=== PATIENT | male | born 1950 | race Caucasian/White ===

== ENCOUNTER → 2018-04-01 | Outpatient (CLI) | payer MEDICARE, MEDICAID | LOC: WOUNDCARE 08:09 | PROVIDERS: ATTEND Nurse Practitioner | DX: L89.153 Pressure ulcer of sacral region, stage 3 (principal) | CPT/HCPCS: 99203 ==

== ENCOUNTER → 2018-04-29 | Outpatient (CLI) | payer MEDICARE, MEDICAID | LOC: RAD 12:29 | PROVIDERS: ATTEND Nurse Practitioner | DX: L89.153 Pressure ulcer of sacral region, stage 3 (principal); Z53.8 Procedure and treatment not carried out for other reasons ==

== ENCOUNTER → 2018-04-29 | Outpatient (CLI) | payer MEDICARE, MEDICAID | LOC: WOUNDCARE 10:44 | PROVIDERS: ATTEND Nurse Practitioner | DX: L89.153 Pressure ulcer of sacral region, stage 3 (principal) | CPT/HCPCS: 99213 ==

== ENCOUNTER → 2018-05-06 | Outpatient (CLI) | payer MEDICARE, MEDICAID | LOC: WOUNDCARE 11:03 | PROVIDERS: ATTEND Nurse Practitioner | DX: L89.153 Pressure ulcer of sacral region, stage 3 (principal) | CPT/HCPCS: 99213 ==

== ENCOUNTER → 2018-05-16 | Outpatient (CLI) | payer MEDICARE, MEDICAID ==
--- NOTE | 2018-05-16 11:53 | Diagnostic Imaging Report ---
INDICATION: Pressure ulcer. COMPARISON: None. FINDINGS: Multiple radiographic views of the sacrum and coccyx were obtained. Coccyx is very difficult to visualize on the lateral view and does raise concern for potential underlying osteolysis. No other acute fracture or dislocation is seen. SI joints are symmetric. Overall bone marrow density is also diminished throughout the visualized portions of the pelvis. Postsurgical changes of previous bilateral hip replacements are noted. There is also diffuse calcified arterial sclerosis. IMPRESSION: 1. Poor visualization of the coccyx on the lateral view. Findings may be artifactual and related to obscuration, but does raise concern for underlying osteolysis related to osteomyelitis. Correlation with MRI is recommended. Dictated by: Dictated on workstation # [id number]
== END ==
LOC: RAD FS 10:38
PROVIDERS: ATTEND Nurse Practitioner
DX: L89.153 Pressure ulcer of sacral region, stage 3 (principal); Z96.643 Presence of artificial hip joint, bilateral
CPT/HCPCS: 72220

== ENCOUNTER → 2018-05-20 | Outpatient (CLI) | payer MEDICARE, MEDICAID | LOC: WOUNDCARE 10:40 | PROVIDERS: ATTEND Nurse Practitioner | DX: L89.153 Pressure ulcer of sacral region, stage 3 (principal) | CPT/HCPCS: 99212 ==

== ENCOUNTER 2018-05-27 17:22 | Inpatient (IN) | payer MEDICARE, MEDICAID ==
[~2018-05-27] VITALS: Ht 172.7 cm; Wt 62.2 kg
[2018-05-27] VITALS (23 sets, daily range): BP systolic 86–164; BP diastolic 26–98
[2018-05-27] MEDS ORDERED: RT-ALBUTEROL/IPRATROPIUM 3 ML (DUONEB) VIAL INH ONE (17:30)
[2018-05-27] MEDS ORDERED: NS IV 1000 ML 1,000 ML IV SCH ×2 (17:30→20:00)
[2018-05-27] MEDS ORDERED: CEFEPIME INJECTION 1,000 MG in WATER (STERILE) FOR INJECTION 10 ML IV ONE (17:30)
--- NOTE | 2018-05-27 17:38 | ED General ---
General Source of Information: Patient, EMS Exam Limitations: No Limitations (XU KNOX) History of Present Illness Date Seen by Provider: May 27, 2018 Time Seen by Provider: 17:16 Initial Comments Patient presents to ER by EMS from [facility] with chief complaint of one day abrupt onset of weakness, fever Tmax 102 and productive cough. 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 He took ibuprofen approximately 2 hours prior to arrival 400 mg. He says it helped moderately but he started to feel some chills and body aches again. He still smokes cigarettes. He's having no nausea vomiting diarrhea headache. EMS that he had a good blood pressure and was tachycardic around 105 but they were unable to get an adequate oxygen saturation on him. (XU KNOX) Allergies and Home Medications Allergies Coded Allergies: No Known Drug Allergies (Unverified , 05/27/18) Patient Home Medication List Home Medication List Reviewed: Yes (XU KNOX) Home Medication List Reviewed: Yes (PRASAD MONTOYA MD) Review of Systems Review of Systems Constitutional: No chills, No diaphoresis EENTM: No ear discharge, No ear pain Respiratory: cough, phlegm; No short of breath; wheezing Cardiovascular: No chest pain, No edema Gastrointestinal: No abdominal pain, No diarrhea, No nausea Genitourinary: No discharge, No dysuria Musculoskeletal: No back pain, No joint pain Skin: No pruritus, No rash (XU KNOX) Past Fjegnzc-Knsajq-Xljnwa Hx Past Med/Social Hx: Reviewed Nursing Past Med/Soc Hx (PRASAD MONTOYA MD) Patient Social History Alcohol Use: Denies Use Recreational Drug Use: No Smoking Status: Current Everyday Smoker Type Used: Cigarettes Recent Foreign Travel: No Contact w/Someone Who Travel: No (XU KNOX) Physical Exam-Suspected Sepsis Physical Exam Vital Signs Vital Signs - First Documented 05/27/18 05/27/18 17:25 17:40 Temp 101.4 Pulse 95 Resp 22 B/P (MAP) 141/82 (101) Pulse Ox 82 O2 Delivery Room Air O2 Flow Rate 3.00 FiO2 95 (PRASAD MONTOYA MD) Vital Signs Capillary Refill : (XU KNOX) Height, Weight, BMI Height: '" Weight: lbs. oz. kg; BMI Method: General Appearance: Mild Distress, Thin Eyes: Bilateral Eye Normal Inspection, Bilateral Eye PERRL, Bilateral Eye EOMI HEENT: PERRL/EOMI, Pharynx Normal, Moist Mucous Membranes Neck: Full Range of Motion, Normal Inspection Respiratory: Chest Non Tender, No Accessory Muscle Use, No Respiratory Distress , Decreased Breath Sounds, Rhonci (mild, bilateral), Wheezing Cardiovascular: Regular Rate, Rhythm, No Edema, Normal Peripheral Pulses, Tachycardia (102) Gastrointestinal: Normal Bowel Sounds, Non Tender, Soft Extremity: Normal Inspection, Non Tender, No Calf Tenderness, No Pedal Edema, Slow Capillary Refill (3-4 secs) Neurologic/Psychiatric: Alert, Oriented x3, No Motor/Sensory Deficits, Normal Mood/Affect Skin: warm/dry, pallor (XU KNOX) Focused Exam Lactate Level 05/27/18 18:00: Lactic Acid Level 1.02 (PRASAD MONTOYA MD) Lactic Acid Level (PRASAD MONTOYA MD) Progress/Results/Core Measures Suspected Sepsis SIRS Temperature: Pulse: Respiratory Rate: Laboratory Tests 05/27/18 17:20: White Blood Count 11.5H Blood Pressure / Mean: Laboratory Tests 05/27/18 17:20: INR Comment 1.2, Platelet Count 266 (XU KNOX) Recent Fever Within 48 Hours: Yes Infection Criteria Present: Documented Infection Within 3hrs of presentation: Admin fluids, Admin ABX, Blood cultures prior to ABX's, Lactate level, Other (Levophed for hypotension) (PRASAD MNOTOYA MD) Results/Orders Lab Results Laboratory Tests Test 05/27/18 17:20 05/27/18 17:40 05/27/18 18:00 05/27/18 20:20 Range/Units White Blood Count 11.5 H 4.3-11.0 10^3/uL Red Blood Count 4.67 4.35-5.85 10^6/uL Hemoglobin 13.1 L 13.3-17.7 G/DL Hematocrit 42 40-54 % Mean Corpuscular Volume 89 80-99 FL Mean Corpuscular Hemoglobin 28 25-34 PG Mean Corpuscular Hemoglobin Concent 31 L 32-36 G/DL Red Cell Distribution Width 15.9 H 10.0-14.5 % Platelet Count 266 130-400 10^3/uL Mean Platelet Volume 11.6 H 7.4-10.4 FL Neutrophils (%) (Auto) 86 H 42-75 % Lymphocytes (%) (Auto) 8 L 12-44 % Monocytes (%) (Auto) 5 0-12 % Eosinophils (%) (Auto) 1 0-10 % Basophils (%) (Auto) 0 0-10 % Neutrophils # (Auto) 9.8 H 1.8-7.8 X 10^3 Lymphocytes # (Auto) 0.9 L 1.0-4.0 X 10^3 Monocytes # (Auto) 0.6 0.0-1.0 X 10^3 Eosinophils # (Auto) 0.2 0.0-0.3 10^3/uL Basophils # (Auto) 0.0 0.0-0.1 10^3/uL Neutrophils % (Manual) 79 % Lymphocytes % (Manual) 14 % Monocytes % (Manual) 2 % Eosinophils % (Manual) 0 % Basophils % (Manual) 0 % Band Neutrophils 5 % Blood Morphology Comment NORMAL Prothrombin Time 14.9 H 12.2-14.7 SEC INR Comment 1.2 0.8-1.4 Activated Partial Thromboplast Time 35 24-35 SEC Sodium Level 132 L 135-145 MMOL/L Potassium Level 5.2 H 3.6-5.0 MMOL/L Chloride Level 96 L 98-107 MMOL/L Carbon Dioxide Level 29 21-32 MMOL/L Anion Gap 7 5-14 MMOL/L Blood Urea Nitrogen 14 7-18 MG/DL Creatinine 0.99 0.60-1.30 MG/DL Estimat Glomerular Filtration Rate > 60 BUN/Creatinine Ratio 14 Glucose Level 80 70-105 MG/DL Calcium Level 9.4 8.5-10.1 MG/DL Corrected Calcium 9.5 8.5-10.1 MG/DL Total Bilirubin 0.3 0.1-1.0 MG/DL Aspartate Amino Transf (AST/SGOT) 45 H 5-34 U/L Alanine Aminotransferase (ALT/SGPT) 25 0-55 U/L Alkaline Phosphatase 107 40-136 U/L Total Protein 7.6 6.4-8.2 GM/DL Albumin 3.9 3.2-4.5 GM/DL Blood Gas Puncture Site RT RADIAL Blood Gas Patient Temperature 101.1 Arterial Blood pH 7.40 7.37-7.43 Arterial Blood Partial Pressure CO2 46 H 35-45 MMHG Arterial Blood Partial Pressure O2 46 L 79-93 MMHG Arterial Blood HCO3 29 H 23-27 MMOL/L Arterial Blood Total CO2 29.9 21.0-31.0 MMOL/L Arterial Blood Oxygen Saturation 82 L 94-100 % Arterial Blood Base Excess 3.1 H -2.5-2.5 MMOL/L [place] Test YES-POS Blood Gas Ventilator Setting NO Blood Gas Inspired Oxygen ROOM AIR Lactic Acid Level 1.02 0.50-2.00 MMOL/L Urine Color YELLOW Urine Clarity CLEAR Urine pH 5 5-9 Urine Specific [place] 1.015 L 1.016-1.022 Urine Protein 1+ H NEGATIVE Urine Glucose (UA) NEGATIVE NEGATIVE Urine Ketones NEGATIVE NEGATIVE Urine Nitrite NEGATIVE NEGATIVE Urine Bilirubin NEGATIVE NEGATIVE Urine Urobilinogen NORMAL NORMAL MG/DL Urine Leukocyte Esterase 1+ H NEGATIVE Urine RBC (Auto) NEGATIVE NEGATIVE Urine RBC NONE /HPF Urine WBC 2-5 /HPF Urine Squamous Epithelial Cells 0-2 /HPF Urine Crystals NONE /LPF Urine Bacteria TRACE /HPF Urine Casts NONE /LPF Urine Mucus SMALL H /LPF Urine Culture Indicated NO Test 05/28/18 03:15 Range/Units White Blood Count 6.6 4.3-11.0 10^3/uL Red Blood Count 4.58 4.35-5.85 10^6/uL Hemoglobin 13.0 L 13.3-17.7 G/DL Hematocrit 40 40-54 % Mean Corpuscular Volume 88 80-99 FL Mean Corpuscular Hemoglobin 28 25-34 PG Mean Corpuscular Hemoglobin Concent 32 32-36 G/DL Red Cell Distribution Width 15.8 H 10.0-14.5 % Platelet Count 185 130-400 10^3/uL Mean Platelet Volume 11.4 H 7.4-10.4 FL Neutrophils (%) (Auto) 95 H 42-75 % Lymphocytes (%) (Auto) 4 L 12-44 % Monocytes (%) (Auto) 1 0-12 % Eosinophils (%) (Auto) 0 0-10 % Basophils (%) (Auto) 0 0-10 % Neutrophils # (Auto) 6.2 1.8-7.8 X 10^3 Lymphocytes # (Auto) 0.3 L 1.0-4.0 X 10^3 Monocytes # (Auto) 0.0 0.0-1.0 X 10^3 Eosinophils # (Auto) 0.0 0.0-0.3 10^3/uL Basophils # (Auto) 0.0 0.0-0.1 10^3/uL (PRASAD MONTOYA MD) Micro Results Microbiology 05/27/18 Influenza Types A,B Antigen (DAVID) - Final, Complete (PRASAD MONTOYA MD) My Orders Orders - PRASAD MONTOYA MD Acetaminophen Tablet (Tylenol Tablet) (05/27/18 18:45) Nicotine Patch (Nicoderm Patch) (05/27/18 19:30) Methylprednisolone Sod Succ (Solu-Medrol (05/27/18 19:30) Ns Iv 1000 Ml (Sodium Chloride 0.9%) (05/27/18 20:00) Norepinephrine (Levophed) (05/27/18 21:00) Ns Iv 1000 Ml (Sodium Chloride 0.9%) (05/27/18 22:17) (PRASAD MONTOYA MD) Medications Given in ED Current Medications Medications Dose Ordered Sig/Ignacio Route Start Time Stop Time Status Last Admin Dose Admin Acetaminophen 1,000 mg ONCE ONCE PO 05/27/18 18:45 05/27/18 18:46 DC 05/27/18 18:40 1,000 MG Albuterol/ Ipratropium 3 ml ONCE ONCE INH 05/27/18 17:30 05/27/18 17:33 DC 05/27/18 18:13 3 ML Cefepime HCl 1000 mg/Sterile Water 10 ml @ 200 mls/hr ONCE ONCE IV 05/27/18 17:30 05/27/18 17:33 DC 05/27/18 18:13 200 MLS/HR Methylprednisolone Sodium Succinate 125 mg ONCE ONCE IVP 05/27/18 19:30 05/27/18 19:31 DC 05/27/18 19:26 125 MG (PRASAD MONTOYA MD) Vital Signs/I&O 05/27/18 05/27/18 05/27/18 05/27/18 17:25 17:30 17:40 17:45 Temp 101.4 Pulse 95 98 97 Resp 22 20 B/P (MAP) 141/82 (101) 156/72 (100) 164/78 (106) Pulse Ox 82 95 O2 Delivery Room Air Nasal Cannula O2 Flow Rate 3.00 FiO2 95 05/27/18 05/27/18 05/27/18 05/27/18 18:00 18:15 18:30 18:45 Pulse 93 96 104 100 Resp 15 18 17 13 B/P (MAP) 147/72 (97) 147/71 (96) 162/91 (114) 141/89 (106) 05/27/18 05/27/18 05/27/18 05/27/18 19:00 19:15 19:30 19:45 Temp 100.7 Pulse 100 101 98 98 Resp 15 14 16 19 B/P (MAP) 151/80 (103) 126/98 (107) 123/56 (78) 86/26 (46) Pulse Ox 96 O2 Delivery Nasal Cannula O2 Flow Rate 3.00 05/27/18 05/27/18 05/27/18 05/27/18 20:00 20:15 20:30 20:45 Temp 99.6 Pulse 97 93 89 84 Resp 15 15 16 16 B/P (MAP) 86/46 (59) 97/45 (62) 88/47 (61) 87/64 (72) Pulse Ox 99 05/27/18 05/27/18 05/27/18 05/27/18 21:00 21:16 22:05 22:10 Temp 98.4 98.8 Pulse 83 83 79 80 Resp 12 16 14 B/P (MAP) 94/54 (67) 95/51 (66) 105/62 (76) Pulse Ox 98 99 94 O2 Delivery Nasal Cannula Nasal Cannula Nasal Cannula O2 Flow Rate 3.00 3.00 3.00 05/27/18 05/27/18 05/27/18 05/27/18 22:15 22:30 22:37 22:45 Pulse 77 73 73 Resp 10 11 12 B/P (MAP) 95/59 (71) 99/61 (74) 96/60 (72) Pulse Ox 94 96 96 O2 Delivery Nasal Cannula Nasal Cannula Nasal Cannula Nasal Cannula O2 Flow Rate 3.00 3.00 3.00 3.00 05/27/18 05/27/18 05/27/18 05/27/18 22:55 23:00 23:15 23:30 Pulse 71 68 65 Resp 16 15 12 B/P (MAP) 93/63 (73) 104/62 (76) 100/62 (75) Pulse Ox 98 98 90 97 O2 Delivery Nasal Cannula Nasal Cannula Nasal Cannula Nasal Cannula O2 Flow Rate 3.00 3.00 3.00 3.00 05/27/18 05/28/18 05/28/18 05/28/18 23:45 00:00 00:00 00:15 Temp 99.0 Pulse 63 61 Resp 12 9 B/P (MAP) 103/62 (76) 120/69 (86) Pulse Ox 96 98 96 O2 Delivery Nasal Cannula Nasal Cannula Nasal Cannula O2 Flow Rate 3.00 3.00 3.00 05/28/18 05/28/18 05/28/18 05/28/18 01:00 01:00 01:25 02:00 Pulse 63 63 63 62 Resp 10 10 B/P (MAP) 90/51 (64) 118/60 (79) Pulse Ox 98 99 99 O2 Delivery Nasal Cannula Nasal Cannula O2 Flow Rate 3.00 3.00 FiO2 32 05/28/18 05/28/18 05/28/18 03:00 03:50 03:55 Temp 98.9 Pulse 62 Resp 11 B/P (MAP) 128/56 (80) Pulse Ox 100 100 O2 Delivery Nasal Cannula Nasal Cannula O2 Flow Rate 3.00 3.00 05/28/18 00:00 Intake Total 1000 ml Balance 1000 ml (PRASAD MONTOYA MD) Vital Signs/I&O Capillary Refill : (XU KNOX) Progress Note : Time: 17:45 Progress Note Plan to give a gram of Tylenol since he has a fever now and get a flu swab. Septic workup to include cultures and a fluid bolus of 1 L which would be just 40 mL less then 20 mils per kilogram. His capillary refill is sluggish about 3- 4 seconds and is probably contributing to our inability to get a good pulsatile waveform on the pulse oximetry. We are going to obtain an ABG. (XU KNOX) Progress Note #1: Time: 18:30 Progress Note I assumed care of the patient at shift change. Awaiting test results and anticipate admit for pneumonia and COPD. His Influenza swab was negative. His CBC shows mild increase in WBC count. His lactic acid is still pending. His ABG may have been more of a mixed sample since he has a 7.4 pH with pCO2 of 46 and pO2 of 46. His O2sats are reading in mid 90s when he is on 3 Lpm by n.c. Will continue with IVF, Cefepime and add on Acetaminophen for his fever. Progress Note #2: Time: 19:29 Progress Note His lactic acid came back in the normal range so it appeared that he was not septic but he did have the infiltrate and possible mass on his chest x-ray. He is still running the fever and showing signs of infection with his elevated white blood cell count and left shift. Will check with the hospitalist at [facility] to see if they would be able to admit the patient since he is a Dr. Rochelle Vasquez patient. After speaking with Dr. Elizabeth, He did accept the patient in transfer. Progress Note #3: Time: 20:00 Progress Note Repeat Fluid bolus ordered on patient because he was becoming hypotensive after his cefepime had infused. I called and updated Dr. Elizabeth about the change in the patient status and he did want to change the patient to an ICU bed. He had mild improvement in his pressure with the fluid bolus again but it was not completely resolving so he was started on Levophed to get his pressure up over 100 systolic prior to transfer. (PRASAD MONTOYA MD) Diagnostic Imaging Diagonstic Imaging: Xray Plain Films/CT/US/NM/MRI: chest (1v) Reviewed: Reviewed by Me (XU KNOX) Comments NAME: TRISTAN MESSINA [facility] REC#: [id number] PT STATUS: REG ER : 1950 PHYSICIAN: XU KNOX MD ADMIT DATE: 05/27/18/ER FS Signed Date of Exam:05/27/18 CHEST 1 VIEW AP/PA ONLY INDICATION: Chest pain. COMPARISON: 03/03/2012. FINDINGS: Hyperaerated lung volumes present. Architectural distortion in the upper lobes may relate to underlying emphysema. Small nodular focus in the mid right lung zone is more conspicuous than prior examination. No pleural effusion or pneumothorax. Heart is not enlarged. IMPRESSION: 1. Right midlung zone nodular opacity is more conspicuous than prior exam. This may represent a focus of infection, although neoplasm could also have this appearance. Advise followup PA and lateral chest radiographs in 4 weeks after appropriate medical management to ensure resolution. 2. COPD. Dictated by: Dictated on workstation # [id number] Dict: 05/27/181807 Trans: 05/27/181827 [id number] Interpreted by: RORY PÉREZ MD Electronically signed by: RORY PÉREZ MD 05/27/181827 (PRASAD MONTOYA MD) Transfer of Care Transfer of Care Time: 18:01 Care transferred to: Dr Montoya (XU KNOX) Critical Care Note Critical Care Total Time (minutes) 45 minutes Progress 45 minutes of time spent in direct care of the patient. Time spent in reviewing the chart, obtaining history from patient and chart, reviewing test results, ordering tests and reviewing results, ordering interventions and reviewing response, discussion with consultants and admitting provider and patient, documentation in the chart. (PRASAD MONTOYA MD) Departure Communication (Admissions) Time/Spoke to Admitting Phy: 19:[address] Elizabeth and patient accepted for pneumonia and COPD exacerbation to [facility] In Patient. He did request Pulmonary consult with Dr. Whitley in the AM. Updated Dr. Elizabeth about the patient having hypotension develop after antibiotics had infused and needing additional fluids and plan to start levophed if not responding to 30 ml/kg bolus. Family Conversation Advised of need to admit and transfer to [facility]. Also counseled on need to give fluids and medicine to support his blood pressure. Will need to watch in the ICU for tonight at least and make sure he is improving before he could be moved to the floor. (PRASAD MONTOYA MD) Impression Primary Impression: Right middle lobe pulmonary infiltrate Additional Impressions: COPD with exacerbation Fever and chills Disposition: 09 ADMITTED INPATIENT Condition: Stable Admissions Decision to Admit Reason: Admit from ER (General) Decision to Admit/Date: May 27, 2018 Time/Decision to Admit Time: 19:36 (PRASAD MONTOYA MD) Departure-Patient Inst. Referrals: ROCHELLE VASQUEZ MD (PCP) Primary Care Physician NO,LOCAL PHYSICIAN (Family) Primary Care Physician XU KNOX May 27, 2018 17:38 PRASAD MONTOYA MD May 27, 2018 18:37
[2018-05-27 17:42] LABS: HEMOGLOBIN 13.1 G/DL (13.3-17.7); MEAN CORPUSCULAR HEMOGLOBIN 28 PG (25-34); WHITE BLOOD COUNT 11.5 10^3/uL (4.3-11.0)
[2018-05-27 17:43] LABS: BASOPHILS % (AUTO) 0 % (0-10); EOSINOPHILS # (AUTO) 0.2 10^3/uL (0.0-0.3); EOSINOPHILS % (AUTO) 1 % (0-10); HEMATOCRIT 42 % (40-54); LYMPHOCYTES # (AUTO) 0.9 X 10^3 (1.0-4.0); LYMPHOCYTES % (AUTO) 8 % (12-44); MEAN CORPUSCULAR HGB CONC 31 G/DL (32-36); MEAN CORPUSCULAR VOLUME 89 FL (80-99); MEAN PLATELET VOLUME 11.6 FL (7.4-10.4); MONOCYTES # (AUTO) 0.6 X 10^3 (0.0-1.0); MONOCYTES % (AUTO) 5 % (0-12); NEUTROPHILS # (AUTO) 9.8 X 10^3 (1.8-7.8); NEUTROPHILS % (AUTO) 86 % (42-75); PLATELET COUNT 266 10^3/uL (130-400); RED CELL DISTRIBUTION WIDTH 15.9 % (10.0-14.5)
[2018-05-27 17:49] LABS: INR 1.2 (0.8-1.4); PROTHROMBIN TIME PATIENT 14.9 SEC (12.2-14.7)
[2018-05-27 17:54] LABS: BAND NEUTROPHILS 5 %; BASOPHILS % (MANUAL) 0 %; EOSINOPHILS % (MANUAL) 0 %; LYMPHOCYTES % (MANUAL) 14 %; MONOCYTES % (MANUAL) 2 %; NEUTROPHILS % (MANUAL) 79 %; RBC MORPH NORMAL
[2018-05-27 18:01] LABS: ABG BASE EXCESS 3.1 MMOL/L (-2.5-2.5); ABG OXYGEN SATURATION 82 % (94-100); ABG TCO2 29.9 MMOL/L (21.0-31.0)
[2018-05-27 18:04] LABS: ALLENS TEST YES-POS
[2018-05-27 18:06] LABS: ABG PCO2 46 MMHG (35-45); ABG PO2 46 MMHG (79-93); INSPIRED O2 ROOM AIR; PATIENT TEMP 101.1; VENTILATOR NO
[2018-05-27 18:12] LABS: BUN/CREATININE RATIO 14; CARBON DIOXIDE 29 MMOL/L (21-32); CHLORIDE 96 MMOL/L (98-107); CREATININE SERUM 0.99 MG/DL (0.60-1.30); GFR ESTIMATED > 60; POTASSIUM 5.2 MMOL/L (3.6-5.0); SODIUM 132 MMOL/L (135-145)
[2018-05-27 18:13] LABS: ALANINE AMINOTRANSFERASE 25 U/L (0-55); ALBUMIN 3.9 GM/DL (3.2-4.5); ALKALINE PHOSPHATASE 107 U/L (40-136); BILIRUBIN,TOTAL 0.3 MG/DL (0.1-1.0); CALCIUM 9.4 MG/DL (8.5-10.1); GLUCOSE 80 MG/DL (70-105); TOTAL PROTEIN 7.6 GM/DL (6.4-8.2)
--- NOTE | 2018-05-27 18:14 | Diagnostic Imaging Report ---
INDICATION: Chest pain. COMPARISON: 03/03/2012. FINDINGS: Hyperaerated lung volumes present. Architectural distortion in the upper lobes may relate to underlying emphysema. Small nodular focus in the mid right lung zone is more conspicuous than prior examination. No pleural effusion or pneumothorax. Heart is not enlarged. IMPRESSION: 1. Right midlung zone nodular opacity is more conspicuous than prior exam. This may represent a focus of infection, although neoplasm could also have this appearance. Advise followup PA and lateral chest radiographs in 4 weeks after appropriate medical management to ensure resolution. 2. COPD. Dictated by: Dictated on workstation # [id number]
[2018-05-27] MEDS ORDERED: ACETAMINOPHEN 500 MG TAB (TYLENOL) PO ONE (18:45)
--- OUTSIDE RECORDS SUMMARY | 2018-05-27 19:05 | XMS REPORT ---
Author Author [facility] Medical Staff Organization [facility] Address [address] [place], [place] [address] Phone [phone] Care Team Providers Care Materials Tech Name Role Phone JUANITO PHELAN, KRISTIN BARRON [phone] Summary purpose CCDA Sent to [facility] Chief Complaint and Reason for Visit Admit Diagnosis 1 COUGH Problem list No authorized problems tracked for continuity of care are available for this visit. Encounters No authorized problems tracked for encounter diagnoses are available for this visit. Medications No home medications recorded for this patient visit Allergies, adverse reactions, alerts Allergen Category Ingredient Status Reaction Severity Onset NKDA Drug NKDA Inactive Immunizations No immunizations recorded for this patient visit Relevant diagnostic tests and/or laboratory data RESULTS CBC [id number]:00 Result Normal Range Units WBC H 11.65 4.60-10.20 x 103/uL RBC 4.43 4.04-6.13 x 106/uL Hemoglobin 13.2 12.2-18.1 g/dl Hematocrit 40.3 37.7-53.7 % MCV 91.0 80.0-97.0 FL MCH 29.8 27.0-31.2 pg MCHC 32.8 31.8-35.4 g/dl RDW 13.3 11.6-14.8 % Platelets 329 142-424 x 103/uL MPV 10.7 9.4-12.4 FL Manual Diff Not Indicated Neutrophil % 78.2 37-80 % Neutrophils H 9.11 2.0-6.9 x 103/uL Lymphocyte % 13.5 10-50 % Manual Diff Not Indicated Lymphocytes 1.57 0.6-3.4 x 103/uL Monocyte % 5.8 0-12 % Monocytes 0.67 0.0-1.0 x 103/uL Eosinophil % 2.1 0-7 % Eosinophils 0.25 0-0.7 x 103/uL Basophil % 0.4 0-2 % Basophils 0.05 0.0-0.1 x 103/uL Serology Group [id number] Result Normal Range Units Mycoplasma Pneumo Negative Negative Chemistry Group [id number] Result Normal Range Units Glucose 97 65-110 mg/dl BUN 14 7-21 mg/dl Creatinine 1.0 0.7-1.5 mg/dl Sodium 141 137-145 mmol/L Potassium H 5.1 3.6-5.0 mmol/L Chloride 105 98-107 mmol/L CO2 22 22-30 mmol/L BUN/Creatinine Ratio 14.2 7-25 Ratio Calcium 9.9 8.4-10.2 mg/dl Protein Total 7.3 6.3-8.2 g/dl Albumin 4.4 3.5-5.0 g/dl A/G Ratio 1.5 1.2-2.2 Ratio AST 21 15-46 U/L ALT 28 7-56 U/L ALP H 176 38-126 U/L Bilirubin Total 0.7 0.2-1.3 mg/dl Osmolality 272 261-280 mOsm/kg Globulin 3.0 2.4-3.5 g/dL History of procedures Procedure Code Code Type Description Date Performed Performing Physician 89340 CPT-4 COMPLETE CBC W/AUTO DIFF WBC 09-09-2014 KRISTIN SOLOMON 47969 CPT-4 COMPREHEN METABOLIC PANEL 09-09-2014 KRISTIN SOLOMON 23229 CPT-4 MYCOPLASMA ANTIBODY 09-09-2014 KRISTIN SOLOMON 55573 CPT-4 CHEST X-RAY 2VW FRONTAL&LATL 09-09-2014 KRISTIN SOLOMON 07429 CPT-4 ROUTINE VENIPUNCTURE 09-09-2014 KRISTIN SOLOMON Functional status No functional or cognitive status observations are available for this visit. Vital signs No authorized vital signs are available for this visit. Social history No Social History or smoking status observations were recorded for this visit. ( Unknown if ever smoked.) Treatment Plan No treatment plan text is available for this visit. Hospital discharge instructions No discharge instruction text is available for this visit.
--- OUTSIDE RECORDS SUMMARY | 2018-05-27 19:05 | XMS REPORT ---
Author Author [facility] Medical Staff Organization [facility] Address [address] [place], [place] [address] Phone [phone] Care Team Providers Care Abrasive Worker Name Role Phone KRISTIN SOLOMON MD PP [phone] Summary purpose CCDA Sent to [facility] Chief Complaint and Reason for Visit No authorized Reason for Visit (Admitting Diagnosis) is available for this visit. Problem list No authorized problems tracked for continuity of care are available for this visit. Encounters No authorized problems tracked for encounter diagnoses are available for this visit. Medications No medications recorded for this patient visit Allergies, adverse reactions, alerts Allergen Category Ingredient Status Reaction Severity Onset NKDA Drug NKDA Inactive No Known Drug Allergies No known drug allergies No Known Drug Allergies Active Immunizations No immunizations recorded for this patient visit Relevant diagnostic tests and/or laboratory data No authorized results are available for this patient visit History of procedures Procedure Code Code Type Description Date Performed Performing Physician 52181 CPT-4 ELECTROCARDIOGRAM REPORT 07-07-2015 JOANNA ISIDRO Functional status No functional or cognitive status [...]
--- OUTSIDE RECORDS SUMMARY | 2018-05-27 19:06 | XMS REPORT ---
Author Author [facility] Medical Staff Organization [facility] Address [address] [place], [place] [address] Phone [phone] Care Team Providers Care Field Contact Person Name Role Phone KRISTIN SOLOMON MD PP [phone] KRISTIN SOLOMON MD, PP [phone] Summary purpose CCDA Sent to [facility] Chief Complaint and Reason for Visit No authorized Reason for Visit (Admitting Diagnosis) is available for this visit. Problem list Condition Status Certainty Chronicity Onset .Agitation; Risk for altered social interaction Active .Aggression(Unsocialized behavior disorder); Risk for harm to self or others Active Encounters The following conditions tracked for encounter diagnoses were recorded for this visit: Finding or Diagnosis Status Certainty Chronicity Onset .Agitation; Risk for altered social interaction Active .Aggression(Unsocialized behavior disorder); Risk for harm to self or others Active Medications Discharge Medications Status Medication Directions Current acetaminophen-codeine (ACETAMINOPHEN/CODEINE) 300-30 mg: TABLET 1 TAB oral EVERY SIX HOURS NEEDED for PAIN Current albuterol sulfate (ALBUTEROL) 2.5 mg /3 mL (0.083 %): NEBULE 2.5 MG inhalation Give INHL RESP 4XDAY Current cetirizine (ZYRTEC) 10 mg: TABLET 10 MG oral ONE TIME A DAY Current diphenoxylate-atropine (LOMOTIL) 2.5-0.025 mg: TABLET 2 TAB oral THREE TIMES A DAY Current DULoxetine (CYMBALTA) 30 mg: Cap DR 30 MG oral TWO TIMES A DAY Current fentaNYL (DURAGESIC) 75 mcg/hr: PATCH TD72 1 PATCH Transdermal Give TD EVERY SEVENTY TWO HOURS Current furosemide (LASIX) 40 mg: TABLET 40 MG oral ONE TIME A DAY Current HYDROcodone-acetaminophen (HYDROCODONE/APAP) 5-325 mg: TABLET 1 TAB oral EVERY FOUR HOURS NEEDED for PAIN Current ibuprofen (MOTRIN) 200 mg: TABLET 400 MG oral EVERY SIX HOURS NEEDED for PAIN Current LORazepam (ATIVAN) 1 mg: TABLET 1 MG oral THREE TIMES A DAY Current megestrol (MEGACE) 400 mg/10 mL (10 mL): CUP 400 MG oral TWO TIMES A DAY Current mirtazapine (REMERON) 15 mg: TABLET 22.5 MG oral BEDTIME Current nicotine (NICODERM CQ) 14 mg/24 hr: PATCH TD24 1 PATCH Transdermal Give TD ONE TIME A DAY Current NYSTATIN/TRIAMCIN (NYSTATIN-TRIAMCINOLONE) 1 APPLICATION topical TOP EVERY DAY NEEDED for RASH Current pantoprazole (PROTONIX) 40 mg: Tab DR 40 MG oral ONE TIME A DAY Current potassium chloride (KLOR-CON) 10 mEq: Tab ER 12HR 10 MEQ oral ONE TIME A DAY Current pregabalin (LYRICA) 50 mg: capsule 200 MG oral TWO TIMES A DAY Current QUEtiapine (SEROQUEL) 25 mg: TABLET 25 MG oral TWO TIMES A DAY Current QUEtiapine (SEROQUEL) 25 mg: TABLET 37.5 MG oral BEDTIME Current sodium chloride (OCEAN) 0.65 %: SPRAY 3 SPRAYS nasal Give NareBoth TWO TIMES A DAY Current spironolactone (ALDACTONE) 25 mg: TABLET 25 MG oral ONE TIME A DAY Current traZODone (DESYREL) 100 mg: TABLET 50 MG oral BEDTIME Stopped albuterol sulfate 0.63 mg/3 mL solution for nebulization 1 inhalation (s) inhalation FOUR TIMES A DAY Stopped Aldactone 25 mg tablet 25 miligram(s) oral ONE TIME A DAY Stopped Ativan 1 mg tablet 1 miligram(s) oral THREE TIMES A DAY Stopped Celexa 20 mg tablet 20 miligram(s) oral ONE TIME A DAY Stopped Claritin 10 mg tablet 10 miligram(s) oral ONE TIME A DAY Stopped fentaNYL 75 mcg/hr transdermal patch 1 patch(es) Transdermal EVERY SEVENTY TWO HOURS last patch placed 07-06-15 at 0630 Stopped ibuprofen 200 mg capsule 400 miligram(s) oral EVERY SIX HOURS NEEDED Stopped Lasix 40 mg tablet 40 miligram(s) oral ONE TIME A DAY Stopped Lomotil 2.5 mg-0.025 mg tablet 2 tab(s) oral THREE TIMES A DAY Stopped Lortab 5 mg-325 mg tablet 1 tab(s) oral EVERY FOUR HOURS NEEDED Stopped Lyrica 200 mg capsule 200 miligram(s) oral TWO TIMES A DAY Stopped Megace 400 mg/10 mL (40 mg/mL) oral suspension 10 milliliter(s) oral TWO TIMES A DAY Stopped nystatin-triamcinolone 100,000 unit/gram-0.1 % topical ointment 1 application(s) topical EVERY DAY NEEDED Stopped omeprazole 20 mg capsule,delayed release 20 miligram(s) oral ONE TIME A DAY Stopped potassium chloride ER 10 mEq capsule,extended release 10 milliequivilant(s) oral ONE TIME A DAY Stopped Saline Nasal Mist 3 % 3 spray(s) nasal TWO TIMES A DAY Stopped traZODone 50 mg tablet 50 miligram(s) oral BEDTIME Stopped Tylenol-Codeine #3 300 mg-30 mg tablet 1 tab(s) oral EVERY SIX HOURS Stopped WelChol 3.75 gram oral powder packet 3.75 gram(s) oral ONE TIME A DAY Allergies, adverse reactions, alerts Allergen Category Ingredient Status Reaction Severity Onset NKDA Drug NKDA Inactive No Known Drug Allergies No known drug allergies No Known Drug Allergies Active Immunizations No immunizations recorded for this patient visit Relevant diagnostic tests and/or laboratory data RESULTS CBC [id number]:25:00 Result Normal Range Units WBC 9.46 4.60-10.20 x 103/uL RBC 4.35 4.04-6.13 x 106/uL Hemoglobin 13.4 12.2-18.1 g/dl Hematocrit 39.2 37.7-53.7 % MCV 90.1 80.0-97.0 FL MCH 30.8 27.0-31.2 pg MCHC 34.2 31.8-35.4 g/dl RDW 14.1 11.6-14.8 % Platelets 216 142-424 x 103/uL MPV 11.2 9.4-12.4 FL Manual Diff Not Indicated Neutrophil % 69.9 37-80 % Neutrophils 6.61 2.0-6.9 x 103/uL Lymphocyte % 22.0 10-50 % Lymphocytes 2.08 0.6-3.4 x 103/uL Monocyte % 5.3 0-12 % Monocytes 0.50 0.0-1.0 x 103/uL Eosinophil % 2.2 0-7 % Eosinophils 0.21 0-0.7 x 103/uL Basophil % 0.6 0-2 % Basophils 0.06 0.0-0.1 x 103/uL Urinalysis :12:00 Result Normal Range Units Site Unknown Urine Color Yellow Yellow Urine Appearance Clear Clear Urine Glucose Negative Negative Urine Bilirubin Negative Negative Urine Ketones Negative Negative Urine Specific Waldron 1.010 1.010-1.020 Urine PH L 5.0 5.5-7.5 Urine Protein AB 1+ Negative Urine Urobilinogen 0.2 0.2-1.0 Urine Nitrites Negative Negative Urine Blood Negative Negative Urine Leukocytes Negative Negative Urine WBC's None Seen Urine RBC's None Seen Urine Bacteria Trace Squamous Epi's 1+ Chemistry Group :25:00 Result Normal Range Units Glucose 98 70-99 mg/dl BUN 13 7-26 mg/dl Creatinine 1.1 0.6-1.3 mg/dl Sodium 140 136-145 mmol/L Potassium 3.6 3.5-5.1 mmol/L Chloride 105 98-107 mmol/L CO2 25 22-29 mmol/L BUN/Creatinine Ratio 12 7-25 Ratio Calcium 8.7 8.4-10.2 mg/dl Protein Total L 5.9 6.4-8.3 g/dl Albumin L 3.2 3.5-5.0 g/dl A/G Ratio 1.2 1.2-2.2 Ratio AST 17 5-34 U/L ALT 16 0-55 U/L ALP 67 40-150 U/L Bilirubin Total 0.6 0.2-1.2 mg/dl Osmolality 270 261-280 mOsm/kg Globulin 2.7 2.4-3.5 g/dl Free T4 0.96 0.70-1.48 ng/dl TSH 0.57 0.35-4.94 uIU/mL Reference Lab Group :25:00 EKG See Manual Report Urinalysis :12:00 Result Normal Range Units Site Unknown Urine Color Yellow Yellow Urine Appearance Clear Clear Urine Glucose Negative Negative Urine Bilirubin Negative Negative Urine Ketones Negative Negative Urine Specific Waldron 1.010 1.010-1.020 Urine PH L 5.0 5.5-7.5 Urine Protein AB 1+ Negative Urine Urobilinogen 0.2 0.2-1.0 Urine Nitrites Negative Negative Urine Blood Negative Negative Urine Leukocytes Negative Negative Urine WBC's None Seen Urine RBC's None Seen Urine Bacteria Trace Squamous Epi's 1+ History of procedures No procedures recorded for this patient visit. Functional status Functional Status Finding Observation Time Dexterity Left-handed : Weight Bearing Statu Full :30 Transferring/Ambulat Needs Assistance :30 Bathing Dependent : Dressing Needs Assistance : Eating Independent : Drinking Independent : Toileting Independent : Able to Turn Self in Independent : Stairs Not Done :30 Cane Yes : Wheelchair Yes :30 Cognitive Status Finding Observation Time Level of Consciousne Alert :35 Oriented to Person Yes :[address] Yes :35 Oriented to Time Yes :35 Eyes - LAVELLE Yes :35 Vital signs Type Value Date Respirations 18 :15 Pulse 93 :15 O2 Saturation 95% :15 Systolic Blood Press 106mm/HG :15 Diastolic Blood Pres 74mm/HG :15 Temperature (Fahr) 97.5Degrees :15 Height 68in :30 Weight 126.8LB :50 Social history Type Value Smoking Status CURRENT EVERY DAY SMOKER Treatment Plan Treatment Plan at Follow up with appointments Hospital discharge instructions Diagnosis refusing meals and cares, agitation and aggression Diet Regular Activity Level as tolerated Personal Items Retur Yes Flu Vaccine Given Comment: unable to be determined Pneumonia Vaccine Gi Comment: unable to be determined Follow up with Dr. 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 in [place] on 07/21/15 at 12:30 pm in [place].
--- OUTSIDE RECORDS SUMMARY | 2018-05-27 19:06 | XMS REPORT | Referral Summary ---
Author Author [facility] Organization [facility] Address Unknown Phone Unavailable Care Team Providers Care Gear Grinder Name Role Phone Lele Patricia PCP Encounter Date(s): 01/18/15 - 01/18/15 [facility] [address] [place], [place] [address] Discharge Disposition: 01-Home or Self Care Attending Physician: Vinnie Monterroso MD Admitting Physician: Vinnie Monterroso MD Referring Physician: Lele Patricia MD Vital Signs No data available for this section Problem List Condition Effective Dates Status Health Status Informant ALLERGIES(Confirmed) Resolved ARTHRITIS(Confirmed) Resolved ASTHMA(Confirmed) Resolved BLOOD Resolved CLOTS(Confirmed) CHICKEN Resolved POX(Confirmed) CHF (congestive Active patient heart failure)(Confirmed) DEPRESSION(Confirmed Resolved ) EAR Resolved INFECTIONS(Confirmed ) EMPHYSEMA(Confirmed) Resolved HEARING Resolved LOSS(Confirmed) HEART Resolved ATTACK(Confirmed) HIGH BLOOD Resolved PRESSURE(Confirmed) IRRITABLE BOWEL Resolved SYNDROME(Confirmed) PNEUMONIA(Confirmed) Resolved Reflux(Confirmed) Active patient SEIZURES(Confirmed) Resolved SINUS Resolved INFECTIONS(Confirmed ) URINE Resolved INFECTIONS(Confirmed ) Allergies, Adverse Reactions, Alerts No Known Allergies Medications acetic acid 2% otic solution See Instructions, 5 drops Ear-Right bid 7 days and prn for drainage/itching., # 30 mL, 0 Refill(s) Start Date: 01/18/15 Status: Ordered Acidophilus 0 Refill(s) Start Date: 11/25/14 Status: Ordered albuterol 2.5MG/3ML, 0 Refill(s) Start Date: 10/14/13 Status: Ordered albuterol 5 mg/mL (0.5%) inhalation solution 2.5 mg 0.5 mL, Inhalation, q4hr, as needed for wheezing, # 20 mL, 0 Refill(s) Start Date: 11/25/14 Status: Ordered Aldactone 25 mg oral tablet mg tabs, Oral, BID, 0 Refill(s) Start Date: 11/25/14 Status: Ordered Ativan 0 Refill(s) Start Date: 11/25/14 Status: Ordered Atrovent 21 mcg/inh nasal spray 2 sprays, Nasal, TID, # 30 mL, 3 Refill(s), Pharmacy: [facility] Start Date: 12/27/14 Status: Ordered CeleXA 20 mg oral tablet mg tabs, Oral, Daily, 0 Refill(s) Start Date: 11/25/14 Status: Ordered ciprofloxacin 0.2% otic solution See Instructions, 1 stone q12hr to the left ear., # 14 Each, 0 Refill(s) Start Date: 01/18/15 Status: Ordered fentaNYL 50 mcg/hr, 0 Refill(s) Start Date: 10/14/13 Status: Ordered Keflex 500 mg oral capsule 500 mg 1 caps, Oral, q8hr, # 30 caps, 0 Refill(s) Start Date: 01/10/15 Status: Ordered Lasix 40 mg oral tablet mg tabs, Oral, Daily, 0 Refill(s) Start Date: 11/25/14 Status: Ordered Levaquin 250 mg oral tablet mg tabs, Oral, q24hr, 0 Refill(s) Start Date: 11/25/14 Status: Ordered Lomotil Oral, QID, 0 Refill(s) Start Date: 11/25/14 Status: Ordered loratadine 0 Refill(s) Start Date: 11/25/14 Status: Ordered Lyrica 50 mg oral capsule 1 caps, Oral, TID, 0 Refill(s) Start Date: 10/14/13 Status: Ordered multivitamin Daily, 0 Refill(s) Start Date: 11/25/14 Status: Ordered Vincent 5 mg-325 mg oral tablet 1 tabs, Oral, q4hr, as needed for pain, # 30 tabs, 0 Refill(s) Start Date: 11/26/14 Status: Ordered Vincent 5 mg-325 mg oral tablet See Instructions, as needed for pain, 1-2 tabs Oral q6hr, # 40 tabs, 0 Refill(s) Start Date: 01/18/15 Status: Ordered ofloxacin 0.3% otic solution 5 drops, Ear-Left, BID, # 10 mL, 0 Refill(s), Pharmacy: [facility] Start Date: 12/27/14 Stop Date: 01/06/15 Status: Ordered omeprazole 20 mg oral delayed release tablet tabs, Oral, Daily, 0 Refill(s) Start Date: 10/14/13 Status: Ordered potassium chloride 99 mg oral tablet 99 mg 1 tabs, Oral, Daily, # 100 tabs, 0 Refill(s) Start Date: 11/25/14 Status: Ordered Pristiq 50 mg oral tablet, extended release tabs, Oral, Daily, 0 Refill(s) Start Date: 10/14/13 Status: Ordered traZODone 50 mg oral tablet tabs, Oral, TID, 0 Refill(s) Start Date: 10/14/13 Status: Ordered Tylenol Caplet 500 mg, Oral, 0 Refill(s) Start Date: 10/14/13 Status: Ordered Tylenol with Codeine #3 tabs, Oral, q6hr, 0 Refill(s) Start Date: 11/25/14 Status: Ordered Ventolin HFA 90 mcg/inh inhalation aerosol puffs, Inhalation, QID, 0 Refill(s) Start Date: 11/25/14 Status: Ordered Vitamin C 500 mg oral tablet mg tabs, Oral, Daily, 0 Refill(s) Start Date: 11/25/14 Status: Ordered Welchol Oral, 0 Refill(s) Start Date: 11/25/14 Status: Ordered Results No data available for this section Immunizations No data available for this section Procedures Procedure Date Related Diagnosis Body Site Needle electromyography; cranial nerve 01/10/15 supplied muscle(s), unilateral Tissue grafts, other (eg, paratenon, fat, 01/10/15 dermis) Tympanoplasty with mastoidectomy (including 01/10/15 canalplasty, middle ear surgery, tympanic membrane repair); with intact or reconstructed wall, without ossicular chain reconstruction.. Nasal endoscopy, diagnostic, unilateral or 11/26/14 bilateral (separate procedure) Nasal/sinus endoscopy, surgical, with 11/26/14 maxillary antrostomy; with removal of tissue from maxillary sinus Nasal/sinus endoscopy, surgical, with 11/26/14 sphenoidotomy; with removal of tissue from the sphenoid sinus Nasal/sinus endoscopy, surgical; with 11/26/14 ethmoidectomy, total (anterior and posterior) Stereotactic computer-assisted (navigational) 11/26/14 procedure; cranial, extradural (List separately in addition to code for primary procedure) Hernia Hip replacement Prostate Stent1 Tonsillectomy Vasectomy 1Heart Social History Social History Type Response Smoking Status Current every day smoker; Type: Cigarettes; Tobacco use per day: 1 Pack; Started at age: 17 Assessment and Plan No data available for this section
--- OUTSIDE RECORDS SUMMARY | 2018-05-27 19:06 | XMS REPORT ---
Author Author [facility] Medical Staff Organization [facility] Address [address] [place], [place] [address] Phone [phone] Care Team Providers Care Pensionholder Information Clerk Name Role Phone JUANITO PHELAN, KRISTIN PP [phone] Summary purpose CCDA Sent to [facility] Chief Complaint and Reason for Visit No [...] Relevant diagnostic tests and/or laboratory data RESULTS Urinalysis [id number]:29:00 Result Normal Range Units Site Unknown Urine Color Yellow Yellow Urine Appearance Clear Clear Urine Glucose Negative Negative Urine Bilirubin Negative Negative Urine Ketones Negative Negative Urine Specific Dickens 1.010 1.010-1.020 Urine PH 6.0 5.5-7.5 Urine Protein Negative Negative Urine Urobilinogen 0.2 0.2-1.0 Urine Nitrites Negative Negative Urine Blood Negative Negative Urine Leukocytes Negative Negative Urine WBC's None Seen Urine RBC's None Seen Urinalysis [id number]:29:00 Result Normal Range Units Site Unknown Urine Color Yellow Yellow Urine Appearance Clear Clear Urine Glucose Negative Negative Urine Bilirubin Negative Negative Urine Ketones Negative Negative Urine Specific Dickens 1.010 1.010-1.020 Urine PH 6.0 5.5-7.5 Urine Protein Negative Negative Urine Urobilinogen 0.2 0.2-1.0 Urine Nitrites Negative Negative Urine Blood Negative Negative Urine Leukocytes Negative Negative Urine WBC's None Seen Urine RBC's None Seen Microalbumin 10 <=10 mg/dl Urine Creatinine 50 mg/dl Microalbumin/Creatinine H 30 <30 mg/g History of procedures Procedure Code Code Type Description Date Performed Performing Physician 39353 CPT-4 URINALYSIS, AUTO W/SCOPE 02-28-2016 [place] [id number] CPT-4 ASSAY OF URINE CREATININE 02-28-2016 [place] [id number] CPT-4 MICROALBUMIN, SEMIQUANT 02-28-2016 GRACE MARTINEZ JR Functional status No functional or cognitive status [...]
--- OUTSIDE RECORDS SUMMARY | 2018-05-27 19:06 | XMS REPORT | Referral Summary ---
Author Author [facility] Organization [facility] Address Unknown Phone Unavailable Care Team Providers Care Flat Examiner Name Role Phone Lele Patricia PCP Encounter [facility] [id number] Date(s): 12/01/14 - 12/01/14 [facility] [address] [place], [place] [address] Discharge Diagnosis: Other chronic sinusitis Discharge Diagnosis: Headache Discharge Diagnosis: Perforation of left tympanic membrane Discharge Diagnosis: Nasal congestion Discharge Disposition: 01-Home or Self Care Attending Physician: Vinnie Monterroso MD Admitting Physician: Vinnie Monterroso MD Vital Signs No data available for [...] TID, # 30 mL, 3 Refill(s), Pharmacy: [facility] Start Date: 12/27/14 Status: Ordered CeleXA [...] 0 Refill(s) Start Date: 11/25/14 Status: Ordered Mullen 5 mg-325 mg oral tablet 1 tabs, Oral, q4hr, as needed for pain, # 30 tabs, 0 Refill(s) Start Date: 11/26/14 Status: Ordered Mullen 5 mg-325 mg oral tablet See Instructions, as needed for pain, 1-2 tabs Oral q6hr, # 40 tabs, 0 Refill(s) Start Date: 01/18/15 Status: Ordered ofloxacin 0.3% otic solution 5 drops, Ear-Left, BID, # 10 mL, 0 Refill(s), Pharmacy: [facility] Start Date: 12/27/14 Stop Date: 01/06/15 [...] or reconstructed wall, without ossicular chain reconstruction.. Nasal/sinus endoscopy, surgical; with biopsy, 12/01/14 polypectomy or debridement (separate procedure).. Nasal endoscopy, diagnostic, unilateral or 11/26/14 bilateral [...] Started at age: 17 Assessment and Plan Extracted from: Title: Office Visit Note Author: Vinnie Monterroso MD Date: 12/01/14 Assessment/Plan 1.Perforation of left tympanic membrane 2.Other chronic sinusitis Plan I counseled the patient regarding management and sinus irrigation. Return to clinic in one month. At that time the timing of ear surgery will be discussed. 3.Headache 4.Nasal congestion
--- OUTSIDE RECORDS SUMMARY | 2018-05-27 19:06 | XMS REPORT ---
Author Author [facility] Medical Staff Organization [facility] Address [address] [place], [place] [address] Phone [phone] Care Team Providers Care Stereo Compiler Name Role Phone JUANITO PHELAN, KRISTIN PP [phone] Summary purpose CCDA Sent to [facility] Chief Complaint and Reason for Visit Admit Diagnosis 1 PRE-OP EXAMINATION, UNSP Problem list No authorized problems tracked for [...] Relevant diagnostic tests and/or laboratory data RESULTS Reference Lab Group [id number]:00 EKG See Manual Report History of procedures Procedure Code Code Type Description Date Performed Performing Physician [id number] CPT-4 ELECTROCARDIOGRAM TRACING 11-16-2014 KRISTIN SOLOMNO Functional status No functional or cognitive status [...]
--- OUTSIDE RECORDS SUMMARY | 2018-05-27 19:06 | XMS REPORT | Referral Summary ---
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 Discharge Disposition: 03-Custodial Facility Attending Physician: Vinnie Monterroso MD Admitting Physician: Vinnie Monterroso MD Vital Signs Most recent to 1 oldest [Reference Range]: Temperature Temporal 36.6 degC Artery [36.3-37.8 (01/10/15 9:51 AM) degC] Peripheral Pulse 92 bpm Rate [60-100 bpm] (01/10/15 9:51 AM) Respiratory Rate 18 br/min [14-20 br/min] (01/10/15 9:51 AM) Blood Pressure 120/77 mmHg [90-140/60-90 mmHg] (01/10/15 9:51 AM) SpO2 92 % (01/10/15 9:51 AM) Problem List Condition Effective Dates Status Health [...] Adverse Reactions, Alerts No Known Allergies Medications Acidophilus 0 Refill(s) Start Date: 11/25/14 Status: [...] TID, # 30 mL, 3 Refill(s), Pharmacy: [facility] Start Date: 12/27/14 Status: Ordered CeleXA 20 mg oral tablet mg tabs, Oral, Daily, 0 Refill(s) Start Date: 11/25/14 Status: Ordered fentaNYL 50 mcg/hr, 0 Refill(s) [...] 0 Refill(s) Start Date: 11/25/14 Status: Ordered [place] 5 mg-325 mg oral tablet See Instructions, as needed for pain, 1-2 tabs Oral q6hr, # 40 tabs, 0 Refill(s) Start Date: 01/10/15 Status: Ordered [place] 5 mg-325 mg oral tablet 1 tabs, Oral, q4hr, as needed for pain, # 30 tabs, 0 Refill(s) Start Date: 11/26/14 Status: Ordered ofloxacin 0.3% otic solution 5 drops, Ear-Left, BID, # 10 mL, 0 Refill(s), Pharmacy: [facility] Start Date: 12/27/14 Stop Date: 01/06/15 [...] Procedures Procedure Date Related Diagnosis Body Site Nasal endoscopy, diagnostic, unilateral or 11/26/14 bilateral (separate procedure) Nasal/sinus endoscopy, surgical, with 11/26/14 maxillary antrostomy; with removal of tissue from maxillary sinus Nasal/sinus endoscopy, surgical, with 11/26/14 sphenoidotomy; with removal of tissue from the sphenoid sinus Nasal/sinus endoscopy, surgical; with 9/18/15 ethmoidectomy, total (anterior and posterior) Stereotactic computer-assisted (navigational) 11/26/14 procedure; cranial, extradural (List separately in addition to code for primary procedure) Hernia Hip replacement Prostate Stent1 Tonsillectomy Vasectomy 1Heart Social History Social History Type Response Smoking Status Current every day smoker; Type: Cigarettes; Tobacco use per day: 1 Pack; Started at age: 17 Assessment and Plan Extracted from: Title: Ambulatory Patient Education Author: Molly Becerril RN Date: 01/10/15 [facility] [phone] Vinnie Monterroso MD FACS; 1946 [employer] [place] [facility], [facility], [address] Post Operative Instructions: Return to see Dr. Monterroso in one week. Activities Ambulate_X_ Unrestricted __ On Crutches as tolerated Yes or No - Weight Bearing Exercise_X_ None__ Light__ UnrestrictedOther: 2 weeks Do not strain or lift more than _ lbs. for _ weeks. Diet __ Liquids (Jell-O, soups, etc., if you are nauseated) _X_ Begin with liquids and light foods then progress to regular diet. __ Regular diet __ No alcoholic beverages for 24 hours or while taking pain medication. Personal hygiene __X Bath __ Shower after __ hours__ Sponge Bath__ [facility]s [facility] Home care __ Remove dressing in ___hours__ Change dressing as necessary. __ Keep dressing clean and dry.__ Do not change dressing until you see your doctor. __ Elevate affected area above level of your heart.__ Apply ice to area for __ _ hours _X_ Avoid blowing nose _X_ Keep water out of ears __ Wear sling as directed.__ Remove drain in ___ hours _X_ Other: Change the cotton ball when it gets saturated. Remove dressing in 24 hours. Keep all water out of ears. Do not put anything else or take anything out of ear. If any problems occur or if you have any further questions, please contact your physician. In an emergency, call [phone] ([phone]), if you cannot reach your physician. If you find that you cannot contact your physician, but feel that your signs and symptoms warrant a physician s attention, go to an Emergency room which is the closest to you. Activities:Call your surgeon promptly if you have: __ Take Tylenol/Advil as needed for discomfort _X_ If fever over _ 102.5 F__ _X_ Prescription given for discomfort. Use as directed.__ Pain not relieved by pain medication _X_ Prescription given for antibiotic. Follow instructions__ Bleeding or unexpected drainage from on label. Continue taking until medication is gone. incision. __ Resume routine medications.__ Extreme redness or swelling around incision. Other: __ Inability to urinate by: _X_ Next dose of pain medicine may be given at __X_ Persistent nausea and vomiting. (Take with food to prevent stomach upset.)__ Ear drainage more than _ Days __ Stool softener__ Cough develops or difficulty breathing. Do NOT drive or operate hazardous machinery for 24 hours or while taking pain medication. Do not sign any important documents or make important decisions for 24 hours following surgery. When taking pain medicine, be careful as you walk or climb stairs as dizziness is not unusual. Check temperature every four hours during the day for two days. Emergency Medicine Mastoiditis Mastoiditis is an infection that has spread from the middle ear to a bony area ( the mastoid air cells) behind the middle ear. It is an uncommon complication of a middle ear infection. It occurs most often in young children. Treatment with the right antibiotics (medications that are used to treat bacteria germs) is generally effective. With the right treatment, there is a very high chance of full recovery. SYMPTOMS Some common symptoms of mastoiditis include: Pain, swelling, redness, warmth, or a tender mass of the bone behind the ear. Fever. Fussiness and irritability. Redness and swelling of the ear lobe or ear. Ear drainage. Headache. DIAGNOSIS Your caregiver will make the diagnosis based on an exam and on questions about what you or your child has been feeling. Other tests that may be done include: Blood work. Blood cultures or cultures of ear drainage. X-rays. If you or your child has symptoms that suggest more serious problems, additional tests and/or specialized x-rays may be done. These could include: CT (CAT) scans. Magnetic Resonance Imaging (MRI). TREATMENT Treatment will be based on how serious the infection is and what will be expected to give the best outcome. The treatment required may be: Hospitalization and antibiotics given through a vein. An operation (myringotomy) is sometimes done to relieve the pressure from the middle ear. This is a surgical procedure where a small hole is cut into the ear drum. A small tube is then placed to keep the hole open and draining. The tubes usually fall out on their own after 6 to 12 months. In rare cases, if the above treatments do not work, more surgery may be necessary. This is called a mastoidectomy. RISKS AND COMPLICATIONS These are rare if proper treatment is started early. These can include: Facial paralysis Infection and possible destruction of the mastoid bone. Spread of infection to the neck. Hearing loss which can be partial or complete on the side of the infection. Infection spread to the brain. Clots or blockage of blood vessels in the neck or brain. HOME CARE INSTRUCTIONS Take prescribed antibiotics and other medications as directed by your caregiver. Follow-up with an exam by an ENT (Ear, Nose, and Throat) specialist if recommended. A follow-up hearing test (audiogram) may be recommended. SEEK MEDICAL CARE IF: You develop recurrent fevers of 100 F (37.8 C) or higher. You develop new headache, ear, or facial pain that had not happened before. You feel that there has been loss of hearing. SEEK IMMEDIATE MEDICAL CARE IF: You develop fevers of 102 F (38.9 C). You develop severe headache, ear, or facial pain. You experience sudden hearing loss. You develop repeated episodes of vomiting. You develop weakness or drooping of one side of your face. You experience weakness of one arm, one leg, or on one side of your body. You develop sudden problems with speech and/or vision. MAKE SURE YOU: Understand these instructions. Will watch your condition. Will get help right away if you are not doing well or get worse. Document Released: 03/27/2007 Document Revised: 05/19/2012 Document Reviewed: Exit[employer] Patient Information 2015 [email or web address]. This information is not intended to replace advice given to you by your health care provider. Make sure you discuss any questions you have with your health care provider. No follow up information was provided.
--- OUTSIDE RECORDS SUMMARY | 2018-05-27 19:07 | XMS REPORT ---
Author Author Marco Oh Organization [facility] Address [address] [facility] [address] [place], [place] [id number] Care Team Providers Care Computer Operations Specialist Name Role Phone Marco Oh PCP Unavailable Allergies and Adverse Reactions Not available. Plan of Treatment Not available. Medications Not available. Problem List Not available. Vital Signs Date Time BP-Sys(mm[Hg] BP-Helen(mm[Hg]) HR(bpm) RR(rpm) Temp WT HT HC BMI BSA BMI Percentile O2 Sat(%) 05/19/2015 10:15:00 AM 136 lbs 68 in 20.68 kg/m2 1.72 m2 Social History Not available. History of Procedures Date Ordered Description Order Status 05/19/2015 12:00 AM ASSAY OF PSA TOTAL Reviewed Results Summary Not available. History Of Immunizations Not available. History of Past Illness Name Date of Onset Comments Screening for prostate cancer May 19 2015 10:41AM Benign non-nodular prostatic hyperplasia, presence of lower urinary tract symptoms unspecified May 19 2015 10:41AM Payers Insurance Name Company Name Plan Name Plan Number Policy Number Policy Group Number Start Date Medicare Part B Medicare [employer] [place] [id number] N/A BCBS [facility] [id number] N/A History of Encounters Visit Date Visit Type Provider 05/19/2015 Office visit Marco Oh MD 08/04/2010 Hospital Evie Mccoy MD 07/10/2010 Hospital Evie Mccoy MD 11/21/2009 Laboratory Noam Austin MD
--- OUTSIDE RECORDS SUMMARY | 2018-05-27 19:07 | XMS REPORT | Referral Summary ---
Author Author [facility] Organization [facility] Address Unknown Phone Unavailable Care Team Providers Care Credit Department Manager Name Role Phone Lele Patricia PCP Encounter Date(s): 10/27/14 - 10/27/14 [facility] [address] [place], [place] [address] Discharge Diagnosis: Sinus pressure Discharge Diagnosis: Headache Discharge Diagnosis: Chronic sinusitis Discharge Diagnosis: Tympanic membrane perforation Discharge Disposition: 01-Home or Self Care Attending [...] TID, # 30 mL, 3 Refill(s), Pharmacy: [facility] Start Date: 12/27/14 Status: Ordered CeleXA [...] 0 Refill(s) Start Date: 11/25/14 Status: Ordered [place] 5 mg-325 mg oral tablet 1 tabs, Oral, q4hr, as needed for pain, # 30 tabs, 0 Refill(s) Start Date: 11/26/14 Status: Ordered [place] 5 mg-325 mg oral tablet See Instructions, as needed for pain, 1-2 tabs Oral q6hr, # 40 tabs, 0 Refill(s) Start Date: 01/18/15 Status: Ordered ofloxacin 0.3% otic solution 5 drops, Ear-Left, BID, # 10 mL, 0 Refill(s), Pharmacy: [facility] Start Date: 12/27/14 Stop Date: 01/06/15 [...] in addition to code for primary procedure) Nasal endoscopy, diagnostic, unilateral or 10/27/14 bilateral (separate procedure).. Hernia Hip replacement Prostate Stent1 Tonsillectomy Vasectomy 1Heart Social History Social History Type Response Smoking Status Current every day smoker; Type: Cigarettes; Tobacco use per day: 1 Pack; Started at age: 17 Assessment and Plan Extracted from: Title: Office Visit Note Author: Vinnie Monterroso MD Date: 10/27/14 Assessment/Plan 1.Tympanic membrane perforation I counseled the patient that he needs a CT scan of his sinuses to further evaluate his sinuses prior to a left tympanoplasty. 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 A detailed discussion of the risks, benefits, and limitations of the procedure was performed with the patient. The patient had the opportunity to ask questions and appeared to understand the pertinent issues. A CT was obtained and shows partial opacification of the lateral portion of the left sphenoid sinus. I placed the patient on antibiotics. I will review the scan with radiology. Surgical drainage of the lesion was discussed with the patient, he will be contacted. A detailed discussion of the risks, benefits, and limitations of the procedure was performed with the patient. The patient had the opportunity to ask questions and appeared to understand the pertinent issues. 2.Headache 3.Sinus pressure Chronic sinusitis Ordered: CT Sinus w/o Contrast Orders: sulfamethoxazole-trimethoprim, 1 tabs, Oral, BID, X 20 days, # 40 tabs , 0 Refill(s)
--- OUTSIDE RECORDS SUMMARY | 2018-05-27 19:07 | XMS REPORT | Referral Summary ---
Author Author [facility] Organization [facility] Address Unknown Phone Unavailable Care Team Providers Care Acid Cleaner Name Role Phone Lele Patricia PCP Encounter VC Date(s): 11/26/14 - 11/26/14 [facility] [address] [place], [place] [address] Discharge Diagnosis: Chronic pansinusitis Discharge Disposition: 01-Home or Self Care Attending Physician: Vinnie Monterroso MD Admitting Physician: Vinnie Monterroso MD Vital Signs Most recent to 1 oldest [Reference Range]: Temperature Temporal 36.6 degC Artery [36.3-37.8 (11/26/14 8:06 AM) degC] Peripheral Pulse 83 bpm Rate [60-100 bpm] (11/26/14 8:06 AM) Respiratory Rate 16 br/min [14-20 br/min] (11/26/14 8:06 AM) Blood Pressure 107/75 mmHg [90-140/60-90 mmHg] (11/26/14 8:06 AM) SpO2 92 % (11/26/14 8:06 AM) Problem List Condition Effective Dates Status [...] TID, # 30 mL, 3 Refill(s), Pharmacy: [facility] Start Date: 12/27/14 Status: Ordered CeleXA [...] 0 Refill(s) Start Date: 11/25/14 Status: Ordered [place] 5 mg-325 mg oral tablet 1 tabs, Oral, q4hr, as needed for pain, # 30 tabs, 0 Refill(s) Start Date: 11/26/14 Status: Ordered [place] 5 mg-325 mg oral tablet See Instructions, as needed for pain, 1-2 tabs Oral q6hr, # 40 tabs, 0 Refill(s) Start Date: 01/18/15 Status: Ordered ofloxacin 0.3% otic solution 5 drops, Ear-Left, BID, # 10 mL, 0 Refill(s), Pharmacy: [facility] Start Date: 12/27/14 Stop Date: 01/06/15 [...] Refill(s) Start Date: 11/25/14 Status: Ordered Results Chemistry Most recent to 1 oldest [Reference Range]: Potassium Venous 4.4 mEq/L 1 [3.5-5.1 mEq/L] (11/26/14 8:38 AM) 1Result Comment: This test was performed on a whole blood specimen. The presence or absence of hemolysis cannot be assessed. Hemolysis can falsely elevate potassium levels. Normals are for venous specimens only. Microbiology Reports TEST: Wound Culture and Smear STATUS: Auth (Verified) BODY SITE: Sinus Ethmoid SOURCE: Sinus COLLECTED DATE/TIME: 11/26/14 9:35 AM Wound Culture and Smear Staphylococcus, coagulase negative Small amount Susceptibility not performed ORGANISM:Staphylococcus coagulase negative Immunizations No data available for this section [...] maxillary sinus Nasal/sinus endoscopy, surgical, with 11/26/14 maxillary antrostomy; with removal of tissue from maxillary sinus Nasal/sinus endoscopy, surgical, with 11/26/14 maxillary antrostomy; with removal of tissue from maxillary sinus.. Nasal/sinus endoscopy, surgical, with 11/26/14 sphenoidotomy; with removal of tissue from the sphenoid sinus Nasal/sinus endoscopy, surgical, with 11/26/14 sphenoidotomy; with removal of tissue from the sphenoid sinus Nasal/sinus endoscopy, surgical, with 11/26/14 sphenoidotomy; with removal of tissue from the sphenoid sinus Nasal/sinus endoscopy, surgical; with 11/26/14 ethmoidectomy, total (anterior and posterior) Nasal/sinus endoscopy, surgical; with 11/26/14 ethmoidectomy, total (anterior and posterior) Nasal/sinus endoscopy, surgical; with 11/26/14 ethmoidectomy, total (anterior and posterior) Stereotactic computer-assisted (navigational) 11/26/14 procedure; cranial, extradural (List separately in addition to code for primary procedure) Stereotactic computer-assisted (navigational) 11/26/14 procedure; cranial, extradural (List separately in addition to code for primary procedure) Stereotactic computer-assisted (navigational) 11/26/14 procedure; cranial, extradural (List separately in addition to code for primary procedure).. Hernia Hip replacement Prostate Stent1 Tonsillectomy Vasectomy 1Heart Social History Social History Type Response Smoking Status Current every day smoker; Type: Cigarettes; Tobacco use per day: 1 Pack; Started at age: 17 Assessment and Plan Extracted from: Title: Ambulatory Patient Education Author: Rose Mary Moreau RN Date: [facility] ([email or web address]) [facility] [employer] [phone] Vinnie Monterroso MD FACS; [address] [email or web address] [place], [facility] [address] Post Operative Instructions: RETURN TO SEE DR. MONTERROSO IN ONE WEEK. Activities Ambulate_X_ Unrestricted __ On Crutches as tolerated Yes or No - Weight Bearing Exercise_X_ None__ Light__ UnrestrictedOther: 1 weeks Do not strain or lift more than _ lbs. for _ weeks. Diet __ Liquids (Jell-O, soups, etc., if you are nauseated) _X_ Begin with liquids and light foods then progress to regular diet. __ Regular diet __ No alcoholic beverages for 24 hours or while taking pain medication. Personal hygiene __ Bath __ Shower after __ hours__ Sponge Bath__ Sitz Baths At Home care __ Remove dressing in ___hours_X Change dressing as necessary. __ Keep dressing clean and dry.__ Do not change dressing until you see your doctor. __ Elevate affected area above level of your heart.__ Apply ice to area for __ _ hours _X_ Avoid blowing nose ,1 week__ Keep water out of ears __ Wear sling as directed.__ Remove drain in ___ hours_X_ Other: Use nasal saline spray to nose, 3-4 puffs each nostril 3-4 times a day or as needed for congestion. If any problems occur or if you have any further questions, please contact your physician. In an emergency, call [phone] ([phone]), if you cannot reach your physician. If [...] directed.__ Pain not relieved by pain medication __ Prescription given for antibiotic. Follow instructions__ Bleeding or unexpected drainage from on label. Continue taking until medication is gone. incision. _X_ Resume routine medications.__ Extreme redness or swelling around incision. Other: __ Inability to urinate by: __ Next dose of pain medicine may be [...] hours during the day for two days. Allergy Sinusitis Sinusitis is redness, soreness, and inflammation of the paranasal sinuses. Paranasal sinuses are air pockets within the bones of your face (beneath the eyes, the middle of the forehead, or above the eyes). In healthy paranasal sinuses, mucus is able to drain out, and air is able to circulate through them by way of your nose. However, when your paranasal sinuses are inflamed, mucus and air can become trapped. This can allow bacteria and other germs to grow and cause infection. Sinusitis can develop quickly and last only a short time (acute) or continue over a long period (chronic). Sinusitis that lasts for more than 12 weeks is considered chronic. CAUSES Causes of sinusitis include: Allergies. Structural abnormalities, such as displacement of the cartilage that separates your nostrils (deviated septum), which can decrease the air flow through your nose and sinuses and affect sinus drainage. Functional abnormalities, such as when the small hairs (cilia) that line your sinuses and help remove mucus do not work properly or are not present. SIGNS AND SYMPTOMS Symptoms of acute and chronic sinusitis are the same. The primary symptoms are pain and pressure around the affected sinuses. Other symptoms include: Upper toothache. Earache. Headache. Bad breath. Decreased sense of smell and taste. A cough, which worsens when you are lying flat. Fatigue. Fever. Thick drainage from your nose, which often is green and may contain pus ( purulent). Swelling and warmth over the affected sinuses. DIAGNOSIS Your health care provider will perform a physical exam. During the exam, your health care provider may: Look in your nose for signs of abnormal growths in your nostrils (nasal polyps). Tap over the affected sinus to check for signs of infection. View the inside of your sinuses (endoscopy) using an imaging device that has a light attached (endoscope). If your health care provider suspects that you have chronic sinusitis, one or more of the following tests may be recommended: Allergy tests. Nasal culture. A sample of mucus is taken from your nose, sent to a lab, and screened for bacteria. Nasal cytology. A sample of mucus is taken from your nose and examined by your health care provider to determine if your sinusitis is related to an allergy. TREATMENT Most cases of acute sinusitis are related to a viral infection and will resolve on their own within 10 days. Sometimes medicines are prescribed to help relieve symptoms (pain medicine, decongestants, nasal steroid sprays, or saline sprays) . However, for sinusitis related to a bacterial infection, your health care provider will prescribe antibiotic medicines. These are medicines that will help kill the bacteria causing the infection. Rarely, sinusitis is caused by a fungal infection. In theses cases, your health care provider will prescribe antifungal medicine. For some cases of chronic sinusitis, surgery is needed. Generally, these are cases in which sinusitis recurs more than 3 times per year, despite other treatments. HOME CARE INSTRUCTIONS Drink plenty of water. Water helps thin the mucus so your sinuses can drain more easily. Use a humidifier. Inhale steam 3 to 4 times a day (for example, sit in the bathroom with the shower running). Apply a warm, moist washcloth to your face 3 to 4 times a day, or as directed by your health care provider. Use saline nasal sprays to help moisten and clean your sinuses. Take medicines only as directed by your health care provider. If you were prescribed either an antibiotic or antifungal medicine, finish it all even if you start to feel better. SEEK IMMEDIATE MEDICAL CARE IF: You have increasing pain or severe headaches. You have nausea, vomiting, or drowsiness. You have swelling around your face. You have vision problems. You have a stiff neck. You have difficulty breathing. MAKE SURE YOU: Understand these instructions. Will watch your condition. Will get help right away if you are not doing well or get worse. Document Released: 02/25/2006 Document Revised: 07/12/2014 Document Reviewed: [facility] [place] Patient Information 2015 [facility]. This information is not intended to replace advice given to you by your health care provider. Make sure you discuss any questions you have with your health care provider. Follow Up With: Where: When: Vinnie [facility] [employer] [place]; [address] [place], [place] [id number] Business (1) 12/01/2014 04:30:00 Comments:
--- OUTSIDE RECORDS SUMMARY | 2018-05-27 19:07 | XMS REPORT | Referral Summary ---
Author Author [facility] Organization [facility] Address Unknown Phone Unavailable Care Team Providers Care Plastic Shaper Name Role Phone Lele Patricia PCP Encounter Date(s): 12/27/14 - 12/27/14 [facility] [address] [place], [place] [address] Discharge Diagnosis: Chronic suppurative mastoiditis of left side Discharge Diagnosis: Left chronic otitis media Discharge Diagnosis: Chronic pansinusitis Discharge Diagnosis: Vasomotor rhinitis Discharge Diagnosis: Mixed hearing loss of left ear Discharge Disposition: 01-Home or Self Care Attending [...] Adverse Reactions, Alerts No Known Allergies Medications acetaminophen-codeine #3 tabs, Oral, q6hr, 0 Refill(s) Start Date: 10/14/13 Status: Ordered Acidophilus 0 Refill(s) Start Date: [...] TID, # 30 mL, 3 Refill(s), Pharmacy: [facility] Start Date: 12/27/14 Status: Ordered CeleXA 20 mg oral tablet mg tabs, Oral, Daily, 0 Refill(s) Start Date: 11/25/14 Status: Ordered citalopram 40 mg oral tablet tabs, Oral, Daily, 0 Refill(s) Start Date: 10/14/13 Status: Ordered fentaNYL 50 mcg/hr, 0 Refill(s) Start Date: 10/14/13 Status: Ordered fluticasone 50 mcg inhalation powder Inhalation, BID, 0 Refill(s) Start Date: 10/14/13 Status: Ordered Lasix 40 mg oral tablet mg tabs, Oral, Daily, 0 Refill(s) Start Date: 11/25/14 Status: Ordered Levaquin 250 mg oral tablet mg tabs, Oral, q24hr, 0 Refill(s) Start Date: 11/25/14 Status: Ordered Lomotil Oral, QID, 0 Refill(s) Start Date: 11/25/14 Status: Ordered loratadine 0 Refill(s) Start Date: 11/25/14 Status: Ordered LORazepam 1 mg oral tablet tabs, Oral, TID, 0 Refill(s) Start Date: 10/14/13 Status: Ordered Lyrica 50 mg oral capsule 1 caps, Oral, TID, 0 Refill(s) Start Date: 10/14/13 Status: Ordered multivitamin Daily, 0 Refill(s) Start Date: 11/25/14 Status: Ordered [place] 5 mg-325 mg oral tablet 1 tabs, Oral, q4hr, as needed for pain, # 30 tabs, 0 Refill(s) Start Date: 11/26/14 Status: Ordered ofloxacin Oral, q12hr, 0 Refill(s) Start Date: 11/25/14 Status: Ordered ofloxacin 0.3% otic solution 5 drops, Ear-Left, BID, # 10 mL, 0 Refill(s), Pharmacy: [facility] Start Date: 12/27/14 Stop Date: 01/06/15 Status: Ordered omeprazole 20 mg oral delayed release tablet tabs, Oral, Daily, 0 Refill(s) Start Date: 10/14/13 Status: Ordered Orajel stone, Topical, BID, 0 Refill(s) Start Date: 10/14/13 Status: Ordered [...] recent to 1 oldest [Reference Range]: Potassium Lvl 4.7 mEq/L [3.5-5.2 mEq/L] (12/27/14 3:32 PM) Immunizations No data available for this section Procedures Procedure Date Related Diagnosis Body Site Nasal endoscopy, diagnostic, unilateral or 12/27/14 bilateral (separate procedure).. Nasal endoscopy, diagnostic, unilateral or [...] Visit Note Author: Vinnie Monterroso MD Date: 12/27/14 Assessment/Plan 1.Chronic suppurative mastoiditis of left side Plan I counseled the patient that the sinuses are now stable. I recommend left ear tympanoplasty and mastoidectomy to achieve a dry, safe ear. A detailed discussion of the risks, benefits, and limitations of the procedure was performed with the patient. The patient had the opportunity to ask questions and appeared to understand the pertinent issues. The procedure will be arranged at his convenience. Also, he was placed on Atrovent for his rhinitis. 2.Left chronic otitis media 3.Mixed hearing loss of left ear 4.Chronic pansinusitis 5.Vasomotor rhinitis Pre-procedure lab exam Ordered: Potassium Level Preop cardiovascular exam Ordered: Request for Cardiovascular ECG Orders: ipratropium nasal, 2 sprays, Nasal, TID, # 30 mL, 3 Refill(s), Pharmacy: [facility] ofloxacin otic, 5 drops, Ear-Left, BID, # 10 mL, 0 Refill(s), Pharmacy: [facility]
--- OUTSIDE RECORDS SUMMARY | 2018-05-27 19:07 | XMS REPORT | Referral Summary ---
Author Author [facility] Organization [facility] Address Unknown Phone Unavailable Care Team Providers Care Medicaid Eligibility Specialist Name Role Phone Lele Patricia PCP Encounter VC Date(s): 10/27/14 - 10/27/14 [facility] [address] [place] [address]- Discharge Diagnosis: Eustachian tube dysfunction Discharge Diagnosis: Mixed hearing loss Discharge Disposition: 01-Home or Self Care Attending Physician: Michelle Duque Vital Signs No data available for this [...] TID, # 30 mL, 3 Refill(s), Pharmacy: [facility] Start Date: 12/27/14 Status: Ordered CeleXA [...] 0 Refill(s) Start Date: 11/25/14 Status: Ordered [place] 5 mg-325 mg oral tablet 1 tabs, Oral, q4hr, as needed for pain, # 30 tabs, 0 Refill(s) Start Date: 11/26/14 Status: Ordered [place] 5 mg-325 mg oral tablet See Instructions, as needed for pain, 1-2 tabs Oral q6hr, # 40 tabs, 0 Refill(s) Start Date: 01/18/15 Status: Ordered ofloxacin 0.3% otic solution 5 drops, Ear-Left, BID, # 10 mL, 0 Refill(s), Pharmacy: [facility] Start Date: 12/27/14 Stop Date: 01/06/15 [...]
--- OUTSIDE RECORDS SUMMARY | 2018-05-27 19:07 | XMS REPORT ---
Author Author Curtis Ma Organization [employer] Address Unknown Phone Unavailable Care Team Providers Care Radio Adjuster Name Role Phone uCrtis Ma CP Unavailable Allergies No Known Allergies Problems Problem Type Condition Code Onset Dates Condition Status Problem Fall from non-moving wheelchair, initial encounter W05.0XXA Active Problem Nicotine dependence, cigarettes, uncomplicated F17.210 Active Problem Shortness of breath R06.02 Active Problem Chronic obstructive pulmonary disease with (acute) exacerbation J44.1 Active Problem Chronic obstructive pulmonary disease, unspecified J44.9 Active Problem Allergic rhinitis, unspecified J30.9 Active Problem Colostomy status Z93.3 Active Problem Acquired absence of other specified parts of digestive tract Z90.49 Active Problem Slow transit constipation K59.01 Active Problem Restlessness and agitation R45.1 Active Problem Hypoxemia R09.02 Active Problem Generalized anxiety disorder F41.1 Active Problem Other chronic pain G89.29 Active Problem Major depressive disorder, single episode, unspecified F32.9 Active Problem Anxiety disorder, unspecified F41.9 Active Problem Unspecified abnormalities of gait and mobility R26.9 Active Problem Other reactive arthropathies, unspecified shoulder M02.819 Active Problem Heart failure, unspecified I50.9 Active Problem Essential (primary) hypertension I10 Active Problem Hereditary lymphedema Q82.0 Active Problem Other specified disorders of nose and nasal sinuses J34.89 Active Problem Pain, unspecified R52 Active Problem Gastro-esophageal reflux disease without esophagitis K21.9 Active Medications Medication Code System Code Instructions Start Date End Date Status Dosage Albuterol Sulfate [facility] [address]-90 (2.5 MG/3ML) 0.083% Inhalation Three times a day 3 ml Deep Sea Nasal Drummond [facility] [address]-82 0.65 % Nasally not defined Fentanyl [facility] [address]-91 75 MCG/HR Transdermal 1 patch to skin Lyrica [facility] [address]-59 200 MG Orally Twice a day 1 capsule Lorazepam [facility] [address]-51 1 MG Orally Three times a day 1 tablet Ibuprofen [facility] [address]-30 200 MG Orally every 6 hrs 1 tablet as needed Protonix [facility] [address]-79 40 MG Orally Once a day 1 tablet Cetirizine HCl [facility] [address]-11 10 MG Orally Once a day 1 tablet Furosemide [facility] [address]-80 40 MG Orally Once a day 1 tablet Hydrocodone-Acetaminophen [facility] [address]-65 5-325 MG Orally every 4 hrs 1 tablet as needed Mirtazapine [facility] [address]-54 15 MG Orally Once a day 1.5 tablet before bedtime in the evening Acetaminophen-Codeine #3 [facility] [address]-11 300-30 MG Orally every 6 hrs 1 tablet as needed Nystatin-Triamcinolone [facility] [address]-16 827495-6.1 UNIT/GM Externally Twice a day 1 application to affected area Seroquel [facility] [address]-48 25 MG Orally Once a day 1 tablet Potassium Chloride ER [facility] [address]-22 10 MEQ Orally Twice a day 1 tablet with food Lomotil [facility] [address]-77 2.5-0.025 MG Orally TID 2 tablet as needed Cymbalta [facility] [address]-83 30 MG Orally Twice a day 1 capsule Symbicort [facility] [address]-91 160-4.5 MCG/ACT Inhalation Twice a day 2 puffs Trazodone HCl [facility] [address]-88 100 MG Orally Once a day 1 tablet at bedtime Megace Oral [facility] [address]-36 40 MG/ML Orally Twice a day 1 ml Konsyl [facility] [address]-04 100 % Orally not defined Spironolactone [facility] [address]-79 25 MG Orally Once a day 1 tablet Results No Known Results Summary Purpose [employer] Submission
--- OUTSIDE RECORDS SUMMARY | 2018-05-27 19:08 | XMS REPORT ---
Author Author ELISE GUERRERO [facility] Address [address] [place] [address] Care Team Providers Care Slitter Cut Off Operator Name Role Phone ELISE GUERRERO Unavailable PROBLEMS Type Condition ICD9-CM Code XKX85-DT Code Onset Dates Condition Status SNOMED Code Problem Encounter for dental examination Z01.20 Active [id number] ALLERGIES Substance Reaction Event Type Date Status N.K.D.A. Unknown Non Drug Allergy Dec, Unknown SOCIAL HISTORY No smoking Hx information available PLAN OF CARE VITAL SIGNS Heart Rate 66 bpm 2016-01-04 Blood pressure systolic 125 mmHg 2016-01-04 Blood pressure diastolic 78 mmHg 2016-01-04 MEDICATIONS Medication Instructions Dosage Frequency Start Date End Date Duration Status Potassium Bicarb-Citric Acid 10 MEQ Orally Once a day 1 tablet 24h Active Trazodone HCl 50 MG Orally Once a day 1 tablet at bedtime as needed 24h Active Furosemide 40 MG Orally Once a day 1 tablet 24h Active Quetiapine Fumarate 25 MG Orally Once a day 1 tablet 24h Active Albuterol Active Cetirizine HCl 10 MG Orally Once a day 1 tablet 24h Active Lorazepam 0.5 MG Orally every 6 hrs 1 tablet as needed 6h Active Tylenol Extra Strength 500 MG Orally every 6 hrs 2 tablets as needed 6h Active Fentanyl 12 MCG/HR 1 patch to skin Active Deep Sea Nasal [place] 0.65 % Active Pantoprazole Sodium 40 MG Orally Once a day 1 tablet 24h Active Lyrica 200 MG Orally Twice a day 1 capsule 12h Active Konsyl 100 % Active Duloxetine HCl 30 MG Orally Twice a day 1 capsule 12h Active Ckelsztxjkw-BRXO-Thfziro Prod Active Morphine Sulfate 30 MG Orally every 4 hrs 1 tablet as needed 4h Active Megestrol Acetate 40 MG/ML Orally Twice a day 1 ml 12h Active Gas Relief 80 MG Orally Four times a day 1 tablet after meals and at bedtime as needed 6h Active Symbicort 160-4.5 MCG/ACT Inhalation Twice a day 2 puffs 12h Active Ibuprofen 800 MG Orally Three times a day 1 tablet 8h Active Spironolactone 25 MG Orally Twice a day 1 tablet 12h Active Fluticasone-Sodium Chloride 50-2.7 MCG/ACT-% Active Diclofenac Sodium 3 % Active Lyrica 25 MG Orally Three times a day 2 capsules 8h Active Mucinex 600 MG Orally every 12 hrs 1 tablet as needed 12h Active RESULTS No Results PROCEDURES Procedure Date Ordered Related Diagnosis Body Site LTD ORAL EVALUATION - PROBLEM FOCUS Jan 04, 2016 IMMUNIZATIONS No Known Immunizations
--- OUTSIDE RECORDS SUMMARY | 2018-05-27 19:08 | XMS REPORT ---
Author Author Curtis Ma Organization [employer] Address Unknown Phone Unavailable Care Team Providers Care Registered Nurse Midwife Name Role Phone Curtis Ma CP Unavailable Allergies No Known Allergies Problems Problem Type Condition Code Onset Dates Condition Status Problem Unspecified abnormalities of gait and mobility R26.9 Active Problem Chronic obstructive pulmonary disease, unspecified J44.9 Active Problem Major depressive disorder, single episode, unspecified F32.9 Active Problem Other reactive arthropathies, unspecified shoulder M02.819 Active Problem Anxiety disorder, unspecified F41.9 Active Problem Hereditary lymphedema Q82.0 Active Problem Pain, unspecified R52 Active Problem Otitis externa in other diseases classified elsewhere, unspecified ear H62.40 Active Problem Postsurgical malabsorption, 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2 Active Problem Nausea R11.0 Active Problem Chronic obstructive pulmonary disease with (acute) exacerbation J44.1 Active Problem Allergic rhinitis, unspecified J30.9 Active Problem Contracture of muscle, other site M62.48 Active Problem Slow transit constipation K59.01 Active Problem Acquired absence of other specified parts of digestive tract Z90.49 Active Problem Diarrhea, unspecified R19.7 Active Problem Colostomy status Z93.3 Active Problem Other specified disorders of nose and nasal sinuses J34.89 Active Problem Disorder of the skin and subcutaneous tissue, unspecified L98.9 Active Problem Disease of upper respiratory tract, unspecified J39.9 Active Problem Encounter for removal of sutures Z48.02 Active Problem Shortness of breath R06.02 Active Problem Gastro-esophageal reflux disease without esophagitis K21.9 Active Problem Fall from non-moving wheelchair, initial encounter W05.0XXA Active Medications Medication Code System Code Instructions Start Date End Date Status Dosage Mucinex [facility] [address]-50 600 MG Orally every 12 hrs Oct 17, 2015 1 tablet as needed Results No Known Results Summary Purpose [employer] Submission
--- OUTSIDE RECORDS SUMMARY | 2018-05-27 19:08 | XMS REPORT ---
Author Author [facility] Medical Staff Organization [facility] Address [address] [place], [place] [address] Phone [phone] Care Team Providers Care Hat Cleaner Name Role Phone JUANITO PHELAN, KRISTIN BARRON [phone] Summary purpose CCDA Sent to [facility] Chief Complaint and Reason for Visit No [...] diagnostic tests and/or laboratory data RESULTS CBC [id number]:00 Result Normal Range Units WBC 9.41 4.60-10.20 x 103/uL RBC 4.49 4.04-6.13 x 106/uL Hemoglobin 13.6 12.2-18.1 g/dl Hematocrit 41.5 37.7-53.7 % MCV 92.4 80.0-97.0 FL MCH 30.3 27.0-31.2 pg MCHC 32.8 31.8-35.4 g/dl RDW 13.3 11.6-14.8 % Platelets 211 142-424 x 103/uL MPV 11.0 9.4-12.4 FL Neutrophil % H 80.3 37-80 % Neutrophils H 7.56 2.0-6.9 x 103/uL Lymphocyte % 12.8 10-50 % Lymphocytes 1.20 0.6-3.4 x 103/uL Monocyte % 4.9 0-12 % Monocytes 0.46 0.0-1.0 x 103/uL Eosinophil % 1.6 0-7 % Eosinophils 0.15 0-0.7 x 103/uL Basophil % 0.4 0-2 % Basophils 0.04 0.0-0.1 x 103/uL Manual Diff Not Indicated Chemistry Group :47:00 Result Normal Range Units Glucose 105 65-110 mg/dl BUN 21 7-21 mg/dl Creatinine 1.5 0.7-1.5 mg/dl Sodium 138 137-145 mmol/L Potassium H 5.1 3.6-5.0 mmol/L Chloride 104 98-107 mmol/L CO2 28 22-30 mmol/L BUN/Creatinine Ratio 14.3 7-25 Ratio Calcium 9.3 8.4-10.2 mg/dl Protein Total 7.7 6.3-8.2 g/dl Albumin 4.4 3.5-5.0 g/dl A/G Ratio 1.3 1.2-2.2 Ratio AST 27 15-46 U/L ALT 34 7-56 U/L ALP 120 38-126 U/L Bilirubin Total 0.8 0.2-1.3 mg/dl Osmolality 269 261-280 mOsm/kg Globulin 3.3 2.4-3.5 g/dL Reference Lab Group :47:00 Result Normal Range Units Adenovirus Not Detected Not Detected Result Amended on 2014-02-25 at 16:46:52. Previous status was FR. Adeno2 Not Detected Not Detected Result Amended on 2014-02-25 at 16:46:52. Previous status was FR. Coronavirus 229E Not Detected Not Detected Result Amended on 2014-02-25 at 16:46:52. Previous status was FR. Coronavirus HKU1 Not Detected Not Detected Result Amended on 2014-02-25 at 16:46:52. Previous status was FR. Coronavirus NL63 Not Detected Not Detected Result Amended on 2014-02-25 at 16:46:52. Previous status was FR. Coronavirus OC43 Not Detected Not Detected Result Amended on 2014-02-25 at 16:46:52. Previous status was FR. Human Metapneumovir. Not Detected Not Detected Result Amended on 2014-02-25 at 16:46:52. Previous status was FR. Entero1 Not Detected Not Detected Result Amended on 2014-02-25 at 16:46:52. Previous status was FR. Entero2 Not Detected Not Detected Result Amended on 2014-02-25 at 16:46:52. Previous status was FR. Human Rhinovirus 1 Not Detected Not Detected Result Amended on 2014-02-25 at 16:46:52. Previous status was FR. Human Rhinovirus 2 Not Detected Not Detected Result Amended on 2014-02-25 at 16:46:52. Previous status was FR. Human Rhinovirus 3 Not Detected Not Detected Result Amended on 2014-02-25 at 16:46:52. Previous status was FR. Human Rhinovirus 4 Not Detected Not Detected Result Amended on 2014-02-25 at 16:46:52. Previous status was FR. [id number] Not Detected Not Detected Result Amended on 2014-02-25 at 16:46:52. Previous status was FR. FluA-H1-mccullough Not Detected Not Detected Result Amended on 2014-02-25 at 16:46:52. Previous status was FR. FluA-H3 Not Detected Not Detected Result Amended on 2014-02-25 at 16:46:52. Previous status was FR. FluA-pan1 Not Detected Not Detected Result Amended on 2014-02-25 at 16:46:53. Previous status was FR. FluA-pan2 Not Detected Not Detected Result Amended on 2014-02-25 at 16:46:53. Previous status was FR. Influenza B Not Detected Not Detected Result Amended on 2014-02-25 at 16:46:53. Previous status was FR. Parainfluenza Virus 1 Not Detected Not Detected Result Amended on 2014-02-25 at 16:46:53. Previous status was FR. Parainfluenza Virus 2 Not Detected Not Detected Result Amended on 2014-02-25 at 16:46:53. Previous status was FR. Parainfluenza Virus 3 Not Detected Not Detected Result Amended on 2014-02-25 at 16:46:53. Previous status was FR. Parainfluenza Virus 4 Not Detected Not Detected Result Amended on 2014-02-25 at 16:46:53. Previous status was FR. Respiratory Syncytial Vir Not Detected Not Detected Result Amended on 2014-02-25 at 16:46:53. Previous status was FR. Bordetella pertussis Not Detected Not Detected Result Amended on 2014-02-25 at 16:46:53. Previous status was FR. Chlamydophila pnemon Not Detected Not Detected Result Amended on 2014-02-25 at 16:46:53. Previous status was FR. Mycoplasma pneumoni Not Detected Not Detected Result Amended on 2014-02-25 at 16:46:53. Previous status was FR. History of procedures No procedures recorded for this patient visit. Functional status No functional or cognitive status [...]
--- OUTSIDE RECORDS SUMMARY | 2018-05-27 19:08 | XMS REPORT ---
Author Author [facility] Medical Staff Organization [facility] Address [address] [place], [place] [address] Phone [phone] Care Team Providers Care Machine Bander And Cellophaner Name Role Phone JUANITO PHELAN, KRISTIN BARRON [phone] Summary purpose CCDA Sent to [facility] Chief Complaint and Reason for Visit Admit Diagnosis 1 CHR [employer] NEC Problem list No authorized problems tracked for [...] diagnostic tests and/or laboratory data RESULTS CBC [id number]:47:00 Result Normal Range Units WBC 9.41 4.60-10.20 [...] 103/uL Manual Diff Not Indicated Chemistry Group [id number]:47:00 Result Normal Range Units Glucose 105 65-110 [...] Globulin 3.3 2.4-3.5 g/dL Reference Lab Group [id number]:47:00 Result Normal Range Units Adenovirus Not Detected [...] 2014-02-25 at 16:46:52. Previous status was FR. [id number]-V2-5743 Not Detected Not Detected Result Amended on [...] 2014-02-25 at 16:46:53. Previous status was FR. Gram Positive Bacteria [id number]:47:00 Result Normal Range Units Entero1 Not Detected Not Detected Result Amended on 2014-02-25 at 16:46:52. Previous status was FR. History of procedures Procedure Code Code Type Description Date Performed Performing Physician 74416 CPT-4 COMPLETE CBC W/AUTO DIFF [facility]-4 COMPREHEN METABOLIC PANEL 02-25-[facility] CPT-4 DETECT AGENT NOS DNA AMP 02-25-[facility] CPT-4 RESP VIRUS 03-04 TARGETS 02-25-2014 [facility] [address] CPT-4 CHYLMD PNEUM DNA AMP PROBE 02-25-2014 [email or web address] [address] CPT-4 M.PNEUMON DNA AMP PROBE 02-25-2014 KRISTIN [facility] [address] CPT-4 ROUTINE VENIPUNCTURE 02-25-2014 KRISTIN JUANITO Functional status No functional or cognitive status [...]
[2018-05-27] MEDS ORDERED: NICOTINE 21 MG (NICODERM) PATCH TD ONE (19:30)
[2018-05-27] MEDS ORDERED: methylPREDNISolone 125 MG (Solu-MEDROL) VIAL IVP ONE (19:30)
--- NOTE | 2018-05-27 19:45 | NUR ---
Pt BP 86/26 at this time. Cuff repositioned and reading 86/[address] España notified. Order for additional 1L bolus NS received at this time.
[2018-05-27] MEDS ORDERED: NOREPINEPHRINE 4 MG in NS (IVPB) 250 ML IV SCH (21:00)
--- NOTE | 2018-05-27 21:34 | NUR ---
[facility] and admission to [facility]
--- NOTE | 2018-05-27 22:04 | NUR ---
TRISTAN MESSINA admitted to room CU10-1, with an admitting diagnosis of Pneumonia, COPD with exacerbation, on 05/27/18 from ED via EMS/Stret[facility], accompanied by staff.TRISTAN MESSINA introduced to surroundings, call light, bed controls, phone, TV, temperature control, lights, meal times, smoking policy, visitor policy, side rail policy, bathrooms and showers. Patient Rights given to patient in the handbook. TRISTAN MESSINA verbalizes understanding that [facility] is not responsible for the loss or damage to any personal effects or valuables that are kept in the patients possession during their hospitalization. The following Patient Care Plans were discussed with the patient: Discharge Planning, activity intolerance,pain management, and respiratory distress. TRISTAN MESSINA verbalizes understanding of Interdisciplinary Patient Education. Patient and/or family were informed about the Rapid Response Team and its purpose.
[2018-05-27] MEDS ORDERED: NS IV 1000 ML 1,000 ML ONE (22:17)
[2018-05-27] MEDS: NS IV 1000 ML 1,000 ML IV SCH (22:26)
[2018-05-27] MEDS ORDERED: CATHETER FLUSH 10 ML SYR IV PRN (22:30)
--- NOTE | 2018-05-27 23:00 | NUR ---
Called and spoke Yudi at [facility] [phone] at this time in an attempt to get a copy of patient home med list. Yudi unable to provide list until 0800 the next day d/t list being locked up in admins office.
[2018-05-27 23:30] LABS: BILIRUBIN,URINE NEGATIVE (NEGATIVE); CLARITY,URINE CLEAR; COLOR,URINE YELLOW; GLUCOSE, URINE (UA) NEGATIVE (NEGATIVE); KETONES,URINE NEGATIVE (NEGATIVE); LEUKOCYTE ESTERASE ,URINE 1+ (NEGATIVE); NITRITE,URINE NEGATIVE (NEGATIVE); PH,URINE 5 (5-9); PROTEIN,URINE 1+ (NEGATIVE); UROBILINOGEN,URINE NORMAL (NORMAL)
[2018-05-27 23:40] LABS: BACTERIA,URINE TRACE /HPF; SQUAMOUS EPITHELIAL CELL,UR 0-2 /HPF
[2018-05-28] VITALS (14 sets, daily range): BP systolic 90–143; BP diastolic 51–78
[2018-05-28] MEDS ORDERED: NS IV ONE (00:30)
[2018-05-28] MEDS: NS IV 1000 ML 1,000 ML IV SCH ×4 (00:32→08:43)
--- NOTE | 2018-05-28 00:32 | NUR ---
Non admin fluid bolus, patient had 2L fluid bolus in ED in [facility]
--- NOTE | 2018-05-28 00:33 | NUR ---
Non admin NS@250, just increased the rate on the current NS hanging that was ordered @ 125cc/hr.
[2018-05-28] MEDS: CEFEPIME 1,000 MG/SWFI 10 ML IV PUSH IV SCH ×8 (00:47→20:17)
[2018-05-28 03:37] LABS: BASOPHILS % (AUTO) 0 % (0-10); EOSINOPHILS % (AUTO) 0 % (0-10); HEMATOCRIT 40 % (40-54); LYMPHOCYTES # (AUTO) 0.3 X 10^3 (1.0-4.0); LYMPHOCYTES % (AUTO) 4 % (12-44); MEAN CORPUSCULAR HEMOGLOBIN 28 PG (25-34); MEAN CORPUSCULAR HGB CONC 32 G/DL (32-36); MEAN CORPUSCULAR VOLUME 88 FL (80-99); MEAN PLATELET VOLUME 11.4 FL (7.4-10.4); MONOCYTES % (AUTO) 1 % (0-12); NEUTROPHILS # (AUTO) 6.2 X 10^3 (1.8-7.8); NEUTROPHILS % (AUTO) 95 % (42-75); PLATELET COUNT 185 10^3/uL (130-400); RED CELL DISTRIBUTION WIDTH 15.8 % (10.0-14.5); WHITE BLOOD COUNT 6.6 10^3/uL (4.3-11.0)
[2018-05-28 04:23] LABS: ALANINE AMINOTRANSFERASE 19 U/L (0-55); ALBUMIN 3.6 GM/DL (3.2-4.5); ALKALINE PHOSPHATASE 89 U/L (40-136); BILIRUBIN,TOTAL 0.3 MG/DL (0.1-1.0); BUN/CREATININE RATIO 14; CALCIUM 8.9 MG/DL (8.5-10.1); CARBON DIOXIDE 20 MMOL/L (21-32); CHLORIDE 108 MMOL/L (98-107); CREATININE SERUM 1.06 MG/DL (0.60-1.30); GFR ESTIMATED > 60; GLUCOSE 137 MG/DL (70-105); MAGNESIUM 1.4 MG/DL (1.8-2.4); PHOSPHORUS 4.1 MG/DL (2.3-4.7); SODIUM 137 MMOL/L (135-145); TOTAL PROTEIN 6.6 GM/DL (6.4-8.2)
--- NOTE | 2018-05-28 05:07 | Pulmonary Consultation ---
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 Pt was admitted to ICU with severe sepsis protocol. Influenza is negative. Allergies and Home Medications Allergies Coded Allergies: No Known Drug Allergies (Unverified , 05/27/18) Home Medications Acetaminophen 500 Mg Tablet, 500 MG PO Q6H PRN for PAIN-MILD OR TEMPATURE, ( Reported) Alprazolam 0.5 Mg Tablet, 0.5 MG PO HS, (Reported) Amiodarone HCl 200 Mg Tablet, 200 MG PO Q12H, (Reported) Apixaban 5 Mg Tablet, 5 MG PO BID, (Reported) Citalopram Hydrobromide 20 Mg Tablet, 20 MG PO DAILY, (Reported) Famotidine 20 Mg Tablet, 20 MG PO BID, (Reported) Fluticasone Propionate 16 Gm [place].susp, 2 SPRAYS NS DAILY, (Reported) Gentamicin Sulfate 5 Ml Drops, 3 DROP OT BID, (Reported) INSTILL INTO ITCHING EAR TWICE DAILY X 7 DAYS START DATE 05-26-18 Guaifenesin 400 Mg Tablet, 400 MG PO QID, (Reported) Ibuprofen 400 Mg Tablet, 400 MG PO TID PRN for PAIN-MILD, (Reported) Ipratropium/Albuterol Sulfate 3 Ml Ampul.neb, 3 ML NEB Q6H PRN for SHORTNESS OF BREATH, (Reported) Magnesium Oxide 400 Mg Tablet, 400 MG PO DAILY, (Reported) Megestrol Acetate 400 Mg/10 Ml Oral.susp, 5 ML PO DAILY, (Reported) Morphine Sulfate 30 Mg Tablet.er, 30 MG PO 0600,1400,2200, (Reported) Multivitamin 1 Each Tablet, 1 TAB PO DAILY, (Reported) Nystatin 15 Gm Powder, TOP TID, (Reported) APPLY TO THIGHS AND GROIN UNTIL CLEAR Nystatin/Triamcinolone 15 Gm Oint, TP BID PRN for STOMA, (Reported) Ondansetron HCl 4 Mg Tab, 4 MG PO Q4H PRN for NAUSEA/VOMITING-1ST LINE, ( Reported) Pregabalin 225 Mg Capsule, 225 MG PO TID, (Reported) Quetiapine Fumarate 50 Mg Tablet, 50 MG PO HS, (Reported) Tamsulosin HCl 0.4 Mg Cap, 0.8 MG PO HS, (Reported) TAKES 2 (0.4MG) CAPSULES Tea Tree Oil 1 Ml Oil, 4 DROP EACH EAR BID PRN for EAR, (Reported) Tramadol HCl 50 Mg Tablet, 100 MG PO Q6H PRN for PAIN-MODERATE, (Reported) Zinc Gluconate 30 Mg Tablet, 30 MG PO DAILY, (Reported) [Alcohol/Vinegar] , 4 DROPS EACH EAR PRN PRN for EAR PAIN, (Reported) ALCOHOL/WHITE VINEGAR EQUAL PARTS Past Bbtgxvw-Olefuy-Nnlpxx Hx Past Med/Social Hx: Reviewed Nursing Past Med/Soc Hx Patient Social History Alcohol Use: Denies Use Recreational Drug Use: No Smoking Status: Current Everyday Smoker Type Used: Cigarettes 2nd Hand Smoke Exposure: No Recent Foreign Travel: No Contact w/Someone Who Travel: No Recent Infectious Disease Expo: No Recent Hopitalizations: No Physical Abuse: No Sexual Abuse: No Mistreated: No Fear: No Immunizations Up To Date Date of Pneumonia Vaccine: Dec 09, 2017 Date of Influenza Vaccine: Dec 09, 2017 Seasonal Allergies Seasonal Allergies: No Past Medical History Surgeries: Yes (Colostomy) Respiratory: Yes COPD Cardiac: Yes Irregular Heartbeat Neurological: Yes Multiple Sclerosis Genitourinary: No Gastrointestinal: Yes (Colostomy) Endocrine: No HEENT: No Cancer: No Psychosocial: No Blood Disorders: No Family Medical History FH: CHF (congestive heart failure) 19 FATHER, , Age:70, Onset:60 years & older Review of Systems Time Seen by Provider: 05:31 Constitutional: Fever, Chills, Sweats, Weakness, Malaise, Other Eyes: No: Pain, Vision change, Conjunctivae inflammation, Eyelid inflammation, Other, Redness ENT: Nose congestion; No: Ear pain, Ear discharge, Nose pain, Nose discharge, Mouth pain, Mouth swelling, Throat pain, Throat swelling, Other Respiratory: Cough, Dry, Shortness of breath, SOB with excertion, Wheezing; No : Hemoptysis, Sputum Cardiovascular: No: Chest Pain, Palpitations, Orthopnea, Paroxysmal Noc. Dyspnea, Edema, Lt Headedness, Other Gastrointestinal: No: Nausea, Vomiting, Abdominal Pain, Diarrhea, Constipation , Melena, Hematochezia, Other Sepsis Event Evaluation Height, Weight, BMI Height: 5'8.00" Weight: 138lbs. 6.0oz. 62.087646pm; 21.0 BMI Method:Stated Exam Exam Vital Signs Date Time Temp Pulse Resp B/P (MAP) Pulse Ox O2 Delivery O2 Flow Rate FiO2 05/28/18 04:00 61 12 115/64 (81) 100 Nasal Cannula 3.00 05/28/18 03:55 98.9 05/28/18 03:50 100 Nasal Cannula 3.00 05/28/18 03:00 62 11 128/56 (80) 100 Nasal Cannula 3.00 05/28/18 02:00 62 10 118/60 (79) 99 Nasal Cannula 3.00 05/28/18 01:25 63 99 32 05/28/18 01:00 63 10 90/51 (64) 98 Nasal Cannula 3.00 05/28/18 01:00 63 05/28/18 00:15 96 Nasal Cannula 3.00 05/28/18 00:00 99.0 05/28/18 00:00 61 9 120/69 (86) 98 Nasal Cannula 3.00 05/27/18 23:45 63 12 103/62 (76) 96 Nasal Cannula 3.00 05/27/18 23:30 65 12 100/62 (75) 97 Nasal Cannula 3.00 05/27/18 23:15 68 15 104/62 (76) 90 Nasal Cannula 3.00 05/27/18 23:00 71 16 93/63 (73) 98 Nasal Cannula 3.00 05/27/18 22:55 98 Nasal Cannula 3.00 05/27/18 22:45 73 12 96/60 (72) 96 Nasal Cannula 3.00 05/27/18 22:37 Nasal Cannula 3.00 05/27/18 22:30 73 11 99/61 (74) 96 Nasal Cannula 3.00 05/27/18 22:15 77 10 95/59 (71) 94 Nasal Cannula 3.00 05/27/18 22:10 80 05/27/18 22:05 98.8 79 14 105/62 (76) 94 Nasal Cannula 3.00 05/27/18 21:16 98.4 83 16 95/51 (66) 99 Nasal Cannula 3.00 05/27/18 21:00 83 12 94/54 (67) 98 Nasal Cannula 3.00 05/27/18 20:45 84 16 87/64 (72) 99 05/27/18 20:30 89 16 88/47 (61) 05/27/18 20:15 93 15 97/45 (62) 05/27/18 20:00 99.6 97 15 86/46 (59) 05/27/18 19:45 98 19 86/26 (46) 05/27/18 19:30 98 16 123/56 (78) 05/27/18 19:15 100.7 101 14 126/98 (107) 96 Nasal Cannula 3.00 05/27/18 19:00 100 15 151/80 (103) 05/27/18 18:45 100 13 141/89 (106) 05/27/18 18:30 104 17 162/91 (114) 05/27/18 18:15 96 18 147/71 (96) 05/27/18 18:00 93 15 147/72 (97) 05/27/18 17:45 97 20 164/78 (106) 05/27/18 17:40 95 Nasal Cannula 3.00 95 05/27/18 17:30 98 156/72 (100) 05/27/18 17:25 101.4 95 22 141/82 (101) 82 Room Air I & O 05/28/18 07:00 Intake Total 5060 ml Output Total 1450 ml Balance 3610 ml Height & Weight Height: 5'8.00" Weight: 138lbs. 6.0oz. 62.409956jc; 21.0 BMI Method:Stated General Appearance: Mild Distress, Thin HEENT: PERRL/EOMI, Pharynx Normal, Moist Mucous Membranes Neck: Full Range of Motion, Normal Inspection Respiratory: Chest Non Tender, No Accessory Muscle Use, No Respiratory Distress , Decreased Breath Sounds, Rhonci (mild, bilateral), Wheezing Cardiovascular: Regular Rate, Rhythm, No Edema, Normal Peripheral Pulses, Tachycardia (102) Capillary Refill: Less Than 3 Seconds Extremity: Normal Inspection, Non Tender, No Calf Tenderness, No Pedal Edema, Slow Capillary Refill (3-4 secs) Neurologic/Psychiatric: Alert, Oriented x3, No Motor/Sensory Deficits, Normal Mood/Affect Results Lab Laboratory Tests 05/27/18 17:20 05/28/18 03:15 Assessment/Plan Assessment/Plan Severe Sepsis -Cefepime -Pitts cultures Hypotension -Aggressive IVF Pneumonia -SVns -Oxygen COPD oxygen dependent -Pt uses 3 liters at [facility] -SVNs Lung nodule per CXR -Check CT of chest Chronic coccyx wound -Wound care MS hx and wheel chair bound -From [facility] ANNELISE HOOVER DO May 28, 2018 05:07
[2018-05-28] MEDS ORDERED: ENOXAPARIN 40 MG/0.4 ML (LOVENOX) SYR SC SCH (05:15)
[2018-05-28] MEDS ORDERED: ENOXAPARIN 40 MG/0.4 ML (LOVENOX) SYR ONE (05:26)
[2018-05-28] MEDS: CATHETER FLUSH 10 ML SYR IV SCH ×3 (05:31→21:57)
[2018-05-28] MEDS: morphine INJ 4 MG/ML 1 ML (VIAL/SYRINGE) IVP PRN ×3 (07:05→15:20)
[2018-05-28] MEDS: RT-ALBUTEROL/IPRATROPIUM 3 ML (DUONEB) VIAL INH SCH ×3 (07:30→19:28)
--- NOTE | 2018-05-28 08:23 | Diagnostic Imaging Report ---
INDICATION: Followup pneumonia. TIME OF EXAM: 3:20 AM Correlation is made with prior study from one day earlier. FINDINGS: Left convexity thoracic scoliotic curvature is again seen. Heart size stable. Nodular density right midlung is unchanged. No additional infiltrates or nodules are seen. There is no effusion or pneumothorax. IMPRESSION: Stable chest since one day earlier. Dictated by: Dictated on workstation # [id number]
[2018-05-28] MEDS: PANTOPRAZOLE 40 MG (PROTONIX) TAB PO SCH (08:36)
[2018-05-28] MEDS: NICOTINE 21 MG (NICODERM) PATCH TD SCH (08:36)
--- NOTE | 2018-05-28 09:14 | History & Physical-Hospitalist ---
History of Present Illness HPI/Chief Complaint Chief complaint: Weakness with sepsis. HPI: [facility] 67[facility] [place], who has MS, and wheelchair bound, has a decubitus ulcer who presented to the [place] ER with sepsis and pneumonia considered severe sepsis by the time he arrived to [facility] [place] so placed in the ICU, initiated aggressive IV fluids, and broad spectrum antibiotics, and Dr. Whitley was consulted. Pt is currently reporting a lot of pain so all home medications were restarted. Pt has a colostomy. Overall very irritated that his home pain medication has not been restarted so did that promptly and provided supportive care. Source: patient Exam Limitations: no limitations Date Seen 05/28/18 Time Seen by a Provider: 10:00 Attending Physician Khari Elizabeth MD PCP Feliz Hernandez MD Referring Physician Date of Admission May 27, 2018 at 19:36 Home Medications & Allergies Home Medications Reviewed patient Home Medication Reconciliation performed by pharmacy medication reconciliations digital technician and/or nursing. Patients Allergies have been reviewed. Allergies Allergies Coded Allergies No Known Drug Allergies (Unverified05/27/18) Past Lhwxlgv-Ftkjkk-Ijnutk Hx Past Med/Social Hx: Reviewed Nursing Past Med/Soc Hx, Reviewed and Corrections made Patient Social History Marrital Status: single Employed/Student: retired Alcohol Use: Denies Use Recreational Drug Use: No Smoking Status: Current Everyday Smoker Type Used: Cigarettes 2nd Hand Smoke Exposure: No Recent Foreign Travel: No Contact w/other who traveled: No Recent Hopitalizations: No Recent Infectious Disease Expo: No Immunizations Up To Date Date of Pneumonia Vaccine: Dec 09, 2017 Date of Influenza Vaccine: Dec 09, 2017 Seasonal Allergies Seasonal Allergies: No Past Medical History Respiratory: COPD Cardiac: Irregular Heartbeat Neurological: Multiple Sclerosis History of Blood Disorders: No Family History FH: CHF (congestive heart failure) 19 FATHER, , Age:70, Onset:60 years & older Review of Systems Constitutional: see HPI, dizziness, fever, weakness EENTM: no symptoms reported Respiratory: cough, dyspnea on exertion Cardiovascular: no symptoms reported Gastrointestinal: loss of appetite, nausea Genitourinary: no symptoms reported Musculoskeletal: back pain Skin: no symptoms reported Psychiatric/Neurological: No Symptoms Reported All Other Systems Reviewed Negative Unless Noted: Yes Physical Exam Physical Exam Vital Signs Vital Signs - First Documented 05/27/18 05/27/18 17:25 17:40 Temp 101.4 Pulse 95 Resp 22 B/P (MAP) 141/82 (101) Pulse Ox 82 O2 Delivery Room Air O2 Flow Rate 3.00 FiO2 95 Capillary Refill : Less Than 3 Seconds Height, Weight, BMI Height: 5'8.00" Weight: 132lbs. 0.0oz. 59.172499xs; 21.0 BMI Method:Stated General Appearance: No Apparent Distress, WD/WN, Chronically ill Eyes: Right Eye Normal Inspection, Right Eye PERRL HEENT: PERRL/EOMI, Normal ENT Inspection, Pharynx Normal, Moist Mucous Membranes Neck: Full Range of Motion, Normal Inspection, Non Tender Respiratory: Chest Non Tender, Lungs Clear, Normal Breath Sounds, No Accessory Muscle Use, No Respiratory Distress Cardiovascular: Regular Rate, Rhythm, No Edema, No Gallop, No JVD, No Murmur, Normal Peripheral Pulses Gastrointestinal: Normal Bowel Sounds, No Organomegaly, No Pulsatile Mass, Non Tender, Soft Back: Normal Inspection, No CVA Tenderness, No Vertebral Tenderness Extremity: Normal Capillary Refill, Normal Inspection, Normal Range of Motion ( limited ROM lower extremities), Non Tender, No Calf Tenderness, No Pedal Edema Neurologic/Psychiatric: Alert, Oriented x3, No Motor/Sensory Deficits, Normal Mood/Affect, Motor Weakness (lower extremities) Skin: Normal Color, Warm/Dry Lymphatic: No Adenopathy Results Results/Procedures Labs Laboratory Tests 05/27/18 17:20 05/28/18 03:15 Patient resulted labs reviewed. Assessment/Plan Admission Diagnosis Assessment: Severe Sepsis Hypotension Pneumonia COPD oxygen dependent Lung nodule per CXR Chronic coccyx wound MS hx and wheel chair bound Chronic pain Smoker Colostomy plan: Abx Home meds Pain meds Monitor labs Consult Dr Keyes Admission Status: Inpatient Order (span 2 midnights) Reason for Inpatient Admission: severe sepis with pneumonia and MS Diagnosis/Problems Diagnosis/Problems (1) Right middle lobe pulmonary infiltrate Status: Acute (2) Severe sepsis Status: Acute (3) Multiple sclerosis Status: Chronic (4) Wheelchair dependence Status: Chronic (5) Smoker Status: Chronic (6) Chronic pain Status: Chronic Qualifiers: Chronic pain type: chronic pain syndrome Qualified Codes: G89.4 - Chronic pain syndrome (7) Atrial fibrillation Status: Chronic Qualifiers: Atrial fibrillation type: chronic Qualified Codes: I48.2 - Chronic atrial fibrillation (8) COPD with exacerbation Status: Acute (9) Fever and chills Status: Acute Clinical Quality Measures DVT/VTE Risk/Contraindication: Risk Factor Score Per Nursin RFS Level Per Nursing on Admit: 4+=Very High CORINE LU DO May 28, 2018 09:14
--- NOTE | 2018-05-28 09:50 | NUR ---
PT TRANSFERRED TO [facility] VIA BED W/ PERSONAL BELONGINGS AND STAFF. REPORT GIVEN TO DAIN VERDUZCO, NO QUESTIONS/CONCERNS VOICED. PT C/O HEADACHE, DR LU INFORMED AND WILL SEE PT.
--- NOTE | 2018-05-28 10:00 | NUR ---
Patient transferred to [facility]- per accompanied by ICU staff. Patient and family notified and understand transfer. Personal belongings with patient. Report given to TO THIS RN FROM MEDICAL STAFF ASSISTANT KWASI.
[2018-05-28] MEDS ORDERED: QUET50TA55 PO (10:21)
[2018-05-28] MEDS ORDERED: AMIO200T4 PO (10:21)
[2018-05-28] MEDS ORDERED: MORP-34 PO (10:21)
[2018-05-28] MEDS ORDERED: CITA20TA9 PO (10:21)
[2018-05-28] MEDS ORDERED: TRAM50TA2 PO (10:21)
[2018-05-28] MEDS ORDERED: GENT5DRO30 OT (10:21)
[2018-05-28] MEDS ORDERED: TAMS0.4C98 PO (10:21)
[2018-05-28] MEDS ORDERED: ALPR0.5T7 PO (10:21)
[2018-05-28] MEDS ORDERED: FAMO20TA5 PO (10:21)
[2018-05-28] MEDS ORDERED: APIX5TAB PO (10:21)
[2018-05-28] MEDS ORDERED: PREG225C PO (10:21)
[2018-05-28] MEDS ORDERED: morphine ER 15 MG (MS CONTIN) TAB PO NR (10:30)
[2018-05-28] MEDS ORDERED: PREGABALIN 100 MG (LYRICA) CAPSULE PO NR (10:30)
[2018-05-28] MEDS ORDERED: HOLD METFORMIN - RECEIVED CONTRAST 20 ML VIAL IV SCH (11:00)
[2018-05-28] MEDS ORDERED: IOHEXOL 350 MG/ML 100 ML (OMNIPAQUE 350) VIAL IV ONE (11:00)
[2018-05-28] MEDS ORDERED: [UNRECOGNIZED DRUG - CODE] EACH EAR (11:42)
[2018-05-28] MEDS ORDERED: NYST15PO4 TOP (11:42)
[2018-05-28] MEDS ORDERED: ACET-2267 PO (11:42)
[2018-05-28] MEDS ORDERED: FLUT16SP22 NS (11:42)
[2018-05-28] MEDS ORDERED: GUAI400T71 PO (11:42)
[2018-05-28] MEDS ORDERED: MEGE400O21 PO (11:42)
[2018-05-28] MEDS ORDERED: NSTR15O TP (11:42)
[2018-05-28] MEDS ORDERED: [UNRECOGNIZED DRUG - MIXTURE] EACH EAR (11:42)
[2018-05-28] MEDS ORDERED: MAGN400T39 PO (11:42)
[2018-05-28] MEDS ORDERED: ZINC30TA2 PO (11:42)
[2018-05-28] MEDS ORDERED: IPRA3AMP31 NEB (11:42)
[2018-05-28] MEDS ORDERED: ONDN4T PO (11:42)
[2018-05-28] MEDS ORDERED: MULT1TAB69 PO (11:42)
[2018-05-28] MEDS ORDERED: [UNRECOGNIZED DRUG - CODE] PO (11:42)
--- NOTE | 2018-05-28 11:45 | NUR ---
UPDATED MED REC WITH MAR FROM [facility].
--- NOTE | 2018-05-28 11:54 | Diagnostic Imaging Report ---
PROCEDURE: CT chest with contrast only. TECHNIQUE: Multiple contiguous axial images were obtained through the chest after administration of intravenous contrast. Auto Exposure Controls were utilized during the CT exam to meet ALARA standards for radiation dose reduction. INDICATION: Right middle lobe pneumonia with cough and chest tightness. COMPARISON: Correlation is made with chest radiograph from earlier the same day. FINDINGS: No axillary lymphadenopathy is detected. No definite mediastinal or hilar lymphadenopathy is identified. No pericardial or pleural fluid is identified. The central airways are patent. There are significant emphysematous changes noted throughout both lungs. Minimal linear scarring in the left lower lobe is seen. There is some pleural thickening in the upper right chest laterally with some associated subpleural parenchymal scarring. Upper abdomen is unremarkable apart from multiple cortical renal cysts. IMPRESSION: Severe bullous emphysematous changes bilaterally. There is pleural thickening with subpleural parenchymal scarring in the right upper lobe. No discrete mass or acute infiltrate is identified. Dictated by: Dictated on workstation # [id number]
[2018-05-28] MEDS ORDERED: RT-ALBUTEROL/IPRATROPIUM 3 ML (DUONEB) VIAL IH PRN (12:00)
[2018-05-28] MEDS ORDERED: NON-FORMULARY MEDICATION 1 EA EA (Acetaminophen (Tylenol Extra Strength) 500 MG) PO PRN (12:00)
[2018-05-28] MEDS ORDERED: IBUPROFEN 400 MG PO PRN (12:00)
[2018-05-28] MEDS ORDERED: NON-FORMULARY MEDICATION 1 EA EA (Ondansetron HCl (Zofran) 4 MG) PO PRN (12:00)
[2018-05-28] MEDS ORDERED: VINEGAR EACH EAR PRN (12:00)
[2018-05-28] MEDS ORDERED: TEA TREE OIL EACH EAR PRN (12:00)
[2018-05-28] MEDS ORDERED: ALCOHOL EACH EAR PRN (12:00)
[2018-05-28] MEDS ORDERED: ONDANSETRON 4 MG (ZOFRAN) ORAL DISSOLVE TAB PO PRN (12:45)
[2018-05-28] MEDS ORDERED: PREGABALIN 225 MG PO SCH (13:00)
[2018-05-28] MEDS ORDERED: ACETAMINOPHEN 500 MG TAB (TYLENOL) PO PRN (13:00)
[2018-05-28] MEDS ORDERED: NON-FORMULARY MEDICATION 1 EA EA (Guaifenesin 400 MG) PO SCH (13:00)
--- NOTE | 2018-05-28 13:22 | Consultation-Cardiology ---
HPI-Cardiology Cardiology Consultation Date of Consultation 05/28/18 Date of Admission Time Seen by Provider: 13:16 Indication: CAD HPI 67 years old gentleman with history of coronary artery disease, had a stent done in 2010, DVT and PE and paroxysmal atrial fibrillation. Patient was admitted with fever, generalized weakness, has been having hypotension, shortness of breath and cough. Patient was noted to have pneumonia. He denied any active chest pain. No palpitation. No syncope. Home Medications & Allergies Allergies: Coded Allergies: No Known Drug Allergies (Unverified , 05/27/18) Home Medication List Reviewed: Yes ERK-Acrbot-Datxdm Hx Patient Social History Marital Status: Employed/Student: retired Alcohol Use: Denies Use Recreational Drug Use: No Smoking Status: Current Everyday Smoker Type Used: Cigarettes 2nd Hand Smoke Exposure: No Recent Foreign Travel: No Recent Infectious Disease Expo: No Recent Hopitalizations: No Immunizations Up To Date Date of Pneumonia Vaccine: Dec 09, 2017 Date of Influenza Vaccine: Dec 09, 2017 Past Medical History past medical history as described below Family Medical History Family History: FH: CHF (congestive heart failure) 19 FATHER, , Age:70, Onset:60 years & older Review of Systems Constitutional: see HPI, fever, malaise, weakness EENTM: see HPI Respiratory: see HPI, cough, dyspnea on exertion, phlegm, short of breath Cardiovascular: see HPI; No chest pain, No edema, No Hx of Intervention, No palpitations, No syncope, No vascular heart diseas, No other Gastrointestinal: no symptoms reported, see HPI Genitourinary: no symptoms reported, see HPI Musculoskeletal: no symptoms reported, see HPI Skin: no symptoms reported, see HPI Psychiatric/Neurological: No Symptoms Reported, See HPI Reviewed Test Results Reviewed Test Results Lab Laboratory Tests Test 05/27/18 17:20 05/27/18 17:40 05/27/18 18:00 05/27/18 20:20 Range/Units White Blood Count 11.5 H 4.3-11.0 10^3/uL Red Blood Count 4.67 4.35-5.85 10^6/uL Hemoglobin 13.1 L 13.3-17.7 G/DL Hematocrit 42 40-54 % Mean Corpuscular Volume 89 80-99 FL Mean Corpuscular Hemoglobin 28 25-34 PG Mean Corpuscular Hemoglobin Concent 31 L 32-36 G/DL Red Cell Distribution Width 15.9 H 10.0-14.5 % Platelet Count 266 130-400 10^3/uL Mean Platelet Volume 11.6 H 7.4-10.4 FL Neutrophils (%) (Auto) 86 H 42-75 % Lymphocytes (%) (Auto) 8 L 12-44 % Monocytes (%) (Auto) 5 0-12 % Eosinophils (%) (Auto) 1 0-10 % Basophils (%) (Auto) 0 0-10 % Neutrophils # (Auto) 9.8 H 1.8-7.8 X 10^3 Lymphocytes # (Auto) 0.9 L 1.0-4.0 X 10^3 Monocytes # (Auto) 0.6 0.0-1.0 X 10^3 Eosinophils # (Auto) 0.2 0.0-0.3 10^3/uL Basophils # (Auto) 0.0 0.0-0.1 10^3/uL Neutrophils % (Manual) 79 % Lymphocytes % (Manual) 14 % Monocytes % (Manual) 2 % Eosinophils % (Manual) 0 % Basophils % (Manual) 0 % Band Neutrophils 5 % Blood Morphology Comment NORMAL Prothrombin Time 14.9 H 12.2-14.7 SEC INR Comment 1.2 0.8-1.4 Activated Partial Thromboplast Time 35 24-35 SEC Sodium Level 132 L 135-145 MMOL/L Potassium Level 5.2 H 3.6-5.0 MMOL/L Chloride Level 96 L 98-107 MMOL/L Carbon Dioxide Level 29 21-32 MMOL/L Anion Gap 7 5-14 MMOL/L Blood Urea Nitrogen 14 7-18 MG/DL Creatinine 0.99 0.60-1.30 MG/DL Estimat Glomerular Filtration Rate > 60 BUN/Creatinine Ratio 14 Glucose Level 80 70-105 MG/DL Calcium Level 9.4 8.5-10.1 MG/DL Corrected Calcium 9.5 8.5-10.1 MG/DL Total Bilirubin 0.3 0.1-1.0 MG/DL Aspartate Amino Transf (AST/SGOT) 45 H 5-34 U/L Alanine Aminotransferase (ALT/SGPT) 25 0-55 U/L Alkaline Phosphatase 107 40-136 U/L Total Protein 7.6 6.4-8.2 GM/DL Albumin 3.9 3.2-4.5 GM/DL Blood Gas Puncture Site RT RADIAL Blood Gas Patient Temperature 101.1 Arterial Blood pH 7.40 7.37-7.43 Arterial Blood Partial Pressure CO2 46 H 35-45 MMHG Arterial Blood Partial Pressure O2 46 L 79-93 MMHG Arterial Blood HCO3 29 H 23-27 MMOL/L Arterial Blood Total CO2 29.9 21.0-31.0 MMOL/L Arterial Blood Oxygen Saturation 82 L 94-100 % Arterial Blood Base Excess 3.1 H -2.5-2.5 MMOL/L [place] Test YES-POS Blood Gas Ventilator Setting NO Blood Gas Inspired Oxygen ROOM AIR Lactic Acid Level 1.02 0.50-2.00 MMOL/L Urine Color YELLOW Urine Clarity CLEAR Urine pH 5 5-9 Urine Specific [place] 1.015 L 1.016-1.022 Urine Protein 1+ H NEGATIVE Urine Glucose (UA) NEGATIVE NEGATIVE Urine Ketones NEGATIVE NEGATIVE Urine Nitrite NEGATIVE NEGATIVE Urine Bilirubin NEGATIVE NEGATIVE Urine Urobilinogen NORMAL NORMAL MG/DL Urine Leukocyte Esterase 1+ H NEGATIVE Urine RBC (Auto) NEGATIVE NEGATIVE Urine RBC NONE /HPF Urine WBC 2-5 /HPF Urine Squamous Epithelial Cells 0-2 /HPF Urine Crystals NONE /LPF Urine Bacteria TRACE /HPF Urine Casts NONE /LPF Urine Mucus SMALL H /LPF Urine Culture Indicated NO Test 05/28/18 03:15 Range/Units White Blood Count 6.6 4.3-11.0 10^3/uL Red Blood Count 4.58 4.35-5.85 10^6/uL Hemoglobin 13.0 L 13.3-17.7 G/DL Hematocrit 40 40-54 % Mean Corpuscular Volume 88 80-99 FL Mean Corpuscular Hemoglobin 28 25-34 PG Mean Corpuscular Hemoglobin Concent 32 32-36 G/DL Red Cell Distribution Width 15.8 H 10.0-14.5 % Platelet Count 185 130-400 10^3/uL Mean Platelet Volume 11.4 H 7.4-10.4 FL Neutrophils (%) (Auto) 95 H 42-75 % Lymphocytes (%) (Auto) 4 L 12-44 % Monocytes (%) (Auto) 1 0-12 % Eosinophils (%) (Auto) 0 0-10 % Basophils (%) (Auto) 0 0-10 % Neutrophils # (Auto) 6.2 1.8-7.8 X 10^3 Lymphocytes # (Auto) 0.3 L 1.0-4.0 X 10^3 Monocytes # (Auto) 0.0 0.0-1.0 X 10^3 Eosinophils # (Auto) 0.0 0.0-0.3 10^3/uL Basophils # (Auto) 0.0 0.0-0.1 10^3/uL Sodium Level 137 135-145 MMOL/L Potassium Level 5.0 3.6-5.0 MMOL/L Chloride Level 108 H 98-107 MMOL/L Carbon Dioxide Level 20 L 21-32 MMOL/L Anion Gap 9 5-14 MMOL/L Blood Urea Nitrogen 15 7-18 MG/DL Creatinine 1.06 0.60-1.30 MG/DL Estimat Glomerular Filtration Rate > 60 BUN/Creatinine Ratio 14 Glucose Level 137 H 70-105 MG/DL Calcium Level 8.9 8.5-10.1 MG/DL Corrected Calcium 9.2 8.5-10.1 MG/DL Phosphorus Level 4.1 2.3-4.7 MG/DL Magnesium Level 1.4 L 1.8-2.4 MG/DL Total Bilirubin 0.3 0.1-1.0 MG/DL Aspartate Amino Transf (AST/SGOT) 17 5-34 U/L Alanine Aminotransferase (ALT/SGPT) 19 0-55 U/L Alkaline Phosphatase 89 40-136 U/L Total Protein 6.6 6.4-8.2 GM/DL Albumin 3.6 3.2-4.5 GM/DL Physical Exam Vital Signs Vital Signs - First Documented 05/27/18 05/27/18 17:25 17:40 Temp 101.4 Pulse 95 Resp 22 B/P (MAP) 141/82 (101) Pulse Ox 82 O2 Delivery Room Air O2 Flow Rate 3.00 FiO2 95 Capillary Refill : Less Than 3 Seconds Height, Weight, BMI Height: 5'8.00" Weight: 132lbs. 0.0oz. 59.901291at; 21.0 BMI Method:Stated General Appearance: No Apparent Distress, WD/WN Eyes: Bilateral Eye Normal Inspection, Bilateral Eye PERRL, Bilateral Eye EOMI HEENT: PERRL/EOMI, TMs Normal, Normal ENT Inspection, Pharynx Normal Neck: Full Range of Motion, Normal Inspection, Non Tender, Supple, Carotid Bruit Respiratory: Chest Non Tender, Normal Breath Sounds, No Accessory Muscle Use, No Respiratory Distress, Crackles, Rhonci Cardiovascular: Regular Rate, Rhythm, No Edema, No Gallop, No JVD, No Murmur, Normal Peripheral Pulses Gastrointestinal: Normal Bowel Sounds, No Organomegaly, No Pulsatile Mass, Non Tender, Soft Back: Normal Inspection, No CVA Tenderness, No Vertebral Tenderness Extremity: Normal Capillary Refill, Normal Inspection, Normal Range of Motion, Non Tender, No Calf Tenderness, No Pedal Edema Neurologic/Psychiatric: Alert, Oriented x3, No Motor/Sensory Deficits, Normal Mood/Affect Skin: Normal Color, Warm/Dry Lymphatic: No Adenopathy A/P-Cardiology Admission Diagnosis Sepsis Pneumonia Coronary artery disease Hypotension Assessment/Plan Severe sepsis with hypotension, received IV fluid and blood pressure is better at this time. Receiving antibiotics. Pneumonia, receiving antibiotic, having some shortness of breath and cough. COPD, oxygen dependent, managed by Dr. Whitley Pulmonary nodule noted on chest x-ray, had CT scan of the chest, followed by Dr. Whitley Coronary artery disease, history of stent done in 2010, currently stable, no active chest pain. 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 History of MS, ischemic bowel and colostomy, continue to monitor at this time. No changes are recommended Hypomagnesemia, replace and monitor. I'll try to obtain copy of his records from his primary optics test technician in [place] , Dr. Jo and Dr. Ngo Clinical Quality Measures DVT/VTE Risk/Contraindication: Risk Factor Score Per Nursin RFS Level Per Nursing on Admit: 4+=Very High DORCAS VELIZ MD May 28, 2018 13:22
[2018-05-28] MEDS: AMIODARONE 200 MG (CORDARONE) TAB PO SCH ×2 (13:51→23:37)
[2018-05-28] MEDS: morphine ER 30 MG (MS CONTIN) TAB PO SCH ×2 (15:20→23:36)
[2018-05-28] MEDS: PREGABALIN 75 MG (LYRICA) CAP PO SCH ×2 (15:35→21:56)
[2018-05-28] MEDS: guaiFENesin SYRUP 100 MG/5 ML 10 ML (ROBITUSSIN SF) PO SCH ×2 (18:17→23:37)
--- NOTE | 2018-05-28 18:19 | Wound Care Assessment ---
Wound Care Assessment Date Seen by Provider: May 28, 2018 Time Seen by Provider: 18:00 Chief Complaint Sacral ulcer. HPI The patient is a 67 year old male with debility due to multiple sclerosis and chronic, Stage 4 sacral pressure ulcer. The wound has probed to bone in the past, and MRI is ordered to R/O underlying osteomyelitis. The patient has been admitted with pneumonia. The wound is stable. Iodoform wound packing is ordered. Smoking Status: Current Everyday Smoker Recreational Drug Use: No Alcohol Use: Denies Use Exam Vital Signs Date Time Temp Pulse Resp B/P (MAP) Pulse Ox O2 Delivery O2 Flow Rate FiO2 05/28/18 16:00 Nasal Cannula 2.00 05/28/18 15:55 97.4 05/28/18 15:40 93 18 110/53 (72) 95 05/28/18 01:25 32 Capillary Refill : Less Than 3 Seconds Back: other (Sacral ulcer --- 0.4 x 0.7 x 0.8 cm, base 100% slough, mod. s.s. drainage.) Results Laboratory Tests 05/27/18 20:20: Urine Color YELLOW, Urine Clarity CLEAR, Urine pH 5, Urine Specific Shirley 1.015L, Urine Protein 1+H, Urine Glucose (UA) NEGATIVE, Urine Ketones NEGATIVE, Urine Nitrite NEGATIVE, Urine Bilirubin NEGATIVE, Urine Urobilinogen NORMAL, Urine Leukocyte Esterase 1+H, Urine RBC (Auto) NEGATIVE, Urine RBC NONE, Urine WBC 2-5, Urine Squamous Epithelial Cells 0-2, Urine Crystals NONE, Urine Bacteria TRACE, Urine Casts NONE, Urine Mucus SMALLH, Urine Culture Indicated NO 05/28/18 03:15: White Blood Count 6.6, Red Blood Count 4.58, Hemoglobin 13.0L, Hematocrit 40, Mean Corpuscular Volume 88, Mean Corpuscular Hemoglobin 28, Mean Corpuscular Hemoglobin Concent 32, Red Cell Distribution Width 15.8H, Platelet Count 185, Mean Platelet Volume 11.4H, Neutrophils (%) (Auto) 95H, Lymphocytes (%) (Auto) 4L, Monocytes (%) (Auto) 1, Eosinophils (%) (Auto) 0, Basophils (%) (Auto) 0, Neutrophils # (Auto) 6.2, Lymphocytes # (Auto) 0.3L, Monocytes # (Auto) 0.0, Eosinophils # (Auto) 0.0, Basophils # (Auto) 0.0, Sodium Level 137, Potassium Level 5.0, Chloride Level 108H, Carbon Dioxide Level 20L, Anion Gap 9, Blood Urea Nitrogen 15, Creatinine 1.06, Estimat Glomerular Filtration Rate > 60, BUN/ Creatinine Ratio 14, Glucose Level 137H, Calcium Level 8.9, Corrected Calcium 9.2, Phosphorus Level 4.1, Magnesium Level 1.4L, Total Bilirubin 0.3, Aspartate Amino Transf (AST/SGOT) 17, Alanine Aminotransferase (ALT/SGPT) 19, Alkaline Phosphatase 89, Total Protein 6.6, Albumin 3.6 Microbiology 05/27/18 Blood Culture - Preliminary, Resulted No growth 05/28/18 Gram Stain - Final, Complete 05/28/18 Sputum Culture - Final, Complete Microbiology 05/27/18 Blood Culture - Preliminary, Resulted No growth 05/27/18 Blood Culture - Preliminary, Resulted No growth 05/28/18 Gram Stain - Final, Complete 05/28/18 Sputum Culture - Final, Complete 05/27/18 Influenza Types A,B Antigen (DAVID) - Final, Complete TARAS JOSHI MD May 28, 2018 18:19
[2018-05-28] MEDS ORDERED: NON-FORMULARY MEDICATION 1 EA EA (Famotidine 20 MG) PO SCH (21:00)
[2018-05-28] MEDS ORDERED: NON-FORMULARY MEDICATION 1 EA EA (Quetiapine Fumarate 50 MG) PO SCH (21:00)
--- NOTE | 2018-05-28 21:30 | NUR ---
patient reports to this RN that he forgot to inform Dr. Cabrera of his steel hip replacements when Dr. Cabrera was scheduling for an MRI tomorrow AM (05/29/2018 0800). This RN attempted to call MRI to ask if this would cause an issue with no answer to the phone. Engineering Leader contacted at [phone] to be informed of this, Lofter was able to contact MRI and they left a note for the morning mining engineering technologist about the matter stating to call the RN for this pt if this test will be an issue.
[2018-05-28] MEDS: GENTAMICIN 0.3% OPHTH SOLN 5 ML EACH EAR SCH (21:55)
[2018-05-28] MEDS: QUEtiapine 25 MG (SEROquel) TAB IMMEDIATE RELEASE PO SCH (21:55)
[2018-05-28] MEDS: TAMSULOSIN 0.4 MG (FLOMAX) CAP PO SCH (21:56)
[2018-05-28] MEDS: APIXABAN 5 MG (ELIQUIS) TABLET PO SCH (21:56)
[2018-05-28] MEDS: FAMOTIDINE 20 MG (PEPCID) TABLET PO SCH (21:56)
[2018-05-28] MEDS: ALPRAZolam 0.5 MG (XANAX) TAB PO SCH (21:56)
[2018-05-28] MEDS: MICONAZOLE 2% POWDER (DESENEX AF) 90 GM TOP SCH (21:57)
[2018-05-29] VITALS (8 sets, daily range): BP systolic 72–124; BP diastolic 45–80
[2018-05-29] MEDS ORDERED: CEFEPIME 2,000 MG/SWFI 20 ML IV PUSH IV SCH ×2
[2018-05-29] MEDS: CEFEPIME 1,000 MG/SWFI 10 ML IV PUSH IV SCH ×8 (02:03→21:55)
[2018-05-29 04:44] LABS: BASOPHILS % (AUTO) 0 % (0-10); EOSINOPHILS % (AUTO) 0 % (0-10); HEMATOCRIT 39 % (40-54); HEMOGLOBIN 12.2 G/DL (13.3-17.7); LYMPHOCYTES # (AUTO) 0.4 X 10^3 (1.0-4.0); LYMPHOCYTES % (AUTO) 8 % (12-44); MEAN CORPUSCULAR HEMOGLOBIN 28 PG (25-34); MEAN CORPUSCULAR HGB CONC 32 G/DL (32-36); MEAN CORPUSCULAR VOLUME 89 FL (80-99); MEAN PLATELET VOLUME 11.3 FL (7.4-10.4); MONOCYTES # (AUTO) 0.3 X 10^3 (0.0-1.0); MONOCYTES % (AUTO) 6 % (0-12); NEUTROPHILS # (AUTO) 4.1 X 10^3 (1.8-7.8); NEUTROPHILS % (AUTO) 86 % (42-75); PLATELET COUNT 132 10^3/uL (130-400); RED CELL DISTRIBUTION WIDTH 15.8 % (10.0-14.5); WHITE BLOOD COUNT 4.8 10^3/uL (4.3-11.0)
[2018-05-29 04:54] LABS: BASOPHILS % (AUTO) 0 % (0-10); EOSINOPHILS % (AUTO) 0 % (0-10); HEMATOCRIT 39 % (40-54); HEMOGLOBIN 12.2 G/DL (13.3-17.7); LYMPHOCYTES # (AUTO) 0.4 X 10^3 (1.0-4.0); LYMPHOCYTES % (AUTO) 8 % (12-44); MEAN CORPUSCULAR HEMOGLOBIN 28 PG (25-34); MEAN CORPUSCULAR HGB CONC 32 G/DL (32-36); MEAN CORPUSCULAR VOLUME 89 FL (80-99); MEAN PLATELET VOLUME 11.3 FL (7.4-10.4); MONOCYTES # (AUTO) 0.3 X 10^3 (0.0-1.0); MONOCYTES % (AUTO) 6 % (0-12); NEUTROPHILS # (AUTO) 4.1 X 10^3 (1.8-7.8); NEUTROPHILS % (AUTO) 86 % (42-75); PLATELET COUNT 132 10^3/uL (130-400); RED CELL DISTRIBUTION WIDTH 15.8 % (10.0-14.5); WHITE BLOOD COUNT 4.8 10^3/uL (4.3-11.0)
[2018-05-29 05:04] LABS: ALANINE AMINOTRANSFERASE 15 U/L (0-55); ALBUMIN 3.5 GM/DL (3.2-4.5); ALKALINE PHOSPHATASE 81 U/L (40-136); BILIRUBIN,TOTAL 0.2 MG/DL (0.1-1.0); BUN/CREATININE RATIO 14; CALCIUM 8.8 MG/DL (8.5-10.1); CARBON DIOXIDE 24 MMOL/L (21-32); CHLORIDE 106 MMOL/L (98-107); CREATININE SERUM 1.07 MG/DL (0.60-1.30); GFR ESTIMATED > 60; GLUCOSE 82 MG/DL (70-105); SODIUM 140 MMOL/L (135-145); TOTAL PROTEIN 6.4 GM/DL (6.4-8.2)
[2018-05-29] MEDS: CATHETER FLUSH 10 ML SYR IV SCH ×3 (06:12→22:02)
[2018-05-29] MEDS: MULTIVIT W/MINERALS TAB (THERAGRAN M) PO SCH (06:12)
[2018-05-29] MEDS: morphine ER 30 MG (MS CONTIN) TAB PO SCH ×3 (06:12→22:17)
[2018-05-29] MEDS: RT-ALBUTEROL/IPRATROPIUM 3 ML (DUONEB) VIAL INH SCH ×4 (07:10→22:04)
--- NOTE | 2018-05-29 08:11 | Cardiology Progress Note ---
Subjective Date Seen by Provider: May 29, 2018 Time Seen by Provider: 08:09 Subjective/Events-last exam Patient sitting up in bed. Complaining of bilateral feet pain. Denies any chest pain or increased dyspnea. Focused Exam Lactate Level 05/27/18 18:00: Lactic Acid Level 1.02 Objective-Cardiology Exam Last Set of Vital Signs Vital Signs 05/28/18 05/29/18 05/29/18 01:25 04:00 07:12 Temp 99.7 Pulse 99 Resp 18 B/P (MAP) 106/64 (78) Pulse Ox 95 O2 Delivery Nasal Cannula O2 Flow Rate 3.00 FiO2 32 Capillary Refill : Less Than 3 Seconds I&O Intake and Output 05/29/18 00:00 Intake Total 8180 ml Output Total 5150 ml Balance 3030 ml Intake Oral 670 ml IV Total 7510 ml Output Urine Total 4375 ml Stool Total 775 ml General: Alert, Oriented X3, Cooperative HEENT: Atraumatic, PERRLA Neck: Supple, No JVD, No Thyromegaly Lungs: Other (bilat wheezing) Heart: Regular Rate, Normal S1, Normal S2 Abdomen: Soft, No Tenderness, No Masses Extremities: Other (+ 1 edema BLE) Skin: No Rashes, No Significant Lesion Neuro: Normal Speech Psych/Mental Status: Mental Status NL, Mood NL Results Lab Laboratory Tests 05/29/18 04:20 05/29/18 04:35 A/P-Cardiology Admission Diagnosis Sepsis Pneumonia Coronary artery disease Hypotension Assessment/Plan Severe sepsis with hypotension, received IV fluid and blood pressure is better at this time. Receiving antibiotics. Pneumonia, receiving antibiotic, slowly improving, continue to monitor. COPD, oxygen dependent, managed by Dr. Whitley Pulmonary nodule noted on chest x-ray, had CT scan of the chest, followed by Dr. Whitley Coronary artery disease, history of stent done in 2010, currently stable, no active chest pain. 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 History of MS, ischemic bowel and colostomy, continue to monitor at this time. No changes are recommended Hypomagnesemia, replace and monitor. I'll try to obtain copy of his records from his primary fiberglass auto body repairer in [place] , Dr. Jo and Dr. Ngo Clinical Quality Measures DVT/VTE Risk/Contraindication: Risk Factor Score Per Nursin RFS Level Per Nursing on Admit: 4+=Very High LIZA CASANOVA May 29, 2018 08:11
--- NOTE | 2018-05-29 08:30 | Cardiology Progress Note ---
Subjective Date Seen by Provider: May 29, 2018 Time Seen by Provider: 08:29 Subjective/Events-last exam Patient is in bed, feeling better, no new complaint Review of Systems General: No Chills, No Night Sweats, No Fatigue, No Malaise, No Appetite, No Other HEENT: No Head Aches, No Visual Changes, No Eye Pain, No Ear Pain, No Dysphasia , No Sinus Congestion, No Post Nasal Drip, No Sore Throat, No Other Pulmonary: Dyspnea; No Cough, No Pleuritic Chest Pain, No Other Cardiovascular: No: Chest Pain, Palpitations, Orthopnea, Paroxysmal Noc. Dyspnea, Edema, Lt Headedness, Other Focused Exam Lactate Level 05/27/18 18:00: Lactic Acid Level 1.02 Objective-Cardiology Exam Last Set of Vital Signs Vital Signs 05/28/18 05/29/18 05/29/18 01:25 04:00 07:12 Temp 99.7 Pulse 99 Resp 18 B/P (MAP) 106/64 (78) Pulse Ox 95 O2 Delivery Nasal Cannula O2 Flow Rate 3.00 FiO2 32 Capillary Refill : Less Than 3 Seconds I&O Intake and Output 05/29/18 00:00 Intake Total 8180 ml Output Total 5150 ml Balance 3030 ml Intake Oral 670 ml IV Total 7510 ml Output Urine Total 4375 ml Stool Total 775 ml General: Alert, Oriented X3, Cooperative HEENT: Atraumatic, PERRLA Neck: Supple, No JVD, No Thyromegaly Lungs: Other (bilat wheezing) Heart: Regular Rate, Normal S1, Normal S2 Abdomen: Soft, No Tenderness, No Masses Extremities: No Cyanosis, Other (+ 1 edema BLE) Skin: No Rashes, No Significant Lesion Neuro: Normal Speech Psych/Mental Status: Mental Status NL, Mood NL Results Lab Laboratory Tests 05/29/18 04:20 05/29/18 04:35 A/P-Cardiology Admission Diagnosis Sepsis Pneumonia Coronary artery disease Hypotension Assessment/Plan Severe sepsis with hypotension, received IV fluid and blood pressure is better at this time. Receiving antibiotics. Pneumonia, receiving antibiotic, slowly improving, continue to monitor. COPD, oxygen dependent, managed by Dr. Whitley Pulmonary nodule noted on chest x-ray, had CT scan of the chest, followed by Dr. Whitley Coronary artery disease, history of stent done in 2010, currently stable, no active chest pain. 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 History of MS, ischemic bowel and colostomy, continue to monitor at this time. No changes are recommended Hypomagnesemia, replace and monitor. 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 Jo and Dr. Ngo Clinical Quality Measures DVT/VTE Risk/Contraindication: Risk Factor Score Per Nursin RFS Level Per Nursing on Admit: 4+=Very High DORCAS VELIZ MD May 29, 2018 8:30 am
[2018-05-29] MEDS: PREGABALIN 75 MG (LYRICA) CAP PO SCH ×3 (08:44→21:56)
[2018-05-29] MEDS: PANTOPRAZOLE 40 MG (PROTONIX) TAB PO SCH (08:44)
[2018-05-29] MEDS: MAGNESIUM OXIDE (MAG-OX)400 MG TAB PO SCH (08:44)
[2018-05-29] MEDS: FAMOTIDINE 20 MG (PEPCID) TABLET PO SCH ×2 (08:44→21:55)
[2018-05-29] MEDS: ZINC SULFATE 220 MG CAPSULE PO SCH (08:44)
[2018-05-29] MEDS: guaiFENesin SYRUP 100 MG/5 ML 10 ML (ROBITUSSIN SF) PO SCH ×4 (08:44→21:56)
[2018-05-29] MEDS: APIXABAN 5 MG (ELIQUIS) TABLET PO SCH ×2 (08:44→21:55)
[2018-05-29] MEDS: NICOTINE 21 MG (NICODERM) PATCH TD SCH (08:45)
[2018-05-29] MEDS: FLUTICASONE NASAL SPRAY (FLONASE) 16 GM BTL NS SCH (08:45)
[2018-05-29] MEDS: MICONAZOLE 2% POWDER (DESENEX AF) 90 GM TOP SCH ×2 (08:46→22:02)
[2018-05-29] MEDS: GENTAMICIN 0.3% OPHTH SOLN 5 ML EACH EAR SCH ×2 (08:46→21:59)
[2018-05-29] MEDS ORDERED: ZINC GLUCONATE 30 MG PO SCH (09:00)
[2018-05-29] MEDS ORDERED: NON-FORMULARY MEDICATION 1 EA EA (Magnesium Oxide (Magnesium) 400 MG) PO SCH (09:00)
[2018-05-29] MEDS ORDERED: MEGESTROL ACETATE PO SCH (09:00)
[2018-05-29] MEDS: MEGESTROL ACETATE 400 MG/10 ML (MEGACE) UDC PO SCH (09:21)
--- NOTE | 2018-05-29 09:41 | Progress Note-Hospitalist ---
Subjective HPI/CC On Admission Date Seen by Provider: May 29, 2018 Time Seen by Provider: 09:15 Chief complaint: Weakness with sepsis. HPI: This is a 67[facility]WM who [facility] [place], who has MS, and wheelchair bound, has a decubitus ulcer who presented to the [facility] ER with sepsis and pneumonia considered severe sepsis by the time he arrived to [facility] [place], operated by [facility] so placed in the ICU, initiated aggressive IV fluids, and broad spectrum antibiotics, and Dr. Whitley was consulted. Pt is currently reporting a lot of pain so all home medications were restarted. Pt has a colostomy. Overall very irritated that his home pain medication has not been restarted so did that promptly and provided supportive care. Subjective/Events-last exam Wound care evaluated him and obtaining regular wound care changes daily Had been at [facility] before and does not want to go back there but willing to do some sort of skilled care after discharge from the hospital He resides at assisted living Colostomy is functioning well Home medication is all restarted and he seems to be very comfortable Review of Systems General: Fatigue Focused Exam Lactate Level 05/27/18 18:00: Lactic Acid Level 1.02 05/29/18 16:56: Lactic Acid Level 0.77 Objective Exam Vital Signs Vital Signs Date Time Temp Pulse Resp B/P (MAP) Pulse Ox O2 Delivery O2 Flow Rate FiO2 05/29/18 20:00 99.1 72 16 72/45 (54) 96 Nasal Cannula 3.00 05/28/18 01:25 32 Capillary Refill : Less Than 3 Seconds General Appearance: No Apparent Distress, WD/WN, Chronically ill HEENT: PERRL/EOMI, Normal ENT Inspection, Pharynx Normal, Moist Mucous Membranes Neck: Full Range of Motion, Normal Inspection, Non Tender Respiratory: Chest Non Tender, Lungs Clear, Normal Breath Sounds, No Accessory Muscle Use, No Respiratory Distress Cardiovascular: Regular Rate, Rhythm, No Edema, No Gallop, No JVD, No Murmur, Normal Peripheral Pulses Gastrointestinal: Normal Bowel Sounds, No Organomegaly, No Pulsatile Mass, Non Tender, Soft Back: Normal Inspection, No CVA Tenderness, No Vertebral Tenderness Extremity: Normal Capillary Refill, Normal Inspection, Normal Range of Motion ( limited ROM lower extremities), Non Tender, No Calf Tenderness, No Pedal Edema Neurologic/Psychiatric: Alert, Oriented x3, No Motor/Sensory Deficits, Normal Mood/Affect, Motor Weakness (lower extremities) Skin: Normal Color, Warm/Dry Lymphatic: No Adenopathy Results/Procedures Lab Laboratory Tests 05/29/18 04:20 05/29/18 04:35 05/29/18 16:56 Patient resulted labs reviewed. Assessment/Plan Assessment and Plan Assess & Plan/Chief Complaint Assessment: Severe Sepsis Hypotension Pneumonia COPD oxygen dependent Lung nodule per CXR Chronic coccyx wound MS hx and wheel chair bound Chronic pain Smoker Colostomy plan: Abx Home meds Pain meds Monitor labs Consult Dr Keyes Diagnosis/Problems Diagnosis/Problems (1) Right middle lobe pulmonary infiltrate Status: Acute (2) Severe sepsis Status: Acute (3) Multiple sclerosis Status: Chronic (4) Wheelchair dependence Status: Chronic (5) Smoker Status: Chronic (6) Chronic pain Status: Chronic Qualifiers: Chronic pain type: chronic pain syndrome Qualified Codes: G89.4 - Chronic pain syndrome (7) Atrial fibrillation Status: Chronic Qualifiers: Atrial fibrillation type: chronic Qualified Codes: I48.2 - Chronic atrial fibrillation (8) COPD with exacerbation Status: Acute (9) Fever and chills Status: Acute Clinical Quality Measures DVT/VTE Risk/Contraindication: Risk Factor Score Per Nursin RFS Level Per Nursing on Admit: 4+=Very High CORINE LU DO May 29, 2018 09:41
--- NOTE | 2018-05-29 10:01 | Pulmonary Progress Note ---
Subjective Time Seen by a Provider: 10:02 Subjective/Events-last exam PT appears to be doing much better. Sepsis Event Evaluation Height, Weight, BMI Height: 5'8.00" Weight: 124lbs. 0.0oz. 56.622077lo; 21.0 BMI Method:Stated Focused Exam Lactate Level 05/27/18 18:00: Lactic Acid Level 1.02 Exam Exam Vital Signs Date Time Temp Pulse Resp B/P (MAP) Pulse Ox O2 Delivery O2 Flow Rate FiO2 05/29/18 07:12 95 Nasal Cannula 3.00 05/29/18 04:00 99.7 99 18 106/64 (78) 97 Nasal Cannula 3.00 05/29/18 00:00 99.8 90 18 124/68 (86) 98 Nasal Cannula 3.00 05/28/18 20:10 100.4 92 18 94/55 (68) 98 Nasal Cannula 3.00 05/28/18 20:00 Nasal Cannula 2.00 05/28/18 19:28 97 Nasal Cannula 3.00 05/28/18 16:00 Nasal Cannula 2.00 05/28/18 15:55 97.4 05/28/18 15:55 97.4 05/28/18 15:40 99.2 93 18 110/53 (72) 95 Nasal Cannula 3.00 05/28/18 14:00 Nasal Cannula 3.00 05/28/18 13:00 97.4 05/28/18 12:00 97.4 83 16 135/77 (96) 99 Nasal Cannula 3.00 05/28/18 11:35 97.4 05/28/18 11:00 Nasal Cannula 2.00 05/28/18 10:00 97.4 80 16 143/74 (97) 96 Nasal Cannula 3.00 05/28/18 10:00 Nasal Cannula 2.00 I & O 05/29/18 07:00 Intake Total 2720 ml Output Total 2150 ml Balance 570 ml Height & Weight Height: 5'8.00" Weight: 124lbs. 0.0oz. 56.645176sh; 21.0 BMI Method:Stated General Appearance: No Apparent Distress, WD/WN, Chronically ill HEENT: PERRL/EOMI, Normal ENT Inspection, Pharynx Normal, Moist Mucous Membranes Neck: Full Range of Motion, Normal Inspection, Non Tender Respiratory: Chest Non Tender, Lungs Clear, Normal Breath Sounds, No Accessory Muscle Use, No Respiratory Distress Cardiovascular: Regular Rate, Rhythm, No Edema, No Gallop, No JVD, No Murmur, Normal Peripheral Pulses Capillary Refill: Less Than 3 Seconds Extremity: Normal Capillary Refill, Normal Inspection, Normal Range of Motion ( limited ROM lower extremities), Non Tender, No Calf Tenderness, No Pedal Edema Neurologic/Psychiatric: Alert, Oriented x3, No Motor/Sensory Deficits, Normal Mood/Affect, Motor Weakness (lower extremities) Skin: Normal Color, Warm/Dry Lymphatic: No Adenopathy Results Lab Laboratory Tests 05/27/18 17:20 05/28/18 03:15 05/29/18 04:20 05/29/18 04:35 Assessment/Plan Assessment/Plan Severe Sepsis -Cefepime -Pitts cultures neg thus far -Influenza neg Severe COPD oxygen dependent -Pt uses 3 liters at [facility] -SVNs -ABG C02 is 46 -Needs out pt PFT and yearly screening CT - CT of chest - no lung nodule does show severe emphysema with pleural thickening Chronic coccyx wound -Wound care MS hx and wheel chair bound -From [facility] ANNELISE HOOVER DO May 29, 2018 10:01
--- NOTE | 2018-05-29 10:37 | NUR ---
CM/SS spoke with the patient for SNF need likely at discharge. Patient does not want to go to [facility] as has previously been there. Discussed the facilities in [place] as the patient has been at [facility]. Patient will think on the facilities and then SW will check back in with him on where would like referral sent.
[2018-05-29] MEDS: AMIODARONE 200 MG (CORDARONE) TAB PO SCH (12:42)
--- NOTE | 2018-05-29 12:51 | NUR ---
CM/SS checked back in with the patient and he would like referral sent to [facility].
--- NOTE | 2018-05-29 13:40 | Diagnostic Imaging Report ---
PROCEDURE: MRI pelvis without contrast. TECHNIQUE: Multiplanar, multisequence noncontrasted pelvic MRI performed. INDICATION: Nonhealing of sacral ulcer. FINDINGS: No sacrococcygeal cortical destruction, marrow edema, or findings of osteomyelitis. The most caudal tip of both ischial tuberosities is just below the [id number]. The visualized ischial marrow signal intensity is normal. No symphyseal diastasis. The hips are replaced bilaterally. Sacral promontory and wings appear unremarkable. The innominate bones appear unremarkable. No perirectal hemorrhage or abscess. No infiltration or distortion of the fat in the ischiorectal fossa. The urinary bladder is catheterized. The pelvic side nagy are unremarkable. IMPRESSION: No abscess or drainable fluid collection and no appreciable osteomyelitis. Dictated by: Dictated on workstation # [id number]
--- NOTE | 2018-05-29 15:26 | NUR ---
CM/SS patient is wanting to return to [facility] in [facility]. Spoke with ERIKA in [facility] and they are fine with taking him back, he did have [facility] in place and would like that continued for wound care.
[2018-05-29] MEDS: IBUPROFEN TABLET 200 MG TAB PO PRN (15:51)
[2018-05-29] MEDS ORDERED: NS IV 1000 ML 1,000 ML IV SCH ×2 (17:00→20:30)
[2018-05-29 17:03] LABS: BASOPHILS % (AUTO) 1 % (0-10); EOSINOPHILS % (AUTO) 0 % (0-10); HEMATOCRIT 35 % (40-54); HEMOGLOBIN 11.1 G/DL (13.3-17.7); LYMPHOCYTES # (AUTO) 0.4 X 10^3 (1.0-4.0); LYMPHOCYTES % (AUTO) 9 % (12-44); MEAN CORPUSCULAR HEMOGLOBIN 29 PG (25-34); MEAN CORPUSCULAR HGB CONC 32 G/DL (32-36); MEAN CORPUSCULAR VOLUME 90 FL (80-99); MONOCYTES # (AUTO) 0.3 X 10^3 (0.0-1.0); MONOCYTES % (AUTO) 6 % (0-12); NEUTROPHILS # (AUTO) 3.7 X 10^3 (1.8-7.8); NEUTROPHILS % (AUTO) 85 % (42-75); PLATELET COUNT 127 10^3/uL (130-400); RED CELL DISTRIBUTION WIDTH 15.7 % (10.0-14.5); WHITE BLOOD COUNT 4.3 10^3/uL (4.3-11.0)
--- NOTE | 2018-05-29 17:08 | NUR ---
16:[address] Mae of patient BP 76/49 with automatic cuff and 74/52 Manual on R arm. Patient reports feeling a little light headed. Temp 99.4 Temporal and HR 97, O2 94% on 3L via nc. Dr. Mae placed new orders for patient at 16:48 and telephone order received to hold Morphine for SBP<120.
[2018-05-29 17:31] LABS: ALANINE AMINOTRANSFERASE 13 U/L (0-55); ALKALINE PHOSPHATASE 65 U/L (40-136); BILIRUBIN,TOTAL 0.2 MG/DL (0.1-1.0); BUN/CREATININE RATIO 16; CALCIUM 8.1 MG/DL (8.5-10.1); CARBON DIOXIDE 24 MMOL/L (21-32); CHLORIDE 106 MMOL/L (98-107); CREATININE SERUM 1.07 MG/DL (0.60-1.30); GFR ESTIMATED > 60; GLUCOSE 107 MG/DL (70-105); POTASSIUM 3.5 MMOL/L (3.6-5.0); SODIUM 137 MMOL/L (135-145); TOTAL PROTEIN 5.3 GM/DL (6.4-8.2)
--- NOTE | 2018-05-29 20:19 | NUR ---
B/P 72/45, PULSE 72. DR LU ORDERED 1L NS BOLUS AND CALL HER BACK WITH UPDATED B/P IN 1 HOUR.
[2018-05-29] MEDS: methylPREDNISolone 40 MG/ML (Solu-MEDROL) VIAL IV SCH (20:32)
--- NOTE | 2018-05-29 21:26 | NUR ---
B/P 86/60, PULSE 62. DR. LU NOTIFIED. ORDER TO HOLD MS CONTIN SBP>110, AND GIVE MARYBETHA, NATHANIELL, AND XANAX 30 MINS APART. Addendum: 05/29/18 at 2259 by TRISTEN PECK RN HOLD MS CONTIN FOR SBP <110
[2018-05-29] MEDS: TAMSULOSIN 0.4 MG (FLOMAX) CAP PO SCH (21:55)
[2018-05-29] MEDS: QUEtiapine 25 MG (SEROquel) TAB IMMEDIATE RELEASE PO SCH (22:37)
[2018-05-29] MEDS: ALPRAZolam 0.5 MG (XANAX) TAB PO SCH (23:16)
[2018-05-30] VITALS (7 sets, daily range): BP systolic 92–147; BP diastolic 51–80
[2018-05-30] MEDS: AMIODARONE 200 MG (CORDARONE) TAB PO SCH ×2 (00:36→12:24)
[2018-05-30] MEDS: CEFEPIME 1,000 MG/SWFI 10 ML IV PUSH IV SCH ×8 (03:20→20:58)
[2018-05-30 05:01] LABS: ALANINE AMINOTRANSFERASE 13 U/L (0-55); ALKALINE PHOSPHATASE 68 U/L (40-136); BILIRUBIN,TOTAL 0.2 MG/DL (0.1-1.0); BUN/CREATININE RATIO 16; CALCIUM 8.3 MG/DL (8.5-10.1); CARBON DIOXIDE 20 MMOL/L (21-32); CHLORIDE 110 MMOL/L (98-107); CREATININE SERUM 1.06 MG/DL (0.60-1.30); GFR ESTIMATED > 60; GLUCOSE 142 MG/DL (70-105); POTASSIUM 4.5 MMOL/L (3.6-5.0); SODIUM 139 MMOL/L (135-145); TOTAL PROTEIN 5.5 GM/DL (6.4-8.2)
[2018-05-30] MEDS: morphine ER 30 MG (MS CONTIN) TAB PO SCH ×3 (05:32→22:15)
[2018-05-30] MEDS: MULTIVIT W/MINERALS TAB (THERAGRAN M) PO SCH (05:36)
[2018-05-30] MEDS: CATHETER FLUSH 10 ML SYR IV SCH ×3 (05:36→21:03)
[2018-05-30] MEDS: RT-ALBUTEROL/IPRATROPIUM 3 ML (DUONEB) VIAL INH SCH ×4 (07:43→19:42)
[2018-05-30] MEDS: MICONAZOLE 2% POWDER (DESENEX AF) 90 GM TOP SCH ×2 (07:47→21:02)
[2018-05-30] MEDS: FLUTICASONE NASAL SPRAY (FLONASE) 16 GM BTL NS SCH (07:47)
[2018-05-30] MEDS: GENTAMICIN 0.3% OPHTH SOLN 5 ML EACH EAR SCH ×2 (07:47→21:03)
[2018-05-30] MEDS: MEGESTROL ACETATE 400 MG/10 ML (MEGACE) UDC PO SCH ×2 (07:48→08:05)
[2018-05-30] MEDS: NICOTINE 21 MG (NICODERM) PATCH TD SCH (07:48)
[2018-05-30] MEDS: methylPREDNISolone 40 MG/ML (Solu-MEDROL) VIAL IV SCH ×2 (07:48→21:00)
[2018-05-30] MEDS: MAGNESIUM OXIDE (MAG-OX)400 MG TAB PO SCH (07:48)
[2018-05-30] MEDS: ZINC SULFATE 220 MG CAPSULE PO SCH (07:48)
[2018-05-30] MEDS: guaiFENesin SYRUP 100 MG/5 ML 10 ML (ROBITUSSIN SF) PO SCH ×4 (07:48→21:01)
[2018-05-30] MEDS: PANTOPRAZOLE 40 MG (PROTONIX) TAB PO SCH (07:48)
[2018-05-30] MEDS: FAMOTIDINE 20 MG (PEPCID) TABLET PO SCH ×2 (07:49→21:01)
[2018-05-30] MEDS: APIXABAN 5 MG (ELIQUIS) TABLET PO SCH ×2 (07:49→21:01)
[2018-05-30] MEDS: PREGABALIN 75 MG (LYRICA) CAP PO SCH ×3 (07:49→21:01)
--- NOTE | 2018-05-30 08:00 | NUR ---
PRIOR TO A.M. MEDICATIONS PULSE WAS 55 WITH A B/P OF 147/79
--- NOTE | 2018-05-30 08:18 | Wound Care Assessment ---
Wound Care Assessment Date Seen by Provider: May 30, 2018 Time Seen by Provider: 07:30 Chief Complaint Sacral ulcer. HPI 67 year old male with chronic, Stage 4 sacral pressure ulcer. The MRI is negative for underlying osteomyelitis. The wound is stable. The patient may be discharged with Iodoform wound packing as ordered. Smoking Status: Current Everyday Smoker Recreational Drug Use: No Alcohol Use: Denies Use Exam Vital Signs Date Time Temp Pulse Resp B/P (MAP) Pulse Ox O2 Delivery O2 Flow Rate FiO2 05/30/18 07:43 99 Nasal Cannula 3.00 05/30/18 05:31 54 96/57 (70) 05/30/18 03:12 96.7 18 05/28/18 01:25 32 Capillary Refill : Less Than 3 Seconds Results Laboratory Tests 05/29/18 13:06: Glucometer 138H 05/29/18 16:56: White Blood Count 4.3, Red Blood Count 3.89L, Hemoglobin 11.1L, Hematocrit 35L, Mean Corpuscular Volume 90, Mean Corpuscular Hemoglobin 29, Mean Corpuscular Hemoglobin Concent 32, Red Cell Distribution Width 15.7H, Platelet Count 127L, Mean Platelet Volume 11.0H, Neutrophils (%) (Auto) 85H, Lymphocytes (%) (Auto) 9L, Monocytes (%) (Auto) 6, Eosinophils (%) (Auto) 0, Basophils (%) (Auto) 1, Neutrophils # (Auto) 3.7, Lymphocytes # (Auto) 0.4L, Monocytes # (Auto) 0.3, Eosinophils # (Auto) 0.0, Basophils # (Auto) 0.0, Sodium Level 137, Potassium Level 3.5L, Chloride Level 106, Carbon Dioxide Level 24, Anion Gap 7, Blood Urea Nitrogen 17, Creatinine 1.07, Estimat Glomerular Filtration Rate > 60, BUN/ Creatinine Ratio 16, Glucose Level 107H, Lactic Acid Level 0.77, Calcium Level 8.1L, Corrected Calcium 8.9, Total Bilirubin 0.2, Aspartate Amino Transf (AST/ SGOT) 19, Alanine Aminotransferase (ALT/SGPT) 13, Alkaline Phosphatase 65, Total Protein 5.3L, Albumin 3.0L 05/29/18 19:15: 05/29/18 20:32: Glucometer 117H 05/30/18 03:40: Sodium Level 139, Potassium Level 4.5, Chloride Level 110H, Carbon Dioxide Level 20L, Anion Gap 9, Blood Urea Nitrogen 17, Creatinine 1.06, Estimat Glomerular Filtration Rate > 60, BUN/Creatinine Ratio 16, Glucose Level 142H, Calcium Level 8.3L, Corrected Calcium 9.1, Total Bilirubin 0.2, Aspartate Amino Transf (AST/SGOT) 22, Alanine Aminotransferase (ALT/SGPT) 13, Alkaline Phosphatase 68, Total Protein 5.5L, Albumin 3.0L 05/30/18 05:19: Glucometer 158H Microbiology 05/27/18 Blood Culture - Preliminary, Resulted No growth 05/28/18 Gram Stain - Final, Complete 05/28/18 Sputum Culture - Final, Complete Microbiology 05/28/18 Gram Stain - Final, Complete 05/28/18 Sputum Culture - Final, Complete TARAS JOSHI MD May 30, 2018 08:18
--- NOTE | 2018-05-30 10:25 | Cardiology Progress Note ---
Subjective Date Seen by Provider: May 30, 2018 Time Seen by Provider: 10:23 Subjective/Events-last exam Patient is sitting in a chair, feeling better. No new complaint, still having dyspnea Review of Systems General: No Chills, No Night Sweats, No Fatigue, No Malaise, No Appetite, No Other HEENT: No Head Aches, No Visual Changes, No Ear Pain, No Dysphasia, No Sinus Congestion, No Post Nasal Drip, No Sore Throat, No Other Pulmonary: Dyspnea, Cough; No Pleuritic Chest Pain, No Other Cardiovascular: No: Chest Pain, Palpitations, Orthopnea, Paroxysmal Noc. Dyspnea, Edema, Lt Headedness, Other Focused Exam Lactate Level 05/27/18 18:00: Lactic Acid Level 1.02 05/29/18 16:56: Lactic Acid Level 0.77 Objective-Cardiology Exam Last Set of Vital Signs Vital Signs 05/28/18 05/30/18 01:25 08:00 Temp 96.0 Pulse 55 Resp 18 B/P (MAP) 147/79 (101) Pulse Ox 98 O2 Delivery Nasal Cannula O2 Flow Rate 3.00 FiO2 32 Capillary Refill : Less Than 3 Seconds I&O Intake and Output 05/30/18 00:00 Intake Total 3400 ml Output Total 1850 ml Balance 1550 ml Intake Oral 1400 ml IV Total 2000 ml Output Urine Total 1250 ml Stool Total 600 ml General: Alert, Oriented X3, Cooperative HEENT: Atraumatic, PERRLA Neck: Supple, No JVD, No Thyromegaly Lungs: Other (bilat wheezing) Heart: Regular Rate, Normal S1, Normal S2 Abdomen: Soft, No Tenderness, No Masses Extremities: No Cyanosis, Other (+ 1 edema BLE) Skin: No Rashes, No Significant Lesion Neuro: Normal Speech Psych/Mental Status: Mental Status NL, Mood NL Results Lab Laboratory Tests 05/29/18 16:56 05/30/18 03:40 A/P-Cardiology Admission Diagnosis Sepsis Pneumonia Coronary artery disease Hypotension Assessment/Plan Severe sepsis with hypotension, either at this time, managed by primary care team and improving Pneumonia, receiving antibiotic, slowly improving, continue to monitor. COPD, oxygen dependent, managed by Dr. Whitley Pulmonary nodule noted on chest x-ray, had CT scan of the chest, followed by Dr. Whitley Coronary artery disease, history of stent done in 2010, currently stable, no active chest pain. 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 History of MS, ischemic bowel and colostomy, continue to monitor at this time. No changes are recommended I'll try to obtain copy of his records from his primary assignment agent in [place] , Dr. Jo and Dr. Ngo Clinical Quality Measures DVT/VTE Risk/Contraindication: Risk Factor Score Per Nursin RFS Level Per Nursing on Admit: 4+=Very High DORCAS VELIZ MD May 30, 2018 10:25
--- NOTE | 2018-05-30 10:41 | Progress Note-Hospitalist ---
Subjective HPI/CC On Admission Date Seen by Provider: May 30, 2018 Time Seen by Provider: 09:45 Chief complaint: Weakness with sepsis. HPI: This is a 67[facility]WM who [facility] [place], who has MS, and wheelchair bound, has a decubitus ulcer who presented to the [place] ER with sepsis and pneumonia considered severe sepsis by the time he arrived to [facility] so placed in the ICU, initiated aggressive IV fluids, and broad spectrum antibiotics, and Dr. Whitley was consulted. Pt is currently reporting a lot of pain so all home medications were restarted. Pt has a colostomy. Overall very irritated that his home pain medication has not been restarted so did that promptly and provided supportive care. Subjective/Events-last exam Patient improved after hypotension yesterday that was asymptomatic Reports he does not take steroids on a regular basis because it appeared that it was more of an adrenal crisis Patient has responded to IV Solu-Medrol May want to stay another day because of just generalized weakness Will discontinue catheter at discharge Colostomy is functioning well Patient up in a chair and doing well Review of Systems General: Fatigue Focused Exam Lactate Level 05/27/18 18:00: Lactic Acid Level 1.02 05/29/18 16:56: Lactic Acid Level 0.77 Objective Exam Vital Signs Vital Signs Date Time Temp Pulse Resp B/P (MAP) Pulse Ox O2 Delivery O2 Flow Rate FiO2 05/30/18 09:00 98 Nasal Cannula 2.00 95 05/30/18 08:00 96.0 55 18 147/79 (101) Capillary Refill : Less Than 3 Seconds General Appearance: No Apparent Distress, WD/WN, Chronically ill HEENT: PERRL/EOMI, Normal ENT Inspection, Pharynx Normal, Moist Mucous Membranes Neck: Full Range of Motion, Normal Inspection, Non Tender Respiratory: Chest Non Tender, No Accessory Muscle Use, No Respiratory Distress , Crackles, Wheezing Cardiovascular: Regular Rate, Rhythm, No Edema, No Gallop, No JVD, No Murmur, Normal Peripheral Pulses Gastrointestinal: Normal Bowel Sounds, No Organomegaly, No Pulsatile Mass, Non Tender, Soft Back: Normal Inspection, No CVA Tenderness, No Vertebral Tenderness Extremity: Normal Capillary Refill, Normal Inspection, Normal Range of Motion ( limited ROM lower extremities), Non Tender, No Calf Tenderness, No Pedal Edema Neurologic/Psychiatric: Alert, Oriented x3, No Motor/Sensory Deficits, Normal Mood/Affect, Motor Weakness (lower extremities) Skin: Normal Color, Warm/Dry Lymphatic: No Adenopathy Results/Procedures Lab Laboratory Tests 05/29/18 16:56 05/30/18 03:40 Patient resulted labs reviewed. Assessment/Plan Assessment and Plan Assess & Plan/Chief Complaint Assessment: Severe Sepsis Hypotension Pneumonia COPD oxygen dependent Lung nodule per CXR Chronic coccyx wound MS hx and wheel chair bound Chronic pain Smoker Colostomy plan: Abx Home meds Pain meds Monitor labs Consult Dr Keyes and Angi Monitor hypotension Diagnosis/Problems Diagnosis/Problems (1) Hypotension Status: Acute (2) Right middle lobe pulmonary infiltrate Status: Acute (3) Severe sepsis Status: Acute (4) Multiple sclerosis Status: Chronic (5) Wheelchair dependence Status: Chronic (6) Smoker Status: Chronic (7) Chronic pain Status: Chronic Qualifiers: Chronic pain type: chronic pain syndrome Qualified Codes: G89.4 - Chronic pain syndrome (8) Atrial fibrillation Status: Chronic Qualifiers: Atrial fibrillation type: chronic Qualified Codes: I48.2 - Chronic atrial fibrillation (9) COPD with exacerbation Status: Acute (10) Fever and chills Status: Resolved Resolution Date/Time: 05/30/18 @ 11:19 (11) Wheezing Status: Acute Clinical Quality Measures DVT/VTE Risk/Contraindication: Risk Factor Score Per Nursin RFS Level Per Nursing on Admit: 4+=Very High CORINE LU DO May 30, 2018 10:41
--- NOTE | 2018-05-30 12:32 | Pulmonary Progress Note ---
Subjective Time Seen by a Provider: 12:31 Subjective/Events-last exam Pt is sleeping in chair however does arouse. Sepsis Event Evaluation Height, Weight, BMI Height: 5'8.00" Weight: 128lbs. 0.0oz. 58.009133wa; 21.0 BMI Method:Stated Focused Exam Lactate Level 05/27/18 18:00: Lactic Acid Level 1.02 05/29/18 16:56: Lactic Acid Level 0.77 Exam Exam Vital Signs Date Time Temp Pulse Resp B/P (MAP) Pulse Ox O2 Delivery O2 Flow Rate FiO2 05/30/18 09:00 98 Nasal Cannula 2.00 95 05/30/18 08:00 96.0 55 18 147/79 (101) 98 Nasal Cannula 3.00 05/30/18 07:43 99 Nasal Cannula 3.00 05/30/18 05:31 54 96/57 (70) 05/30/18 03:12 96.7 59 18 106/66 (79) 97 Nasal Cannula 3.00 05/30/18 00:02 97.6 62 18 92/51 (65) 99 Nasal Cannula 3.00 05/29/18 22:37 64 82/57 (65) 05/29/18 21:30 62 86/80 (82) 99 Nasal Cannula 3.00 05/29/18 21:00 Nasal Cannula 3.00 05/29/18 20:00 99.1 72 16 72/45 (54) 96 Nasal Cannula 3.00 05/29/18 16:21 99.4 05/29/18 16:05 99.4 97 18 74/52 (59) 94 Nasal Cannula 3.00 05/29/18 15:51 100.2 05/29/18 14:58 94 Nasal Cannula 3.00 05/29/18 13:50 101.0 05/29/18 13:22 100.8 I & O 05/30/18 07:00 Intake Total 3400 ml Output Total 2475 ml Balance 925 ml Height & Weight Height: 5'8.00" Weight: 128lbs. 0.0oz. 58.898354wc; 21.0 BMI Method:Stated General Appearance: No Apparent Distress, WD/WN, Chronically ill HEENT: PERRL/EOMI, Normal ENT Inspection, Pharynx Normal, Moist Mucous Membranes Neck: Full Range of Motion, Normal Inspection, Non Tender Respiratory: Chest Non Tender, No Accessory Muscle Use, No Respiratory Distress , Crackles, Wheezing Cardiovascular: Regular Rate, Rhythm, No Edema, No Gallop, No JVD, No Murmur, Normal Peripheral Pulses Capillary Refill: Less Than 3 Seconds Extremity: Normal Capillary Refill, Normal Inspection, Normal Range of Motion ( limited ROM lower extremities), Non Tender, No Calf Tenderness, No Pedal Edema Neurologic/Psychiatric: Alert, Oriented x3, No Motor/Sensory Deficits, Normal Mood/Affect, Motor Weakness (lower extremities) Skin: Normal Color, Warm/Dry Lymphatic: No Adenopathy Results Lab Laboratory Tests 05/29/18 04:20 05/29/18 04:35 05/29/18 16:56 05/30/18 03:40 Assessment/Plan Assessment/Plan Severe Sepsis -Cefepime -Pitts cultures neg thus far -Influenza neg Severe COPD oxygen dependent -Pt uses 3 liters at [facility] -SVNs -ABG C02 is 46 -Needs out pt PFT and yearly screening CT - CT of chest - no lung nodule does show severe emphysema with pleural thickening Chronic coccyx wound -Wound care MS hx and wheel chair bound -From [facility] ANNELISE HOOVER DO May 30, 2018 12:32
--- NOTE | 2018-05-30 13:10 | NUR ---
b/p at this time is 144/80 with a pulse of 58.
--- NOTE | 2018-05-30 13:21 | NUR ---
b/p prior to 156/74 and pulse was 68
[2018-05-30] MEDS: QUEtiapine 25 MG (SEROquel) TAB IMMEDIATE RELEASE PO SCH (21:01)
[2018-05-30] MEDS: TAMSULOSIN 0.4 MG (FLOMAX) CAP PO SCH (21:02)
[2018-05-30] MEDS: ALPRAZolam 0.5 MG (XANAX) TAB PO SCH (21:08)
[2018-05-30] MEDS: IBUPROFEN TABLET 200 MG TAB PO PRN (21:17)
[2018-05-31] VITALS (8 sets, daily range): BP systolic 102–132; BP diastolic 55–83
[2018-05-31] MEDS: AMIODARONE 200 MG (CORDARONE) TAB PO SCH ×3 (00:17→23:21)
[2018-05-31] MEDS: CEFEPIME 1,000 MG/SWFI 10 ML IV PUSH IV SCH ×6 (02:56→14:11)
[2018-05-31] MEDS: morphine ER 30 MG (MS CONTIN) TAB PO SCH ×3 (06:53→21:07)
[2018-05-31] MEDS: MULTIVIT W/MINERALS TAB (THERAGRAN M) PO SCH (06:54)
[2018-05-31] MEDS: CATHETER FLUSH 10 ML SYR IV SCH ×3 (06:54→21:07)
[2018-05-31 06:55] LABS: HEMOGLOBIN 12.4 G/DL (13.3-17.7); MEAN PLATELET VOLUME 12.1 FL (7.4-10.4); RED CELL DISTRIBUTION WIDTH 15.5 % (10.0-14.5); WHITE BLOOD COUNT 3.8 10^3/uL (4.3-11.0)
[2018-05-31 07:21] LABS: ALANINE AMINOTRANSFERASE 19 U/L (0-55); ALBUMIN 3.2 GM/DL (3.2-4.5); ALKALINE PHOSPHATASE 65 U/L (40-136); BILIRUBIN,TOTAL 0.2 MG/DL (0.1-1.0); BUN/CREATININE RATIO 20; CALCIUM 8.6 MG/DL (8.5-10.1); CARBON DIOXIDE 19 MMOL/L (21-32); CHLORIDE 110 MMOL/L (98-107); CREATININE SERUM 0.98 MG/DL (0.60-1.30); GFR ESTIMATED > 60; GLUCOSE 129 MG/DL (70-105); MAGNESIUM 1.8 MG/DL (1.8-2.4); POTASSIUM 4.4 MMOL/L (3.6-5.0); SODIUM 138 MMOL/L (135-145)
[2018-05-31] MEDS: RT-ALBUTEROL/IPRATROPIUM 3 ML (DUONEB) VIAL INH SCH ×4 (07:34→19:24)
--- NOTE | 2018-05-31 08:08 | Pulmonary Progress Note ---
Subjective Time Seen by a Provider: 08:08 Subjective/Events-last exam No complications noted. Sepsis Event Evaluation Height, Weight, BMI Height: 5'8.00" Weight: 130lbs. 0.0oz. 58.468194xh; 21.0 BMI Method:Stated Focused Exam Lactate Level 05/29/18 16:56: Lactic Acid Level 0.77 Exam Exam Vital Signs Date Time Temp Pulse Resp B/P (MAP) Pulse Ox O2 Delivery O2 Flow Rate FiO2 05/31/18 07:38 95 Nasal Cannula 2.00 05/31/18 06:50 56 123/71 (88) 05/31/18 04:31 99.2 59 12 127/81 (96) 97 Nasal Cannula 3.00 05/31/18 00:52 98.3 65 14 105/64 (78) 97 Nasal Cannula 3.00 05/30/18 20:55 Nasal Cannula 3.00 05/30/18 20:00 98.3 98 18 108/59 (75) 97 Nasal Cannula 3.00 05/30/18 19:42 96 Nasal Cannula 2.00 05/30/18 15:31 97.3 62 16 123/77 (92) 100 Nasal Cannula 3.00 05/30/18 14:33 97 Nasal Cannula 3.00 05/30/18 12:00 96.8 57 18 144/80 (101) 100 Nasal Cannula 3.00 05/30/18 09:00 98 Nasal Cannula 2.00 95 I & O 05/31/18 07:00 Intake Total 7110 ml Output Total 1775 ml Balance 5335 ml Height & Weight Height: 5'8.00" Weight: 130lbs. 0.0oz. 58.887720uq; 21.0 BMI Method:Stated General Appearance: No Apparent Distress, WD/WN, Chronically ill HEENT: PERRL/EOMI, Normal ENT Inspection, Pharynx Normal, Moist Mucous Membranes Neck: Full Range of Motion, Normal Inspection, Non Tender Respiratory: Chest Non Tender, No Accessory Muscle Use, No Respiratory Distress , Crackles, Wheezing Cardiovascular: Regular Rate, Rhythm, No Edema, No Gallop, No JVD, No Murmur, Normal Peripheral Pulses Capillary Refill: Less Than 3 Seconds Extremity: Normal Capillary Refill, Normal Inspection, Normal Range of Motion ( limited ROM lower extremities), Non Tender, No Calf Tenderness, No Pedal Edema Neurologic/Psychiatric: Alert, Oriented x3, No Motor/Sensory Deficits, Normal Mood/Affect, Motor Weakness (lower extremities) Skin: Normal Color, Warm/Dry Lymphatic: No Adenopathy Results Lab Laboratory Tests 05/29/18 16:56 05/30/18 03:40 05/31/18 06:45 Assessment/Plan Assessment/Plan Severe Sepsis -Cefepime -Pitts cultures neg thus far -Influenza neg Severe COPD oxygen dependent -Pt uses 3 liters at [facility] -Ns -ABG C02 is 46 -Needs out pt PFT and yearly screening CT - CT of chest - no lung nodule does show severe emphysema with pleural thickening Chronic coccyx wound -Wound care MS hx and wheel chair bound -From [facility] ANNELISE HOOVER DO May 31, 2018 08:08
[2018-05-31] MEDS ORDERED: methylPREDNISolone 40 MG/ML (Solu-MEDROL) VIAL IV SCH (09:00)
[2018-05-31] MEDS: PANTOPRAZOLE 40 MG (PROTONIX) TAB PO SCH (09:02)
[2018-05-31] MEDS: PREGABALIN 75 MG (LYRICA) CAP PO SCH (09:03)
[2018-05-31] MEDS: APIXABAN 5 MG (ELIQUIS) TABLET PO SCH ×2 (09:03→20:54)
[2018-05-31] MEDS: MEGESTROL ACETATE 400 MG/10 ML (MEGACE) UDC PO SCH (09:04)
[2018-05-31] MEDS: NICOTINE 21 MG (NICODERM) PATCH TD SCH (09:04)
[2018-05-31] MEDS: FAMOTIDINE 20 MG (PEPCID) TABLET PO SCH ×2 (09:04→20:55)
[2018-05-31] MEDS: guaiFENesin SYRUP 100 MG/5 ML 10 ML (ROBITUSSIN SF) PO SCH ×4 (09:04→20:54)
[2018-05-31] MEDS: ZINC SULFATE 220 MG CAPSULE PO SCH (09:04)
[2018-05-31] MEDS: MICONAZOLE 2% POWDER (DESENEX AF) 90 GM TOP SCH ×2 (09:04→20:54)
[2018-05-31] MEDS: MAGNESIUM OXIDE (MAG-OX)400 MG TAB PO SCH (09:05)
--- NOTE | 2018-05-31 09:49 | Cardiology Progress Note ---
Subjective Date Seen by Provider: May 31, 2018 Time Seen by Provider: 09:48 Subjective/Events-last exam patient is laying down in bed, no new complaint, denied any chest pain or shortness of breath Review of Systems General: No Chills, No Night Sweats, No Fatigue, No Malaise, No Appetite, No Other HEENT: No Head Aches, No Visual Changes, No Eye Pain, No Ear Pain, No Dysphasia , No Sinus Congestion, No Post Nasal Drip, No Sore Throat, No Other Pulmonary: No Dyspnea, No Cough, No Pleuritic Chest Pain, No Other Cardiovascular: No: Chest Pain, Palpitations, Orthopnea, Paroxysmal Noc. Dyspnea, Edema, Lt Headedness, Other Focused Exam Lactate Level 05/29/18 16:56: Lactic Acid Level 0.77 Objective-Cardiology Exam Last Set of Vital Signs Vital Signs 05/30/18 05/31/18 09:00 08:00 Temp 97.6 Pulse 74 Resp 18 B/P (MAP) 102/55 (71) Pulse Ox 99 O2 Delivery Nasal Cannula O2 Flow Rate 3.00 FiO2 95 Capillary Refill : Less Than 3 Seconds I&O Intake and Output 05/31/18 00:00 Intake Total 7150 ml Output Total 2175 ml Balance 4975 ml Intake Oral 1130 ml IV Total 6020 ml Output Urine Total 1500 ml Stool Total 675 ml Daily Weight Change Unsure General: Alert, Oriented X3, Cooperative HEENT: Atraumatic, PERRLA Neck: Supple, No JVD, No Thyromegaly Lungs: Other (bilat wheezing) Heart: Regular Rate, Normal S1, Normal S2 Abdomen: Soft, No Tenderness, No Masses Extremities: No Cyanosis, Other (+ 1 edema BLE) Skin: No Rashes, No Significant Lesion Neuro: Normal Speech Psych/Mental Status: Mental Status NL, Mood NL Results Lab Laboratory Tests 05/31/18 06:45 A/P-Cardiology Admission Diagnosis Sepsis Pneumonia Coronary artery disease Hypotension Assessment/Plan status post sepsis with hypotension and pneumonia, receiving antibiotic and managed by primary care team, improving. COPD, oxygen dependent, managed by Dr. Whitley Pulmonary nodule noted on chest x-ray, had CT scan of the chest, followed by Dr. Whitley Coronary artery disease, history of stent done in 2010, currently stable, no active chest pain. 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 History of MS, ischemic bowel and colostomy, continue to monitor at this time. 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 Jo and Dr. Ngo Clinical Quality Measures DVT/VTE Risk/Contraindication: Risk Factor Score Per Nursin RFS Level Per Nursing on Admit: 4+=Very High DORCAS VELIZ MD May 31, 2018 09:49
[2018-05-31] MEDS ORDERED: PREGABALIN 75 MG (LYRICA) CAP PO NR (11:00)
--- NOTE | 2018-05-31 11:09 | Progress Note-Hospitalist ---
Subjective HPI/CC On Admission Date Seen by Provider: May 31, 2018 Time Seen by Provider: 11:04 Chief complaint: Weakness with sepsis. HPI: This is a 67[facility] who [facility] [place], who has MS, and wheelchair bound, has a decubitus ulcer who presented to the [place] ER with sepsis and pneumonia considered severe sepsis by the time he arrived to [facility] so placed in the ICU, initiated aggressive IV fluids, and broad spectrum antibiotics, and Dr. Whitley was consulted. Pt is currently reporting a lot of pain so all home medications were restarted. Pt has a colostomy. Overall very irritated that his home pain medication has not been restarted so did that promptly and provided supportive care. Subjective/Events-last exam Patient reports these feeling better in regards to energy level and his blood pressure is coming up. His biggest complaint is burning stinging discomfort bilaterally in the lower extremities from the mid tibia down which is chronic and is been attributed to neuropathy from multiple sclerosis. He asked about increasing his Lyrica. He reports no side effects from Lyrica. He reports baseline cough and chest congestion with no purulent sputum production. He's had no chills or fever and denies chest pain. Focused Exam Lactate Level 05/29/18 16:56: Lactic Acid Level 0.77 Objective Exam Vital Signs Vital Signs Date Time Temp Pulse Resp B/P (MAP) Pulse Ox O2 Delivery O2 Flow Rate FiO2 05/31/18 10:56 93 Nasal Cannula 2.00 05/31/18 08:00 97.6 74 18 102/55 (71) 05/30/18 09:00 95 Capillary Refill : Less Than 3 Seconds General Appearance: No Apparent Distress, WD/WN, Chronically ill HEENT: PERRL/EOMI, Normal ENT Inspection, Pharynx Normal, Moist Mucous Membranes Neck: Full Range of Motion, Normal Inspection, Non Tender Respiratory: Chest Non Tender, No Accessory Muscle Use, No Respiratory Distress , Other (Diminished breath sounds posteriorly no rales or wheezing or rhonchi noted.) Cardiovascular: Regular Rate, Rhythm, No Edema, No Gallop, No JVD, No Murmur, Normal Peripheral Pulses Gastrointestinal: Normal Bowel Sounds, No Organomegaly, No Pulsatile Mass, Non Tender, Soft Back: Normal Inspection, No CVA Tenderness, No Vertebral Tenderness Extremity: Normal Capillary Refill, Normal Inspection, Normal Range of Motion ( limited ROM lower extremities), Other (Mild pedal edema is present there is hip esthesia of the lower extremities no evidence for ulceration is present.) Neurologic/Psychiatric: Alert, Oriented x3, Motor Weakness (lower extremities) Skin: Normal Color, Warm/Dry Lymphatic: No Adenopathy Results/Procedures Lab Laboratory Tests 05/31/18 06:45 Patient resulted labs reviewed. Assessment/Plan Assessment and Plan Assess & Plan/Chief Complaint 1. Hypotension episode questionable sepsis questionable diagnosis of pneumonia considering CT scanning did not reveal evidence for infiltrate but findings compatible with significant emphysematous COPD with scarring. 2. Possible [place]'s disease with adrenal crisis considering improvement on steroid therapy and mild hyponatremia and hypokalemia on admission which has resolved. Random cortisol level pending at the time this dictation continue steroids. 3. Multiple sclerosis with bilateral hemiparesis long-standing. 4. Peripheral neuropathy possibly due to number 3 we will increase Lyrica to 300 mg 3 times a day but he was told this was maximum dose. Other strategies for mitigating peripheral neuropathy discomfort keeping the covers off feet etc. were discussed. 5. Stage IV sacral decubitus treatment per wound care discussed the importance of keeping pillows under his calves to reduce heel ulceration risk as he refuses to wear heel protectors. Pillow placed back under calves which the patient tolerated without difficulty. Clinical Quality Measures DVT/VTE Risk/Contraindication: Risk Factor Score Per Nursin RFS Level Per Nursing on Admit: 4+=Very High LEW ACLANTAR MD May 31, 2018 11:09
[2018-05-31] MEDS: PREGABALIN 100 MG (LYRICA) CAPSULE PO SCH ×2 (13:21→21:07)
[2018-05-31] MEDS: FLUTICASONE NASAL SPRAY (FLONASE) 16 GM BTL NS SCH (14:12)
[2018-05-31] MEDS: GENTAMICIN 0.3% OPHTH SOLN 5 ML EACH EAR SCH ×2 (14:12→20:57)
--- NOTE | 2018-05-31 14:28 | NUR ---
NO MEDICATIONS SCANNED IN ROOM, MONITOR NOT WORKING AND SCANNER NOT WORKING. THIS RN ATTEMPTED TO SCAN MEDS FROM OUTSIDE COMPUTER. MEDICATIONS VERIFIED AND DOUBLE CHECKED BY THIS RN.
--- NOTE | 2018-05-31 15:50 | NUR ---
PT'S IV SITE IN LEFT FOREARM INFILTRATED, WARM COMPRESS APPLIED. THIS RN ATTEMPTED NEW IV X 3 STICKS, WITH NO SUCCESS. Bahman HINKLE RN ATTEMPTED X [address] ALCANTAR NOTIFIED NEW ORDERS RECEIVED TO CHANGE ABX TO OMNICEF 300 MG PO BID, ORDERS READ BACK AND VERIFIED.
[2018-05-31] MEDS: QUEtiapine 25 MG (SEROquel) TAB IMMEDIATE RELEASE PO SCH (20:55)
[2018-05-31] MEDS: CEFDINIR 300 MG (OMNICEF) CAP PO SCH (20:55)
[2018-05-31] MEDS: ALPRAZolam 0.5 MG (XANAX) TAB PO SCH (20:55)
[2018-05-31] MEDS: TAMSULOSIN 0.4 MG (FLOMAX) CAP PO SCH (20:55)
[2018-06-01] VITALS (7 sets, daily range): BP systolic 93–120; BP diastolic 50–71
[2018-06-01 05:27] LABS: ALANINE AMINOTRANSFERASE 40 U/L (0-55); ALKALINE PHOSPHATASE 67 U/L (40-136); BILIRUBIN,TOTAL 0.2 MG/DL (0.1-1.0); BUN/CREATININE RATIO 23; CALCIUM 8.1 MG/DL (8.5-10.1); CARBON DIOXIDE 24 MMOL/L (21-32); CHLORIDE 109 MMOL/L (98-107); CREATININE SERUM 1.11 MG/DL (0.60-1.30); GFR ESTIMATED > 60; GLUCOSE 106 MG/DL (70-105); POTASSIUM 3.7 MMOL/L (3.6-5.0); SODIUM 141 MMOL/L (135-145); TOTAL PROTEIN 5.4 GM/DL (6.4-8.2)
[2018-06-01] MEDS: predniSONE 20 MG TAB PO SCH (06:11)
[2018-06-01] MEDS: MULTIVIT W/MINERALS TAB (THERAGRAN M) PO SCH (06:11)
[2018-06-01] MEDS: morphine ER 30 MG (MS CONTIN) TAB PO SCH ×3 (06:11→21:08)
[2018-06-01] MEDS: CATHETER FLUSH 10 ML SYR IV SCH ×3 (06:12→20:28)
[2018-06-01] MEDS: PREGABALIN 100 MG (LYRICA) CAPSULE PO SCH ×3 (06:15→21:09)
[2018-06-01] MEDS: MAGNESIUM OXIDE (MAG-OX)400 MG TAB PO SCH (08:26)
[2018-06-01] MEDS: CEFDINIR 300 MG (OMNICEF) CAP PO SCH ×2 (08:26→20:26)
[2018-06-01] MEDS: MEGESTROL ACETATE 400 MG/10 ML (MEGACE) UDC PO SCH (08:26)
[2018-06-01] MEDS: NICOTINE 21 MG (NICODERM) PATCH TD SCH (08:26)
[2018-06-01] MEDS: APIXABAN 5 MG (ELIQUIS) TABLET PO SCH ×2 (08:26→20:26)
[2018-06-01] MEDS: guaiFENesin SYRUP 100 MG/5 ML 10 ML (ROBITUSSIN SF) PO SCH ×4 (08:27→20:26)
[2018-06-01] MEDS: FAMOTIDINE 20 MG (PEPCID) TABLET PO SCH ×2 (08:27→20:26)
[2018-06-01] MEDS: PANTOPRAZOLE 40 MG (PROTONIX) TAB PO SCH (08:27)
[2018-06-01] MEDS: ZINC SULFATE 220 MG CAPSULE PO SCH (08:27)
[2018-06-01] MEDS: MICONAZOLE 2% POWDER (DESENEX AF) 90 GM TOP SCH ×2 (08:32→20:27)
[2018-06-01] MEDS: FLUTICASONE NASAL SPRAY (FLONASE) 16 GM BTL NS SCH (08:33)
[2018-06-01] MEDS: GENTAMICIN 0.3% OPHTH SOLN 5 ML EACH EAR SCH ×2 (09:28→20:27)
--- NOTE | 2018-06-01 09:52 | Cardiology Progress Note ---
Subjective Date Seen by Provider: Jun 01, 2018 Time Seen by Provider: 09:50 Subjective/Events-last exam patient is in bed, feeling better. No new complaint Review of Systems General: No Chills, No Night Sweats, No Fatigue, No Malaise, No Appetite, No Other HEENT: No Head Aches, No Visual Changes, No Eye Pain, No Ear Pain, No Dysphasia , No Sinus Congestion, No Post Nasal Drip, No Sore Throat, No Other Pulmonary: No Dyspnea, No Cough, No Pleuritic Chest Pain, No Other Cardiovascular: No: Chest Pain, Palpitations, Orthopnea, Paroxysmal Noc. Dyspnea, Edema, Lt Headedness, Other Focused Exam Lactate Level 05/29/18 16:56: Lactic Acid Level 0.77 Objective-Cardiology Exam Last Set of Vital Signs Vital Signs 05/31/18 06/01/18 06/01/18 14:03 04:34 08:30 Temp 98.3 Pulse 69 Resp 16 B/P (MAP) 93/50 (64) Pulse Ox 97 O2 Delivery Nasal Cannula O2 Flow Rate 3.00 FiO2 28 Capillary Refill : Less Than 3 Seconds I&O Intake and Output 06/01/18 00:00 Intake Total 5840 ml Output Total 2500 ml Balance 3340 ml Intake Oral 1830 ml IV Total 4010 ml Output Urine Total 1575 ml Stool Total 925 ml General: Alert, Oriented X3, Cooperative HEENT: Atraumatic, PERRLA Neck: Supple, No JVD, No Thyromegaly Lungs: Other (bilat wheezing) Heart: Regular Rate, Normal S1, Normal S2 Abdomen: Soft, No Tenderness, No Masses Extremities: No Cyanosis, Other (+ 1 edema BLE) Skin: No Rashes, No Significant Lesion Neuro: Normal Speech Psych/Mental Status: Mental Status NL, Mood NL Results Lab Laboratory Tests 06/01/18 04:25 A/P-Cardiology Admission Diagnosis Sepsis Pneumonia Coronary artery disease Hypotension Assessment/Plan status post sepsis with hypotension and pneumonia, better at this time, managed by primary care team COPD, oxygen dependent, managed by Dr. Whitley Pulmonary nodule noted on chest x-ray, had CT scan of the chest, followed by Dr. Whitley Coronary artery disease, history of stent done in 2010, currently stable, no active chest pain. 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 History of MS, ischemic bowel and colostomy, continue to monitor at this time. 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 Jo and Dr. Ngo Clinical Quality Measures DVT/VTE Risk/Contraindication: Risk Factor Score Per Nursin RFS Level Per Nursing on Admit: 4+=Very High DORCAS VELIZ MD Jun 01, 2018 09:52
[2018-06-01] MEDS: IBUPROFEN TABLET 200 MG TAB PO PRN (10:05)
[2018-06-01] MEDS: RT-ALBUTEROL/IPRATROPIUM 3 ML (DUONEB) VIAL INH SCH ×4 (10:38→19:33)
[2018-06-01] MEDS: AMIODARONE 200 MG (CORDARONE) TAB PO SCH ×2 (11:00→23:24)
--- NOTE | 2018-06-01 11:11 | Pulmonary Progress Note ---
Subjective Time Seen by a Provider: 11:11 Subjective/Events-last exam No complications noted. Sepsis Event Evaluation Height, Weight, BMI Height: 5'8.00" Weight: 140lbs. 12.8oz. 63.152600xs; 21.0 BMI Method:Stated Focused Exam Lactate Level 05/29/18 16:56: Lactic Acid Level 0.77 Exam Exam Vital Signs Date Time Temp Pulse Resp B/P (MAP) Pulse Ox O2 Delivery O2 Flow Rate FiO2 06/01/18 11:01 96 Nasal Cannula 2.00 06/01/18 08:30 Nasal Cannula 3.00 06/01/18 08:00 97.9 67 18 111/68 (82) 97 Nasal Cannula 3.00 06/01/18 04:34 98.3 69 16 93/50 (64) 97 Nasal Cannula 2.00 06/01/18 00:34 98.6 77 18 107/56 (73) 96 Nasal Cannula 3.00 05/31/18 20:50 Nasal Cannula 3.00 05/31/18 20:00 98.4 74 18 111/59 (76) 96 Nasal Cannula 3.00 05/31/18 19:24 96 Nasal Cannula 2.00 05/31/18 16:00 98.1 76 18 132/69 (90) 96 Nasal Cannula 3.00 05/31/18 15:38 96 Nasal Cannula 2.00 05/31/18 14:03 74 93 28 05/31/18 12:00 98.0 69 18 132/83 (99) 97 Nasal Cannula 3.00 I & O 06/01/18 07:00 Intake Total 6220 ml Output Total 2750 ml Balance 3470 ml Height & Weight Height: 5'8.00" Weight: 140lbs. 12.8oz. 63.995050aq; 21.0 BMI Method:Stated General Appearance: No Apparent Distress, WD/WN, Chronically ill HEENT: PERRL/EOMI, Normal ENT Inspection, Pharynx Normal, Moist Mucous Membranes Neck: Full Range of Motion, Normal Inspection, Non Tender Respiratory: Chest Non Tender, No Accessory Muscle Use, No Respiratory Distress , Other (Diminished breath sounds posteriorly no rales or wheezing or rhonchi noted.) Cardiovascular: Regular Rate, Rhythm, No Edema, No Gallop, No JVD, No Murmur, Normal Peripheral Pulses Capillary Refill: Less Than 3 Seconds Extremity: Normal Capillary Refill, Normal Inspection, Normal Range of Motion ( limited ROM lower extremities), Other (Mild pedal edema is present there is hip esthesia of the lower extremities no evidence for ulceration is present.) Neurologic/Psychiatric: Alert, Oriented x3, Motor Weakness (lower extremities) Skin: Normal Color, Warm/Dry Lymphatic: No Adenopathy Results Lab Laboratory Tests 05/31/18 06:45 06/01/18 04:25 Assessment/Plan Assessment/Plan Sepsis- resolving -Omnicef -Pitts cultures neg thus far -Influenza neg Severe COPD oxygen dependent -Pt uses 3 liters at [facility] C02 is 46 -Needs out pt PFT and yearly screening CT - CT of chest - no lung nodule does show severe emphysema with pleural thickening Chronic coccyx wound -Wound care MS hx and wheel chair bound -From [facility] ANNELISE HOOVER DO Jun 01, 2018 11:11
--- NOTE | 2018-06-01 12:14 | Progress Note-Hospitalist ---
Subjective HPI/CC On Admission Date Seen by Provider: Jun 01, 2018 Time Seen by Provider: 12:08 Chief complaint: Weakness with sepsis. HPI: This is a 67[facility]WM who [facility] [place], who has MS, and wheelchair bound, has a decubitus ulcer who presented to the [place] ER with sepsis and pneumonia considered severe sepsis by the time he arrived to [facility] so placed in the ICU, initiated aggressive IV fluids, and broad spectrum antibiotics, and Dr. Whitley was consulted. Pt is currently reporting a lot of pain so all home medications were restarted. Pt has a colostomy. Overall very irritated that his home pain medication has not been restarted so did that promptly and provided supportive care. Subjective/Events-last exam Other than the fact that the patient's MS Contin was held this morning because his systolic pressure was 98 while he was sleeping at 6 a.m. and he is now hurting at 9 o'clock a.m. he voices no other complaints. Apparently there was an order to hold MS Contin for systolic pressure less than 110. This is subsequently been changed to 90. He reports his energy level has improved he's had no lightheadedness and reports diminishing cough and minimal sputum production so far today. He's had no night sweats chills or fever. Focused Exam Lactate Level 05/29/18 16:56: Lactic Acid Level 0.77 Objective Exam Vital Signs Vital Signs Date Time Temp Pulse Resp B/P (MAP) Pulse Ox O2 Delivery O2 Flow Rate FiO2 06/01/18 11:01 96 Nasal Cannula 2.00 06/01/18 08:00 97.9 67 18 111/68 (82) 05/31/18 14:03 28 Capillary Refill : Less Than 3 Seconds General Appearance: No Apparent Distress, WD/WN, Chronically ill HEENT: PERRL/EOMI, Normal ENT Inspection, Pharynx Normal, Moist Mucous Membranes Neck: Full Range of Motion, Normal Inspection, Non Tender Respiratory: Chest Non Tender, No Accessory Muscle Use, No Respiratory Distress , Other (Diminished breath sounds posteriorly there are a few scattered rhonchi without wheezing no focal consolidative findings are noted.) Cardiovascular: Regular Rate, Rhythm, No Edema, No Gallop, No JVD, No Murmur, Normal Peripheral Pulses Gastrointestinal: Normal Bowel Sounds, No Organomegaly, No Pulsatile Mass, Non Tender, Soft Back: Normal Inspection, No CVA Tenderness, No Vertebral Tenderness Extremity: Normal Capillary Refill, Normal Inspection, Normal Range of Motion ( limited ROM lower extremities), Other (Mild pedal edema is present there is hip esthesia of the lower extremities no evidence for ulceration is present.) Neurologic/Psychiatric: Alert, Oriented x3, Motor Weakness (lower extremities) Skin: Normal Color, Warm/Dry Lymphatic: No Adenopathy Results/Procedures Lab Laboratory Tests 06/01/18 04:25 Patient resulted labs reviewed. Assessment/Plan Assessment and Plan Assess & Plan/Chief Complaint 1. Hypotension episode questionable sepsis questionable diagnosis of pneumonia considering CT scanning did not reveal evidence for infiltrate but findings compatible with significant emphysematous COPD with scarring. Patient was very difficult stick and lost his IV site yesterday so was switched to Omnicef 300 mg twice a day and appears to be doing well with this. 2. 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 Random cortisol level pending at the time this dictation. He was switched to 40 mg of prednisone by mouth which she received this morning we'll decrease to 30 mg. If his cortisol level was noted to be low or well within normal limits would consider him to be adrenally insufficient and would consider switch to a.m. and p.m. hydrocortisone indefinitely. If his level is high he could likely be tapered off of steroids. 3. Multiple sclerosis with bilateral hemiparesis long-standing. 4. Peripheral neuropathy possibly due to number 3 we will increase Lyrica to 300 mg 3 times a day but he was told this was maximum dose. Other strategies for mitigating peripheral neuropathy discomfort keeping the covers off feet etc. were discussed. 5. Stage IV sacral decubitus treatment per wound care discussed the importance of keeping pillows under his calves to reduce heel ulceration risk as he refuses to wear heel protectors. Pillow placed back under calves which the patient tolerated without difficulty. Clinical Quality Measures DVT/VTE Risk/Contraindication: Risk Factor Score Per Nursin RFS Level Per Nursing on Admit: 4+=Very High LEW ALCANTAR MD Jun 01, 2018 12:14
--- NOTE | 2018-06-01 18:17 | NUR ---
Computer down in pt room. Verified meds and pt ID with another RN.
[2018-06-01] MEDS: TAMSULOSIN 0.4 MG (FLOMAX) CAP PO SCH (20:26)
[2018-06-01] MEDS: QUEtiapine 25 MG (SEROquel) TAB IMMEDIATE RELEASE PO SCH (20:27)
[2018-06-01] MEDS: ALPRAZolam 0.5 MG (XANAX) TAB PO SCH (20:27)
[2018-06-02 04:55] VITALS: BP 118/71
[2018-06-02 05:25] LABS: ALANINE AMINOTRANSFERASE 76 U/L (0-55); ALKALINE PHOSPHATASE 77 U/L (40-136); BILIRUBIN,TOTAL 0.3 MG/DL (0.1-1.0); BUN/CREATININE RATIO 18; CALCIUM 8.2 MG/DL (8.5-10.1); CARBON DIOXIDE 23 MMOL/L (21-32); CHLORIDE 111 MMOL/L (98-107); CREATININE SERUM 1.05 MG/DL (0.60-1.30); GFR ESTIMATED > 60; GLUCOSE 95 MG/DL (70-105); POTASSIUM 3.9 MMOL/L (3.6-5.0); SODIUM 144 MMOL/L (135-145); TOTAL PROTEIN 5.3 GM/DL (6.4-8.2)
[2018-06-02] MEDS: CATHETER FLUSH 10 ML SYR IV SCH (06:00)
[2018-06-02] MEDS: predniSONE 20 MG TAB PO SCH (06:45)
[2018-06-02] MEDS: MULTIVIT W/MINERALS TAB (THERAGRAN M) PO SCH (06:45)
[2018-06-02] MEDS: PREGABALIN 100 MG (LYRICA) CAPSULE PO SCH (06:45)
[2018-06-02] MEDS: morphine ER 30 MG (MS CONTIN) TAB PO SCH (06:45)
--- NOTE | 2018-06-02 06:58 | Pulmonary Progress Note ---
Subjective Time Seen by a Provider: 06:57 Subjective/Events-last exam No complications noted. Sepsis Event Evaluation Height, Weight, BMI Height: 5'8.00" Weight: 137lbs. 1.0oz. 62.566138bx; 21.0 BMI Method:Stated Exam Exam Vital Signs Date Time Temp Pulse Resp B/P (MAP) Pulse Ox O2 Delivery O2 Flow Rate FiO2 06/02/18 04:55 97.3 59 16 118/71 (87) 97 Nasal Cannula 2.00 06/01/18 23:40 97.8 70 16 110/69 (83) 96 Nasal Cannula 2.00 06/01/18 20:40 Nasal Cannula 2.00 06/01/18 20:00 98.0 73 16 120/64 (82) 97 Nasal Cannula 3.00 06/01/18 19:34 96 Nasal Cannula 2.00 06/01/18 16:00 98.6 77 18 117/71 (86) 93 Nasal Cannula 3.00 06/01/18 14:48 95 Nasal Cannula 2.00 06/01/18 12:00 98.0 65 18 105/65 (78) 99 Nasal Cannula 3.00 06/01/18 11:01 96 Nasal Cannula 2.00 06/01/18 08:30 Nasal Cannula 3.00 06/01/18 08:00 97.9 67 18 111/68 (82) 97 Nasal Cannula 3.00 I & O 06/02/18 07:00 Intake Total 2800 ml Output Total 3650 ml Balance -850 ml Height & Weight Height: 5'8.00" Weight: 137lbs. 1.0oz. 62.996957ym; 21.0 BMI Method:Stated General Appearance: No Apparent Distress, WD/WN, Chronically ill HEENT: PERRL/EOMI, Normal ENT Inspection, Pharynx Normal, Moist Mucous Membranes Neck: Full Range of Motion, Normal Inspection, Non Tender Respiratory: Chest Non Tender, No Accessory Muscle Use, No Respiratory Distress , Other (Diminished breath sounds posteriorly there are a few scattered rhonchi without wheezing no focal consolidative findings are noted.) Cardiovascular: Regular Rate, Rhythm, No Edema, No Gallop, No JVD, No Murmur, Normal Peripheral Pulses Capillary Refill: Less Than 3 Seconds Extremity: Normal Capillary Refill, Normal Inspection, Normal Range of Motion ( limited ROM lower extremities), Other (Mild pedal edema is present there is hip esthesia of the lower extremities no evidence for ulceration is present.) Neurologic/Psychiatric: Alert, Oriented x3, Motor Weakness (lower extremities) Skin: Normal Color, Warm/Dry Lymphatic: No Adenopathy Results Lab Laboratory Tests 06/01/18 04:25 06/02/18 04:35 Assessment/Plan Assessment/Plan Sepsis- resolving -Omnicef -Pitts cultures neg thus far -Influenza neg Severe COPD oxygen dependent -Pt uses 3 liters at [facility]CF -SVNs -ABG C02 is 46 -Needs out pt PFT and yearly screening CT - CT of chest - no lung nodule does show severe emphysema with pleural thickening Chronic coccyx wound -Wound care MS hx and wheel chair bound -From ECF Pt is ok from pulmonary standpoint for discharge. ANNELISE HOOVER DO Jun 02, 2018 06:58
--- NOTE | 2018-06-02 07:48 | NUR ---
SPO2 87% ON ROOM AIR @ REST. REPLACED O2 @ 2 LPM. SPO2 INCREASED TO 90%. Addendum: 06/02/18 at 0806 by IZZY STAHL RT Amended: Links added.
[2018-06-02 08:00] VITALS: BP 109/66
[2018-06-02] MEDS: RT-ALBUTEROL/IPRATROPIUM 3 ML (DUONEB) VIAL INH SCH ×2 (08:03→11:52)
--- NOTE | 2018-06-02 09:13 | Cardiology Progress Note ---
Subjective Date Seen by Provider: Jun 02, 2018 Time Seen by Provider: 09:08 Subjective/Events-last exam Patient is in bed, feeling better, asking to go home Review of Systems General: No Chills, No Night Sweats, No Fatigue, No Malaise, No Appetite, No Other HEENT: No Head Aches, No Visual Changes, No Eye Pain, No Ear Pain, No Dysphasia , No Sinus Congestion, No Post Nasal Drip, No Sore Throat, No Other Pulmonary: Dyspnea; No Cough, No Pleuritic Chest Pain, No Other Cardiovascular: No: Chest Pain, Palpitations, Orthopnea, Paroxysmal Noc. Dyspnea, Edema, Lt Headedness, Other Objective-Cardiology Exam Last Set of Vital Signs Vital Signs 05/31/18 06/02/18 06/02/18 14:03 04:55 08:03 Temp 97.3 Pulse 59 Resp 16 B/P (MAP) 118/71 (87) Pulse Ox 90 O2 Delivery Nasal Cannula O2 Flow Rate 2.00 FiO2 28 Capillary Refill : Less Than 3 Seconds I&O Intake and Output 06/02/18 00:00 Intake Total 3190 ml Output Total 3400 ml Balance -210 ml Intake Oral 3190 ml Output Urine Total 1700 ml Stool Total 1700 ml General: Alert, Oriented X3, Cooperative HEENT: Atraumatic, PERRLA Neck: Supple, No JVD, No Thyromegaly Lungs: Other (bilat wheezing) Heart: Regular Rate, Normal S1, Normal S2 Abdomen: Soft, No Tenderness, No Masses Extremities: No Cyanosis, Other (+ 1 edema BLE) Skin: No Rashes, No Significant Lesion Neuro: Normal Speech Psych/Mental Status: Mental Status NL, Mood NL Results Lab Laboratory Tests 06/02/18 04:35 A/P-Cardiology Admission Diagnosis Sepsis Pneumonia Coronary artery disease Hypotension Assessment/Plan Status post sepsis with hypotension and pneumonia, better at this time, managed by primary care team COPD, oxygen dependent, managed by Dr. Whitley Pulmonary nodule noted on chest x-ray, had CT scan of the chest, followed by Dr. Whitley Coronary artery disease, history of stent done in 2010, currently stable, no active chest pain. 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 History of MS, ischemic bowel and colostomy, continue to monitor at this time. No changes are recommended Primary collections officer in [place], Dr. Jo and Dr. Jeni Escoto for discharge from cardiology standpoint Clinical Quality Measures DVT/VTE Risk/Contraindication: Risk Factor Score Per Nursin RFS Level Per Nursing on Admit: 4+=Very High DORCAS VELIZ MD Jun 02, 2018 09:13
[2018-06-02] MEDS: ZINC SULFATE 220 MG CAPSULE PO SCH (09:57)
[2018-06-02] MEDS: MAGNESIUM OXIDE (MAG-OX)400 MG TAB PO SCH (09:57)
[2018-06-02] MEDS: APIXABAN 5 MG (ELIQUIS) TABLET PO SCH (09:58)
[2018-06-02] MEDS: PANTOPRAZOLE 40 MG (PROTONIX) TAB PO SCH (09:58)
[2018-06-02] MEDS: NICOTINE 21 MG (NICODERM) PATCH TD SCH (09:58)
[2018-06-02] MEDS: CEFDINIR 300 MG (OMNICEF) CAP PO SCH (09:58)
[2018-06-02] MEDS: MEGESTROL ACETATE 400 MG/10 ML (MEGACE) UDC PO SCH (09:58)
[2018-06-02] MEDS: GENTAMICIN 0.3% OPHTH SOLN 5 ML EACH EAR SCH (09:58)
[2018-06-02] MEDS: FAMOTIDINE 20 MG (PEPCID) TABLET PO SCH (09:58)
[2018-06-02] MEDS: FLUTICASONE NASAL SPRAY (FLONASE) 16 GM BTL NS SCH (09:59)
[2018-06-02] MEDS: MICONAZOLE 2% POWDER (DESENEX AF) 90 GM TOP SCH (09:59)
[2018-06-02] MEDS: guaiFENesin SYRUP 100 MG/5 ML 10 ML (ROBITUSSIN SF) PO SCH ×2 (10:02→13:28)
--- NOTE | 2018-06-02 10:53 | Discharge Inst-Simple/Standard ---
Discharge Inst-Standard Discharge Medications New, Converted or Re-Newed RX: Transmitted to Pharmacy Patient Instructions/Follow Up Plan of Care/Instructions/FU: Please continue to take your medications as written. Please follow up with Dr Hernandez and Dr Whitley. Activity as Tolerated: Yes Discharge Diet: No Restrictions Return to The Hospital For: Shortness of breath, worsening cough or fever, confusion, if you feel you are getting worse. ROZ WILKINS MD Jun 02, 2018 10:53
[2018-06-02] MEDS ORDERED: PRD20T PO (10:59)
[2018-06-02] MEDS ORDERED: CEFD300C3 PO (10:59)
--- NOTE | 2018-06-02 11:05 | Discharge Summary-Hospitalist ---
Diagnosis/Chief Complaint Date of Admission May 27, 2018 at 19:36 Date of Discharge Discharge Date: Jun 02, 2018 Admission Diagnosis Assessment: Severe Sepsis Hypotension Pneumonia COPD oxygen dependent Lung nodule per CXR Chronic coccyx wound MS hx and wheel chair bound Chronic pain Smoker Colostomy plan: Abx Home meds Pain meds Monitor labs Consult Dr Keyes Discharge Diagnosis (1) Hypotension Status: Acute (2) Right middle lobe pulmonary infiltrate Status: Acute (3) Severe sepsis Status: Acute (4) Multiple sclerosis Status: Chronic (5) Wheelchair dependence Status: Chronic (6) Smoker Status: Chronic (7) Chronic pain Status: Chronic (8) Atrial fibrillation Status: Chronic (9) COPD with exacerbation Status: Acute (10) Fever and chills Status: Resolved (11) Wheezing Status: Acute Discharge Summary Procedures/Consulations Dr Whitley- Pulm Dr Cabrera- Wound Care Dr Keyes-Cardiology Discharge Physical Exam Allergies: Coded Allergies: No Known Drug Allergies (Unverified , 05/27/18) Vitals & I&Os Vital Signs Date Time Temp Pulse Resp B/P (MAP) Pulse Ox O2 Delivery O2 Flow Rate FiO2 06/02/18 11:52 96 Nasal Cannula 2.00 06/02/18 08:00 98.7 76 18 109/66 (80) 05/31/18 14:03 28 General Appearance: No Apparent Distress, Chronically ill Respiratory: Lungs Clear, No Respiratory Distress Cardiovascular: Regular Rate, Rhythm, No Murmur Hospital Course Pt was admitted to the ICU for severe sepsis due to right sided pneumonia. He was treated with broad spectrum antibiotics and did well. He was seen in consultation by Dr Cabrera for a decubitus ulcer that was present on admission and by Dr Whitley. He was found to have a 2lpm continuous oxygen requirement which was arranged prior to discharge. He was transitioned to cefdinir to complete his antibiotic course. He was discharged back to his assisted living facility in stable condition. Labs (last 24 hrs) Laboratory Tests 06/01/18 15:57: Glucometer 158H 06/01/18 20:47: Glucometer 141H 06/02/18 04:35: Sodium Level 144, Potassium Level 3.9, Chloride Level 111H, Carbon Dioxide Level 23, Anion Gap 10, Blood Urea Nitrogen 19H, Creatinine 1.05, Estimat Glomerular Filtration Rate > 60, BUN/Creatinine Ratio 18, Glucose Level 95, Calcium Level 8.2L, Corrected Calcium 9.0, Total Bilirubin 0.3, Aspartate Amino Transf (AST/SGOT) 60H, Alanine Aminotransferase (ALT/SGPT) 76H, Alkaline Phosphatase 77, Total Protein 5.3L, Albumin 3.0L 06/02/18 09:59: Glucometer 144H Microbiology 05/27/18 Blood Culture - Preliminary, Resulted No growth 05/28/18 Gram Stain - Final, Complete 05/28/18 Sputum Culture - Final, Complete Patient resulted labs reviewed. Pending Labs Laboratory Tests 06/02/18 09:59: Glucometer 144 Discussion & Recommendations Discharge Planning: >30 minutes discharge planning Discharge Home Medications: Active Scripts Active Prednisone 20 Mg Tab 40 Mg PO DAILY@0700 Cefdinir 300 Mg Capsule 300 Mg PO BID Reported Magnesium (Magnesium Oxide) 400 Mg Tablet 400 Mg PO DAILY Guaifenesin 400 Mg Tablet 400 Mg PO QID Nystatin 15 Gm Powder TOP TID APPLY TO THIGHS AND GROIN UNTIL CLEAR Fluticasone Propionate 16 Gm [place].susp 2 Sprays NS DAILY Zinc (Zinc Gluconate) 30 Mg Tablet 30 Mg PO DAILY Multivitamins (Multivitamin) 1 Each Tablet 1 Tab PO DAILY Megestrol Acetate 400 Mg/10 Ml Oral.susp 5 Ml PO DAILY [Alcohol/Vinegar] 4 Drops EACH EAR PRN PRN ALCOHOL/WHITE VINEGAR EQUAL PARTS Nystatin-Triamcinolone Ointm (Nystatin/Triamcinolone) 15 Gm Oint TP BID PRN Ibu (Ibuprofen) 400 Mg Tablet 400 Mg PO TID PRN Tylenol Extra Strength (Acetaminophen) 500 Mg Tablet 500 Mg PO Q6H PRN Tea Tree (Tea Tree Oil) 1 Ml Oil 4 Drop EACH EAR BID PRN Zofran (Ondansetron HCl) 4 Mg Tab 4 Mg PO Q4H PRN Iprat-Albut 0.5-3(2.5) mg/3 ml (Ipratropium/Albuterol Sulfate) 3 Ml Ampul.neb 3 Ml NEB Q6H PRN Lyrica (Pregabalin) 225 Mg Capsule 225 Mg PO TID Alprazolam 0.5 Mg Tablet 0.5 Mg PO HS Morphine Sulfate ER (Morphine Sulfate) 30 Mg Tablet.er 30 Mg PO 0600,1400,2200 Flomax (Tamsulosin HCl) 0.4 Mg Cap 0.8 Mg PO HS TAKES 2 (0.4MG) CAPSULES Eliquis (Apixaban) 5 Mg Tablet 5 Mg PO BID Quetiapine Fumarate 50 Mg Tablet 50 Mg PO HS Citalopram HBr (Citalopram Hydrobromide) 20 Mg Tablet 20 Mg PO DAILY Famotidine 20 Mg Tablet 20 Mg PO BID Amiodarone HCl 200 Mg Tablet 200 Mg PO Q12H Gentamicin Sulfate 5 Ml Drops 3 Drop OT BID 7 Days INSTILL INTO ITCHING EAR TWICE DAILY X 7 DAYS START DATE 05-26-18 Tramadol HCl 50 Mg Tablet 100 Mg PO Q6H PRN Instructions to patient/family Please see electronic discharge instructions given to patient. Clinical Quality Measures DVT/VTE Risk/Contraindication: Risk Factor Score Per Nursin RFS Level Per Nursing on Admit: 4+=Very High Problem Qualifiers (1) Chronic pain: Chronic pain type: chronic pain syndrome Qualified Codes: G89.4 - Chronic pain syndrome (2) Atrial fibrillation: Atrial fibrillation type: chronic Qualified Codes: I48.2 - Chronic atrial fibrillation ROZ WILKINS MD Jun 02, 2018 11:05
--- NOTE | 2018-06-02 11:16 | NUR ---
CM/SS spoke with Jeannie in [facility] ([phone]) and they will transport the patient this day in the afternoon. They will bring portable oxygen for the patient. Updated the patient and RNing.
--- NOTE | 2018-06-02 11:50 | NUR ---
Important Message from Medicare presented/reviewed/signed by patient and charted. Patient voiced no intention to appeal and deny any needs or further questions at this time.
[2018-06-02] MEDS: AMIODARONE 200 MG (CORDARONE) TAB PO SCH (12:15)
[2018-06-02 13:32] VITALS: BP 109/66
== END 2018-06-02 13:35 | disposition home health service (06) | DRG 871 ==
LOC: EDUNIT# 17:22 → ER FS 17:23 → ICU 19:36 → 4TH 05-28 09:50
PROVIDERS: ADMIT Internal Medicine; ATTEND Internal Medicine
DX: A41.9 Sepsis, unspecified organism (principal); R65.20 Severe sepsis without septic shock; J18.1 Lobar pneumonia, unspecified organism; L89.154 Pressure ulcer of sacral region, stage 4; J43.9 Emphysema, unspecified; E87.1 Hypo-osmolality and hyponatremia; G35 Multiple sclerosis; G81.91 Hemiplegia, unspecified affecting right dominant side; G81.94 Hemiplegia, unspecified affecting left nondominant side; G62.9 Polyneuropathy, unspecified; E87.6 Hypokalemia; E83.42 Hypomagnesemia; I25.10 Atherosclerotic heart disease of native coronary artery without angina pectoris; I48.0 Paroxysmal atrial fibrillation; R91.1 Solitary pulmonary nodule; G89.4 Chronic pain syndrome; F17.210 Nicotine dependence, cigarettes, uncomplicated; Z99.81 Dependence on supplemental oxygen; Z95.5 Presence of coronary angioplasty implant and graft; Z86.718 Personal history of other venous thrombosis and embolism; Z86.711 Personal history of pulmonary embolism; Z79.01 Long term (current) use of anticoagulants; Z93.3 Colostomy status; Z99.3 Dependence on wheelchair; Z87.19 Personal history of other diseases of the digestive system
CPT/HCPCS: 36415; 71045; 71260; 72195; 80053; 81000; 82533; 82805; 82962; 83605; 83735; 83880; 84100; 85007; 85025; 85027; 85610; 85730; 87040; 87081; 87205; 87804; 93306; 94640; 94760; 94761; 96361; 96374; 96375; 99291

== ENCOUNTER 2018-07-11 10:15 | Emergency (ER) | payer MEDICARE, MEDICAID ==
[~2018-07-11] VITALS: Ht 172.7 cm; Wt 62.6 kg
[~2018-07-11 10:15] MED LIST: ACET-2267 PO; ALPR0.5T7 PO; AMIO200T4 PO; APIX5TAB PO; CEFD300C3 PO; CITA20TA9 PO; FAMO20TA5 PO; FLUT16SP22 NS; GENT5DRO30 OT; GUAI400T71 PO; IPRA3AMP31 NEB; MAGN400T39 PO; MEGE400O21 PO; MORP-34 PO; MULT1TAB69 PO; NSTR15O TP; NYST15PO4 TOP; ONDN4T PO; PRD20T PO; PREG225C PO; QUET50TA55 PO; TAMS0.4C98 PO; TRAM50TA2 PO; ZINC30TA2 PO; [UNRECOGNIZED DRUG - CODE] EACH EAR; [UNRECOGNIZED DRUG - CODE] PO; [UNRECOGNIZED DRUG - MIXTURE] EACH EAR
--- NOTE | 2018-07-11 10:35 | ED Cough/URI ---
General Chief Complaint: Respiratory Problems Stated Complaint: SOB History of Present Illness Date Seen by Provider: July 11, 2018 Time Seen by Provider: 10:18 Initial Comments 67-year-old male brought in from [facility] from the [facility]. Patient is brought in because "they thought he had a fever" at the [facility]. Patient has a history of a pneumonia but was a possibly one year ago. They sent him in here to be evaluated after canis primary care physician. Patient denies any increased shortness of breath. He is always on 2 L home oxygen. He got a DuoNeb and route because of some mild wheezing. Patient at this time states he is feeling fine. Allergies and Home Medications Allergies Coded Allergies: No Known Drug Allergies (Unverified , 05/27/18) Home Medications Acetaminophen 500 Mg Tablet, 500 MG PO Q6H PRN for PAIN-MILD OR TEMPATURE, ( Reported) Alprazolam 0.5 Mg Tablet, 0.5 MG PO HS, (Reported) Amiodarone HCl 200 Mg Tablet, 200 MG PO Q12H, (Reported) Apixaban 5 Mg Tablet, 5 MG PO BID, (Reported) Azithromycin 250 Mg Tablet, 250 MG PO UD TAKE 2 TABLETS ON DAY ONE THEN TAKE 1 TABLET DAILY FOR FOUR MORE DAYS Prescribed by: STEFF SOMMER on 07/11/18 1137 Cefdinir 300 Mg Capsule, 300 MG PO BID Prescribed by: ROZ WILKINS on 06/02/18 1059 Citalopram Hydrobromide 20 Mg Tablet, 20 MG PO DAILY, (Reported) Famotidine 20 Mg Tablet, 20 MG PO BID, (Reported) Fluticasone Propionate 16 Gm [place].susp, 2 SPRAYS NS DAILY, (Reported) Gentamicin Sulfate 5 Ml Drops, 3 DROP OT BID, (Reported) INSTILL INTO ITCHING EAR TWICE DAILY X 7 DAYS START DATE 05-26-18 Guaifenesin 400 Mg Tablet, 400 MG PO QID, (Reported) Ibuprofen 400 Mg Tablet, 400 MG PO TID PRN for PAIN-MILD, (Reported) Ipratropium/Albuterol Sulfate 3 Ml Ampul.neb, 3 ML NEB Q6H PRN for SHORTNESS OF BREATH, (Reported) Magnesium Oxide 400 Mg Tablet, 400 MG PO DAILY, (Reported) Megestrol Acetate 400 Mg/10 Ml Oral.susp, 5 ML PO DAILY, (Reported) Morphine Sulfate 30 Mg Tablet.er, 30 MG PO 0600,1400,2200, (Reported) Multivitamin 1 Each Tablet, 1 TAB PO DAILY, (Reported) Nystatin 15 Gm Powder, TOP TID, (Reported) APPLY TO THIGHS AND GROIN UNTIL CLEAR Nystatin/Triamcinolone 15 Gm Oint, TP BID PRN for STOMA, (Reported) Ondansetron HCl 4 Mg Tab, 4 MG PO Q4H PRN for NAUSEA/VOMITING-1ST LINE, ( Reported) Prednisone 20 Mg Tab, 40 MG PO DAILY@0700 Prescribed by: ROZ WILKINS on 06/02/18 1059 Pregabalin 225 Mg Capsule, 225 MG PO TID, (Reported) Quetiapine Fumarate 50 Mg Tablet, 50 MG PO HS, (Reported) Tamsulosin HCl 0.4 Mg Cap, 0.8 MG PO HS, (Reported) TAKES 2 (0.4MG) CAPSULES Tea Tree Oil 1 Ml Oil, 4 DROP EACH EAR BID PRN for EAR, (Reported) Tramadol HCl 50 Mg Tablet, 100 MG PO Q6H PRN for PAIN-MODERATE, (Reported) Zinc Gluconate 30 Mg Tablet, 30 MG PO DAILY, (Reported) [Alcohol/Vinegar] , 4 DROPS EACH EAR PRN PRN for EAR PAIN, (Reported) ALCOHOL/WHITE VINEGAR EQUAL PARTS Patient Home Medication List Home Medication List Reviewed: Yes Review of Systems Review of Systems Constitutional: No chills, No fever EENTM: nose congestion Respiratory: cough (Chronic) Cardiovascular: no symptoms reported; No chest pain Gastrointestinal: no symptoms reported Genitourinary: no symptoms reported Skin: see HPI Past Ynlnkhq-Hxsbkc-Asvqqh Hx Past Med/Social Hx: Reviewed Nursing Past Med/Soc Hx Patient Social History Type Used: Cigarettes 2nd Hand Smoke Exposure: No Recent Hopitalizations: No Immunizations Up To Date Date of Pneumonia Vaccine: Dec 09, 2017 Date of Influenza Vaccine: Dec 09, 2017 Seasonal Allergies Seasonal Allergies: No Past Medical History Surgeries: Yes (Colostomy) Respiratory: Yes COPD Cardiac: Yes Irregular Heartbeat Neurological: Yes Multiple Sclerosis Genitourinary: No Gastrointestinal: Yes (Colostomy) Endocrine: No HEENT: No Cancer: No Psychosocial: No Blood Disorders: No Family Medical History FH: CHF (congestive heart failure) 19 FATHER, , Age:70, Onset:60 years & older Physical Exam Vital Signs - First Documented 07/11/18 10:22 Temp 98.5 Pulse 82 Resp 18 B/P (MAP) 126/75 (92) Pulse Ox 96 O2 Delivery Nasal Cannula O2 Flow Rate 2.00 Capillary Refill : Height: 5'8.00" Weight: 137lbs. 1.0oz. 62.295930ke; 21.0 BMI Method:Stated General Appearance: WD/WN, no apparent distress HEENT: PERRL/EOMI Neck: supple Respiratory: chest non-tender, no respiratory distress, no accessory muscle use , decreased breath sounds (Mild diffuse); No wheezing Cardiovascular: regular rate, rhythm, no edema Gastrointestinal: non tender, soft Neurologic/Psychiatric: no motor/sensory deficits, alert, normal mood/affect, oriented x 3 Skin: normal color, warm/dry Progress/Results/Core Measures Suspected Sepsis SIRS Temperature: Pulse: Respiratory Rate: Laboratory Tests 07/11/18 10:30: White Blood Count 10.2 Blood Pressure / Mean: Laboratory Tests 07/11/18 10:30: Creatinine 1.01, Platelet Count 211 Results/Orders Lab Results Laboratory Tests Test 07/11/18 10:30 Range/Units White Blood Count 10.2 4.3-11.0 10^3/uL Red Blood Count 4.46 4.35-5.85 10^6/uL Hemoglobin 12.8 L 13.3-17.7 G/DL Hematocrit 41 40-54 % Mean Corpuscular Volume 92 80-99 FL Mean Corpuscular Hemoglobin 29 25-34 PG Mean Corpuscular Hemoglobin Concent 31 L 32-36 G/DL Red Cell Distribution Width 16.0 H 10.0-14.5 % Platelet Count 211 130-400 10^3/uL Mean Platelet Volume 10.8 H 7.4-10.4 FL Neutrophils (%) (Auto) 79 H 42-75 % Lymphocytes (%) (Auto) 12 12-44 % Monocytes (%) (Auto) 7 0-12 % Eosinophils (%) (Auto) 1 0-10 % Basophils (%) (Auto) 1 0-10 % Neutrophils # (Auto) 8.0 H 1.8-7.8 X 10^3 Lymphocytes # (Auto) 1.2 1.0-4.0 X 10^3 Monocytes # (Auto) 0.8 0.0-1.0 X 10^3 Eosinophils # (Auto) 0.1 0.0-0.3 10^3/uL Basophils # (Auto) 0.1 0.0-0.1 10^3/uL Sodium Level 140 135-145 MMOL/L Potassium Level 4.4 3.6-5.0 MMOL/L Chloride Level 100 98-107 MMOL/L Carbon Dioxide Level 28 21-32 MMOL/L Anion Gap 12 5-14 MMOL/L Blood Urea Nitrogen 8 7-18 MG/DL Creatinine 1.01 0.60-1.30 MG/DL Estimat Glomerular Filtration Rate > 60 BUN/Creatinine Ratio 8 Glucose Level 91 70-105 MG/DL Calcium Level 9.2 8.5-10.1 MG/DL My Orders Orders - STEFF SOMMER DO Basic Metabolic Panel (07/11/18 10:30) Cbc With Automated Diff (07/11/18 10:30) Chest Pa/Lat (2 View) (07/11/18 10:30) Vital Signs/I&O 07/11/18 07/11/18 10:22 12:05 Temp 98.5 98.9 Pulse 82 80 Resp 18 20 B/P (MAP) 126/75 (92) 138/79 (98) Pulse Ox 96 97 O2 Delivery Nasal Cannula Nasal Cannula O2 Flow Rate 2.00 2.00 Capillary Refill : Progress Note : Progress Note Patient did well throughout his stay. Reviewed labs and x-rays. Questionable pneumonia versus atelectasis on x-ray. Due to his COPD history we will start him on azithromycin for questionable pneumonia and he'll be discharged back to [facility] in [facility] condition Diagnostic Imaging Diagonstic Imaging: Xray Plain Films/CT/US/NM/MRI: chest Reviewed: Reviewed by Me, Reviewed/Discussed Departure Impression Primary Impression: Bronchitis Disposition: 01 HOME, SELF-CARE Condition: Stable Departure-Patient Inst. Referrals: ROCHELLE VASQUEZ MD (PCP/Family) Primary Care Physician Patient Instructions: Chronic Bronchitis (DC), Acute Bronchitis, Adult (DC) Scripts Azithromycin (Azithromycin) 250 Mg Tablet 250 MG PO UD, #6 TAB TAKE 2 TABLETS ON DAY ONE THEN TAKE 1 TABLET DAILY FOR FOUR MORE DAYS Prov: STEFF SOMMER DO 07/11/18 STEFF SOMMER DO July 11, 2018 10:35
[2018-07-11 10:47] LABS: HEMOGLOBIN 12.8 G/DL (13.3-17.7); MEAN CORPUSCULAR HEMOGLOBIN 29 PG (25-34); WHITE BLOOD COUNT 10.2 10^3/uL (4.3-11.0)
[2018-07-11 10:48] LABS: BASOPHILS % (AUTO) 1 % (0-10); EOSINOPHILS % (AUTO) 1 % (0-10); HEMATOCRIT 41 % (40-54); LYMPHOCYTES % (AUTO) 12 % (12-44); MEAN CORPUSCULAR HGB CONC 31 G/DL (32-36); MEAN CORPUSCULAR VOLUME 92 FL (80-99); MEAN PLATELET VOLUME 10.8 FL (7.4-10.4); MONOCYTES % (AUTO) 7 % (0-12); PLATELET COUNT 211 10^3/uL (130-400)
[2018-07-11 10:49] LABS: BASOPHILS # (AUTO) 0.1 10^3/uL (0.0-0.1); EOSINOPHILS # (AUTO) 0.1 10^3/uL (0.0-0.3); LYMPHOCYTES # (AUTO) 1.2 X 10^3 (1.0-4.0); MONOCYTES # (AUTO) 0.8 X 10^3 (0.0-1.0)
[2018-07-11 10:50] LABS: NEUTROPHILS % (AUTO) 79 % (42-75)
--- NOTE | 2018-07-11 11:05 | Diagnostic Imaging Report ---
EXAM: PA and lateral chest at 1025 INDICATION: Cough, fever FINDINGS: Heart size is within normal limits and stable when compared to 05/28/2018. The chronic pulmonary changes seen on the prior exam are again evident. There is now a vague area of slightly increased density in the right perihilar region on the PA view. There is no corresponding abnormality identified with certainty on the lateral view and this density may merely be secondary to superimposition. The possibility of an element of mild pneumonia/atelectasis in the right perihilar region should still be considered. Clinical followup is recommended. The overall appearance of the chest has not changed significantly otherwise. There is a rounded area of increased density just superior to the aortic knob. In reviewing the CT chest exam of 05/28/2018 there was no sign of a mass in this area and this finding is consequently most likely secondary to superimposition as well. There is mild deformity of the right fifth, sixth and seventh ribs. This is probably a sequela of prior trauma. However there does seem to be slight offset of the midportion of the right sixth rib. This could be related to a subacute slightly displaced fracture. Clinical followup is recommended. There is no acute bony abnormality noted otherwise. IMPRESSION: 1. There is a question of mild pneumonia/atelectasis in the right perihilar region. Clinical followup is recommended. 2. There may also be a subacute slightly displaced fracture of the right sixth rib. 3. There is chronic pulmonary disease. Dictated by: Dictated on workstation # [id number]
[2018-07-11 11:24] LABS: CHLORIDE 100 MMOL/L (98-107); POTASSIUM 4.4 MMOL/L (3.6-5.0); SODIUM 140 MMOL/L (135-145)
[2018-07-11 11:25] LABS: BUN/CREATININE RATIO 8; CALCIUM 9.2 MG/DL (8.5-10.1); CARBON DIOXIDE 28 MMOL/L (21-32); CREATININE SERUM 1.01 MG/DL (0.60-1.30); GFR ESTIMATED > 60; GLUCOSE 91 MG/DL (70-105)
[2018-07-11] MEDS ORDERED: AZIT250T12 PO (11:37)
--- NOTE | 2018-07-11 11:52 | NUR ---
Called [facility] and informed Christie of patient's prescription and discharge. Christie stated they would send someone to pick patient up.
[2018-07-11 12:05] VITALS: BP 138/79
== END 2018-07-11 12:30 | disposition home or self-care (01) ==
LOC: EDUNIT# 10:15 → ER FS 10:27
DX: J44.9 Chronic obstructive pulmonary disease, unspecified (principal); G35 Multiple sclerosis; Z87.01 Personal history of pneumonia (recurrent); Z99.81 Dependence on supplemental oxygen; Z79.01 Long term (current) use of anticoagulants; Z79.51 Long term (current) use of inhaled steroids; Z82.49 Family history of ischemic heart disease and other diseases of the circulatory system; Z79.52 Long term (current) use of systemic steroids; Z93.3 Colostomy status
CPT/HCPCS: 36415; 71046; 80048; 85025

== ENCOUNTER 2018-09-03 08:38 | Inpatient (IN) | payer MEDICARE, MEDICAID ==
[2018-09-03] VITALS (25 sets, daily range): BP systolic 74–156; BP diastolic 56–89
[~2018-09-03] VITALS: Ht 172.7 cm; Wt 70.8 kg
[~2018-09-03 08:38] MED LIST changes: +AZIT250T12 PO
[2018-09-03] MEDS: NS IV 1000 ML 1,000 ML IV SCH ×5 (08:45→22:07)
--- NOTE | 2018-09-03 08:54 | ED General ---
General Stated Complaint: FEVER History of Present Illness Date Seen by Provider: Sep 03, 2018 Time Seen by Provider: 08:54 Initial Comments Patient presenting to the emergency department for evaluation of decreased mentation. [facility] and EMS states that his baseline is alert and oriented 3 and able to ambulate on his own. Patient is alert and oriented 1 for me and will try to answer questions and he will open his eyes on his own and try and communicate but is unable to provide any meaningful informa tion. On the prison paperwork appears that he is full code and is on multiple medications including elequis. He appears ill as he is tachycardic and hypotensive. USP reported to a wound on his Buttox. Allergies and Home Medications Allergies Coded Allergies: No Known Drug Allergies (Unverified , 05/27/18) Home Medications Acetaminophen 500 Mg Tablet, 500 MG PO Q6H PRN for PAIN-MILD OR TEMPATURE, (Reported) Alprazolam 0.5 Mg Tablet, 0.5 MG PO HS, (Reported) Amiodarone HCl 200 Mg Tablet, 200 MG PO Q12H, (Reported) Apixaban 5 Mg Tablet, 5 MG PO BID, (Reported) Azithromycin 250 Mg Tablet, 250 MG PO UD TAKE 2 TABLETS ON DAY ONE THEN TAKE 1 TABLET DAILY FOR FOUR MORE DAYS Prescribed by: STEFF SOMMER on 07/11/18 1137 Cefdinir 300 Mg Capsule, 300 MG PO BID Prescribed by: ROZ WILKINS on 06/02/18 1059 Citalopram Hydrobromide 20 Mg Tablet, 20 MG PO DAILY, (Reported) Famotidine 20 Mg Tablet, 20 MG PO BID, (Reported) Fluticasone Propionate 16 Gm [place].susp, 2 SPRAYS NS DAILY, (Reported) Gentamicin Sulfate 5 Ml Drops, 3 DROP OT BID, (Reported) INSTILL INTO ITCHING EAR TWICE DAILY X 7 DAYS START DATE 05-26-18 Guaifenesin 400 Mg Tablet, 400 MG PO QID, (Reported) Ibuprofen 400 Mg Tablet, 400 MG PO TID PRN for PAIN-MILD, (Reported) Ipratropium/Albuterol Sulfate 3 Ml Ampul.neb, 3 ML NEB Q6H PRN for SHORTNESS OF BREATH, (Reported) Magnesium Oxide 400 Mg Tablet, 400 MG PO DAILY, (Reported) Megestrol Acetate 400 Mg/10 Ml Oral.susp, 5 ML PO DAILY, (Reported) Morphine Sulfate 30 Mg Tablet.er, 30 MG PO 0600,1400,2200, (Reported) Multivitamin 1 Each Tablet, 1 TAB PO DAILY, (Reported) Nystatin 15 Gm Powder, TOP TID, (Reported) APPLY TO THIGHS AND GROIN UNTIL CLEAR Nystatin/Triamcinolone 15 Gm Oint, TP BID PRN for STOMA, (Reported) Ondansetron HCl 4 Mg Tab, 4 MG PO Q4H PRN for NAUSEA/VOMITING-1ST LINE, (Reported) Prednisone 20 Mg Tab, 40 MG PO DAILY@0700 Prescribed by: ROZ WILKINS on 06/02/18 1059 Pregabalin 225 Mg Capsule, 225 MG PO TID, (Reported) Quetiapine Fumarate 50 Mg Tablet, 50 MG PO HS, (Reported) Tamsulosin HCl 0.4 Mg Cap, 0.8 MG PO HS, (Reported) TAKES 2 (0.4MG) CAPSULES Tea Tree Oil 1 Ml Oil, 4 DROP EACH EAR BID PRN for EAR, (Reported) Tramadol HCl 50 Mg Tablet, 100 MG PO Q6H PRN for PAIN-MODERATE, (Reported) Zinc Gluconate 30 Mg Tablet, 30 MG PO DAILY, (Reported) [Alcohol/Vinegar] , 4 DROPS EACH EAR PRN PRN for EAR PAIN, (Reported) ALCOHOL/WHITE VINEGAR EQUAL PARTS Patient Home Medication List Home Medication List Reviewed: Yes Review of Systems Review of Systems Constitutional: fever (100.7 for EMS) EENTM: no symptoms reported Respiratory: no symptoms reported Cardiovascular: no symptoms reported Gastrointestinal: no symptoms reported Genitourinary: no symptoms reported Musculoskeletal: no symptoms reported Skin: no symptoms reported Psychiatric/Neurological: No Symptoms Reported Hematologic/Lymphatic: No Symptoms Reported Immunological/Allergic: no symptoms reported All Other Systems Reviewed Negative Unless Noted: Yes Past Ecwmlrd-Zmdbit-[place]be[place] Hx Patient Social History Alcohol Beverage of Choice: Beer Type Used: Cigarettes 2nd Hand Smoke Exposure: No Recent Hopitalizations: No Immunizations Up To Date Date of Pneumonia Vaccine: Dec 09, 2017 Date of Influenza Vaccine: Dec 09, 2017 Seasonal Allergies Seasonal Allergies: No Past Medical History Surgeries: Yes (Colostomy) Respiratory: Yes COPD Cardiac: Yes Irregular Heartbeat Neurological: Yes Multiple Sclerosis Genitourinary: No Gastrointestinal: Yes (Colostomy) Endocrine: No HEENT: No Cancer: No Psychosocial: No Blood Disorders: No Family Medical History FH: CHF (congestive heart failure) 19 FATHER, , Age:70, Onset:60 years & older Physical Exam Vital Signs Capillary Refill : Height, Weight, BMI Height: 5'8.00" Weight: 138lbs. 1.0oz. [id number]; 21.0 BMI Method:Stated General Appearance: Cachetic, Other (ill in mild respiratory distress) Eyes: Bilateral Eye Normal Inspection HEENT: Other (dry mouth with no lesions visualized) Neck: Supple Respiratory: Other (BL BS present with decreased aeration and I/E wheezing) Cardiovascular: Tachycardia (at 95) Gastrointestinal: Non Tender (R sided colostomy placed with SQ device vs hernia on L abdomen), Soft Rectal: Deferred Back: Normal Inspection Extremity: Slow Capillary Refill Neurologic/Psychiatric: Alert, Disoriented Skin: Cool, Pallor, Other (buttox has ulcer present with surrounding erythema and warmth) Focused Exam Lactate Level 09/03/18 08:47: Lactic Acid Level 0.69 Lactic Acid Level Laboratory Tests Test 09/03/18 08:47 Lactic Acid Level 0.69 MMOL/L (0.50-2.00) Procedures/Interventions Lumen: triple Central Line Procedure: betadine prep, sterile drapes applied, sterile dressing applied Position: internal jugular (R) Complications: none Post Position: sutured Patient prepped and draped in normal sterile fashion and central line was placed shortly after intubation completed. Ultrasound utilized to confirm placement. Completed on first attempt with no complications noted. X-ray done which showed central line in approprieate position. Reason for Intubation: failure of ventilation, airway protection for transfer Intubation Method: orotracheal Tube Size: 8.0 Medications: Rocuronium (and ketamine) Positive End Tide CO2: Yes Breath Sounds after Intubation: bilateral-equal Intubation Complications: no complications Post Intubation Xray: Yes good position intubated with glidescope with no hypoxic events Progress/Results/Core Measures Suspected Sepsis SIRS Temperature: Pulse: Respiratory Rate: Laboratory Tests 09/03/18 08:47: White Blood Count 11.4H Blood Pressure / Mean: 09/03/18 08:47: Lactic Acid Level 0.69 Laboratory Tests 09/03/18 08:47: Creatinine 1.67H, INR Comment 1.4, Platelet Count 173, Total Bilirubin 0.6 Results/Orders Lab Results Laboratory Tests Test 09/03/18 08:47 09/03/18 09:09 09/03/18 11:09 Range/Units White Blood Count 11.4 H 4.3-11.0 10^3/uL Red Blood Count 4.81 4.35-5.85 10^6/uL Hemoglobin 13.9 13.3-17.7 G/DL Hematocrit 44 40-54 % Mean Corpuscular Volume 92 80-99 FL Mean Corpuscular Hemoglobin 29 25-34 PG Mean Corpuscular Hemoglobin Concent 31 L 32-36 G/DL Red Cell Distribution Width 14.7 H 10.0-14.5 % Platelet Count 173 130-400 10^3/uL Mean Platelet Volume 11.8 H 7.4-10.4 FL Neutrophils (%) (Auto) 91 H 42-75 % Lymphocytes (%) (Auto) 3 L 12-44 % Monocytes (%) (Auto) 4 0-12 % Eosinophils (%) (Auto) 0 0-10 % Basophils (%) (Auto) 0 0-10 % Neutrophils # (Auto) 10.5 H 1.8-7.8 X 10^3 Lymphocytes # (Auto) 0.4 L 1.0-4.0 X 10^3 Monocytes # (Auto) 0.5 0.0-1.0 X 10^3 Eosinophils # (Auto) 0.0 0.0-0.3 10^3/uL Basophils # (Auto) 0.0 0.0-0.1 10^3/uL Neutrophils % (Manual) 48 % Lymphocytes % (Manual) 5 % Monocytes % (Manual) 2 % Band Neutrophils 45 % Blood Morphology Comment NORMAL Prothrombin Time 17.5 H 12.2-14.7 SEC INR Comment 1.4 0.8-1.4 Activated Partial Thromboplast Time 35 24-35 SEC D-Dimer 1.77 H 0.00-0.49 UG/ML Sodium Level 136 135-145 MMOL/L Potassium Level 5.0 3.6-5.0 MMOL/L Chloride Level 95 L 98-107 MMOL/L Carbon Dioxide Level 30 21-32 MMOL/L Anion Gap 11 5-14 MMOL/L Blood Urea Nitrogen 26 H 7-18 MG/DL Creatinine 1.67 H 0.60-1.30 MG/DL Estimat Glomerular Filtration Rate 41 BUN/Creatinine Ratio 16 Glucose Level 119 H 70-105 MG/DL Lactic Acid Level 0.69 0.50-2.00 MMOL/L Calcium Level 8.9 8.5-10.1 MG/DL Corrected Calcium 9.1 8.5-10.1 MG/DL Magnesium Level 1.7 L 1.8-2.4 MG/DL Total Bilirubin 0.6 0.1-1.0 MG/DL Aspartate Amino Transf (AST/SGOT) 18 5-34 U/L Alanine Aminotransferase (ALT/SGPT) 8 0-55 U/L Alkaline Phosphatase 83 40-136 U/L Troponin T 30 H <=15 NG/L Pro-B-Type Natriuretic Peptide 263.5 H <75.0 PG/ML Total Protein 6.5 6.4-8.2 GM/DL Albumin 3.7 3.2-4.5 GM/DL Lipase 12 8-78 U/L Blood Gas Puncture Site LEFT AC Blood Gas Patient Temperature 99.1 Arterial Blood pH 7.26 *L 7.37-7.43 Arterial Blood Partial Pressure CO2 77 *H 35-45 MMHG Arterial Blood Partial Pressure O2 51 L 79-93 MMHG Arterial Blood HCO3 35 H 23-27 MMOL/L Arterial Blood Total CO2 37.0 H 21.0-31.0 MMOL/L Arterial Blood Oxygen Saturation 80 L 94-100 % Arterial Blood Base Excess 5.2 H -2.5-2.5 MMOL/L [place] Test NA Blood Gas Ventilator Setting NA Blood Gas Inspired Oxygen NA My Orders Orders - ELISE COHEN DO Ct Head Wo (09/03/18 08:51) Cbc With Automated Diff (09/03/18 08:51) Comprehensive Metabolic Panel (09/03/18 08:51) Fibrin Degradation Products (09/03/18 08:51) Lipase (09/03/18 08:51) Magnesium (09/03/18 08:51) Partial Thromboplastin Time (09/03/18 08:51) Probnp Fs (09/03/18 08:51) Protime With Inr (09/03/18 08:51) Troponin T (09/03/18 08:51) Ua Culture If Indicated (09/03/18 08:51) Chest 1 View Ap/Pa Only (09/03/18 08:51) Ekg Tracing (09/03/18 08:51) Arterial Blood Gas (09/03/18 08:51) Blood Culture (09/03/18 08:51) Lactic Acid Analyzer (09/03/18 08:51) Albuterol/Ipra Inhalation Soln (Duoneb I (09/03/18 09:15) Svn Small Volume Nebulizer (09/03/18 09:06) Blood Culture (09/03/18 08:57) Ns Iv 1000 Ml (Sodium Chloride 0.9%) (09/03/18 09:07) Vancomycin Injection (Vancomycin Injecti (09/03/18 09:14) Piperacillin Sodium/Tazobactam (Zosyn Vi (09/03/18 09:14) Ns (Ivpb) (Sodium Chloride 0.9% Ivpb Bag (09/03/18 09:15) Ns (Ivpb) (Sodium Chloride 0.9%) (09/03/18 09:15) Norepinephrine (Levophed) (09/03/18 09:45) Manual Differential (09/03/18 08:47) Bipap (Bilevel) Set Up (09/03/18 09:58) Albuterol/Ipra Inhalation Soln (Duoneb I (09/03/18 10:00) Methylprednisolone Sod Succ (Solu-Medrol (09/03/18 10:00) Svn Small Volume Nebulizer (09/03/18 09:58) Ns Iv 1000 Ml (Sodium Chloride 0.9%) (09/03/18 09:53) Propofol Drip (Icu) (Diprivan Drip (Icu) (09/03/18 10:36) Chest 1 View Ap/Pa Only (09/03/18 10:54) Medications Given in ED Current Medications Medications Dose Ordered Sig/Ignacio Route Start Time Stop Time Status Last Admin Dose Admin Albuterol/ Ipratropium 3 ml ONCE ONCE INH 09/03/18 09:15 09/03/18 09:16 DC 09/03/18 09:16 3 ML Albuterol/ Ipratropium 3 ml ONCE ONCE INH 09/03/18 10:00 09/03/18 10:01 DC 09/03/18 10:07 3 ML Methylprednisolone Sodium Succinate 125 mg ONCE ONCE IVP 09/03/18 10:00 09/03/18 10:01 DC 09/03/18 10:06 125 MG Piperacillin Sod/ Tazobactam Sod 4.5 gm STK-MED ONCE IV 09/03/18 09:14 09/03/18 09:21 DC 09/03/18 09:36 4.5 GM Sodium Chloride 1,000 ml @ ud STK-MED ONCE .ROUTE 09/03/18 09:07 09/03/18 09:13 DC 09/03/18 09:16 999 MLS/HR Vancomycin HCl 1,000 mg STK-MED ONCE .ROUTE 09/03/18 09:14 09/03/18 09:21 DC 09/03/18 09:34 1,000 MG Vital Signs/I&O Capillary Refill : Progress Note : Progress Note Patient is quite ill possibly septic from a cellulitis pneumonia or urinary tract infection. Will start by checking labs treating with aggressive IV fluids antibiotics and will require transfer to the ICU at [place]. Patient is hypercarbic altered hypotensive and there is concern the patient will not protect his airway and possibly decompensate with transfer. Patient did not have improved blood pressure with 2 L of fluid here so he was started on pressors and central line was placed for pressors to be pushed through. He was also intubated. I did want to get a CT of his chest abdomen pelvis to ensure there is no other source of his infection or hypertension however he was too unstable here, although we did get quick head CT initially while awaiting Cr. I spoke to both Dr. Mae(hospitalist accepting patient) and Dr. Whitley(private duty rn) at [place] and they were comfortable stabilizing him further there and determining if further imaging would be necessary. He does appear the patient has a pneumonia. He was given 3 L of fluid in addition to broad-spectrum antibiotics. Patient transferred in critical condition. Critical care time 56 minutes not including procedures. Critical Care Note Critical Care Total Time (minutes) 56 Departure Impression Primary Impression: Septic shock Additional Impressions: HCAP (healthcare-associated pneumonia) Hypercarbia Respiratory failure Qualified Codes: J96.02 - Acute respiratory failure with hypercapnia Disposition: ADMITTED INPATIENT Condition: Critical Transfer Method of Transfer: EMS Departure-Patient Inst. Referrals: ROCHELLE VASQUEZ MD (PCP/Family) Primary Care Physician ELISE COHEN DO Sep 03, 2018 08:54
[2018-09-03] MEDS ORDERED: NS 1000 ML IV BAG IV ONE ×2 (09:00→09:45)
[2018-09-03] MEDS ORDERED: PIPERACILLIN/TAZOBACTAM (BULK) 4.5 GM in NS (IVPB) 100 ML IV ONE (09:00)
[2018-09-03] MEDS ORDERED: VANCOMYCIN INJECTION 1,000 MG in NS (IVPB) 250 ML IV SCH (09:00)
[2018-09-03] MEDS ORDERED: NS IV 1000 ML 1,000 ML ONE ×2 (09:07→09:53)
[2018-09-03] MEDS ORDERED: VANCOMYCIN 1000 MG/VIAL ONE (09:14)
[2018-09-03] MEDS ORDERED: PIPERACILLIN/TAZO 4.5 GM VIAL (ZOSYN) IV ONE (09:14)
[2018-09-03] MEDS ORDERED: RT-ALBUTEROL/IPRATROPIUM 3 ML (DUONEB) VIAL INH ONE ×2 (09:15→10:00)
[2018-09-03] MEDS ORDERED: NS (IVPB) 250 ML ONE ×2 (09:15→23:18)
[2018-09-03] MEDS ORDERED: NS (IVPB) 100 ML ONE (09:15)
[2018-09-03] MEDS ORDERED: NOREPINEPHRINE 4 MG in NS (IVPB) 250 ML IV SCH (09:45)
[2018-09-03 09:47] LABS: BASOPHILS % (AUTO) 0 % (0-10); EOSINOPHILS % (AUTO) 0 % (0-10); HEMATOCRIT 44 % (40-54); HEMOGLOBIN 13.9 G/DL (13.3-17.7); LYMPHOCYTES # (AUTO) 0.4 X 10^3 (1.0-4.0); LYMPHOCYTES % (AUTO) 3 % (12-44); MEAN CORPUSCULAR HEMOGLOBIN 29 PG (25-34); MEAN CORPUSCULAR HGB CONC 31 G/DL (32-36); MEAN CORPUSCULAR VOLUME 92 FL (80-99); MEAN PLATELET VOLUME 11.8 FL (7.4-10.4); MONOCYTES # (AUTO) 0.5 X 10^3 (0.0-1.0); MONOCYTES % (AUTO) 4 % (0-12); NEUTROPHILS # (AUTO) 10.5 X 10^3 (1.8-7.8); NEUTROPHILS % (AUTO) 91 % (42-75); PLATELET COUNT 173 10^3/uL (130-400); RED CELL DISTRIBUTION WIDTH 14.7 % (10.0-14.5); WHITE BLOOD COUNT 11.4 10^3/uL (4.3-11.0)
[2018-09-03 09:48] LABS: BAND NEUTROPHILS 45 %; LYMPHOCYTES % (MANUAL) 5 %; MONOCYTES % (MANUAL) 2 %; NEUTROPHILS % (MANUAL) 48 %
[2018-09-03 09:49] LABS: RBC MORPH NORMAL
[2018-09-03 09:50] LABS: BILIRUBIN,TOTAL 0.6 MG/DL (0.1-1.0); CALCIUM 8.9 MG/DL (8.5-10.1); CREATININE SERUM 1.67 MG/DL (0.60-1.30); MAGNESIUM 1.7 MG/DL (1.8-2.4)
[2018-09-03 09:51] LABS: ALBUMIN 3.7 GM/DL (3.2-4.5); TOTAL PROTEIN 6.5 GM/DL (6.4-8.2)
[2018-09-03 09:57] LABS: ABG BASE EXCESS 5.2 MMOL/L (-2.5-2.5)
[2018-09-03 09:58] LABS: PATIENT TEMP 99.1
[2018-09-03 10:00] LABS: ABG PH 7.26 (7.37-7.43)
[2018-09-03 10:01] LABS: ABG PCO2 77 MMHG (35-45); ABG PO2 51 MMHG (79-93)
[2018-09-03 10:02] LABS: ABG OXYGEN SATURATION 80 % (94-100)
[2018-09-03] MEDS: methylPREDNISolone 125 MG (Solu-MEDROL) VIAL IVP ONE ×2 (10:06→12:42)
[2018-09-03 10:09] LABS: FIBRIN DEGRADATION PRODUCTS 1.77 UG/ML (0.00-0.49); INR 1.4 (0.8-1.4); PROTHROMBIN TIME PATIENT 17.5 SEC (12.2-14.7)
--- NOTE | 2018-09-03 10:11 | Diagnostic Imaging Report ---
PROCEDURE: CT head without contrast. TECHNIQUE: Multiple contiguous axial images were obtained through the brain without the use of intravenous contrast. Auto Exposure Controls were utilized during the CT exam to meet ALARA standards for radiation dose reduction. INDICATION: Altered mental status. COMPARISON: 02/21/2012. FINDINGS: The study is somewhat compromised by motion artifact. The patient was unable to hold still. The ventricular size appears to be normal. No sulcal effacement is seen. There is no midline shift. No acute intra-axial or extra-axial hemorrhage is detected. The cisterns are patent. The visualized paranasal sinuses are clear. IMPRESSION: Limited by motion. No acute feature is detected. Dictated by: Dictated on workstation # [id number]
--- NOTE | 2018-09-03 10:12 | Diagnostic Imaging Report ---
INDICATION: Altered mental status and shortness of breath. TIME OF EXAMINATION: 9:37 AM. COMPARISON: 07/11/2018. FINDINGS: The heart size is stable. There appears to be some infiltrate in the right mid and upper lung horton. The left lung is fairly clear. There is no effusion or pneumothorax. IMPRESSION: Right-sided patchy infiltrate or atelectasis. Dictated by: Dictated on workstation # [id number]
[2018-09-03] MEDS ORDERED: PROPOFOL DRIP (ICU) 100 ML IV ONE (10:36)
[2018-09-03] MEDS ORDERED: PROPOFOL DRIP (ICU) 100 ML IV SCH (10:40)
[2018-09-03] MEDS ORDERED: ROCURONIUM 10 MG/ML 5 ML SYRINGE IV ONE (11:12)
[2018-09-03] MEDS ORDERED: KETAMINE HCL 100 MG/ML 5 ML VIAL IV ONE (11:12)
--- NOTE | 2018-09-03 11:12 | Diagnostic Imaging Report ---
INDICATION: ET tube placement FINDINGS: Study compared with exam earlier this same date. ET tube projects over the midthoracic trachea. There is a right IJ at the lower SVC. There is severe bullous emphysematous changes as a chronic finding however more localized opacity in the medial right upper lobe is suspect for pneumonia. Superimposed density warrants radiographic followup. IMPRESSION: ET tube in good position. IJ in good position. No pneumothorax. Known chronic COPD and bullous disease with progressive parenchymal density in the right upper lobe medially as well as projecting over the heart with a multifocal pneumonia suspected but warranting radiographic followup. Dictated by: Dictated on workstation # [id number]
[2018-09-03 11:30] LABS: COLOR,URINE YELLOW
[2018-09-03 11:31] LABS: BACTERIA,URINE NEGATIVE /HPF; BILIRUBIN,URINE NEGATIVE (NEGATIVE); CLARITY,URINE CLEAR; GLUCOSE, URINE (UA) NEGATIVE (NEGATIVE); KETONES,URINE NEGATIVE (NEGATIVE); LEUKOCYTE ESTERASE ,URINE NEGATIVE (NEGATIVE); NITRITE,URINE NEGATIVE (NEGATIVE); PH,URINE 6.5 (5-9); PROTEIN,URINE NEGATIVE (NEGATIVE); RBC,URINE RARE /HPF; UROBILINOGEN,URINE 0.2 MG/DL (NORMAL); WBC,URINE 0-2 /HPF
[2018-09-03] MEDS ORDERED: methylPREDNISolone 125 MG (Solu-MEDROL) VIAL ONE (12:36)
--- NOTE | 2018-09-03 12:39 | NUR ---
TRISTAN MESSINA admitted to room CU9-1, with an admitting diagnosis of SEPSIS, PNA , on 09/03/18 from ED [facility] via EMS, accompanied by EMS .TRISTAN MESSINA introduced to surroundings, call light, bed controls, phone, TV, temperature control, lights, meal times, smoking policy, visitor policy, side rail policy, bathrooms and showers. Patient Rights given to patient in the handbook.TRISTAN MESSINA UNABLE TO verbalize understanding that [facility] is not responsible for the loss or damage to any personal effects or valuables that are kept in the patients posession during their hospitalization HE IS INTIBATED AND ON SEDATION. PER EMS THE 3RD BAG OF IVF BOLUS COMPLETED ON TRANSPORT.
--- NOTE | 2018-09-03 14:00 | History & Physical-Hospitalist ---
History of Present Illness HPI/Chief Complaint CC: Septic shock with respiratory failure HPI: This is a 68yoWM prison patient of Dr. Hernandez who presented to the ER wi th altered mental status and low BP found to be in septic shock from right lower lobe pneumonia, ABG revealed CO2 retention of 77 requiring intubation prior to transport to the ICU under my service and consulted Dr. Whitley. He was placed on aggressive IV fluid for septic shock protocol, placed on Levophed pressor therapy and Pt has improved immensely since arrival. At this current time, Pt is sedated, vitals are now stable and will be maintained on ventilator per Dr. Whitley's expertise. Source: patient Exam Limitations: no limitations Date Seen 09/03/18 Time Seen by a Provider: 14:00 Attending Physician Maribel Mae DO PCP Feliz Hernandez MD Referring Physician Date of Admission Sep 03, 2018 at 10:56 Home Medications & Allergies Home Medications Reviewed patient Home Medication Reconciliation performed by pharmacy medication reconciliations hemodialysis technician and/or nursing. Patients Allergies have been reviewed. Allergies Allergies Coded Allergies No Known Drug Allergies (Unverified05/27/18) Past Jrrwkfm-Awjntv-Cdcdsd Hx Past Med/Social Hx: Reviewed Nursing Past Med/Soc Hx, Reviewed and Corrections made Patient Social History Alcohol Use: Denies Use Alcohol Beverage of Choice: Beer Recreational Drug Use: No Smoking Status: Unknown if Ever Smoked Type Used: Cigarettes 2nd Hand Smoke Exposure: No Recent Foreign Travel: No Contact w/other who traveled: No Recent Hopitalizations: No Recent Infectious Disease Expo: No Immunizations Up To Date Date of Pneumonia Vaccine: Dec 09, 2017 Date of Influenza Vaccine: Dec 09, 2017 Seasonal Allergies Seasonal Allergies: No Past Medical History Respiratory: COPD Cardiac: Irregular Heartbeat Neurological: Multiple Sclerosis History of Blood Disorders: No Family History FH: CHF (congestive heart failure) 19 FATHER, , Age:70, Onset:60 years & older Review of Systems ROS-Unable to Obtain: unable to ascertain Constitutional: see HPI, chills, dizziness, fever, weakness Psychiatric/Neurological: Anxiety, Other (confusion) Physical Exam Physical Exam Vital Signs Vital Signs - First Documented 09/03/18 09/03/18 08:45 12:05 Temp 99.1 Pulse 98 Resp 20 B/P (MAP) 87/52 (64) Pulse Ox 97 O2 Delivery Non Rebreather O2 Flow Rate 10.00 FiO2 60 Capillary Refill : Less Than 3 Seconds Height, Weight, BMI Height: 5'8.00" Weight: 138lbs. 1.0oz. 62.440943ai; 21.0 BMI Method:Stated General Appearance: No Apparent Distress, WD/WN, Chronically ill, Thin, Other (sedated and intubated) Respiratory: Crackles, Decreased Breath Sounds Cardiovascular: Regular Rate, Rhythm, No Edema Neurologic/Psychiatric: Other (sedated) Results Results/Procedures Labs Laboratory Tests 09/03/18 08:47 Patient resulted labs reviewed. Assessment/Plan Admission Diagnosis Assessment: VDRF Septic shock RLL Pneumonia MS Chronic debility requiring NHP permanently Bandemia ARF Plan: IVF for septic shock with pressor therapy Appreciate Dr Whitley vent management and order desk caller expertise Abx Monitor closely Admission Status: Inpatient Order (span 2 midnights) Reason for Inpatient Admission: septic shock with VDRF requires 5 days inpatient Diagnosis/Problems Diagnosis/Problems (1) Septic shock Status: Acute (2) Respiratory failure Status: Acute Qualifiers: Chronicity: acute Respiratory failure complication: hypercapnia Qualified Codes: J96.02 - Acute respiratory failure with hypercapnia (3) HCAP (healthcare-associated pneumonia) Status: Acute (4) Hypercarbia Status: Acute (5) RESPIRATORY FAILURE, UNSP, UNSP W HYPOXIA OR HYPERCAPNIA Status: Acute (6) Hypotension Status: Chronic Qualifiers: Hypotension type: unspecified hypotension type Qualified Codes: I95.9 - Hypotension, unspecified (7) Wheelchair dependence Status: Chronic (8) Multiple sclerosis Status: Chronic (9) Chronic pain Status: Chronic Qualifiers: Chronic pain type: chronic pain syndrome Qualified Codes: G89.4 - Chronic pain syndrome (10) Atrial fibrillation Status: Chronic Qualifiers: Atrial fibrillation type: paroxysmal Qualified Codes: I48.0 - Paroxysmal atrial fibrillation (11) FH: CHF (congestive heart failure) (12) Smoker Status: Chronic MARIBEL MAE DO Sep 03, 2018 14:00
--- NOTE | 2018-09-03 14:11 | Physical Therapy Progress Note ---
Therapy Progress Note PT eval order received. Patient is currently intubated, will check back when patient can actively participate with PT. DANIELLA SPAIN PT Sep 03, 2018 14:11
--- NOTE | 2018-09-03 14:14 | NUR ---
ENTERED MED REC FROM LIST THAT WAS IN PATIENTS CHART FROM [facility]. I CALLED [facility] TO VERIFY DIRECTIONS ON GENTAMICIN (DIRECTIONS WERE CUT OFF ON FAX), THEY INDICATED THE PATIENT WAS NO LONGER USING THIS MEDICATION.
--- NOTE | 2018-09-03 15:01 | Pulmonary Consultation ---
History of Present Illness History of Present Illness Date of Consultation 09/03/18 14:55 Date of Admission Allergies and Home Medications Allergies Coded Allergies: No Known Drug Allergies (Unverified , 05/27/18) Home Medications Acetaminophen 500 Mg Tablet, 500 MG PO Q6H PRN for PAIN-MILD OR TEMPATURE, (Reported) Alprazolam 0.5 Mg Tablet, 0.5 MG PO HS, (Reported) Amiodarone HCl 200 Mg Tablet, 200 MG PO Q12H, (Reported) Apixaban 5 Mg Tablet, 5 MG PO BID, (Reported) Citalopram Hydrobromide 20 Mg Tablet, 20 MG PO DAILY, (Reported) Famotidine 20 Mg Tablet, 20 MG PO BID, (Reported) Fluticasone Propionate 16 Gm [place].susp, 2 SPRAYS NS DAILY, (Reported) Guaifenesin 400 Mg Tablet, 400 MG PO QID, (Reported) Ibuprofen 400 Mg Tablet, 400 MG PO TID PRN for PAIN-MILD, (Reported) Ipratropium/Albuterol Sulfate 3 Ml Ampul.neb, 3 ML NEB Q6H PRN for SHORTNESS OF BREATH, (Reported) Magnesium Oxide 400 Mg Tablet, 400 MG PO DAILY, (Reported) Megestrol Acetate 400 Mg/10 Ml Oral.susp, 5 ML PO DAILY, (Reported) Morphine Sulfate 30 Mg Tablet.er, 30 MG PO 0600,1400,2200, (Reported) Multivitamin 1 Each Tablet, 1 TAB PO DAILY, (Reported) Nystatin 15 Gm Powder, TOP TID, (Reported) APPLY TO THIGHS AND GROIN UNTIL CLEAR Nystatin/Triamcinolone 15 Gm Oint, TP BID PRN for STOMA, (Reported) Ondansetron HCl 4 Mg Tab, 4 MG PO Q4H PRN for NAUSEA/VOMITING-1ST LINE, (Reported) Pregabalin 225 Mg Capsule, 225 MG PO TID, (Reported) Quetiapine Fumarate 50 Mg Tablet, 50 MG PO HS, (Reported) Tamsulosin HCl 0.4 Mg Cap, 0.8 MG PO HS, (Reported) TAKES 2 (0.4MG) CAPSULES Tea Tree Oil 1 Ml Oil, 4 DROP EACH EAR BID PRN for EAR, (Reported) Tramadol HCl 50 Mg Tablet, 100 MG PO Q6H PRN for PAIN-MODERATE, (Reported) Zinc Gluconate 30 Mg Tablet, 30 MG PO DAILY, (Reported) [Alcohol/Vinegar] , 4 DROPS EACH EAR PRN PRN for EAR PAIN, (Reported) ALCOHOL/WHITE VINEGAR EQUAL PARTS Past Mlnwjec-Dsyskt-Qryjwy Hx Patient Social History Alcohol Use: Denies Use Alcohol Beverage of Choice: Beer Recreational Drug Use: No Smoking Status: Unknown if Ever Smoked Type Used: Cigarettes 2nd Hand Smoke Exposure: No Recent Foreign Travel: No Contact w/Someone Who Travel: No Recent Infectious Disease Expo: No Recent Hopitalizations: No Physical Abuse: No Sexual Abuse: No Mistreated: No Fear: No Immunizations Up To Date Date of Pneumonia Vaccine: Dec 09, 2017 Date of Influenza Vaccine: Dec 09, 2017 Seasonal Allergies Seasonal Allergies: No Past Medical History Surgeries: Yes (Colostomy, ) Respiratory: Yes COPD Cardiac: Yes Irregular Heartbeat Neurological: Yes Multiple Sclerosis Genitourinary: No Gastrointestinal: Yes (Colostomy) Endocrine: No HEENT: No Cancer: No Psychosocial: No Blood Disorders: No Family Medical History FH: CHF (congestive heart failure) 19 FATHER, , Age:70, Onset:60 years & older Sepsis Event Evaluation Height, Weight, BMI Height: 5'8.00" Weight: 138lbs. 1.0oz. 62.839243cc; 21.0 BMI Method:Stated Exam Exam Vital Signs Date Time Temp Pulse Resp B/P (MAP) Pulse Ox O2 Delivery O2 Flow Rate FiO2 09/03/18 14:00 76 21 115/72 (86) 100 Mechanical Ventilator 100.00 09/03/18 13:15 75 9 119/71 (87) 100 Mechanical Ventilator 100.00 09/03/18 13:00 77 17 107/71 (83) 100 Mechanical Ventilator 100.00 09/03/18 12:45 78 17 111/74 (86) 100 Mechanical Ventilator 100.00 09/03/18 12:30 82 11 100/68 (79) 100 Mechanical Ventilator 100.00 09/03/18 12:15 99 13 156/85 (108) 100 Mechanical Ventilator 100.00 09/03/18 12:15 99 09/03/18 12:08 100 09/03/18 11:26 99.2 98 22 120/68 (85) 100 Mechanical Ventilator 09/03/18 11:05 145/61 09/03/18 08:45 99.1 98 20 87/52 (64) 97 Non Rebreather 10.00 Height & Weight Height: 5'8.00" Weight: 138lbs. 1.0oz. 62.167425ha; 21.0 BMI Method:Stated General Appearance: Cachetic, Other (ill in mild respiratory distress) HEENT: Other (dry mouth with no lesions visualized) Neck: Supple Respiratory: Other (BL BS present with decreased aeration and I/E wheezing) Cardiovascular: Tachycardia (at 95) Capillary Refill: Less Than 3 Seconds Extremity: Slow Capillary Refill Neurologic/Psychiatric: Alert, Disoriented Skin: Cool, Pallor, Other (buttox has ulcer present with surrounding erythema and warmth) Results Lab Laboratory Tests 09/03/18 08:47 Assessment/Plan Assessment/Plan Severe sepsis with septic shock probably secondary to pneumonia -Pitts cultures -IVF -Severe sepsis protocol Acute respiratory failure -Continue vent support Severe COPD -Will start solumedrol -SVNS MS hx and wheel chair bound -From [facility] ANNELISE HOOVER DO Sep 03, 2018 15:01
[2018-09-03 15:17] LABS: ABG BASE EXCESS -0.9 MMOL/L (-2.5-2.5); ABG OXYGEN SATURATION 100 % (94-100); ABG PCO2 47 MMHG (35-45); ABG PO2 174 MMHG (79-93); ABG TCO2 25.9 MMOL/L (21.0-31.0)
[2018-09-03 15:21] LABS: ABG PH 7.33 (7.37-7.43); ALLENS TEST POSITIVE; INSPIRED O2 60%; PATIENT TEMP 96.8; VENTILATOR YES
--- NOTE | 2018-09-03 15:48 | NUR ---
DR HOOVER NOTIFIED OF ABG RESULTS NEW ORDERS TO INCREASE TIDAL VOLUME TO 500. RT NOTIFIED.
[2018-09-03] MEDS ORDERED: VANCOMYCIN INJECTION 0.1 MG in NS (IVPB) 250 ML IV SCH (16:30)
[2018-09-03] MEDS ORDERED: PIPERACILLIN/TAZO 4.5 GM/NS 100 ML IV NR ×2 (16:45)
[2018-09-03] MEDS ORDERED: VANCOMYCIN 1500 MG/NS 500 ML IVPB IV NR ×2 (17:00)
[2018-09-03] MEDS: inSUlin ASPART (NovoLOG) 1 UNIT/0.01 ML (CHARGE PER UNIT) SQ SCH (17:43)
[2018-09-03] MEDS: methylPREDNISolone 40 MG/ML (Solu-MEDROL) VIAL IV SCH (17:43)
[2018-09-03] MEDS: RT-ALBUTEROL/IPRATROPIUM 3 ML (DUONEB) VIAL INH SCH ×2 (18:36→23:17)
[2018-09-03] MEDS: PROPOFOL DRIP (ICU) 100 ML IV SCH (20:05)
[2018-09-03] MEDS: PIPERACILLIN/TAZOBACTAM (BULK) 4.5 GM in NS (IVPB) 100 ML IV SCH (22:07)
[2018-09-03] MEDS ORDERED: NOREPINEPHRINE 4 MG/4 ML (LEVOPHED) AMP IV ONE (23:18)
[2018-09-04] VITALS (32 sets, daily range): BP systolic 83–150; BP diastolic 53–97
[2018-09-04] MEDS ORDERED: VASOPRESSIN INJECTION 20 UNIT/ML VIAL ONE (00:25)
[2018-09-04] MEDS ORDERED: NS (IVPB) 100 ML ONE (00:25)
[2018-09-04] MEDS: methylPREDNISolone 40 MG/ML (Solu-MEDROL) VIAL IV SCH ×4 (00:40→18:25)
[2018-09-04] MEDS: inSUlin ASPART (NovoLOG) 1 UNIT/0.01 ML (CHARGE PER UNIT) SQ SCH ×4 (00:40→18:21)
[2018-09-04] MEDS ORDERED: NS IV 1000 ML 1,000 ML IV SCH ×2 (01:00→03:45)
[2018-09-04] MEDS ORDERED: VASOPRESSIN INJECTION 20 UNIT in NS (IVPB) 100 ML IV SCH (01:00)
[2018-09-04 01:16] LABS: ALBUMIN 2.8 GM/DL (3.2-4.5); MAGNESIUM 1.3 MG/DL (1.8-2.4); POTASSIUM 3.9 MMOL/L (3.6-5.0)
[2018-09-04 01:36] LABS: ABG BASE EXCESS -3.2 MMOL/L (-2.5-2.5); ABG OXYGEN SATURATION 95 % (94-100); ABG PCO2 53 MMHG (35-45); ABG PO2 73 MMHG (79-93); ABG TCO2 25.1 MMOL/L (21.0-31.0)
[2018-09-04 01:44] LABS: ALLENS TEST YES-POS; INSPIRED O2 40%; VENTILATOR YES
[2018-09-04 01:45] LABS: PATIENT TEMP 95.3
[2018-09-04 01:46] LABS: ABG PH 7.25 (7.37-7.43)
--- NOTE | 2018-09-04 01:54 | NUR ---
2318 Levophed initiated per patient SBP 70's. Initiated drip at 0.1mcg/kg/min. 2330 Drip placed on hold d/t patient HR in the 40's. 2355 Resumed Levophed drip at 0.05mcg/kg/min 0006 Levophed drip discontinued d/t bradycardia. Call placed to E ICU at this time to update on patient condition and reaction to Levophed. Orders for Vasopressin and stat labs + NS fluid bolus of 1L/1hr.
[2018-09-04 01:56] LABS: BASOPHILS % (AUTO) 0 % (0-10); EOSINOPHILS % (AUTO) 0 % (0-10); HEMATOCRIT 39 % (40-54); HEMOGLOBIN 12.2 G/DL (13.3-17.7); LYMPHOCYTES # (AUTO) 0.1 X 10^3 (1.0-4.0); LYMPHOCYTES % (AUTO) 2 % (12-44); MEAN CORPUSCULAR HEMOGLOBIN 29 PG (25-34); MEAN CORPUSCULAR HGB CONC 32 G/DL (32-36); MEAN CORPUSCULAR VOLUME 90 FL (80-99); MEAN PLATELET VOLUME 12.6 FL (7.4-10.4); MONOCYTES # (AUTO) 0.2 X 10^3 (0.0-1.0); MONOCYTES % (AUTO) 2 % (0-12); NEUTROPHILS # (AUTO) 7.3 X 10^3 (1.8-7.8); NEUTROPHILS % (AUTO) 96 % (42-75); PLATELET COUNT 134 10^3/uL (130-400); WHITE BLOOD COUNT 7.6 10^3/uL (4.3-11.0)
[2018-09-04] MEDS ORDERED: SODIUM BICARB 8.4% 50 MEQ/50 ML VIAL ONE (01:59)
[2018-09-04] MEDS ORDERED: NOREPINEPHRINE 4 MG in NS (IVPB) 250 ML IV SCH (02:00)
[2018-09-04 02:08] LABS: BUN/CREATININE RATIO 19; CALCIUM 7.9 MG/DL (8.5-10.1); CARBON DIOXIDE 20 MMOL/L (21-32); CHLORIDE 107 MMOL/L (98-107); CREATININE SERUM 1.18 MG/DL (0.60-1.30); GFR ESTIMATED > 60; GLUCOSE 143 MG/DL (70-105); MAGNESIUM 1.4 MG/DL (1.8-2.4); PHOSPHORUS 3.9 MG/DL (2.3-4.7); SODIUM 141 MMOL/L (135-145)
[2018-09-04] MEDS: RT-ALBUTEROL/IPRATROPIUM 3 ML (DUONEB) VIAL INH SCH ×6 (02:10→22:07)
[2018-09-04] MEDS: MAGNESIUM 1 GM/100 ML IVPB 100 ML IV SCH ×5 (02:11→05:13)
[2018-09-04] MEDS: POTASSIUM CL 10MEQ/50ML IVPB 50 ML IV SCH (02:15)
[2018-09-04] MEDS ORDERED: SODIUM BICARB 8.4% 50 MEQ/50 ML VIAL IV ONE (02:15)
[2018-09-04] MEDS: KCL 20 MEQ TAB (K-DUR) PO SCH (02:16)
[2018-09-04] MEDS: PROPOFOL DRIP (ICU) 100 ML IV SCH (04:11)
[2018-09-04 05:09] LABS: ABG BASE EXCESS -1.2 MMOL/L (-2.5-2.5); ABG OXYGEN SATURATION 93 % (94-100); ABG PCO2 43 MMHG (35-45); ABG PH 7.35 (7.37-7.43); ABG PO2 59 MMHG (79-93); ABG TCO2 25.2 MMOL/L (21.0-31.0)
[2018-09-04 05:10] LABS: ALLENS TEST YES-POS; INSPIRED O2 40%; PATIENT TEMP 96.3; VENTILATOR YES
[2018-09-04] MEDS: PIPERACILLIN/TAZOBACTAM (BULK) 4.5 GM in NS (IVPB) 100 ML IV SCH ×3 (05:15→21:20)
[2018-09-04] MEDS ORDERED: DEXMEDETOMIDINE INJECTION 200 MCG in NS (IVPB) 50 ML IV SCH (06:15)
--- NOTE | 2018-09-04 06:19 | Pulmonary Progress Note ---
Subjective Time Seen by a Provider: 06:30 Subjective/Events-last exam Pt had episodes of bradycardia and hypotension through the night. He is cur rently off Levophed. Sepsis Event Evaluation Height, Weight, BMI Height: 5'8.00" Weight: 150lbs. 1.0oz. 68.539690lb; 22.4 BMI Method:Stated Focused Exam Lactate Level 09/03/18 08:47: Lactic Acid Level 0.69 09/04/18 00:45: Lactic Acid Level 1.02 Exam Exam Vital Signs Date Time Temp Pulse Resp B/P (MAP) Pulse Ox O2 Delivery O2 Flow Rate FiO2 09/04/18 05:00 73 22 123/73 (90) 100 Mechanical Ventilator 40.00 09/04/18 04:11 66 22 150/97 100 Mechanical Ventilator 40.00 09/04/18 04:00 64 21 150/97 (114) 100 Mechanical Ventilator 40.00 09/04/18 03:45 67 21 121/80 (94) 100 Mechanical Ventilator 40.00 09/04/18 03:35 96.8 Mechanical Ventilator 40.00 09/04/18 03:20 96 Mechanical Ventilator 40 09/04/18 03:00 82 21 90/75 (80) 100 Mechanical Ventilator 40.00 09/04/18 02:17 96.3 09/04/18 02:13 81 9 112/69 (83) 100 Mechanical Ventilator 40.00 09/04/18 02:11 76 22 100 40 09/04/18 01:17 85 14 124/80 (95) 100 Mechanical Ventilator 40.00 09/04/18 01:00 79 09/04/18 00:30 80 21 89/64 (72) 100 Mechanical Ventilator 40.00 09/04/18 00:15 79 21 86/61 (69) 100 Mechanical Ventilator 40.00 09/04/18 00:06 54 22 100 Mechanical Ventilator 40.00 09/04/18 00:00 97.0 09/04/18 00:00 76 21 87/59 (68) 100 Mechanical Ventilator 40.00 09/04/18 00:00 100 Mechanical Ventilator 40 09/03/18 23:45 67 22 131/79 (96) 100 Mechanical Ventilator 40.00 09/03/18 23:42 43 24 151/89 (109) 100 Mechanical Ventilator 40.00 09/03/18 23:41 44 21 78/59 (65) 100 Mechanical Ventilator 40.00 09/03/18 23:30 70 21 78/59 (65) 100 Mechanical Ventilator 40.00 09/03/18 23:20 72 21 81/61 (68) 100 Mechanical Ventilator 40.00 09/03/18 23:18 68 22 77/57 (64) 100 Mechanical Ventilator 40.00 09/03/18 23:17 68 22 78/57 (64) 100 Mechanical Ventilator 40.00 09/03/18 23:17 68 22 100 50 09/03/18 23:00 69 21 90/62 (71) 100 Mechanical Ventilator 50.00 09/03/18 22:00 73 21 104/67 (79) 100 Mechanical Ventilator 50.00 09/03/18 21:00 73 21 110/66 (81) 100 Mechanical Ventilator 50.00 09/03/18 20:05 72 22 98/70 100 Mechanical Ventilator 50.00 09/03/18 20:00 100 Mechanical Ventilator 50 09/03/18 20:00 72 21 98/70 (79) 100 Mechanical Ventilator 50.00 09/03/18 19:55 97.3 73 22 125/74 (91) 100 Mechanical Ventilator 50.00 09/03/18 19:00 70 09/03/18 19:00 70 22 101/71 (81) 100 Mechanical Ventilator 60.00 09/03/18 18:34 68 22 100 50 09/03/18 18:00 69 23 104/62 (76) 100 Mechanical Ventilator 60.00 09/03/18 17:00 70 23 98/89 (92) 100 Mechanical Ventilator 60.00 09/03/18 16:45 97.4 09/03/18 16:30 100 Mechanical Ventilator 60 09/03/18 16:00 66 22 99/69 (79) 100 Mechanical Ventilator 60.00 09/03/18 15:12 Mechanical Ventilator 60.00 09/03/18 15:00 76 18 136/87 (103) 100 Mechanical Ventilator 100.00 09/03/18 14:58 75 22 100 50 09/03/18 14:00 76 21 115/72 (86) 100 Mechanical Ventilator 100.00 09/03/18 13:15 75 9 119/71 (87) 100 Mechanical Ventilator 100.00 09/03/18 13:00 77 17 107/71 (83) 100 Mechanical Ventilator 100.00 09/03/18 12:45 78 17 111/74 (86) 100 Mechanical Ventilator 100.00 09/03/18 12:30 82 11 100/68 (79) 100 Mechanical Ventilator 100.00 09/03/18 12:15 99 13 156/85 (108) 100 Mechanical Ventilator 100.00 09/03/18 12:15 99 09/03/18 12:08 100 09/03/18 12:05 100 Mechanical Ventilator 60 09/03/18 11:26 99.2 98 22 120/68 (85) 100 Mechanical Ventilator 09/03/18 11:05 145/61 09/03/18 08:45 99.1 98 20 87/52 (64) 97 Non Rebreather 10.00 I & O 09/04/18 07:00 Intake Total 8185 ml Output Total 1215 ml Balance 6970 ml Height & Weight Height: 5'8.00" Weight: 150lbs. 1.0oz. 68.020558qe; 22.4 BMI Method:Stated General Appearance: No Apparent Distress, WD/WN, Chronically ill, Thin, Other (sedated and intubated) HEENT: Other (dry mouth with no lesions visualized) Neck: Supple Respiratory: Crackles, Decreased Breath Sounds Cardiovascular: Regular Rate, Rhythm, No Edema Capillary Refill: Less Than 3 Seconds Extremity: Slow Capillary Refill Neurologic/Psychiatric: Other (sedated) Skin: Cool, Pallor, Other (buttox has ulcer present with surrounding erythema and warmth) Results Lab Laboratory Tests 09/03/18 08:47 09/04/18 00:45 Assessment/Plan Assessment/Plan Severe sepsis with septic shock probably secondary to pneumonia -Pitts cultures -IVF -Severe sepsis protocol -Continue vanco Zosyn Acute respiratory failure -PT self extubated yesterday. PT is doing well off vent. Severe COPD with AE -Solumedrol -SVNS Q4 Hypomag -replace MS hx and wheel chair bound -From [facility] ANNELISE HOOVER DO Sep 04, 2018 06:19
--- NOTE | 2018-09-04 07:41 | Diagnostic Imaging Report ---
INDICATION: Septic shock COMPARISON: 09/03/2018 ET tube mid thoracic trachea. OG catheter goes beneath the diaphragm. Right IJ at the lower SVC. There is no pneumothorax. While there are background changes of COPD, pneumonia superimposed in the medial right upper lobe is suspected correlate clinically. There is slight blunting of the right costophrenic angle and a tiny right pleural effusion is felt likely. Bullous disease and cyst formation the right greater than left upper lobe at the apices chronic finding. IMPRESSION: Severe chronic changes of bullous emphysema. Support apparatus in good alignment. Pneumonia in the right upper lobe suspected with tiny right pleural effusion likely. Dictated by: Dictated on workstation # [id number]
[2018-09-04] MEDS: NS IV 1000 ML 1,000 ML IV SCH ×3 (07:56→22:22)
--- NOTE | 2018-09-04 08:03 | Physical Therapy Progress Note ---
Therapy Progress Note Patient is currently on sedated and on ventilator. PT will assess patient when medically stable and able to actively participate with therapy. ABELARDO STOVALL PT Sep 04, 2018 08:03
[2018-09-04 08:09] LABS: ABG BASE EXCESS -3.8 MMOL/L (-2.5-2.5); ABG OXYGEN SATURATION 100 % (94-100); ABG PCO2 41 MMHG (35-45); ABG PO2 190 MMHG (79-93); ABG TCO2 22.5 MMOL/L (21.0-31.0)
[2018-09-04 08:11] LABS: ABG PH 7.33 (7.37-7.43); ALLENS TEST POSITIVE; INSPIRED O2 30%; PATIENT TEMP 97.4; VENTILATOR YES
--- NOTE | 2018-09-04 08:20 | Occ Therapy Progress Note ---
Therapy Progress Note OT order received, chart reviewed. Pt. is currently sedated and on ventilator support. Will continue to monitor pt. until off sedation. 0820 JANAE YUN OT Sep 04, 2018 08:20
[2018-09-04] MEDS: APIXABAN 5 MG (ELIQUIS) TABLET PO SCH ×2 (10:37→21:20)
--- NOTE | 2018-09-04 15:10 | NUR ---
AT 15:10 PATIENT SELF EXTUBATED. PLACED ON OXYMASK AT [address] HOOVER AND DR. LU NOTIFIED. PATIENT IS IN NO DISTRESS. SPO2 100%. RESPIRATIONS 15 WITH GOOD TIDAL VOLUME. SEDATION MEDICATIONS STOPPED IMMEDIATELY. RESTRAINTS REMOVED.
[2018-09-04] MEDS ORDERED: VANCOMYCIN 1250 MG/NS 250 ML IVPB IV SCH ×2 (17:00)
--- NOTE | 2018-09-04 20:58 | Progress Note-Hospitalist ---
Subjective HPI/CC On Admission Date Seen by Provider: Sep 04, 2018 Time Seen by Provider: 09:00 CC: Septic shock with respiratory failure HPI: This is a 68yoWM detention patient of Dr. Hernandez who presented to the ER with altered mental status and low BP found to be in septic shock from right lower lobe pneumonia, ABG revealed CO2 retention of 77 requiring intubation prior to transport to the ICU under my service and consulted Dr. Whitley. He was placed on aggressive IV fluid for septic shock protocol, placed on Levophed pressor therapy and Pt has improved immensely since arrival. At this current time, Pt is sedated, vitals are now stable and will be maintained on ventilator per Dr. Whitley's expertise. Subjective/Events-last exam Pt still intubated. Weaning protocol followed. BP remains stable. Reviewed meds and labs. Appreciate Dr. Fitzgerald expertise. BCx with Staph coag negative Focused Exam Lactate Level 09/03/18 08:47: Lactic Acid Level 0.69 09/04/18 00:45: Lactic Acid Level 1.02 Objective Exam Vital Signs Vital Signs Date Time Temp Pulse Resp B/P (MAP) Pulse Ox O2 Delivery O2 Flow Rate FiO2 09/04/18 19:45 99.2 Nasal Cannula 2.50 09/04/18 19:20 97 09/04/18 19:00 84 09/04/18 18:00 11 145/80 (101) 09/04/18 14:44 21 Capillary Refill : Less Than 3 Seconds General Appearance: No Apparent Distress, WD/WN, Chronically ill, Thin, Other (sedated and intubated) HEENT: Other (dry mouth with no lesions visualized) Neck: Supple Respiratory: Crackles, Decreased Breath Sounds Cardiovascular: Regular Rate, Rhythm, No Edema Gastrointestinal: Non Tender (R sided colostomy placed with SQ device vs hernia on L abdomen), Soft Rectal: Deferred Back: Normal Inspection Extremity: Slow Capillary Refill Neurologic/Psychiatric: Other (sedated) Skin: Cool, Pallor, Other (buttox has ulcer present with surrounding erythema and warmth) Results/Procedures Lab Laboratory Tests 09/04/18 00:45 Patient resulted labs reviewed. Assessment/Plan Assessment and Plan Assess & Plan/Chief Complaint Assessment: VDRF MS Pneumonia Plan: Vent wean Pneumonia treatment Diagnosis/Problems Diagnosis/Problems (1) Septic shock Status: Acute (2) Respiratory failure Status: Acute Qualifiers: Chronicity: acute Respiratory failure complication: hypercapnia Qualified Codes: J96.02 - Acute respiratory failure with hypercapnia (3) HCAP (healthcare-associated pneumonia) Status: Acute (4) Hypercarbia Status: Acute (5) RESPIRATORY FAILURE, UNSP, UNSP W HYPOXIA OR HYPERCAPNIA Status: Acute (6) Hypotension Status: Chronic Qualifiers: Hypotension type: unspecified hypotension type Qualified Codes: I95.9 - Hypotension, unspecified (7) Wheelchair dependence Status: Chronic (8) Multiple sclerosis Status: Chronic (9) Chronic pain Status: Chronic Qualifiers: Chronic pain type: chronic pain syndrome Qualified Codes: G89.4 - Chronic pain syndrome (10) Atrial fibrillation Status: Chronic Qualifiers: Atrial fibrillation type: paroxysmal Qualified Codes: I48.0 - Paroxysmal atrial fibrillation (11) FH: CHF (congestive heart failure) (12) Smoker Status: Chronic Clinical Quality Measures DVT/VTE Risk/Contraindication: Risk Factor Score Per Nursin RFS Level Per Nursing on Admit: 4+=Very High CORINE LU DO Sep 04, 2018 20:58
[2018-09-04] MEDS ORDERED: PREGABALIN 75 MG (LYRICA) CAP ONE (21:08)
[2018-09-04] MEDS ORDERED: morphine ER 30 MG (MS CONTIN) TAB PO ONE (21:08)
[2018-09-04] MEDS ORDERED: ACETAMINOPHEN 500 MG TAB (TYLENOL) ONE (21:08)
[2018-09-04] MEDS: PREGABALIN 75 MG (LYRICA) CAP PO SCH (21:20)
[2018-09-04] MEDS: morphine ER 30 MG (MS CONTIN) TAB PO SCH (21:20)
[2018-09-04] MEDS ORDERED: IBUPROFEN TABLET 200 MG TAB PO PRN (22:00)
[2018-09-04] MEDS ORDERED: ACETAMINOPHEN 500 MG TAB (TYLENOL) PO PRN (22:00)
[2018-09-05] VITALS (15 sets, daily range): BP systolic 119–170; BP diastolic 64–96
[2018-09-05] MEDS: methylPREDNISolone 40 MG/ML (Solu-MEDROL) VIAL IV SCH ×5 (00:04→23:42)
[2018-09-05 02:59] LABS: BASOPHILS % (AUTO) 0 % (0-10); EOSINOPHILS % (AUTO) 0 % (0-10); HEMATOCRIT 35 % (40-54); HEMOGLOBIN 11.5 G/DL (13.3-17.7); LYMPHOCYTES # (AUTO) 0.2 X 10^3 (1.0-4.0); LYMPHOCYTES % (AUTO) 2 % (12-44); MEAN CORPUSCULAR HGB CONC 33 G/DL (32-36); MEAN CORPUSCULAR VOLUME 88 FL (80-99); MONOCYTES # (AUTO) 0.2 X 10^3 (0.0-1.0); MONOCYTES % (AUTO) 3 % (0-12); NEUTROPHILS # (AUTO) 6.9 X 10^3 (1.8-7.8); NEUTROPHILS % (AUTO) 95 % (42-75); PLATELET COUNT 154 10^3/uL (130-400); RED CELL DISTRIBUTION WIDTH 15.4 % (10.0-14.5); WHITE BLOOD COUNT 7.3 10^3/uL (4.3-11.0)
[2018-09-05 03:02] LABS: MEAN CORPUSCULAR HEMOGLOBIN 28 PG (25-34)
[2018-09-05 03:17] LABS: BUN/CREATININE RATIO 25; CALCIUM 8.1 MG/DL (8.5-10.1); CARBON DIOXIDE 23 MMOL/L (21-32); CHLORIDE 109 MMOL/L (98-107); CREATININE SERUM 0.89 MG/DL (0.60-1.30); GFR ESTIMATED > 60; GLUCOSE 143 MG/DL (70-105); PHOSPHORUS 2.3 MG/DL (2.3-4.7); POTASSIUM 3.2 MMOL/L (3.6-5.0); SODIUM 142 MMOL/L (135-145)
[2018-09-05] MEDS: POTASSIUM CL 10MEQ/50ML IVPB 50 ML IV SCH ×9 (04:24→08:04)
[2018-09-05] MEDS: KCL 20 MEQ TAB (K-DUR) PO SCH (05:11)
[2018-09-05] MEDS: MAGNESIUM 1 GM/100 ML IVPB 100 ML IV SCH (05:11)
[2018-09-05] MEDS: PIPERACILLIN/TAZOBACTAM (BULK) 4.5 GM in NS (IVPB) 100 ML IV SCH ×3 (05:48→21:20)
[2018-09-05] MEDS: morphine ER 30 MG (MS CONTIN) TAB PO SCH ×3 (05:48→21:20)
--- NOTE | 2018-09-05 06:55 | Diagnostic Imaging Report ---
Indication: Shortness of breath. Portable chest 3:57 AM ET tubes and NG tubes have been removed since previous day. Right IJ central line remains in place. There are emphysematous changes in the lungs. There is some underlying interstitial fibrosis. There is no effusion or pneumothorax. Impression: Emphysema with interstitial fibrosis. No change from previous day. Dictated by: Dictated on workstation # [id number]
[2018-09-05] MEDS: RT-ALBUTEROL/IPRATROPIUM 3 ML (DUONEB) VIAL INH SCH ×5 (07:26→22:33)
[2018-09-05] MEDS: PREGABALIN 75 MG (LYRICA) CAP PO SCH ×3 (08:02→21:20)
[2018-09-05] MEDS: APIXABAN 5 MG (ELIQUIS) TABLET PO SCH ×2 (08:02→21:20)
--- NOTE | 2018-09-05 10:33 | Progress Note-Hospitalist ---
Subjective HPI/CC On Admission Date Seen by Provider: Sep 05, 2018 Time Seen by Provider: 09:45 CC: Septic shock with respiratory failure HPI: This is a 68yoWM longterm patient of Dr. Hernandez who presented to the ER with altered mental status and low BP found to be in septic shock from right lower lobe pneumonia, ABG revealed CO2 retention of 77 requiring intubation prior to transport to the ICU under my service and consulted Dr. Whitley. He was placed on aggressive IV fluid for septic shock protocol, placed on Levophed pressor therapy and Pt has improved immensely since arrival. At this current time, Pt is sedated, vitals are now stable and will be maintained on ventilator per Dr. Whitley's expertise. Subjective/Events-last exam Patient now extubated Talked to him about his severity of COPD and continues to smoke May be an inpatient rehabilitation candidate Remains optimistic he will recover Colostomy in place Talked about intestinal gas but bothers him but that is chronic in nature Wheelchair-bound status post the time but he has been known to walk with a walker Review of Systems General: Fatigue Pulmonary: Dyspnea Focused Exam Lactate Level 09/03/18 08:47: Lactic Acid Level 0.69 09/04/18 00:45: Lactic Acid Level 1.02 Objective Exam Vital Signs Vital Signs Date Time Temp Pulse Resp B/P (MAP) Pulse Ox O2 Delivery O2 Flow Rate FiO2 09/05/18 11:52 94 Nasal Cannula 1.00 09/05/18 11:00 72 7 165/89 (114) 09/05/18 00:03 98.0 09/04/18 14:44 21 Capillary Refill : Less Than 3 Seconds General Appearance: No Apparent Distress, WD/WN, Chronically ill, Thin HEENT: Other (dry mouth with no lesions visualized) Neck: Supple Respiratory: No Accessory Muscle Use, No Respiratory Distress, Crackles, Decrea sed Breath Sounds Cardiovascular: Regular Rate, Rhythm, No Edema Gastrointestinal: Non Tender (R sided colostomy placed with SQ device vs hernia on L abdomen), Soft Rectal: Deferred Back: Normal Inspection Extremity: Slow Capillary Refill Neurologic/Psychiatric: Other (sedated) Skin: Cool, Pallor, Other (buttox has ulcer present with surrounding erythema and warmth) Results/Procedures Lab Laboratory Tests 09/05/18 02:50 Patient resulted labs reviewed. Assessment/Plan Assessment and Plan Assess & Plan/Chief Complaint Assessment: VDRF s/p extubation MS Pneumonia Plan: Dr Whitley consultation is appreciated IRF Pneumonia treatment Diagnosis/Problems Diagnosis/Problems (1) Septic shock Status: Resolved Resolution Date/Time: 09/05/18 @ 12:18 (2) Respiratory failure Status: Resolved Qualifiers: Chronicity: acute Respiratory failure complication: hypercapnia Qualified Codes: J96.02 - Acute respiratory failure with hypercapnia Resolution Date/Time: 09/05/18 @ 12:18 (3) HCAP (healthcare-associated pneumonia) Status: Acute (4) Hypercarbia Status: Acute (5) RESPIRATORY FAILURE, UNSP, UNSP W HYPOXIA OR HYPERCAPNIA Status: Acute (6) Hypotension Status: Chronic Qualifiers: Hypotension type: unspecified hypotension type Qualified Codes: I95.9 - Hypotension, unspecified (7) Wheelchair dependence Status: Chronic (8) Multiple sclerosis Status: Chronic (9) Chronic pain Status: Chronic Qualifiers: Chronic pain type: chronic pain syndrome Qualified Codes: G89.4 - Chronic pain syndrome (10) Atrial fibrillation Status: Chronic Qualifiers: Atrial fibrillation type: paroxysmal Qualified Codes: I48.0 - Paroxysmal atrial fibrillation (11) FH: CHF (congestive heart failure) (12) Smoker Status: Chronic (13) COPD (chronic obstructive pulmonary disease) Status: Chronic Qualifiers: COPD type: unspecified COPD Qualified Codes: J44.9 - Chronic obstructive pulmonary disease, unspecified (14) Smoker Status: Chronic Clinical Quality Measures DVT/VTE Risk/Contraindication: Risk Factor Score Per Nursin RFS Level Per Nursing on Admit: 4+=Very High CORINE LU DO Sep 05, 2018 10:33
--- NOTE | 2018-09-05 11:54 | Physical Therapy Evaluation ---
PT Evaluation-General Medical Diagnosis Admission Date Sep 03, 2018 at 10:56 Medical Diagnosis: septic shock/respiratory failure Onset Date: Sep 03, 2018 Therapy Diagnosis Therapy Diagnosis: debility/weakness Height/Weight Height (Feet): 5 Height (Inches): 8.00 Weight (Pounds): 169 Weight (Ounces): 6.0 Precautions Precautions/Isolations: Fall Prevention, Standard Precautions Referral Physician: Angi Reason for Referral: Evaluation/Treatment Medical History Pertinent Medical History: Alcoholism, COPD Additional Medical History MS/nonambulatory Current History EMS secondary to decreased mentation Reviewed History: Yes Social History Home: Group Home Prior/Core FIM Prior Level of Function Therapy Code Descriptions/Definitions Functional [place] Measure: 0=Not Assessed/NA 4=Minimal Assistance 1=Total Assistance 5=Supervision or Setup 2=Maximal Assistance 6=Modified [place] 3=Moderate Assistance 7=Complete [place] Therapy Quality Codes: 6 Independent with activity with or without an assistive device 5 Patient requires set up or clean up by helper. Patient completes activity by themselves 4 Supervision or touching assist (CGA). Mena provide cues , steadying assist 3 The helper provides less than half the effort to complete the activity 2 The helper provides more than half the effort to complete the activity 1 Dependent. The helper does all the effort to complete an activity 7 Patient refused to complete or attempt activity 9 The patient did not perform the activity before the current illness or injury 88 Not attempted due to Medical conditions or safety concerns Functional Abilities and Goals: Independent: Patient completed the activities by him/herself, with or without an assistive device, with no assistance from a helper. Needed Some Help: Patient needed partial assistance from another person to complete activities. Dependent: A helper completed the activities for the patient. Unknown: Not Applicable: Bed Mobility: 2 Transfers (B,C,W/C) (FIM): 1 Wheelchair Mobility: 3 Prior Devices Use: Manual wheelchair patient utilizes a pole at [place] to assist on transfer bed to w/c and requires assistance with all ADL's PLOF PT Evaluation-Current Subjective Patient is very talkative, however adamantly declined OOB activity. Did agree to bed activity. Pain Numeric Pain Scale: 0-No Pain Location: No Pain Reported Objective Patient Orientation: Person, Time, Situation Problem Solving: Poor Attachments: Oxygen, IV ROM/Strength ROM Lower Extremities bilateral LE WFL with noted edema bilateral feet Strength Lower Extremities 2-/5 grossly bilaterally due to MS with noted significant atrophy Integumentary/Posture Integumentary refer to nursing notes Neuromuscular (Tone, Coordination, Reflexes) MS with noted atrophy bilateral LE's with significant muscle wasting/weakness Sensory Vision: Functional Hearing: Functional Sensation Right Lower Extremit: Impaired Sensation Left Lower Extremity: Impaired Transfers Therapy Code Descriptions/Definitions Functional [place] Measure: 0=Not Assessed/NA 4=Minimal Assistance 1=Total Assistance 5=Supervision or Setup 2=Maximal Assistance 6=Modified [place] 3=Moderate Assistance 7=Complete [place] Transfers (B, C, W/C) (FIM): 4 Scootin Rollin Treatment bilateral LE exercises AAROM in supine 15 reps AP, HS, SLR, abd/add Assessment/Needs 68 y.o. male, will be seen short term by skilled PT to address bed mobility and transfers. Patient requires assistance PLOF at TX per his report. Patient currently declined OOB activity. RN notified. Patient is nonambulatory PLOF. Rehab Potential: Fair PT Residential Goals Residential Goals PT Residential Goals Time Frame: Sep 05, 2018 Transfers (B,C,W/C) (FIM): 4 PT Plan Problem List Problem List: Activity Tolerance, Functional Strength, Safety, Transfer, Bed Mobility Treatment/Plan Treatment Plan: Continue Plan of Care Treatment Plan: Bed Mobility, Education, Functional Activity Brett, Functional Strength, Safety, Therapeutic Exercise, Transfers Treatment Duration: Sep 12, 2018 Frequency: 5 times per week Estimated Hrs Per Day: .25 hour per day Patient and/or Family Agrees t: Yes Discharge Recommendations Therapy D/C Recommendations: Group Home Placement, Retirement (TCU/NH) Time/GCodes Time In: 1105 Time Out: 1120 Total Billed Treatment Time: 15 Total Billed Treatment 1 visit EVMod 15 min ABELARDO STOVALL PT Sep 05, 2018 11:54
--- NOTE | 2018-09-05 14:54 | NUR ---
IRF Evaluation Order received to evaluate patient for the ARU. Patient presents with VDRF; s/p extubation, MS and PNA. Prior to hospitalization the patient was residing at [facility] in [place], [place]. He was requiring assistance with ADLs (bathing and LE ADL; was able to complete UE ADLs while seated), and due to non-ambulatory status, patient was mobile with a manual wheelchair, without assistance. Currently, the patient requires minimal assistance with transfers and supervision for eating and grooming. Chart review findings discussed with Dr. Mae; patient accepted. Anticipate admission, 09/07/18. Met with patient to discuss details of rehabilitation program. Patient undecided, at this time, and states he will think about it over the weekend. Thank you for this referral.
--- NOTE | 2018-09-05 15:00 | Occupational Therapy Eval ---
OT Evaluation-General/PLF Medical Diagnosis Admission Date Sep 03, 2018 at 10:56 Medical Diagnosis: septic shock/respiratory failure Onset Date: Sep 03, 2018 Therapy Diagnosis Therapy Diagnosis: decreased self care skills Height/Weight Height (Feet): 5 Height (Inches): 8.00 Weight (Pounds): 169 Weight (Ounces): 6.0 Precautions Precautions/Isolations: Fall Prevention, Standard Precautions Safety Interventions: Reorient-PRN Referral Physician: Angi Medical History Pertinent Medical History: Alcoholism, COPD Additional Medical History MS, irregular heart beat, Current History Pt admitted secondary to AMS. Social History Home: Skilled Nursing ADL-Prior Level of Function Therapy Code Descriptions/Definitions Functional [place] Measure: 0=Not Assessed/NA 4=Minimal Assistance 1=Total Assistance 5=Supervision or Setup 2=Maximal Assistance 6=Modified [place] 3=Moderate Assistance 7=Complete [place] Therapy Quality Codes: 6 Independent with activity with or without an assistive device 5 Patient requires set up or clean up by helper. Patient completes activity by themselves 4 Supervision or touching assist (CGA). Ruby provide cues , steadying assist 3 The helper provides less than half the effort to complete the activity 2 The helper provides more than half the effort to complete the activity 1 Dependent. The helper does all the effort to complete an activity 7 Patient refused to complete or attempt activity 9 The patient did not perform the activity before the current illness or injury 88 Not attempted due to Medical conditions or safety concerns Functional Abilities and Goals: Independent: Patient completed the activities by him/herself, with or without an assistive device, with no assistance from a helper. Needed Some Help: Patient needed partial assistance from another person to complete activities. Dependent: A helper completed the activities for the patient. Unknown: Not Applicable: ADL PLOF Comments Pt states he was assisted with bathing and LE ADL. States he was able to complete UE ADLs while seated. Used manual w/c and states he was able to propel w/c without assist. Self Care: Needed Some Help Functional Cognition: Needed Some Help OT Current Status Subjective Pt in bed, agrees to therapy with encouragement. Pt reports 5/10 pain in feet. Mental Status/Objective Patient Orientation: Person Attachments: Colostomy/Ileostomy, Frankel Catheter, IV, Oxygen Current Hand Dominance: Left Upper Extremity ROM Grossly WFL Upper Extremity Coordination Fair Upper Extremity Strength generalized weakness ADL-Treatment ADL-Current Pt completed UE assessment while in bed. Washed face with set up. Pt declined OOB activity at this time. Education provided regarding role of OT and plan of care. Pt agreeable. Pt in bed with needs met after session. Therapy Code Descriptions/Definitions Functional [place] Measure: 0=Not Assessed/NA 4=Minimal Assistance 1=Total Assistance 5=Supervision or Setup 2=Maximal Assistance 6=Modified [place] 3=Moderate Assistance 7=Complete [place] Therapy Quality Codes: 6 Independent with activity with or without an assistive device 5 Patient requires set up or clean up by helper. Patient completes activity by themselves 4 Supervision or touching assist (CGA). Ruby provide cues , steadying assist 3 The helper provides less than half the effort to complete the activity 2 The helper provides more than half the effort to complete the activity 1 Dependent. The helper does all the effort to complete an activity 7 Patient refused to complete or attempt activity 9 The patient did not perform the activity before the current illness or injury 88 Not attempted due to Medical conditions or safety concerns Eating (FIM): 5 (by report) Grooming (FIM): 5 (washing face only) Education OT Patient Education: Rehab process Teaching Recipient: Patient Teaching Methods: Discussion Response to Teaching: Reinforcement Needed OT Short Term Goals Short Term Goals 1=Demonstrate adherence to instructed precautions during ADL tasks. 2=Patient will verbalize/demonstrate understanding of assistive devices/modifications for ADL. 3=Patient will improve strength/tolerance for activity to enable patient to perform ADL's. OT Banquet Steward Goals Banquet Steward Goals Time Frame: Sep 13, 2018 Grooming(FIM): 5 Bathing(FIM): 3 Upper Body Dressing(FIM): 5 Additional Goals: 1-Demonstrate ADL Tasks, 2-Verbalize Understanding, 3- ImproveStrength/Brett 1=Demonstrate adherence to instructed precautions during ADL tasks. 2=Patient will verbalize/demonstrate understanding of assistive devices/modifications for ADL. 3=Patient will improve strength/tolerance for activity to enable patient to perform ADL's. OT Education/Plan Problem List/Assessment Assessment: Decreased Activ Tolerance, Decreased UE Strength, Dependent Transfers, Impaired I ADL's, Impaired Self-Care Skills Pt to benefit from skilled OT while hospitalized to maximize level of independence and allow safe discharge. Discharge Recommendations Plan/Recommendations: Continue POC Treatment Plan/Plan of Care Treatment,Training & Education: Yes Patient would benefit from OT for education, treatment and training to promote independence in ADL's, mobility, safety and/or upper extremity function for ADL's. Plan of Care: ADL Retraining, Functional Mobility, Group Exercise/Act as Ind Treatment Duration: Sep 13, 2018 Frequency: 5 times per week Estimated Hrs Per Day: .25 hour per day Rehab Potential: Fair Time/GCodes Start Time: 14:01 Stop Time: 14:26 Total Time Billed (hr/min): 25 Billed Treatment Time 1 visit, SUN(25minutes) BRIAN CRAIN OT Sep 05, 2018 15:00
[2018-09-05] MEDS ORDERED: TROUGH ORDER-PHARMACY XX NR (16:00)
--- NOTE | 2018-09-05 17:00 | NUR ---
RECEIVED FROM ICU PER BED, ALERT, DENIES PAIN OR SOB, CALL LIGHT WITHIN REACH, IV SITE RIGHT IJ WITHOUT REDNESS OR SWELLING, SALINE LOCK INTACT IN BOTH ARMS, MOROCHO PATENT WITH CLEAR YELLOW URINE, ILEOSTOMY BAG INTACT WITH LIQUID COLOR STOOL, O2 ON PER NC AT 2 LITERS, HEEL PROTECTORS ON, SCD'S APPLIED, FEET EDEMATOUS.
[2018-09-06 00:30] VITALS: BP 154/78
[2018-09-06] MEDS: RT-ALBUTEROL/IPRATROPIUM 3 ML (DUONEB) VIAL INH SCH ×6 (01:17→22:07)
[2018-09-06 04:03] LABS: BASOPHILS % (AUTO) 0 % (0-10); EOSINOPHILS % (AUTO) 0 % (0-10); HEMATOCRIT 37 % (40-54); HEMOGLOBIN 11.8 G/DL (13.3-17.7); LYMPHOCYTES # (AUTO) 0.2 X 10^3 (1.0-4.0); LYMPHOCYTES % (AUTO) 2 % (12-44); MEAN CORPUSCULAR HEMOGLOBIN 28 PG (25-34); MEAN CORPUSCULAR HGB CONC 32 G/DL (32-36); MEAN CORPUSCULAR VOLUME 87 FL (80-99); MEAN PLATELET VOLUME 11.8 FL (7.4-10.4); MONOCYTES # (AUTO) 0.2 X 10^3 (0.0-1.0); MONOCYTES % (AUTO) 2 % (0-12); NEUTROPHILS # (AUTO) 9.1 X 10^3 (1.8-7.8); NEUTROPHILS % (AUTO) 96 % (42-75); PLATELET COUNT 140 10^3/uL (130-400); RED CELL DISTRIBUTION WIDTH 15.3 % (10.0-14.5); WHITE BLOOD COUNT 9.5 10^3/uL (4.3-11.0)
[2018-09-06 04:26] LABS: BUN/CREATININE RATIO 23; CALCIUM 8.4 MG/DL (8.5-10.1); CARBON DIOXIDE 24 MMOL/L (21-32); CHLORIDE 106 MMOL/L (98-107); CREATININE SERUM 0.91 MG/DL (0.60-1.30); GFR ESTIMATED > 60; GLUCOSE 158 MG/DL (70-105); MAGNESIUM 1.6 MG/DL (1.8-2.4); PHOSPHORUS 1.8 MG/DL (2.3-4.7); SODIUM 141 MMOL/L (135-145)
[2018-09-06 04:39] VITALS: BP 175/88
[2018-09-06] MEDS: methylPREDNISolone 40 MG/ML (Solu-MEDROL) VIAL IV SCH ×4 (05:23→23:00)
[2018-09-06] MEDS: PIPERACILLIN/TAZOBACTAM (BULK) 4.5 GM in NS (IVPB) 100 ML IV SCH ×3 (05:23→23:00)
[2018-09-06] MEDS: morphine ER 30 MG (MS CONTIN) TAB PO SCH ×3 (05:23→21:10)
[2018-09-06 08:00] VITALS: BP 114/84
--- NOTE | 2018-09-06 08:04 | Diagnostic Imaging Report ---
INDICATION: Shortness of breath. COMPARISON: 09/05/2018. FINDINGS: Single view of the chest demonstrates persistent but slightly decreased bilateral pulmonary infiltrates. Trace effusions are unchanged. The heart is prominent without overt pulmonary edema. There is no pneumothorax. Right IJ catheter is stable. IMPRESSION: Slightly improved aeration both lungs. Dictated by: Dictated on workstation # [id number]
[2018-09-06] MEDS: PREGABALIN 75 MG (LYRICA) CAP PO SCH ×3 (09:00→21:10)
[2018-09-06] MEDS: APIXABAN 5 MG (ELIQUIS) TABLET PO SCH ×2 (09:00→21:10)
[2018-09-06 12:00] VITALS: BP 136/75
--- NOTE | 2018-09-06 12:42 | Progress Note-Hospitalist ---
Subjective HPI/CC On Admission Date Seen by Provider: Sep 06, 2018 Time Seen by Provider: 10:30 CC: Septic shock with respiratory failure HPI: This is a 68yoWM intermediate patient of Dr. Hernandez who presented to the ER with altered mental status and low BP found to be in septic shock from right lower lobe pneumonia, ABG revealed CO2 retention of 77 requiring intubation prior to transport to the ICU under my service and consulted Dr. Whitley. He was placed on aggressive IV fluid for septic shock protocol, placed on Levophed pressor therapy and Pt has improved immensely since arrival. At this current time, Pt is sedated, vitals are now stable and will be maintained on ventilator per Dr. Whitley's expertise. Subjective/Events-last exam Patient doing well Cough is productive Lying on his left side to keep pressure off his coccyx Eating and drinking well Colostomy functioning well Nebulizer treatments maintained Smoking cessation discussed Review of Systems General: Fatigue Pulmonary: Dyspnea, Cough Focused Exam Lactate Level 09/04/18 00:45: Lactic Acid Level 1.02 Objective Exam Vital Signs Vital Signs Date Time Temp Pulse Resp B/P (MAP) Pulse Ox O2 Delivery O2 Flow Rate FiO2 09/06/18 15:03 93 Nasal Cannula 2.00 09/06/18 12:00 98.1 80 20 136/75 (95) 09/04/18 14:44 21 Capillary Refill : Less Than 3 Seconds General Appearance: No Apparent Distress, WD/WN, Chronically ill, Thin HEENT: Other (dry mouth with no lesions visualized) Neck: Supple Respiratory: No Accessory Muscle Use, No Respiratory Distress, Crackles, Decreased Breath Sounds Cardiovascular: Regular Rate, Rhythm, No Edema Gastrointestinal: Non Tender (R sided colostomy placed with SQ device vs hernia on L abdomen), Soft Rectal: Deferred Back: Normal Inspection Extremity: Slow Capillary Refill Neurologic/Psychiatric: Other (sedated) Skin: Cool, Pallor, Other (buttox has ulcer present with surrounding erythema and warmth) Results/Procedures Lab Laboratory Tests 09/06/18 03:00 Patient resulted labs reviewed. Assessment/Plan Assessment and Plan Assess & Plan/Chief Complaint Assessment: VDRF s/p extubation MS Pneumonia Colostomy Plan: Dr Whitley consultation is appreciated IRF? Pneumonia treatment Diagnosis/Problems Diagnosis/Problems (1) Septic shock Status: Resolved Resolution Date/Time: 09/05/18 @ 12:18 (2) Respiratory failure Status: Resolved Qualifiers: Chronicity: acute Respiratory failure complication: hypercapnia Qualified Codes: J96.02 - Acute respiratory failure with hypercapnia Resolution Date/Time: 09/05/18 @ 12:18 (3) HCAP (healthcare-associated pneumonia) Status: Acute (4) Hypercarbia Status: Acute (5) RESPIRATORY FAILURE, UNSP, UNSP W HYPOXIA OR HYPERCAPNIA Status: Acute (6) Hypotension Status: Chronic Qualifiers: Hypotension type: unspecified hypotension type Qualified Codes: I95.9 - Hypotension, unspecified (7) Wheelchair dependence Status: Chronic (8) Multiple sclerosis Status: Chronic (9) Chronic pain Status: Chronic Qualifiers: Chronic pain type: chronic pain syndrome Qualified Codes: G89.4 - Chronic pain syndrome (10) Atrial fibrillation Status: Chronic Qualifiers: Atrial fibrillation type: paroxysmal Qualified Codes: I48.0 - Paroxysmal atrial fibrillation (11) FH: CHF (congestive heart failure) (12) Smoker Status: Chronic (13) COPD (chronic obstructive pulmonary disease) Status: Chronic Qualifiers: COPD type: unspecified COPD Qualified Codes: J44.9 - Chronic obstructive pulmonary disease, unspecified (14) Smoker Status: Chronic Clinical Quality Measures DVT/VTE Risk/Contraindication: Risk Factor Score Per Nursin RFS Level Per Nursing on Admit: 4+=Very High CORINE LU DO Sep 06, 2018 12:42
[2018-09-06] MEDS ORDERED: ONDANSETRON 4 MG/2 ML (SDV) Z0FRAN IVP PRN (12:45)
[2018-09-06 16:00] VITALS: BP 153/70
[2018-09-06 20:03] VITALS: BP 154/80
[2018-09-07 00:44] VITALS: BP 132/79
[2018-09-07] MEDS: RT-ALBUTEROL/IPRATROPIUM 3 ML (DUONEB) VIAL INH SCH ×6 (02:18→22:36)
[2018-09-07] MEDS: PIPERACILLIN/TAZOBACTAM (BULK) 4.5 GM in NS (IVPB) 100 ML IV SCH ×3 (05:57→21:31)
[2018-09-07] MEDS: morphine ER 30 MG (MS CONTIN) TAB PO SCH ×3 (05:57→21:31)
[2018-09-07] MEDS: methylPREDNISolone 40 MG/ML (Solu-MEDROL) VIAL IV SCH ×4 (05:57→23:57)
--- NOTE | 2018-09-07 06:21 | Pulmonary Progress Note ---
Subjective Time Seen by a Provider: 06:21 Subjective/Events-last exam PT is doing better Sepsis Event Evaluation Height, Weight, BMI Height: 5'8.00" Weight: 157lbs. 2.0oz. 71.643944cb; 22.4 BMI Method:Stated Exam Exam Vital Signs Date Time Temp Pulse Resp B/P (MAP) Pulse Ox O2 Delivery O2 Flow Rate FiO2 09/07/18 02:18 94 Nasal Cannula 2.00 09/07/18 00:44 97.2 76 17 132/79 (96) 95 Nasal Cannula 2.00 09/06/18 22:07 98 Nasal Cannula 2.00 09/06/18 21:00 Nasal Cannula 1.00 09/06/18 20:03 97.5 80 18 154/80 (104) 95 Nasal Cannula 2.00 09/06/18 18:53 93 Nasal Cannula 2.00 09/06/18 16:15 97.8 09/06/18 16:00 97.8 73 18 153/70 (97) 95 Nasal Cannula 2.00 09/06/18 15:03 93 Nasal Cannula 2.00 09/06/18 12:00 98.1 80 20 136/75 (95) 96 Nasal Cannula 2.00 09/06/18 10:52 97 Nasal Cannula 2.00 09/06/18 09:00 Nasal Cannula 1.00 09/06/18 08:00 97.5 76 20 114/84 (94) 96 Nasal Cannula 2.00 I & O 09/07/18 07:00 Intake Total 2060 ml Output Total 3850 ml Balance -1790 ml Height & Weight Height: 5'8.00" Weight: 157lbs. 2.0oz. 71.953187sf; 22.4 BMI Method:Stated General Appearance: No Apparent Distress, WD/WN, Chronically ill, Thin HEENT: Other (dry mouth with no lesions visualized) Neck: Supple Respiratory: No Accessory Muscle Use, No Respiratory Distress, Crackles, Decreased Breath Sounds Cardiovascular: Regular Rate, Rhythm, No Edema Capillary Refill: Less Than 3 Seconds Extremity: Slow Capillary Refill Neurologic/Psychiatric: Other (sedated) Skin: Cool, Pallor, Other (buttox has ulcer present with surrounding erythema and warmth) Results Lab Laboratory Tests 09/06/18 03:00 Assessment/Plan Assessment/Plan Severe sepsis with septic shock probably secondary to pneumonia -Sylwia hernandez Acute respiratory failure -s/p self extubation Severe COPD with AE -Solumedrol -SVNS Q4 Hypomag -replace MS hx and wheel chair bound -From [facility] ANNELISE HOOVER DO Sep 07, 2018 06:21
--- NOTE | 2018-09-07 06:22 | Pulmonary Progress Note ---
Sepsis Event Evaluation Height, Weight, BMI Height: 5'8.00" Weight: 157lbs. 2.0oz. 71.459285pl; 22.4 BMI Method:Stated Exam Exam Vital Signs Date Time Temp Pulse Resp B/P (MAP) Pulse Ox O2 Delivery O2 Flow Rate FiO2 09/07/18 02:18 94 Nasal Cannula 2.00 09/07/18 00:44 97.2 76 17 132/79 (96) 95 Nasal Cannula 2.00 09/06/18 22:07 98 Nasal Cannula 2.00 09/06/18 21:00 Nasal Cannula 1.00 09/06/18 20:03 97.5 80 18 154/80 (104) 95 Nasal Cannula 2.00 09/06/18 18:53 93 Nasal Cannula 2.00 09/06/18 16:15 97.8 09/06/18 16:00 97.8 73 18 153/70 (97) 95 Nasal Cannula 2.00 09/06/18 15:03 93 Nasal Cannula 2.00 09/06/18 12:00 98.1 80 20 136/75 (95) 96 Nasal Cannula 2.00 09/06/18 10:52 97 Nasal Cannula 2.00 09/06/18 09:00 Nasal Cannula 1.00 09/06/18 08:00 97.5 76 20 114/84 (94) 96 Nasal Cannula 2.00 I & O 09/07/18 07:00 Intake Total 2060 ml Output Total 3850 ml Balance -1790 ml Height & Weight Height: 5'8.00" Weight: 157lbs. 2.0oz. 71.893848vb; 22.4 BMI Method:Stated General Appearance: No Apparent Distress, WD/WN, Chronically ill, Thin HEENT: Other (dry mouth with no lesions visualized) Neck: Supple Respiratory: No Accessory Muscle Use, No Respiratory Distress, Crackles, Decreased Breath Sounds Cardiovascular: Regular Rate, Rhythm, No Edema Capillary Refill: Less Than 3 Seconds Extremity: Slow Capillary Refill Neurologic/Psychiatric: Other (sedated) Skin: Cool, Pallor, Other (buttox has ulcer present with surrounding erythema and warmth) Results Lab Laboratory Tests 09/06/18 03:00 Assessment/Plan Assessment/Plan Severe sepsis with septic shock probably secondary to pneumonia - Zosyn Acute respiratory failure -s/p self extubation Severe COPD with AE -Solumedrol -SVNS Q4 Hypomag -replace MS hx and wheel chair bound -From [facility] ANNELISE HOOVER DO Sep 07, 2018 06:22
[2018-09-07 06:44] LABS: BASOPHILS % (AUTO) 0 % (0-10); EOSINOPHILS % (AUTO) 0 % (0-10); HEMATOCRIT 37 % (40-54); HEMOGLOBIN 11.9 G/DL (13.3-17.7); LYMPHOCYTES # (AUTO) 0.2 X 10^3 (1.0-4.0); LYMPHOCYTES % (AUTO) 4 % (12-44); MEAN CORPUSCULAR HEMOGLOBIN 28 PG (25-34); MEAN CORPUSCULAR HGB CONC 32 G/DL (32-36); MEAN CORPUSCULAR VOLUME 88 FL (80-99); MEAN PLATELET VOLUME 10.8 FL (7.4-10.4); MONOCYTES # (AUTO) 0.3 X 10^3 (0.0-1.0); MONOCYTES % (AUTO) 4 % (0-12); NEUTROPHILS # (AUTO) 5.4 X 10^3 (1.8-7.8); NEUTROPHILS % (AUTO) 92 % (42-75); PLATELET COUNT 122 10^3/uL (130-400); RED CELL DISTRIBUTION WIDTH 15.4 % (10.0-14.5); WHITE BLOOD COUNT 5.9 10^3/uL (4.3-11.0)
[2018-09-07 07:01] LABS: BUN/CREATININE RATIO 23; CALCIUM 8.3 MG/DL (8.5-10.1); CARBON DIOXIDE 32 MMOL/L (21-32); CHLORIDE 102 MMOL/L (98-107); CREATININE SERUM 0.87 MG/DL (0.60-1.30); GFR ESTIMATED > 60; GLUCOSE 166 MG/DL (70-105); MAGNESIUM 1.7 MG/DL (1.8-2.4); PHOSPHORUS 1.9 MG/DL (2.3-4.7); SODIUM 142 MMOL/L (135-145); TRIGLYCERIDES 98 MG/DL (<150)
[2018-09-07 08:00] VITALS: BP 140/77
--- NOTE | 2018-09-07 08:06 | Diagnostic Imaging Report ---
Indication: Shortness of breath COMPARISON: 09/06/2018 FINDINGS: Single view chest demonstrates cardiac enlargement with stable central vascular congestion, small effusions and dependent atelectasis. There is no pneumothorax. Stable right IJ catheter is present. Impression: Unchanged aeration compared to the 09/06/18 exam. Dictated by: Dictated on workstation # [id number]
[2018-09-07] MEDS: APIXABAN 5 MG (ELIQUIS) TABLET PO SCH ×2 (08:36→21:31)
[2018-09-07] MEDS: PREGABALIN 75 MG (LYRICA) CAP PO SCH ×3 (08:37→21:31)
[2018-09-07] MEDS ORDERED: KCL 20 MEQ TAB (K-DUR) PO ONE (10:30)
--- NOTE | 2018-09-07 11:06 | Progress Note-Hospitalist ---
Subjective HPI/CC On Admission Date Seen by Provider: Sep 07, 2018 Time Seen by Provider: 10:00 CC: Septic shock with respiratory failure HPI: This is a 68yoWM usp patient of Dr. Hernandez who presented to the ER with altered mental status and low BP found to be in septic shock from right lower lobe pneumonia, ABG revealed CO2 retention of 77 requiring intubation prior to transport to the ICU under my service and consulted Dr. Whitley. He was placed on aggressive IV fluid for septic shock protocol, placed on Levophed pressor therapy and Pt has improved immensely since arrival. At this current time, Pt is sedated, vitals are now stable and will be maintained on ventilator per Dr. Whitley's expertise. Subjective/Events-last exam Potassium low at 3.0 so will be given 20 memory every by mouth 1 now Declines to go down to inpatient rehabilitation is highly recommended and all he wants to do is go back to [facility] in [place] to assisted living and smokes cigarettes Will monitor closely in the meantime Completing IV antibiotics and tolerating everything well Colostomy is working well Denies any pain Review of Systems General: Fatigue Objective Exam Vital Signs Vital Signs Date Time Temp Pulse Resp B/P (MAP) Pulse Ox O2 Delivery O2 Flow Rate FiO2 09/07/18 09:35 Nasal Cannula 1.00 09/07/18 08:00 98.5 83 18 140/77 (98) 96 09/04/18 14:44 21 Capillary Refill : Less Than 3 Seconds General Appearance: No Apparent Distress, WD/WN, Chronically ill, Thin HEENT: Other (dry mouth with no lesions visualized) Neck: Supple Respiratory: No Accessory Muscle Use, No Respiratory Distress, Crackles, Decreased Breath Sounds Cardiovascular: Regular Rate, Rhythm, No Edema Gastrointestinal: Non Tender (R sided colostomy placed with SQ device vs hernia on L abdomen), Soft Rectal: Deferred Back: Normal Inspection Extremity: Slow Capillary Refill Neurologic/Psychiatric: Other (sedated) Skin: Cool, Pallor, Other (buttox has ulcer present with surrounding erythema and warmth) Results/Procedures Lab Laboratory Tests 09/07/18 06:00 Patient resulted labs reviewed. Assessment/Plan Assessment and Plan Assess & Plan/Chief Complaint Assessment: VDRF s/p extubation MS Pneumonia Colostomy Plan: Dr Whitley consultation is appreciated IRF decline since he wants to go back to assisted living [facility] and smoke Pneumonia treatment Diagnosis/Problems Diagnosis/Problems (1) Septic shock Status: Resolved Resolution Date/Time: 09/05/18 @ 12:18 (2) Respiratory failure Status: Resolved Qualifiers: Chronicity: acute Respiratory failure complication: hypercapnia Qualified Codes: J96.02 - Acute respiratory failure with hypercapnia Resolution Date/Time: 09/05/18 @ 12:18 (3) HCAP (healthcare-associated pneumonia) Status: Acute (4) Hypercarbia Status: Acute (5) RESPIRATORY FAILURE, UNSP, UNSP W HYPOXIA OR HYPERCAPNIA Status: Acute (6) Hypotension Status: Chronic Qualifiers: Hypotension type: unspecified hypotension type Qualified Codes: I95.9 - Hypotension, unspecified (7) Wheelchair dependence Status: Chronic (8) Multiple sclerosis Status: Chronic (9) Chronic pain Status: Chronic Qualifiers: Chronic pain type: chronic pain syndrome Qualified Codes: G89.4 - Chronic pain syndrome (10) Atrial fibrillation Status: Chronic Qualifiers: Atrial fibrillation type: paroxysmal Qualified Codes: I48.0 - Paroxysmal atrial fibrillation (11) FH: CHF (congestive heart failure) (12) Smoker Status: Chronic (13) COPD (chronic obstructive pulmonary disease) Status: Chronic Qualifiers: COPD type: unspecified COPD Qualified Codes: J44.9 - Chronic obstructive pulmonary disease, unspecified (14) Smoker Status: Chronic Clinical Quality Measures DVT/VTE Risk/Contraindication: Risk Factor Score Per Nursin RFS Level Per Nursing on Admit: 4+=Very High CORINE LU DO Sep 07, 2018 11:05
[2018-09-07 16:00] VITALS: BP 141/85
[2018-09-08 00:10] VITALS: BP 145/67
[2018-09-08] MEDS: RT-ALBUTEROL/IPRATROPIUM 3 ML (DUONEB) VIAL INH SCH ×2 (02:04→07:23)
[2018-09-08] MEDS: methylPREDNISolone 40 MG/ML (Solu-MEDROL) VIAL IV SCH ×2 (05:40→11:49)
[2018-09-08] MEDS: PIPERACILLIN/TAZOBACTAM (BULK) 4.5 GM in NS (IVPB) 100 ML IV SCH (05:40)
[2018-09-08] MEDS: morphine ER 30 MG (MS CONTIN) TAB PO SCH (05:41)
[2018-09-08 05:49] LABS: BASOPHILS % (AUTO) 0 % (0-10); EOSINOPHILS % (AUTO) 0 % (0-10); HEMATOCRIT 39 % (40-54); HEMOGLOBIN 12.5 G/DL (13.3-17.7); LYMPHOCYTES # (AUTO) 0.3 X 10^3 (1.0-4.0); LYMPHOCYTES % (AUTO) 4 % (12-44); MEAN CORPUSCULAR HEMOGLOBIN 28 PG (25-34); MEAN CORPUSCULAR HGB CONC 32 G/DL (32-36); MEAN CORPUSCULAR VOLUME 88 FL (80-99); MEAN PLATELET VOLUME 11.2 FL (7.4-10.4); MONOCYTES # (AUTO) 0.5 X 10^3 (0.0-1.0); MONOCYTES % (AUTO) 7 % (0-12); NEUTROPHILS # (AUTO) 6.4 X 10^3 (1.8-7.8); NEUTROPHILS % (AUTO) 89 % (42-75); PLATELET COUNT 132 10^3/uL (130-400); RED CELL DISTRIBUTION WIDTH 15.1 % (10.0-14.5); WHITE BLOOD COUNT 7.3 10^3/uL (4.3-11.0)
--- NOTE | 2018-09-08 05:55 | Diagnostic Imaging Report ---
Indication: Shortness of breath Portable chest 3:10 AM Right IJ central line tip projects over the SVC. There are emphysematous changes in the lungs. There is some hazy opacification in both lung bases that could be infiltrate or atelectasis. Impression: COPD. Increasing density at the lung bases that could be developing infiltrate and/or atelectasis. Dictated by: Dictated on workstation # [id number]
[2018-09-08 06:04] LABS: BUN/CREATININE RATIO 21; CALCIUM 8.3 MG/DL (8.5-10.1); CARBON DIOXIDE 30 MMOL/L (21-32); CHLORIDE 101 MMOL/L (98-107); GFR ESTIMATED > 60; GLUCOSE 177 MG/DL (70-105); MAGNESIUM 1.4 MG/DL (1.8-2.4); POTASSIUM 3.4 MMOL/L (3.6-5.0); SODIUM 142 MMOL/L (135-145)
--- NOTE | 2018-09-08 07:27 | NUR ---
patient was sitting in the bed on 2.5 L NC and satting 94%; no signs of distress noted at this time; patient was given his duoneb svn breathing tx and tolerated it very well
[2018-09-08 08:00] VITALS: BP 134/63
[2018-09-08] MEDS: APIXABAN 5 MG (ELIQUIS) TABLET PO SCH (09:03)
[2018-09-08] MEDS: PREGABALIN 75 MG (LYRICA) CAP PO SCH ×2 (09:04→12:13)
--- NOTE | 2018-09-08 09:14 | NUR ---
CM/SS called [facility] to inform of discharge this day. Discussed transportation of the patient back to their facility and they feel that they can transport him this day. They are to call back with a cotton picking machine operator time for this day.
[2018-09-08] MEDS ORDERED: CEFD300C3 PO (09:33)
[2018-09-08] MEDS ORDERED: L.AC1CAP6 PO (09:33)
--- NOTE | 2018-09-08 09:50 | D/C HH Face to Face Order ---
D/C Face to Face Orders Instructions for Patient Via [facility], Patient Instructions/FollowUp: Please continue to take your medications as written. Please follow up with your PCP in 1 week. Physician to follow Patient: Dr Hernandez Discharge Diet for Home: No Restrictions Patient Data-Allergies,Ht & Wt Patient Allergies: Coded Allergies: No Known Drug Allergies (Unverified , 05/27/18) Height (Feet): 5 Height (Inches): 8.00 Weight (Pounds): 156 Weight (Ounces): 2.0 Home Health Need/Face to Face Date of Face to Face: Sep 08, 2018 Clinical Findings: Generalized weakness and fatigue I have seen Pt [id number]: Yes Discharged To: Home Diagnosis/Conditions: Multiple Sclerosis Patient is Homebound due to: Radha fall risk due to instabilty, Muscle weakness Homebound Status Due to the above stated illness, injury or surgical procedure (medical condition or diagnosis) and associated clinical findings, the patient is homebound because of his/her inability to leave home except with aid of a supportive device and/or person AND leaving the home requires a considerable and taxing effort or is medically contraindicated. Pt req the following assistanc: Aid of another person Home Health Nursing Orders Home Health Services Order: Tube Teller-Evaluate & Treat, Physical Therapy-Evaluate & Treat Home Health Infusion Therapy Line Start Date: Sep 03, 2018 Therapy Orders Therapy Orders: OT (must have SN or PT order), Physical Therapy Therapy Specific Orders: Eval assistive deivces, Teach enviro modifications/safety, Increase strength/endurance Certify Stmt I certify that this patient is under my care and that I, a nurse practitioner or a physician; a assistant auditor working with me, had a face to face encounter that - meets the physician face to face encounter requirements with this patient as dated. ROZ WILKINS MD Sep 08, 2018 09:44
--- NOTE | 2018-09-08 14:31 | Discharge Summary-Hospitalist ---
Diagnosis/Chief Complaint Date of Admission Sep 03, 2018 at 10:56 Date of Discharge Sep 08, 2018 at 12:55 Discharge Date: Sep 08, 2018 Admission Diagnosis Assessment: VDRF Septic shock RLL Pneumonia MS Chronic debility requiring NHP permanently Bandemia ARF Plan: IVF for septic shock with pressor therapy Appreciate Dr Whitley vent management and curtain stretcher expertise Abx Monitor closely Discharge Diagnosis (1) Septic shock Status: Resolved (2) Respiratory failure Status: Resolved (3) HCAP (healthcare-associated pneumonia) Status: Acute (4) Hypercarbia Status: Acute (5) RESPIRATORY FAILURE, UNSP, UNSP W HYPOXIA OR HYPERCAPNIA Status: Acute (6) Hypotension Status: Chronic (7) Wheelchair dependence Status: Chronic (8) Multiple sclerosis Status: Chronic (9) Chronic pain Status: Chronic (10) Atrial fibrillation Status: Chronic (11) FH: CHF (congestive heart failure) (12) Smoker Status: Chronic (13) COPD (chronic obstructive pulmonary disease) Status: Chronic (14) Smoker Status: Chronic Discharge Summary Procedures/Consulations Dr Sherie Bryan Discharge Physical Exam Allergies: Coded Allergies: No Known Drug Allergies (Unverified , 09/08/18) Vitals & I&Os Vital Signs Date Time Temp Pulse Resp B/P (MAP) Pulse Ox O2 Delivery O2 Flow Rate FiO2 09/08/18 12:49 09/08/18 09:00 94 Nasal Cannula 1.00 09/08/18 08:00 97.0 71 18 09/04/18 14:44 21 General Appearance: Chronically ill Respiratory: Lungs Clear, No Accessory Muscle Use, No Respiratory Distress Cardiovascular: Regular Rate, Rhythm, No Murmur Neurologic/Psychiatric: Alert, Oriented x3 Hospital Course Pt was admitted for septic shock and ventilator dependent respiratory failure due to pneumonia. He responded well to antibiotics and was quickly titrated off vasopressors and the ventilator. He was assessed by therapy for IRU and deemed and appropriate candidate but declined. He was then discharged to [facility] in stable condition with home health for PT/OT and to complete oral antbiotic course. Labs (last 24 hrs) Microbiology 09/03/18 Blood Culture - Final, Complete Staphylococcus hominis 09/04/18 MRSA Screen - Final, Complete MRSA not isolated Patient resulted labs reviewed. Discussion & Recommendations Discharge Planning: >30 minutes discharge planning Discharge Home Medications: Active Scripts Active Probiotic (L.acidoph & Paracasei,B.lactis) 1 Each Capsule 1 Each PO TIDWM Cefdinir 300 Mg Capsule 300 Mg PO BID Reported Magnesium (Magnesium Oxide) 400 Mg Tablet 400 Mg PO DAILY Guaifenesin 400 Mg Tablet 400 Mg PO QID Nystatin 15 Gm Powder TOP TID APPLY TO THIGHS AND GROIN UNTIL CLEAR Fluticasone Propionate 16 Gm Max.susp 2 Sprays NS DAILY Zinc (Zinc Gluconate) 30 Mg Tablet 30 Mg PO DAILY Multivitamins (Multivitamin) 1 Each Tablet 1 Tab PO DAILY Megestrol Acetate 400 Mg/10 Ml Oral.susp 5 Ml PO DAILY [Alcohol/Vinegar] 4 Drops EACH EAR PRN PRN ALCOHOL/WHITE VINEGAR EQUAL PARTS Nystatin-Triamcinolone Ointm (Nystatin/Triamcinolone) 15 Gm Oint TP BID PRN Ibu (Ibuprofen) 400 Mg Tablet 400 Mg PO TID PRN Tylenol Extra Strength (Acetaminophen) 500 Mg Tablet 500 Mg PO Q6H PRN Tea Tree (Tea Tree Oil) 1 Ml Oil 4 Drop EACH EAR BID PRN Zofran (Ondansetron HCl) 4 Mg Tab 4 Mg PO Q4H PRN Iprat-Albut 0.5-3(2.5) mg/3 ml (Ipratropium/Albuterol Sulfate) 3 Ml Ampul.neb 3 Ml NEB Q6H PRN Lyrica (Pregabalin) 225 Mg Capsule 225 Mg PO TID Alprazolam 0.5 Mg Tablet 0.5 Mg PO HS Morphine Sulfate ER (Morphine Sulfate) 30 Mg Tablet.er 30 Mg PO 0600,1400,2200 Flomax (Tamsulosin HCl) 0.4 Mg Cap 0.8 Mg PO HS TAKES 2 (0.4MG) CAPSULES Eliquis (Apixaban) 5 Mg Tablet 5 Mg PO BID Quetiapine Fumarate 50 Mg Tablet 50 Mg PO HS Citalopram HBr (Citalopram Hydrobromide) 20 Mg Tablet 20 Mg PO DAILY Famotidine 20 Mg Tablet 20 Mg PO BID Amiodarone HCl 200 Mg Tablet 200 Mg PO Q12H Tramadol HCl 50 Mg Tablet 100 Mg PO Q6H PRN Instructions to patient/family Please see electronic discharge instructions given to patient. Clinical Quality Measures DVT/VTE Risk/Contraindication: Risk Factor Score Per Nursin RFS Level Per Nursing on Admit: 4+=Very High Other: see interventions Problem Qualifiers (1) Respiratory failure: Chronicity: acute Respiratory failure complication: hypercapnia Qualified Codes: J96.02 - Acute respiratory failure with hypercapnia (2) Hypotension: Hypotension type: unspecified hypotension type Qualified Codes: I95.9 - Hypotension, unspecified (3) Chronic pain: Chronic pain type: chronic pain syndrome Qualified Codes: G89.4 - Chronic pain syndrome (4) Atrial fibrillation: Atrial fibrillation type: paroxysmal Qualified Codes: I48.0 - Paroxysmal atrial fibrillation (5) COPD (chronic obstructive pulmonary disease): COPD type: unspecified COPD Qualified Codes: J44.9 - Chronic obstructive pulmonary disease, unspecified ROZ WILKINS MD Sep 08, 2018 14:30
== END 2018-09-08 12:55 | disposition home health service (06) | DRG 871 ==
LOC: EDUNIT# 08:38 → ER FS 08:39 → ICU 10:56 → 4TH 09-05 17:00
PROVIDERS: ADMIT Internal Medicine; ATTEND Family Medicine
PROC: 0BH18EZ Insertion of Endotracheal Airway into Trachea, Via Natural or Artificial Opening Endoscopic (ICD-10-PCS; principal; 2018-09-03)
PROC: 5A1945Z Respiratory Ventilation, 24-96 Consecutive Hours (ICD-10-PCS; 2018-09-03)
DX: A41.1 Sepsis due to other specified staphylococcus (principal); R65.21 Severe sepsis with septic shock; J18.1 Lobar pneumonia, unspecified organism; Y95 Nosocomial condition; J96.02 Acute respiratory failure with hypercapnia; J44.1 Chronic obstructive pulmonary disease with (acute) exacerbation; G35 Multiple sclerosis; G89.4 Chronic pain syndrome; I48.0 Paroxysmal atrial fibrillation; L89.159 Pressure ulcer of sacral region, unspecified stage; E83.42 Hypomagnesemia; F17.210 Nicotine dependence, cigarettes, uncomplicated; Z99.3 Dependence on wheelchair; Z93.3 Colostomy status
CPT/HCPCS: 31500; 36415; 36556; 36600; 51702; 70450; 71045; 80048; 80053; 81000; 82040; 82330; 82805; 82962; 83605; 83690; 83735; 83880; 84100; 84132; 84478; 84484; 85007; 85025; 85027; 85379; 85610; 85730; 87040; 87070; 87077; 87081; 87186; 87205; 93005; 94002; 94003; 94640; 94760; 94799; 96374; 96375; 99291

== ENCOUNTER 2018-12-04 15:34 | Emergency (ER) | payer MEDICARE, MEDICAID ==
[~2018-12-04 15:34] MED LIST changes: +L.AC1CAP6 PO
--- NOTE | 2018-12-04 16:25 | Diagnostic Imaging Report ---
INDICATION: Shortness of breath. Comparison made with prior examination from 09/08/2018. FINDINGS: Heart size is normal. There is COPD. There is some background interstitial scarring particularly in the right upper lobe. No pneumothorax. Mediastinum is unremarkable. IMPRESSION: COPD with some diffuse interstitial scarring. Dictated by: Dictated on workstation # [id number]
[2018-12-04 16:39] LABS: BUN/CREATININE RATIO 11; CALCIUM 9.4 MG/DL (8.5-10.1); CARBON DIOXIDE 26 MMOL/L (21-32); CHLORIDE 103 MMOL/L (98-107); CREATININE SERUM 0.94 MG/DL (0.60-1.30); GFR ESTIMATED > 60; GLUCOSE 85 MG/DL (70-105); POTASSIUM 4.8 MMOL/L (3.6-5.0); SODIUM 142 MMOL/L (135-145)
[2018-12-04 16:40] LABS: ALANINE AMINOTRANSFERASE 12 U/L (0-55); ALBUMIN 3.7 GM/DL (3.2-4.5); ALKALINE PHOSPHATASE 81 U/L (40-136); BILIRUBIN,TOTAL 0.3 MG/DL (0.1-1.0); HEMATOCRIT 45 % (40-54); HEMOGLOBIN 14.1 G/DL (13.3-17.7); MEAN CORPUSCULAR HEMOGLOBIN 29 PG (25-34); MEAN CORPUSCULAR VOLUME 92 FL (80-99); TOTAL PROTEIN 6.8 GM/DL (6.4-8.2); WHITE BLOOD COUNT 8.4 10^3/uL (4.3-11.0)
[2018-12-04 16:41] LABS: BASOPHILS % (AUTO) 0 % (0-10); EOSINOPHILS # (AUTO) 0.2 10^3/uL (0.0-0.3); EOSINOPHILS % (AUTO) 2 % (0-10); LYMPHOCYTES # (AUTO) 0.6 X 10^3 (1.0-4.0); LYMPHOCYTES % (AUTO) 7 % (12-44); MEAN CORPUSCULAR HGB CONC 32 G/DL (32-36); MEAN PLATELET VOLUME 11.8 FL (7.4-10.4); MONOCYTES # (AUTO) 0.6 X 10^3 (0.0-1.0); MONOCYTES % (AUTO) 7 % (0-12); NEUTROPHILS % (AUTO) 84 % (42-75); PLATELET COUNT 170 10^3/uL (130-400); RED CELL DISTRIBUTION WIDTH 15.8 % (10.0-14.5)
[2018-12-04] MEDS ORDERED: RT-ALBUTEROL/IPRATROPIUM 3 ML (DUONEB) VIAL INH ONE (16:45)
--- NOTE | 2018-12-04 16:45 | ED Respiratory ---
General Chief Complaint: Respiratory Problems Stated Complaint: SOB Nursing Triage Note: Brought in by EMS from [facility] for shortness of breath and altered mental status. [facility] reports that patient started feeling sick yesterday and requested something for allergies. States he is more confused today and is having cough and lungs sound congested. Has hx of COPD Source: patient Exam Limitations: no limitations History of Present Illness Date Seen by Provider: Dec 04, 2018 Time Seen by Provider: 16:40 Initial Comments The patient is a 68-year-old white male with long-standing severe COPD. He was sent here from [facility] where he resides permanently when they observed that he seemed to be more confused today. They noted that he has been coughing and has sounded congested. He was admitted to [facility] in late August with severe sepsis and apparent right lower lobe pneumonia. At that time he passed on a recommended inpatient rehabilitation stay in order to get back to the assisted and smoke again. He also had a sacral decubitus at that time. Timing/Duration: yesterday Prior Episodes/Possible Cause: frequent episodes Associated Symptoms: cough, shortness of breath Allergies and Home Medications Allergies Coded Allergies: No Known Drug Allergies (Unverified , 09/08/18) Home Medications Acetaminophen 500 Mg Tablet, 500 MG PO Q6H PRN for PAIN-MILD OR TEMPATURE, (Reported) Alprazolam 0.5 Mg Tablet, 0.5 MG PO HS, (Reported) Amiodarone HCl 200 Mg Tablet, 200 MG PO Q12H, (Reported) Apixaban 5 Mg Tablet, 5 MG PO BID, (Reported) Cefdinir 300 Mg Capsule, 300 MG PO BID Prescribed by: ROZ WILKINS on 09/08/18 0933 Citalopram Hydrobromide 20 Mg Tablet, 20 MG PO DAILY, (Reported) Famotidine 20 Mg Tablet, 20 MG PO BID, (Reported) Fluticasone Propionate 16 Gm [place].susp, 2 SPRAYS NS DAILY, (Reported) Guaifenesin 400 Mg Tablet, 400 MG PO QID, (Reported) Ibuprofen 400 Mg Tablet, 400 MG PO TID PRN for PAIN-MILD, (Reported) Ipratropium/Albuterol Sulfate 3 Ml Ampul.neb, 3 ML NEB Q6H PRN for SHORTNESS OF BREATH, (Reported) L.acidoph & Paracasei,B.lactis 1 Each Capsule, 1 EACH PO TIDWM Prescribed by: ROZ WILKINS on 09/08/18 0933 Magnesium Oxide 400 Mg Tablet, 400 MG PO DAILY, (Reported) Megestrol Acetate 400 Mg/10 Ml Oral.susp, 5 ML PO DAILY, (Reported) Morphine Sulfate 30 Mg Tablet.er, 30 MG PO 0600,1400,2200, (Reported) Multivitamin 1 Each Tablet, 1 TAB PO DAILY, (Reported) Nystatin 15 Gm Powder, TOP TID, (Reported) APPLY TO THIGHS AND GROIN UNTIL CLEAR Nystatin/Triamcinolone 15 Gm Oint, TP BID PRN for STOMA, (Reported) Ondansetron HCl 4 Mg Tab, 4 MG PO Q4H PRN for NAUSEA/VOMITING-1ST LINE, (Reported) Pregabalin 225 Mg Capsule, 225 MG PO TID, (Reported) Quetiapine Fumarate 50 Mg Tablet, 50 MG PO HS, (Reported) Tamsulosin HCl 0.4 Mg Cap, 0.8 MG PO HS, (Reported) TAKES 2 (0.4MG) CAPSULES Tea Tree Oil 1 Ml Oil, 4 DROP EACH EAR BID PRN for EAR, (Reported) Tramadol HCl 50 Mg Tablet, 100 MG PO Q6H PRN for PAIN-MODERATE, (Reported) Zinc Gluconate 30 Mg Tablet, 30 MG PO DAILY, (Reported) [Alcohol/Vinegar] , 4 DROPS EACH EAR PRN PRN for EAR PAIN, (Reported) ALCOHOL/WHITE VINEGAR EQUAL PARTS Patient Home Medication List Home Medication List Reviewed: Yes Review of Systems Review of Systems Constitutional: see HPI EENTM: no symptoms reported Respiratory: see HPI, cough, dyspnea on exertion, short of breath, wheezing Cardiovascular: no symptoms reported Gastrointestinal: no symptoms reported Genitourinary: no symptoms reported Musculoskeletal: no symptoms reported Skin: no symptoms reported Past Xltmubn-Npyspa-Awlzbx Hx Patient Social History Alcohol Use: Occasionally Uses Number of Drinks Today: AA Alcohol Beverage of Choice: Beer Recreational Drug Use: No Type Used: Cigarettes 2nd Hand Smoke Exposure: No Recent Foreign Travel: No Contact w/Someone Who Travel: No Recent Infectious Disease Expo: No Recent Hopitalizations: No Physical Abuse: No Sexual Abuse: No Mistreated: No Fear: No Immunizations Up To Date Date of Pneumonia Vaccine: Dec 09, 2017 Date of Influenza Vaccine: Dec 09, 2017 Seasonal Allergies Seasonal Allergies: No Past Medical History Surgeries: Yes (Colostomy, ) Respiratory: Yes COPD, Emphysema Cardiac: Yes (CHF; ischemic heart disease) Irregular Heartbeat Neurological: Yes Multiple Sclerosis Genitourinary: Yes (renal insufficiency) Gastrointestinal: Yes (Colostomy; ventral hernia) Musculoskeletal: Yes Arthritis Endocrine: No HEENT: No Cancer: No Psychosocial: Yes Depression Integumentary: No Blood Disorders: No Family Medical History FH: CHF (congestive heart failure) 19 FATHER, , Age:70, Onset:60 years & older Physical Exam Vital Signs - First Documented 12/04/18 15:45 Temp 37.4 Pulse 112 Resp 24 B/P (MAP) 128/65 (86) Pulse Ox 95 O2 Flow Rate 2.00 Capillary Refill : Less Than 3 Seconds Height: 5'8.00" Weight: 156lbs. 2.0oz. [id number]; 22.4 BMI Method:Stated General Appearance: mild distress, other (he is alert and answers questions without unusual huffing and puffing) HEENT: normal ENT inspection Neck: full range of motion Respiratory: decreased breath sounds (distant), other (no retractions are noted) Cardiovascular: regular rate, rhythm Gastrointestinal: normal bowel sounds Extremities: normal range of motion, pedal edema Neurologic/Psychiatric: compound finisher II-XII nml as tested, no motor/sensory deficits, normal mood/affect Skin: normal color, warm/dry, damp Lymphatic: no adenopathy Procedures/Interventions Date of ETT Placement: Sep 03, 2018 Time of ETT Placement: 1032 Progress/Results/Core Measures Suspected Sepsis Recent Fever Within 48 Hours: No Infection Criteria Present: Suspected New Infection New/Unexplained Altered Menta: Yes Sepsis Screen: Possible Severe Sepsis Risk SIRS Temperature: Pulse: 112 Respiratory Rate: 24 Laboratory Tests 12/04/18 15:45: White Blood Count 8.4 Blood Pressure 128 /65 Mean: 86 Laboratory Tests 12/04/18 15:45: Creatinine 0.94, Platelet Count 170, Total Bilirubin 0.3 Results/Orders Lab Results Laboratory Tests Test 12/04/18 15:45 12/04/18 16:30 Range/Units White Blood Count 8.4 4.3-11.0 10^3/uL Red Blood Count 4.89 4.35-5.85 10^6/uL Hemoglobin 14.1 13.3-17.7 G/DL Hematocrit 45 40-54 % Mean Corpuscular Volume 92 80-99 FL Mean Corpuscular Hemoglobin 29 25-34 PG Mean Corpuscular Hemoglobin Concent 32 32-36 G/DL Red Cell Distribution Width 15.8 H 10.0-14.5 % Platelet Count 170 130-400 10^3/uL Mean Platelet Volume 11.8 H 7.4-10.4 FL Neutrophils (%) (Auto) 84 H 42-75 % Lymphocytes (%) (Auto) 7 L 12-44 % Monocytes (%) (Auto) 7 0-12 % Eosinophils (%) (Auto) 2 0-10 % Basophils (%) (Auto) 0 0-10 % Neutrophils # (Auto) 7.0 1.8-7.8 X 10^3 Lymphocytes # (Auto) 0.6 L 1.0-4.0 X 10^3 Monocytes # (Auto) 0.6 0.0-1.0 X 10^3 Eosinophils # (Auto) 0.2 0.0-0.3 10^3/uL Basophils # (Auto) 0.0 0.0-0.1 10^3/uL Neutrophils % (Manual) 62 % Lymphocytes % (Manual) 7 % Monocytes % (Manual) 6 % Eosinophils % (Manual) 2 % Band Neutrophils 23 % Toxic Granulation 1+ Blood Morphology Comment NORMAL Sodium Level 142 135-145 MMOL/L Potassium Level 4.8 3.6-5.0 MMOL/L Chloride Level 103 98-107 MMOL/L Carbon Dioxide Level 26 21-32 MMOL/L Anion Gap 13 5-14 MMOL/L Blood Urea Nitrogen 10 7-18 MG/DL Creatinine 0.94 0.60-1.30 MG/DL Estimat Glomerular Filtration Rate > 60 BUN/Creatinine Ratio 11 Glucose Level 85 70-105 MG/DL Calcium Level 9.4 8.5-10.1 MG/DL Corrected Calcium 9.6 8.5-10.1 MG/DL Total Bilirubin 0.3 0.1-1.0 MG/DL Aspartate Amino Transf (AST/SGOT) 25 5-34 U/L Alanine Aminotransferase (ALT/SGPT) 12 0-55 U/L Alkaline Phosphatase 81 40-136 U/L Total Protein 6.8 6.4-8.2 GM/DL Albumin 3.7 3.2-4.5 GM/DL Urine Color YELLOW Urine Clarity CLEAR Urine pH 5.5 5-9 Urine Specific [place] 1.015 L 1.016-1.022 Urine Protein NEGATIVE NEGATIVE Urine Glucose (UA) NEGATIVE NEGATIVE Urine Ketones NEGATIVE NEGATIVE Urine Nitrite NEGATIVE NEGATIVE Urine Bilirubin NEGATIVE NEGATIVE Urine Urobilinogen 0.2 NORMAL MG/DL Urine Leukocyte Esterase NEGATIVE NEGATIVE Urine RBC (Auto) NEGATIVE NEGATIVE Urine RBC NONE /HPF Urine WBC NONE /HPF Urine Squamous Epithelial Cells NONE /HPF Urine Crystals PRESENT H /LPF Urine Amorphous Sediment FEW LUCA URATES H /LPF Urine Bacteria NEGATIVE /HPF Urine Casts NONE /LPF Urine Mucus NEGATIVE /LPF Urine Culture Indicated NO My Orders Orders - FIORELLA ROQUE MD Cbc With Automated Diff (12/04/18 15:54) Comprehensive Metabolic Panel (12/04/18 15:54) Ua Culture If Indicated (12/04/18 15:54) Chest 1 View Ap/Pa Only (12/04/18 15:55) Albuterol/Ipra Inhalation Soln (Duoneb I (12/04/18 16:45) Svn Small Volume Nebulizer (12/04/18 16:39) Manual Differential (12/04/18 15:45) Medications Given in ED Current Medications Medications Dose Ordered Sig/Ignacio Route Start Time Stop Time Status Last Admin Dose Admin Albuterol/ Ipratropium 3 ml ONCE ONCE INH 12/04/18 16:45 12/04/18 16:46 DC 12/04/18 16:48 3 ML Vital Signs/I&O 12/04/18 15:45 Temp 37.4 Pulse 112 Resp 24 B/P (MAP) 128/65 (86) Pulse Ox 95 O2 Flow Rate 2.00 Capillary Refill : Less Than 3 Seconds Blood Pressure Mean: 86 Departure Communication (Admissions) The patient has not appeared to be confused during his stay here. Laboratory is unremarkable. Chest x-ray shows pulmonary fibrosis similar to his previous x- rays with no hint of pneumonia Impression Primary Impression: COPD Disposition: 01 HOME, SELF-CARE Condition: Stable/Unchanged Departure-Patient Inst. Decision time for Depature: 17:59 Referrals: ROCHELLE VASQUEZ MD (PCP/Family) Primary Care Physician Add. Discharge Instructions: All discharge instructions reviewed with patient and/or family. Voiced understanding. Continue present medications. You may need to increase your nebulizer treatments to every 4-6 hours. FIORELLA ROQUE MD Dec 04, 2018 16:45
[2018-12-04 17:26] LABS: CLARITY,URINE CLEAR; COLOR,URINE YELLOW; PH,URINE 5.5 (5-9)
[2018-12-04 17:27] LABS: AMORPHOUS SEDIMENT,UR FEW AMOR URATES /LPF; BACTERIA,URINE NEGATIVE /HPF; BILIRUBIN,URINE NEGATIVE (NEGATIVE); GLUCOSE, URINE (UA) NEGATIVE (NEGATIVE); KETONES,URINE NEGATIVE (NEGATIVE); LEUKOCYTE ESTERASE ,URINE NEGATIVE (NEGATIVE); NITRITE,URINE NEGATIVE (NEGATIVE); PROTEIN,URINE NEGATIVE (NEGATIVE); UROBILINOGEN,URINE 0.2 MG/DL (NORMAL)
[2018-12-04 17:29] LABS: BAND NEUTROPHILS 23 %; EOSINOPHILS % (MANUAL) 2 %; LYMPHOCYTES % (MANUAL) 7 %; MONOCYTES % (MANUAL) 6 %; NEUTROPHILS % (MANUAL) 62 %
[2018-12-04 17:30] LABS: RBC MORPH NORMAL; TOXIC GRANULATION/VACUOLAZATIO 1+
[2018-12-04 18:55] VITALS: BP 106/61
== END 2018-12-04 18:55 | disposition home or self-care (01) ==
LOC: ER FS 15:34 → EDUNIT# 15:34 → ER FS 18:55
DX: J43.9 Emphysema, unspecified (principal); I50.9 Heart failure, unspecified; G35 Multiple sclerosis; F32.9 Major depressive disorder, single episode, unspecified; Z79.01 Long term (current) use of anticoagulants; Z79.51 Long term (current) use of inhaled steroids; Z82.49 Family history of ischemic heart disease and other diseases of the circulatory system
CPT/HCPCS: 36415; 71045; 80053; 81000; 85007; 85027

== ENCOUNTER 2019-05-24 02:23 | Observation (INO) | payer MEDICARE, MEDICAID ==
[~2019-05-24] VITALS: Ht 172.7 cm; Wt 58.0 kg
[~2019-05-24 02:23] MED LIST changes: -GUAI400T71 PO; +GUAI400T86 PO; -MEGE400O21 PO; +MEGE400O5 PO; -MORP-34 PO; +MORP-69 PO; -TAMS0.4C98 PO; +TMSL.4C PO; -TRAM50TA2 PO; +TRM50T PO
[2019-05-24] MEDS ORDERED: NS IV 1000 ML 1,000 ML IV STA (02:47)
--- NOTE | 2019-05-24 02:57 | ED Cardiac General ---
History of Present Illness General Chief Complaint: Cardiac/General Problems Stated Complaint: FALL History of Present Illness Date Seen by Provider: May 24, 2019 Time Seen by Provider: 02:40 Initial Comments This patient is a 68-year-old male that presents to the emergency department with complaint of low blood pressure. Patient is awake and alert at his baseline. Reportedly the patient states that he was in his room at the residential and have fall and they assisted him checked his blood pressure was low. Patient also reportedly has been drinking alcohol tonight while in the residential. Patient has a long history of MS,COPD and has a colostomy. Patient denies history of colon cancer states he does have a colostomy. Patient states he has been in this condition for long time. Patient has no specific complaints at this time. Patient does wear oxygen 24 hours a day due to his long history of emphysema and COPD. Patient has no complaints of pain. We'll do medical evaluation treatment is needed. Patient transported to the emergency department and has a normal range blood pressure. After IV fluid bolus per EMS. Blood pre ssure on arrival was 105 systolic. Timing/Duration: 1 hour Severity: mild Prior CP/Workup: non-cardiac Allergies and Home Medications Allergies Coded Allergies: No Known Drug Allergies (Unverified , 09/08/18) Home Medications Acetaminophen 500 Mg Tablet, 500 MG PO Q6H PRN for PAIN-MILD OR TEMPATURE, (Reported) Alprazolam 0.5 Mg Tablet, 0.5 MG PO HS, (Reported) Amiodarone HCl 200 Mg Tablet, 200 MG PO Q12H, (Reported) Apixaban 5 Mg Tablet, 5 MG PO BID, (Reported) Cefdinir 300 Mg Capsule, 300 MG PO BID Prescribed by: ROZ WILKINS on 09/08/18 0933 Citalopram Hydrobromide 20 Mg Tablet, 20 MG PO DAILY, (Reported) Famotidine 20 Mg Tablet, 20 MG PO BID, (Reported) Fluticasone Propionate 16 Gm Mason.susp, 2 SPRAYS NS DAILY, (Reported) Guaifenesin 400 Mg Tablet, 400 MG PO QID, (Reported) Ibuprofen 400 Mg Tablet, 400 MG PO TID PRN for PAIN-MILD, (Reported) Ipratropium/Albuterol Sulfate 3 Ml Ampul.neb, 3 ML NEB Q6H PRN for SHORTNESS OF BREATH, (Reported) L.acidoph & Paracasei,B.lactis 1 Each Capsule, 1 EACH PO TIDWM Prescribed by: ROZ WILKINS on 09/08/18 0933 Magnesium Oxide 400 Mg Tablet, 400 MG PO DAILY, (Reported) Megestrol Acetate 400 Mg/10 Ml Oral.susp, 5 ML PO DAILY, (Reported) Morphine Sulfate 30 Mg Tablet.er, 30 MG PO 0600,1400,2200, (Reported) Multivitamin 1 Each Tablet, 1 TAB PO DAILY, (Reported) Nystatin 15 Gm Powder, TOP TID, (Reported) APPLY TO THIGHS AND GROIN UNTIL CLEAR Nystatin/Triamcinolone 15 Gm Oint, TP BID PRN for STOMA, (Reported) Ondansetron HCl 4 Mg Tab, 4 MG PO Q4H PRN for NAUSEA/VOMITING-1ST LINE, (Reported) Pregabalin 225 Mg Capsule, 225 MG PO TID, (Reported) Quetiapine Fumarate 50 Mg Tablet, 50 MG PO HS, (Reported) Tamsulosin HCl 0.4 Mg Cap, 0.8 MG PO HS, (Reported) TAKES 2 (0.4MG) CAPSULES Tea Tree Oil 1 Ml Oil, 4 DROP EACH EAR BID PRN for EAR, (Reported) Tramadol HCl 50 Mg Tablet, 100 MG PO Q6H PRN for PAIN-MODERATE, (Reported) Zinc Gluconate 30 Mg Tablet, 30 MG PO DAILY, (Reported) [Alcohol/Vinegar] , 4 DROPS EACH EAR PRN PRN for EAR PAIN, (Reported) ALCOHOL/WHITE VINEGAR EQUAL PARTS Patient Home Medication List Home Medication List Reviewed: Yes Review of Systems Review of Systems Constitutional: no symptoms reported; No see HPI, No chills, No diaphoresis, No dizziness, No fever, No malaise, No weakness, No weight gain, No weight loss, No other EENTM: No Symptoms Reported; No See HPI, No Blurred Vision, No Double Vision, No Eye Pain, No Eye Tearing, No Ear Drainage, No Ear Pain, No Mouth Pain, No Mouth Swelling, No Nose Congestion, No Nose Pain, No Throat Pain, No Throat Swelling, No Other Respiratory: No Symptoms Reported; Denies See HPI, Denies Cough, Denies Orthopnea, Denies Shortness of Air, Denies SOA With Exertion, Denies SOA at Rest, Denies Stridor, Denies Wheezing, Denies Other Cardiovascular: No Symptoms Reported; Denies See HPI, Denies Chest Pain, Denies Edema, Denies Irregular Heart Rate, Denies Lightheadedness, Denies Palpitations, Denies Syncope, Denies Other Gastrointestinal: No Symptoms Reported; Denies See HPI, Denies Abdomen Distended, Denies Abdominal Pain, Denies Blood Streaked Stools, Denies Constipated, Denies Diarrhea, Denies Difficulty Swallowing, Denies Nausea, Denies Poor Appetite, Denies Poor Fluid Intake, Denies Rectal Bleeding, Denies Vomiting, Denies Other Genitourinary: No Symptoms Reported; Denies See HPI, Denies Burning, Denies Discharge, Denies Drainage, Denies Frequency, Denies Flank Pain, Denies Hematuria, Denies Incontinence, Denies Pain, Denies Urgency, Denies Other Musculoskeletal: no symptoms reported; No see HPI, No back pain, No gout, No joint pain, No joint swelling, No muscle pain, No muscle stiffness, No muscle cramps, No muscle twitching, No muscle weakness, No neck pain, No other Skin: no symptoms reported; No see HPI, No change in color, No change in hair/nails, No dryness, No hx of skin cancer, No lesions, No lumps, No pruritus, No rash, No other Past Ljyswmj-Phngnl-Fcnhnx Hx Patient Social History Alcohol Use: Occasionally Uses Number of Drinks Today: AA Alcohol Beverage of Choice: Beer Recreational Drug Use: No Smoking Status: Current Everyday Smoker Type Used: Cigarettes 2nd Hand Smoke Exposure: No Recent Foreign Travel: No Contact w/Someone Who Travel: No Recent Hopitalizations: No Physical Abuse: No Sexual Abuse: No Immunizations Up To Date Date of Pneumonia Vaccine: Dec 09, 2017 Date of Influenza Vaccine: Dec 09, 2017 Seasonal Allergies Seasonal Allergies: No Past Medical History Surgeries: Yes (Colostomy) Respiratory: Yes COPD, Emphysema Cardiac: Yes (CHF) Irregular Heartbeat Neurological: Yes Multiple Sclerosis Genitourinary: Yes (renal insufficiency) Gastrointestinal: Yes (Colostomy; ventral hernia) Musculoskeletal: Yes Arthritis Endocrine: No HEENT: No Cancer: No Psychosocial: Yes Depression Integumentary: No Blood Disorders: No Family Medical History FH: CHF (congestive heart failure) 19 FATHER, , Age:70, Onset:60 years & older Physical Exam Vital Signs Vital Signs - First Documented 05/24/19 02:30 Temp 36.8 Pulse 72 Resp 18 B/P (MAP) 105/61 (76) Pulse Ox 99 O2 Delivery Nasal Cannula O2 Flow Rate 4.00 FiO2 99 Capillary Refill : Height, Weight, BMI Height: 5'8.00" Weight: 156lbs. 2.0oz. 70.086751me; 22.4 BMI Method:Stated General Appearance: No Apparent Distress, WD/WN HEENT: PERRL/EOMI, TMs Normal, Normal ENT Inspection, Pharynx Normal Neck: Full Range of Motion, Normal Inspection, Non Tender Respiratory: Chest Non Tender, Lungs Clear, Normal Breath Sounds, No Accessory Muscle Use, No Respiratory Distress Cardiovascular: Regular Rate, Rhythm, No Edema, No Gallop, No JVD, No Murmur, Normal Peripheral Pulses Gastrointestinal: Normal Bowel Sounds, No Organomegaly, No Pulsatile Mass, Non Tender, Soft, Other (colostomy present. Patient has significant amount of scarring. From previous surgeries.) Extremity: Normal Capillary Refill, Normal Inspection, Normal Range of Motion, Non Tender, No Calf Tenderness, No Pedal Edema Neurologic/Psychiatric: Alert, Oriented x3, No Motor/Sensory Deficits, Normal Mood/Affect, gauge and instrument inspector II-XII Norm as Tested Skin: Normal Color, Warm/Dry Procedures/Interventions Date of ETT Placement: Sep 03, 2018 Time of ETT Placement: 1032 Progress/Results/Core Measures Results/Orders Lab Results Laboratory Tests Test 05/24/19 03:00 05/24/19 03:05 05/24/19 04:20 Range/Units Blood Gas Puncture Site LEFT RADIAL RIGHT RADIAL Blood Gas Patient Temperature 36.8 36.8 Arterial Blood pH 7.30 *L 7.30 *L 7.37-7.43 Arterial Blood Partial Pressure CO2 63 H 61 H 35-45 MMHG Arterial Blood Partial Pressure O2 148 H 74 L 79-93 MMHG Arterial Blood HCO3 31 H 30 H 23-27 MMOL/L Arterial Blood Total CO2 32.9 H 31.9 H 21.0-31.0 MMOL/L Arterial Blood Oxygen Saturation 99 93 L 94-100 % Arterial Blood Base Excess 3.0 H 2.2 -2.5-2.5 MMOL/L Jefferson Test NO NO Blood Gas Ventilator Setting NO NO Blood Gas Inspired Oxygen 99% 99% White Blood Count 7.0 4.3-11.0 10^3/uL Red Blood Count 3.82 L 4.35-5.85 10^6/uL Hemoglobin 11.0 L 13.3-17.7 G/DL Hematocrit 35 L 40-54 % Mean Corpuscular Volume 91 80-99 FL Mean Corpuscular Hemoglobin 29 25-34 PG Mean Corpuscular Hemoglobin Concent 32 32-36 G/DL Red Cell Distribution Width 15.2 H 10.0-14.5 % Platelet Count 174 130-400 10^3/uL Mean Platelet Volume 11.2 H 7.4-10.4 FL Neutrophils (%) (Auto) 71 42-75 % Lymphocytes (%) (Auto) 17 12-44 % Monocytes (%) (Auto) 8 0-12 % Eosinophils (%) (Auto) 4 0-10 % Basophils (%) (Auto) 1 0-10 % Neutrophils # (Auto) 5.0 1.8-7.8 X 10^3 Lymphocytes # (Auto) 1.2 1.0-4.0 X 10^3 Monocytes # (Auto) 0.6 0.0-1.0 X 10^3 Eosinophils # (Auto) 0.3 0.0-0.3 10^3/uL Basophils # (Auto) 0.0 0.0-0.1 10^3/uL Prothrombin Time 20.1 H 12.2-14.7 SEC INR Comment 1.6 H 0.8-1.4 Activated Partial Thromboplast Time 41 H 24-35 SEC Sodium Level 139 135-145 MMOL/L Potassium Level 4.2 3.6-5.0 MMOL/L Chloride Level 102 98-107 MMOL/L Carbon Dioxide Level 26 21-32 MMOL/L Anion Gap 11 5-14 MMOL/L Blood Urea Nitrogen 11 7-18 MG/DL Creatinine 0.99 0.60-1.30 MG/DL Estimat Glomerular Filtration Rate > 60 BUN/Creatinine Ratio 11 Glucose Level 94 70-105 MG/DL Calcium Level 8.4 L 8.5-10.1 MG/DL Corrected Calcium 8.9 8.5-10.1 MG/DL Magnesium Level 1.7 1.6-2.4 MG/DL Total Bilirubin 0.5 0.1-1.0 MG/DL Aspartate Amino Transf (AST/SGOT) 15 5-34 U/L Alanine Aminotransferase (ALT/SGPT) 9 0-55 U/L Alkaline Phosphatase 92 40-136 U/L Myoglobin 59.9 10.0-92.0 NG/ML Troponin I < 0.30 <0.30 NG/ML Pro-B-Type Natriuretic Peptide 139.7 H <75.0 PG/ML Total Protein 6.0 L 6.4-8.2 GM/DL Albumin 3.4 3.2-4.5 GM/DL Serum Alcohol < 10 <10 MG/DL My Orders Orders - MAINOR DAVID MD Cbc With Automated Diff (05/24/19 02:47) Magnesium (05/24/19 02:47) Chest 1 View Ap/Pa Only (05/24/19 02:47) Ekg Tracing (05/24/19 02:47) Comprehensive Metabolic Panel (05/24/19 02:47) Myoglobin Serum (05/24/19 02:47) Protime With Inr (05/24/19 02:47) Partial Thromboplastin Time (05/24/19 02:47) O2 (05/24/19 02:47) Monitor-Rhythm Ecg Trace Only (05/24/19 02:47) Lipid Panel (05/25/19 06:00) Ed Iv/Invasive Line Start (05/24/19 02:47) Troponin I Fs (05/24/19 02:47) Probnp Fs (05/24/19 02:47) Alcohol (05/24/19 02:47) Urinalysis (05/24/19 02:47) Drug Screen Stat (Urine) (05/24/19 02:47) Arterial Blood Gas (05/24/19 02:47) Ns Iv 1000 Ml (Sodium Chloride 0.9%) (05/24/19 02:47) Ct Head Wo (05/24/19 02:58) Arterial Blood Gas (05/24/19 04:11) Vital Signs/I&O 05/24/19 05/24/19 02:30 02:30 Temp 36.8 Pulse 72 Resp 18 B/P (MAP) 105/61 (76) Pulse Ox 99 O2 Delivery Nasal Cannula Nasal Cannula O2 Flow Rate 4.00 FiO2 99 Progress Progress Note : Time: 04:13 Progress Note Patient is much improved. O2 sat on 2 L by nasal cannula is 97%. Blood pressure 141 systolic. After fluid bolus. Patient was offered admission observation to the hospital patient declines patient wishes being sent back to the nursing facility. Has a long history of COPD. Patient's initial pH was low of 7.30. 0500 patient's repeat ABG pH is still 7.30 but PCO2 is improved. Discussed with the patient states understanding will have transfer to [facility]. I did discuss on the phone with Dr. Bee on-call hospitalist. She is agreed to accept this patient for transfer. Patient be transferred to the facility shortly. Initial ECG Impression Date: May 24, 2019 Initial ECG Impression Time: 02:36 Initial ECG Rate: 71 Initial ECG Rhythm: Normal Sinus Initial ECG Intervals: Normal Initial ECG Impression: Nonspecific Changes Comment Normal sinus rhythm with a heart rate of 71 nonspecific EKG changes nondiagnostic EKG. Diagnostic Imaging Diagonstic Imaging: Xray, CT Comments CT of the brain is negative. Chest x-ray is no acute findings. Departure Impression Primary Impression: COPD (chronic obstructive pulmonary disease) Additional Impressions: RESPIRATORY FAILURE, UNSP, UNSP W HYPOXIA OR HYPERCAPNIA Fall Disposition: XFER SHT-TRM HOSP Condition: Stable Transfer Transfer Reason: Exceeds level of care Time Spoke to Accepting Phy: 05:[address] Bee has accepted this patient transferred to [facility]. Transfer Time: 05:08 Transfer Facility: [facility]. Method of Transfer: EMS Departure-Patient Inst. Referrals: ROCHELLE VASQUEZ MD (PCP/Family) Primary Care Physician MAINOR DAVID MD May 24, 2019 02:57
[2019-05-24 03:10] LABS: BASOPHILS % (AUTO) 1 % (0-10); EOSINOPHILS # (AUTO) 0.3 10^3/uL (0.0-0.3); EOSINOPHILS % (AUTO) 4 % (0-10); HEMATOCRIT 35 % (40-54); LYMPHOCYTES # (AUTO) 1.2 X 10^3 (1.0-4.0); LYMPHOCYTES % (AUTO) 17 % (12-44); MEAN CORPUSCULAR HEMOGLOBIN 29 PG (25-34); MEAN CORPUSCULAR HGB CONC 32 G/DL (32-36); MEAN CORPUSCULAR VOLUME 91 FL (80-99); MEAN PLATELET VOLUME 11.2 FL (7.4-10.4); MONOCYTES # (AUTO) 0.6 X 10^3 (0.0-1.0); MONOCYTES % (AUTO) 8 % (0-12); NEUTROPHILS % (AUTO) 71 % (42-75); PLATELET COUNT 174 10^3/uL (130-400); RED CELL DISTRIBUTION WIDTH 15.2 % (10.0-14.5)
[2019-05-24 03:21] LABS: INR 1.6 (0.8-1.4); PROTHROMBIN TIME PATIENT 20.1 SEC (12.2-14.7)
[2019-05-24 03:29] LABS: BUN/CREATININE RATIO 11; CARBON DIOXIDE 26 MMOL/L (21-32); CHLORIDE 102 MMOL/L (98-107); CREATININE SERUM 0.99 MG/DL (0.60-1.30); GFR ESTIMATED > 60; POTASSIUM 4.2 MMOL/L (3.6-5.0); SODIUM 139 MMOL/L (135-145)
[2019-05-24 03:30] LABS: ALANINE AMINOTRANSFERASE 9 U/L (0-55); ALBUMIN 3.4 GM/DL (3.2-4.5); ALKALINE PHOSPHATASE 92 U/L (40-136); BILIRUBIN,TOTAL 0.5 MG/DL (0.1-1.0); CALCIUM 8.4 MG/DL (8.5-10.1); GLUCOSE 94 MG/DL (70-105); MAGNESIUM 1.7 MG/DL (1.6-2.4)
[2019-05-24 03:32] LABS: ABG OXYGEN SATURATION 99 % (94-100); ABG PCO2 63 MMHG (35-45); ABG PO2 148 MMHG (79-93); ABG TCO2 32.9 MMOL/L (21.0-31.0)
[2019-05-24 03:33] LABS: ALLENS TEST NO; INSPIRED O2 99%; PATIENT TEMP 36.8; VENTILATOR NO
[2019-05-24 04:44] LABS: ABG BASE EXCESS 2.2 MMOL/L (-2.5-2.5); ABG OXYGEN SATURATION 93 % (94-100); ABG PCO2 61 MMHG (35-45); ABG PO2 74 MMHG (79-93); ABG TCO2 31.9 MMOL/L (21.0-31.0); ALLENS TEST NO; INSPIRED O2 99%; PATIENT TEMP 36.8; VENTILATOR NO
--- NOTE | 2019-05-24 06:05 | Diagnostic Imaging Report ---
PROCEDURE: CT head without contrast. TECHNIQUE: Multiple contiguous axial images were obtained through the brain without the use of intravenous contrast. Auto Exposure Controls were utilized during the CT exam to meet ALARA standards for radiation dose reduction. Indication: Altered mental status with hypotension after fall. Comparison: 09/03/2018. Discussion: Exam is degraded by motion artifact. 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 No acute intracranial hemorrhage, mass, midline shift, or hydrocephalus. The ventricles and sulci are normal size and configuration for age. The orbits, sinuses, mastoid air cells, and calvarium are unremarkable. Impression: 1. No acute intracranial abnormality identified. 2. Agree with preliminary report. Dictated by: Dictated on workstation # [id number]
--- NOTE | 2019-05-24 06:50 | NUR ---
Report from Margarita VERDUZCO.
--- NOTE | 2019-05-24 07:00 | NUR ---
Pending transfer to [place]. [facility] EMS crew are on transfer to [facility] and just left in last 30 min. Pt is sleeping on cart with bedrails up X 2. O2 on at 4L/M. IV NS patent to R FA infusing at 125 ml/hr per Suarez pump.
--- NOTE | 2019-05-24 07:01 | Diagnostic Imaging Report ---
Indication: Dyspnea with hypotension after fall. Comparison: 12/04/2018. Discussion: Single portable upright view of the chest was obtained. COPD is stable. Scarring within the lung apices is stable. Normal heart size. No focal consolidation, pleural fluid, or pneumothorax. No osseous abnormality on this single view. Impression: 1. Stable changes of chronic lung disease. Dictated by: Dictated on workstation # [id number]
[2019-05-24] MEDS ORDERED: NS IV 1000 ML 1,000 ML IV SCH (07:09)
--- NOTE | 2019-05-24 08:10 | NUR ---
Call to [facility] to request assist in transfer. [facility] Shift Captain, Brice, states only 3 trucks in service and no extra staff. He reports they did receive a call a few hrs ago from [facility] requesting the same.
--- NOTE | 2019-05-24 08:18 | NUR ---
Call to [facility] and spoke with Kendal Wood Pattern Maker. Request made for a mutual assistance to transfer patient to [place] [facility]. Pt is ALS category with IV fluids and monitoring. There is only 1 dye room helper for [facility] today and can not assist.
--- NOTE | 2019-05-24 09:00 | NUR ---
Spoke to [facility] Judi EMT. [place]. No ALS crew going to be available only BLS when they return. Notified Clinical Coordinator for planning measures on transfer.
--- NOTE | 2019-05-24 09:55 | NUR ---
[facility] EMS arriving back to [facility].
--- NOTE | 2019-05-24 10:00 | NUR ---
[facility] notified for transfer in 30 min, BLS available. Randolph RN Ludy notified for ride along as ALS transfer approved by Sahra VERDUZCO, Clinical Coordinator.
--- NOTE | 2019-05-24 10:20 | NUR ---
EMS here, RN here.
--- NOTE | 2019-05-24 10:30 | NUR ---
[facility] call for an udate. They advice pt has 7-8 empty beer cans in trash. Pt allowed a few 2-3 beers but hoards them. [facility] was notified they must call his family/DPOA.
--- NOTE | 2019-05-24 10:35 | NUR ---
[facility] departing with patient. Report to Ludy VERDUZCO,
--- NOTE | 2019-05-24 11:20 | NUR ---
TRISTAN MESSINA admitted to room 410-1, with an admitting diagnosis of COPD AND FALL, on 05/24/19 from [facility] ED via EMS, accompanied by EMS. TRISTAN MESSINA introduced to surroundings, call light, bed controls, phone, TV, temperature control, lights, meal times, smoking policy, visitor policy, side rail policy, bathrooms and showers. Patient Rights given to patient in the handbook. TRISTAN MESSINA verbalizes understanding that [facility] is not responsible for the loss or damage to any personal effects or valuables that are kept in the patients posession during their hospitalization. The following Patient Care Plans were discussed with the PT: Discharge Planning, FALL, COPD, AND PAIN. TRISTAN MESSINA verbalizes understanding of Interdisciplinary Patient Education. Patient and/or family were informed about the Rapid Response Team and its purpose.
--- NOTE | 2019-05-24 11:20 | NUR ---
ARRIVED PER EMS. SEE ASSESSMENT. DR. WILKINS NOTIFIED OF ARRIVAL.
[2019-05-24] MEDS: NS IV 1000 ML 1,000 ML IV SCH ×2 (11:57→17:38)
[2019-05-24 12:00] VITALS: BP 123/81
[2019-05-24] MEDS ORDERED: CATHETER FLUSH 10 ML SYR IV PRN (12:00)
[2019-05-24 12:18] VITALS: BP 139/69
--- NOTE | 2019-05-24 12:25 | NUR ---
ARRIVED TO ER 1 TO TRANSFER PT TO [facility]. PT LOADED ONTO EMS COT AND PLACED ON SHARK BIOLOGIST WITH IV FLUIDS 9 (NS) RUNNING AT 150 MLS/HR. PT REMAINED STABLE AND VITALS REMAINED WDL. SEE ATTACHED VITALS AND CARDIAC STRIP. PT WAS TAKEN TO ROOM 410 AND CARE TRANSFERRED TO RN.
[2019-05-24] MEDS ORDERED: RT-ALBUTEROL SULF 2.5 MG/3 ML PRE-MIX VIAL INH PRN (12:45)
[2019-05-24 12:48] VITALS: BP 123/81
[2019-05-24] MEDS ORDERED: ALPRAZolam 1 MG (XANAX) TAB PO PRN (13:15)
--- NOTE | 2019-05-24 13:25 | History & Physical-Hospitalist ---
History of Present Illness HPI/Chief Complaint Pt is a 68yoCM with a PMH of MS, a-fib, COPD, and CKD who presented to the ER duet o fall and hypotension. He states that he fell yesterday while he was trying to transfer from his wheelchair to his chair. He denies any owrsening pain from this. He states that was noted to have low blood pressure to day as well and was short of breath. He was found to be hypoxic on arrival and required 2lpm of NC. He is normaly only on oxygen at night. He does complain of some worsening shortness of breath over the past few days. He denies fever. CXR was negative for PNA. ABG was done and revealed a pH of 7.3. He was treated in the ER with a breathing treatment which did not improve his oxygenation and he was admitted. Source: patient Date Seen 05/24/19 Time Seen by a Provider: 13:20 Attending Physician Roz Tiwari MD PCP Feliz Hernandez MD Referring Physician Date of Admission May 24, 2019 at 05:47 Home Medications & Allergies Home Medications Reviewed patient Home Medication Reconciliation performed by pharmacy medication reconciliations ct technician and/or nursing. Patients Allergies have been reviewed. Allergies Allergies Coded Allergies No Known Drug Allergies (Unverified09/08/18) Past Yjrytmn-Ugwcei-Hehwxp Hx Past Med/Social Hx: Reviewed Nursing Past Med/Soc Hx Patient Social History Alcohol Use: Occasionally Uses Number of Drinks Today: AA Alcohol Beverage of Choice: Beer Recreational Drug Use: No Smoking Status: Current Everyday Smoker Type Used: Cigarettes 2nd Hand Smoke Exposure: No Recent Foreign Travel: No Contact w/other who traveled: No Recent Hopitalizations: No Recent Infectious Disease Expo: No Immunizations Up To Date Date of Pneumonia Vaccine: Dec 09, 2017 Date of Influenza Vaccine: Dec 09, 2017 Seasonal Allergies Seasonal Allergies: No Past Medical History Respiratory: COPD Cardiac: Irregular Heartbeat Neurological: Multiple Sclerosis Musculoskeletal: Arthritis Psychosocial: Depression History of Blood Disorders: No Family History FH: CHF (congestive heart failure) 19 FATHER, , Age:70, Onset:60 years & older Review of Systems Constitutional: No chills, No diaphoresis, No dizziness, No fever; malaise EENTM: no symptoms reported Respiratory: see HPI, phlegm, short of breath Cardiovascular: No chest pain, No edema Gastrointestinal: no symptoms reported Genitourinary: no symptoms reported Musculoskeletal: no symptoms reported Skin: no symptoms reported Psychiatric/Neurological: No Symptoms Reported Physical Exam Physical Exam Vital Signs Vital Signs - First Documented 05/24/19 02:30 Temp 36.8 Pulse 72 Resp 18 B/P (MAP) 105/61 (76) Pulse Ox 99 O2 Delivery Nasal Cannula O2 Flow Rate 4.00 FiO2 99 Capillary Refill : Less Than 3 Seconds Height, Weight, BMI Height: 5'8.00" Weight: 156lbs. 2.0oz. 70.067976ht; 19.88 BMI Method:Stated General Appearance: No Apparent Distress, Chronically ill, Thin HEENT: Moist Mucous Membranes; No Scleral Icterus (L), No Scleral Icterus (R) Neck: Normal Inspection, Supple Respiratory: No Accessory Muscle Use, No Respiratory Distress, Decreased Breath Sounds Cardiovascular: Regular Rate, Rhythm, No Murmur Gastrointestinal: Normal Bowel Sounds, Non Tender, Soft Extremity: Pedal Edema, Other (flaccid paralysis of lower extremities, hypotonia) Neurologic/Psychiatric: Alert, Oriented x3, Normal Mood/Affect Skin: Normal Color, Warm/Dry Results Results/Procedures Labs Laboratory Tests 05/24/19 03:05 Patient resulted labs reviewed. Imaging: Reviewed Imaging Report Assessment/Plan Admission Diagnosis Acute on Chronic hypercapnic respiratory failure Admission Status: Observation Assessment and Plan Acute on Chronic hypercapnic respiratory failure COPD exacerbation Steroids Titrate oxygen to keep ssats >90 Negative CXR for pna Pulm consult, appreciate recs pCO2 60 but alert and oriented MS Debility Fall PT/OT Fall risk HTN a-fib Continue home meds Chronic pain Continue home morphine ROZ TIWARI MD May 24, 2019 13:25
[2019-05-24] MEDS ORDERED: polyethylene glycoL POWDER 17 GM (MIRALAX) PACK PO PRN (13:30)
[2019-05-24] MEDS ORDERED: MELATONIN 3 MG TABLET PO PRN (13:30)
[2019-05-24] MEDS ORDERED: PATIENT MAY USE OWN MEDS, ALL PO SCH (13:30)
[2019-05-24] MEDS ORDERED: ALPRAZolam 0.5 MG (XANAX) TAB PO PRN (13:30)
[2019-05-24] MEDS ORDERED: ANTACID SUSP 30 ML UDC (MYLANTA) PO PRN (13:30)
[2019-05-24] MEDS ORDERED: ONDANSETRON 4 MG (ZOFRAN) ORAL DISSOLVE TAB PO PRN (13:30)
[2019-05-24] MEDS ORDERED: predniSONE 20 MG TAB PO NR (13:30)
[2019-05-24] MEDS ORDERED: MILK OF MAGNESIA 400 MG/5 ML 30 ML UDC PO PRN (13:30)
[2019-05-24] MEDS ORDERED: BISACODYL 10 MG SUPP (DULCOLAX) PR PRN (13:30)
[2019-05-24] MEDS: morphine ER 30 MG (MS CONTIN) TAB PO SCH ×2 (13:45→21:42)
--- NOTE | 2019-05-24 15:00 | NUR ---
HAS NOT VOIDED SINCE ADMIT. BLADDER SCAN SHOWS 2434. DR. WILKINS NOTIFIED. ORDER TO CATH TO DD.
--- NOTE | 2019-05-24 15:15 | NUR ---
PT DENIES NEED TO VOID. NO EVIDENCE OF BLADDER DISTENTION. #16F INSERTED WITHOUT DIFFICULTY TO DD WITH RESIDUAL URINE 3100CC. UA TO LAB. PT TOLERATED WELL AND STATES HE DOES NOT FEEL ANY DIFFERENT THAN BEFORE CATHETERIZATION.
[2019-05-24 15:37] LABS: BILIRUBIN,URINE NEGATIVE (NEGATIVE); CLARITY,URINE SL CLOUDY; COLOR,URINE YELLOW; GLUCOSE, URINE (UA) NEGATIVE (NEGATIVE); KETONES,URINE 1+ (NEGATIVE); LEUKOCYTE ESTERASE ,URINE TRACE (NEGATIVE); NITRITE,URINE NEGATIVE (NEGATIVE); PH,URINE 6.5 (5-9); PROTEIN,URINE NEGATIVE (NEGATIVE)
[2019-05-24 15:45] LABS: AMORPHOUS SEDIMENT,UR LARGE AMOR URATES /LPF; BACTERIA,URINE MODERATE /HPF
[2019-05-24] MEDS: RT-ALBUTEROL/IPRATROPIUM 3 ML (DUONEB) VIAL INH SCH ×2 (15:52→18:41)
[2019-05-24 16:39] VITALS: BP 151/65
[2019-05-24 16:42] LABS: AMPHETAMINE SCREEN, URINE NEGATIVE (NEGATIVE); BARBITURATE SCREEN URINE NEGATIVE (NEGATIVE); BENZODIAZEPINES SCREEN URINE POSITIVE (NEGATIVE); CANNABINOID SCREEN, URINE NEGATIVE (NEGATIVE); COCAINE SCREEN URINE NEGATIVE (NEGATIVE); METHADONE STAT NEGATIVE (NEGATIVE); METHAMPHETAMINE SCREEN URINE S NEGATIVE (NEGATIVE); OPIATE SCREEN URINE POSITIVE (NEGATIVE); OXYCODONE STAT NEGATIVE (NEGATIVE); PROPOXYPHENE STAT NEGATIVE (NEGATIVE); TRICYCLIC ANTIDEPRESSANTS SCRE POSITIVE (NEGATIVE)
[2019-05-24] MEDS ORDERED: RT-ALBUTEROL/IPRATROPIUM 3 ML (DUONEB) VIAL INH SCH (18:00)
[2019-05-24] MEDS ORDERED: TAMSULOSIN 0.4 MG (FLOMAX) CAP PO SCH (18:00)
[2019-05-24 20:05] VITALS: BP 158/73
[2019-05-24] MEDS ORDERED: QUEtiapine 25 MG (SEROquel) TAB IMMEDIATE RELEASE PO SCH (21:00)
[2019-05-24] MEDS: AMIODARONE 200 MG (CORDARONE) TAB PO SCH (21:41)
[2019-05-24] MEDS: FAMOTIDINE 20 MG (PEPCID) TABLET PO SCH (21:42)
[2019-05-24] MEDS: PREGABALIN 100 MG (LYRICA) CAPSULE PO SCH (21:42)
[2019-05-24] MEDS: APIXABAN 5 MG (ELIQUIS) TABLET PO SCH (21:44)
[2019-05-24] MEDS: guaiFENesin (MUCINEX) 600 MG TAB PO SCH (21:47)
--- OUTSIDE RECORDS SUMMARY | 2019-05-24 22:44 | XMS REPORT | Continuity of Care Document ---
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 01/27/2012 Curtis Melton MD Final 038.9 SEPTICEMIA NOS 01/27/2012 Curtis Melton MD Final 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 01/27/2012 Curtis Melton MD Final 518.81 AC RESPIRATORY FAILURE 01/27/2012 Curtis Melton MD Final 557.0 AC VASC INSUFF INTESTINE 01/27/2012 Curtis Melton MD Final 567.9 PERITONITIS NOS 01/27/2012 Curtis Melton MD Final 584.5 AC KF W TUBULAR NEPHR 01/27/2012 Curtis Melton MD Admitting 584.9 ACUTE KIDNEY FAILURE NOS 01/27/2012 Curtis Melton MD Final 599.0 URINARY TRACT INF NOS 01/27/2012 Curtis Melton MD Final 707.00 PRESSURE ULCER-SITE NOS 01/27/2012 Curtis Melton MD Final 707.23 STAGE III PRESSURE ULCER 01/27/2012 Curtis Melton MD Final 785.52 SEPTIC SHOCK 01/27/2012 Curtis Melton MD Final 995.92 SEVERE SEPSIS 01/27/2012 Curtis Melton MD Final 996.64 INFECT D/T URETHRAL CATH 01/27/2012 Curtis Melton MD Final 997.31 VENT ASSOC PNEUMONIA 01/27/2012 Curtis Melton MD Final 997.49 SURG COMP NEC-DIGEST 01/27/2012 Curtis Melton MD Final 997.5 SURG COMP-URINARY NEC 01/27/2012 Curtis Melton MD Final V49.86 DNR STATUS 04/07/2012 KRISTIN SOLOMON MD 72 9.1 MYALGIA AND MYOSITIS NOS 04/07/2012 KRISTIN SOLOMON MD 780.79 OTHER MALAISE & FATIGUE 04/07/2012 KRISTIN SOLOMON MD 782.61 PALLOR 04/07/2012 KRISTIN SOLOMON MD 78 4.0 HEADACHE 04/07/2012 KRISTIN SOLOMON MD 787.02 NAUSEA ALONE 04/07/2012 KRISTIN SOLOMON MD 26 3.9 PROTEIN-ZOHAIB MALNUTR NOS 04/07/2012 KRISTIN SOLOMON MD 276.51 DEHYDRATION 04/07/2012 KRISTIN SOLOMON MD 31 1 DEPRESSIVE DISORDER NEC 04/07/2012 KRISTIN SOLOMON MD 787.91 DIARRHEA 04/07/2012 KRISTIN SOLOMON MD V45.89 POSTSURGICAL STATUS NEC 04/07/2012 KRISTIN SOLOMON MD 26 3.9 PROTEIN-ZOHAIB MALNUTR NOS 04/07/2012 KRISTIN SOLOMON MD 276.51 DEHYDRATION 04/07/2012 KRISTIN SOLOMON MD 31 1 DEPRESSIVE DISORDER NEC 04/07/2012 KRISTIN SOLOMON MD 787.91 DIARRHEA 04/07/2012 KRISTIN SOLOMON MD V45.89 POSTSURGICAL STATUS NEC 04/14/2012 KRISTIN SOLOMON MD 04 1.3 K. PNEUMONIAE INFECT 04/14/2012 KRISTIN SOLOMON MD 04 1.7 PSEUDOMONAS INFECT NOS 04/14/2012 KRISTIN SOLOMON MD 26 3.9 PROTEIN-ZOHAIB MALNUTR NOS 04/14/2012 KRISTIN SOLOMON MD 31 1 DEPRESSIVE DISORDER NEC 04/14/2012 KRISTIN SOLOMON MD 55 8.9 NONINF GASTROENTERIT NEC 04/14/2012 KRISTIN SOLOMON MD 57 9.3 INTEST POSTOP NONABSORB 04/14/2012 KRISTIN SOLOMON MD 58 5.9 CHRONIC KIDNEY DIS NOS 04/14/2012 KRISTIN SOLOMON MD 91 6.0 ABRASION HIP LEG 04/14/2012 KRISTIN SOLOMON MD E000.9 EXT CAUSE STATUS NOS 04/14/2012 KRISTIN SOLOMON MD E0 30 ACTIVITY NOS 04/14/2012 KRISTIN SOLOMON MD E849.7 ACCID IN RESIDENT INSTIT 04/14/2012 KRISTIN SOLOMON MD E928.9 ACCIDENT NOS 04/14/2012 KRISTIN SOLOMON MD V1 1.3 HX OF ALCOHOLISM 04/21/2012 KRISTIN SOLOMON MD 27 6.8 HYPOPOTASSEMIA 04/21/2012 KRISTIN SOLOMON MD 28 5.9 ANEMIA NOS 04/25/2012 KRISTIN SOLOMON MD 599.70 HEMATURIA NOS 04/25/2012 KRISTIN SOLOMON MD 788.20 RETENTION OF URINE, UNSP 04/28/2012 KRISTIN SOLOMON MD 27 6.8 HYPOPOTASSEMIA 04/28/2012 KRISTIN SOLOMON MD 28 5.9 ANEMIA NOS 05/05/2012 KRISTIN SOLOMON MD 27 6.8 HYPOPOTASSEMIA 05/05/2012 KRISTIN SOLOMON MD 28 5.9 ANEMIA NOS 05/05/2012 KRISTIN SOLOMON MD 34 0 MULTIPLE SCLEROSIS 05/12/2012 KRISTIN SOLOMON MD 72 9.5 PAIN IN LIMB 05/12/2012 KRISTIN SOLOMON MD 780.99 GENERAL SYMPTOMS NEC 05/12/2012 KRISTIN SOLOMON MD 78 2.3 EDEMA 05/14/2012 KRISTIN SOLOMON MD 31 1 DEPRESSIVE DISORDER NEC 05/14/2012 KRISTIN SOLOMON MD 34 0 MULTIPLE SCLEROSIS 05/14/2012 KRISTIN SOLOMON MD 44 7.1 STRICTURE OF ARTERY 05/14/2012 KRISTIN SOLOMON MD 453.40 ACUTE DVT LEG NOS 05/14/2012 KRISTIN SOLOMON MD 57 9.3 INTEST POSTOP NONABSORB 05/14/2012 KRISTIN SOLOMON MD 72 4.2 LUMBAGO 05/20/2012 KRISTIN SOLOMON MD 27 6.8 HYPOPOTASSEMIA 05/20/2012 KRISTIN SOLOMON MD 28 5.9 ANEMIA NOS 05/20/2012 KRISTIN SOLOMON MD V58.61 ANTICOAGULANT USE LONG T 05/29/2012 KRISTIN SOLOMON MD V58.61 ANTICOAGULANT USE LONG T 06/09/2012 KRISTIN SOLOMON MD 453.40 ACUTE DVT LEG NOS 06/10/2012 KRISTIN SOLOMON MD 275.41 HYPOCALCEMIA 06/10/2012 KRISTIN SOLOMON MD 27 6.8 HYPOPOTASSEMIA 06/10/2012 KRISTIN SOLOMON MD 28 5.9 ANEMIA NOS 07/15/2012 KRISTIN SOLOMON MD 31 1 DEPRESSIVE DISORDER NEC 07/15/2012 KRISTIN SOLOMON MD 57 9.3 INTEST POSTOP NONABSORB 07/25/2012 KRISTIN SOLOMON MD 59 9.0 URIN TRACT INFECTION NOS 07/25/2012 KRISTIN SOLOMON MD V58.61 ANTICOAGULANT USE LONG T 07/29/2012 KRISTIN SOLOMON MD 31 1 DEPRESSIVE DISORDER NEC 07/29/2012 KRISTIN SOLOMON MD 780.52 INSOMNIA NOS 07/29/2012 KRISTIN SOLOMON MD 780.79 OTHER MALAISE & FATIGUE 07/29/2012 KRISTIN SOLOMON MD V58.61 ANTICOAGULANT USE LONG T 07/30/2012 FREDY HARRINGTON MD 276.51 DEHYDRATION 07/30/2012 FREDY HARRINGTON MD 458.9 HYPOTENSION NOS 07/30/2012 FREDY HARRINGTON MD 038.9 SEPTICEMIA NOS 07/30/2012 FREDY HARRINGTON MD 288.60 LEUKOCYTOSIS NOS 07/30/2012 FREDY HARRINGTON MD 382.9 OTITIS MEDIA NOS 07/30/2012 FREDY HARRINGTON MD 458.9 HYPOTENSION NOS 07/30/2012 FREDY HARRINGTON MD 780.60 FEVER NOS 07/30/2012 FREDY HARRINGTON MD 785.0 TACHYCARDIA NOS 07/30/2012 FREDY HARRINGTON MD 995.91 SEPSIS 07/30/2012 KRISTIN SOLOMON MD 03 8.9 SEPTICEMIA NOS 07/30/2012 KRISTIN SOLOMON MD 288.60 LEUKOCYTOSIS NOS 07/30/2012 KRISTIN SOLOMON MD 38 2.9 OTITIS MEDIA NOS 07/30/2012 KRISTIN SOLOMON MD 45 8.9 HYPOTENSION NOS 07/30/2012 KRISTIN SOLOMON MD 780.60 FEVER NOS 07/30/2012 KRISTIN SOLOMON MD 78 5.0 TACHYCARDIA NOS 07/30/2012 KRISTIN SOLOMON MD 995.91 SEPSIS 08/03/2012 FREDY HARRINGTON MD 038.9 SEPTICEMIA NOS 08/03/2012 FREDY HARRINGTON MD 276.51 DEHYDRATION 08/03/2012 FREDY HARRINGTON MD 288.50 DECREASED WBC COUNT 08/03/2012 FREDY HARRINGTON MD 311 DEPRESSIVE DISORDER NEC 08/03/2012 FREDY HARRINGTON MD 458.9 HYPOTENSION NOS 08/03/2012 FREDY HARRINGTON MD 579.3 INTEST POSTOP NONABSORB 08/03/2012 FREDY HARRINGTON MD 785.0 TACHYCARDIA NOS 08/03/2012 FREDY HARRINGTON MD 995.91 SEPSIS 08/06/2012 KRISTIN SOLOMON MD V58.61 ANTICOAGULANT USE LONG T 08/26/2012 KRISTIN SOLOMON MD V58.61 ANTICOAGULANT USE LONG T 09/17/2012 KRISTIN SOLOMON MD 40 1.9 HYPERTENSION NOS 09/17/2012 KRISTIN SOLOMON MD 780.79 OTHER MALAISE & FATIGUE 09/17/2012 KRISTIN SOLOMON MD V58.61 ANTICOAGULANT USE LONG T 09/24/2012 KRISTIN SOLOMON MD 27 6.8 HYPOPOTASSEMIA 09/24/2012 KRISTIN SOLOMON MD 303.90 ALCOH DEP NEC/NOS-UNSPEC 09/24/2012 KRISTIN SOLOMON MD V58.61 ANTICOAGULANT USE LONG T 09/24/2012 KRISTIN SOLOMON MD V58.69 DIGITAL ASSISTANT MEDICATION USE 10/08/2012 KRISTIN SOLOMON MD 40 1.9 HYPERTENSION NOS 10/29/2012 KRISTIN SOLOMON MD 27 5.2 DIS MAGNESIUM METABOLISM 10/29/2012 KRISTIN SOLOMON MD 40 1.9 HYPERTENSION NOS 10/29/2012 KRISTIN SOLOMON MD 79 4.7 ABN BASAL METABOL STUDY 11/07/2012 KRISTIN SOLOMON MD V58.61 ANTICOAGULANT USE LONG T 12/03/2012 KRISTIN SOLOMON MD V58.61 ANTICOAGULANT USE LONG T 12/30/2012 KRISTIN SOLOMON MD V58.61 ANTICOAGULANT USE LONG T 01/14/2013 KRISTIN SOLOMON MD 04 1.7 PSEUDOMONAS INFECT NOS 01/14/2013 KRISTIN SOLOMON MD 380.10 INFEC OTITIS EXTERNA NOS 01/14/2013 KRISTIN SOLOMON MD 388.70 OTALGIA NOS 01/23/2013 KRISTIN SOLOMON MD 34 0 MULTIPLE SCLEROSIS 01/26/2013 KRISTIN SOLOMON MD 381.01 AC SEROUS OTITIS MEDIA 01/26/2013 KRISTIN SOLOMON MD V58.61 ANTICOAGULANT USE LONG T 01/26/2013 KRISTIN SOLOMON MD V58.62 AFRCARE LT ANTIBIOTC USE 01/29/2013 KRISTIN SOLOMON MD 34 0 MULTIPLE SCLEROSIS 02/02/2013 KRISTIN SOLOMON MD V58.69 SHELTER MEDICATION USE 02/06/2013 KRISTIN SOLOMON MD V58.69 SHELTER MEDICATION USE 02/10/2013 KRISTIN SOLOMON MD 275.41 HYPOCALCEMIA 02/10/2013 KRISTIN SOLOMON MD V58.69 DIGITAL ASSISTANT MEDICATION USE 02/11/2013 KRISTIN SOLOMON MD 04 1.6 PROTEUS INFECTION NOS 02/11/2013 KRISTIN SOLOMON MD 04 1.7 PSEUDOMONAS INFECT NOS 02/11/2013 KRISTIN SOLOMON MD 388.70 OTALGIA NOS 02/11/2013 KRISTIN SOLOMON MD 38 8.8 DISORDERS OF EAR NEC 02/12/2013 KRISTIN SOLOMON MD V58.69 SHELTER MEDICATION USE 02/16/2013 KRISTIN SOLOMON MD 34 0 MULTIPLE SCLEROSIS 02/16/2013 KRISTIN SOLOMON MD 40 1.9 HYPERTENSION NOS 02/16/2013 KRISTIN SOLOMON MD V58.69 DIGITAL ASSISTANT MEDICATION USE 02/19/2013 KRISTIN SOLOMON MD V58.61 ANTICOAGULANT USE LONG T 02/19/2013 KRISTIN SOLOMON MD V58.69 DIGITAL ASSISTANT MEDICATION USE 02/20/2013 KRISTIN SOLOMON MD V58.61 ANTICOAGULANT USE LONG T 02/20/2013 KRISTIN SOLOMON MD V58.69 DIGITAL ASSISTANT MEDICATION USE 02/21/2013 KRISTIN SOLOMON MD V58.61 ANTICOAGULANT USE LONG T 02/22/2013 KRISTIN SOLOMON MD V58.61 ANTICOAGULANT USE LONG T 02/23/2013 KRISTIN SOLOMON MD 34 0 MULTIPLE SCLEROSIS 02/23/2013 KRISTIN SOLOMON MD V58.61 ANTICOAGULANT USE LONG T 02/25/2013 KRISTIN SOLOMON MD 04 1.6 PROTEUS INFECTION NOS 02/25/2013 KRISTIN SOLOMON MD 04 1.7 PSEUDOMONAS INFECT NOS 02/25/2013 KRISTIN SOLOMON MD 386.30 LABYRINTHITIS NOS 02/27/2013 KRISTIN SOLOMON MD V58.61 ANTICOAGULANT USE LONG T 03/02/2013 KRISTIN SOLOMON MD 305.00 ALCOHOL ABUSE-UNSPEC 03/02/2013 KRISTIN SOLOMON MD 30 5.1 TOBACCO USE DISORDER 03/02/2013 KRISTIN SOLOMON MD 38 2.9 OTITIS MEDIA NOS 03/10/2013 KRISTIN SOLOMON MD V58.61 ANTICOAGULANT USE LONG T 03/31/2013 KRISTIN SOLOMON MD V58.61 ANTICOAGULANT USE LONG T 04/27/2013 KRISTIN SOLOMON MD 38 2.9 OTITIS MEDIA NOS 05/05/2013 KRISTIN SOLOMON MD V58.61 ANTICOAGULANT USE LONG T 05/25/2013 KRISTIN SOLOMON MD 28 5.9 ANEMIA NOS 05/25/2013 KRISTIN SOLOMON MD 40 1.9 HYPERTENSION NOS 05/25/2013 KRISTIN SOLOMON MD V58.61 ANTICOAGULANT USE LONG T 05/25/2013 KRISTIN SOLOMON MD V58.69 DIGITAL ASSISTANT MEDICATION USE 06/02/2013 KRISTIN SOLOMON MD V58.61 ANTICOAGULANT USE LONG T 06/09/2013 KRISTIN SOLOMON MD V58.61 ANTICOAGULANT USE LONG T 07/02/2013 KRISTIN SOLOMON MD 40 1.9 HYPERTENSION NOS 07/02/2013 KRISTIN SOLOMON MD 42 8.0 CHF NOS 07/02/2013 KRISTIN SOLOMON MD 49 6 CHR AIRWAY OBSTRUCT NEC 07/22/2013 KRISTIN SOLOMON MD 276.51 DEHYDRATION 07/22/2013 KRISTIN SOLOMON MD 40 1.9 HYPERTENSION NOS 07/22/2013 KRISTIN SOLOMON MD V58.61 ANTICOAGULANT USE LONG T 10/07/2013 KRISTIN SOLOMON MD 31 1 DEPRESSIVE DISORDER NEC 10/07/2013 KRISTIN SOLOMON MD 40 1.9 HYPERTENSION NOS 10/07/2013 KRISTIN SOLOMON MD 57 9.3 INTEST POSTOP NONABSORB 10/19/2013 FREDY HARRINGTON MD 787.01 NAUSEA WITH VOMITING 10/19/2013 FREDY HARRINGTON MD 789.00 ABDOMINAL PAIN, UNSPECIF 10/19/2013 KRISTIN SOLOMON MD 041.04 Strep Inf NEC/Unss Grp D 10/19/2013 KRISTIN SOLOMON MD 303.01 AC ALCOHOL INTOX-CONTIN 10/19/2013 KRISTIN SOLOMON MD 535.50 UNS GASTRITIS/DUO WO HEM 10/19/2013 KRISTIN SOLOMON MD 59 9.0 URIN TRACT INFECTION NOS 10/19/2013 KRISTIN SOLOMON MD 79 1.9 ABN URINE FINDINGS NEC 10/19/2013 KRISTIN SOLOMON MD V15.81 HX OF PAST NONCOMPLIANCE 10/19/2013 FREDY HARRINGTON MD 041.04 Strep Inf NEC/Unss Grp D 10/19/2013 FREDY HARRINGTON MD 303.01 AC ALCOHOL INTOX-CONTIN 10/19/2013 FREDY HARRINGTON MD 535.50 UNS GASTRITIS/DUO WO HEM 10/19/2013 FREDY HARRINGTON MD 599.0 URIN TRACT INFECTION NOS 10/19/2013 FREDY HARRINGTON MD 791.9 ABN URINE FINDINGS NEC 10/19/2013 FREDY HARRINGTON MD V15.81 HX OF PAST NONCOMPLIANCE 12/22/2013 KRISTIN SOLOMON MD 72 9.5 PAIN IN LIMB 02/25/2014 KRISTIN SOLOMON MD 49 6 CHR AIRWAY OBSTRUCT NEC 02/25/2014 KRISTIN SOLOMON MD 55 8.9 NONINF GASTROENTERIT NEC 02/25/2014 KRISTIN SOLOMON MD 78 6.2 COUGH 09/09/2014 KRISTIN SOLOMON MD 49 6 CHR AIRWAY OBSTRUCT NEC 09/09/2014 KRISTIN SOLOMON MD 57 9.3 INTEST POSTOP NONABSORB 09/09/2014 KRISTIN SOLOMON MD 78 6.2 COUGH 11/16/2014 KRISTIN SOLOMON MD V72.84 PRE-OP EXAMINATION, UNSP 02/11/2015 KRISTIN SOLOMON MD R10.30 Lower abdominal pain, unspecified 02/11/2015 KRISTIN SOLOMON MD R1 4.1 Gas pain 02/11/2015 KRISTIN SOLOMON MD R1 4.3 Flatulence 07/07/2015 JOANNA ISIDRO MD 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, recurrent, severe w psych symptoms 07/07/2015 JOANNA ISIDRO MD F41.9 Anxiety disorder, unspecified 07/07/2015 JOANNA ISIDRO MD G89.29 Other chronic pain 07/07/2015 JOANNA ISIDRO MD I10 Essential (primary) hypertension 07/07/2015 JOANNA ISIDRO MD I50.9 Heart failure, unspecified 07/07/2015 JOANNA ISIDRO MD J30.9 Allergic rhinitis, unspecified 07/07/2015 JOANNA ISIDRO MD J44.9 Chronic obstructive pulmonary disease, unspecified 07/07/2015 JOANNA ISIDRO MD K21.9 Gastro-esophageal reflux disease without esophagitis 07/07/2015 JOANNA ISIDRO MD R19.7 Diarrhea, unspecified 07/07/2015 JOANNA ISIDRO MD Z79.89 9 Other senior care (current) drug therapy 07/19/2015 EBEN JUÁREZ MD 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, recurrent, severe w psych sym ptoms 07/19/2015 EBEN JUÁREZ MD F41.9 Anxiety disorder, unspecified 07/19/2015 EBEN JUÁREZ MD G89.29 Other chronic pain 07/19/2015 EBEN JUÁREZ MD I10 Essential (primary) hypertension 07/19/2015 EBEN JUÁREZ MD I50.9 Heart failure, unspecified 07/19/2015 BEEN JUÁREZ MD J30.9 Allergic rhinitis, unspecified 07/19/2015 EBEN JUÁREZ MD J44.9 Chronic obstructive pulmonary disease, unspecified 07/19/2015 EBEN JUÁREZ MD K21.9 Gastro-esophageal reflux disease without esophagitis 07/19/2015 EBEN JUÁREZ MD R19.7 Diarrhea, unspecified 02/23/2016 GRACE MARTINEZ JR, MD F32.9 Major depressive disorder, single episode, unspecified 02/23/2016 GRACE MARTINEZ JR, MD F41.9 Anxiety disorder, unspecified 02/23/2016 GRACE MARTINEZ JR, MD I10 Essential (primary) hypertension 02/23/2016 GRACE MARTINEZ JR, MD I50.9 Heart failure, unspecified 02/23/2016 GRACE MARTINEZ JR, MD J30.9 Allergic rhinitis, unspecified 02/23/2016 GRACE MARTINEZ JR, MD J44.9 Chronic obstructive pulmonary disease, unspecified 02/23/2016 JUAN MCCABE MD, GRACE Solorio K21.9 Gastro-esophageal reflux disease without esophagitis 02/23/2016 JUAN MCCABE MD, GRACE Solorio M62.81 Muscle weakness (generalized) 02/23/2016 JUAN MCCABE MD, GRACE Solorio M62.9 Disorder of muscle, unspecified 02/23/2016 JUAN MCCABE MD, GRACE Solorio Q82.0 Hereditary lymphedema 02/23/2016 JUAN MCCABE MD, GRACE Solorio R26.89 Other abnormalities of gait and mobility 02/23/2016 GRACE MARTINEZ JR, MD R52 Pain, unspecified 02/23/2016 JUAN MCCABE MD, GRACE Solorio Z12.5 Encounter for screening for malignant neoplasm of pros astudillo 02/28/2016 GRACE MARTINEZ JR, MD I10 Essential (primary) hypertension 02/28/2016 JUAN MCCABE MD, GRACE Solorio I50.9 Heart failure, unspecified 02/28/2016 JUAN MCCABE MD, GRACE Solorio J44.9 Chronic obstructive pulmonary disease, unspecified 02/28/2016 JUAN MCCABE MD, GRACE Solorio K21.9 Gastro-esophageal reflux disease without esophagitis 02/28/2016 JUAN MCCABE MD, GRACE Solorio M62.81 Muscle weakness (generalized) 02/28/2016 GRACE MARTINEZ JR, MD R52 Pain, unspecified 04/02/2018 BELLA KARIMI APRN Ot L89.153 PRESSURE ULCER OF [place], STAGE 3 04/23/2018 BELLA KARIMI APRN Ot L89.153 PRESSURE ULCER OF [place], STAGE 3 04/29/2018 BELLA KARIMI APRN Ot L89.153 PRESSURE ULCER OF [place], STAGE 3 04/30/2018 BELLA KARIMI APRN Ot L89.153 PRESSURE ULCER OF [place], STAGE 3 04/30/2018 BELLA KARIMI APRN Ot Z53.8 PROCEDURE AND TREATMENT NOT CARRIED OUT 04/30/2018 BELLA KARIMI APRN Ot L89.153 PRESSURE ULCER OF [place], STAGE 3 05/05/2018 BELLA KARIMI APRN Ot L89.153 PRESSURE ULCER OF [place], STAGE 3 05/19/2018 BELLA KARIMI R ADULT PROTECTIVE CASEWORKER Ot L89.153 PRESSURE ULCER OF [place], STAGE 3 05/19/2018 BELLA KARIMI R ADULT PROTECTIVE CASEWORKER Ot Z96.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, BILATE 05/22/2018 TREV BELLA R ADULT PROTECTIVE CASEWORKER Ot L89.153 PRESSURE ULCER OF [place], STAGE 3 05/23/2018 BELLA KARIMI R ADULT PROTECTIVE CASEWORKER Ot L89.153 PRESSURE ULCER OF [place], STAGE 3 05/27/2018 TREV BELLA R ADULT PROTECTIVE CASEWORKER Ot L89.153 PRESSURE ULCER OF [place], STAGE 3 05/27/2018 TREV BELLA R ADULT PROTECTIVE CASEWORKER Ot L89.153 PRESSURE ULCER OF [place], STAGE 3 05/27/2018 TREV BELLA R ADULT PROTECTIVE CASEWORKER Ot L89.153 PRESSURE ULCER OF [place], STAGE 3 05/27/2018 BELLA KARIMI ADULT PROTECTIVE CASEWORKER Ot Z53.8 PROCEDURE AND TREATMENT NOT CARRIED OUT 05/27/2018 TREV BELLA R ADULT PROTECTIVE CASEWORKER Ot L89.153 PRESSURE ULCER OF [place], STAGE 3 05/27/2018 BELLA KARIMI ADULT PROTECTIVE CASEWORKER Ot L89.153 PRESSURE ULCER OF [place], STAGE 3 05/27/2018 BELLA KARIMI ADULT PROTECTIVE CASEWORKER Ot Z96.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, BILATE 05/27/2018 TREV BELLA R ADULT PROTECTIVE CASEWORKER Ot L89.153 PRESSURE ULCER OF [place], STAGE 3 05/29/2018 BELLA KARIMI R ADULT PROTECTIVE CASEWORKER Ot L89.153 PRESSURE ULCER OF [place], STAGE 3 05/29/2018 BELLA KARIMI R ADULT PROTECTIVE CASEWORKER Ot Z96.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, BILATE 05/30/2018 FIORELLA ROQUE MD Ot A41 .9 SEPSIS, UNSPECIFIED ORGANISM 05/30/2018 FIORELLA ROQUE MD Ot E83.42 HYPOMAGNESEMIA 05/30/2018 FIORELLA ROQUE MD Ot G35 MULTIPLE SCLEROSIS 05/30/2018 FIORELLA ROQUE MD Ot G89 .4 CHRONIC PAIN SYNDROME 05/30/2018 FIORELLA ROQUE MD Ot I25.10 ATHSCL HEART DISEASE OF [place] CORONARY 05/30/2018 FIORELLA ROQUE MD Ot I48 .0 PAROXYSMAL ATRIAL FIBRILLATION 05/30/2018 FIORELLA ROQUE MD Ot J18 .1 LOBAR PNEUMONIA, UNSPECIFIED ORGANISM 05/30/2018 FIORELLA ROQUE MD Ot J44 .0 CHRONIC OBSTRUCTIVE PULMON DISEASE W ACU 05/30/2018 FIORELLA ROQUE MD Ot J44 .1 CHRONIC OBSTRUCTIVE PULMONARY DISEASE W 05/30/2018 FIORELLA ROQUE MD Ot L89.154 PRESSURE ULCER OF [place], STAGE 4 05/30/2018 FIORELLA ROQUE MD Ot R65.20 SEVERE SEPSIS WITHOUT SEPTIC SHOCK 05/30/2018 FIORELLA ROQUE MD Ot R91 .1 SOLITARY PULMONARY NODULE 05/30/2018 FIORELLA ROQUE MD Ot Z79.01 SHELTER (CURRENT) USE OF ANTICOAGULANT 05/30/2018 FIORELLA ROQUE MD Ot Z86.711 PERSONAL HISTORY OF PULMONARY EMBOLISM 05/30/2018 FIORELLA ROQUE MD Ot Z86.718 PERSONAL HISTORY OF OTHER VENOUS THROMBO 05/30/2018 FIORELLA ROQUE MD Ot Z87.19 PERSONAL HISTORY OF OTHER DISEASES OF TH 05/30/2018 FIORELLA ROQUE MD Ot Z93 .3 COLOSTOMY STATUS 05/30/2018 FIORELLA ROQUE MD Ot Z95 .5 PRESENCE OF CORONARY ANGIOPLASTY IMPLANT 05/30/2018 FIORELLA ROQUE MD Ot Z99 .3 DEPENDENCE ON WHEELCHAIR 05/30/2018 FIORELLA ROQUE MD Ot Z99.81 DEPENDENCE ON SUPPLEMENTAL OXYGEN 05/31/2018 FIORELLA ROQUE MD Ot A41 .9 SEPSIS, UNSPECIFIED ORGANISM 05/31/2018 FIORELLA ROQUE MD Ot E83.42 HYPOMAGNESEMIA 05/31/2018 FIORELLA ROQUE MD Ot G35 MULTIPLE SCLEROSIS 05/31/2018 FIORELLA ROQUE MD Ot G89 .4 CHRONIC PAIN SYNDROME 05/31/2018 FIORELLA ROQUE MD Ot I25.10 ATHSCL HEART DISEASE OF [place] CORONARY 05/31/2018 FIORELLA ROQUE MD Ot I48 .0 PAROXYSMAL ATRIAL FIBRILLATION 05/31/2018 FIORELLA ROQUE MD Ot J18 .1 LOBAR PNEUMONIA, UNSPECIFIED ORGANISM 05/31/2018 FIORELLA ROQUE MD Ot J44 .0 CHRONIC OBSTRUCTIVE PULMON DISEASE W ACU 05/31/2018 FIORELLA ROQUE MD Ot J44 .1 CHRONIC OBSTRUCTIVE PULMONARY DISEASE W 05/31/2018 FIORELLA ROQUE MD Ot L89.154 PRESSURE ULCER OF [place], STAGE 4 05/31/2018 FIORELLA ROQUE MD Ot R65.20 SEVERE SEPSIS WITHOUT SEPTIC SHOCK 05/31/2018 FIORELLA ROQUE MD Ot R91 .1 SOLITARY PULMONARY NODULE 05/31/2018 FIORELLA ROQUE MD Ot Z79.01 SHELTER (CURRENT) USE OF ANTICOAGULANT 05/31/2018 FIORELLA ROQUE MD Ot Z86.711 PERSONAL HISTORY OF PULMONARY EMBOLISM 05/31/2018 FIORELLA ROQUE MD, Ot Z86.718 PERSONAL HISTORY OF OTHER VENOUS THROMBO 05/31/2018 FIORELLA ROQUE MD Ot Z87.19 PERSONAL HISTORY OF OTHER DISEASES OF TH 05/31/2018 FIORELLA ROQUE MD, Ot Z93 .3 COLOSTOMY STATUS 05/31/2018 FIORELLA ROQUE MD Ot Z95 .5 PRESENCE OF CORONARY ANGIOPLASTY IMPLANT 05/31/2018 FIORELLA ROQUE MD Ot Z99 .3 DEPENDENCE ON WHEELCHAIR 05/31/2018 FIORELLA ROQUE MD Ot Z99.81 DEPENDENCE ON SUPPLEMENTAL OXYGEN 06/01/2018 FIORELLA ROQUE MD Ot A41 .9 SEPSIS, UNSPECIFIED ORGANISM 06/01/2018 FIORELLA ROQUE MD Ot E83.42 HYPOMAGNESEMIA 06/01/2018 FIORELLA ROQUE MD Ot G35 MULTIPLE SCLEROSIS 06/01/2018 FIORELLA ROQUE MD Ot G89 .4 CHRONIC PAIN SYNDROME 06/01/2018 FIORELLA ROQUE MD Ot I25.10 ATHSCL HEART DISEASE OF [place] CORONARY 06/01/2018 FIORELLA ROQUE MD Ot I48 .0 PAROXYSMAL ATRIAL FIBRILLATION 06/01/2018 FIORELLA ROQUE MD Ot J18 .1 LOBAR PNEUMONIA, UNSPECIFIED ORGANISM 06/01/2018 FIORELLA ROQUE MD Ot J44 .0 CHRONIC OBSTRUCTIVE PULMON DISEASE W ACU 06/01/2018 FIORELLA ROQUE MD, Ot J44 .1 CHRONIC OBSTRUCTIVE PULMONARY DISEASE W 06/01/2018 FIORELLA ROQUE MD Ot L89.154 PRESSURE ULCER OF [place], STAGE 4 06/01/2018 FIORELLA ROQUE MD Ot R65.20 SEVERE SEPSIS WITHOUT SEPTIC SHOCK 06/01/2018 FIORELLA ROQUE MD Ot R91 .1 SOLITARY PULMONARY NODULE 06/01/2018 FIORELLA ROQUE MD Ot Z79.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 06/01/2018 FIORELLA ROQUE MD Ot Z86.711 PERSONAL HISTORY OF PULMONARY EMBOLISM 06/01/2018 FIORELLA ROQUE MD Ot Z86.718 PERSONAL HISTORY OF OTHER VENOUS THROMBO 06/01/2018 FIORELLA ROQUE MD Ot Z87.19 PERSONAL HISTORY OF OTHER DISEASES OF TH 06/01/2018 FIORELLA ROQUE MD Ot Z93 .3 COLOSTOMY STATUS 06/01/2018 FIORELLA ROQUE MD Ot Z95 .5 PRESENCE OF CORONARY ANGIOPLASTY IMPLANT 06/01/2018 FIORELLA ROQUE MD Ot Z99 .3 DEPENDENCE ON WHEELCHAIR 06/01/2018 FIORELLA ROQUE MD Ot Z99.81 DEPENDENCE ON SUPPLEMENTAL OXYGEN 06/02/2018 FIORELLA ROQUE MD Ot A41 .9 SEPSIS, UNSPECIFIED ORGANISM 06/02/2018 FIORELLA ROQUE MD Ot E83.42 HYPOMAGNESEMIA 06/02/2018 FIORELLA ROQUE MD Ot G35 MULTIPLE SCLEROSIS 06/02/2018 FIORELLA ROQUE MD Ot G89 .4 CHRONIC PAIN SYNDROME 06/02/2018 FIORELLA ROQUE MD Ot I25.10 ATHSCL HEART DISEASE OF [place] CORONARY 06/02/2018 FIORELLA ROQUE MD Ot I48 .0 PAROXYSMAL ATRIAL FIBRILLATION 06/02/2018 FIORELLA ROQUE MD Ot J18 .1 LOBAR PNEUMONIA, UNSPECIFIED ORGANISM 06/02/2018 FIORELLA ROQUE MD Ot J44 .0 CHRONIC OBSTRUCTIVE PULMON DISEASE W ACU 06/02/2018 FIORELLA ROQUE MD Ot J44 .1 CHRONIC OBSTRUCTIVE PULMONARY DISEASE W 06/02/2018 FIORELLA ROQUE MD Ot L89.154 PRESSURE ULCER OF [place], STAGE 4 06/02/2018 FIORELLA ROQUE MD Ot R65.20 SEVERE SEPSIS WITHOUT SEPTIC SHOCK 06/02/2018 FIORELLA ROQUE MD Ot R91 .1 SOLITARY PULMONARY NODULE 06/02/2018 FIORELLA ROQUE MD Ot 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.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 06/02/2018 FIORELLA ROQUE MD Ot Z86.711 PERSONAL HISTORY OF PULMONARY EMBOLISM 06/02/2018 FIORELLA ROQUE MD Ot Z86.718 PERSONAL HISTORY OF OTHER VENOUS THROMBO 06/02/2018 FIORELLA ROQUE MD Ot Z87.19 PERSONAL HISTORY OF OTHER DISEASES OF TH 06/02/2018 FIORELLA ROQUE MD Ot Z93 .3 COLOSTOMY STATUS 06/02/2018 FIORELLA ROQUE MD Ot Z95 .5 PRESENCE OF CORONARY ANGIOPLASTY IMPLANT 06/02/2018 FIORELLA ROQUE MD Ot Z99 .3 DEPENDENCE ON WHEELCHAIR 06/02/2018 FIORELLA ROQUE MD Ot Z99.81 DEPENDENCE ON SUPPLEMENTAL OXYGEN 06/02/2018 BELLA KARIMI APRN Ot L89.153 PRESSURE ULCER OF [place], STAGE 3 06/02/2018 FIORELLA ROQUE MD Ot A41 .9 SEPSIS, UNSPECIFIED ORGANISM 06/02/2018 FIORELLA ROQUE MD Ot E83.42 HYPOMAGNESEMIA 06/02/2018 FIORELLA ROQUE MD Ot E87 .1 HYPO-OSMOLALITY AND HYPONATREMIA 06/02/2018 FIORELLA ROQUE MD Ot E87 .6 HYPOKALEMIA 06/02/2018 FIORELLA ROQUE MD Ot F17.210 NICOTINE DEPENDENCE, CIGARETTES, UNCOMPL 06/02/2018 FIORELLA ROQUE MD Ot G35 MULTIPLE SCLEROSIS 06/02/2018 FIORELLA ROQUE MD Ot G62 .9 POLYNEUROPATHY, UNSPECIFIED 06/02/2018 FIORELLA ROQUE MD Ot G81.91 HEMIPLEGIA, UNSPECIFIED AFFECTING RIGHT 06/02/2018 FIROELLA ROQUE MD Ot G81.94 HEMIPLEGIA, UNSPECIFIED AFFECTING LEFT N 06/02/2018 FIORELLA ROQUE MD Ot G89 .4 CHRONIC PAIN SYNDROME 06/02/2018 FIORELLA ROQUE MD Ot I25.10 ATHSCL HEART DISEASE OF [place] CORONARY 06/02/2018 FIORELLA ROQUE MD Ot I48 .0 PAROXYSMAL ATRIAL FIBRILLATION 06/02/2018 FIORELLA ROQUE MD Ot J18 .1 LOBAR PNEUMONIA, UNSPECIFIED ORGANISM 06/02/2018 FIORELLA ROQUE MD Ot J43 .9 EMPHYSEMA, UNSPECIFIED 06/02/2018 FIORELLA ROQUE MD Ot J44 .0 CHRONIC OBSTRUCTIVE PULMON DISEASE W ACU 06/02/2018 FIORELLA ROQUE MD Ot J44 .1 CHRONIC OBSTRUCTIVE PULMONARY DISEASE W 06/02/2018 FIORELLA ROQUE MD Ot L89.154 PRESSURE ULCER OF [place], STAGE 4 06/02/2018 FIORELLA ROQUE MD Ot R65.20 SEVERE SEPSIS WITHOUT SEPTIC SHOCK 06/02/2018 FIORELLA ROQUE MD Ot R91 .1 SOLITARY PULMONARY NODULE 06/02/2018 FIORELLA ROQUE MD Ot Z79.01 SHELTER (CURRENT) USE OF ANTICOAGULANT 06/02/2018 FIORELLA ROQUE MD Ot Z86.711 PERSONAL HISTORY OF PULMONARY EMBOLISM 06/02/2018 FIORELLA ROQUE MD Ot Z86.718 PERSONAL HISTORY OF OTHER VENOUS THROMBO 06/02/2018 FIORELLA ROQUE MD Ot Z87.19 PERSONAL HISTORY OF OTHER DISEASES OF TH 06/02/2018 FIORELLA ROQUE MD Ot Z93 .3 COLOSTOMY STATUS 06/02/2018 FIORELLA ROQUE MD Ot Z95 .5 PRESENCE OF CORONARY ANGIOPLASTY IMPLANT 06/02/2018 FIORELLA ROQUE MD Ot Z99 .3 DEPENDENCE ON WHEELCHAIR 06/02/2018 FIORELLA ROQUE MD Ot Z99.81 DEPENDENCE ON SUPPLEMENTAL OXYGEN 06/05/2018 BELLA KARIMI ADULT PROTECTIVE CASEWORKER Ot L89.153 PRESSURE ULCER OF SACRAL REGION, STAGE 3 06/05/2018 BELLA KARIMI ADULT PROTECTIVE CASEWORKER Ot Z96.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, BILATE 06/10/2018 BELLA KARIMI ADULT PROTECTIVE CASEWORKER Ot L89.153 PRESSURE ULCER OF SACRAL REGION, STAGE 3 06/19/2018 BELLA KARIMI ADULT PROTECTIVE CASEWORKER Ot L89.153 PRESSURE ULCER OF SACRAL REGION, STAGE 3 06/19/2018 BELLA KARIMI ADULT PROTECTIVE CASEWORKER Ot Z96.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, BILATE 06/23/2018 BELLA KARIMI ADULT PROTECTIVE CASEWORKER Ot L89.153 PRESSURE ULCER OF SACRAL REGION, STAGE 3 07/03/2018 BELLA KARIMI ADULT PROTECTIVE CASEWORKER Ot L89.153 PRESSURE ULCER OF SACRAL REGION, STAGE 3 07/03/2018 BELLA KARIMI ADULT PROTECTIVE CASEWORKER Ot L89.153 PRESSURE ULCER OF SACRAL REGION, STAGE 3 07/03/2018 BELLA KARIMI ADULT PROTECTIVE CASEWORKER Ot L89.153 PRESSURE ULCER OF SACRAL REGION, STAGE 3 07/03/2018 BELLA KARIMI ADULT PROTECTIVE CASEWORKER Ot Z53.8 PROCEDURE AND TREATMENT NOT CARRIED OUT 07/03/2018 BELLA KARIMI ADULT PROTECTIVE CASEWORKER Ot L89.153 PRESSURE ULCER OF SACRAL REGION, STAGE 3 07/03/2018 BELLA KARIMI ADULT PROTECTIVE CASEWORKER Ot L89.153 PRESSURE ULCER OF SACRAL REGION, STAGE 3 07/03/2018 BELLA KARIMI ADULT PROTECTIVE CASEWORKER Ot Z96.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, BILATE 07/03/2018 BELLA KARIMI ADULT PROTECTIVE CASEWORKER Ot L89.153 PRESSURE ULCER OF SACRAL REGION, STAGE 3 07/11/2018 SOMMER DO, STEFF L Ot G35 MULTIPLE SCLEROSIS 07/11/2018 SOMMER DO, STEFF L Ot J44.9 CHRONIC OBSTRUCTIVE PULMONARY DISEASE, U 07/11/2018 SOMMER DO, STEFF L Ot R06.2 WHEEZING 07/11/2018 SOMMER DO, STEFF L Ot Z79.0 1 SHELTER (CURRENT) USE OF ANTICOAGULANT 07/11/2018 SOMMER DO, STEFF L Ot Z79.5 1 SHELTER (CURRENT) USE OF INHALED STERO 07/11/2018 SOMMER DO, STEFF L Ot Z79.5 2 SHELTER (CURRENT) USE OF SYSTEMIC STER 07/11/2018 SOMMER DO, STEFF L Ot Z82.4 9 FAMILY HX OF ISCHEM HEART DIS AND OTH DI 07/11/2018 SOMMER DO, STEFF L Ot Z87.0 1 PERSONAL HISTORY OF PNEUMONIA (RECURRENT 07/11/2018 SOMMER DO, STEFF L Ot Z93.3 COLOSTOMY STATUS 07/11/2018 SOMMER DO, STEFF L Ot 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 07/17/2018 SOMMER DO, STEFF L Ot G35 MULTIPLE SCLEROSIS 07/17/2018 SOMMER DO, STEFF L Ot J44.9 CHRONIC OBSTRUCTIVE PULMONARY DISEASE, U 07/17/2018 SOMMER DO, STEFF L Ot R06.2 WHEEZING 07/17/2018 SOMMER DO, STEFF L Ot Z79.0 1 SHELTER (CURRENT) USE OF ANTICOAGULANT 07/17/2018 SOMMER DO, STEFF L Ot Z79.5 1 DIGITAL ASSISTANT (CURRENT) USE OF INHALED STERO 07/17/2018 SOMMER DO, STEFF L Ot Z79.5 2 DIGITAL ASSISTANT (CURRENT) USE OF SYSTEMIC STER 07/17/2018 SOMMER DO, STEFF L Ot Z82.4 9 FAMILY HX OF ISCHEM HEART DIS AND OTH DI 07/17/2018 SOMMER DO, STEFF L Ot Z87.0 1 PERSONAL HISTORY OF PNEUMONIA (RECURRENT 07/17/2018 SOMMER DO, STEFF L Ot Z93.3 COLOSTOMY STATUS 07/17/2018 SOMMER DO, STEFF L Ot 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 09/08/2018 ROZ WILKINS MD Ot A41. 1 SEPSIS DUE TO OTHER SPECIFIED STAPHYLOCO 09/08/2018 ROZ WILKINS MD Ot E83. 42 HYPOMAGNESEMIA 09/08/2018 ROZ WILKINS MD Ot F17.210 NICOTINE DEPENDENCE, CIGARETTES, UNCOMPL 09/08/2018 ROZ WILKINS MD Ot G35 MULTIPLE SCLEROSIS 09/08/2018 ROZ WILKINS MD Ot G89. 4 CHRONIC PAIN SYNDROME 09/08/2018 ROZ WILKINS MD Ot I48. 0 PAROXYSMAL ATRIAL FIBRILLATION 09/08/2018 ROZ WILKINS MD Ot J18. 1 LOBAR PNEUMONIA, UNSPECIFIED ORGANISM 09/08/2018 ROZ WILKINS MD Ot J44. 1 CHRONIC OBSTRUCTIVE PULMONARY DISEASE W 09/08/2018 ROZ WILKINS MD Ot J96. 02 ACUTE RESPIRATORY FAILURE WITH HYPERCAPN 09/08/2018 ROZ WILKINS MD Ot L89.159 PRESSURE ULCER OF SACRAL REGION, UNSPECI 09/08/2018 ROZ WILKINS MD Ot R65. 21 SEVERE SEPSIS WITH SEPTIC SHOCK 09/08/2018 ROZ WILKINS MD Ot Y95 NOSOCOMIAL CONDITION 09/08/2018 ROZ WILKINS MD Ot Z93. 3 COLOSTOMY STATUS 09/08/2018 ROZ WILKINS MD Ot Z99. 3 DEPENDENCE ON WHEELCHAIR 12/08/2018 FIORELLA ROQUE MD Ot F32 .9 MAJOR DEPRESSIVE DISORDER, SINGLE EPISOD 12/08/2018 FIORELLA ROQUE MD Ot G35 MULTIPLE SCLEROSIS 12/08/2018 FIORELLA ROQUE MD Ot I50 .9 HEART FAILURE, UNSPECIFIED 12/08/2018 FIORELLA ROQUE MD Ot J43 .9 EMPHYSEMA, UNSPECIFIED 12/08/2018 FIORELLA ROQUE MD Ot R06.89 OTHER ABNORMALITIES OF BREATHING 12/08/2018 FIORELLA ROQUE MD Ot Z79.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 12/08/2018 FIORELLA ROQUE MD Ot Z79.51 SHELTER (CURRENT) USE OF INHALED STERO 12/08/2018 FIORELLA ROQUE MD Ot Z82.49 FAMILY HX OF ISCHEM HEART DIS AND OTH DI Procedures Code Description [place] [address] ROUT INE VENIPUNCTURE TEX SOLOMON MDWALDO C 02/24/2010 01245 COMP REHEN METABOLIC PANEL JUANITO PHELAN KRISTIN C 02/24/2010 35232 COMP LETE CBC W/AUTO DIFF WBC JUANITO PHELAN [facility] C 02/24/2010 25900 CULT URE, BACTERIA, OTHER JUANITO PHELAN [facility] C 02/24/2010 99206 NUBIA I IDENTIFICATION, MOLD JUANITO PHELAN KRISTIN C 02/24/2010 72734 CULT URE TYPE, IMMUNOLOGIC JUANITO PHELAN [facility] C 02/24/2010 48158 SMEA R, GRAM STAIN JUANITO PHELAN [facility] C 02/24/2010 21058 ROUT INE VENIPUNCTURE JUANITO PHELAN [facility] 04/05/2010 43776 COMP REHEN METABOLIC PANEL JUANITO PHELAN [facility] 04/05/2010 91320 COMP LETE CBC W/AUTO DIFF WBC JUANITO PHELAN [facility] C 04/05/2010 07598 CULT URE, BACTERIA, OTHER JUANITO PHELAN [facility] C 04/05/2010 97330 UNBIA I IDENTIFICATION, MOLD JUANITO PHELAN [facility] C 04/05/2010 86244 SMEA R, GRAM STAIN JUANITO PHELAN [facility] 04/05/2010 98651 ROUT INE VENIPUNCTURE TEX SOLOMON MDWALDO C 06/01/2010 29470 COMP REHEN METABOLIC PANEL JUANITO PHELAN [facility] C 06/01/2010 35215 BL S MEAR W/DIFF WBC COUNT JUANITO PHELAN [facility] 06/01/2010 59402 COMP LETE CBC, AUTOMATED JUANITO PHELAN [facility] 06/01/2010 98597 ROUT INE VENIPUNCTURE JUANITO PHELAN [facility] 06/07/2010 56873 CHES T X-RAY JUANITO PHELAN [facility] 06/07/2010 30129 X-RA Y EXAM OF RIBEdwar SOLOMON MD [facility] C 06/07/2010 X-RA Y EXAM OF PELVIS JUANITO PHELAN, [facility] 06/07/2010 43973 COMP REHEN METABOLIC PANEL JUANITO PHELAN [facility] 06/07/2010 [address]87 [address] S MEAR W/DIFF WBC COUNT JUANITO PHELAN, [facility] 06/07/2010 51866 COMP LETE CBC, AUTOMATED JUANITO PHELAN, [facility] 06/07/2010 89123 THER /PROPH/DIAG INJ, SC/IM JUANITO PHELAN, [facility] 06/07/2010 08710 [facility]JA GENCY DEPT VISIT JUANITO PHELAN [facility] C 06/07/2010 A0425 GROU ND MILEAGE JUANITO PHELAN, [facility] 06/07/2010 A0429 BLS EMERGENCY JUANITO PHELAN, [facility] 06/07/2010 01034 OFFI CE/OUTPATIENT VISIT, MATTY AGUSTIN MD, DARA R 07/11/2010 97278 META BOLIC PANEL TOTAL CA JUANITO PHELAN [facility] 07/12/2010 44150 OFFI CE/OUTPATIENT VISIT, MATTY AGUSTIN MD, DARA R 2010 15835 X-RA Y EXAM OF HIP NIKOLE PHELAN, DARA R 09/12/2010 17740 OFFI CE/OUTPATIENT VISIT, MATTY AGUSTIN MD, DARA R 09/12/2010 84080 WITH DRAWAL OF ARTERIAL BLOOD JUANITO PHELAN, [facility] 09/25/2010 96526 INSE RT TEMP BLADDER CATH JUANITO PHELAN [facility] 09/25/[address] H EAD/BRAIN W/O DYE JUANITO PHELAN [facility] 09/25/2010 47415 CHES T X-RAY JUANITO PHELAN [facility] 09/25/2010 84548 X-RA Y EXAM OF ABDOMEN JUANITO PHELAN [facility] 09/25/2010 26723 COMP REHEN METABOLIC PANEL JUANITO PHELAN [facility] 09/25/2010 15200 ASSA Y OF SALICYLATE JUANITO PHELAN [facility] 09/25/2010 44189 URIN ALYSIS, AUTO W/SCOPE JUANITO PHELAN [facility] 09/25/2010 61502 ASSA Y OF ACETAMINOPHEN JUANITO PHELAN [facility] 09/25/2010 87363 ASSA Y OF ETHANOL JUANITO PHELAN [facility] 09/25/2010 72788 ASSA Y OF CK (CPK) JUANITO PHELAN, [facility] 09/25/2010 61699 CREAna M MORGAN, PEDRO FRACTION JUANITO PHELAN, [facility] 09/25/2010 82388 BLOO D GASES: PH, PO2 & PCO2 JUANITO PHELAN, [facility] 09/25/2010 08802 NATR IURETIC PEPTIDE JUANITO PHELAN, [facility] 09/25/2010 34446 ASSA Y OF TROPONIN, QUANT JUANITO PHELAN, [facility] 09/25/2010 18381 COMP LETE CBC W/AUTO DIFF WBC JUANITO PHELAN, [facility] 09/25/2010 99441 PROT HROMBIN TIME JUANITO PHELAN, [facility] 09/25/2010 32829 THRO MBOPLASTIN TIME, PARTIAL JUANITO PHELAN, [facility] 09/25/2010 21526 CULT URE AEROBIC IDENTIFY JUANITO PHELAN, [facility] 09/25/2010 59332 URIN E CULTURE/COLONY COUNT JUANITO PHELAN, [facility] 09/25/2010 46191 URIN E BACTERIA CULTURE JUANITO PHELAN, [facility] 09/25/2010 67686 MICR OBE SUSCEPTIBLE, DAVID JUANITO PHELAN, [facility] 09/25/2010 57941 ELEC TROCARDIOGRAM, TRACING JUANITO PHELAN, [facility] 09/25/2010 11767 THER /PROPH/DIAG INJ, IV PUSH JUANITO PHELAN, [facility] 09/25/2010 26849 TX/P RO/DX INJ NEW DRUG ADDON JUANITO PHELAN, [facility] 09/25/2010 46786 [facility] GENCY DEPT VISIT JUANITO PHELAN, [facility] C 09/25/2010 G0431 DRUG SCREEN SINGLE CLASS JUANITO PHELAN, [facility] 09/25/2010 J1644 HEPA RIN INJECTION JUANITO PHELAN, [facility] 09/25/2010 80702 ELEC TROCARDIOGRAM REPORT DWAINE PHELAN, JOANNA Summers 09/25/2010 A0425 GROU ND OLINDA SOLOMON MD, KRISTIN C 09/25/2010 A0427 ALS1 EMERGENCY JUANITO PHELAN, [facility] 09/25/2010 70143 OFFI CE/OUTPATIENT VISIT, EST JERONIMO PHELAN, ANDRES R 10/24/2010 87221 ROUT INE VENIPUNCTURE JUANITO PHELAN [facility] 11/13/2010 40307 CHES T X-RAY JUANITO PHELAN [facility] 11/13/2010 06031 COMP REHEN METABOLIC PANEL JUANITO PHELAN [facility] 11/13/2010 61734 URIN ALYSIS, AUTO W/SCOPE JUANITO PHELAN [facility] 11/13/2010 80866 ASSA Y OF CK (CPK) JUANITO PHELAN [facility] 11/13/2010 53725 PEDRO TRINH FRACTION JUANITO PHELAN [facility] 11/13/2010 68168 NATR IURETIC PEPTIDE JUANITO PHELAN [facility] C 11/13/2010 22350 ASSA Y OF TROPONIN, QUANT JUANITO PHELAN [facility] 11/13/2010 76271 COMP LETE CBC W/AUTO DIFF WBC JUANITO PHELAN [facility] C 11/13/2010 53564 URIN E CULTURE/COLONY COUNT JUANITO PHELAN [facility] 11/13/2010 28193 CULT URE TYPE, IMMUNOLOGIC JUANITO PHELAN [facility] 11/13/2010 81105 IMMU NIZATION ADMIN JUANITO PHELAN [facility] C 11/13/2010 22166 TD V ACCINE > 7, IM JUANITO PHELAN [facility] 11/13/2010 21493 ELEC TROCARDIOGRAM, TRACING JUANITO PHELAN [facility] 11/13/2010 44090 POOJA GENCY DEPT VISIT JUANITO PHELAN [facility] 11/13/2010 G0431 DRUG SCREEN SINGLE CLASS JUANITO PHELAN [facility] 11/13/2010 80960 ELEC TROCARDIOGRAM REPORT DWAINE PHELAN, JOANNA Summers 11/13/2010 60652 ROUT INE VENIPUNCTURE JUANITO PHELAN [facility] 11/23/2010 90351 COMP REHEN METABOLIC PANEL JUANITO PHELAN [facility] 11/23/2010 89966 NATR IURETIC PEPTIDE JUANITO PHELAN [facility] 11/23/2010 67390 COMP LETE CBC W/AUTO DIFF WBC JUANITO PHELAN [facility] C 11/23/2010 48668 CULT URE, BACTERIA, OTHER JUANITO PHELAN [facility] 11/29/2010 05592 CULT URE AEROBIC IDENTIFY JUANITO PHELAN [facility] 11/29/2010 15139 MICR OBE SUSCEPTIBLE, DAVID JUANITO PHELAN [facility] 11/29/2010 58969 SMEA R, GRAM STAIN JUANITO PHELAN [facility] 11/29/2010 44792 CHES T X-RAY JUANITO PHELAN [facility] 12/06/2010 67050 COMP REHEN METABOLIC PANEL JUANITO PHELAN [facility] 12/06/2010 44019 URIN ALYSIS, AUTO W/SCOPE JUANITO PHELAN [facility] 12/06/2010 10357 ASSA Y OF AMYLASE JUANITO PHELAN [facility] 12/06/2010 93671 ASSA Y OF LIPASE JUANITO PHELAN [facility] 12/06/2010 [address] S MEAR W/DIFF WBC COUNT JUANITO PHELAN [facility] 12/06/2010 71816 COMP LETE CBC, AUTOMATED JUANITO PHEALN [facility] 12/06/2010 72201 HYDR ATE IV INFUSION, ADD-ON JUANITO PHELAN [facility] 12/06/2010 01280 THER /PROPH/DIAG INJ, IV PUSH JUANITO PHELAN [facility] 12/06/2010 46030 TX/P RO/DX INJ NEW DRUG ANDRES SOLOMON MD [facility] 12/06/2010 G0378 HOSP ITAL OBSERVATION PER HR JUANITO PHELAN [facility] 12/06/2010 J2550 PROM ETHAZINE HCL INJECTION JUANITO PHELAN [facility] 12/06/2010 85264 ROUT INE VENIPUNCTURE JUANITO PHELAN [facility] 12/07/2010 99868 COMP REHEN METABOLIC PANEL JUANITO PHELAN [facility] 12/07/2010 52485 NATR IURETIC PEPTIDE JUANITO PHELAN [facility] 12/07/2010 62747 BL S MEAR W/DIFF WBC COUNT JUANITO PHELAN [facility] 12/07/2010 42230 COMP LETE CBC, ENRIQUE SOLOMON MD [facility] 12/07/2010 93137 TTE W/DOPPLER, COMPLETE JUANITO PHELAN [facility] 12/07/2010 27083 HYDR ATE IV INFUSION, ADD-ON JUANITO PHELAN [facility] 12/07/2010 42246 ROUT INE VENIPUNCTURE JUANITO PHELAN [facility] 12/08/2010 03468 META BOLIC PANEL TOTAL CA JUANITO PHELAN [facility] 12/08/2010 26822 HYDR ATE IV INFUSION, ADD-ON TEX SOLOMON MDWALDO C 12/08/2010 66416 ROUT INE VENIPUNCTURE TEX SOLOMON MDWALDO C 12/28/2010 93511 COMP REHEN METABOLIC PANEL TEX SOLOMON MDWALDO C 12/28/2010 10297 ASSA Y OF MAGNESIUM TEX SOLOMON MDWALDO C 12/28/2010 19726 COMP LETE CBC W/AUTO DIFF WBC TEX SOLOMON MDWALDO C 12/28/2010 25961 ROUT INE VENIPUNCTURE TEX SOLOMON MDWALDO C 01/26/2011 28894 COMP REHEN METABOLIC PANEL TEX SOLOMON MDWALDO C 01/26/2011 97494 COMP LETE CBC W/AUTO DIFF WBC TEX SOLOMON MDWALDO C 01/26/2011 10346 ROUT INE VENIPUNCTURE TEX SOLOMON MDWALDO C 02/05/2011 98858 COMP REHEN METABOLIC PANEL TEX SOLOMON MDWALDO C 02/05/2011 46432 URIN ALYSIS, AUTO W/SCOPE TEX SOLOMON MDWALDO C 02/05/2011 96642 NATR IURETIC PEPTIDE TEX SOLOMON MDWALDO C 02/05/2011 00628 COMP LETE CBC W/AUTO DIFF WBC KRISTIN SOLOMON MD 02/05/2011 33472 URIN E CULTURE/COLONY COUNT JUANITO PHELAN [facility] 02/05/2011 64185 THER /PROPH/DIAG INJ, IV PUSH TEX SOLOMON MDWALDO C 02/05/2011 47271 [facility] GENCY DEPT VISIT TEX SOLOMON MDWALDO [facility] 02/05/2011 G0378 HOSP ITAL OBSERVATION PER HR TEX SOLOMON MDWALDO [facility] 02/05/2011 G0431 DRUG SCREEN SINGLE CLASS TEX SOLOMON MDWALDO [facility] 02/05/2011 J0696 CEFT RIAXONE SODIUM INJECTION JUANITO PHELAN [facility] 02/05/2011 J1940 FURO SEMIDE INJ TEX SOLOMON MDWALDO C 02/05/2011 39645 CULT URE SCREEN ONLY RAMIRO SOLOMON MDO [facility] 02/06/2011 89174 TX/P RO/DX INJ 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 TEX SOLOMON MDWALDO [facility] 02/06/2011 J1940 [facility] SEM[facility] 02/06/2011 88967 ROUT INE VENIPUNCTURE JUANITO PHELAN [facility] 02/07/2011 60892 COMP REHEN METABOLIC PANEL JUANITO PHELAN [facility] 02/07/2011 51360 ROUT INE VENIPUNCTURE JUANITO PHELAN [facility] 03/21/2011 45863 CHES T X-RAY JUANITO PHELAN [facility] 03/21/2011 26009 COMP REHEN METABOLIC PANEL JUANITO PHELAN [facility] 03/21/2011 96169 URIN ALYSIS, AUTO W/SCOPE JUANITO PHELAN [facility] 03/21/2011 09042 URIN ALYSIS NONAUTO W/O SCOPE JUANITO PHELAN [facility] 03/21/2011 67934 COMP LETE CBC W/AUTO DIFF WBC JUANITO PHELAN [facility] 03/21/2011 55220 URIN E CULTURE/COLONY COUNT JUANITO PHELAN [facility] 03/21/2011 27529 URIN E BACTERIA CULTURE JUANITO PHELAN [facility] 03/21/2011 17194 CULT URE TYPE, IMMUNOLOGIC JUANITO PHELAN, [facility] 03/21/2011 04152 MICR OBE SUSCEPTIBLE, DAVID JUANITO PHELAN, [facility] 03/21/2011 81703 HYDR ATE IV INFUSION, ADD-ON JUANITO PHELAN, [facility] 03/21/2011 41880 THER /PROPH/DIAG INJ, SC/IM JUANITO PHELAN [facility] 03/21/2011 09510 THER /PROPH/DIAG INJ, IV PUSH JUANITO PHELAN [facility] 03/21/2011 47553 TX/P RO/DX INJ NEW DRUG ANDRES SOLOMON MD, [facility]STIN C 03/21/2011 44421 [facility] GENCY DEPT VISIT JUANITO PHELAN [facility] 03/21/2011 C9113 INJ PANTOPRAZOLE SODIUM, VIA JUANITO PHELAN, [facility] 03/21/2011 G0378 HOSP ITAL OBSERVATION PER HR JUANITO PHELAN [facility] 03/21/2011 G0431 DRUG SCREEN SINGLE CLASS JUANITO PHELAN [facility] 03/21/2011 J2550 PROM ETHAZINE HCL INJECTION JUANITO PHELAN [facility] 03/21/2011 A0425 GROU ND OLINDA SOLOMON MD, [facility] C 03/21/2011 A0429 BLS EMERGENCY JUANITO PHELAN, [facility] 03/21/2011 13456 ROUT INE VENIPUNCTURE JUANITO PHELAN, [facility] 03/22/2011 07134 COMP REHEN METABOLIC PANEL JUANITO PHELAN, [facility] 03/22/2011 75683 HYDR ATE IV INFUSION, ADD-ON JUANITO PHELAN, [facility] 03/22/2011 90392 THER /PROPH/DIAG INJ, SC/IM JUANITO PHELAN, [facility] 03/22/2011 22459 TX/P RO/DX INJ NEW DRUG KAE SOLOMON MD, [facility] 03/22/2011 J2550 PROM ETHAZINE HCL INJECTION JUANITO PHELAN, [facility] 03/22/2011 J3411 THIA MINE HCL 100 MG JUANITO PHELAN, [facility] 03/22/2011 30064 ROUT INE VENIPUNCTURE JUANITO PHELAN, [facility] 03/23/2011 76025 COMP REHEN METABOLIC PANEL JUANITO PHELAN, [facility] 03/23/2011 56442 HYDR ATE IV INFUSION, ADD-ON JUANITO PHELAN, [facility] 03/23/2011 43474 THER /PROPH/DIAG INJ, SC/IM JUANITO PHELAN, [facility] 03/23/2011 72378 TX/P RO/DX INJ NEW DRUG ANDRES SOLOMON MD, [facility] 03/23/2011 J2060 ATIV AN INJECTION JUANITO PHELAN, [facility] 03/23/2011 46621 OFFI CE/OUTPATIENT VISIT, EST JERONIMO PHELAN, ANDRES R 05/01/2011 23496 THER /PROPH/DIAG INJ, IV PUSH JUANITO PHELAN, [facility] 05/06/2011 09896 TX/P RO/DX INJ NEW DRUG ANDRES SOLOMON MD, [facility] 05/06/2011 63179 [facility] GENCY DEPT VISIT JUANITO PHELAN, [facility] 05/06/2011 J1885 KETO ROLAC TROMETHAMINE INJ JUANITO PHELAN, [facility] 05/06/2011 J2550 PROM ETHAZINE HCL INJECTION JUANITO PHELAN, [facility] 05/06/2011 A0425 GROU ND FREDY MADRIGAL MD 05/06/2011 A0427 ALS1 EMERGENCY FREDY HARRINGTON MD 05/06/2011 96134 [facility] GENCY DEPT VISIT BRIAN HARRINGTON MDFER Mandeep 05/06/2011 93473 ROUT INE VENIPUNCTURE JUANITO PHELAN [facility] 05/07/2011 58061 COMP REHEN METABOLIC PANEL JUANITO PHELAN [facility] 05/07/2011 52230 COMP LETE CBC W/AUTO DIFF WBC JUANITO PHELAN [facility] 05/07/2011 31762 THER /PROPH/DIAG INJ, IV PUSH JUANITO PHELAN [facility] 05/07/2011 60015 POOJA GENCY DEPT VISIT JUANITO PHELAN [facility] 05/07/2011 J1885 KETO ROLAC TROMETHAMINE INJ JUANITO PHELAN [facility] 05/07/2011 A0425 GROU ND OLINDA SOLOMON MD [facility] 05/07/2011 A0427 ALS1 EMERGENCY JUANITO PHELAN [facility] 05/07/2011 88345 [facility] GENCY DEPT VISIT JUANITO PHELAN [facility] 05/20/2011 A0425 GROU ND ESTEFANIA WHITTINGTON DO 05/20/2011 A0427 ALS1 EMERGENCY ESTEFANIA CUETO DO 05/20/2011 75746 [facility] GENCY DEPT VISIT ESTEFANIA CUETO DO 05/20/2011 80167 ROUT INE VENIPUNCTURE JUANITO PHELAN [facility] 05/21/2011 17131 INSE RT TEMP BLADDER CATH JUANITO PHELAN [facility] 05/21/[address] H EAD/BRAIN W/O ANA SOLOMON MD [facility] 05/21/2011 39298 CHES T X-RAY JUANITO PHELAN [facility] 05/21/[address] N PRAFUL SPINE W/O ANA SOLOMON MD [facility] 05/21/2011 21669 COMP REHEN METABOLIC PANEL JUANITO PHELAN [facility] 05/21/2011 32005 URIN ALYSIS, AUTO W/SCOPE JUANITO PHELAN [facility] 05/21/2011 60931 ASSA Y OF ETHANOL JUANITO PHELAN [facility] 05/21/2011 56726 ASSA Y OF CK (CPK) JUANITO PHELAN [facility] 05/21/2011 26419 PEDRO TRINH MD, [facility] 05/21/2011 24763 NATR IURETIC PEPTIDE JUANITO PHELAN [facility] 05/21/2011 76815 ASSA Y OF TROPONIN, QUANT [facility] 05/21/2011 98519 COMP LETE CBC W/AUTO DIFF WBC JUANITO PHEL[facility] C 05/21/2011 94950 ELEC TROCARDIOGRAM, TRACING J[facility]ITO [facility] 05/21/2011 85929 HYDR ATION IV INFUSION, INIT JUANITO PHELAN K[facility]STIN C 05/21/2011 36414 HYDR ATE IV INFUSION, ADD-ON J[facility]ITO [facility] 05/21/2011 G0431 DRUG SCREEN SINGLE CLASS [facility]O [facility] 05/21/2011 01761 ELEC TROCARDIOGRAM REPORT JOANNA ISIDRO MD 05/21/2011 85884 ROUT INE VENIPUNCTURE J[facility]ANITO PHEL[facility] C 05/29/2011 26617 X-RA Y EXAM OF LOWER SPINE J[facility]ANITO PHEL[facility] 05/29/2011 44260 X-RA Y EXAM OF PELVIS [facility]O [facility] 05/29/2011 36520 COMP REHEN METABOLIC PANEL TEX SOLOMON MDWALDO C 05/29/2011 11659 COMP LETE CBC W/AUTO DIFF WBC [facility]O [facility] C 05/29/2011 14773 MRI LUMBAR SPINE W/O & W/DYE J[facility]ANITO PHEL[facility] C 05/31/[address] SPINE L/S (CD) JUANITO PHELAN [facility] C 06/28/2011 40678 FLUO ROGUIDE FOR SPINE INJECT J[facility]ANITO PHEL[facility] C 06/28/2011 J1040 METH LPREDNISOLONE ACETATE JUANITO PHELAN [facility] C 06/28/2011 Q9961 HOCM 250-299MG/ML IODINE,1ML JUANITO PHELAN [facility] C 06/28/[address] SPINE L/S (CD) SHIRAZ SCHWARTZ CRNA 06/28/2011 44609 ROUT INE VENIPUNCTURE [facility] C 07/03/2011 07645 COMP REHEN METABOLIC PANEL J[facility]ANITO PHEL[facility] C 07/03/2011 29353 CHAUNCEY MIN B-12 JUANITO PHELAN [facility] C 07/03/2011 66880 ASSA Y OF BLOOD/URIC ACID J[facility]ITO PHEL[facility] C 07/03/2011 43827 COMP LETE CBC W/AUTO DIFF WBC [facility]O PHEL[facility] C 07/03/[address] SPINE L/S (CD) JUANITO PHELAN [facility] C 07/12/2011 49396 FLUO ROGUIDE FOR SPINE INJECT J[facility]ANITO PHELAN [facility] C 07/12/2011 J1040 METH LPREDNISOLONE ACETATE JUANITO PHELAN [facility] C 07/12/2011 Q9961 HOCM 250-299MG/ML IODINE,1ML [facility]O P[facility] C 07/12/[address] SPINE L/S (CD) ABBIE RINCON 07/12/[address] SPINE L/S (CD) [facility] 07/26/2011 28057 FLUO ROGUIDE FOR SPINE INJECT JUANITO PHELAN KRISTIN C 07/26/2011 J1040 METH LPREDNISOLONE ACETATE JUANITO PHELAN K[facility]IN C 07/26/2011 Q9961 HOCM 250-299MG/ML IODINE,1ML [facility]ANITO P[facility] C 07/26/[address] SPINE L/S (CD) SHIRAZ SCHWARTZ CRNA 07/26/2011 62168 ROUT INE VENIPUNCTURE [facility]O PHEL[facility] C 08/20/2011 51121 COMP REHEN METABOLIC PANEL J[facility]ANITO PHELAN [facility] C 08/20/2011 73192 COMP LETE CBC W/AUTO DIFF WBC JUANITO PHELAN [facility] C 08/20/2011 86364 META BOLIC PANEL TOTAL CA JUANITO PHELAN [facility] C 08/28/2011 78042 THER /PROPH/DIAG IV INF, INIT JUANITO PHELAN KRISTIN C 08/28/2011 J1580 GARA MYCIN GENTAMICIN INJ JUANITO PHELAN [facility]IN C 08/28/2011 31498 THER /PROPH/DIAG IV INF ANDRES SOLOMON MD KRISTIN C 08/29/2011 J1580 GARA MYCIN GENTAMICIN INJ JUANITO PHEL[facility]IN 08/29/2011 90831 ROUT INE VENIPUNCTURE [facility]ITO P[facility] 08/30/2011 63452 META BOLIC PANEL TOTAL CA JU[facility]ITO PHELAN, [facility] 08/30/2011 17228 ASSA Y OF GENTAMICIN JUANITO PHELAN, [facility] 08/30/2011 62522 THER /PROPH/DIAG IV INF ADDON JUANITO PHELAN, [facility] 08/30/2011 61953 THER /PROPH/DIAG INJ, SC/IM [facility]ITO PHELAN, [facility] 08/30/2011 J1580 GARA MYCIN GENTAMICIN INJ [facility] 08/30/2011 82805 THER /PROPH/DIAG INJ, SC/IM [facility] 08/31/2011 J1580 GARA MYCIN GENTAMICIN INJ [facility]O [facility] 08/31/2011 27004 THER /PROPH/DIAG INJ, SC/IM FREDY HARRINGTON MD 09/01/2011 [id number] GARA MYCIN GENTAMICIN INJ FREDY HARRINGTON MD 09/01/2011 01887 THER /PROPH/DIAG INJ, SC/IM [facility] 09/02/2011 J1580 GARA MYCIN GENTAMICIN INJ [facility]ITO P[facility] 09/02/2011 09970 ROUT INE VENIPUNCTURE JUANITO PHELAN, [facility] 09/03/2011 23884 COMP REHEN METABOLIC PANEL JUANITO PHELAN, [facility] 09/03/2011 43956 ASSA Y OF GENTAMICIN [facility]ITO P[facility] 09/03/2011 48749 COMP LETE CBC W/AUTO DIFF WBC [facility] 09/03/2011 55367 THER /PROPH/DIAG INJ, SC/IM [facility] 09/03/2011 J1580 GARA MYCIN GENTAMICIN INJ [facility]O P[facility] 09/03/2011 10250 THER /PROPH/DIAG INJ, SC/IM [facility]ITO PHELAN, [facility] 09/04/2011 J1580 GARA MYCIN GENTAMICIN INJ [facility]ITO P[facility] 09/04/2011 40605 REPA IR SUPERFICIAL WOUND(S) KEIKO SEVERINO 09/30/2011 22643 IMMU NIZATION ADMIN KEIKO SEVERINO 09/30/2011 90650 TD V ACCINE > 7, IM KRISTIN SOLOMON MD 09/30/2011 11922 [facility] KE[facility]KO L 09/30/2011 48442 [facility] 09/30/2011 16986 URIN E CULTURE/COLONY COUNT KRISTIN SOLOMON MD 10/10/2011 85740 URIN E BACTERIA CULTURE KRISTIN SOLOMON MD 10/10/2011 51921 MICR OBE SUSCEPTIBLE, DAVID KRISTIN SOLOMON MD 10/10/2011 16357 REPA IR SUPERFICIAL WOUND(S) KRISTIN SOLOMON MD 10/13/2011 10828 THER /PROPH/DIAG INJ, SC/IM KRISTIN SOLOMON MD 10/13/2011 71291 [facility] VISIT KRISTIN SOLOMON MD 10/13/2011 J0696 CEFT RIAXONE SODIUM INJECTION KRISTIN SOLOMON MD 10/13/2011 38809 [facility] VISIT KRISTIN SOLOMON MD 10/13/2011 93470 ROUT INE VENIPUNCTURE KRISTIN SOLOMON MD 11/08/2011 68481 CHES T X-RAY KRISTIN SOLOMON MD 11/08/2011 83039 COMP REHEN METABOLIC PANEL KRISTIN SOLOMON MD 11/08/2011 75547 ASSA Y OF CK (CPK) KRISTIN SOLOMON MD 11/08/2011 63565 CREA CATHY, MB FRACTION KRISTIN SOLOMON MD 11/08/2011 25416 ASSA Y OF MAGNESIUM TEX SOLOMON MDWALDJudy Turk 11/08/2011 71356 NATR IURETIC PEPTIDE KRISTIN SOLOMON MD 11/08/2011 [id number] ASSA Y OF TROPONIN, QUANT TEX SOLOMON MDWALDJudy Turk 11/08/2011 11435 BL S MEAR W/DIFF WBC COUNT KRISTIN SOLOMON MD 11/08/2011 22011 COMP LETE CBC, AUTOMATED KRISTIN SOLOMON MD 11/08/2011 33129 ELEC TROCARDIOGRAM, TRACING KRISTIN SOLOMON MD 11/08/2011 07607 [facility] VISIT KRISTIN SOLOMON MD 11/08/2011 A0425 GROU ND OLINDA SOLOMON MD, KRISTIN C 11/08/2011 A0427 ALS1 EMERGENCY JUANITO PHELAN, KRISTIN C 11/08/2011 24344 ELEC TROCARDIOGRAM REPORT DWAINE PHELAN JOANNA Kristopher 11/08/2011 29426 [facility] VISIT JUANITO PHELAN KRISTIN C 11/08/[address] SPINE L/S (CD) JUANITO PHELAN KRISTIN C 11/22/2011 68281 FLUO ROGUIDE FOR SPINE INJECT JUANITO PHELAN KRISTIN C 11/22/2011 J1040 METH LPREDNISOLONE ACETATE JUANITO PHELAN, KRISTIN C 11/22/2011 Q9961 HOCM 250-299MG/ML IODINE,1ML JUANITO PHELAN, KRISTIN C 11/22/[address] SPINE L/S (CD) ABBIE RINCON 11/22/2011 32627 CULT URE AEROBIC IDENTIFY JUANITO PHELAN, KRISTIN C 11/26/2011 00793 URIN E CULTURE/COLONY COUNT JUANITO PHELAN KRISTIN C 11/26/2011 47628 URIN E BACTERIA CULTURE JUANITO PHELAN, KRISTIN C 11/26/2011 36880 MICR OBE SUSCEPTIBLE, DAVID JUANITO PHELAN, KRISTIN C 11/26/2011 74702 OFFI CE/OUTPATIENT VISIT, MATTY DECKER MD, LAANTONIA R 11/27/2011 64140 ROUT INE VENIPUNCTURE JUANITO PHELAN KRISTIN C 12/03/2011 48429 COMP REHEN METABOLIC PANEL JUANITO PHELAN KRISTIN C 12/03/2011 98735 COMP LETE CBC W/AUTO DIFF WBC JUANITO PHELAN KRISTIN C 12/03/2011 33276 ROUT INE VENIPUNCTURE JUANITO PHLEAN KRISTIN C 12/07/2011 17587 COMP REHEN METABOLIC PANEL JUANITO PHELAN KRISTIN C 12/07/2011 42340 COMP LETE CBC W/AUTO DIFF WBC JUANITO PHELAN, KRISTIN C 12/07/2011 09477 HT M USCLE IMAGE SPECT, ADONIS SOLOMON MD, KRISTIN C 12/14/2011 A9500 TC99 M LUIS SOLOMON MD, KRISTIN C 12/14/2011 J2785 REGA DENOSON INJECTION TEX SOLOMON MDWALDO Burke 12/14/2011 J7050 NS S OLUTION 250 CC INFUSION TEX SOLOMON MDWALDO Burke 12/14/2011 47524 CARD IOVASCULAR STRESS TEST [facility] 12/14/2011 03089 ROUT INE VENIPUNCTURE [facility] 01/01/2012 40510 COMP REHEN METABOLIC PANEL [facility] 01/01/2012 29513 COMP LETE CBC W/AUTO DIFF WBC [facility] 01/01/2012 95091 ROUT INE VENIPUNCTURE [facility] 01/16/2012 86872 CHES T X-RAY [facility] 01/16/2012 35721 COMP REHEN METABOLIC PANEL [facility] 01/16/2012 02942 ASSA Y OF CK (CPK) JUANITO PHELAN [facility] 01/16/2012 57184 PEDRO TRINH FRACTION JUANITO PHELAN [facility] 01/16/2012 25907 NATR IURETIC PEPTIDE [facility] 01/16/2012 58973 ASSA Y OF TROPONIN, QUANT [facility] 01/16/2012 37380 COMP LETE CBC W/AUTO DIFF WBC [facility] 01/16/2012 48960 CULT URE, BACTERIA, OTHER [facility] 01/16/2012 56725 CULT URE SCREEN ONLY [facility] 01/16/2012 30491 CULT URE TYPE, IMMUNOLOGIC JUANITO PHELAN KRISTIN C 01/16/2012 45301 MICR OBE SUSCEPTIBLE, DAVID JUANITO PHELAN KRISTIN C 01/16/2012 66812 SMEA R, GRAM STAIN JUANITO PHELAN KRISTIN C 01/16/2012 07993 ELEC TROCARDIOGRAM, TRACING JUANITO PHELAN KRISTIN C 01/16/2012 77187 EVAL UATE PT USE OF INHALER JUANITO PHELAN KRISTIN 01/16/2012 75153 HYDR ATE IV INFUSION, ADD-ON JUANITO PHELAN KRISTIN Burke 01/16/2012 80509 THER /PROPH/DIAG INJ, IV PUSH [facility] 01/16/2012 69407 [facility] VISIT KRISTIN SOLOMON MD 01/16/2012 G0378 HOSP ITAL OBSERVATION PER HR KRISTIN SOLOMON MD 01/16/2012 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 KRISTIN SOLOMON MD 01/16/2012 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 KRISTIN SOLOMON MD 01/16/2012 J7611 ALBU TEROL NON-COMP CON TEX SOLOMON MDWALDO Burke 01/16/2012 24197 ELEC TROCARDIOGRAM REPORT DWAINE PHELAN, JOANNA L 01/16/2012 A0425 GROU ND FREDY MADRIGAL MD 01/16/2012 A0427 ALS1 EMERGENCY FREDY HARRINGTON MD 01/16/2012 79329 [facility] VISIT FREDY HARRINGTON MD 01/16/2012 74413 ROUT INE VENIPUNCTURE KRISTIN SOLOMON MD 01/17/2012 40210 COMP REHEN METABOLIC PANEL KRISTIN SOLOMON MD 01/17/2012 93089 ASSA Y OF CK (CPK) KRISTIN SOLOMON MD 01/17/2012 68218 CREA CATHY, MB FRACTION KRISTIN SOLOMON MD 01/17/2012 69587 NATR IURETIC PEPTIDE KRISTIN SOLOMON MD 01/17/2012 49926 ASSA Y OF TROPONIN, QUANT KRISTIN SOLOMON MD 01/17/2012 10699 COMP LETE CBC W/AUTO DIFF WBC KRISTIN SOLOMON MD 01/17/2012 55219 ELEC TROCARDIOGRAM, TRACING KRISTIN SOLOMON MD 01/17/2012 52646 AIRW AY INHALATION TREATMENT KRISTIN SOLOMON MD 01/17/2012 47386 EVAL UATE PT USE OF INHALER KRISTIN SOLOMON MD 01/17/2012 44374 HYDR ATE IV INFUSION, ADD-ON KRISTIN SOLOMON MD 01/17/2012 65874 TX/P RO/DX INJ 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 KRISTIN SOLOMON MD 01/17/2012 A9270 Non- covered item or service KRISTIN SOLOMON MD 01/17/2012 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 KRISTIN SOLOMON MD 01/17/2012 J7611 ALBU TEROL NON-COMP CON TEX SOLOMON MDWALDJudy Turk 01/17/2012 87865 ELEC TROCARDIOGRAM REPORT JOANNA ISIDRO MD 01/17/2012 30381 ROUT INE VENIPUNCTURE KRISTIN SOLOMON MD 01/18/2012 36028 COMP REHEN METABOLIC PANEL KRISTIN SOLOMON MD 01/18/2012 30751 COMP LETE CBC W/AUTO DIFF WBC KRISTIN SOLOMON MD 01/18/2012 80071 EVAL UATE PT USE OF INHALER KRISTIN SOLOMON MD 01/18/2012 A9270 Non- covered item or service TEX SOLOMON MDWALDJudy Turk 01/18/2012 G0008 INFL UENZA VIRUS VACCINE TEX SOLOMON MDWALDJudy Turk 01/18/2012 Q2037 FLUV IRIN VACC, 3 YRS & >, IM KRISTIN SOLOMON MD 01/18/2012 00427 ROUT INE VENIPUNCTURE KRISTIN SOLOMON MD 01/26/2012 98596 INSE RT TEMP BLADDER CATH KRISTIN SOLOMON MD 01/26/2012 45994 COMP REHEN METABOLIC PANEL KRISTIN SOLOMON MD 01/26/2012 22506 URIN ALYSIS, AUTO W/SCOPE KRISTIN SOLOMON MD 01/26/2012 67374 BL S MEAR W/DIFF WBC COUNT KRISTIN SOLOMON MD 01/26/2012 86208 COMP LETE CBC, AUTOMATED KRISTIN SOLOMON MD 01/26/2012 68466 [facility] VISIT KRISTIN SOLOMON MD 01/26/2012 G0431 DRUG SCREEN SINGLE CLASS KRISTIN SOLOMON MD 01/26/2012 A0425 GROU ND KRISTIN POMPA MD 01/26/2012 A0429 BLS EMERGENCY TEX SOLOMON MDWALDJudy Turk 01/26/2012 26026 [facility] VISIT KRISTIN SOLOMON MD 01/26/2012 06391 ELEC TROCARDIOGRAM REPORT JOANNA ISIDRO MD 01/27/[address] H EAD/BRAIN W/O DYE KRISTIN SOLOMON MD 01/27/2012 66618 CHES T X-RAY JUANITO PHELAN, KRISTIN C 01/27/2012 32427 X-RA Y EXAM OF PELVIS JUANITO PHELAN, KRISTIN C 01/27/2012 46642 X-RA Y EXAM OF HIP JUANITO PHELAN, KRISTIN C 01/27/2012 45.73 RIGH T HEMICOLECTOMY Hugo Estes MD 01/29/2012 45.73 RIGH T HEMICOLECTOMY Hugo Estes MD 01/30/2012 96.72 CONT MECH VENT->95 HOURS Hugo Estes MD 02/07/2012 43.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 ROSTOMY NEC Hugo Estes MD 02/09/2012 45.73 RIGH T HEMICOLECTOMY Hugo Estes MD 02/09/2012 46.20 ILEO STOMY NOS Hugo Estes MD 02/09/2012 45.14 CLSD (ENDO) SM INTEST BX Hugo Estes MD 02/12/2012 70390 ROUT INE VENIPUNCTURE JUANITO PHELAN, KRISTIN C 04/07/2012 23489 COMP REHEN METABOLIC PANEL JUANITO PHELAN KRISTIN C 04/07/2012 76757 BL S MEAR W/DIFF WBC COUNT JUANITO PHELAN KRISTIN C 04/07/2012 94705 COMP LETE CBC, AUTOMATED JUANITO PHELAN, KRISTIN C 04/07/2012 90286 [facility] G[facility] DEPT VISIT JUANITO PHELAN KRISTIN C 04/07/2012 A0425 GROU ND MILEALIEN SOLOMON MD, KRISTIN C 04/07/2012 A0429 BLS EMERGENCY JUANITO PHELAN, KRISTIN C 04/07/2012 89638 [facility] DEPT VISIT JUANITO PHELAN KRISTIN C 04/07/2012 42537 COMP REHEN METABOLIC PANEL JUANITO PHELAN, KRISTIN C 04/21/2012 35752 COMP LETE CBC W/AUTO DIFF WBC JUANITO PHELAN, KRISTIN C 04/21/2012 96769 URIN ALYSIS, AUTO W/SCOPE JUANITO PHELAN KRISTIN C 04/25/2012 43091 COMP REHEN METABOLIC PANEL JUANITO PHELAN KRISTIN C 04/28/2012 96008 COMP LETE CBC W/AUTO DIFF WBC JUANITO PHELAN KRISTIN C 04/28/2012 60041 COMP REHEN METABOLIC PANEL JUANITO PHELAN KRISTIN C 05/05/2012 70475 COMP LETE CBC W/AUTO DIFF WBC JUANITO PHELAN KRISTIN C 05/05/2012 18374 EXTR EMITY STUDY JUANITO PHELAN KRISTIN C 05/12/2012 57676 COMP REHEN METABOLIC PANEL JUANITO PHELAN KRISTIN C 05/20/2012 24232 COMP LETE CBC W/AUTO DIFF WBC JUANITO PHELAN KRISTIN C 05/20/2012 77748 PROT HROMBIN TIME JUANITO PHELAN KRISTIN C 05/20/2012 23912 ROUT INE VENIPUNCTURE JUANITO PHELAN KRISTIN C 05/29/2012 27409 COMP REHEN METABOLIC PANEL JUANITO PHELAN KRISTIN C 05/29/2012 64971 COMP LETE CBC W/AUTO DIFF WBC JUANITO PHELAN KRISTIN C 05/29/2012 99774 PROT HROMBIN TIME JUANITO PHELAN KRISTIN C 05/29/2012 82249 PROT HROMBIN TIME JUANITO PHELAN KRISTIN C 06/09/2012 70566 ROUT INE VENIPUNCTURE JUANITO PHELAN KRISTIN C 06/10/2012 74703 META BOLIC PANEL TOTAL CA JUANITO PHELAN KRISTIN C 06/10/2012 57640 ROUT INE VENIPUNCTURE JUANITO PHELAN KRISTIN C 07/15/2012 91846 COMP REHEN METABOLIC PANEL JUANITO PHELAN KRISTIN C 07/15/2012 71770 COMP LETE CBC W/AUTO DIFF WBC JUANITO PHELAN KRISTIN C 07/15/2012 29763 PROT HROMBIN TIME JUANITO PHELAN KRISTIN C 07/15/2012 34275 PROT HROMBIN TIME JUANITO PHELAN KRISTIN C 07/25/2012 34851 ROUT INE VENIPUNCTURE JUANITO PHELAN KRISTIN C 07/29/2012 61637 COMP REHEN METABOLIC PANEL JUANITO PHELAN KRISTIN C 07/29/2012 04490 COMP LETE CBC W/AUTO DIFF WBC JUANITO PHELAN KRISTIN C 07/29/2012 78567 PROT HROMBIN TIME JUANITO PHELAN KRISTIN C 07/29/2012 A0425 GROU ND OLINDA HARRINGTON MD, FREDY Kaufman 07/30/2012 A0429 BLS EMERGENCY FREDY HARRINGTON MD 07/30/2012 73983 [facility] DEPT VISIT FREYD HARRINGTON MD 07/30/2012 01036 [facility] DEPT VISIT JUANITO PHELAN KRISTIN C 07/30/2012 53661 PROT HROMBIN TIME JUANITO PHELAN KRISTIN C 08/06/2012 35729 PROT HROMBIN TIME JUANITO PHELAN KRISTIN C 08/26/2012 55337 ROUT INE VENIPUNCTURE JUANITO PHELAN KRISTIN C 09/17/2012 96673 COMP REHEN METABOLIC PANEL JUANITO PHELAN KRISTIN C 09/17/2012 05086 ASSA Y OF MAGNESIUM JUANITO PHELAN KRISTIN C 09/17/2012 17206 COMP LETE CBC W/AUTO DIFF WBC JUANITO PHELAN KRISTIN C 09/17/2012 65939 PROT HROMBIN TIME JUANITO PHELAN KRISTIN C 09/17/2012 58781 ASSA Y OF MAGNESIUM JUANITO PHELAN KRISTIN C 09/24/2012 50625 ROUT INE VENIPUNCTURE JUANITO PHELAN KRISTIN C 10/08/2012 53681 COMP REHEN METABOLIC PANEL JUANITO PHELAN KRISTIN C 10/08/2012 61902 ASSA Y OF MAGNESIUM JUANITO PHELAN KRISTIN C 10/08/2012 80904 COMP LETE CBC W/AUTO DIFF WBC JUANITO PHELAN KRISTIN C 10/08/2012 77458 ROUT INE VENIPUNCTURE JUANITO PHELAN KRISTIN C 10/29/2012 74429 COMP REHEN METABOLIC PANEL JUANITO PHELAN KRISTIN C 10/29/2012 03024 ASSA Y OF MAGNESIUM JUANITO PHELAN KRISTIN C 10/29/2012 01987 ASSA Y THYROID STIM HORMONE JUANITO PHELAN KRISTIN C 10/29/2012 04895 COMP LETE CBC W/AUTO DIFF WBC JUANITO PHELAN KRISTIN C 10/29/2012 91342 PROT HROMBIN TIME JUANITO PHELAN KRISTIN C 10/29/2012 94888 COMP REHEN METABOLIC PANEL JUANITO PHELAN KRISTIN C 11/07/2012 93538 PROT HROMBIN TIME JUANITO PHELAN KRISTIN C 11/07/2012 59894 PROT HROMBIN TIME JUANITO PHELAN KRISTIN C 12/03/2012 62092 PROT HROMBIN TIME JUANITO PHELAN [facility] 12/30/2012 96517 CULT URE, BACTERIA, OTHER JUANITO PHELAN [facility] 01/14/2013 37295 CULT URE AEROBIC IDENTIFY JUANITO PHELAN [facility] 01/14/2013 38104 MICR OBE SUSCEPTIBLE, DAVID SOLOMON MD [facility] 01/14/2013 21263 SMEA R, GRAM STAIN JUANITO PHELAN [facility] 01/14/2013 47433 ASSA Y OF CREATININE JUANITO PHELAN [facility] 01/23/2013 12289 ASSA Y OF UREA NITROGEN JUANITO PHELAN [facility] 01/23/2013 84698 COMP REHEN METABOLIC PANEL JUANITO PHELAN [facility] 01/26/2013 02016 COMP LETE CBC W/AUTO DIFF WBC JUANITO PHELNA [facility] 01/26/2013 25290 PROT HROMBIN TIME JUANITO PHELAN [facility] 01/26/2013 72270 ASSA Y OF CREATININE JUANITO PHELAN [facility] 01/29/2013 57019 ASSA Y OF UREA NITROGEN JUANITO PHELAN [facility] 01/29/2013 02807 ASSA Y OF CREATININE JUANITO PHELAN [facility] 02/02/2013 17391 ASSA Y OF UREA NITROGEN JUANITO PHELAN [facility] 02/02/2013 32681 ASSA Y OF CREATININE JUANITO PHELAN [facility] 02/06/2013 33106 ASSA Y OF UREA NITROGEN JUANITO PHELAN [facility] 02/06/2013 35872 COMP REHEN METABOLIC PANEL JUANITO PHELAN [facility] 02/10/2013 44156 CULT URE, BACTERIA, OTHER JUANITO PHELAN [facility] 02/11/2013 92825 CULT URE AEROBIC IDENTIFY JUANITO PHELAN [facility] 02/11/2013 36970 MICR OBE SUSCEPTIBLE, DAVID JUANITO PHELAN [facility] 02/11/2013 34642 SMEA R, GRAM STAIN JUANITO PHELAN [facility] 02/11/2013 79503 ASSA Y OF CREATININE JUANITO PHELAN [facility] 02/12/2013 43783 ASSA Y OF UREA NITROGEN JUANITO PHELAN [facility] 02/12/2013 20485 ASSA Y OF CREATININE JUANITO PHELAN [facility] 02/16/2013 00773 [facility] 64475 ASSA Y OF CREATININE JUANITO PHELAN [facility] 02/19/2013 53188 ASSA Y OF UREA NITROGEN JUANITO PHELAN [facility] 02/19/2013 90144 [facility]2013 21336 PROT HROMBIN TIME JUANITO PHELAN [facility] 02/20/2013 04640 [facility]BIN [facility]/21[facility]2013 16837 [facility]/22[facility]2013 99130 [facility]/23/2013 52629 ASSA Y OF UREA NITROGEN JUANITO PHLEAN [facility] 02/23/2013 79915 [facility]OT [facility]BIN [facility]/2013 21981 CULT URE, BACTERIA, OTHER JUANITO PHELAN [facility] 02/25/2013 06175 CULT URE AEROBIC IDENTIFY JUANITO PHELAN [facility] 02/25/2013 80203 MICR OBE SUSCEPTIBLE, DAVID JUANITO PHELAN [facility] 02/25/2013 24908 SMEA R, GRAM STAIN JUANITO PHELAN [facility] 02/25/2013 14249 PROT HROMBIN TIME JUANITO PHELAN [facility] 02/27/2013 79893 ASSA Y OF CREATININE JUANITO PHELAN [facility] 03/02/2013 24045 ASSA Y OF UREA NITROGEN JUANITO PHELAN [facility] 03/02/2013 29157 PROT HROMBIN TIME JUANITO PHELAN [facility] 03/10/2013 90385 PROT HROMBIN TIME JUANITO PHELAN [facility] 03/31/2013 51505 CULT URE, BACTERIA, OTHER JUANITO PHELAN [facility] 04/27/2013 37250 CULT URE AEROBIC IDENTIFY JUANITO PHELAN [facility] 04/27/2013 14239 MICR OBE SUSCEPTIBLE, DAVID JUANITO PHELAN [facility] 04/27/2013 15969 SMEA R, GRAM STAIN JUANITO PHELAN [facility] 04/27/2013 22574 ROUT INE VENIPUNCTURE JUANITO PHELAN [facility] 05/05/2013 46122 PROT HROMBIN TIME JUANITO PHELAN [facility] 05/05/2013 63426 ROUT INE VENIPUNCTURE JUANITO PHELAN [facility] 05/25/2013 81635 COMP REHEN METABOLIC PANEL JUANITO PHELAN [facility] 05/25/2013 29109 ASSA Y OF MAGNESIUM JUANITO PHELAN [facility] 05/25/2013 54368 COMP LETE CBC W/AUTO DIFF WBC JUANITO PHELAN [facility] 05/25/2013 73526 PROT HROMBIN TIME JUANITO PHELAN [facility] 05/25/2013 47965 PROT HROMBIN TIME JUANITO PHELAN [facility] 06/02/2013 31734 COMP REHEN METABOLIC PANEL JUANITO PHELAN [facility] 06/09/2013 25033 COMP LETE CBC W/AUTO DIFF WBC JUANITO PHELAN [facility] 06/09/2013 05362 PROT HROMBIN TIME JUANITO PHELAN [facility] 06/09/2013 72422 ROUT INE VENIPUNCTURE JUANITO PHELAN [facility] 07/02/2013 76745 COMP REHEN METABOLIC PANEL JUANITO PHELAN [facility] 07/02/2013 67896 NATR IURETIC PEPTIDE JUANITO PHELAN [facility] 07/02/2013 57888 COMP LETE CBC W/AUTO DIFF WBC JUANITO PHELAN [facility] 07/02/2013 87434 PROT HROMBIN TIME JUANITO PHELAN [facility] 07/02/2013 55489 ROUT INE VENIPUNCTURE JUANITO PHELAN [facility] 07/22/2013 74857 COMP REHEN METABOLIC PANEL JUANITO PHELAN [facility] 07/22/2013 12922 COMP LETE CBC W/AUTO DIFF WBC JUANITO PHELAN [facility] 07/22/2013 51016 PROT HROMBIN TIME JUANITO PHELAN [facility] 07/22/2013 32900 ROUT INE VENIPUNCTURE JUANITO PHELAN [facility] 10/07/2013 74532 COMP REHEN METABOLIC PANEL JUANITO PHELAN [facility] 10/07/2013 72399 COMP LETE CBC W/AUTO DIFF WBC JUANITO PHELAN [facility] 10/07/2013 82809 COMP REHEN METABOLIC PANEL TEX SOLOMON MD[facility] Burke 10/19/2013 72779 URIN ALYSIS, AUTO W/SCOPE TEX SOLOMON MDWALDO C 10/19/2013 42198 ASSA Y OF AMYLASE JUANITO PHELAN [facility] 10/19/2013 22857 ASSA Y OF LIPASE JUANITO PHELAN [facility] 10/19/2013 57851 COMP LETE CBC W/AUTO DIFF WBC TEX SOLOMON MDWALDO C 10/19/2013 30716 SHAWANDA COBACTER PYLORI JUANITO PHELAN [facility] 10/19/2013 03540 CULT URE AEROBIC IDENTIFY JUANITO PHELAN [facility] 10/19/2013 07287 URIN E CULTURE/COLONY COUNT TEX SOLOMON MDWALDO C 10/19/2013 65554 MICR OBE SUSCEPTIBLE, DAVID JUANITO PHELAN [facility] 10/19/2013 00406 THER /PROPH/DIAG INJ, IV PUSH [facility] 10/19/2013 55737 TX/P RO/DX INJ NEW DRUG ADDTEX [facility] 10/19/2013 43671 [facility] VISIT TEX SOLOMON MDWALDO Burke 10/19/2013 A9270 NON- COVERED ITEM OR SERVICE FREDY HARRINGTON MD 10/19/2013 G0434 DRUG SCREEN MULTI DRUG CLASS TEX SOLOMON MDW[facility] 10/19/2013 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 FREDY HARRINGTON MD 10/19/2013 J2550 PROM ETHAZINE HCL INJECTION FREDY HARRINGTON MD 10/19/2013 J7030 INFU NEO, NS, 1000 CC FREDY HARRINGTON MD 10/19/2013 A0425 GROU ND FREDY MADRIGAL MD 10/19/2013 A0427 ALS1 EMERGENCY FREDY HARRINGTON MD 10/19/2013 70303 [facility] VISIT FREDY HARRINGTON MD 10/19/2013 09469 X-RA Y EXAM OF FOOT TEX SOLOMON MDWALDO Burke 12/22/2013 66382 ROUT INE VENIPUNCTURE TEX SOLOMON MD[facility] 02/25/2014 25514 COMP REHEN METABOLIC PANEL TEX SOLOMON MDW[facility] 02/25/2014 84865 COMP LETE CBC W/AUTO DIFF WBC JUANITO PHELAN [facility] 02/25/2014 00294 CHYL MD PNEUM, DNA, AMP PROBE JUANITO PHELAN, KRISTIN C 02/25/2014 25415 M.PN EUMON, DNA, AMP PROBE JUANITO PHELAN [facility] C 02/25/2014 45205 RESP VIRUS 12-25 TARGETS JUANITO PHELAN KRISTIN C 02/25/[address] AGENT NOS, DNA, AMP JUANITO PHELAN KRISTIN C 02/25/2014 28664 ROUT INE VENIPUNCTURE JUANITO PHELAN [facility] 09/09/2014 46111 CHES T X-RAY JUANITO PHELAN [facility]RI[facility] C 09/09/2014 37244 COMP REHEN METABOLIC PANEL JUANITO PHELAN [facility] 09/09/2014 30322 COMP LETE CBC W/AUTO DIFF WBC JUANITO PHELAN [facility] 09/09/2014 53574 MYCO PLASMA ANTIBODY JUANITO PHELAN [facility] C 09/09/2014 92898 ELEC TROCARDIOGRAM TRACING JUANITO PHELAN [facility] 11/16/2014 65081 X-RA Y EXAM OF ABDOMEN JUANITO PHELAN [facility] 02/11/2015 60045 ELEC TROCARDIOGRAM REPORT DWAINE PHELAN, JOANNA Summers 07/07/2015 75032 ALFREDO L FUNCTION PANEL JUAN MCCABE MD, GRACE Viramontes 02/23/2016 81962 ASSA Y OF FREE THYROXINE GRACE MARTINEZ JR, MD 02/23/2016 G0103 PSA SCREENING JUAN MCCABE MD, GRACE Viramontes 02/23/2016 02997 URIN ALYSIS AUTO W/SCOPE GRACE MARTINEZ JR, MD 02/28/2016 76327 MICR OALBUMIN SEMIQUANT JUAN MCCABE MD, GRACE Viramontes 02/28/2016 62549 ASSA Y OF URINE CREATININE JUAN MCCABE MD, GRACE Viramontes 02/28/2016 [id number] IN SERTION OF ENDOTRACHEAL AIRWAY INTO TR 09/03/2018 [id number] RE SPIRATORY VENTILATION, 24- 96 CONSECUTI 09/03/2018 Results Test Result Range MRSA Nasal Screen - 04/07/12 17:17 MRSA Nasal Screen SMR Wound Culture - 04/08/12 13:21 Wound Culture SMR Wound Culture - 04/08/12 13:21 Wound Culture SMR COMPLETE BLOOD COUNT - 04/10/12 06:26 Platelet 397 10^3u 142-424 MPV 9.4 FL 9.4-12.4 Jenkins # 1.00 10^3u 0.0-1.0 RBC 3.27 10^6u 4.04-6.13 Jenkins % 7.4 % 0-12 RDW 15.7 % 11.6-14.8 Neut # 11.21 10^3u 2.0-6.9 Neut % 83.2 % 37-80 WBC 13.47 10^3u 4.60-10.20 MCV 89.9 FL 80.0-97.0 Baso # 0.04 10^3u 0.0-0.1 Baso % 0.3 % 0-2 Eos # 0.21 10^3u 0-7 Eos % 1.6 % 0.0-0.7 Lymph % 7.5 % 10-50 MCHC 31.6 G/DL 31.8-35.4 MCH 28.4 PG 27.0-31.2 Lymph # 1.01 10^3u 0.6-3.4 HGB 9.3 G/DL 12.2-18.1 HCT 29.4 % 37.7-53.7 CMP - 04/10/12 06:26 Osmo Calculated 268 MOSM 261-280 Sodium 137 MMOLL 137-145 T. Protein 5.7 G/DL 6.3-8.2 Potassium 3.7 MMOLL 3.6-5.0 T Bili 0.2 MG/DL 0.2-1.3 Calcium 8.9 MG/DL 8.4-10.2 BUN 24 MG/DL 7-21 Chloride 101 MMOLL 98-107 AST 27 U/L 15-46 ALT 51 U/L 7-56 Albumin 2.7 G/DL 3.5-5.0 A/G Ratio 0.9 RATIO 1.2-2.2 Bun/Creat 29.1 RATIO 7-25 Alk Phos 562 U/L 38-126 CO2 27 MMOLL 22-30 Glucose 93 MG/DL 65-110 Globulin 3.0 2.4-3.5 Creatinine 0.8 MG/DL 0.7-1.5 BNP - 04/10/12 06:26 BNP 77.9 PG/ML <= 100 Tobramycin Trough - 04/12/12 19:30 Tobramycin Trough 1.1 mg/L 1.0-2.0 Tobramycin Peak - 04/12/12 23:00 Tobramycin Peak 3.8 mg/L 5.0-10.0 CMP - 04/14/12 06:20 Osmo Calculated 272 MOSM 261-280 Sodium 141 MMOLL 137-145 T. Protein 5.3 G/DL 6.3-8.2 Potassium 3.9 MMOLL 3.6-5.0 T Bili 0.1 MG/DL 0.2-1.3 Calcium 8.3 MG/DL 8.4-10.2 BUN 13 MG/DL 7-21 Chloride 109 MMOLL 98-107 AST 20 U/L 15-46 ALT 37 U/L 7-56 Albumin 2.4 G/DL 3.5-5.0 A/G Ratio 0.8 RATIO 1.2-2.2 Bun/Creat 22.4 RATIO 7-25 Alk Phos 219 U/L 38-126 CO2 23 MMOLL 22-30 Glucose 106 MG/DL 65-110 Globulin 3.0 2.4-3.5 Creatinine 0.6 MG/DL 0.7-1.5 COMPLETE BLOOD COUNT - 04/14/12 06:20 Platelet 353 10^3u 142-424 MPV 9.2 FL 9.4-12.4 Jenkins 8.0 RBC 3.18 10^6u 4.04-6.13 RDW 15.8 % 11.6-14.8 Seg 72.0 WBC 12.23 10^3u 4.60-10.20 Bands 3.0 MCV 91.5 FL 80.0-97.0 Eos 5.0 MCHC 30.9 G/DL 31.8-35.4 MCH 28.3 PG 27.0-31.2 Lymph 12.0 HGB 9.0 G/DL 12.2-18.1 HCT 29.1 % 37.7-53.7 COMPLETE BLOOD COUNT - 05/12/12 15:21 Platelet 356 10^3u 142-424 MPV 9.6 FL 9.4-12.4 Jenkins # 0.57 10^3u 0.0-1.0 RBC 4.28 10^6u 4.04-6.13 Jenkins % 6.1 % 0-12 RDW 16.3 % 11.6-14.8 Neut # 6.69 10^3u 2.0-6.9 Neut % 72.2 % 37-80 WBC 9.28 10^3u 4.60-10.20 MCV 86.7 FL 80.0-97.0 Baso # 0.05 10^3u 0.0-0.1 Baso % 0.5 % 0-2 Eos # 0.31 10^3u 0-7 Eos % 3.3 % 0.0-0.7 Lymph % 17.9 % 10-50 MCHC 32.3 G/DL 31.8-35.4 MCH 28.0 PG 27.0-31.2 Lymph # 1.66 10^3u 0.6-3.4 HGB 12.0 G/DL 12.2-18.1 HCT 37.1 % 37.7-53.7 CMP - 05/12/12 15:21 Osmo Calculated 272 MOSM 261-280 Sodium 140 MMOLL 137-145 T. Protein 6.9 G/DL 6.3-8.2 Potassium 4.2 MMOLL 3.6-5.0 T Bili 0.5 MG/DL 0.2-1.3 Calcium 9.5 MG/DL 8.4-10.2 BUN 19 MG/DL 7-21 Chloride 103 MMOLL 98-107 AST 22 U/L 15-46 ALT 29 U/L 7-56 Albumin 3.6 G/DL 3.5-5.0 A/G Ratio 1.1 RATIO 1.2-2.2 Bun/Creat 22.1 RATIO 7-25 Alk Phos 95 U/L 38-126 CO2 23 MMOLL 22-30 Glucose 94 MG/DL 65-110 Globulin 3.3 2.4-3.5 Creatinine 0.9 MG/DL 0.7-1.5 Protime - 05/12/12 15:21 INR 1.1 Protime 11.9 SEC 9.6-11.9 MRSA Nasal Screen - 05/12/12 16:12 MRSA Nasal Screen SMR Protime - 05/13/12 15:42 INR 1.4 Protime 14.8 SEC 9.6-11.9 Protime - 05/14/12 06:32 INR 2.2 Protime 23.3 SEC 9.6-11.9 COMPLETE BLOOD COUNT - 05/20/12 07:53 Platelet 526 10^3u 142-424 MPV 10.3 FL 9.4-12.4 Jenkins # 0.76 10^3u 0.0-1.0 RBC 4.55 10^6u 4.04-6.13 Jenkins % 7.4 % 0-12 RDW 16.7 % 11.6-14.8 Neut # 6.98 10^3u 2.0-6.9 Neut % 67.8 % 37-80 WBC 10.29 10^3u 4.60-10.20 MCV 87.0 FL 80.0-97.0 Baso # 0.03 10^3u 0.0-0.1 Baso % 0.3 % 0-2 Eos # 0.26 10^3u 0-7 Eos % 2.5 % 0.0-0.7 Lymph % 22.0 % 10-50 MCHC 32.6 G/DL 31.8-35.4 MCH 28.4 PG 27.0-31.2 Lymph # 2.26 10^3u 0.6-3.4 HGB 12.9 G/DL 12.2-18.1 HCT 39.6 % 37.7-53.7 CMP - 05/20/12 07:53 Osmo Calculated 274 MOSM 261-280 Sodium 140 MMOLL 137-145 T. Protein 7.6 G/DL 6.3-8.2 Potassium 3.7 MMOLL 3.6-5.0 T Bili 0.4 MG/DL 0.2-1.3 Calcium 9.2 MG/DL 8.4-10.2 BUN 20 MG/DL 7-21 Chloride 102 MMOLL 98-107 AST 40 U/L 15-46 ALT 30 U/L 7-56 Albumin 4.1 G/DL 3.5-5.0 A/G Ratio 1.1 RATIO 1.2-2.2 Bun/Creat 21.0 RATIO 7-25 Alk Phos 130 U/L 38-126 CO2 22 MMOLL 22-30 Glucose 101 MG/DL 65-110 Globulin 3.5 2.4-3.5 Creatinine 1.0 MG/DL 0.7-1.5 Protime - 05/20/12 07:53 INR 4.7 Protime 48.7 SEC 9.6-11.9 COMPLETE BLOOD COUNT - 05/29/12 11:57 Platelet 423 10^3u 142-424 MPV 9.6 FL 9.4-12.4 Jenkins # 0.80 10^3u 0.0-1.0 RBC 4.04 10^6u 4.04-6.13 Jenkins % 7.6 % 0-12 RDW 17.2 % 11.6-14.8 Neut # 8.27 10^3u 2.0-6.9 Neut % 78.3 % 37-80 WBC 10.55 10^3u 4.60-10.20 MCV 86.9 FL 80.0-97.0 Baso # 0.06 10^3u 0.0-0.1 Baso % 0.6 % 0-2 Eos # 0.24 10^3u 0-7 Eos % 2.3 % 0.0-0.7 Lymph % 11.2 % 10-50 MCHC 32.8 G/DL 31.8-35.4 MCH 28.5 PG 27.0-31.2 Lymph # 1.18 10^3u 0.6-3.4 HGB 11.5 G/DL 12.2-18.1 HCT 35.1 % 37.7-53.7 CMP - 05/29/12 11:57 Osmo Calculated 274 MOSM 261-280 Sodium 142 MMOLL 137-145 T. Protein 6.3 G/DL 6.3-8.2 Potassium 3.8 MMOLL 3.6-5.0 T Bili 0.4 MG/DL 0.2-1.3 Calcium 7.0 MG/DL 8.4-10.2 BUN 16 MG/DL 7-21 Chloride 107 MMOLL 98-107 AST 29 U/L 15-46 ALT 31 U/L 7-56 Albumin 3.3 G/DL 3.5-5.0 A/G Ratio 1.1 RATIO 1.2-2.2 Bun/Creat 21.4 RATIO 7-25 Alk Phos 71 U/L 38-126 CO2 24 MMOLL 22-30 Glucose 94 MG/DL 65-110 Globulin 3.0 2.4-3.5 Creatinine 0.8 MG/DL 0.7-1.5 Protime - 05/29/12 11:57 INR 4.7 Protime 47.9 SEC 9.6-11.9 Protime - 06/09/12 06:35 INR 5.1 Protime 52.3 SEC 9.6-11.9 BMP - 06/10/12 12:30 Osmo Calculated 281 MOSM 261-280 Sodium 146 MMOLL 137-145 Potassium 3.2 MMOLL 3.6-5.0 Calcium 7.3 MG/DL 8.4-10.2 BUN 13 MG/DL 7-21 Chloride 108 MMOLL 98-107 Anion GAP 15.1 Bun/Creat 18.2 RATIO 7-25 CO2 23 MMOLL 22-30 Glucose 100 MG/DL 65-110 Creatinine 0.7 MG/DL 0.7-1.5 CMP - 07/15/12 16:34 Osmo Calculated 276 MOSM 261-280 Sodium 140 MMOLL 137-145 T. Protein 7.4 G/DL 6.3-8.2 Potassium 5.2 MMOLL 3.6-5.0 T Bili 0.6 MG/DL 0.2-1.3 Calcium 10.3 MG/DL 8.4-10.2 BUN 27 MG/DL 7-21 Chloride 98 MMOLL 98-107 AST 36 U/L 15-46 ALT 46 U/L 7-56 Albumin 4.3 G/DL 3.5-5.0 A/G Ratio 1.4 RATIO 1.2-2.2 Bun/Creat 28.2 RATIO 7-25 Alk Phos 308 U/L 38-126 CO2 23 MMOLL 22-30 Glucose 106 MG/DL 65-110 Globulin 3.1 2.4-3.5 Creatinine 0.9 MG/DL 0.7-1.5 COMPLETE BLOOD COUNT - 07/15/12 16:34 Platelet 439 10^3u 142-424 MPV 11.0 FL 9.4-12.4 Jenkins # 0.61 10^3u 0.0-1.0 RBC 4.70 10^6u 4.04-6.13 Jenkins % 6.5 % 0-12 RDW 15.0 % 11.6-14.8 Neut # 7.03 10^3u 2.0-6.9 Neut % 75.4 % 37-80 WBC 9.33 10^3u 4.60-10.20 MCV 87.9 FL 80.0-97.0 Baso # 0.02 10^3u 0.0-0.1 Baso % 0.2 % 0-2 Eos # 0.40 10^3u 0-0.7 Eos % 4.3 % 0-7 Lymph % 13.6 % 10-50 MCHC 32.9 G/DL 31.8-35.4 MCH 28.9 PG 27.0-31.2 Lymph # 1.27 10^3u 0.6-3.4 HGB 13.6 G/DL 12.2-18.1 HCT 41.3 % 37.7-53.7 Protime - 07/15/12 16:34 INR 1.8 Protime 19.1 SEC 9.6-11.9 Protime - 07/25/12 11:21 INR 2.3 Protime 24.3 SEC 9.6-11.9 Protime - 07/29/12 06:12 INR 1.2 Protime 12.4 SEC 9.6-11.9 CMP - 07/29/12 16:14 Osmo Calculated 281 MOSM 261-280 Sodium 143 MMOLL 137-145 T. Protein 7.5 G/DL 6.3-8.2 Potassium 4.7 MMOLL 3.6-5.0 T Bili 0.3 MG/DL 0.2-1.3 Calcium 10.0 MG/DL 8.4-10.2 BUN 25 MG/DL 7-21 Chloride 101 MMOLL 98-107 AST 33 U/L 15-46 ALT 36 U/L 7-56 Albumin 4.0 G/DL 3.5-5.0 A/G Ratio 1.1 RATIO 1.2-2.2 Bun/Creat 24.6 RATIO 7-25 Alk Phos 173 U/L 38-126 CO2 30 MMOLL 22-30 Glucose 110 MG/DL 65-110 Globulin 3.5 2.4-3.5 Creatinine 1.0 MG/DL 0.7-1.5 COMPLETE BLOOD COUNT - 07/29/12 16:14 Platelet 399 10^3u 142-424 MPV 10.2 FL 9.4-12.4 Jenkins # 0.72 10^3u 0.0-1.0 RBC 4.17 10^6u 4.04-6.13 Jenkins % 6.7 % 0-12 RDW 14.9 % 11.6-14.8 Neut # 8.52 10^3u 2.0-6.9 Neut % 79.5 % 37-80 WBC 10.71 10^3u 4.60-10.20 MCV 89.2 FL 80.0-97.0 Baso # 0.03 10^3u 0.0-0.1 Baso % 0.3 % 0-2 Eos # 0.19 10^3u 0-0.7 Eos % 1.8 % 0-7 Lymph % 11.7 % 10-50 MCHC 32.8 G/DL 31.8-35.4 MCH 29.3 PG 27.0-31.2 Lymph # 1.25 10^3u 0.6-3.4 HGB 12.2 G/DL 12.2-18.1 HCT 37.2 % 37.7-53.7 COMPLETE BLOOD COUNT - 07/30/12 21:54 Platelet 462 10^3u 142-424 MPV 10.2 FL 9.4-12.4 Jenkins # 0.77 10^3u 0.0-1.0 Jenkins 4.0 RBC 4.69 10^6u 4.04-6.13 Jenkins % 4.0 % 0-12 RDW 15.0 % 11.6-14.8 Seg 87.0 Neut # 17.28 10^3u 2.0-6.9 Neut % 90.0 % 37-80 WBC 19.19 10^3u 4.60-10.20 Bands 5.0 MCV 87.0 FL 80.0-97.0 Baso # 0.03 10^3u 0.0-0.1 Baso % 0.2 % 0-2 Eos # 0.16 10^3u 0-0.7 Eos % 0.8 % 0-7 Lymph % 5.0 % 10-50 MCHC 33.3 G/DL 31.8-35.4 MCH 29.0 PG 27.0-31.2 Lymph # 0.95 10^3u 0.6-3.4 Lymph 4.0 HGB 13.6 G/DL 12.2-18.1 HCT 40.8 % 37.7-53.7 CMP - 07/30/12 21:54 Osmo Calculated 276 MOSM 261-280 Sodium 141 MMOLL 137-145 T. Protein 8.1 G/DL 6.3-8.2 Potassium 4.4 MMOLL 3.6-5.0 T Bili 0.6 MG/DL 0.2-1.3 Calcium 10.4 MG/DL 8.4-10.2 BUN 22 MG/DL 7-21 Chloride 95 MMOLL 98-107 AST 34 U/L 15-46 ALT 38 U/L 7-56 Albumin 4.5 G/DL 3.5-5.0 A/G Ratio 1.3 RATIO 1.2-2.2 Bun/Creat 16.6 RATIO 7-25 Alk Phos 217 U/L 38-126 CO2 29 MMOLL 22-30 Glucose 90 MG/DL 65-110 Globulin 3.6 2.4-3.5 Creatinine 1.3 MG/DL 0.7-1.5 Urinalysis - 07/30/12 22:24 Glucose Negative Negative Leukocyte Negative Negative Nitrite Negative Negative pH 7.5 5.5-7.5 Urine Appearance SLCLOUDY Clear Protein Trace Negative Ketones Negative Negative Urobilinogen 0.2 0.2-1.0 Urine RBC N0-2 Specific [place] 1.015 1.010-1.020 Urine WBC N0-2 Blood Negative Negative Color Yellow Yellow Bilirubin Negative Negative Blood Culture - 07/30/12 22:53 Blood Culture [facility] Blood Culture - 07/30/12 22:59 Blood Culture [facility] MRSA Nasal Screen - 07/31/12 02:04 MRSA Nasal Screen [facility] COMPLETE BLOOD COUNT - 07/31/12 05:50 Platelet 310 10^3u 142-424 MPV 10.1 FL 9.4-12.4 Jenkins # 0.83 10^3u 0.0-1.0 RBC 4.07 10^6u 4.04-6.13 Jenkins % 4.7 % 0-12 RDW 14.9 % 11.6-14.8 Neut # 15.86 10^3u 2.0-6.9 Neut % 89.6 % 37-80 WBC 17.69 10^3u 4.60-10.20 MCV 88.0 FL 80.0-97.0 Baso # 0.02 10^3u 0.0-0.1 Baso % 0.1 % 0-2 Eos # 0.05 10^3u 0-0.7 Eos % 0.3 % 0-7 Lymph % 5.3 % 10-50 MCHC 33.0 G/DL 31.8-35.4 MCH 29.0 PG 27.0-31.2 Lymph # 0.93 10^3u 0.6-3.4 HGB 11.8 G/DL 12.2-18.1 HCT 35.8 % 37.7-53.7 CMP - 07/31/12 05:50 Osmo Calculated 274 MOSM 261-280 Sodium 141 MMOLL 137-145 T. Protein 6.9 G/DL 6.3-8.2 Potassium 4.4 MMOLL 3.6-5.0 T Bili 0.8 MG/DL 0.2-1.3 Calcium 9.1 MG/DL 8.4-10.2 BUN 19 MG/DL 7-21 Chloride 103 MMOLL 98-107 AST 34 U/L 15-46 ALT 41 U/L 7-56 Albumin 3.5 G/DL 3.5-5.0 A/G Ratio 1.0 RATIO 1.2-2.2 Bun/Creat 19.9 RATIO 7-25 Alk Phos 152 U/L 38-126 CO2 26 MMOLL 22-30 Glucose 91 MG/DL 65-110 Globulin 3.4 2.4-3.5 Creatinine 1.0 MG/DL 0.7-1.5 Protime - 07/31/12 05:50 INR 2.0 Protime 20.3 SEC 9.6-11.9 BNP - 07/31/12 05:50 BNP 128.3 PG/ML <= 100 Mycoplasma Antibody - 07/31/12 06:24 Mycoplasma Antibody NEG Negative COMPLETE BLOOD COUNT - 08/01/12 06:08 Platelet 263 10^3u 142-424 MPV 9.6 FL 9.4-12.4 Jenkins # 0.56 10^3u 0.0-1.0 RBC 3.39 10^6u 4.04-6.13 Jenkins % 5.3 % 0-12 RDW 15.0 % 11.6-14.8 Neut # 8.62 10^3u 2.0-6.9 Neut % 82.3 % 37-80 WBC 10.48 10^3u 4.60-10.20 MCV 89.7 FL 80.0-97.0 Baso # 0.03 10^3u 0.0-0.1 Baso % 0.3 % 0-2 Eos # 0.15 10^3u 0-0.7 Eos % 1.4 % 0-7 Lymph % 10.7 % 10-50 MCHC 31.9 G/DL 31.8-35.4 MCH 28.6 PG 27.0-31.2 Lymph # 1.12 10^3u 0.6-3.4 HGB 9.7 G/DL 12.2-18.1 HCT 30.4 % 37.7-53.7 CMP - 08/02/12 08:01 Osmo Calculated 277 MOSM 261-280 Sodium 143 MMOLL 137-145 T. Protein 6.2 G/DL 6.3-8.2 Potassium 3.9 MMOLL 3.6-5.0 T Bili 0.2 MG/DL 0.2-1.3 Calcium 9.0 MG/DL 8.4-10.2 BUN 14 MG/DL 7-21 Chloride 105 MMOLL 98-107 AST 18 U/L 15-46 ALT 27 U/L 7-56 Albumin 3.2 G/DL 3.5-5.0 A/G Ratio 1.1 RATIO 1.2-2.2 Bun/Creat 19.1 RATIO 7-25 Alk Phos 110 U/L 38-126 CO2 24 MMOLL 22-30 Glucose 99 MG/DL 65-110 Globulin 3.0 2.4-3.5 Creatinine 0.7 MG/DL 0.7-1.5 Protime - 08/06/12 09:52 INR 1.3 Protime 13.7 SEC 9.6-11.9 Protime - 08/26/12 10:04 INR 1.4 Protime 14.6 SEC 9.6-11.9 COMPLETE BLOOD COUNT - 09/17/12 12:37 Platelet 309 10^3u 142-424 MPV 10.4 FL 9.4-12.4 Jenkins # 0.54 10^3u 0.0-1.0 RBC 4.43 10^6u 4.04-6.13 Jenkins % 7.2 % 0-12 RDW 15.0 % 11.6-14.8 Neut # 5.41 10^3u 2.0-6.9 Neut % 72.3 % 37-80 WBC 7.49 10^3u 4.60-10.20 MCV 88.7 FL 80.0-97.0 Baso # 0.03 10^3u 0.0-0.1 Baso % 0.4 % 0-2 Eos # 0.25 10^3u 0-0.7 Eos % 3.3 % 0-7 Lymph % 16.8 % 10-50 MCHC 32.8 G/DL 31.8-35.4 MCH 29.1 PG 27.0-31.2 Lymph # 1.26 10^3u 0.6-3.4 HGB 12.9 G/DL 12.2-18.1 HCT 39.3 % 37.7-53.7 CMP - 09/17/12 12:37 Osmo Calculated 282 MOSM 261-280 Sodium 146 MMOLL 137-145 T. Protein 7.7 G/DL 6.3-8.2 Potassium 3.5 MMOLL 3.6-5.0 T Bili 0.4 MG/DL 0.2-1.3 Calcium 9.8 MG/DL 8.4-10.2 BUN 18 MG/DL 7-21 Chloride 102 MMOLL 98-107 AST 37 U/L 15-46 ALT 37 U/L 7-56 Albumin 4.3 G/DL 3.5-5.0 A/G Ratio 1.2 RATIO 1.2-2.2 Bun/Creat 20.5 RATIO 7-25 Alk Phos 127 U/L 38-126 CO2 30 MMOLL 22-30 Glucose 96 MG/DL 65-110 Globulin 3.4 2.4-3.5 Creatinine 0.9 MG/DL 0.7-1.5 Protime - 09/17/12 12:37 INR 1.9 Protime 19.9 SEC 9.6-11.9 Magnesium - 09/17/12 12:37 Magnesium 0.6 MG/DL 1.7-2.2 Magnesium - 09/24/12 08:28 Magnesium 0.8 MG/DL 1.7-2.2 COMPLETE BLOOD COUNT - 10/08/12 11:41 Platelet 316 10^3u 142-424 MPV 10.0 FL 9.4-12.4 Jenkins # 0.66 10^3u 0.0-1.0 RBC 4.41 10^6u 4.04-6.13 Jenkins % 6.5 % 0-12 RDW 14.5 % 11.6-14.8 Neut # 7.70 10^3u 2.0-6.9 Neut % 76.0 % 37-80 WBC 10.13 10^3u 4.60-10.20 MCV 88.4 FL 80.0-97.0 Baso # 0.06 10^3u 0.0-0.1 Baso % 0.6 % 0-2 Eos # 0.16 10^3u 0-0.7 Eos % 1.6 % 0-7 Lymph % 15.3 % 10-50 MCHC 32.6 G/DL 31.8-35.4 MCH 28.8 PG 27.0-31.2 Lymph # 1.55 10^3u 0.6-3.4 HGB 12.7 G/DL 12.2-18.1 HCT 39.0 % 37.7-53.7 CMP - 10/08/12 11:41 Osmo Calculated 279 MOSM 261-280 Sodium 143 MMOLL 137-145 T. Protein 7.9 G/DL 6.3-8.2 Potassium 4.0 MMOLL 3.6-5.0 T Bili 0.5 MG/DL 0.2-1.3 Calcium 10.1 MG/DL 8.4-10.2 BUN 20 MG/DL 7-21 Chloride 99 MMOLL 98-107 AST 34 U/L 15-46 ALT 31 U/L 7-56 Albumin 4.4 G/DL 3.5-5.0 A/G Ratio 1.3 RATIO 1.2-2.2 Bun/Creat 20.8 RATIO 7-25 Alk Phos 113 U/L 38-126 CO2 30 MMOLL 22-30 Glucose 97 MG/DL 65-110 Globulin 3.4 2.4-3.5 Creatinine 1.0 MG/DL 0.7-1.5 Magnesium - 10/08/12 11:41 Magnesium 1.1 MG/DL 1.7-2.2 COMPLETE BLOOD COUNT - 10/29/12 12:36 Platelet 243 10^3u 142-424 MPV 10.0 FL 9.4-12.4 Jenkins # 0.58 10^3u 0.0-1.0 RBC 4.21 10^6u 4.04-6.13 Jenkins % 7.3 % 0-12 RDW 15.0 % 11.6-14.8 Neut # 5.84 10^3u 2.0-6.9 Neut % 73.7 % 37-80 WBC 7.92 10^3u 4.60-10.20 MCV 90.0 FL 80.0-97.0 Baso # 0.03 10^3u 0.0-0.1 Baso % 0.4 % 0-2 Eos # 0.21 10^3u 0-0.7 Eos % 2.7 % 0-7 Lymph % 15.9 % 10-50 MCHC 32.7 G/DL 31.8-35.4 MCH 29.5 PG 27.0-31.2 Lymph # 1.26 10^3u 0.6-3.4 HGB 12.4 G/DL 12.2-18.1 HCT 37.9 % 37.7-53.7 Protime - 10/29/12 12:36 INR 1.3 Protime 13.2 SEC 9.6-11.9 CMP - 10/29/12 12:36 Osmo Calculated 283 MOSM 261-280 Sodium 145 MMOLL 137-145 T. Protein 7.3 G/DL 6.3-8.2 Potassium 3.8 MMOLL 3.6-5.0 T Bili 0.3 MG/DL 0.2-1.3 Calcium 9.8 MG/DL 8.4-10.2 BUN 22 MG/DL 7-21 Chloride 99 MMOLL 98-107 AST 31 U/L 15-46 ALT 33 U/L 7-56 Albumin 4.3 G/DL 3.5-5.0 A/G Ratio 1.4 RATIO 1.2-2.2 Bun/Creat 22.5 RATIO 7-25 Alk Phos 90 U/L 38-126 CO2 31 MMOLL 22-30 Glucose 105 MG/DL 65-110 Globulin 3.0 2.4-3.5 Creatinine 1.0 MG/DL 0.7-1.5 Magnesium - 10/29/12 12:36 Magnesium 1.3 MG/DL 1.7-2.2 TSH - 10/29/12 12:36 TSH 1.26 UIUML 0.35-4.94 CMP - 11/07/12 06:27 Osmo Calculated 285 MOSM 261-280 Sodium 145 MMOLL 137-145 T. Protein 6.7 G/DL 6.3-8.2 Potassium 3.9 MMOLL 3.6-5.0 T Bili 0.3 MG/DL 0.2-1.3 Calcium 10.4 MG/DL 8.4-10.2 BUN 25 MG/DL 7- Chloride 101 MMOLL 98-107 AST 22 U/L 15-46 ALT 30 U/L 7 Albumin 3.9 G/DL 3.5-5.0 A/G Ratio 1.4 RATIO 1.2-2.2 Bun/Creat 27.1 RATIO 10-02 Alk Phos 95 U/L 38-126 CO2 31 MMOLL 22-30 Glucose 90 MG/DL 65-110 Globulin 2.8 2.4-3.5 Creatinine 0.9 MG/DL 0.7-1.5 Protime - 11/07/12 06:27 INR 1.7 Protime 17.5 SEC 9.6-11.9 Protime - 12/03/12 06:47 INR 1.5 Protime 15.4 SEC 9.6-11.9 Protime - 12/30/12 10:15 INR 2.4 Protime 25.4 SEC 9.6-11.9 BUN - 01/23/13 06:46 BUN 32 MG/DL 09-28 Creatinine - 01/23/13 06:46 Creatinine 1.2 MG/DL 0.7-1.5 CMP - 01/26/13 06:36 Osmo Calculated 277 MOSM 261-280 Sodium 142 MMOLL 137-145 T. Protein 7.4 G/DL 6.3-8.2 Potassium 3.5 MMOLL 3.6-5.0 T Bili 0.5 MG/DL 0.2-1.3 Calcium 10.0 MG/DL 8.4-10.2 BUN 23 MG/DL 09-28 Chloride 97 MMOLL 98-107 AST 23 U/L 15-46 ALT 30 U/L 7 Albumin 4.2 G/DL 3.5-5.0 A/G Ratio 1.3 RATIO 1.2-2.2 Bun/Creat 21.3 RATIO 10-02 Alk Phos 99 U/L 38-126 CO2 34 MMOLL 22-30 Glucose 88 MG/DL 65-110 Globulin 3.2 2.4-3.5 Creatinine 1.1 MG/DL 0.7-1.5 COMPLETE BLOOD COUNT - 01/26/13 06:36 Platelet 245 10^3u 142-424 MPV 10.7 FL 9.4-12.4 Jenkins # 0.73 10^3u 0.0-1.0 RBC 4.35 10^6u 4.04-6.13 Jenkins % 10.8 % 0-12 RDW 14.1 % 11.6-14.8 Neut # 3.89 10^3u 2.0-6.9 Neut % 57.4 % 37-80 WBC 6.77 10^3u 4.60-10.20 MCV 90.3 FL 80.0-97.0 Baso # 0.05 10^3u 0.0-0.1 Baso % 0.7 % 0-2 Eos # 0.37 10^3u 0-0.7 Eos % 5.5 % 0-7 Lymph % 25.6 % 10-50 MCHC 32.8 G/DL 31.8-35.4 MCH 29.7 PG 27.0-31.2 Lymph # 1.73 10^3u 0.6-3.4 HGB 12.9 G/DL 12.2-18.1 HCT 39.3 % 37.7-53.7 Protime - 01/26/13 06:36 INR 4.4 Protime 44.8 SEC 9.6-11.9 BUN - 01/29/13 06:28 BUN 18 MG/DL 09-28 Creatinine - 01/29/13 06:28 Creatinine 1.1 MG/DL 0.7-1.5 BUN - 02/02/13 06:09 BUN 32 MG/DL 09-28 Creatinine - 02/02/13 06:09 Creatinine 1.5 MG/DL 0.7-1.5 BUN - 02/06/13 09:39 BUN 34 MG/DL 09-28 Creatinine - 02/06/13 09:39 Creatinine 1.5 MG/DL 0.7-1.5 CMP - 02/10/13 06:25 Osmo Calculated 283 MOSM 261-280 Sodium 143 MMOLL 137-145 T. Protein 7.5 G/DL 6.3-8.2 Potassium 3.8 MMOLL 3.6-5.0 T Bili 0.7 MG/DL 0.2-1.3 Calcium 10.4 MG/DL 8.4-10.2 BUN 36 MG/DL 7-21 Chloride 97 MMOLL 98-107 AST 22 U/L 15-46 ALT 29 U/L 7-56 Albumin 4.2 G/DL 3.5-5.0 A/G Ratio 1.3 RATIO 1.2-2.2 Bun/Creat 23.0 RATIO 7-25 Alk Phos 93 U/L 38-126 CO2 33 MMOLL 22-30 Glucose 93 MG/DL 65-110 Globulin 3.2 2.4-3.5 Creatinine 1.6 MG/DL 0.7-1.5 BUN - 02/12/13 06:10 BUN 32 MG/DL 7- Creatinine - 02/12/13 06:10 Creatinine 1.7 MG/DL 0.7-1.5 BUN - 02/16/13 10:11 BUN 28 MG/DL 7- Creatinine - 02/16/13 10:11 Creatinine 1.4 MG/DL 0.7-1.5 BUN - 02/19/13 09:01 BUN 26 MG/DL 7- Creatinine - 02/19/13 09:01 Creatinine 1.4 MG/DL 0.7-1.5 Protime - 02/19/13 09:01 INR 10.0 Protime 103.0 SEC 9.6-11.9 Protime - 02/20/13 08:37 INR 5.2 Protime 53.7 SEC 9.6-11.9 Protime - 02/21/13 09:18 INR 1.2 Protime 12.4 SEC 9.6-11.9 Protime - 02/22/13 06:29 INR 1.2 Protime 12.5 SEC 9.6-11.9 BUN - 02/23/13 08:18 BUN 34 MG/DL 7- Creatinine - 02/23/13 08:18 Creatinine 1.8 MG/DL 0.7-1.5 Protime - 02/23/13 08:18 INR 1.2 Protime 12.4 SEC 9.6-11.9 Protime - 02/27/13 08:35 INR 3.6 Protime 36.8 SEC 9.6-11.9 BUN - 03/02/13 15:44 BUN 42 MG/DL 7- Creatinine - 03/02/13 15:44 Creatinine 2.6 MG/DL 0.7-1.5 Protime - 03/10/13 08:19 INR 4.7 Protime 48.7 SEC 9.6-11.9 Protime - 03/31/13 09:46 INR 2.9 Protime 30.2 SEC 9.6-11.9 Protime - 05/05/13 10:08 INR 1.6 Protime 18.6 SEC 9.6-11.9 CMP - 05/25/13 11:02 Osmo Calculated 288 MOSM 261-280 Sodium 146 MMOLL 137-145 T. Protein 6.9 G/DL 6.3-8.2 Potassium 4.3 MMOLL 3.6-5.0 T Bili 0.5 MG/DL 0.2-1.3 Calcium 9.6 MG/DL 8.4-10.2 BUN 31 MG/DL 7-21 Chloride 97 MMOLL 98-107 AST 32 U/L 15-46 ALT 45 U/L 7-56 Albumin 4.2 G/DL 3.5-5.0 A/G Ratio 1.6 RATIO 1.2-2.2 Bun/Creat 15.8 RATIO 7-25 Alk Phos 133 U/L 38-126 CO2 34 MMOLL 22-30 Glucose 102 MG/DL 65-110 Globulin 2.7 2.4-3.5 Creatinine 2.0 MG/DL 0.7-1.5 Magnesium - 05/25/13 11:02 Magnesium 1.3 MG/DL 1.7-2.2 COMPLETE BLOOD COUNT - 05/25/13 11:02 Platelet 203 10^3u 142-424 MPV 10.2 FL 9.4-12.4 Jenkins # 0.43 10^3u 0.0-1.0 RBC 3.98 10^6u 4.04-6.13 Jenkins % 7.8 % 0-12 RDW 15.1 % 11.6-14.8 Neut # 3.21 10^3u 2.0-6.9 Neut % 58.5 % 37-80 WBC 5.48 10^3u 4.60-10.20 MCV 89.7 FL 80.0-97.0 Baso # 0.08 10^3u 0.0-0.1 Baso % 1.5 % 0-2 Eos # 0.48 10^3u 0-0.7 Eos % 8.8 % 0-7 Lymph % 23.4 % 10-50 MCHC 33.3 G/DL 31.8-35.4 MCH 29.9 PG 27.0-31.2 Lymph # 1.28 10^3u 0.6-3.4 HGB 11.9 G/DL 12.2-18.1 HCT 35.7 % 37.7-53.7 Protime - 05/25/13 11:02 INR 3.1 Protime 36.3 SEC 9.6-11.9 CMP - 07/02/13 16:02 Osmo Calculated 287 MOSM 261-280 Sodium 146 MMOLL 137-145 T. Protein 7.0 G/DL 6.3-8.2 Potassium 3.4 MMOLL 3.6-5.0 T Bili 0.6 MG/DL 0.2-1.3 Calcium 9.7 MG/DL 8.4-10.2 BUN 28 MG/DL 7-21 Chloride 97 MMOLL 98-107 AST 26 U/L 15-46 ALT 42 U/L 7-56 Albumin 4.3 G/DL 3.5-5.0 A/G Ratio 1.6 RATIO 1.2-2.2 Bun/Creat 21.7 RATIO 7-25 Alk Phos 118 U/L 38-126 CO2 30 MMOLL 22-30 Glucose 88 MG/DL 65-110 Globulin 2.7 2.4-3.5 Creatinine 1.3 MG/DL 0.7-1.5 BNP - 07/02/13 16:02 BNP 27.1 PG/ML <= 100 COMPLETE BLOOD COUNT - 07/02/13 16:02 Platelet 203 10^3u 142-424 MPV 10.1 FL 9.4-12.4 Jenkins # 0.47 10^3u 0.0-1.0 RBC 4.00 10^6u 4.04-6.13 Jenkins % 5.6 % 0-12 RDW 14.0 % 11.6-14.8 Neut # 5.67 10^3u 2.0-6.9 Neut % 67.7 % 37-80 WBC 8.38 10^3u 4.60-10.20 MCV 91.8 FL 80.0-97.0 Baso # 0.07 10^3u 0.0-0.1 Baso % 0.8 % 0-2 Eos # 0.44 10^3u 0-0.7 Eos % 5.3 % 0-7 Lymph % 20.6 % 10-50 MCHC 33.2 G/DL 31.8-35.4 MCH 30.5 PG 27.0-31.2 Lymph # 1.73 10^3u 0.6-3.4 HGB 12.2 G/DL 12.2-18.1 HCT 36.7 % 37.7-53.7 Protime - 07/02/13 16:02 INR 1.1 Protime 12.8 SEC 9.6-11.9 COMPLETE BLOOD COUNT - 07/22/13 10:15 Platelet 212 10^3u 142-424 MPV 10.3 FL 9.4-12.4 Jenkins # 0.55 10^3u 0.0-1.0 RBC 3.82 10^6u 4.04-6.13 Jenkins % 7.5 % 0-12 RDW 14.0 % 11.6-14.8 Neut # 4.92 10^3u 2.0-6.9 Neut % 67.0 % 37-80 WBC 7.35 10^3u 4.60-10.20 MCV 92.4 FL 80.0-97.0 Baso # 0.04 10^3u 0.0-0.1 Baso % 0.5 % 0-2 Eos # 0.23 10^3u 0-0.7 Eos % 3.1 % 0-7 Lymph % 21.9 % 10-50 MCHC 33.4 G/DL 31.8-35.4 MCH 30.9 PG 27.0-31.2 Lymph # 1.61 10^3u 0.6-3.4 HGB 11.8 G/DL 12.2-18.1 HCT 35.3 % 37.7-53.7 Protime - 07/22/13 10:15 INR 1.1 Protime 11.7 SEC 9.6-11.9 CMP - 07/22/13 10:15 Osmo Calculated 285 MOSM 261-280 Sodium 146 MMOLL 137-145 T. Protein 6.7 G/DL 6.3-8.2 Potassium 4.0 MMOLL 3.6-5.0 T Bili 0.4 MG/DL 0.2-1.3 Calcium 9.8 MG/DL 8.4-10.2 BUN 22 MG/DL 7-21 Chloride 100 MMOLL 98-107 AST 44 U/L 15-46 ALT 43 U/L 7-56 Albumin 4.1 G/DL 3.5-5.0 A/G Ratio 1.6 RATIO 1.2-2.2 Bun/Creat 18.7 RATIO 7-25 Alk Phos 104 U/L 38-126 CO2 30 MMOLL 22-30 Glucose 91 MG/DL 65-110 Globulin 2.6 2.4-3.5 Creatinine 1.2 MG/DL 0.7-1.5 COMPLETE BLOOD COUNT - 10/07/13 12:55 Platelet 191 10^3u 142-424 MPV 10.3 FL 9.4-12.4 Jenkins # 0.52 10^3u 0.0-1.0 RBC 4.86 10^6u 4.04-6.13 Jenkins % 5.8 % 0-12 RDW 13.2 % 11.6-14.8 Neut # 6.47 10^3u 2.0-6.9 Neut % 72.8 % 37-80 WBC 8.89 10^3u 4.60-10.20 MCV 90.9 FL 80.0-97.0 Baso # 0.06 10^3u 0.0-0.1 Baso % 0.7 % 0-2 Eos # 0.19 10^3u 0-0.7 Eos % 2.1 % 0-7 Lymph % 18.6 % 10-50 MCHC 33.5 G/DL 31.8-35.4 MCH 30.5 PG 27.0-31.2 Lymph # 1.65 10^3u 0.6-3.4 HGB 14.8 G/DL 12.2-18.1 HCT 44.2 % 37.7-53.7 CMP - 10/07/13 12:55 Osmo Calculated 285 MOSM 261-280 Sodium 144 MMOLL 137-145 T. Protein 8.2 G/DL 6.3-8.2 Potassium 3.6 MMOLL 3.6-5.0 T Bili 0.7 MG/DL 0.2-1.3 Calcium 10.7 MG/DL 8.4-10.2 BUN 32 MG/DL 7-21 Chloride 94 MMOLL 98-107 AST 44 U/L 15-46 ALT 72 U/L 7- Albumin 4.8 G/DL 3.5-5.0 A/G Ratio 1.4 RATIO 1.2-2.2 Bun/Creat 21.1 RATIO 7-25 Alk Phos 146 U/L 38-126 CO2 36 MMOLL 22-30 Glucose 101 MG/DL 65-110 Globulin 3.4 2.4-3.5 Creatinine 1.5 MG/DL 0.7-1.5 COMPLETE BLOOD COUNT - 10/19/13 04:40 Platelet 229 10^3u 142-424 MPV 11.5 FL 9.4-12.4 Jenkins # 0.85 10^3u 0.0-1.0 RBC 5.43 10^6u 4.04-6.13 Jenkins % 6.2 % 0-12 RDW 13.4 % 11.6-14.8 Neut # 10.62 10^3u 2.0-6.9 Neut % 77.8 % 37-80 WBC 13.66 10^3u 4.60-10.20 MCV 87.1 FL 80.0-97.0 Baso # 0.06 10^3u 0.0-0.1 Baso % 0.4 % 0-2 Eos # 0.21 10^3u 0-0.7 Eos % 1.5 % 0-7 Lymph % 14.1 % 10-50 MCHC 34.7 G/DL 31.8-35.4 MCH 30.2 PG 27.0-31.2 Lymph # 1.92 10^3u 0.6-3.4 HGB 16.4 G/DL 12.2-18.1 HCT 47.3 % 37.7-53.7 CMP - 10/19/13 04:40 Osmo Calculated 278 MOSM 261-280 Sodium 143 MMOLL 137-145 T. Protein 8.3 G/DL 6.3-8.2 Potassium 3.2 MMOLL 3.6-5.0 T Bili 0.8 MG/DL 0.2-1.3 Calcium 10.1 MG/DL 8.4-10.2 BUN 18 MG/DL 7- Chloride 97 MMOLL 98-107 AST 35 U/L 15-46 ALT 22 U/L 7-56 Albumin 4.7 G/DL 3.5-5.0 A/G Ratio 1.3 RATIO 1.2-2.2 Bun/Creat 13.4 RATIO 7-25 Alk Phos 169 U/L 38-126 CO2 23 MMOLL 22-30 Glucose 86 MG/DL 65-110 Globulin 3.6 2.4-3.5 Creatinine 1.4 MG/DL 0.7-1.5 Amylase - 10/19/13 04:40 Amylase 49 U/L 30-110 Lipase - 10/19/13 04:40 Lipase 87 U/L 23-300 H Pylori Antibody IGG - 10/19/13 04:40 H Pylori Antibody IGG NEG Negative Urine Drug Screen - 10/19/13 08:22 Opiates Ur POS Negative MDMA Ur NEG Negative Tricyclics Ur NEG Negative Propoxyphene Ur NEG Negative Phencyclidine Ur NEG Negative Cannabinoid Ur NEG Negative Oxycodone Ur NEG Negative Amphetamine Ur NEG Negative Cocaine Ur NEG Negative Barbituates Ur NEG Negative Benzo Ur POS Negative Urinalysis - 10/19/13 08:22 Glucose Negative Negative Urine Other CULTURE PENDING Leukocyte Negative Negative Nitrite Negative Negative pH 5.5 5.5-7.5 Urine Appearance SLCLOUDY Clear Protein 2+ Negative Ketones 1+ Negative Urobilinogen 0.2 0.2-1.0 Urine RBC N16-20 Specific [place] 1.020 1.010-1.020 Urine WBC N3-5 Urine Bacteria 1+ Blood 1+ Negative Color Yellow Yellow Squamous Epithelial Cells 2+ Bilirubin Negative Negative Site UNK COMPLETE BLOOD COUNT - 02/25/14 12:58 Platelet 211 10^3u 142-424 MPV 11.0 FL 9.4-12.4 Jenkins # 0.46 10^3u 0.0-1.0 RBC 4.49 10^6u 4.04-6.13 Jenkins % 4.9 % 0-12 RDW 13.3 % 11.6-14.8 Neut # 7.56 10^3u 2.0-6.9 Neut % 80.3 % 37-80 WBC 9.41 10^3u 4.60-10.20 MCV 92.4 FL 80.0-97.0 Baso # 0.04 10^3u 0.0-0.1 Baso % 0.4 % 0-2 Eos # 0.15 10^3u 0-0.7 Eos % 1.6 % 0-7 Lymph % 12.8 % 10-50 MCHC 32.8 G/DL 31.8-35.4 MCH 30.3 PG 27.0-31.2 Lymph # 1.20 10^3u 0.6-3.4 HGB 13.6 G/DL 12.2-18.1 HCT 41.5 % 37.7-53.7 CMP - 02/25/14 12:58 Osmo Calculated 269 MOSM 261-280 Sodium 138 MMOLL 137-145 T. Protein 7.7 G/DL 6.3-8.2 Potassium 5.1 MMOLL 3.6-5.0 T Bili 0.8 MG/DL 0.2-1.3 Calcium 9.3 MG/DL 8.4-10.2 BUN 21 MG/DL 7-21 Chloride 104 MMOLL 98-107 AST 27 U/L 15-46 ALT 34 U/L 7-56 Albumin 4.4 G/DL 3.5-5.0 A/G Ratio 1.3 RATIO 1.2-2.2 Bun/Creat 14.3 RATIO 7-25 Alk Phos 120 U/L 38-126 CO2 28 MMOLL 22-30 Glucose 105 MG/DL 65-110 Globulin 3.3 2.4-3.5 Creatinine 1.5 MG/DL 0.7-1.5 Respiratory Panel-Bio [facility] - 02/25/14 16 :44 Adeno ND Not Detected Adeno2 ND Not Detected Coronavirus 229E ND Not Detected Coronavirus HKU1 ND Not Detected Coronavirus NL63 ND Not Detected Coronavirus OC43 ND Not Detected Human Metapneumovirus ND Not Dete cted Entero 1 ND Not Detected Entero 2 ND Not Detected Human Rhinovirus 1 ND Not Detecte d Human Rhinovirus 2 ND Not Detecte d Human Rhinovirus 3 ND Not Detecte d Human Rhinovirus 4 ND Not Detecte d [id number] ND Not Detected FluA-H1-mccullough ND Not Detected FluA-H3 ND Not Detected FluA-pan1 ND Not Detected FluA-pan2 ND Not Detected Influenza B ND Not Detected Parainfluenza Virus 1 ND Not Dete cted Parainfluenza Virus 2 ND Not Dete cted Parainfluenza Virus 3 ND Not Dete cted Parainfluenza Virus 4 ND Not Dete cted Respiratory Syncytial Virus ND No t Detected Bordetella pertussis ND Not Detec paolo Chlamydophilia pneumoniae ND Not Detected Mycoplasma pneumoniae ND Not Dete cted COMPLETE BLOOD COUNT - 09/09/14 15:21 Platelet 329 10^3u 142-424 MPV 10.7 FL 9.4-12.4 Jenkins # 0.67 10^3u 0.0-1.0 RBC 4.43 10^6u 4.04-6.13 Jenkins % 5.8 % 0-12 RDW 13.3 % 11.6-14.8 Neut # 9.11 10^3u 2.0-6.9 Neut % 78.2 % 37-80 WBC 11.65 10^3u 4.60-10.20 MCV 91.0 FL 80.0-97.0 Baso # 0.05 10^3u 0.0-0.1 Baso % 0.4 % 0-2 Eos # 0.25 10^3u 0-0.7 Eos % 2.1 % 0-7 Lymph % 13.5 % 10-50 MCHC 32.8 G/DL 31.8-35.4 MCH 29.8 PG 27.0-31.2 Lymph # 1.57 10^3u 0.6-3.4 HGB 13.2 G/DL 12.2-18.1 HCT 40.3 % 37.7-53.7 CMP - 09/09/14 15:52 Osmo Calculated 272 MOSM 261-280 Sodium 141 MMOLL 137-145 T. Protein 7.3 G/DL 6.3-8.2 Potassium 5.1 MMOLL 3.6-5.0 T Bili 0.7 MG/DL 0.2-1.3 Calcium 9.9 MG/DL 8.4-10.2 BUN 14 MG/DL 7-21 Chloride 105 MMOLL 98-107 AST 21 U/L 15-46 ALT 28 U/L 7-56 Albumin 4.4 G/DL 3.5-5.0 A/G Ratio 1.5 RATIO 1.2-2.2 Bun/Creat 14.2 RATIO 7-25 Alk Phos 176 U/L 38-126 CO2 22 MMOLL 22-30 Glucose 97 MG/DL 65-110 Globulin 3.0 2.4-3.5 Creatinine 1.0 MG/DL 0.7-1.5 Mycoplasma Antibody - 09/09/14 16:04 Mycoplasma Antibody NEG Negative EKG - 12/08/14 03:04 EKG SMR COMPLETE BLOOD COUNT - 07/07/15 22:49 Platelet 216 10^3u 142-424 MPV 11.2 FL 9.4-12.4 Jenkins # 0.50 10^3u 0.0-1.0 RBC 4.35 10^6u 4.04-6.13 Jenkins % 5.3 % 0-12 RDW 14.1 % 11.6-14.8 Neut # 6.61 10^3u 2.0-6.9 Neut % 69.9 % 37-80 WBC 9.46 10^3u 4.60-10.20 MCV 90.1 FL 80.0-97.0 Baso # 0.06 10^3u 0.0-0.1 Baso % 0.6 % 0-2 Eos # 0.21 10^3u 0-0.7 Eos % 2.2 % 0-7 Lymph % 22.0 % 10-50 MCHC 34.2 G/DL 31.8-35.4 MCH 30.8 PG 27.0-31.2 Lymph # 2.08 10^3u 0.6-3.4 HGB 13.4 G/DL 12.2-18.1 HCT 39.2 % 37.7-53.7 CMP - 07/07/15 23:11 Osmo Calculated 270 MOSM 261-280 Sodium 140 MMOLL 136-145 T. Protein 5.9 G/DL 6.4-8.3 Potassium 3.6 MMOLL 3.5-5.1 T Bili 0.6 MG/DL 0.2-1.2 Calcium 8.7 MG/DL 8.4-10.2 BUN 13 MG/DL 7-26 Chloride 105 MMOLL 98-107 AST 17 U/L 5-34 ALT 16 U/L 0-55 Albumin 3.2 G/DL 3.5-5.0 A/G Ratio 1.2 RATIO 1.2-2.2 Bun/Creat 12 RATIO 7-25 Alk Phos 67 U/L 40-150 CO2 25 MMOLL 22-29 Glucose 98 MG/DL 70-99 Globulin 2.7 G/DL 2.4-3.5 Creatinine 1.1 MG/DL 0.6-1.3 TSH - 07/07/15 23:11 TSH 0.57 UIUML 0.35-4.94 Free T4 - 07/07/15 23:11 Free T4 0.96 NG/DL 0.70-1.48 Urinalysis - 07/08/15 04:09 Glucose Negative Negative Leukocyte Negative Negative Nitrite Negative Negative pH 5.0 5.5-7.5 Urine Appearance Clear Clear Protein 1+ Negative Ketones Negative Negative Urobilinogen 0.2 0.2-1.0 Urine RBC NONESEEN Specific [place] 1.010 1.010-1.020 Urine WBC NONESEEN Urine Bacteria Trace Blood Negative Negative Color Yellow Yellow Squamous Epithelial Cells 1+ Bilirubin Negative Negative Site UNK EKG - 07/11/15 03:33 EKG [facility] Urinalysis - 02/28/16 11:23 Glucose Negative Negative Leukocyte Negative Negative Nitrite Negative Negative pH 6.0 5.5-7.5 Urine Appearance Clear Clear Protein Negative Negative Ketones Negative Negative Urobilinogen 0.2 0.2-1.0 Urine RBC NONESEEN Specific [place] 1.010 1.010-1.020 Urine WBC NONESEEN Blood Negative Negative Color Yellow Yellow Bilirubin Negative Negative Site UNK Microalbumin, Urine - 02/28/16 11:35 Creatinine, Urine 50 MG/DL Microalbumin 10 MG/DL <= 10 Microalbumin/ Creatinine Ratio 30 mg/g <30 Complete blood count (CBC) with automate d white blood cell (WBC) differential - 05/27/18 17:20 Blood leukocytes automated count (number/volume) 11.5 10*3/uL 4.3-11.0 Blood erythrocytes automated count (number/volume) 4.67 10*6/uL 4.35-5.85 Venous blood hemoglobin measurement (mass/volume) 13.1 g/dL 13.3-17.7 Blood hematocrit (volume fraction) 42 % 40-54 Automated erythrocyte mean corpuscular volume 89 [ foz_us] 80-99 Automated erythrocyte mean corpuscular h emoglobin (mass per erythrocyte) 28 pg 25-34 Automated erythrocyte mean corpuscular h emoglobin concentration measurement (mass/volume) 31 g/dL 32-36 Automated erythrocyte distribution width ratio 15. 9 % 10.0- 14.5 Automated blood platelet count (count/volume) 266 10*3/uL 130-400 Automated blood platelet mean volume measurement 11.6 [foz_us] 7.4-10.4 Automated blood neutrophils/100 leukocytes 86 % 42-75 Automated blood lymphocytes/100 leukocytes 8 % 12-44 Blood monocytes/100 leukocytes 5 % 0-12 Automated blood eosinophils/100 leukocytes 1 % 0-10 Automated blood basophils/100 leukocytes 0 % 0-10 Blood neutrophils automated count (number/volume) 9.8 10*3 1.8-7.8 Blood lymphocytes automated count (number/volume) 0.9 10*3 1.0-4.0 Blood monocytes automated count (number/volume) 0. 6 10*3 0.0-1.0 Automated eosinophil count 0.2 10*3/uL 0 .0-0.3 Automated blood basophil count (count/volume) 0.0 10*3/uL 0.0-0.1 PT panel in platelet poor plasma by coag ulation assay - 05/27/18 17:20 Prothrombin time (PT) in platelet poor plasma by coagu lation assay 14.9 s 12.2-14.7 INR in platelet poor plasma or blood by coagulation as say 1.2 0.8-1.4 Activated partial thromboplastin time (a PTT) in platelet poor plasma bycoagulation assay - 05/27/18 17:20 Activated partial thromboplastin time (a PTT) in platelet poor plasma bycoagulation assay 35 s 24-35 Blood manual differential performed dete ction - 05/27/18 17:20 Blood monocytes/100 leukocytes 2 % NRG Manual blood segmented neutrophils/100 leukocytes 79 % NRG Blood band neutrophils/100 leukocytes 5 % NRG Manual blood lymphocytes/100 leukocytes 14 % NRG Manual eosinophils/100 leukocytes in nose 0 % NRG Manual blood basophils/100 leukocytes 0 % NRG Blood erythrocyte morphology finding identification NORMAL NR Comprehensive metabolic panel - 05/27/18 17:20 Serum or plasma sodium measurement (moles/volume) 132 mmol/L 135-145 Serum or plasma potassium measurement (moles/volume) 5.2 mmol/L 3.6-5.0 Serum or plasma chloride measurement (moles/volume) 96 mmol/L 98-107 Carbon dioxide 29 mmol/L 21-32 Serum or plasma anion gap determination (moles/volume) 7 mmol/L 5-14 Serum or plasma urea nitrogen measurement (mass/volume ) 14 mg/dL 7-18 Serum or plasma creatinine measurement (mass/volume) 0.99 mg/dL 0.60-1.30 Serum or plasma urea nitrogen/creatinine mass ratio 14 NRG Serum or plasma creatinine measurement w ith calculation of estimated glomerular filtration rate > NRG Serum or plasma glucose measurement (mass/volume) 80 mg/dL 70-105 Serum or plasma calcium measurement (mass/volume) 9.4 mg/dL 8.5-10.1 Serum or plasma total bilirubin measurement (mass/volu me) 0.3 mg/dL 0.1-1.0 Serum or plasma alkaline phosphatase gilda surement (enzymatic activity/volume) 107 U/L 40-136 Serum or plasma aspartate aminotransfera se measurement (enzymatic activity/volume) 45 U/L 5-34 Serum or plasma alanine aminotransferase measurement (enzymatic activity/volume) 25 U/L 0-55 Serum or plasma protein measurement (mass/volume) 7.6 g/dL 6.4-8.2 Serum or plasma albumin measurement (mass/volume) 3.9 g/dL 3.2-4.5 CALCIUM CORRECTED 9.5 mg/dL 8.5-10.1 Influenza virus A and B antigen detectio n - 05/27/18 17:27 FLU RESULT NEGATIVE FOR INFLUENZA A AND B ANTIGENS BY IA NRG Arterial blood gas measurement - 9 17:40 Blood pCO2 46 mm[Hg] 35-45 Blood pO2 46 mm[Hg] 79-93 Arterial blood bicarbonate measurement (moles/volume) 29 mmol/L 23-27 Arterial blood base excess by calculation 3.1 mmol /L -2.5-2.5 Arterial blood oxygen saturation measurement 82 % 94-100 * Inhaled oxygen flow rate ROOM AIR NRG Arterial blood pH measurement with patient temperature correction 7.40 7.37-7.43 Arterial blood carbon dioxide, total measurement (mole s/volume) 29.9 mmol/L 21.0-31.0 Body site RT RADIAL NRG Assessment of wrist artery patency prior to arterial p uncture YES-POS NRG Setting of ventilation mode NO NR G Measurement of body temperature 101.1 NRG Blood lactic acid measurement (moles/vol ume) - 05/27/18 18:00 Blood lactic acid measurement (moles/volume) 1.02 mmol/L 0.50-2.00 Bacterial blood culture - 05/27/18 18:00 Bacterial blood culture NG NRG Bacterial blood culture - 05/27/18 18:05 Bacterial blood culture NG NRG Complete urinalysis with reflex to cultu re - 05/27/18 20:20 Urine color determination YELLOW NRG Urine clarity determination CLEAR NR G Urine pH measurement by test strip 5 5-9 Specific gravity of urine by test strip 1.015 1.016-1.022 Urine protein assay by test strip, semi-quantitative 1+ NEGATIVE Urine glucose detection by automated test strip NE GATIVE NEGATIVE Erythrocytes detection in urine sediment by light micr oscopy NEGATIVE NEGATIVE Urine ketones detection by automated test strip NE GATIVE NEGATIVE Urine nitrite detection by test strip NEGATIVE NEGATIVE Urine total bilirubin detection by test strip NEGA TIVE NEGATIVE Urine urobilinogen measurement by automated test strip (mass/volume) NORMAL NORMAL Urine leukocyte esterase detection by dipstick 1+ NEGATIVE Automated urine sediment erythrocyte cou nt by microscopy (number/high power field) NONE NRG Automated urine sediment leukocyte count by microscopy (number/high power field) [HPF] NRG Bacteria detection in urine sediment by light microsco py TRACE NRG Squamous epithelial cells detection in u rine sediment by light microscopy 0-2 NRG Crystals detection in urine sediment by light microsco py NONE NRG Casts detection in urine sediment by light microscopy NONE NRG Mucus detection in urine sediment by light microscopy SMALL NRG Complete urinalysis with reflex to culture NO NRG Methicillin resistant Staphylococcus aur eus (MRSA) screening culture - 05/27/18 22:10 Methicillin resistant Staphylococcus aureus (MRSA) scr eening culture NEG NRG Complete blood count (CBC) with automate d white blood cell (WBC) differential - 05/28/18 03:15 Blood leukocytes automated count (number/volume) 6.6 10*3/uL 4.3-11.0 Blood erythrocytes automated count (number/volume) 4.58 10*6/uL 4.35-5.85 Venous blood hemoglobin measurement (mass/volume) 13.0 g/dL 13.3-17.7 Blood hematocrit (volume fraction) 40 % 40-54 Automated erythrocyte mean corpuscular volume 88 [ foz_us] 80-99 Automated erythrocyte mean corpuscular h emoglobin (mass per erythrocyte) 28 pg 25-34 Automated erythrocyte mean corpuscular h emoglobin concentration measurement (mass/volume) 32 g/dL 32-36 Automated erythrocyte distribution width ratio 15. 8 % 10.0- 14.5 Automated blood platelet count (count/volume) 185 10*3/uL 130-400 Automated blood platelet mean volume measurement 11.4 [foz_us] 7.4-10.4 Automated blood neutrophils/100 leukocytes 95 % 42-75 Automated blood lymphocytes/100 leukocytes 4 % 12-44 Blood monocytes/100 leukocytes 1 % 0-12 Automated blood eosinophils/100 leukocytes 0 % 0-10 Automated blood basophils/100 leukocytes 0 % 0-10 Blood neutrophils automated count (number/volume) 6.2 10*3 1.8-7.8 Blood lymphocytes automated count (number/volume) 0.3 10*3 1.0-4.0 Blood monocytes automated count (number/volume) 0. 0 10*3 0.0-1.0 Automated eosinophil count 0.0 10*3/uL 0 .0-0.3 Automated blood basophil count (count/volume) 0.0 10*3/uL 0.0-0.1 Comprehensive metabolic panel - 05/28/18 03:15 Serum or plasma sodium measurement (moles/volume) 137 mmol/L 135-145 Serum or plasma potassium measurement (moles/volume) 5.0 mmol/L 3.6-5.0 Serum or plasma chloride measurement (moles/volume) 108 mmol/L 98-107 Carbon dioxide 20 mmol/L 21-32 Serum or plasma anion gap determination (moles/volume) 9 mmol/L 5-14 Serum or plasma urea nitrogen measurement (mass/volume ) 15 mg/dL 7-18 Serum or plasma creatinine measurement (mass/volume) 1.06 mg/dL 0.60-1.30 Serum or plasma urea nitrogen/creatinine mass ratio 14 NRG Serum or plasma creatinine measurement w ith calculation of estimated glomerular filtration rate > NRG Serum or plasma glucose measurement (mass/volume) 137 mg/dL 70-105 Serum or plasma calcium measurement (mass/volume) 8.9 mg/dL 8.5-10.1 Serum or plasma total bilirubin measurement (mass/volu me) 0.3 mg/dL 0.1-1.0 Serum or plasma alkaline phosphatase gilda surement (enzymatic activity/volume) 89 U/L 40-136 Serum or plasma aspartate aminotransfera se measurement (enzymatic activity/volume) 17 U/L 5-34 Serum or plasma alanine aminotransferase measurement (enzymatic activity/volume) 19 U/L 0-55 Serum or plasma protein measurement (mass/volume) 6.6 g/dL 6.4-8.2 Serum or plasma albumin measurement (mass/volume) 3.6 g/dL 3.2-4.5 CALCIUM CORRECTED 9.2 mg/dL 8.5-10.1 Serum or plasma phosphate measurement (m ass/volume) - 05/28/18 03:15 Serum or plasma phosphate measurement (mass/volume) 4.1 mg/dL 2.3-4.7 Magnesium - 05/28/18 03:15 Magnesium 1.4 mg/dL 1.8-2.4 Sputum Gram stain - 05/28/18 09:40 Sputum Gram stain Culture will be cancelled NRG Bacterial sputum culture - 05/28/18 09:4 0 Bacterial sputum culture TNP NRG Capillary blood glucose measurement by g lucometer (mass/volume) - 05/28/18 20:44 Capillary blood glucose measurement by glucometer (mas s/volume) 126 mg/dL 70-110 Complete blood count (CBC) with automate d white blood cell (WBC) differential - 05/29/18 04:20 Blood leukocytes automated count (number/volume) 4.8 10*3/uL 4.3-11.0 Blood erythrocytes automated count (number/volume) 4.34 10*6/uL 4.35-5.85 Venous blood hemoglobin measurement (mass/volume) 12.2 g/dL 13.3-17.7 Blood hematocrit (volume fraction) 39 % 40-54 Automated erythrocyte mean corpuscular volume 89 [ foz_us] 80-99 Automated erythrocyte mean corpuscular h emoglobin (mass per erythrocyte) 28 pg 25-34 Automated erythrocyte mean corpuscular h emoglobin concentration measurement (mass/volume) 32 g/dL 32-36 Automated erythrocyte distribution width ratio 15. 8 % 10.0- 14.5 Automated blood platelet count (count/volume) 132 10*3/uL 130-400 Automated blood platelet mean volume measurement 11.3 [foz_us] 7.4-10.4 Automated blood neutrophils/100 leukocytes 86 % 42-75 Automated blood lymphocytes/100 leukocytes 8 % 12-44 Blood monocytes/100 leukocytes 6 % 0-12 Automated blood eosinophils/100 leukocytes 0 % 0-10 Automated blood basophils/100 leukocytes 0 % 0-10 Blood neutrophils automated count (number/volume) 4.1 10*3 1.8-7.8 Blood lymphocytes automated count (number/volume) 0.4 10*3 1.0-4.0 Blood monocytes automated count (number/volume) 0. 3 10*3 0.0-1.0 Automated eosinophil count 0.0 10*3/uL 0 .0-0.3 Automated blood basophil count (count/volume) 0.0 10*3/uL 0.0-0.1 Capillary blood glucose measurement by g lucometer (mass/volume) - 05/29/18 04:21 Capillary blood glucose measurement by glucometer (mas s/volume) 84 mg/dL 70-110 Complete blood count (CBC) with automate d white blood cell (WBC) differential - 05/29/18 04:35 Blood leukocytes automated count (number/volume) 4.8 10*3/uL 4.3-11.0 Blood erythrocytes automated count (number/volume) 4.34 10*6/uL 4.35-5.85 Venous blood hemoglobin measurement (mass/volume) 12.2 g/dL 13.3-17.7 Blood hematocrit (volume fraction) 39 % 40-54 Automated erythrocyte mean corpuscular volume 89 [ foz_us] 80-99 Automated erythrocyte mean corpuscular h emoglobin (mass per erythrocyte) 28 pg 25-34 Automated erythrocyte mean corpuscular h emoglobin concentration measurement (mass/volume) 32 g/dL 32-36 Automated erythrocyte distribution width ratio 15. 8 % 10.0- 14.5 Automated blood platelet count (count/volume) 132 10*3/uL 130-400 Automated blood platelet mean volume measurement 11.3 [foz_us] 7.4-10.4 Automated blood neutrophils/100 leukocytes 86 % 42-75 Automated blood lymphocytes/100 leukocytes 8 % 12-44 Blood monocytes/100 leukocytes 6 % 0-12 Automated blood eosinophils/100 leukocytes 0 % 0-10 Automated blood basophils/100 leukocytes 0 % 0-10 Blood neutrophils automated count (number/volume) 4.1 10*3 1.8-7.8 Blood lymphocytes automated count (number/volume) 0.4 10*3 1.0-4.0 Blood monocytes automated count (number/volume) 0. 3 10*3 0.0-1.0 Automated eosinophil count 0.0 10*3/uL 0 .0-0.3 Automated blood basophil count (count/volume) 0.0 10*3/uL 0.0-0.1 Comprehensive metabolic panel - 05/29/18 04:35 Serum or plasma sodium measurement (moles/volume) 140 mmol/L 135-145 Serum or plasma potassium measurement (moles/volume) 4.0 mmol/L 3.6-5.0 Serum or plasma chloride measurement (moles/volume) 106 mmol/L 98-107 Carbon dioxide 24 mmol/L 21-32 Serum or plasma anion gap determination (moles/volume) 10 mmol/L 5-14 Serum or plasma urea nitrogen measurement (mass/volume ) 15 mg/dL 7-18 Serum or plasma creatinine measurement (mass/volume) 1.07 mg/dL 0.60-1.30 Serum or plasma urea nitrogen/creatinine mass ratio 14 NRG Serum or plasma creatinine measurement w ith calculation of estimated glomerular filtration rate > NRG Serum or plasma glucose measurement (mass/volume) 82 mg/dL 70-105 Serum or plasma calcium measurement (mass/volume) 8.8 mg/dL 8.5-10.1 Serum or plasma total bilirubin measurement (mass/volu me) 0.2 mg/dL 0.1-1.0 Serum or plasma alkaline phosphatase gilda surement (enzymatic activity/volume) 81 U/L 40-136 Serum or plasma aspartate aminotransfera se measurement (enzymatic activity/volume) 18 U/L 5-34 Serum or plasma alanine aminotransferase measurement (enzymatic activity/volume) 15 U/L 0-55 Serum or plasma protein measurement (mass/volume) 6.4 g/dL 6.4-8.2 Serum or plasma albumin measurement (mass/volume) 3.5 g/dL 3.2-4.5 CALCIUM CORRECTED 9.2 mg/dL 8.5-10.1 Capillary blood glucose measurement by g lucometer (mass/volume) - 05/29/18 13:06 Capillary blood glucose measurement by glucometer (mas s/volume) 138 mg/dL 70-110 Blood lactic acid measurement (moles/vol ume) - 05/29/18 16:56 Blood lactic acid measurement (moles/volume) 0.77 mmol/L 0.50-2.00 Complete blood count (CBC) with automate d white blood cell (WBC) differential - 05/29/18 16:56 Blood leukocytes automated count (number/volume) 4.3 10*3/uL 4.3-11.0 Blood erythrocytes automated count (number/volume) 3.89 10*6/uL 4.35-5.85 Venous blood hemoglobin measurement (mass/volume) 11.1 g/dL 13.3-17.7 Blood hematocrit (volume fraction) 35 % 40-54 Automated erythrocyte mean corpuscular volume 90 [ foz_us] 80-99 Automated erythrocyte mean corpuscular h emoglobin (mass per erythrocyte) 29 pg 25-34 Automated erythrocyte mean corpuscular h emoglobin concentration measurement (mass/volume) 32 g/dL 32-36 Automated erythrocyte distribution width ratio 15. 7 % 10.0- 14.5 Automated blood platelet count (count/volume) 127 10*3/uL 130-400 Automated blood platelet mean volume measurement 11.0 [foz_us] 7.4-10.4 Automated blood neutrophils/100 leukocytes 85 % 42-75 Automated blood lymphocytes/100 leukocytes 9 % 12-44 Blood monocytes/100 leukocytes 6 % 0-12 Automated blood eosinophils/100 leukocytes 0 % 0-10 Automated blood basophils/100 leukocytes 1 % 0-10 Blood neutrophils automated count (number/volume) 3.7 10*3 1.8-7.8 Blood lymphocytes automated count (number/volume) 0.4 10*3 1.0-4.0 Blood monocytes automated count (number/volume) 0. 3 10*3 0.0-1.0 Automated eosinophil count 0.0 10*3/uL 0 .0-0.3 Automated blood basophil count (count/volume) 0.0 10*3/uL 0.0-0.1 Comprehensive metabolic panel - 05/29/18 16:56 Serum or plasma sodium measurement (moles/volume) 137 mmol/L 135-145 Serum or plasma potassium measurement (moles/volume) 3.5 mmol/L 3.6-5.0 Serum or plasma chloride measurement (moles/volume) 106 mmol/L 98-107 Carbon dioxide 24 mmol/L 21-32 Serum or plasma anion gap determination (moles/volume) 7 mmol/L 5-14 Serum or plasma urea nitrogen measurement (mass/volume ) 17 mg/dL 7-18 Serum or plasma creatinine measurement (mass/volume) 1.07 mg/dL 0.60-1.30 Serum or plasma urea nitrogen/creatinine mass ratio 16 NRG Serum or plasma creatinine measurement w ith calculation of estimated glomerular filtration rate > NRG Serum or plasma glucose measurement (mass/volume) 107 mg/dL 70-105 Serum or plasma calcium measurement (mass/volume) 8.1 mg/dL 8.5-10.1 Serum or plasma total bilirubin measurement (mass/volu me) 0.2 mg/dL 0.1-1.0 Serum or plasma alkaline phosphatase gilda surement (enzymatic activity/volume) 65 U/L 40-136 Serum or plasma aspartate aminotransfera se measurement (enzymatic activity/volume) 19 U/L 5-34 Serum or plasma alanine aminotransferase measurement (enzymatic activity/volume) 13 U/L 0-55 Serum or plasma protein measurement (mass/volume) 5.3 g/dL 6.4-8.2 Serum or plasma albumin measurement (mass/volume) 3.0 g/dL 3.2-4.5 CALCIUM CORRECTED 8.9 mg/dL 8.5-10.1 Serum or plasma cortisol measurement (ma ss/volume) - 05/29/18 19:15 Cortisol PM 4.6 % 2.9-17.3 Capillary blood glucose measurement by g lucometer (mass/volume) - 05/29/18 20:32 Capillary blood glucose measurement by glucometer (mas s/volume) 117 mg/dL 70-110 Comprehensive metabolic panel - 05/30/18 03:40 Serum or plasma sodium measurement (moles/volume) 139 mmol/L 135-145 Serum or plasma potassium measurement (moles/volume) 4.5 mmol/L 3.6-5.0 Serum or plasma chloride measurement (moles/volume) 110 mmol/L 98-107 Carbon dioxide 20 mmol/L 21-32 Serum or plasma anion gap determination (moles/volume) 9 mmol/L 5-14 Serum or plasma urea nitrogen measurement (mass/volume ) 17 mg/dL 7-18 Serum or plasma creatinine measurement (mass/volume) 1.06 mg/dL 0.60-1.30 Serum or plasma urea nitrogen/creatinine mass ratio 16 NRG Serum or plasma creatinine measurement w ith calculation of estimated glomerular filtration rate > NRG Serum or plasma glucose measurement (mass/volume) 142 mg/dL 70-105 Serum or plasma calcium measurement (mass/volume) 8.3 mg/dL 8.5-10.1 Serum or plasma total bilirubin measurement (mass/volu me) 0.2 mg/dL 0.1-1.0 Serum or plasma alkaline phosphatase gilda surement (enzymatic activity/volume) 68 U/L 40-136 Serum or plasma aspartate aminotransfera se measurement (enzymatic activity/volume) 22 U/L 5-34 Serum or plasma alanine aminotransferase measurement (enzymatic activity/volume) 13 U/L 0-55 Serum or plasma protein measurement (mass/volume) 5.5 g/dL 6.4-8.2 Serum or plasma albumin measurement (mass/volume) 3.0 g/dL 3.2-4.5 CALCIUM CORRECTED 9.1 mg/dL 8.5-10.1 Capillary blood glucose measurement by g lucometer (mass/volume) - 05/30/18 05:19 Capillary blood glucose measurement by glucometer (mas s/volume) 158 mg/dL 70-110 Capillary blood glucose measurement by g lucometer (mass/volume) - 05/30/18 09:29 Capillary blood glucose measurement by glucometer (mas s/volume) 140 mg/dL 70-110 Capillary blood glucose measurement by g lucometer (mass/volume) - 05/30/18 14:34 Capillary blood glucose measurement by glucometer (mas s/volume) 133 mg/dL 70-110 Capillary blood glucose measurement by g lucometer (mass/volume) - 05/30/18 20:34 Capillary blood glucose measurement by glucometer (mas s/volume) 191 mg/dL 70-110 Capillary blood glucose measurement by g lucometer (mass/volume) - 05/31/18 05:27 Capillary blood glucose measurement by glucometer (mas s/volume) 122 mg/dL 70-110 Automated blood complete blood count (he mogram) panel - 05/31/18 06:45 Blood leukocytes automated count (number/volume) 3.8 10*3/uL 4.3-11.0 Blood erythrocytes automated count (number/volume) 4.41 10*6/uL 4.35-5.85 Venous blood hemoglobin measurement (mass/volume) 12.4 g/dL 13.3-17.7 Blood hematocrit (volume fraction) 38 % 40-54 Automated erythrocyte mean corpuscular volume 87 [ foz_us] 80-99 Automated erythrocyte mean corpuscular h emoglobin (mass per erythrocyte) 28 pg 25-34 Automated erythrocyte mean corpuscular h emoglobin concentration measurement (mass/volume) 32 g/dL 32-36 Automated erythrocyte distribution width ratio 15. 5 % 10.0- 14.5 Automated blood platelet count (count/volume) 151 10*3/uL 130-400 Automated blood platelet mean volume measurement 12.1 [foz_us] 7.4-10.4 Comprehensive metabolic panel - 05/31/18 06:45 Serum or plasma sodium measurement (moles/volume) 138 mmol/L 135-145 Serum or plasma potassium measurement (moles/volume) 4.4 mmol/L 3.6-5.0 Serum or plasma chloride measurement (moles/volume) 110 mmol/L 98-107 Carbon dioxide 19 mmol/L 21-32 Serum or plasma anion gap determination (moles/volume) 9 mmol/L 5-14 Serum or plasma urea nitrogen measurement (mass/volume ) 20 mg/dL 7-18 Serum or plasma creatinine measurement (mass/volume) 0.98 mg/dL 0.60-1.30 Serum or plasma urea nitrogen/creatinine mass ratio 20 NRG Serum or plasma creatinine measurement w ith calculation of estimated glomerular filtration rate > NRG Serum or plasma glucose measurement (mass/volume) 129 mg/dL 70-105 Serum or plasma calcium measurement (mass/volume) 8.6 mg/dL 8.5-10.1 Serum or plasma total bilirubin measurement (mass/volu me) 0.2 mg/dL 0.1-1.0 Serum or plasma alkaline phosphatase gilda surement (enzymatic activity/volume) 65 U/L 40-136 Serum or plasma aspartate aminotransfera se measurement (enzymatic activity/volume) 32 U/L 5-34 Serum or plasma alanine aminotransferase measurement (enzymatic activity/volume) 19 U/L 0-55 Serum or plasma protein measurement (mass/volume) 6.0 g/dL 6.4-8.2 Serum or plasma albumin measurement (mass/volume) 3.2 g/dL 3.2-4.5 CALCIUM CORRECTED 9.2 mg/dL 8.5-10.1 Magnesium - 05/31/18 06:45 Magnesium 1.8 mg/dL 1.8-2.4 Serum or plasma lithium measurement (mol es/volume) - 05/31/18 06:45 BNP level 115.3 pg/mL <100.0 Capillary blood glucose measurement by g lucometer (mass/volume) - 05/31/18 09:50 Capillary blood glucose measurement by glucometer (mas s/volume) 158 mg/dL 70-110 Capillary blood glucose measurement by g lucometer (mass/volume) - 05/31/18 17:34 Capillary blood glucose measurement by glucometer (mas s/volume) 151 mg/dL 70-110 Capillary blood glucose measurement by g lucometer (mass/volume) - 05/31/18 20:17 Capillary blood glucose measurement by glucometer (mas s/volume) 173 mg/dL 70-110 Comprehensive metabolic panel - 06/01/18 04:25 Serum or plasma sodium measurement (moles/volume) 141 mmol/L 135-145 Serum or plasma potassium measurement (moles/volume) 3.7 mmol/L 3.6-5.0 Serum or plasma chloride measurement (moles/volume) 109 mmol/L 98-107 Carbon dioxide 24 mmol/L 21-32 Serum or plasma anion gap determination (moles/volume) 8 mmol/L 5-14 Serum or plasma urea nitrogen measurement (mass/volume ) 25 mg/dL 7-18 Serum or plasma creatinine measurement (mass/volume) 1.11 mg/dL 0.60-1.30 Serum or plasma urea nitrogen/creatinine mass ratio 23 NRG Serum or plasma creatinine measurement w ith calculation of estimated glomerular filtration rate > NRG Serum or plasma glucose measurement (mass/volume) 106 mg/dL 70-105 Serum or plasma calcium measurement (mass/volume) 8.1 mg/dL 8.5-10.1 Serum or plasma total bilirubin measurement (mass/volu me) 0.2 mg/dL 0.1-1.0 Serum or plasma alkaline phosphatase gilda surement (enzymatic activity/volume) 67 U/L 40-136 Serum or plasma aspartate aminotransfera se measurement (enzymatic activity/volume) 47 U/L 5-34 Serum or plasma alanine aminotransferase measurement (enzymatic activity/volume) 40 U/L 0-55 Serum or plasma protein measurement (mass/volume) 5.4 g/dL 6.4-8.2 Serum or plasma albumin measurement (mass/volume) 3.0 g/dL 3.2-4.5 CALCIUM CORRECTED 8.9 mg/dL 8.5-10.1 Capillary blood glucose measurement by g lucometer (mass/volume) - 06/01/18 10:05 Capillary blood glucose measurement by glucometer (mas s/volume) 166 mg/dL 70-110 Capillary blood glucose measurement by g lucometer (mass/volume) - 06/01/18 15:57 Capillary blood glucose measurement by glucometer (mas s/volume) 158 mg/dL 70-110 Capillary blood glucose measurement by g lucometer (mass/volume) - 06/01/18 20:47 Capillary blood glucose measurement by glucometer (mas s/volume) 141 mg/dL 70-110 Comprehensive metabolic panel - 06/02/18 04:35 Serum or plasma sodium measurement (moles/volume) 144 mmol/L 135-145 Serum or plasma potassium measurement (moles/volume) 3.9 mmol/L 3.6-5.0 Serum or plasma chloride measurement (moles/volume) 111 mmol/L 98-107 Carbon dioxide 23 mmol/L 21-32 Serum or plasma anion gap determination (moles/volume) 10 mmol/L 5-14 Serum or plasma urea nitrogen measurement (mass/volume ) 19 mg/dL 7-18 Serum or plasma creatinine measurement (mass/volume) 1.05 mg/dL 0.60-1.30 Serum or plasma urea nitrogen/creatinine mass ratio 18 NRG Serum or plasma creatinine measurement w ith calculation of estimated glomerular filtration rate > NRG Serum or plasma glucose measurement (mass/volume) 95 mg/dL 70-105 Serum or plasma calcium measurement (mass/volume) 8.2 mg/dL 8.5-10.1 Serum or plasma total bilirubin measurement (mass/volu me) 0.3 mg/dL 0.1-1.0 Serum or plasma alkaline phosphatase gilda surement (enzymatic activity/volume) 77 U/L 40-136 Serum or plasma aspartate aminotransfera se measurement (enzymatic activity/volume) 60 U/L 5-34 Serum or plasma alanine aminotransferase measurement (enzymatic activity/volume) 76 U/L 0-55 Serum or plasma protein measurement (mass/volume) 5.3 g/dL 6.4-8.2 Serum or plasma albumin measurement (mass/volume) 3.0 g/dL 3.2-4.5 CALCIUM CORRECTED 9.0 mg/dL 8.5-10.1 Capillary blood glucose measurement by g lucometer (mass/volume) - 06/02/18 09:59 Capillary blood glucose measurement by glucometer (mas s/volume) 144 mg/dL 70-110 Complete blood count (CBC) with automate d white blood cell (WBC) differential - 07/11/18 10:30 Blood leukocytes automated count (number/volume) 10.2 10*3/uL 4.3-11.0 Blood erythrocytes automated count (number/volume) 4.46 10*6/uL 4.35-5.85 Venous blood hemoglobin measurement (mass/volume) 12.8 g/dL 13.3-17.7 Blood hematocrit (volume fraction) 41 % 40-54 Automated erythrocyte mean corpuscular volume 92 [ foz_us] 80-99 Automated erythrocyte mean corpuscular h emoglobin (mass per erythrocyte) 29 pg 25-34 Automated erythrocyte mean corpuscular h emoglobin concentration measurement (mass/volume) 31 g/dL 32-36 Automated erythrocyte distribution width ratio 16. 0 % 10.0- 14.5 Automated blood platelet count (count/volume) 211 10*3/uL 130-400 Automated blood platelet mean volume measurement 10.8 [foz_us] 7.4-10.4 Automated blood neutrophils/100 leukocytes 79 % 42-75 Automated blood lymphocytes/100 leukocytes 12 % 12-44 Blood monocytes/100 leukocytes 7 % 0-12 Automated blood eosinophils/100 leukocytes 1 % 0-10 Automated blood basophils/100 leukocytes 1 % 0-10 Blood neutrophils automated count (number/volume) 8.0 10*3 1.8-7.8 Blood lymphocytes automated count (number/volume) 1.2 10*3 1.0-4.0 Blood monocytes automated count (number/volume) 0. 8 10*3 0.0-1.0 Automated eosinophil count 0.1 10*3/uL 0 .0-0.3 Automated blood basophil count (count/volume) 0.1 10*3/uL 0.0-0.1 Whole blood basic metabolic panel - 05/27 10:30 Serum or plasma sodium measurement (moles/volume) 140 mmol/L 135-145 Serum or plasma potassium measurement (moles/volume) 4.4 mmol/L 3.6-5.0 Serum or plasma chloride measurement (moles/volume) 100 mmol/L 98-107 Carbon dioxide 28 mmol/L 21-32 Serum or plasma anion gap determination (moles/volume) 12 mmol/L 5-14 Serum or plasma urea nitrogen measurement (mass/volume ) 8 mg/dL 7-18 Serum or plasma creatinine measurement (mass/volume) 1.01 mg/dL 0.60-1.30 Serum or plasma urea nitrogen/creatinine mass ratio 8 NRG Serum or plasma creatinine measurement w ith calculation of estimated glomerular filtration rate > NRG Serum or plasma glucose measurement (mass/volume) 91 mg/dL 70-105 Serum or plasma calcium measurement (mass/volume) 9.2 mg/dL 8.5-10.1 Blood lactic acid measurement (moles/vol ume) - 09/03/18 08:47 Blood lactic acid measurement (moles/volume) 0.69 mmol/L 0.50-2.00 Complete blood count (CBC) with automate d white blood cell (WBC) differential - 09/03/18 08:47 Blood leukocytes automated count (number/volume) 11.4 10*3/uL 4.3-11.0 Blood erythrocytes automated count (number/volume) 4.81 10*6/uL 4.35-5.85 Venous blood hemoglobin measurement (mass/volume) 13.9 g/dL 13.3-17.7 Blood hematocrit (volume fraction) 44 % 40-54 Automated erythrocyte mean corpuscular volume 92 [ foz_us] 80-99 Automated erythrocyte mean corpuscular h emoglobin (mass per erythrocyte) 29 pg 25-34 Automated erythrocyte mean corpuscular h emoglobin concentration measurement (mass/volume) 31 g/dL 32-36 Automated erythrocyte distribution width ratio 14. 7 % 10.0- 14.5 Automated blood platelet count (count/volume) 173 10*3/uL 130-400 Automated blood platelet mean volume measurement 11.8 [foz_us] 7.4-10.4 Automated blood neutrophils/100 leukocytes 91 % 42-75 Automated blood lymphocytes/100 leukocytes 3 % 12-44 Blood monocytes/100 leukocytes 4 % 0-12 Automated blood eosinophils/100 leukocytes 0 % 0-10 Automated blood basophils/100 leukocytes 0 % 0-10 Blood neutrophils automated count (number/volume) 10.5 10*3 1.8-7.8 Blood lymphocytes automated count (number/volume) 0.4 10*3 1.0-4.0 Blood monocytes automated count (number/volume) 0. 5 10*3 0.0-1.0 Automated eosinophil count 0.0 10*3/uL 0 .0-0.3 Automated blood basophil count (count/volume) 0.0 10*3/uL 0.0-0.1 Manual absolute plasma cell count - 08/10 08/27 08:47 Blood monocytes/100 leukocytes 2 % NRG Manual blood segmented neutrophils/100 leukocytes 48 % NRG Blood band neutrophils/100 leukocytes 45 % NRG Manual blood lymphocytes/100 leukocytes 5 % NRG Blood erythrocyte morphology finding identification NORMAL NRG Comprehensive metabolic panel - 09/03/18 08:47 Serum or plasma sodium measurement (moles/volume) 136 mmol/L 135-145 Serum or plasma potassium measurement (moles/volume) 5.0 mmol/L 3.6-5.0 Serum or plasma chloride measurement (moles/volume) 95 mmol/L 98-107 Carbon dioxide 30 mmol/L 21-32 Serum or plasma anion gap determination (moles/volume) 11 mmol/L 5-14 Serum or plasma urea nitrogen measurement (mass/volume ) 26 mg/dL 7-18 Serum or plasma creatinine measurement (mass/volume) 1.67 mg/dL 0.60-1.30 Serum or plasma urea nitrogen/creatinine mass ratio 16 NRG Serum or plasma creatinine measurement w ith calculation of estimated glomerular filtration rate 41 NRG Serum or plasma glucose measurement (mass/volume) 119 mg/dL 70-105 Serum or plasma calcium measurement (mass/volume) 8.9 mg/dL 8.5-10.1 Serum or plasma total bilirubin measurement (mass/volu me) 0.6 mg/dL 0.1-1.0 Serum or plasma alkaline phosphatase gilda surement (enzymatic activity/volume) 83 U/L 40-136 Serum or plasma aspartate aminotransfera se measurement (enzymatic activity/volume) 18 U/L 5-34 Serum or plasma alanine aminotransferase measurement (enzymatic activity/volume) 8 U/L 0-55 Serum or plasma protein measurement (mass/volume) 6.5 g/dL 6.4-8.2 Serum or plasma albumin measurement (mass/volume) 3.7 g/dL 3.2-4.5 CALCIUM CORRECTED 9.1 mg/dL 8.5-10.1 Magnesium - 09/03/18 08:47 Magnesium 1.7 mg/dL 1.8-2.4 TROPONIN T - 09/03/18 08:47 TROPONIN T 30 % <=15 PROBNP FS - 09/03/18 08:47 PROBNP FS 263.5 pg/mL <75.0 Lipase - 09/03/18 08:47 Lipase 12 U/L 8-78 PT panel in platelet poor plasma by coag ulation assay - 09/03/18 08:47 Prothrombin time (PT) in platelet poor plasma by coagu lation assay 17.5 s 12.2-14.7 INR in platelet poor plasma or blood by coagulation as say 1.4 0.8-1.4 Activated partial thromboplastin time (a PTT) in platelet poor plasma bycoagulation assay - 09/03/18 08:47 Activated partial thromboplastin time (a PTT) in platelet poor plasma bycoagulation assay 35 s 24-35 Fibrin D-dimer FEU measurement in platel et poor plasma (mass/volume) - 09/03/18 08:47 Fibrin D-dimer FEU measurement in platelet poor plasma (mass/volume) 1.77 ug/mL 0.00-0.49 Bacterial blood culture - 09/03/18 08:47 FREE TEXT EXTERNAL NO SUSCEPTIBILITY PERFORMED NR QUANTITY OF GROWTH Isolated NR Bacterial blood culture [id number] NR FREE TEXT ENTRY 2 TESTING IN PROGRESS N FREE TEXT ENTRY 3 RML REPORTED ID 09/05/18 14:05 NRG Bacterial blood culture - 09/03/18 08:57 FREE TEXT EXTERNAL SUSCEPTIBILITY REPORTED 09-06-18 , 5. NR QUANTITY OF GROWTH Isolated NR Bacterial blood culture [id number] NR FREE TEXT ENTRY 2 RML REPORTED ID 09/05/18 14:05 NR FREE TEXT ENTRY 3 CLINDAMYCIN RESISTANT WITHOUT IN DUCTION NR RML [facility] - 09/03/18 08:5 7 Oxacillin susceptibility test by minimum inhibitory co ncentration > NRG Clindamycin susceptibility test by minimum inhibitory concentration > NRG Erythromycin susceptibility test by minimum inhibitory concentration > NRG Vancomycin susceptibility test by minimum inhibitory c oncentration 2 NRG Levofloxacin susceptibility test by minimum inhibitory concentration > NRG Rifampin susceptibility test by minimum inhibitory con centration <= NRG Cefazolin susceptibility test by minimum inhibitory co ncentration > NRG Linezolid susceptibility test by minimum inhibitory co ncentration <= NRG Penicillin G susceptibility test by minimum inhibitory concentration > NRG Moxifloxacin susceptibility test by minimum inhibitory concentration 2 NRG Minocycline susc DAVID <= NRG Arterial blood gas measurement - 9 09:09 Blood pCO2 77 mm[Hg] 35-45 Blood pO2 51 mm[Hg] 79-93 Arterial blood bicarbonate measurement (moles/volume) 35 mmol/L 23-27 Arterial blood base excess by calculation 5.2 mmol /L -2.5-2.5 Arterial blood oxygen saturation measurement 80 % 94-100 * Inhaled oxygen flow rate NA NRG Arterial blood pH measurement with patient temperature correction 7.26 7.37-7.43 Arterial blood carbon dioxide, total measurement (mole s/volume) 37.0 mmol/L 21.0-31.0 Body site LEFT AC NRG Assessment of wrist artery patency prior to arterial p uncture NA NRG Setting of ventilation mode NA NR G Measurement of body temperature 99.1 NRG Complete urinalysis with reflex to cultu re - 09/03/18 11:09 Urine color determination YELLOW NRG Urine clarity determination CLEAR NR G Urine pH measurement by test strip 6.5 5-9 Specific gravity of urine by test strip 1.010 1.016-1.022 Urine protein assay by test strip, semi-quantitative NEGATIVE NEGATIVE Urine glucose detection by automated test strip NE GATIVE NEGATIVE Erythrocytes detection in urine sediment by light micr oscopy NEGATIVE NEGATIVE Urine ketones detection by automated test strip NE GATIVE NEGATIVE Urine nitrite detection by test strip NEGATIVE NEGATIVE Urine total bilirubin detection by test strip NEGA TIVE NEGATIVE Urine urobilinogen measurement by automated test strip (mass/volume) 0.2 mg/dL NORMAL Urine leukocyte esterase detection by dipstick NEG ATIVE NEGATIVE Automated urine sediment erythrocyte cou nt by microscopy (number/high power field) RARE NRG Automated urine sediment leukocyte count by microscopy (number/high power field) [HPF] NRG Bacteria detection in urine sediment by light microsco py NEGATIVE NRG Squamous epithelial cells detection in u rine sediment by light microscopy 2-5 NRG Crystals detection in urine sediment by light microsco py NONE NRG Casts detection in urine sediment by light microscopy PRESENT NRG Mucus detection in urine sediment by light microscopy NEGATIVE NRG Complete urinalysis with reflex to culture NO NRG Hyaline casts detection in urine sediment by light david roscopy 2-5 NRG Methicillin resistant Staphylococcus aur eus (MRSA) screening culture - 09/03/18 12:15 Methicillin resistant Staphylococcus aureus (MRSA) scr eening culture NEG NRG Serum or plasma triglyceride measurement (mass/volume) - 09/03/18 12:52 Serum or plasma triglyceride measurement (mass/volume) 146 mg/dL <150 Arterial blood gas measurement - 9 15:10 Blood pCO2 47 mm[Hg] 35-45 Blood pO2 174 mm[Hg] 79-93 Arterial blood bicarbonate measurement (moles/volume) 24 mmol/L 23-27 Arterial blood base excess by calculation -0.9 mmo l/L -2.5-2.5 Arterial blood oxygen saturation measurement 100 % 94-100 * Inhaled oxygen flow rate 60% NRG Arterial blood pH measurement with patient temperature correction 7.33 7.37-7.43 Arterial blood carbon dioxide, total measurement (mole s/volume) 25.9 mmol/L 21.0-31.0 Body site LEFT RADIAL NRG Assessment of wrist artery patency prior to arterial p uncture POSITIVE NRG Setting of ventilation mode YES NR G Measurement of body temperature 96.8 NRG Capillary blood glucose measurement by g lucometer (mass/volume) - 09/03/18 17:42 Capillary blood glucose measurement by glucometer (mas s/volume) 123 mg/dL 70-110 Capillary blood glucose measurement by g lucometer (mass/volume) - 09/04/18 00:00 Capillary blood glucose measurement by glucometer (mas s/volume) 144 mg/dL 70-110 Venous blood hemoglobin measurement (mas s/volume) - 09/04/18 00:45 Venous blood hemoglobin measurement (mass/volume) 12.1 g/dL 13.3-17.7 Serum or plasma potassium measurement (m oles/volume) - 09/04/18 00:45 Serum or plasma potassium measurement (moles/volume) 3.9 mmol/L 3.6-5.0 Magnesium - 09/04/18 00:45 Magnesium 1.3 mg/dL 1.8-2.4 Serum or plasma troponin i.cardiac measu rement (mass/volume) - 09/04/18 00:45 Serum or plasma troponin i.cardiac measurement (mass/v olume) 0.028 ng/mL <0.028 Blood lactic acid measurement (moles/vol ume) - 09/04/18 00:45 Blood lactic acid measurement (moles/volume) 1.02 mmol/L 0.50-2.00 Serum or plasma albumin measurement (mas s/volume) - 09/04/18 00:45 Serum or plasma albumin measurement (mass/volume) 2.8 g/dL 3.2-4.5 Complete blood count (CBC) with automate d white blood cell (WBC) differential - 09/04/18 00:45 Blood leukocytes automated count (number/volume) 7.6 10*3/uL 4.3-11.0 Blood erythrocytes automated count (number/volume) 4.27 10*6/uL 4.35-5.85 Venous blood hemoglobin measurement (mass/volume) 12.2 g/dL 13.3-17.7 Blood hematocrit (volume fraction) 39 % 40-54 Automated erythrocyte mean corpuscular volume 90 [ foz_us] 80-99 Automated erythrocyte mean corpuscular h emoglobin (mass per erythrocyte) 29 pg 25-34 Automated erythrocyte mean corpuscular h emoglobin concentration measurement (mass/volume) 32 g/dL 32-36 Automated erythrocyte distribution width ratio 15. 0 % 10.0- 14.5 Automated blood platelet count (count/volume) 134 10*3/uL 130-400 Automated blood platelet mean volume measurement 12.6 [foz_us] 7.4-10.4 Automated blood neutrophils/100 leukocytes 96 % 42-75 Automated blood lymphocytes/100 leukocytes 2 % 12-44 Blood monocytes/100 leukocytes 2 % 0-12 Automated blood eosinophils/100 leukocytes 0 % 0-10 Automated blood basophils/100 leukocytes 0 % 0-10 Blood neutrophils automated count (number/volume) 7.3 10*3 1.8-7.8 Blood lymphocytes automated count (number/volume) 0.1 10*3 1.0-4.0 Blood monocytes automated count (number/volume) 0. 2 10*3 0.0-1.0 Automated eosinophil count 0.0 10*3/uL 0 .0-0.3 Automated blood basophil count (count/volume) 0.0 10*3/uL 0.0-0.1 Whole blood basic metabolic panel - 08/10 09/26 00:45 Serum or plasma sodium measurement (moles/volume) 141 mmol/L 135-145 Serum or plasma potassium measurement (moles/volume) 4.0 mmol/L 3.6-5.0 Serum or plasma chloride measurement (moles/volume) 107 mmol/L 98-107 Carbon dioxide 20 mmol/L 21-32 Serum or plasma anion gap determination (moles/volume) 14 mmol/L 5-14 Serum or plasma urea nitrogen measurement (mass/volume ) 23 mg/dL 7-18 Serum or plasma creatinine measurement (mass/volume) 1.18 mg/dL 0.60-1.30 Serum or plasma urea nitrogen/creatinine mass ratio 19 NRG Serum or plasma creatinine measurement w ith calculation of estimated glomerular filtration rate > NRG Serum or plasma glucose measurement (mass/volume) 143 mg/dL 70-105 Serum or plasma calcium measurement (mass/volume) 7.9 mg/dL 8.5-10.1 Serum or plasma phosphate measurement (m ass/volume) - 09/04/18 00:45 Serum or plasma phosphate measurement (mass/volume) 3.9 mg/dL 2.3-4.7 Magnesium - 09/04/18 00:45 Magnesium 1.4 mg/dL 1.8-2.4 IONIZED CALCIUM (SEND OFF) - 09/04/18 00 :45 Blood ionized calcium measurement (mass/volume) 1. 08 % 1.16- 1.32 Venous blood ionized calcium measurement adjusted to pH 7.4 (moles/volume) 1.06 % 1.16-1.32 pH measurement 7.37 NR Sputum Gram stain - 09/04/18 01:18 Sputum Gram stain Mixed Bacterial Kellen [facility] Bacterial sputum culture - 09/04/18 01:1 8 QUANTITY OF GROWTH Moderate Growth [facility] Bacterial sputum culture [id number] [facility] Dirithromycin susceptibility test by dis k diffusion - 09/04/18 01:18 Gentamicin susceptibility test by minimum inhibitory c oncentration <= NRG Trimethoprim/sulfamethoxazole susceptibi lity test by minimum inhibitoryconcentration <= NRG Levofloxacin susceptibility test by minimum inhibitory concentration <= NRG Ampicillin susceptibility test by minimum inhibitory c oncentration R NRG Cefazolin susceptibility test by minimum inhibitory co ncentration <= NRG Ceftriaxone susceptibility test by minimum inhibitory concentration <= NRG Piperacillin/tazobactam susceptibility t est by minimum inhibitory concentration = NRG Ciprofloxacin susceptibility test by minimum inhibitor y concentration <= NRG Meropenem susceptibility test by minimum inhibitory co ncentration <= NRG Amoxicillin and clavulanate potassium susc DAVID <= NRG Imipenem susceptibility test by minimum inhibitory con centration 0.5 NRG Dirithromycin susceptibility test by dis k diffusion - 09/04/18 01:18 Gentamicin susceptibility test by minimum inhibitory c oncentration <= NRG Trimethoprim/sulfamethoxazole susceptibi lity test by minimum inhibitoryconcentration S NRG Levofloxacin susceptibility test by minimum inhibitory concentration <= NRG Ampicillin susceptibility test by minimum inhibitory c oncentration > NRG Cefazolin susceptibility test by minimum inhibitory co ncentration > NRG Ceftriaxone susceptibility test by minimum inhibitory concentration <= NRG Piperacillin/tazobactam susceptibility t est by minimum inhibitory concentration = NRG Ciprofloxacin susceptibility test by minimum inhibitor y concentration <= NRG Meropenem susceptibility test by minimum inhibitory co ncentration <= NRG Amoxicillin and clavulanate potassium susc DAVID > NRG Imipenem susceptibility test by minimum inhibitory con centration 1 NRG Dirithromycin susceptibility test by dis k diffusion - 09/04/18 01:18 Gentamicin susceptibility test by minimum inhibitory c oncentration <= NRG Trimethoprim/sulfamethoxazole susceptibi lity test by minimum inhibitoryconcentration > NRG Levofloxacin susceptibility test by minimum inhibitory concentration > NRG Ampicillin susceptibility test by minimum inhibitory c oncentration > NRG Cefazolin susceptibility test by minimum inhibitory co ncentration 4 NRG Ceftriaxone susceptibility test by minimum inhibitory concentration <= NRG Piperacillin/tazobactam susceptibility t est by minimum inhibitory concentration <= NRG Ciprofloxacin susceptibility test by minimum inhibitor y concentration > NRG Amoxicillin and clavulanate potassium susc DAVID = NRG Arterial blood gas measurement - 9 01:26 Blood pCO2 53 mm[Hg] 35-45 Blood pO2 73 mm[Hg] 79-93 Arterial blood bicarbonate measurement (moles/volume) 23 mmol/L 23-27 Arterial blood base excess by calculation -3.2 mmo l/L -2.5-2.5 Arterial blood oxygen saturation measurement 95 % 94-100 * Inhaled oxygen flow rate 40% NRG Arterial blood pH measurement with patient temperature correction 7.25 7.37-7.43 Arterial blood carbon dioxide, total measurement (mole s/volume) 25.1 mmol/L 21.0-31.0 Body site L BRACH NRG Assessment of wrist artery patency prior to arterial p uncture YES-POS NRG Setting of ventilation mode YES NR G Measurement of body temperature 95.3 NRG Methicillin resistant Staphylococcus aur eus (MRSA) screening culture - 09/04/18 03:30 Methicillin resistant Staphylococcus aureus (MRSA) scr eening culture NEG NRG Arterial blood gas measurement - 9 05:00 Blood pCO2 43 mm[Hg] 35-45 Blood pO2 59 mm[Hg] 79-93 Arterial blood bicarbonate measurement (moles/volume) 24 mmol/L 23-27 Arterial blood base excess by calculation -1.2 mmo l/L -2.5-2.5 Arterial blood oxygen saturation measurement 93 % 94-100 * Inhaled oxygen flow rate 40% NRG Arterial blood pH measurement with patient temperature correction 7.35 7.37-7.43 Arterial blood carbon dioxide, total measurement (mole s/volume) 25.2 mmol/L 21.0-31.0 Body site L BRACH NRG Assessment of wrist artery patency prior to arterial p uncture YES-POS NRG Setting of ventilation mode YES NR G Measurement of body temperature 96.3 NRG Arterial blood gas measurement - 9 07:59 Blood pCO2 41 mm[Hg] 35-45 Blood pO2 190 mm[Hg] 79-93 Arterial blood bicarbonate measurement (moles/volume) 21 mmol/L 23-27 Arterial blood base excess by calculation -3.8 mmo l/L -2.5-2.5 Arterial blood oxygen saturation measurement 100 % 94-100 * Inhaled oxygen flow rate 30% NRG Arterial blood pH measurement with patient temperature correction 7.33 7.37-7.43 Arterial blood carbon dioxide, total measurement (mole s/volume) 22.5 mmol/L 21.0-31.0 Body site LEFT RADIAL NRG Assessment of wrist artery patency prior to arterial p uncture POSITIVE NRG Setting of ventilation mode YES NR G Measurement of body temperature 97.4 NRG Capillary blood glucose measurement by g lucometer (mass/volume) - 09/04/18 11:53 Capillary blood glucose measurement by glucometer (mas s/volume) 147 mg/dL 70-110 Capillary blood glucose measurement by g lucometer (mass/volume) - 09/04/18 17:40 Capillary blood glucose measurement by glucometer (mas s/volume) 138 mg/dL 70-110 Complete blood count (CBC) with automate d white blood cell (WBC) differential - 09/05/18 02:50 Blood leukocytes automated count (number/volume) 7.3 10*3/uL 4.3-11.0 Blood erythrocytes automated count (number/volume) 4.04 10*6/uL 4.35-5.85 Venous blood hemoglobin measurement (mass/volume) 11.5 g/dL 13.3-17.7 Blood hematocrit (volume fraction) 35 % 40-54 Automated erythrocyte mean corpuscular volume 88 [ foz_us] 80-99 Automated erythrocyte mean corpuscular h emoglobin (mass per erythrocyte) 28 pg 25-34 Automated erythrocyte mean corpuscular h emoglobin concentration measurement (mass/volume) 33 g/dL 32-36 Automated erythrocyte distribution width ratio 15. 4 % 10.0- 14.5 Automated blood platelet count (count/volume) 154 10*3/uL 130-400 Automated blood platelet mean volume measurement 12.0 [foz_us] 7.4-10.4 Automated blood neutrophils/100 leukocytes 95 % 42-75 Automated blood lymphocytes/100 leukocytes 2 % 12-44 Blood monocytes/100 leukocytes 3 % 0-12 Automated blood eosinophils/100 leukocytes 0 % 0-10 Automated blood basophils/100 leukocytes 0 % 0-10 Blood neutrophils automated count (number/volume) 6.9 10*3 1.8-7.8 Blood lymphocytes automated count (number/volume) 0.2 10*3 1.0-4.0 Blood monocytes automated count (number/volume) 0. 2 10*3 0.0-1.0 Automated eosinophil count 0.0 10*3/uL 0 .0-0.3 Automated blood basophil count (count/volume) 0.0 10*3/uL 0.0-0.1 Whole blood basic metabolic panel - 08/10 10/27 02:50 Serum or plasma sodium measurement (moles/volume) 142 mmol/L 135-145 Serum or plasma potassium measurement (moles/volume) 3.2 mmol/L 3.6-5.0 Serum or plasma chloride measurement (moles/volume) 109 mmol/L 98-107 Carbon dioxide 23 mmol/L 21-32 Serum or plasma anion gap determination (moles/volume) 10 mmol/L 5-14 Serum or plasma urea nitrogen measurement (mass/volume ) 22 mg/dL 7-18 Serum or plasma creatinine measurement (mass/volume) 0.89 mg/dL 0.60-1.30 Serum or plasma urea nitrogen/creatinine mass ratio 25 NRG Serum or plasma creatinine measurement w ith calculation of estimated glomerular filtration rate > NRG Serum or plasma glucose measurement (mass/volume) 143 mg/dL 70-105 Serum or plasma calcium measurement (mass/volume) 8.1 mg/dL 8.5-10.1 Serum or plasma phosphate measurement (m ass/volume) - 09/05/18 02:50 Serum or plasma phosphate measurement (mass/volume) 2.3 mg/dL 2.3-4.7 Magnesium - 09/05/18 02:50 Magnesium 2.0 mg/dL 1.8-2.4 Serum or plasma triglyceride measurement (mass/volume) - 09/05/18 03:25 Serum or plasma triglyceride measurement (mass/volume) 79 mg/dL <150 Complete blood count (CBC) with automate d white blood cell (WBC) differential - 09/06/18 03:00 Blood leukocytes automated count (number/volume) 9.5 10*3/uL 4.3-11.0 Blood erythrocytes automated count (number/volume) 4.18 10*6/uL 4.35-5.85 Venous blood hemoglobin measurement (mass/volume) 11.8 g/dL 13.3-17.7 Blood hematocrit (volume fraction) 37 % 40-54 Automated erythrocyte mean corpuscular volume 87 [ foz_us] 80-99 Automated erythrocyte mean corpuscular h emoglobin (mass per erythrocyte) 28 pg 25-34 Automated erythrocyte mean corpuscular h emoglobin concentration measurement (mass/volume) 32 g/dL 32-36 Automated erythrocyte distribution width ratio 15. 3 % 10.0- 14.5 Automated blood platelet count (count/volume) 140 10*3/uL 130-400 Automated blood platelet mean volume measurement 11.8 [foz_us] 7.4-10.4 Automated blood neutrophils/100 leukocytes 96 % 42-75 Automated blood lymphocytes/100 leukocytes 2 % 12-44 Blood monocytes/100 leukocytes 2 % 0-12 Automated blood eosinophils/100 leukocytes 0 % 0-10 Automated blood basophils/100 leukocytes 0 % 0-10 Blood neutrophils automated count (number/volume) 9.1 10*3 1.8-7.8 Blood lymphocytes automated count (number/volume) 0.2 10*3 1.0-4.0 Blood monocytes automated count (number/volume) 0. 2 10*3 0.0-1.0 Automated eosinophil count 0.0 10*3/uL 0 .0-0.3 Automated blood basophil count (count/volume) 0.0 10*3/uL 0.0-0.1 Whole blood basic metabolic panel - 08/10 11/27 03:00 Serum or plasma sodium measurement (moles/volume) 141 mmol/L 135-145 Serum or plasma potassium measurement (moles/volume) 3.0 mmol/L 3.6-5.0 Serum or plasma chloride measurement (moles/volume) 106 mmol/L 98-107 Carbon dioxide 24 mmol/L 21-32 Serum or plasma anion gap determination (moles/volume) 11 mmol/L 5-14 Serum or plasma urea nitrogen measurement (mass/volume ) 21 mg/dL 7-18 Serum or plasma creatinine measurement (mass/volume) 0.91 mg/dL 0.60-1.30 Serum or plasma urea nitrogen/creatinine mass ratio 23 NRG Serum or plasma creatinine measurement w ith calculation of estimated glomerular filtration rate > NRG Serum or plasma glucose measurement (mass/volume) 158 mg/dL 70-105 Serum or plasma calcium measurement (mass/volume) 8.4 mg/dL 8.5-10.1 Serum or plasma phosphate measurement (m ass/volume) - 09/06/18 03:00 Serum or plasma phosphate measurement (mass/volume) 1.8 mg/dL 2.3-4.7 Magnesium - 09/06/18 03:00 Magnesium 1.6 mg/dL 1.8-2.4 Complete blood count (CBC) with automate d white blood cell (WBC) differential - 09/07/18 06:00 Blood leukocytes automated count (number/volume) 5.9 10*3/uL 4.3-11.0 Blood erythrocytes automated count (number/volume) 4.20 10*6/uL 4.35-5.85 Venous blood hemoglobin measurement (mass/volume) 11.9 g/dL 13.3-17.7 Blood hematocrit (volume fraction) 37 % 40-54 Automated erythrocyte mean corpuscular volume 88 [ foz_us] 80-99 Automated erythrocyte mean corpuscular h emoglobin (mass per erythrocyte) 28 pg 25-34 Automated erythrocyte mean corpuscular h emoglobin concentration measurement (mass/volume) 32 g/dL 32-36 Automated erythrocyte distribution width ratio 15. 4 % 10.0- 14.5 Automated blood platelet count (count/volume) 122 10*3/uL 130-400 Automated blood platelet mean volume measurement 10.8 [foz_us] 7.4-10.4 Automated blood neutrophils/100 leukocytes 92 % 42-75 Automated blood lymphocytes/100 leukocytes 4 % 12-44 Blood monocytes/100 leukocytes 4 % 0-12 Automated blood eosinophils/100 leukocytes 0 % 0-10 Automated blood basophils/100 leukocytes 0 % 0-10 Blood neutrophils automated count (number/volume) 5.4 10*3 1.8-7.8 Blood lymphocytes automated count (number/volume) 0.2 10*3 1.0-4.0 Blood monocytes automated count (number/volume) 0. 3 10*3 0.0-1.0 Automated eosinophil count 0.0 10*3/uL 0 .0-0.3 Automated blood basophil count (count/volume) 0.0 10*3/uL 0.0-0.1 Whole blood basic metabolic panel - 08/11 06:00 Serum or plasma sodium measurement (moles/volume) 142 mmol/L 135-145 Serum or plasma potassium measurement (moles/volume) 3.0 mmol/L 3.6-5.0 Serum or plasma chloride measurement (moles/volume) 102 mmol/L 98-107 Carbon dioxide 32 mmol/L 21-32 Serum or plasma anion gap determination (moles/volume) 8 mmol/L 5-14 Serum or plasma urea nitrogen measurement (mass/volume ) 20 mg/dL 7-18 Serum or plasma creatinine measurement (mass/volume) 0.87 mg/dL 0.60-1.30 Serum or plasma urea nitrogen/creatinine mass ratio 23 NRG Serum or plasma creatinine measurement w ith calculation of estimated glomerular filtration rate > NRG Serum or plasma glucose measurement (mass/volume) 166 mg/dL 70-105 Serum or plasma calcium measurement (mass/volume) 8.3 mg/dL 8.5-10.1 Serum or plasma phosphate measurement (m ass/volume) - 09/07/18 06:00 Serum or plasma phosphate measurement (mass/volume) 1.9 mg/dL 2.3-4.7 Magnesium - 09/07/18 06:00 Magnesium 1.7 mg/dL 1.8-2.4 Serum or plasma triglyceride measurement (mass/volume) - 09/07/18 06:00 Serum or plasma triglyceride measurement (mass/volume) 98 mg/dL <150 Complete blood count (CBC) with automate d white blood cell (WBC) differential - 09/08/18 05:45 Blood leukocytes automated count (number/volume) 7.3 10*3/uL 4.3-11.0 Blood erythrocytes automated count (number/volume) 4.42 10*6/uL 4.35-5.85 Venous blood hemoglobin measurement (mass/volume) 12.5 g/dL 13.3-17.7 Blood hematocrit (volume fraction) 39 % 40-54 Automated erythrocyte mean corpuscular volume 88 [ foz_us] 80-99 Automated erythrocyte mean corpuscular h emoglobin (mass per erythrocyte) 28 pg 25-34 Automated erythrocyte mean corpuscular h emoglobin concentration measurement (mass/volume) 32 g/dL 32-36 Automated erythrocyte distribution width ratio 15. 1 % 10.0- 14.5 Automated blood platelet count (count/volume) 132 10*3/uL 130-400 Automated blood platelet mean volume measurement 11.2 [foz_us] 7.4-10.4 Automated blood neutrophils/100 leukocytes 89 % 42-75 Automated blood lymphocytes/100 leukocytes 4 % 12-44 Blood monocytes/100 leukocytes 7 % 0-12 Automated blood eosinophils/100 leukocytes 0 % 0-10 Automated blood basophils/100 leukocytes 0 % 0-10 Blood neutrophils automated count (number/volume) 6.4 10*3 1.8-7.8 Blood lymphocytes automated count (number/volume) 0.3 10*3 1.0-4.0 Blood monocytes automated count (number/volume) 0. 5 10*3 0.0-1.0 Automated eosinophil count 0.0 10*3/uL 0 .0-0.3 Automated blood basophil count (count/volume) 0.0 10*3/uL 0.0-0.1 Whole blood basic metabolic panel - 03/29 05:45 Serum or plasma sodium measurement (moles/volume) 142 mmol/L 135-145 Serum or plasma potassium measurement (moles/volume) 3.4 mmol/L 3.6-5.0 Serum or plasma chloride measurement (moles/volume) 101 mmol/L 98-107 Carbon dioxide 30 mmol/L 21-32 Serum or plasma anion gap determination (moles/volume) 11 mmol/L 5-14 Serum or plasma urea nitrogen measurement (mass/volume ) 21 mg/dL 7-18 Serum or plasma creatinine measurement (mass/volume) 1.00 mg/dL 0.60-1.30 Serum or plasma urea nitrogen/creatinine mass ratio 21 NRG Serum or plasma creatinine measurement w ith calculation of estimated glomerular filtration rate > NRG Serum or plasma glucose measurement (mass/volume) 177 mg/dL 70-105 Serum or plasma calcium measurement (mass/volume) 8.3 mg/dL 8.5-10.1 Magnesium - 09/08/18 05:45 Magnesium 1.4 mg/dL 1.8-2.4 Comprehensive metabolic panel - 12/04/18 15:45 Serum or plasma sodium measurement (moles/volume) 142 mmol/L 135-145 Serum or plasma potassium measurement (moles/volume) 4.8 mmol/L 3.6-5.0 Serum or plasma chloride measurement (moles/volume) 103 mmol/L 98-107 Carbon dioxide 26 mmol/L -32 Serum or plasma anion gap determination (moles/volume) 13 mmol/L 5-14 Serum or plasma urea nitrogen measurement (mass/volume ) 10 mg/dL 7-18 Serum or plasma creatinine measurement (mass/volume) 0.94 mg/dL 0.60-1.30 Serum or plasma urea nitrogen/creatinine mass ratio 11 NRG Serum or plasma creatinine measurement w ith calculation of estimated glomerular filtration rate > NRG Serum or plasma glucose measurement (mass/volume) 85 mg/dL 70-105 Serum or plasma calcium measurement (mass/volume) 9.4 mg/dL 8.5-10.1 Serum or plasma total bilirubin measurement (mass/volu me) 0.3 mg/dL 0.1-1.0 Serum or plasma alkaline phosphatase gilda surement (enzymatic activity/volume) 81 U/L 40-136 Serum or plasma aspartate aminotransfera se measurement (enzymatic activity/volume) 25 U/L 5-34 Serum or plasma alanine aminotransferase measurement (enzymatic activity/volume) 12 U/L 0-55 Serum or plasma protein measurement (mass/volume) 6.8 g/dL 6.4-8.2 Serum or plasma albumin measurement (mass/volume) 3.7 g/dL 3.2-4.5 CALCIUM CORRECTED 9.6 mg/dL 8.5-10.1 Complete blood count (CBC) with automate d white blood cell (WBC) differential - 12/04/18 15:45 Blood leukocytes automated count (number/volume) 8.4 10*3/uL 4.3-11.0 Blood erythrocytes automated count (number/volume) 4.89 10*6/uL 4.35-5.85 Venous blood hemoglobin measurement (mass/volume) 14.1 g/dL 13.3-17.7 Blood hematocrit (volume fraction) 45 % 40-54 Automated erythrocyte mean corpuscular volume 92 [ foz_us] 80-99 Automated erythrocyte mean corpuscular h emoglobin (mass per erythrocyte) 29 pg 25-34 Automated erythrocyte mean corpuscular h emoglobin concentration measurement (mass/volume) 32 g/dL 32-36 Automated erythrocyte distribution width ratio 15. 8 % 10.0- 14.5 Automated blood platelet count (count/volume) 170 10*3/uL 130-400 Automated blood platelet mean volume measurement 11.8 [foz_us] 7.4-10.4 Automated blood neutrophils/100 leukocytes 84 % 42-75 Automated blood lymphocytes/100 leukocytes 7 % 12-44 Blood monocytes/100 leukocytes 7 % 0-12 Automated blood eosinophils/100 leukocytes 2 % 0-10 Automated blood basophils/100 leukocytes 0 % 0-10 Blood neutrophils automated count (number/volume) 7.0 10*3 1.8-7.8 Blood lymphocytes automated count (number/volume) 0.6 10*3 1.0-4.0 Blood monocytes automated count (number/volume) 0. 6 10*3 0.0-1.0 Automated eosinophil count 0.2 10*3/uL 0 .0-0.3 Automated blood basophil count (count/volume) 0.0 10*3/uL 0.0-0.1 Manual absolute plasma cell count - 11/10 08/27 15:45 Blood monocytes/100 leukocytes 6 % NRG Manual blood segmented neutrophils/100 leukocytes 62 % NRG Blood band neutrophils/100 leukocytes 23 % NRG Manual blood lymphocytes/100 leukocytes 7 % NRG Manual eosinophils/100 leukocytes in nose 2 % NRG Blood erythrocyte morphology finding identification NORMAL NRG Blood toxic granules detection by light microscopy 1+ NRG Complete urinalysis with reflex to cultu re - 12/04/18 16:30 Urine color determination YELLOW NRG Urine clarity determination CLEAR NR G Urine pH measurement by test strip 5.5 5-9 Specific gravity of urine by test strip 1.015 1.016-1.022 Urine protein assay by test strip, semi-quantitative NEGATIVE NEGATIVE Urine glucose detection by automated test strip NE GATIVE NEGATIVE Erythrocytes detection in urine sediment by light micr oscopy NEGATIVE NEGATIVE Urine ketones detection by automated test strip NE GATIVE NEGATIVE Urine nitrite detection by test strip NEGATIVE NEGATIVE Urine total bilirubin detection by test strip NEGA TIVE NEGATIVE Urine urobilinogen measurement by automated test strip (mass/volume) 0.2 mg/dL NORMAL Urine leukocyte esterase detection by dipstick NEG ATIVE NEGATIVE Automated urine sediment erythrocyte cou nt by microscopy (number/high power field) NONE NRG Automated urine sediment leukocyte count by microscopy (number/high power field) NONE NRG Bacteria detection in urine sediment by light microsco py NEGATIVE NRG Squamous epithelial cells detection in u rine sediment by light microscopy NONE NRG Crystals detection in urine sediment by light microsco py PRESENT NRG Casts detection in urine sediment by light microscopy NONE NRG Mucus detection in urine sediment by light microscopy NEGATIVE NRG Complete urinalysis with reflex to culture NO NRG Amorphous sediment detection in urine sediment by ligh t microscopy FEW LUCA URATES NRG Arterial blood gas measurement - 0 03:00 Blood pCO2 63 mm[Hg] 35-45 Blood pO2 148 mm[Hg] 79-93 Arterial blood bicarbonate measurement (moles/volume) 31 mmol/L 23-27 Arterial blood base excess by calculation 3.0 mmol /L -2.5-2.5 Arterial blood oxygen saturation measurement 99 % 94-100 * Inhaled oxygen flow rate 99% NRG Arterial blood pH measurement with patient temperature correction 7.30 7.37-7.43 Arterial blood carbon dioxide, total measurement (mole s/volume) 32.9 mmol/L 21.0-31.0 Body site LEFT RADIAL NRG Assessment of wrist artery patency prior to arterial p uncture NO NRG Setting of ventilation mode NO NR G Measurement of body temperature 36.8 NRG Complete blood count (CBC) with automate d white blood cell (WBC) differential - 05/24/19 03:05 Blood leukocytes automated count (number/volume) 7.0 10*3/uL 4.3-11.0 Blood erythrocytes automated count (number/volume) 3.82 10*6/uL 4.35-5.85 Venous blood hemoglobin measurement (mass/volume) 11.0 g/dL 13.3-17.7 Blood hematocrit (volume fraction) 35 % 40-54 Automated erythrocyte mean corpuscular volume 91 [ foz_us] 80-99 Automated erythrocyte mean corpuscular h emoglobin (mass per erythrocyte) 29 pg 25-34 Automated erythrocyte mean corpuscular h emoglobin concentration measurement (mass/volume) 32 g/dL 32-36 Automated erythrocyte distribution width ratio 15. 2 % 10.0- 14.5 Automated blood platelet count (count/volume) 174 10*3/uL 130-400 Automated blood platelet mean volume measurement 11.2 [foz_us] 7.4-10.4 Automated blood neutrophils/100 leukocytes 71 % 42-75 Automated blood lymphocytes/100 leukocytes 17 % 12-44 Blood monocytes/100 leukocytes 8 % 0-12 Automated blood eosinophils/100 leukocytes 4 % 0-10 Automated blood basophils/100 leukocytes 1 % 0-10 Blood neutrophils automated count (number/volume) 5.0 10*3 1.8-7.8 Blood lymphocytes automated count (number/volume) 1.2 10*3 1.0-4.0 Blood monocytes automated count (number/volume) 0. 6 10*3 0.0-1.0 Automated eosinophil count 0.3 10*3/uL 0 .0-0.3 Automated blood basophil count (count/volume) 0.0 10*3/uL 0.0-0.1 PT panel in platelet poor plasma by coag ulation assay - 05/24/19 03:05 Prothrombin time (PT) in platelet poor plasma by coagu lation assay 20.1 s 12.2-14.7 INR in platelet poor plasma or blood by coagulation as say 1.6 0.8-1.4 Activated partial thromboplastin time (a PTT) in platelet poor plasma bycoagulation assay - 05/24/19 03:05 Activated partial thromboplastin time (a PTT) in platelet poor plasma bycoagulation assay 41 s 24-35 TROPONIN I FS - 05/24/19 03:05 TROPONIN I FS < 0.30 <0.30 Comprehensive metabolic panel - 05/24/19 03:05 Serum or plasma sodium measurement (moles/volume) 139 mmol/L 135-145 Serum or plasma potassium measurement (moles/volume) 4.2 mmol/L 3.6-5.0 Serum or plasma chloride measurement (moles/volume) 102 mmol/L 98-107 Carbon dioxide 26 mmol/L 21-32 Serum or plasma anion gap determination (moles/volume) 11 mmol/L 5-14 Serum or plasma urea nitrogen measurement (mass/volume ) 11 mg/dL 7-18 Serum or plasma creatinine measurement (mass/volume) 0.99 mg/dL 0.60-1.30 Serum or plasma urea nitrogen/creatinine mass ratio 11 NRG Serum or plasma creatinine measurement w ith calculation of estimated glomerular filtration rate > NRG Serum or plasma glucose measurement (mass/volume) 94 mg/dL 70-105 Serum or plasma calcium measurement (mass/volume) 8.4 mg/dL 8.5-10.1 Serum or plasma total bilirubin measurement (mass/volu me) 0.5 mg/dL 0.1-1.0 Serum or plasma alkaline phosphatase gilda surement (enzymatic activity/volume) 92 U/L 40-136 Serum or plasma aspartate aminotransfera se measurement (enzymatic activity/volume) 15 U/L 5-34 Serum or plasma alanine aminotransferase measurement (enzymatic activity/volume) 9 U/L 0-55 Serum or plasma protein measurement (mass/volume) 6.0 g/dL 6.4-8.2 Serum or plasma albumin measurement (mass/volume) 3.4 g/dL 3.2-4.5 CALCIUM CORRECTED 8.9 mg/dL 8.5-10.1 Magnesium - 05/24/19 03:05 Magnesium 1.7 mg/dL 1.6-2.4 Myoglobin, serum - 05/24/19 03:05 Myoglobin, serum 59.9 ng/mL 10.0-92.0 PROBNP FS - 05/24/19 03:05 PROBNP FS 139.7 pg/mL <75.0 Serum or plasma ethanol measurement (mas s/volume) - 05/24/19 03:05 Serum or plasma ethanol measurement (mass/volume) < mg/dL <10 Arterial blood gas measurement - 0 04:20 Blood pCO2 61 mm[Hg] 35-45 Blood pO2 74 mm[Hg] 79-93 Arterial blood bicarbonate measurement (moles/volume) 30 mmol/L 23-27 Arterial blood base excess by calculation 2.2 mmol /L -2.5-2.5 Arterial blood oxygen saturation measurement 93 % 94-100 * Inhaled oxygen flow rate 99% NRG Arterial blood pH measurement with patient temperature correction 7.30 7.37-7.43 Arterial blood carbon dioxide, total measurement (mole s/volume) 31.9 mmol/L 21.0-31.0 Body site RIGHT RADIAL NRG Assessment of wrist artery patency prior to arterial p uncture NO NRG Setting of ventilation mode NO NR G Measurement of body temperature 36.8 NRG Radiology Report from [id number] on 012 08:23:00 Final ReportADMITTING DIAGNOSIS: Renal Failure line placementCHEST PORTABLE SINGLE VIEW - 01/28/2012 [facility] RESULT: INDICATION: Evaluation line placement.No prior examinations are available for comparison.FINDINGS: There is a right internal jugular central venouscatheter which has its tip in the superior vena cava. Heart sizeis normal. Lungs are clear. There is no pleural effusion orpneumothorax.IMPRESSION: 1. Stable appearance of the chest.2. Right internal jugular central venous catheter with its tipin the superior vena cava.Dictated on workstation # [id number] BY: DEZ ROGERS II, M.D., RADIOLOGISTELECTRONICALLY SIGNED BY: DEZ ROGERS II, M.D., RADIOLOGISTD Jan 28 2012 6:28AT FRANCOIS: Jan 29 2012 6:32AS Jan 29 2012 6:32A Radiology Report from [id number] on 012 08:23:00 Final ReportADMITTING DIAGNOSIS: Renal Failure CHANGE OF EXAM FOR CORRECT CHARGINGCT CHEST/ABD/PELVIS W/O - 01/28/2012 [facility] RESULT: INDICATION: Sepsis, fall, shortness of breath.TECHNIQUE: Multiple contiguous axial images were obtainedthrough the chest, abdomen, and pelvis without the use ofintravenous contrast.FINDINGS: Chest: There are old fractures of the right posteriorsixth through eighth ribs. There is no mediastinal hematoma ormass. The aorta demonstrates no evidence of aneurysm. There isno evidence of fracture. The lungs show no evidence of pulmonarycontusio n or pneumothorax. There is extensive bilateralcentrilobular emphysematous change. There is subpleuralatelectasis in both lung bases, right greater than left. Thereis no pleural or pericardial fluid. There is a 1.1 cm rightthyroid nodule of uncertain clinical significance.Abdomen and pelvis: There are air- fluid and air filled dilatedloops of small bowel with air-fluid levels consistent with adistal small bowel obstruction. There is stranding and perhapsfluid in the region of the tip of the cecum, however, segmentsof normal- appearing appendix are visualized. The spleen andpancreas are normal. The liver is grossly normal in appearance.There are several small stones in the gallbladder. There is nopericholecystic stranding appreciated. No distal common bileduct stones are seen. There is moderate calcification of theabdominal aorta without evidence of aneurysmal dilatation. Thereis no free air. No fractures are identified. There is noevidence of obstructive uropathy. There is probable contusionwithin the subcutaneous fat overlying the right side of thepelvis and hip. There also may be some edema and/or hematomawithin some of the muscle groups about the proximal femur.IMPRESSION: Extensive centrilobular emphysematous changes inlungs bilaterally without acute traumatic change in the chest.Findings suspect for distal small bowel obstruction. Recommendclinical correlation and if warranted followup with small bowelseries.Small amount of fluid adjacent to the cecum, however, segmentsof a normal appearing appendix are visualized. Recommendclinical correlation.No abdominal or pelvic solid organ injury.Soft tissue contusion within the subcutaneous fat andmusculature about the right hip.Cholelithiasis.Dictated on workstation # [id number] BY: DEZ ROGERS II, M.D., RADIOLOGISTELECTRONICALLY SIGNED BY: DEZ ROGERS II, M.D., RADIOLOGISTD Jan 28 2012 6:05AT JUWAN: Jan 29 2012 6:32AS Jan 29 2012 6:32A Radiology Report from [id number] on 012 08:23:00 Final ReportADMITTING DIAGNOSIS: Renal Failure acute renal failureRENAL SONO BILATERAL - 01/28/2012 [facility] RESULT: INDICATION: Acute renal failure.TECHNIQUE: Multiple real time grayscale images were obtained ofthe kidneys in various projections bilaterally.FINDINGS: Right kidney measures 12.4 cm and the left kidneymeasure 11.4 cm. Both kidneys demonstrate normal renal corticalthickness and echogenicity. There is a cyst in the rightmeasuring up to 1.5 cm. There is a cyst on the left measuring upto 1.6 cm. There is no hydronephrosis. The bladder is empty.There is ascites. There are stones in the gallbladder.IMPRESSION: Bilateral renal cyst.Cholelithiasis and ascites.Dictated on workstation # [id number] RADIOLOGIST: DEZ ROGERS II, M.D., RADIOLOGISTELECTRONICALLY SIGNED BY: DEZ ROGERS II, M.D., RADIOLOGISTD Jan 28 2012 7:08AT SA2: Jan 29 2012 6:32AS Jan 29 2012 6:32A Radiology Report from [id number] on 012 15:40:00 Final ReportADMITTING DIAGNOSIS: Renal Failure ETT placementCHEST PORTABLE SINGLE VIEW - 01/29/2012 [facility] RESULT: INDICATION:Evaluate tube placement.COMPARISON:January 28, 2012.FINDINGS:The heart size is stable. There is some central pulmonary venouscongestion. There is right basilar infiltrate and right pleuraleffusion. There has been placement of an endotracheal tube whichis above the katie. The other lines and tubes appear to be insatisfactory positions.IMPRESSION: Interval placement of an endotracheal tube which is 2-3 cm abovethe katie.Moderate central pulmonary venous congestion.Right basilar infiltrate and right pleural effusion.Dictated on workstation # [id number] BY: DEZ ROGERS II, M.D., RADIOLOGISTELECTRONICALLY SIGNED BY: DEZ ROGERS II, M.D., RADIOLOGISTD Jan 29 2012 1:23PT JM : Jan 29 2012 3:38PS Jan 29 2012 3:38P Radiology Report from [id number] on 012 09:01:00 Final ReportADMITTING DIAGNOSIS: Renal Failure MESENTERIC W/ POSSIBLE THROMBOLYSISMESENTERIC(VISCERAL)ARTERIOGRAM - 01/29/2012 [facility] RESULT: Indication: bowel. Nonpalpable pulse of the superiormesenteric artery intraoperatively. Concern for SMA thrombosis.Comparison: None.Group Director: Dr. Musa.Total fluoroscopy time: 19.3 minutes.Total contrast: 173 mL of Isovue-250.Details of the procedure: After informed consent was obtained,the patient was placed supine on the angiography table. Theright groin was prepped and draped in the usual sterile fashion.Local anesthesia was achieved with lidocaine. Following this,access was gained into the right common femoral artery utilizingmicropuncture technique. The following vessels were eachindividually cannulated, injected with contrast, and studiedwith digital subtraction angiography:1. Right common femoral artery.2. Superior mesenteric artery.3. Jejunal branch of the superior mesenteric artery.4. Ileocolic branch of the superior mesenteric artery.Findings:1. The superior mesenteric artery is widely patent. There is noevidence of superior mesenteric artery thrombosis.2. One of the jejunal branches appears somewhat spastic. Thismay be related to recent surgery or from wire manipulation.However, there is no intraluminal thrombus.3. There is somewhat slow flow within the ileocolic branch. Thisvessel was individually selected and injected. Flow extends intothe right lower quadrant to the suture line. This is felt tomost likely represent residual flow within a recently ligatedvessel. Per history, the patient has had right partialcolectomy.4. Attempt was made to subselect the celiac plexus, but provedunsuccessful. While attempting to select the celiac axis, thecatheter continue to kink. Due to the concern for undermining aplaque, further attempts were not made. There is adequate flowwithin the hepatic artery via collaterals from the SMA.5. Attempt was also made to subselect the inferior mesentericartery, but proved unsuccessful, likely due to its smallcaliber.Intervention: None. Femoral access site was closed with Perclosedevice.Complications: None.IMPRESSION: 1. Widely patent main superior mesenteric artery. No evidence ofsignificant stenosis or thrombosis.2. Spastic appearance to a jejunal branch, which is felt to bedue to recent surgery versus wire manipulation.3. Sluggish flow within the ileocolic artery. This is felt to bedue to recent surgery.Results were discussed with Dr. Jayden Torres by Dr. Musa at thecompletion of the procedure on 01/29/2012.Dictated on workstation # [id number] BY: CARLTON MUSA M.D., ELECTRONICALLY SIGNED BY: CARLTON MUSA M.D., D Feb 01 2012 7:49AT KB : Feb 01 2012 8:58AS Feb 01 2012 8:58A Radiology Report from [id number] on 012 08:46:00 Final ReportADMITTING DIAGNOSIS: Renal Failure resp distressCHEST PORTABLE SINGLE VIEW - 01/30/2012 [facility] RESULT: TIME: 4:42 a.m.INDICATION: Respiratory distressUpright portable chest shows normal heart size and vascularity.There is atelectasis and infiltrate in the right lower lobe withsome pleural effusion on the right. There is slightly moreopacification of the right lung compared to the prior exam from01/29/12. The left lung is clear. Support lines and tubes remainin place.IMPRESSION: There is more opacification of the right lower lobeconsistent with increasing a telectasis and infiltrate.Dictated on workstation # [id number] BY: JONAH BRUCE M.D., RADIOLOGISTELECTRONICALLY SIGNED BY: JONAH BRUCE M.D., RADIOLOGISTD Jan 30 2012 7:17AT JUWAN: Jan 30 2012 8:44AS Jan 30 2012 8:44A Radiology Report from [id number] on 012 16:54:00 Final ReportADMITTING DIAGNOSIS: Renal Failure OR 25 post-op exp lapABDOMEN(KUB) - 01/30/2012 [facility] RESULT: INDICATION: Rule out postop foreign body.FINDINGS: Skin pedro are seen down the midline of the abdomen.The bowel gas pattern is nonspecific. A nasogastric tube is inplace. There are no unexpected postop foreign bodies.IMPRESSION: No unexpected postop foreign bodies.Dictated on workstation # [id number] BY: DEZ ROGERS II, M.D., RADIOLOGISTELECTRONICALLY SIGNED BY: DEZ ROGERS II, M.D., RADIOLOGISTD Jan 30 2012 3:35PT PH : Jan 30 2012 3:38PS Jan 30 2012 4:51P Radiology Report from [id number] on 012 11:33:00 Final ReportADMITTING DIAGNOSIS: Renal Failure Resp distressCHEST PORTABLE SINGLE VIEW - 01/31/2012 [facility] RESULT: INDICATION: Respiratory failureCOMPARISON: 01/30/2012FINDINGS: Single frontal view of the chest demonstratesunchanged infiltrate, effusion and atelectasis in the right lungbase. Left lung is clear. The heart size is prominent butstable. There is no pneumothorax. Tubes and lines are stable.IMPRESSION: Unchanged aeration of the right lung base.Dictated on workstation # [id number] BY: MARZENA LYLES M.D., RADIOLOGISTELECTRONICALLY SIGNED BY: MARZENA LYLES M.D., RADIOLOGISTD Jan 31 2012 6:57AT JUWAN: Jan 31 2012 11:31AS Jan 31 2012 11:31A Radiology Report from [id number] on 012 08:34:00 Final ReportADMITTING DIAGNOSIS: Renal Failure To assess resp. statusCHEST PORTABLE SINGLE VIEW - 02/01/2012 [facility] RESULT: Indication: Respiratory distress.Comparison: 01/31/2012.Findings: Single frontal view of the chest demonstratesworsening bilateral pulmonary infiltrates and atelectasis. Heartremains enlarged with trace interstitial edema. There is nopneumothorax.IMPRESSION: Worsening infiltrates, atelectasis and interstitialedema.Dictated on workstation # [id number] BY: MARZENA LYLES M.D., RADIOLOGISTELECTRONICALLY SIGNED BY: MARZENA LYLES M.D., RADIOLOGISTD Feb 01 2012 6:31AT KB : Feb 01 2012 8:31AS Feb 01 2012 8:31A Radiology Report from [id number] on 012 12:19:00 Final ReportADMITTING DIAGNOSIS: Renal Failure assess resp statusCHEST PORTABLE SINGLE VIEW - 02/02/2012 [facility] RESULT: INDICATION: Assess respiratory status.EXAMINATION: Frontal chest 02/02/2012COMPARISON: 02/01/12FINDINGS:Bibasal infiltrates are noted right greater than left. Thesefindings have slightly improved. There are bibasal pleuraleffusions with changes of mild edema within the remaining lungs.This is also improved.The heart is stable. The pulmonary vasculature is mildlycongested.Right central line is unchanged.IMPRESSION: IMPRESSION :Bilateral infiltrates and effusions as well as pulmonary edemaagain noted but overall improving.Dictated on workstation # [id number] BY: KEIKO SIMMONS M.D., ELECTRONICALLY SIGNED BY: KEIKO SIMMONS M.D., Lyndsey Feb 02 2012 8:27AT MAX: Feb 02 2012 12:16PS Feb 02 2012 12:16P Radiology Report from [id number] on 012 12:23:00 Final ReportADMITTING DIAGNOSIS: Renal Failure Dobhoff placementKUB (ABDOMEN) - 02/02/2012 [facility] RESULT: INDICATION: Dobbhoff catheter placementEXAMINATION: Abdomen 02/02/2012FINDINGS:Frontal abdomenA Dobbhoff catheter is noted. It is looped in the stomach butthe tip appears to extend into the second portion of theduodenum. The stomach is distended with air. No free air noted.IMPRESSION: 1. Dobbhoff catheter tip likely in the second portion of theduodenum.Dictated on workstation # [id number] BY: KEIKO SIMMONS M.D., ELECTRONICALLY SIGNED BY: KEIKO SIMMONS M.D., Lyndsey Feb 02 2012 11:04AT JUWAN: Feb 02 2012 12:20PS Feb 02 2012 12:20P Radiology Report from [id number] on 012 09:13:00 Final ReportADMITTING DIAGNOSIS: Renal Failure R/O DVTEXT LOWER VENOUS DUPLEX UNI RT - 02/02/2012 [facility] RESULT: INDICATION: Right leg pain and swelling. Evaluate for deepvenous thrombosis.COMPARISONS: NoneTECHNIQUE:Real-time sonographic images of the superficial and deep venoussystem of the right lower extremity were obtained.FINDINGS:There is normal phasic flow within the superficial and deepvenous system of the right lower extremity. There is no evidenceof intraluminal thrombus. There is normal compressibility,spontaneity and normal response to augmentation.IMPRESSION: No sonographic evidence for right lower extremity deep venousthrombosis.Dictated on workstation # [id number] RADIOLOGIST: Edwar MELTON M.D., RADIOLOGISTELECTRONICALLY SIGNED BY: Edwar MELTON M.D., RADIOLOGISTD Feb 02 2012 1:17PT MAX: Feb 04 2012 9:11AS Feb 04 2012 9:11A Radiology Report from [id number] on 012 13:32:00 Final ReportADMITTING DIAGNOSIS: Renal Failure dobhoff placementKUB(ABD)TUBE PLCMT POST PYLORIC - 02/03/2012 [facility] RESULT: INDICATION: Dobhoff placement.TIME OF EXAM: 11:42 p.m.A single portable view of the abdomen was obtained. Reportedly,a Dobhoff has been placed; however, no Dobhoff catheter isidentified. Moderate gaseous distention to the stomach is noted.Midline surgical pedro are noted. There is moderate gaseousdistention of the small bowel.IMPRESSION: Dobhoff is nonvisualized. Imaging of the chest willbe recommended to evaluate for malpositioned Dobhoff.Di ctated on workstation # [id number] BY: JOSUE CORDOVA M.D., RADIOLOGISTELECTRONICALLY SIGNED BY: JOSUE CORDOVA M.D., RADIOLOGISTD Feb 04 2012 11:53AT MSK: Feb 05 2012 1:30PS Feb 05 2012 1:30P Radiology Report from [id number] on 012 10:46:00 Final ReportADMITTING DIAGNOSIS: Renal Failure to assess resp. statusCHEST PORTABLE SINGLE VIEW - 02/03/2012 [facility] RESULT: INDICATION: Check respiratory status.EXAMINATION: Frontal chest 02/03/2012.COMPARISON: 02/03/2012 at earlier time.FINDINGS: The heart is stable in appearance. There is pulmonaryvascular congestion. Bibasilar infiltrates and effusions arenoted with pulmonary edema throughout remaining lungs. The chestappears overall stable. Right central line is unchanged with afeeding tube coursing beneath the diaphragm.IMPRESSION: 1. Stable chest.Dictated on wor kstation # [id number] BY: KEIKO SIMMONS M.D., ELECTRONICALLY SIGNED BY: KEIKO SIMMONS M.D., D Feb 03 2012 8:40AT SA2: Feb 03 2012 10:44AS Feb 03 2012 10:44A Radiology Report from [id number] on 09:52:00 Final ReportADMITTING DIAGNOSIS: Renal Failure To assess resp. statusCHEST PORTABLE SINGLE VIEW - 02/04/2012 [facility] RESULT: INDICATION: Pulmonary infiltrates.Time of exam: 4:49 AMComparison is made with prior study from one day earlier.Right-sided central line and Dobbhoff remain in place. Bibasilarinfiltrates and effusions persist. There is some perihilarinfiltrate noted. No pneumothorax is seen.IMPRESSION: No change when compared with exam one day earlier.Dictated on workstation # [id number] BY: JOSUE CORDOVA M.D., RADIOLOGISTELECTRONICALLY SIGNED BY: JOSUE CORDOVA M.D., RADIOLOGISTD Feb 04 2012 7:46AT RF : Feb 04 2012 9:49AS Feb 04 2012 9:49A Radiology Report from [id number] on 09:52:00 Final ReportADMITTING DIAGNOSIS: Renal Failure dh placementKUB(ABD)TUBE PLCMT POST PYLORIC - 02/04/2012 [facility] RESULT: INDICATION: Dobbhoff placement.Time of exam: 4:43 AMPortable supine view of the abdomen was obtained.FINDINGS: Dobbhoff catheter appears to have a tip at thejunction of the second and third portion of the duodenum. Thereis moderate gaseous distention to the stomach noted.IMPRESSION: Dobbhoff catheter has a tip at the junction of thesecond and third portion of the duodenum.Dictated on workstation # [id number] BY: JOSUE CORDOVA M.D., RAD IOLOGISTELECTRONICALLY SIGNED BY: JOSUE CORDOVA M.D., RADIOLOGISTD Feb 04 2012 7:40AT SA2: Feb 04 2012 9:49AS Feb 04 2012 9:49A Radiology Report from [id number] on 13:33:00 Final ReportADMITTING DIAGNOSIS: Renal Failure DHT placementKUB (ABDOMEN) - 02/04/2012 [facility] RESULT: INDICATION: Dobbhoff placement.Time of exam: 10:28 a.m.Portable view of the abdomen was obtained. There is Dobbhoffcatheter which has tip at the junction of the second and thirdportion of the duodenum. There is some linear atelectasis inright base.IMPRESSION: Satisfactory Dobbhoff placement.Dictated on workstation # [id number] BY: JOSUE CORDOVA M.D., RADIOLOGISTELECTRONICALLY SIGNED BY: JOSUE CORDOVA M.D., RADIOLOGISTD Feb 04 2012 11:55AT JUWAN: Feb 05 2012 1:31PS Feb 05 2012 1:31P Radiology Report from [id number] on 012 11:34:00 Final ReportADMITTING DIAGNOSIS: Renal Failure increased o2 requirementsCHEST PORTABLE SINGLE VIEW - 02/05/2012 [facility] RESULT: INDICATION: Hypoxia.COMPARISON: Study compared 02/04/2012.FINDINGS: Findings of pulmonary edema and vascular congestionhave improved from the previous study. There is some discoidright basilar subsegmental atelectasis with no other adversechange.IMPRESSION: Reduction in edema and failure pattern with mildright basilar atelectasis.Dictated on workstation # [id number] BY: DEMETRIUS KUMAR M.D., RADIOLOGISTELECTRONICALLY SIGNED BY: DEMETRIUS KUMAR M.D., RADIOLOGISTD Feb 05 2012 7:19AT AIG: Feb 05 2012 11:31AS Feb 05 2012 11:31A Radiology Report from [id number] on 012 09:28:00 Final ReportADMITTING DIAGNOSIS: Renal Failure SOACHEST PORTABLE SINGLE VIEW - 02/06/2012 [facility] RESULT: TIME: 5:54 a.m.INDICATION: Short of air.FINDINGS: Upright portable chest shows normal heart size andvascularity. There is bibasilar discoid atelectasis. There is noeffusion. PICC line tip is in the SVC. Dobbhoff tube is present.IMPRESSION: Bibasilar atelectasis. The vascularity has decreasedslightly since 02/05/2012.Dictated on workstation # [id number] BY: JONAH BRUCE M.D., RADIOLOGISTELECTRONICALLY SIGNED BY: JONAH BRUCE M.D., RADIOLOGIS TD Feb 06 2012 7:12AT SA2: Feb 06 2012 9:25AS Feb 06 2012 9:25A Radiology Report from [id number] on 012 10:21:00 Final ReportADMITTING DIAGNOSIS: Renal Failure Resp distressCHEST PORTABLE SINGLE VIEW - 02/07/2012 [facility] RESULT: INDICATION: Respiratory distress.Portable chest obtained at 5:24 a.m. and compared to yesterday.FINDINGS: Dobbhoff tube and central venous catheter areunchanged. The heart is normal in size. There is centralvascular congestion with patchy bibasilar infiltrate, rightgreater than left. There is no pneumothorax.IMPRESSION: Unchanged Dobbhoff tube and central venous catheter. Patchybibasilar infiltrates, right greater than left. No newabnormality compared to yesterday.Dictated on workstation # [id number] BY: CYNTHIA FERREIRA M.D., RADIOLOGISTELECTRONICALLY SIGNED BY: CYNTHIA FERREIRA M.D., RADIOLOGISTD Feb 07 2012 7:32AT FRANCOIS: Feb 07 2012 10:19AS Feb 07 2012 10:19A Radiology Report from [id number] on 012 15:10:00 Final ReportADMITTING DIAGNOSIS: Renal Failure tube placementCHEST PORTABLE SINGLE VIEW - 02/07/2012 [facility] RESULT: INDICATION: Endotracheal tube placementRESULT: A portable view of the chest is compared to an exam from5 AM. An endotracheal tube is in place with its tip in goodposition. Orogastric tube and feeding tube transversesradiograph. A right jugular catheter remains in place with itstip in the SVC. Bilateral pulmonary infiltrates have notappreciably changed.IMPRESSION: Interval intubation with no significant change ofthe lungs.Dictated on workstation # [id number] BY: LUIS A JAMES M.D., ELECTRONICALLY SIGNED BY: LUIS A JAMES M.D., Lyndsey Feb 07 2012 1:14PT MAX: Feb 07 2012 3:07PS Feb 07 2012 3:07P Radiology Report from [id number] on 012 08:36:00 Final ReportADMITTING DIAGNOSIS: Renal Failure R/O anastamosis leakGASTROGRAFIN SMALL BOWEL - 02/07/2012 [facility] RESULT: INDICATION: Suspicion for anastomotic leak.TECHNIQUE: 240 ml volume water- soluble Gastrografin contrastmedia was instilled through the indwelling Dobbhoff catheterwith serial radiographs performed.The exam was terminated prematurely owing to patient clinicalinstability. There is mild dilatation of the opacified proximalsmall-bowel loops. No visualized extraluminal contrastcollection was found. There was however some fluid purged fromthe wound with contrast injection; however, no extravasation isidentified.IMPRESSION: Limited exam. Proximal small-bowel loops are mildly distended.No visualized extravasated contrast. Subsequent CT is performed.That exam also fails to visualize extravasated or extraluminalcontrast.Dictated on workstation # [id number] BY: DEMETRIUS KUMAR M.D., RADIOLOGISTELECTRONICALLY SIGNED BY: DEMETRIUS KUMAR M.D., RADIOLOGISTD Feb 07 2012 4:03PT MICHELLE : Feb 11 2012 8:33AS Feb 11 2012 8:33A Radiology Report from [id number] on 012 15:55:00 Final ReportADMITTING DIAGNOSIS: Renal Failure anastamosis leakCT ABD/PELVIS W - 02/07/2012 [facility] RESULT: EXAMINATION: CT of the abdomen and pelvis with contrast,February 07, 2012.INDICATION: Evaluate for anastomotic leak.TECHNIQUE: After Gastrografin was administered through thepatient''s Dobbhoff tube, axial images were obtained through theabdomen and pelvis after intravenous contrast administration.FINDINGS: Surgical changes related to right hemicolectomy arenoted. The administered contrast opacifies the entirety of thesmall bowel and passes through the colon to the level of therectum. The distal colon is decompressed. There is some milddistention of the transverse colon.There is a moderate amount of free fluid demonstrated within theabdomen. No increased density within the free fluid is evidentto suggest extravasation of contrast. 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 The Dobbhoff feeding tubeterminates within the third portion of the duodenum. Nasogastrictube is in place.There is some mild fluid about the gallbladder. Gallbladder isnondistended. There is no biliary dilatation. The spleen isunremarkable. The adrenals appear normal. The pancreasdemonstrates no focal abnormality. The kidn eys appearnonobstructed.There is a Frankel catheter within the urinary bladder. The gaswithin the urinary bladder is likely related to this catheter.There are consolidative changes at the lung bases bilaterally.Right-sided effusion consistent with pneumonia. There is nopericardial effusion.Bone windows demonstrate no acute osseous abnormality. Thepatient is status post bilateral hip arthroplasty.IMPRESSION: 1. CT fails to demonstrate anastomotic leak or source ofpatient''s enterocutaneous fistula. The administered oralcontrast passes through the entirety of the small bowel, throughthe anastomosis, and passes to the rectum.2. There is moderate free fluid within the abdomen. No focalloculated collection is demonstrated. There is no increaseddensity within the free fluid to suggest extravasated contrast.3. Bibasilar pneumonias and right-sided pleural effusion.Dictated on workstation # [id number] BY: PAGIE DYER M.D., RADIOLOGISTELECTRONICALLY SIGNED BY: PAIGE DYER M.D., RADIOLOGISTD Feb 07 2012 2:24PT FRANCOIS: Feb 07 2012 3:53PS Feb 07 2012 3:53P Radiology Report from [id number] on 012 12:07:00 Final ReportADMITTING DIAGNOSIS: Renal Failure fluid volume overloadCHEST PORTABLE SINGLE VIEW - 02/08/2012 [facility] RESULT: INDICATION: Fluid overload. Respiratory distress.Portable film done on : compared to the previous day. Thereis interval increase in the diffuse bilateral edema/infiltratesin the hilar and perihilar areas and in both lung bases. Thepulmonary vessels remain congested. Tip of ET tube is well abovethe katie. Right jugular catheter is unchanged in the SVC.IMPRESSION: Bilateral infiltrates/edema have increased from theprevious day.Dictated on workstation # [id number] BY: IVETT PONCE M.D., RADIOLOGISTELECTRONICALLY SIGNED BY: IVETT PONCE M.D., RADIOLOGISTD Feb 08 2012 8:25AT JUWAN: Feb 08 2012 12:05PS Feb 08 2012 12:05P Radiology Report from [id number] on 11:31:00 Final ReportADMITTING DIAGNOSIS: Renal Failure intraabdominal fluid collectionCT ABDOMEN (WO CONTRAST) - 02/08/2012 [facility] RESULT: INDICATION: Abdominal fluid collection.FINDINGS: Patient presented for CT-guided drainage of fluidcollection along the right paracolic gutter. Limited CT viewswere obtained prior to possible drainage. This demonstrated thatthe fluid in the right paracolic gutter was almost completelyresolved and only visualized on about 1-2 cuts. There is somefree fluid in the pelvis still present, although this appearsdecreased compared to the prior study and is not accessible.IMPRESSION: Fluid in the right paracolic gutter seen on CT of02/07/12 has almost completely resolved. There is some freefluid in the pelvis, but this is not accessible. A drainageprocedure was therefore not performed.Dictated on workstation # [id number] BY: CYNTHIA FERREIRA M.D., RADIOLOGISTELECTRONICALLY SIGNED BY: CYNTHIA FERREIRA M.D., RADIOLOGISTD Feb 08 2012 10:02AT AIG: Feb 08 2012 11:29AS Feb 08 2012 11:29A Radiology Report from [id number] on 06:10:00 Final ReportADMITTING DIAGNOSIS: Renal Failure to assess resp. statusCHEST PORTABLE SINGLE VIEW - 02/09/2012 [facility] RESULT: INDICATION: Fluid overload.COMPARISON: Comparison made with prior examination of 02/08/2012.FINDINGS: Lines and tubes are in satisfactory position. Theheart size is stable. There is some central pulmonary venouscongestion. There are bibasilar infiltrates. There is no pleuraleffusion or pneumothorax. Mediastinum is unremarkable.IMPRESSION: 1. Interval improvement in the bibasilar pulmonary infiltrates.2. Persistent central pulmonary venous congestion.Dictated on workstation # [id number] BY: DEZ ROGERS II, M.D., RADIOLOGISTELECTRONICALLY SIGNED BY: DEZ ROGERS II, M.D., RADIOLOGISTD Feb 09 2012 8:16AT MK4: Feb 11 2012 6:07AS Feb 11 2012 6:07A Radiology Report from [id number] on 12/01/2 012 16:58:00 Final ReportADMITTING DIAGNOSIS: Renal Failure POST OP JEJUNUMOSTOMY TUBE PLACEMENTABDOMEN(KUB) - 02/09/2012 [facility] RESULT: Single AP view of the abdomen.INDICATION: Jejunostomy tube placement.FINDINGS: Jejunostomy tube is demonstrated. There is no evidenceof unexpected radiopaque foreign body. The bowel gas patternappears nonobstructed.Patient is status post previous bilateral hip arthroplasty.IMPRESSION: Single AP view of the abdomen demonstrates a newlyplaced jejunostomy tube. No supine evidence of free air isdemonstrated. No unexpected radiopaque foreign body is seen.Dictated on workstation # [id number] BY: PAIGE DYER M.D., RADIOLOGISTELECTRONICALLY SIGNED BY: PAIGE DYER M.D., RADIOLOGISTD Feb 09 2012 2:25PT SA2: Feb 09 2012 4:56PS Feb 09 2012 4:56P Radiology Report from [id number] on 012 13:45:00 Final ReportADMITTING DIAGNOSIS: Renal Failure Resp distressCHEST PORTABLE SINGLE VIEW - 02/10/2012 [facility] RESULT: Portable chest, February 10, 2012. Comparison is made with priorfrom February 09, 2012.INDICATION: Respiratory distress.FINDINGS: Endotracheal tube appears appropriately positioned.There has been removal of the enteric and feeding tubes whencompared to the prior exam. Right internal jugular central lineremains in place. There is no evidence of pneumothorax. Therehas not been interval change in the appearance of bibasilarinfiltrates when compared to the prior study. No pleuraleffusion is evident. Heart size remains normal.IMPRESSION: 1. Interval removal of feeding tube and orogastric tube.2. Stable appearance of bibasilar infiltrates.Dictated on workstation # [id number] BY: PAIGE DYER M.D., RADIOLOGISTELECTRONICALLY SIGNED BY: PAIGE DYER M.D., RADIOLOGISTD Feb 10 2012 11:33AT SA2: Feb 10 2012 11:43AS Feb 10 2012 1:43P Radiology Report from [id number] on 012 16:46:00 Final ReportADMITTING DIAGNOSIS: Renal Failure picc placementCHEST PIC LINE PLACEMENT-ONE VIE - 02/10/2012 [facility] RESULT: EXAMINATION: Portable chest.Compared to prior from earlier in the same day.INDICATION: PICC placement.FINDINGS: Endotracheal tube appears appropriately positioned. Anew right-sided PICC line has been placed and terminates withinthe superior vena cava. A right internal jugular central lineremains in place.When compared to the previous exam, there has not been evidenceof significant interval change in the appearance of bibasilarinfiltrates. There is no pneumothorax. No effusion is evident.Heart size appears unchanged.IMPRESSION: 1. Right-sided PICC terminates within the superior vena cava.2. Unchanged appearance of bibasilar infiltrates.3. Endotracheal tube remains appropriately positioned.Dictated on workstation # [id number] BY: PAIGE DYER M.D., RADIOLOGISTELECTRONICALLY SIGNED BY: PAIGE DYER M.D., RADIOLOGISTD Feb 10 2012 4:34PT FRANCOIS: Feb 10 2012 4:38PS Feb 10 2012 4:44P Radiology Report from [id number] on 012 17:08:00 Final ReportADMITTING DIAGNOSIS: Renal Failure Resp distressCHEST PORTABLE SINGLE VIEW - 02/11/2012 [facility] RESULT: INDICATION: Respiratory distressEXAMINATION: Chest AP upright 02/11/2012 at 6:17 am.FINDINGS: Endotracheal tube is in good alignment. The heart,vascularity and pleura is normal. There is increased markingsover the left lung base. There appears to be a patchybronchopneumonia similar to the previous. There is motion on theprevious exam which makes it look worse. No other abnormalities.IMPRESSION: 1. There is still patchy bronchopneumonia lateral to the lefthilum and over the left lower lobe.2. Endotracheal tube is in good alignment. The chest otherwisenormal.Dictated on workstation # [id number] BY: SANJIV WESTON M.D., RADIOLOGISTELECTRONICALLY SIGNED BY: SANJIV WESTON M.D., RADIOLOGISTD Feb 11 2012 8:31AT MAX: Feb 11 2012 5:05PS Feb 11 2012 5:05P Radiology Report from [id number] on 012 08:56:00 Final ReportADMITTING DIAGNOSIS: Renal Failure Resp distressCHEST PORTABLE SINGLE VIEW - 02/12/2012 [facility] RESULT: INDICATION: Respiratory distressEXAMINATION: Chest AP upright 02/12/2012 at 6:19 am.FINDINGS: Endotracheal tube is in good alignment. The patientcontinues to have a patchy bronchopneumonia but its over afairly large area, probably the lower 35% of the left chest isinvolved. No effusions. Some minimal discoid atelectasis. Someof it new but still minimal over the right lung base. Thevascularity is normal and the endotracheal tube is in goodalignment. The heart is normal.IMPRESSION: 1. There is still a large area of bronchopneumonia unchangedover the lower 35-40% of the left chest.2. There is some new discoid atelectasis over the right base butit is still only discoid atelectasis.3. Endotracheal tube is in good alignment.Dictated on workstation # [id number] BY: SANJIV WESTON M.D., RADIOLOGISTELECTRONICALLY SIGNED BY: SANJIV WESTON M.D., RADIOLOGISTD Feb 12 2012 6:52AT MAX: Feb 12 2012 8:54AS Feb 12 2012 8:54A Radiology Report from [id number] on 13:49:00 Final ReportADMITTING DIAGNOSIS: Renal Failure unidentified bleedMESENTERIC(VISCERAL)ARTERIOGRAM - 02/12/2012 [facility] RESULT: INDICATION: Recurrent GI bleed, most likely from the jejunumand/or ileum. Blood is noted in the ileostomy. A mesentericarteriogram with possible embolization was requested.COMPARISON: 01/29/2012TECHNIQUE:The patient was on a ventilator and intubated. The patient wasalso sedated. The patient was placed supine on the angio table.The skin surface over the right groin was prepped and draped insterile fashion. 1% lidocaine was used for local anesthetic. Amicropuncture needle was advanced into the right common femoralartery and arteriotomy was upsized to a 4-Argentine sheath. Next, a4-Argentine Cobra catheter was advanced into the superiormesenteric artery. Contrast was injected and digital subtractionangiography was performed. Subselect injection distally in theSMA was also performed. These images did confirm activeextravasation of contrast in the left lower quadrant jejunalbranch. With this assessment, coil embolization was planned. ARenegade microcatheter was placed through the Cobra glidecatheter and was slowly negotiated into the distal aspect of thesecond left jejunal branch. The microcatheter was advanced asfar as possible to the source of the bleed. Coil embolizationwas performed with placement of two 3 mm fibered coils. Asubsequent check angiogram through a diagnostic catheter showedno residual contrast extravasation. There is, however, noted donaldo a slight fusiform change in the region of the gastroduodenalarcade. Since this was not felt to be an upper GI bleed, thisfinding was not addressed at this time.IMPRESSION: 1. Active extravasation of contrast from the second jejunalbranch coming off the left side of the superior mesentericartery. This was subselected using a Renegade microcatheter withdistal embolization of the bleeding artery using 3 mm fiberedcoils.2. Slight fusiform change in a focal segment of thepancreaticoduodenal arcade. Since the concern at this time wasnot for an upper GI bleed, this was not addressed at this time.Dictated on workstation # [id number] BY: Edwar MELTON M.D., RADIOLOGISTELECTRONICALLY SIGNED BY: Edwar MELTON M.D., RADIOLOGISTD Feb 14 2012 1:28PT FRANCOIS: Feb 15 2012 1:46PS Feb 15 2012 1:46P Radiology Report from [id number] on 012 09:25:00 Final ReportADMITTING DIAGNOSIS: Renal Failure to assess resp. statusCHEST PORTABLE SINGLE VIEW - 02/13/2012 [facility] RESULT: INDICATION: Respiratory distress.2 frontal radiographs of the chest 0637 hours.COMPARISON DATE: 02/12/2012.FINDINGS:Endotracheal tube and right sided central line remain in place.Somewhat nodular infiltrates about the left lung bases leftgreater than right are again noted. There is relative sparing ofthe upper lungs. Heart size and mediastinum stable.IMPRESSION: Bibasilar infiltrate left greater than right. Followup imagingis recommended. There is somewhat of a nodular appearance aboutthe areas of infiltrate.Dictated on workstation # [id number] BY: MARITZA MENDOZA D.O., RADIOLOGISTELECTRONICALLY SIGNED BY: MARITZA MENDOZA D.O., RADIOLOGISTD Feb 13 2012 7:45AT MAX: Feb 13 2012 8:02AS Feb 13 2012 9:23A Radiology Report from [id number] on 012 08:34:00 Final ReportADMITTING DIAGNOSIS: Renal Failure Resp distressCHEST PORTABLE SINGLE VIEW - 02/14/[address] [facility] [address] [facility] RESULT: INDICATION: Respiratory distress.TIME OF EXAM: 5:33 AMCOMPARISON: 02/13/2012 at 6:12 AM. 02/10/2012. 02/05/2012.01/28/2012.FINDINGS: Single frontal view.ET tube is in good position. The right PICC is present with tipin superior vena cava. Cardiac silhouette size is normal. Patchyareas of interstitial and alveolar opacity are seen in the leftlung with a lesser amount of interstitial opacity in the rightlung base. There is no pneumothorax identified. No significantamount of pleural fluid is identified.IMPRESSION: 1. Patchy areas of basilar alveolar interstitial opacityconsistent with pneumonitis. No significant change from thecomparison study 02/13/2012.Dictated on workstation # [id number] BY: LEW LYONS M.D., RADIOLOGISTELECTRONICALLY SIGNED BY: LEW LYONS M.D., RADIOLOGISTD Feb 14 2012 7:54AT AIG: Feb 14 2012 8:32AS Feb 14 2012 8:32A Radiology Report from [id number] on 09:17:00 Final ReportADMITTING DIAGNOSIS: Renal Failure to assess resp. statusCHEST PORTABLE SINGLE VIEW - 02/15/2012 [facility] RESULT: INDICATION: Respiratory distressCOMPARISON: 02/14/2012FINDINGS:Again seen is patchy infiltrate in the bases bilaterally, leftgreater than right. The heart remains stable. There is nopulmonary edema, pneumothorax or pleural effusion. Tubes andlines are stable.IMPRESSION: Unchanged basilar infiltrates.Dictated on workstation # [id number] BY: MARZENA LYLES M.D., RADIOLOGISTELECTRONICALLY SIGNED BY: MARZENA LYLES M.D., RADIOLOGISTD Feb 15 2012 6:30AT RF : Feb 15 2012 9:14AS Feb 15 2012 9:14A Radiology Report from [id number] on 11:06:00 Final ReportADMITTING DIAGNOSIS: Renal Failure Resp. assessmentCHEST PORTABLE SINGLE VIEW - 02/16/2012 [facility] RESULT: INDICATION: Shortness of breath.Comparison made with prior examination from February 15, 2012FINDINGS: The heart size is normal. There is some venouscongestion. There are bibasilar infiltrates. There is no pleuraleffusion or pneumothorax. The mediastinum is unremarkable.IMPRESSION: Bibasilar pulmonary infiltrates.Mild central pulmonary venous congestion.Dictated on workstation # [id number] BY: DEZ ROGERS II, M.D., RADIOLOGISTELECTRONICALLY SIGNED BY: DEZ ROGERS II, M.D., RADIOLOGISTD Feb 16 2012 7:50AT JUWAN: Feb 16 2012 11:03AS Feb 16 2012 11:03A Radiology Report from [id number] on 08:56:00 Final ReportADMITTING DIAGNOSIS: Renal Failure to assess resp. statusCHEST PORTABLE SINGLE VIEW - 02/17/2012 [facility] RESULT: INDICATION: Respiratory distress.EXAMINATION: Portable chest at 6:04 a.m.FINDINGS: The right upper extremity PICC line tip projects overthe SVC. The heart size and pulmonary vascularity are normal.There has been some interval improvement of bibasilarinterstitial infiltrates compared to the previous day.IMPRESSION: Improving basilar pulmonary infiltrates.Dictated on workstation # [id number] BY: HARRY NARAYAN M.D., RADIOLOGISTELECTRONICALLY SIGNED BY: HARRY NARAYAN M.D., RADIOLOGISTD Feb 17 2012 8:37AT IMS: Feb 17 2012 8:54AS Feb 17 2012 8:54A Radiology Report from [id number] on 08:13:00 Final ReportADMITTING DIAGNOSIS: Renal Failure to assess resp. statusCHEST PORTABLE SINGLE VIEW - 02/18/2012 [facility] RESULT: INDICATION: Pulmonary infiltrates.Time of exam: 5:33 a.m.Correlation is made with prior study one day earlier. Rightupper extremity line has tip overlying the SVC. Heart size isstable. Basilar infiltrates appear to be slightly worse ontoday''s study. Minimal infiltrate right midlung is also noted.There is no effusion or pneumothorax.IMPRESSION: Slight increase in basilar infiltrates when comparedto exam one day earlier.Dictated on workstation # [id number] BY: JOSUE CORDOVA M.D., RADIOLOGISTELECTRONICALLY SIGNED BY: JOSUE CORDOVA M.D., RADIOLOGISTD Feb 18 2012 6:25AT JUWAN: Feb 18 2012 8:11AS Feb 18 2012 8:11A Radiology Report from [id number] on 012 08:16:00 Final ReportADMITTING DIAGNOSIS: Renal Failure today- swallow failedMODIFIED BARIUM SWALLOW - 02/18/2012 [facility] RESULT: INDICATION: Dysphagia.EXAMINATION: Video fluoroscopy was performed in the routinefashion, with speech pathology, in the upright and lateralposition.Patient was given thin barium, nectar material, as well aspudding material and then barium-coated cookie. There is weakand discoordinated swallowing with evidence of silent aspirationwith all materials. There is no residual in the pharyngealrecesses.IMPRESSION: Evidence of aspiration, as above.Dictated on workstation # [id number] BY: CYNTHIA FERREIRA M.D., RADIOLOGISTELECTRONICALLY SIGNED BY: CYNTHIA FERREIRA M.D., RADIOLOGISTD Feb 18 2012 4:27PT AS6: Feb 19 2012 8:14AS Feb 19 2012 8:14A Radiology Report from [id number] on 012 08:21:00 Final ReportADMITTING DIAGNOSIS: Renal Failure change in mental status - CT of head without contrastCT HEAD (W/O CONTRAST ) - 02/21/2012 [facility] RESULT: INDICATION: Change in mental status.COMPARISON: I have no priors for comparison.TECHNIQUE: Noncontrast-enhanced head CT performed.FINDINGS: There is no hemorrhage or acute-appearingabnormalities. There is a focal encephalomalacia in leftcerebellar hemisphere, consistent with an old insult.Generalized cerebrocortical atrophy and chronic periventricularwhite matter small vessel sequelae noted. There is no sulcaleffacement. No evidence of edema. No acute finding. The orbits,sinuses, and calvarium appeared nonacute. 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 No hemorrhage oracute-appearing abnormality.Dictated on workstation # [id number] BY: DEMETRIUS KUMAR M.D., RADIOLOGISTELECTRONICALLY SIGNED BY: DEMETRIUS KUMAR M.D., RADIOLOGISTD Feb 21 2012 4:14PT AS6: Feb 22 2012 8:19AS Feb 22 2012 8:19A Encounters ACCT No. Visit Date/Time Discharge Status Pt. Type Provider Facility Loc./Unit Complaint [id number] 02/28/2016 10:00:00 02/28/2016 10:00 :00 DIS Outpatient JUAN MCCABE MD, [facility] OTHER [id number] 02/23/2016 10:18:00 02/23/2016 10:18 :00 DIS Outpatient JUAN MCCABE MD, [facility] OTHER [id number] 07/07/2015 18:20:00 07/19/2015 13:25 :00 DIS Inpatient MARQUITA PHELAN, [facility] [id number] 07/07/2015 18:20:00 07/07/2015 18:20 :00 DIS Outpatient DWAINE PHELAN, [facility] OTHER [id number] 02/11/2015 10:20:00 02/11/2015 10:20 :00 DIS Outpatient JUANITO PHELAN, [facility] OTHER [id number] 11/16/2014 10:59:00 11/16/2014 10:59 :00 DIS Outpatient JUANITO PHELAN, [facility] OTHER [id number] 09/09/2014 14:58:00 09/09/2014 23:59 :59 CLS Outpatient JUANITO PHELAN, [facility] OTHER [id number] 02/25/2014 12:39:00 02/25/2014 12:39 :00 DIS Outpatient JUANITO PHELAN, [facility] OTHER [id number] 12/22/2013 11:36:00 12/22/2013 11:36 :00 DIS Outpatient JUANITO PHELAN, [facility] OTHER [id number] 10/19/2013 05:30:00 10/19/2013 05:30 :00 DIS Outpatient LEN PHELAN, [facility] OTHER [id number] 10/19/2013 04:03:00 10/19/2013 05:30 :00 DIS Emergency JUANITO PHELAN, [facility] ER [id number] 10/19/2013 03:32:00 10/19/2013 03:32 :00 DIS Outpatient LEN PHELAN, [facility] OTHER [id number] 10/07/2013 12:46:00 10/07/2013 12:46 :00 DIS Outpatient JUANITO PHELAN, [facility] OTHER [id number] 07/22/2013 10:23:00 07/22/2013 10:23 :00 DIS Outpatient JUANITO PHELAN, [facility] OTHER [id number] 07/02/2013 16:02:00 07/02/2013 16:02 :00 DIS Outpatient JUANITO PHELAN, [facility] OTHER [id number] 06/09/2013 06:29:00 06/09/2013 06:29 :00 DIS Outpatient JUANITO PHELAN, [facility] GLC [id number] 06/02/2013 09:51:00 06/02/2013 09:51 :00 DIS Outpatient JUANITO PHELAN, [facility] OTHER [id number] 05/25/2013 11:01:00 05/25/2013 11:01 :00 DIS Outpatient JUANITO PHELAN, [facility] GLC [id number] 05/05/2013 10:00:00 05/05/2013 10:00 :00 DIS Outpatient JUANITO PHELAN, [facility] GLC [id number] 04/27/2013 14:14:00 04/27/2013 14:14 :00 DIS Outpatient JUANITO PHELAN, [facility] GLC [id number] 03/31/2013 09:41:00 03/31/2013 09:41 :00 DIS Outpatient JUANITO PHELAN, [facility] GLC [id number] 03/10/2013 08:20:00 03/10/2013 08:20 :00 DIS Outpatient JUANITO PHELAN, [facility] GLC [id number] 03/02/2013 15:42:00 03/02/2013 15:42 :00 DIS Outpatient JUANITO PHELAN, [facility] [id number] 02/27/2013 08:22:00 02/27/2013 08:22 :00 DIS Outpatient JUANITO PHELAN, [facility] GLC [id number] 02/25/2013 07:01:00 02/25/2013 07:01 :00 DIS Outpatient JUANITO PHELAN, [facility] [id number] 02/23/2013 08:17:00 02/23/2013 08:17 :00 DIS Outpatient JUANITO PHELAN, [facility] [id number] 02/22/2013 06:31:00 02/22/2013 06:31 :00 DIS Outpatient JUANITO PHELAN, [facility] [id number] 02/21/2013 09:14:00 02/21/2013 09:14 :00 DIS Outpatient JUANITO PHELAN, [facility] [id number] 02/20/2013 08:29:00 02/20/2013 08:29 :00 DIS Outpatient JUANITO PHELAN, [facility] GLC [id number] 02/19/2013 08:19:00 02/19/2013 08:19 :00 DIS Outpatient JUANITO PHELAN, [facility] GLC [id number] 02/16/2013 09:47:00 02/16/2013 09:47 :00 DIS Outpatient JUANITO PHELAN, [facility] GLC [id number] 02/12/2013 06:11:00 02/12/2013 06:11 :00 DIS Outpatient JUANITO PHELAN, [facility] GLC [id number] 02/11/2013 06:42:00 02/11/2013 06:42 :00 DIS Outpatient JUANITO PHELAN, [facility] GLC [id number] 02/10/2013 06:27:00 02/10/2013 06:27 :00 DIS Outpatient JUANITO PHELAN, [facility] GLC [id number] 02/06/2013 09:27:00 02/06/2013 09:27 :00 DIS Outpatient JUANITO PHELAN, [facility] GLC [id number] 02/02/2013 06:12:00 02/02/2013 06:12 :00 DIS Outpatient JUANITO PHELAN, [facility] [id number] 01/29/2013 06:30:00 01/29/2013 06:30 :00 DIS Outpatient JUANITO PHELAN, [facility] GLC [id number] 01/26/2013 06:37:00 01/26/2013 06:37 :00 DIS Outpatient JUANITO PHELAN, [facility] GLC [id number] 01/23/2013 06:48:00 01/23/2013 06:48 :00 DIS Outpatient JUANITO PHELAN, [facility] [id number] 01/14/2013 09:13:00 01/14/2013 09:13 :00 DIS Outpatient JUANITO PHELAN, [facility] OTHER [id number] 12/30/2012 12:59:00 12/30/2012 12:59 :00 DIS Outpatient JUANITO PHELAN, [facility] GLC [id number] 12/03/2012 06:49:00 12/03/2012 06:49 :00 DIS Outpatient JUANITO PHELAN, [facility] [id number] 11/07/2012 06:29:00 11/07/2012 06:29 :00 DIS Outpatient JUANITO PHELAN, [facility] GLC [id number] 10/29/2012 12:05:00 10/29/2012 12:05 :00 DIS Outpatient JUANITO PHELAN, [facility] OTHER [id number] 10/08/2012 11:32:00 10/08/2012 11:32 :00 DIS Outpatient JUANITO PHELAN, [facility] OTHER [id number] 09/24/2012 08:23:00 09/24/2012 08:23 :00 DIS Outpatient JUANITO PHELAN, [facility] GLC [id number] 09/17/2012 12:27:00 09/17/2012 12:27 :00 DIS Outpatient JUANITO PHELAN, [facility] OTHER [id number] 08/26/2012 09:54:00 08/26/2012 09:54 :00 DIS Outpatient JUANITO PHELAN, [facility] GLC [id number] 08/06/2012 09:51:00 08/06/2012 09:51 :00 DIS Outpatient JUANITO PHELAN, [facility] OTHER [id number] 07/30/2012 23:15:00 08/03/2012 15:30 :00 DIS Inpatient LEN PHELAN, [facility] NS1 [id number] 07/30/2012 21:30:00 07/30/2012 23:15 :00 DIS Emergency JUANITO PHELAN, [facility] OTHER [id number] 07/30/2012 22:20:00 07/30/2012 22:20 :00 DIS Outpatient LEN PHELAN, [facility] OTHER [id number] 07/30/2012 21:14:00 07/30/2012 21:14 :00 DIS Outpatient LEN PHELAN, [facility] OTHER [id number] 07/29/2012 06:12:00 07/29/2012 06:12 :00 DIS Outpatient JUANITO PHELAN, [facility] GLC [id number] 07/25/2012 11:22:00 07/25/2012 11:22 :00 DIS Outpatient JUANITO PHELAN, [facility] GLC [id number] 07/15/2012 16:26:00 07/15/2012 16:26 :00 DIS Outpatient JUANITO PHELAN, [facility] GLC [id number] 06/10/2012 12:26:00 06/10/2012 12:26 :00 DIS Outpatient JUANITO PHELAN, [facility] GLC [id number] 06/09/2012 06:36:00 06/09/2012 06:36 :00 DIS Outpatient JUANITO PHELAN, [facility] GLC [id number] 05/29/2012 11:46:00 05/29/2012 11:46 :00 DIS Outpatient JUANITO PHELNA, [facility] GLC [id number] 05/20/2012 07:51:00 05/20/2012 07:51 :00 DIS Outpatient JUANITO PHELAN, [facility] GLC [id number] 05/12/2012 15:10:00 05/14/2012 17:30 :00 DIS Inpatient JUANITO PHELAN, [facility] NS1 [id number] 05/12/2012 13:09:00 05/12/2012 13:09 :00 DIS Outpatient JUANITO PHELAN, [facility] OTHER [id number] 05/05/2012 08:05:00 05/05/2012 08:05 :00 DIS Outpatient JUANITO PHELAN, [facility] [id number] 04/28/2012 07:41:00 04/28/2012 07:41 :00 DIS Outpatient JUANITO PHELAN, [facility] [id number] 04/25/2012 09:03:00 04/25/2012 09:03 :00 DIS Outpatient JUANITO PHELAN, [facility] [id number] 04/21/2012 06:34:00 04/21/2012 06:34 :00 DIS Outpatient JUANITO PHEALN, [facility] [id number] 04/07/2012 14:25:00 04/14/2012 17:00 :00 DIS Inpatient JUANITO PHELAN, [facility] NS1 [id number] 04/10/2012 10:19:00 04/10/2012 23:59 :59 CLS Emergency KRISTIN SOLOMON MD [id number] 04/10/2012 10:19:00 04/10/2012 23:59 :59 CLS Emergency RAMIRO SOLOMON MDO [place] [id number] 04/10/2012 10:19:00 04/10/2012 23:59 :59 CLS Outpatient KRISTIN SOLOMON MD [id number] 04/10/2012 10:19:00 04/10/2012 23:59 :59 CLS Outpatient JUANITO PHELAN, [facility] OTHER [id number] 04/10/2012 10:19:00 04/10/2012 23:59 :59 CLS Emergency FREDY HARRINGTON MD [id number] 04/10/2012 10:19:00 04/10/2012 23:59 :59 CLS Outpatient KRISTIN SOLOMON MD [id number] 04/07/2012 12:40:00 04/07/2012 14:25 :00 DIS Emergency BACANI MD, [facility] ER [id number] 04/07/2012 13:00:00 04/07/2012 13:00 :00 DIS Outpatient JUANITO PHELAN, [facility] OTHER [id number] 04/07/2012 12:28:00 04/07/2012 12:28 :00 DIS Emergency JUANITO PHELAN, [facility] ER [id number] 01/27/2012 11:25:00 01/27/2012 23:59 :59 CLS Outpatient KRISTIN SOLOMON MD [id number] 01/26/2012 23:45:00 01/26/2012 23:59 :59 CLS Outpatient KRISTIN SOLOMON MD [id number] 01/26/2012 23:00:00 01/26/2012 23:59 :59 CLS Emergency KRISTIN SOLOMON MD [id number] 01/26/2012 22:26:00 01/26/2012 23:59 :59 CLS Outpatient KRISTIN SOLOMON MD [id number] 01/16/2012 15:55:00 01/16/2012 23:59 :59 CLS Outpatient KRISTIN SOLOMON MD [id number] 01/16/2012 14:50:00 01/16/2012 23:59 :59 CLS Outpatient FREDY HARRINGTON MD [id number] 01/16/2012 14:21:00 01/16/2012 23:59 :59 CLS Outpatient FREDY HARRINGTON MD [id number] 01/16/2012 13:57:00 01/16/2012 23:59 :59 CLS Outpatient FREDY HARRINGTON MD [id number] 01/01/2012 15:52:00 01/01/2012 23:59 :59 CLS Outpatient KRISTIN SOLOMON MD [id number] 12/14/2011 08:03:00 12/14/2011 23:59 :59 CLS Outpatient KRISTIN SOLOMON MD [id number] 12/14/2011 08:03:00 12/14/2011 23:59 :59 CLS Outpatient KRISTIN SOLOMON MD [id number] 12/07/2011 12:06:00 12/07/2011 23:59 :59 CLS Outpatient KRISTIN SOLOMON MD [id number] 12/03/2011 11:06:00 12/03/2011 23:59 :59 CLS Outpatient KRISTIN SOLOMON MD [id number] 11/27/2011 12:00:00 11/27/2011 23:59 :59 CLS Outpatient JERONIMO PHELAN JAELYNANTONIA [place] [id number] 11/26/2011 18:16:00 11/26/2011 23:59 :59 CLS Outpatient KRISTIN SOLOMON MD [id number] 11/22/2011 09:45:00 11/22/2011 23:59 :59 CLS Outpatient KRISTIN SOLOMON MD [id number] 11/22/2011 09:45:00 11/22/2011 23:59 :59 CLS Outpatient KRISTIN SOLOMON MD [id number] 11/08/2011 16:25:00 11/08/2011 23:59 :59 CLS Outpatient KRISTIN SOLOMON MD [id number] 11/08/2011 15:05:00 11/08/2011 23:59 :59 CLS Emergency KRISTIN SOLOMON MD [id number] 11/08/2011 14:40:00 11/08/2011 23:59 :59 CLS Outpatient KRISTIN SOLOMON MD [id number] 11/08/2011 14:22:00 11/08/2011 23:59 :59 CLS Outpatient JOANNA ISIDRO MD [id number] 10/13/2011 23:00:00 10/13/2011 23:59 :59 CLS Outpatient KRISTIN SOLOMON MD [id number] 10/13/2011 22:15:00 10/13/2011 23:59 :59 CLS Emergency KRISTIN SOLOMON MD [id number] 10/10/2011 14:53:00 10/10/2011 23:59 :59 CLS Outpatient KRISTIN SOLOMON MD [id number] 09/30/2011 10:35:00 09/30/2011 23:59 :59 CLS Emergency KRISTIN SOLOMON MD [id number] 09/30/2011 10:35:00 09/30/2011 23:59 :59 CLS Outpatient KEIKO SEVERINO [id number] 09/04/2011 08:54:00 09/04/2011 23:59 :59 CLS Outpatient KRISTIN SOLOMON MD [id number] 09/03/2011 09:00:00 09/03/2011 23:59 :59 CLS Outpatient KRISTIN SOLOMON MD [id number] 09/02/2011 08:52:00 09/02/2011 23:59 :59 CLS Outpatient KRISTIN SOLOMON MD [id number] 09/01/2011 08:28:00 09/01/2011 23:59 :59 CLS Outpatient FREDY HARRINGTON MD [id number] 08/31/2011 09:03:00 08/31/2011 23:59 :59 CLS Outpatient KRISTIN SOLOMON MD [id number] 08/30/2011 08:55:00 08/30/2011 23:59 :59 CLS Outpatient KRISTIN SOLOMON MD [id number] 08/29/2011 08:51:00 08/29/2011 23:59 :59 CLS Outpatient KRISTIN SOLOMON MD [id number] 08/28/2011 14:42:00 08/28/2011 23:59 :59 CLS Outpatient KRISTIN SOLOMON MD [id number] 08/20/2011 15:06:00 08/20/2011 23:59 :59 CLS Outpatient KRISTIN SOLOMON MD [id number] 07/26/2011 11:30:00 07/26/2011 23:59 :59 CLS Outpatient KRISTIN SOLOMON MD [id number] 07/26/2011 11:30:00 07/26/2011 23:59 :59 CLS Outpatient KRISTIN SOLOMON MD [id number] 07/12/2011 10:00:00 07/12/2011 23:59 :59 CLS Outpatient KRISTIN SOLOMON MD [id number] 07/12/2011 10:00:00 07/12/2011 23:59 :59 CLS Outpatient KRISTIN SOLOMON MD [id number] 07/03/2011 15:00:00 07/03/2011 23:59 :59 CLS Outpatient KRISTIN SOLOMON MD [id number] 06/28/2011 12:15:00 06/28/2011 23:59 :59 CLS Outpatient KRISTIN SOLOMON MD [id number] 06/28/2011 12:15:00 06/28/2011 23:59 :59 CLS Outpatient KRISTIN SOLOMON MD [id number] 05/31/2011 08:19:00 05/31/2011 23:59 :59 CLS Outpatient KRISTIN SOLOMON MD [id number] 05/29/2011 16:02:00 05/29/2011 23:59 :59 CLS Outpatient KRISTIN SOLOMON MD [id number] 05/21/2011 23:20:00 05/21/2011 23:59 :59 CLS Outpatient KRISTIN SOLOMON MD [id number] 05/20/2011 23:20:00 05/20/2011 23:59 :59 CLS Emergency KRISTIN SOLOMON MD [id number] 05/20/2011 23:20:00 05/20/2011 23:59 :59 CLS Outpatient ESTEFANIA CUETO DO [id number] 05/20/2011 22:53:00 05/20/2011 23:59 :59 CLS Outpatient ESTEFANIA CUETO DO [id number] 05/07/2011 08:10:00 05/07/2011 23:59 :59 CLS Emergency KRISTIN SOLOMON MD [id number] 05/07/2011 07:40:00 05/07/2011 23:59 :59 CLS Outpatient KRISTIN SOLOMON MD [id number] 05/06/2011 15:45:00 05/06/2011 23:59 :59 CLS Emergency KRISTIN SOLOMON MD [id number] 05/06/2011 15:45:00 05/06/2011 23:59 :59 CLS Outpatient FREDY HARRINGTON MD [id number] 05/06/2011 15:23:00 05/06/2011 23:59 :59 CLS Outpatient FREDY HARRINGTON MD [id number] 05/01/2011 09:30:00 05/01/2011 23:59 :59 CLS Outpatient ANDRES DECKER MD [id number] 03/21/2011 16:40:00 03/21/2011 23:59 :59 CLS Outpatient KRISTIN SOLOMON MD [id number] 03/21/2011 15:10:00 03/21/2011 23:59 :59 CLS Outpatient KRISTIN SOLOMON MD [id number] 02/05/2011 18:00:00 02/05/2011 23:59 :59 CLS Outpatient KRITSIN SOLOMON MD [id number] 01/26/2011 14:10:00 01/26/2011 23:59 :59 CLS Outpatient KRISTIN SOLOMON MD [id number] 12/28/2010 16:13:00 12/28/2010 23:59 :59 CLS Outpatient KRISTIN SOLOMON MD [id number] 12/06/2010 15:15:00 12/06/2010 23:59 :59 CLS Outpatient KRISTIN SOLOMON MD [id number] 11/29/2010 13:25:00 11/29/2010 23:59 :59 CLS Outpatient KRISTIN SOLOMON MD [id number] 11/23/2010 15:10:00 11/23/2010 23:59 :59 CLS Outpatient KRISTIN SOLOMON MD [id number] 11/13/2010 13:27:00 11/13/2010 23:59 :59 CLS Outpatient JOANNA ISIDRO MD [id number] 11/13/2010 12:00:00 11/13/2010 23:59 :59 CLS Emergency KRISTIN SOLOMON MD [id number] 10/24/2010 10:30:00 10/24/2010 23:59 :59 CLS Outpatient ANDRES DECKER MD [id number] 09/25/2010 11:07:00 09/25/2010 23:59 :59 CLS Outpatient KRISTIN SOLOMON MD [id number] 09/25/2010 11:05:00 09/25/2010 23:59 :59 CLS Emergency KRISTIN SOLOMON MD [id number] 09/25/2010 10:42:00 09/25/2010 23:59 :59 CLS Outpatient KRISTIN SOLOMON MD [id number] 09/12/2010 09:30:00 09/12/2010 23:59 :59 CLS Outpatient DARA AGUSTIN MD [id number] 2010 08:40:00 2010 23:59 :59 CLS Outpatient DARA AGUSTIN MD [id number] 07/12/2010 09:32:00 07/12/2010 23:59 :59 CLS Outpatient KRISTIN SOLOMON MD [id number] 07/11/2010 10:50:00 07/11/2010 23:59 :59 CLS Outpatient DARA AGUSTIN MD [id number] 06/07/2010 13:45:00 06/07/2010 23:59 :59 CLS Emergency KRISTIN SOLOMON MD [id number] 06/07/2010 13:20:00 06/07/2010 23:59 :59 CLS Outpatient KRISTIN SOLOMON MD [id number] 06/01/2010 15:58:00 06/01/2010 23:59 :59 CLS Outpatient KRISTIN SOLOMON MD [id number] 04/05/2010 15:07:00 04/05/2010 23:59 :59 CLS Outpatient KRISTIN SOLOMON MD [id number] 02/24/2010 12:57:00 02/24/2010 23:59 :59 CLS Outpatient KRISTIN SOLOMON MD [id number] 01/27/2012 01:25:00 Inpatient KRISTIN SOLOMON MD [id number] 11/08/2011 16:50:00 Inpatient KRISTIN SOLOMON MD [id number] 05/21/2011 01:00:00 Inpatient KRISTIN SOLOMON MD [id number] 03/23/2011 09:30:00 Inpatient KRISTIN SOLOMON MD [id number] 11/13/2010 13:45:00 Inpatient KRISTIN SOLOMON MD [id number] 05/10/2010 15:50:00 Inpatient MARQUITA PHELAN, EBEN Kaufman [id number] 05/03/2010 17:10:00 Inpatient NIKOLE PHELAN, DARA R [id number] 01/27/2012 22:27:00 02/22/20 12 15:54:00 DIS Inpatient Nash PHELAN, Curtis Hortonma Via [facility] on [address] [id number] 05/19/2015 10:50:13 05/19/2015 23:59: 59 CLS Outpatient Adriano, V S [id number] 01/18/2015 13:57:00 23:59:00 DIS Outpatient Vinnie Monterroso Via [facility] ENT PO 1 WK L TYMPANO MASTOIDECT JESSICA [id number] 01/10/2015 06:12:00 15:22:00 DIS Outpatient Vinnie Monterroso Via [facility] ASC Surgery SURGERY [id number] 12/27/2014 13:35:00 23:59:00 DIS Outpatient Vinnie Monterroso Via [facility] ENT RCK 1 MO SINUS [id number] 12/01/2014 15:42:00 23:59:00 DIS Outpatient RegehVinnie mills Via [facility] ENT po ess [id number] 11/26/2014 07:46:00 11:39:00 DIS Outpatient RegehVinnie mills Via [facility] ASC Surgery SURGERY [id number] 10/27/2014 14:29:00 23:59:00 DIS Outpatient Michelle Duque V ia [facility] Audio Michelle - Medicare - Regehr [id number] 10/27/2014 12:42:00 23:59:00 DIS Outpatient RegehVinnie mills Via [facility] ENT CHECK EARS AND SINUS [id number] 12/04/2018 15:34:00 23:59:59 CLS Outpatient FIORELLA ROQUE MD Via [facility] ER FS SOB [id number] 09/03/2018 10:56:00 12:55:00 DIS Inpatient ROZ WILKINS MD Via [facility] 4TH SEPTIC SHOCK [id number] 07/11/2018 10:27:00 12:30:00 DIS Emergency SOMMER STEFF CLARK Via [facility] ER FS SOB [id number] 05/27/2018 19:36:00 13:35:00 DIS Inpatient FIORELLA ROQUE MD Via [facility] 4TH RIGHT MIDDLE LOBE PNEUM ONIA; COPD W/ EXACERBATION [id number] 05/20/2018 10:40:00 23:59:59 CLS Outpatient BELLA KARIMI APRN [facility] WOUNDCARE [id number] 05/16/2018 10:38:00 23:59:59 CLS Outpatient BELLA KARIMI APRN [facility] RAD FS [id number] 05/06/2018 11:03:00 23:59:59 CLS Outpatient BELLA KARIMI APRN [facility] WOUNDCARE [id number] 04/29/2018 12:29:00 23:59:59 CLS Outpatient BELLA KARIMI APRN [facility] RAD PRESSURE [facility] [id number] 04/29/2018 10:44:00 23:59:59 CLS Outpatient BELLA KARIMI APRN [facility] WOUNDCARE [id number] 04/01/2018 08:09:00 23:59:59 CLS Outpatient BELLA KARIMI APRN [facility] WOUNDCARE [id number] 05/24/2019 03:11:00 Document Registration
--- OUTSIDE RECORDS SUMMARY | 2019-05-24 23:18 | XMS REPORT | Continuity of Care Document ---
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 JUANITO PHELAN [facility] 05/07/2011 72464 [facility] GENCY DEPT VISIT JUANITO PHELAN [facility] 05/07/2011 [id number] KETO ROLAC TROMETHAMINE INJ JUANTIO PHELAN [facility] 05/07/2011 A0425 GROU ND OLINDA SOLOMON MD [facility] 05/07/2011 A0427 ALS1 EMERGENCY JUANITO PHELAN [facility] 05/07/2011 48972 [facility] GENCY DEPT VISIT JUANITO PHELAN [facility] 05/20/2011 A0425 GROU ND ESTEFANIA WHITTINGTON DO 05/20/2011 A0427 ALS1 EMERGENCY ESTEFANIA CUETO DO 05/20/2011 83251 [facility]PT VISIT ESTEFANIA CUETO DO 05/20/2011 71260 ROUT INE VENIPUNCTURE JUANITO PHELAN [facility] 05/21/2011 99503 INSE RT TEMP BLADDER CATH JUANITO PHELAN [facility] 05/21/[address] H EAD/BRAIN W/O ANA SOLOMON MD [facility] 05/21/2011 97457 CHES T X-RAY JUANITO PHELAN [facility] 05/21/[address] N PRAFUL SPINE W/O ANA SOLOMON MD [facility] 05/21/2011 57867 COMP REHEN METABOLIC PANEL JUANITO PHELAN KRISTIN Burke 05/21/2011 08643 URIN ALYSIS, AUTO W/SCOPE JUANITO PHELAN [facility] 05/21/2011 40381 ASSA Y OF ETHANOL JUANITO PHELAN KRISTIN Burke 05/21/2011 96472 ASSA Y OF CK (CPK) JUANITO PHELAN [facility] 05/21/2011 76159 [facility]RO TRINH [facility] 05/21/2011 24457 NATR IURETIC PEPTIDE JUANITO PHELAN KRISTIN C 05/21/2011 80100 ASSA Y OF TROPONIN, QUANT JUANITO PHELAN KRISTIN C 05/21/2011 86155 COMP LETE CBC W/AUTO DIFF WBC JUANITO PHELAN KRISTIN C 05/21/2011 02772 ELEC TROCARDIOGRAM, TRACING JUANITO PHELAN KRISTIN C 05/21/2011 36584 HYDR ATION IV INFUSION, INIT JUANITO PHELAN KRITSIN C 05/21/2011 17842 HYDR ATE IV INFUSION, ADD-ON JUANITO PHELAN KRISTIN C 05/21/2011 G0431 DRUG SCREEN SINGLE CLASS JUANITO PHELAN KRISTIN C 05/21/2011 06605 ELEC TROCARDIOGRAM REPORT JOANNA ISIDRO MD 05/21/2011 89942 ROUT INE VENIPUNCTURE JUANITO PHELAN KRISTIN C 05/29/2011 12088 X-RA Y EXAM OF LOWER SPINE JUANITO PHELAN KRISTIN C 05/29/2011 04308 X-RA Y EXAM OF PELVIS JUANITO PHELAN KRISTIN C 05/29/2011 29105 COMP REHEN METABOLIC PANEL TEX SOLOMON MDWALDO C 05/29/2011 98353 COMP LETE CBC W/AUTO DIFF WBC JUANITO PHELAN KRISTIN C 05/29/2011 70184 MRI LUMBAR SPINE W/O & W/DYE JUANITO PHELAN KRISTIN C 05/31/[address] SPINE L/S (CD) JUANITO PHELAN KRISTIN C 06/28/2011 30989 FLUO ROGUIDE FOR SPINE INJECT JUANITO PHELAN KRISTIN C 06/28/2011 J1040 METH LPREDNISOLONE ACETATE JUANITO PHELAN KRISTIN C 06/28/2011 Q9961 HOCM 250-299MG/ML IODINE,1ML JUANITO PHELAN KRISTIN C 06/28/[address] SPINE L/S (CD) SHIRAZ SCHWARTZ CRNA 06/28/2011 24703 ROUT INE VENIPUNCTURE JUANITO PHELAN KRISTIN C 07/03/2011 42823 COMP REHEN METABOLIC PANEL JUANITO PHELAN KRISTIN C 07/03/2011 95916 CHAUNCEY MIN B-12 JUANITO PHELAN KRISTIN C 07/03/2011 53751 ASSA Y OF BLOOD/URIC ACID JUANITO PHELAN KRISTIN C 07/03/2011 76391 COMP LETE CBC W/AUTO DIFF WBC JUANITO PHELAN KRISTIN C 07/03/[address] SPINE L/S (CD) JUANITO PHELAN KRISTIN C 07/12/2011 86894 FLUO ROGUIDE FOR SPINE INJECT JUANITO PHELAN KRISTIN C 07/12/2011 J1040 METH LPREDNISOLONE ACETATE JUANITO PHELAN KRISTIN C 07/12/2011 Q9961 HOCM 250-299MG/ML IODINE,1ML JUANITO PHELAN KRISTIN C 07/12/[address] SPINE L/S (CD) ABBIE RINCON 07/12/[address] SPINE L/S (CD) JUANITO PHELAN [facility] 07/26/2011 30688 FLUO ROGUIDE FOR SPINE INJECT JUANITO PHELAN KRISTIN C 07/26/2011 J1040 METH LPREDNISOLONE ACETATE JUANITO PHELAN KRISTIN C 07/26/2011 Q9961 HOCM 250-299MG/ML IODINE,1ML JUANITO PHELAN KRISTIN C 07/26/[address] SPINE L/S (CD) SHIRAZ SCHWARTZ CRNA 07/26/2011 60317 ROUT INE VENIPUNCTURE JUANITO PHELAN KRISTIN C 08/20/2011 59751 COMP REHEN METABOLIC PANEL JUANITO PHELAN KRISTIN C 08/20/2011 67135 COMP LETE CBC W/AUTO DIFF WBC JUANITO PHELAN KRISTIN C 08/20/2011 59895 META BOLIC PANEL TOTAL CA JUANITO PHELAN KRISTIN C 08/28/2011 58398 THER /PROPH/DIAG IV INF, INIT JUANITO PHELAN KRISTIN C 08/28/2011 J1580 GARA MYCIN GENTAMICIN INJ JUANITO PHELAN KRISTIN C 08/28/2011 18623 THER /PROPH/DIAG IV INF ANDRES SOLOMON MD KRISTIN C 08/29/2011 J1580 GARA MYCIN GENTAMICIN INJ JUANITO PHELAN KRISTIN 08/29/2011 72358 ROUT INE VENIPUNCTURE JUANITO HPELAN [facility] 08/30/2011 53063 META BOLIC PANEL TOTAL CA JUANITO PHELAN, [facility] 08/30/2011 65131 ASSA Y OF GENTAMICIN JUANITO PHELAN, [facility] 08/30/2011 14464 THER /PROPH/DIAG IV INF ADDON JUANITO PHELAN, [facility] 08/30/2011 00601 THER /PROPH/DIAG INJ, SC/IM JUANITO PHELAN, [facility] 08/30/2011 J1580 GARA MYCIN GENTAMICIN INJ JUANITO PHELAN [facility] 08/30/2011 84860 THER /PROPH/DIAG INJ, SC/IM JUANITO PHELAN [facility] 08/31/2011 J1580 GARA MYCIN GENTAMICIN INJ JUANITO PHELAN [facility] 08/31/2011 98356 THER /PROPH/DIAG INJ, SC/IM FREDY HARRINGTON MD 09/01/2011 J1580 GARA MYCIN GENTAMICIN INJ FREDY HARRINGTON MD 09/01/2011 03835 THER /PROPH/DIAG INJ, SC/IM JUANITO PHELAN [facility] 09/02/2011 J1580 GARA MYCIN GENTAMICIN INJ JUANITO PHELAN [facility] 09/02/2011 67673 ROUT INE VENIPUNCTURE JUANITO PHELAN, [facility] 09/03/2011 46459 COMP REHEN METABOLIC PANEL JUANITO PHELAN, [facility] 09/03/2011 12837 ASSA Y OF GENTAMICIN JUANITO PHELAN [facility] 09/03/2011 18987 COMP LETE CBC W/AUTO DIFF WBC JUANITO PHELAN [facility] 09/03/2011 17718 THER /PROPH/DIAG INJ, SC/IM JUANITO PHELAN [facility] 09/03/2011 J1580 GARA MYCIN GENTAMICIN INJ JUANITO PHELAN [facility] 09/03/2011 49240 THER /PROPH/DIAG INJ, SC/IM JUANITO PHELAN, [facility] 09/04/2011 J1580 GARA MYCIN GENTAMICIN INJ JUANITO PHELAN [facility] 09/04/2011 55996 REPA IR SUPERFICIAL WOUND(S) KEIKO SEVERINO 09/30/2011 29470 IMMU NIZATION ADMIN KEIKO SEVERINO 09/30/2011 53614 TD V ACCINE > 7, IM KRISTIN SOLOMON MD 09/30/2011 14099 [facility] VISIT [facility] KEIKO L 09/30/2011 75626 [facility] VISIT [facility] KEIKO L 09/30/2011 99265 URIN E CULTURE/COLONY COUNT KRISTNI SOLOMON MD 10/10/2011 87257 URIN E BACTERIA CULTURE KRISTIN SOLOMON MD 10/10/2011 51075 MICR OBE SUSCEPTIBLE, DAVID KRISTIN SOLOMON MD 10/10/2011 78957 REPA IR SUPERFICIAL WOUND(S) KRISTIN SOLOMON MD 10/13/2011 11603 THER /PROPH/DIAG INJ, SC/IM KRISTIN SOLOMON MD 10/13/2011 32585 [facility] GENCY DEPT VISIT KRISTIN SOLOMON MD 10/13/2011 J0696 CEFT RIAXONE SODIUM INJECTION KRISTIN SOLOMON MD 10/13/2011 39749 [facility] GENCY DEPT VISIT KRISTIN SOLOMON MD 10/13/2011 33231 ROUT INE VENIPUNCTURE KRISTIN SOLOMON MD 11/08/2011 41037 CHES T X-RAY KRISTIN SOLOMON MD 11/08/2011 44186 COMP REHEN METABOLIC PANEL KRISTIN SOLOMON MD 11/08/2011 32395 ASSA Y OF CK (CPK) KRISTIN SOLOMON MD 11/08/2011 19734 CREA CATHY, MB FRACTION KRISTIN SOLOMON MD 11/08/2011 74942 ASSA Y OF MAGNESIUM TEX SOLOMON MDWALDJudy Turk 11/08/2011 41438 NATR IURETIC PEPTIDE KRISTIN SOLOMON MD 11/08/2011 15001 ASSA Y OF TROPONIN, QUANT TEX SOLOMON MDWALDJudy Turk 11/08/2011 88907 BL S MEAR W/DIFF WBC COUNT KRISTIN SOLOMON MD 11/08/2011 22280 COMP LETE CBC, AUTOMATED KRISTIN SOLOMON MD 11/08/2011 26356 ELEC TROCARDIOGRAM, TRACING KRISTIN SOLOMON MD 11/08/2011 03918 [facility] GENCY DEPT VISIT KRISTIN SOLOMON MD 11/08/2011 A0425 GROU ND OLINDA SOLOMON MD, KRISTIN C 11/08/2011 A0427 ALS1 EMERGENCY JUANITO PHELAN, KRISTIN C 11/08/2011 24480 ELEC TROCARDIOGRAM REPORT DWAINE PHELAN JOANNA Kristopher 11/08/2011 62205 [facility] GENCY DEPT VISIT JUANITO PHELAN KRISTIN C 11/08/[address] SPINE L/S (CD) JUANITO PHELAN KRISTIN C 11/22/2011 65651 FLUO ROGUIDE FOR SPINE INJECT JUANITO PHELAN KRISTIN C 11/22/2011 J1040 METH LPREDNISOLONE ACETATE JUANITO PHELAN, KRISTIN C 11/22/2011 Q9961 HOCM 250-299MG/ML IODINE,1ML JUANITO PHELAN, KRISTIN C 11/22/[address] SPINE L/S (CD) ABBIE RINCON 11/22/2011 59933 CULT URE AEROBIC IDENTIFY JUANITO PHELAN, KRISTIN C 11/26/2011 20950 URIN E CULTURE/COLONY COUNT JUANITO PHELAN KRISTIN C 11/26/2011 48538 URIN E BACTERIA CULTURE JUANITO PHELAN, KRISTIN C 11/26/2011 24796 MICR OBE SUSCEPTIBLE, DAVID JUANITO PHELAN, KRISTIN C 11/26/2011 13658 OFFI CE/OUTPATIENT VISIT, MATTY DECKER MD, [place] R 11/27/2011 82066 ROUT INE VENIPUNCTURE JUANITO PHELAN KRISTIN C 12/03/2011 16570 COMP REHEN METABOLIC PANEL JUANITO PHELAN KRISTIN C 12/03/2011 09140 COMP LETE CBC W/AUTO DIFF WBC JUANITO PHELAN KRISTIN C 12/03/2011 54872 ROUT INE VENIPUNCTURE JUANITO PHELAN KRISTIN C 12/07/2011 75378 COMP REHEN METABOLIC PANEL JUANITO PHELAN KRISTIN C 12/07/2011 11098 COMP LETE CBC W/AUTO DIFF WBC JUANITO PHELAN, KRISTIN C 12/07/2011 57249 HT M USCLE IMAGE SPECT, ADONIS SOLOMON MD, KRISTIN C 12/14/2011 A9500 TC99 M LUIS SOLOMON MD, KRISTIN C 12/14/2011 J2785 REGA DENOSON INJECTION TEX SOLOMON MDWALDO Burke 12/14/2011 J7050 NS S OLUTION 250 CC INFUSION TEX SOLOMON MDWALDO Burke 12/14/2011 59970 CARD IOVASCULAR STRESS TEST [facility] 12/14/2011 60349 ROUT INE VENIPUNCTURE TEX [facility] 01/01/2012 25822 COMP REHEN METABOLIC PANEL TEX [facility] 01/01/2012 77397 COMP LETE CBC W/AUTO DIFF WBC TEX [facility] 01/01/2012 00811 ROUT INE VENIPUNCTURE TEX [facility] 01/16/2012 62564 CHES T X-RAY TEX [facility] 01/16/2012 94360 COMP REHEN METABOLIC PANEL TEX [facility] 01/16/2012 42899 ASSA Y OF CK (CPK) JUANITO PHELAN [facility] 01/16/2012 42852 PEDRO TRINH FRACTION JUANITO PHELAN [facility] 01/16/2012 94363 NATR IURETIC PEPTIDE TEX [facility] 01/16/2012 42309 ASSA Y OF TROPONIN, QUANT TEX [facility] 01/16/2012 65638 COMP LETE CBC W/AUTO DIFF WBC [facility] 01/16/2012 17484 CULT URE, BACTERIA, OTHER TEX [facility] 01/16/2012 81626 CULT URE SCREEN ONLY TEX [facility] 01/16/2012 92355 CULT URE TYPE, IMMUNOLOGIC JUANITO PHELAN KRISTIN C 01/16/2012 30841 MICR OBE SUSCEPTIBLE, DAVID JUANITO PHELAN KRISTIN C 01/16/2012 59721 SMEA R, GRAM STAIN JUANITO PHELAN KRISTIN C 01/16/2012 50974 ELEC TROCARDIOGRAM, TRACING JUANITO PHELAN KRISTIN C 01/16/2012 21383 EVAL UATE PT USE OF INHALER JUANITO PHELAN KRISTIN 01/16/2012 39917 HYDR ATE IV INFUSION, ADD-ON JUANITO PHELAN KRISTIN Burke 01/16/2012 95779 THER /PROPH/DIAG INJ, IV PUSH TEX [facility] 01/16/2012 71342 [facility] G[facility] DEPT VISIT KRISTIN SOLOMON MD 01/16/2012 G0378 HOSP ITAL OBSERVATION PER HR KRISTIN SOLOMON MD 01/16/2012 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 KRISTIN SOLOMON MD 01/16/2012 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 KRISTIN SOLOMON MD 01/16/2012 J7611 ALBU TEROL NON-COMP CON TEX SOLOMON MDWALDO Burke 01/16/2012 83124 ELEC TROCARDIOGRAM REPORT DWAINE PHELAN, JOANNA L 01/16/2012 A0425 GROU ND FREDY MADRIGAL MD 01/16/2012 A0427 ALS1 EMERGENCY FREDY HARRINGTON MD 01/16/2012 49645 [facility] G[facility] DEPT VISIT FREDY HARRINGTON MD 01/16/2012 19803 ROUT INE VENIPUNCTURE KRISTIN SOLOMON MD 01/17/2012 13141 COMP REHEN METABOLIC PANEL KRISTIN SOLOMON MD 01/17/2012 01660 ASSA Y OF CK (CPK) KRISTIN SOLOMON MD 01/17/2012 97412 CREA CATHY, MB FRACTION KRISTIN SOLOMON MD 01/17/2012 43755 NATR IURETIC PEPTIDE KRISTIN SOLOMON MD 01/17/2012 10475 ASSA Y OF TROPONIN, QUANT KRISTIN SOLOMON MD 01/17/2012 79912 COMP LETE CBC W/AUTO DIFF WBC KRISTIN SOLOMON MD 01/17/2012 41440 ELEC TROCARDIOGRAM, TRACING KRISTIN SOLOMON MD 01/17/2012 33731 AIRW AY INHALATION TREATMENT KRISTIN SOLOMON MD 01/17/2012 76521 EVAL UATE PT USE OF INHALER KRISTIN SOLOMON MD 01/17/2012 87001 HYDR ATE IV INFUSION, ADD-ON KRISTIN SOLOMON MD 01/17/2012 47080 TX/P RO/DX INJ NEW DRUG MEDICAL CASE MANAGER KRISTIN SOLOMON MD 01/17/2012 A9270 Non- covered item or service KRISTIN SOLOMON MD 01/17/2012 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 KRISTIN SOLOMON MD 01/17/2012 J7611 ALBU TEROL NON-COMP CON TEX SOLOMON MDWALDJudy Turk 01/17/2012 68221 ELEC TROCARDIOGRAM REPORT JOANNA ISIDRO MD 01/17/2012 53885 ROUT INE VENIPUNCTURE KRISTIN SOLOMON MD 01/18/2012 39054 COMP REHEN METABOLIC PANEL KRISTIN SOLOMON MD 01/18/2012 06613 COMP LETE CBC W/AUTO DIFF WBC KRISTIN SOLOMON MD 01/18/2012 40464 EVAL UATE PT USE OF INHALER KRISTIN SOLOMON MD 01/18/2012 A9270 Non- covered item or service TEX SOLOMON MDWALDJudy Turk 01/18/2012 G0008 INFL UENZA VIRUS VACCINE TEX SOLOMON MDWALDJudy Turk 01/18/2012 Q2037 FLUV IRIN VACC, 3 YRS & >, IM KRISTIN SOLOMON MD 01/18/2012 76554 ROUT INE VENIPUNCTURE KRISTIN SOLOMON MD 01/26/2012 53304 INSE RT TEMP BLADDER CATH KRISTIN SOLOMON MD 01/26/2012 95697 COMP REHEN METABOLIC PANEL KRISTIN SOLOMON MD 01/26/2012 17838 URIN ALYSIS, AUTO W/SCOPE KRISTIN SOLOMON MD 01/26/2012 54543 BL S MEAR W/DIFF WBC COUNT KRISTIN SOLOMON MD 01/26/2012 43849 COMP LETE CBC, AUTOMATED KRISTIN SOLOMON MD 01/26/2012 38897 [facility] G[facility] DEPT VISIT KRISTIN SOLOMON MD 01/26/2012 G0431 DRUG SCREEN SINGLE CLASS KRISTIN SOLOMON MD 01/26/2012 A0425 GROU ND KRISTIN POMPA MD 01/26/2012 A0429 BLS EMERGENCY TEX SOLOMON MDWALDJudy Turk 01/26/2012 52594 [facility] G[facility] DEPT VISIT KRISTIN SOLOMON MD 01/26/2012 64468 ELEC TROCARDIOGRAM REPORT JOANNA ISIDRO MD 01/27/[address] H EAD/BRAIN W/O DYE KRISTIN SOLOMON MD 01/27/2012 68325 CHES T X-RAY JUANITO PHELAN, KRISTIN C 01/27/2012 51514 X-RA Y EXAM OF PELVIS JUANITO PHELAN, KRISTIN C 01/27/2012 33221 X-RA Y EXAM OF HIP JUANITO PHELAN, [...] SM INTEST BX Hugo Estes MD 02/12/2012 93963 ROUT INE VENIPUNCTURE JUANITO PHELAN, KRISTIN C 04/07/2012 68611 COMP REHEN METABOLIC PANEL JUANITO PHELAN KRISTIN C 04/07/2012 73273 BL S MEAR W/DIFF WBC COUNT JUANITO PHELAN KRISTIN C 04/07/2012 87679 COMP LETE CBC, AUTOMATED JUANITO PHELAN, KRISTIN C 04/07/2012 49020 [facility] GENCY DEPT VISIT JUANITO PHELAN KRISTIN C 04/07/2012 A0425 GROU ND MILEALIEN SOLOMON MD, KRISTIN C 04/07/2012 A0429 BLS EMERGENCY JUANITO PHELAN, KRISTIN C 04/07/2012 43326 [facility] GENCY DEPT VISIT JUANITO PHELAN KRISTIN C 04/07/2012 27883 COMP REHEN METABOLIC PANEL JUANITO PHELAN, KRISTIN C 04/21/2012 13130 COMP LETE CBC W/AUTO DIFF WBC JUANITO PHELAN, KRISTIN C 04/21/2012 64435 URIN ALYSIS, AUTO W/SCOPE JUANITO PHELAN KRISTIN C 04/25/2012 30673 COMP REHEN METABOLIC PANEL JUANITO PHELAN KRISTIN C 04/28/2012 20383 COMP LETE CBC W/AUTO DIFF WBC JUANITO PHELAN KRISTIN C 04/28/2012 86651 COMP REHEN METABOLIC PANEL JUANITO PHELAN KRISTIN C 05/05/2012 52528 COMP LETE CBC W/AUTO DIFF WBC JUANITO PHELAN KRISTIN C 05/05/2012 66531 EXTR EMITY STUDY JUANITO PHELAN KRISTIN C 05/12/2012 04099 COMP REHEN METABOLIC PANEL JUANITO PHELAN KRISTIN C 05/20/2012 58300 COMP LETE CBC W/AUTO DIFF WBC JUANITO PHELAN KRISTIN C 05/20/2012 73025 PROT HROMBIN TIME JUANITO PHELAN KRISTIN C 05/20/2012 44136 ROUT INE VENIPUNCTURE JUANITO PHELAN KRISTIN C 05/29/2012 78010 COMP REHEN METABOLIC PANEL JUANITO PHELAN KRISTIN C 05/29/2012 22056 COMP LETE CBC W/AUTO DIFF WBC JUANITO PHELAN KRISTIN C 05/29/2012 74673 PROT HROMBIN TIME JUANITO PHELAN KRISTIN C 05/29/2012 11195 PROT HROMBIN TIME JUANITO PHELAN KRISTIN C 06/09/2012 51728 ROUT INE VENIPUNCTURE JUANITO PHELAN KRISTIN C 06/10/2012 28097 META BOLIC PANEL TOTAL CA JUANITO PHELAN KRISTIN C 06/10/2012 19333 ROUT INE VENIPUNCTURE JUANITO PHELAN KRISTIN C 07/15/2012 40781 COMP REHEN METABOLIC PANEL JUANITO PHELAN KRISTIN C 07/15/2012 79056 COMP LETE CBC W/AUTO DIFF WBC JUANITO PHELAN KRISTIN C 07/15/2012 85181 PROT HROMBIN TIME JUANITO PHELAN KRISTIN C 07/15/2012 38321 PROT HROMBIN TIME JUANITO PHELAN KRISTIN C 07/25/2012 59109 ROUT INE VENIPUNCTURE JUANITO PHELAN KRISTIN C 07/29/2012 37207 COMP REHEN METABOLIC PANEL JUANITO PHELAN KRISTIN C 07/29/2012 72476 COMP LETE CBC W/AUTO DIFF WBC JUANITO PHELAN KRISTIN C 07/29/2012 12715 PROT HROMBIN TIME JUANITO PHELAN KRISTIN C 07/29/2012 [id number] GROU ND OLINDA HARRINGTON MD, FREDY Kaufman 07/30/2012 [id number] BLS EMERGENCY FREDY HARRINGTON MD 07/30/2012 [id number] [facility] G[facility] DEPT VISIT FREDY HARRINGTON MD 07/30/2012 [id number] [facility] GENCY DEPT VISIT JUANITO PHELAN KRISTIN C 07/30/2012 43784 PROT HROMBIN TIME JUANITO PHELAN KRISTIN C 08/06/2012 92718 PROT HROMBIN TIME JUANITO PHELAN KRISTIN C 08/26/2012 44286 ROUT INE VENIPUNCTURE JUANITO PHELAN KRISTIN C 09/17/2012 82999 COMP REHEN METABOLIC PANEL JUANITO PHELAN KRISTIN C 09/17/2012 99531 ASSA Y OF MAGNESIUM JUANITO PHELAN KRISTIN C 09/17/2012 78767 COMP LETE CBC W/AUTO DIFF WBC JUANITO PHELAN KRISTIN C 09/17/2012 09100 PROT HROMBIN TIME JUANITO PHELAN KRISTIN C 09/17/2012 47388 ASSA Y OF MAGNESIUM JUANITO PHELAN KRISTIN C 09/24/2012 79706 ROUT INE VENIPUNCTURE JUANITO PHELAN KRISTIN C 10/08/2012 88774 COMP REHEN METABOLIC PANEL JUANITO PHELAN KRISTIN C 10/08/2012 24090 ASSA Y OF MAGNESIUM JUANITO PHELAN KRISTIN C 10/08/2012 80854 COMP LETE CBC W/AUTO DIFF WBC JUANITO PHELAN KRISTIN C 10/08/2012 46075 ROUT INE VENIPUNCTURE JUANITO PHELAN KRISTIN C 10/29/2012 22328 COMP REHEN METABOLIC PANEL JUANITO PHELAN KRISTIN C 10/29/2012 88920 ASSA Y OF MAGNESIUM JUANITO PHELAN KRISTIN C 10/29/2012 68566 ASSA Y THYROID STIM HORMONE JUANITO PHELAN KRISTIN C 10/29/2012 08103 COMP LETE CBC W/AUTO DIFF WBC JUANITO PHELAN KRISTIN C 10/29/2012 99565 PROT HROMBIN TIME JUANITO PHELAN KRISTIN C 10/29/2012 89213 COMP REHEN METABOLIC PANEL JUANITO PHELAN KRISTIN C 11/07/2012 87841 PROT HROMBIN TIME JUANITO PHELAN KRISTIN C 11/07/2012 47012 PROT HROMBIN TIME JUANITO PHELAN KRISTIN C 12/03/2012 57924 PROT HROMBIN TIME JUANITO PHELAN [facility] 12/30/2012 82465 CULT URE, BACTERIA, OTHER JUANITO PHELAN [facility] 01/14/2013 13717 CULT URE AEROBIC IDENTIFY JUANITO PHELAN [facility] 01/14/2013 66081 MICR OBE SUSCEPTIBLE, DAVID SOLOMON MD [facility] 01/14/2013 63066 SMEA R, GRAM STAIN JUANITO PHELAN [facility] 01/14/2013 95103 ASSA Y OF CREATININE JUANITO PHELAN [facility] 01/23/2013 47111 ASSA Y OF UREA NITROGEN JUANITO PHELAN [facility] 01/23/2013 80908 COMP REHEN METABOLIC PANEL JUANITO PHELAN [facility] 01/26/2013 97465 COMP LETE CBC W/AUTO DIFF WBC JUANITO PHELAN [facility] 01/26/2013 90829 PROT HROMBIN TIME JUANITO PHELAN [facility] 01/26/2013 33706 ASSA Y OF CREATININE JUANITO PHELAN [facility] 01/29/2013 94408 ASSA Y OF UREA NITROGEN JUANITO PHELAN [facility] 01/29/2013 17521 ASSA Y OF CREATININE JUAINTO PHELAN [facility] 02/02/2013 42309 ASSA Y OF UREA NITROGEN JUANITO PHELAN [facility] 02/02/2013 99735 ASSA Y OF CREATININE JUANITO PHELAN [facility] 02/06/2013 63614 ASSA Y OF UREA NITROGEN JUANITO PHELAN [facility] 02/06/2013 95356 COMP REHEN METABOLIC PANEL JUANITO PHELAN [facility] 02/10/2013 53629 CULT URE, BACTERIA, OTHER JUANITO PHELAN [facility] 02/11/2013 64198 CULT URE AEROBIC IDENTIFY JUANITO PHELAN [facility] 02/11/2013 98148 MICR OBE SUSCEPTIBLE, DAVID JUANITO PHELAN [facility] 02/11/2013 25100 SMEA R, GRAM STAIN JUANITO PHELAN [facility] 02/11/2013 24306 ASSA Y OF CREATININE JUANITO PHELAN [facility] 02/12/2013 89808 ASSA Y OF UREA NITROGEN JUANITO PHELAN [facility] 02/12/2013 03656 ASSA Y OF CREATININE JUANITO PHELAN [facility] 02/16/2013 30676 ASSA Y OF UREA NITROGEN [facility] 02/16/2013 48855 ASSA Y OF CREATININE JUANITO PHELAN [facility] 02/19/2013 61240 ASSA Y OF UREA NITROGEN JUANITO PHELAN [facility] 02/19/2013 15291 PROT HROMBIN TIME [facility] 02/19/2013 54457 PROT HROMBIN TIME JUANITO PHELAN [facility] 02/20/2013 19247 PROT HROMBIN TIME [facility] 02/21/2013 81016 PROT HROMBIN TIME [facility] 02/22/2013 71168 ASSA Y OF CREATININE [facility]O [facility] 02/23/2013 49595 ASSA Y OF UREA NITROGEN JUANITO PHELAN [facility] 02/23/2013 [id number] PROT HROMBIN TIME [facility] 02/23/2013 [id number] CULT URE, BACTERIA, OTHER [facility]ANITO [facility]HELAN [facility] 02/25/2013 68831 CULT URE AEROBIC IDENTIFY [facility]ITO [facility]HELAN [facility] 02/25/2013 39441 MICR OBE SUSCEPTIBLE, DAVID [facility]ITO PHELAN [facility] 02/25/2013 [id number] SMEA R, GRAM STAIN [facility]ANITO [facility]HELAN [facility] 02/25/2013 56156 PROT HROMBIN TIME [facility]ANITO PHELAN [facility] 02/27/2013 09969 ASSA Y OF CREATININE J[facility]ANITO PHELAN [facility] 03/02/2013 69953 ASSA Y OF UREA NITROGEN J[facility]ANITO PHELAN [facility] 03/02/2013 42690 PROT HROMBIN TIME [facility]ANITO PHELAN [facility] 03/10/2013 53698 PROT HROMBIN TIME [facility]ANITO PHELAN [facility] 03/31/2013 33973 CULT URE, BACTERIA, OTHER J[facility]ANITO PHELAN [facility] 04/27/2013 67886 CULT URE AEROBIC IDENTIFY [facility]ANITO PHELAN [facility] 04/27/2013 46963 MICR OBE SUSCEPTIBLE, DAVID [facility]ITO PHELAN [facility] 04/27/2013 08580 SMEA R, GRAM STAIN [facility]ITO [facility]HELAN [facility] 04/27/2013 27349 ROUT INE VENIPUNCTURE JUANITO PHELAN KRISTIN [facility] 05/05/2013 82914 PROT HROMBIN TIME JUANITO PHELAN [facility] 05/05/2013 37254 ROUT INE VENIPUNCTURE JUANITO PHELAN [facility] 05/25/2013 11927 COMP REHEN METABOLIC PANEL JUANITO PHELAN [facility]IN [facility] 05/25/2013 74578 ASSA Y OF MAGNESIUM JUANITO PHELAN [facility]IN [facility] 05/25/2013 47858 COMP LETE CBC W/AUTO DIFF WBC JUANITO PHELAN KRISTIN C 05/25/2013 44717 PROT HROMBIN TIME JUANITO PHELAN KRISTIN C 05/25/2013 78803 PROT HROMBIN TIME JUANITO PHELAN KRISTIN C 06/02/2013 37012 COMP REHEN METABOLIC PANEL JUANITO PHELAN KRISTIN C 06/09/2013 16709 COMP LETE CBC W/AUTO DIFF WBC JUANITO PHELAN KRISTIN C 06/09/2013 89995 PROT HROMBIN TIME JUANITO PHELAN KRISTIN C 06/09/2013 33190 ROUT INE VENIPUNCTURE JUANITO PHELAN KRISTIN C 07/02/2013 88169 COMP REHEN METABOLIC PANEL JUANITO PHELAN KRISTIN C 07/02/2013 22808 NATR IURETIC PEPTIDE JUANITO PHELAN KRISTIN C 07/02/2013 37160 COMP LETE CBC W/AUTO DIFF WBC JUANITO PHELAN KRISTIN C 07/02/2013 85965 PROT HROMBIN TIME JUANITO PHELAN KRISTIN C 07/02/2013 18445 ROUT INE VENIPUNCTURE JUANITO PHELAN KRISTIN C 07/22/2013 86034 COMP REHEN METABOLIC PANEL JUANITO PHELAN KRISTIN C 07/22/2013 11071 COMP LETE CBC W/AUTO DIFF WBC JUANITO PHELAN KRISTIN C 07/22/2013 44290 PROT HROMBIN TIME JUANITO PHELAN KRISTIN C 07/22/2013 59118 ROUT INE VENIPUNCTURE JUANITO PHELAN KRISTIN C 10/07/2013 61931 COMP REHEN METABOLIC PANEL JUANITO PHELAN KRISTIN C 10/07/2013 89553 COMP LETE CBC W/AUTO DIFF WBC JUANITO PHELAN KRISTIN C 10/07/2013 07800 COMP REHEN METABOLIC PANEL TEX SOLOMON MDWALDO Burke 10/19/2013 02383 URIN ALYSIS, AUTO W/SCOPE TEX SOLOMON MDWALDO C 10/19/2013 22837 ASSA Y OF AMYLASE JUANITO PHELAN KRISTIN C 10/19/2013 03929 ASSA Y OF LIPASE JUANITO PHELAN KRISTIN C 10/19/2013 87599 COMP LETE CBC W/AUTO DIFF WBC TEX SOLOMON MDWALDO C 10/19/2013 19629 SHAWANDA COBACTER PYLORI JUANITO PHELAN KRISTIN C 10/19/2013 73913 CULT URE AEROBIC IDENTIFY JUANITO PHELAN KRISTIN C 10/19/2013 88709 URIN E CULTURE/COLONY COUNT TEX SOLOMON MDWALDO C 10/19/2013 04045 MICR OBE SUSCEPTIBLE, DAVID [facility]ITO PHELAN [facility] 10/19/2013 31263 THER /PROPH/DIAG INJ, IV PUSH [facility] 10/19/2013 25974 TX/P RO/DX INJ NEW DRUG ADDTEX [facility] 10/19/2013 71575 [facility] VISIT TEX SOLOMON MDWALDO [...] A0427 ALS1 EMERGENCY FREDY HARRINGTON MD 10/19/2013 63647 [facility] VISIT FREDY HARRINGTON MD 10/19/2013 36955 X-RA Y EXAM OF FOOT TEX SOLOMON MDWALDO Burke 12/22/2013 65653 ROUT INE VENIPUNCTURE TEX SOLOMON MDWALDO Burke 02/25/2014 54042 COMP REHEN METABOLIC PANEL TEX SOLOMON MDWALDO Burke 02/25/2014 40182 COMP LETE CBC W/AUTO DIFF WBC JUANITO PHELAN KRISTIN C 02/25/2014 57523 CHYL MD PNEUM, DNA, AMP PROBE JUANITO PHELAN, KRISTIN C 02/25/2014 70728 M.PN EUMON, DNA, AMP PROBE JUANITO PHELAN KRISTIN C 02/25/2014 73726 RESP VIRUS 12-25 TARGETS JUANITO PHELAN KRISTIN C 02/25/[address] AGENT NOS, DNA, AMP JUANITO PHELAN KRISTIN C 02/25/2014 21901 ROUT INE VENIPUNCTURE JUANITO PHELAN KRISTIN C 09/09/2014 44254 CHES T X-RAY JUANITO PHELAN KRISTIN C 09/09/2014 85140 COMP REHEN METABOLIC PANEL JUANITO PHELAN KRISTIN C 09/09/2014 89818 COMP LETE CBC W/AUTO DIFF WBC JUANITO PHELAN KRISTIN C 09/09/2014 78974 MYCO PLASMA ANTIBODY JUANITO PHELAN KRISTIN C 09/09/2014 48457 ELEC TROCARDIOGRAM TRACING JUANITO PHELAN KRISTIN C 11/16/2014 13224 X-RA Y EXAM OF ABDOMEN JUANITO PHELAN KRISTIN C 02/11/2015 06845 ELEC TROCARDIOGRAM REPORT DWAINE PHELAN, JOANNA Summers 07/07/2015 92652 ALFREDO L FUNCTION PANEL JUAN MCCABE MD, GRACE Viramontes 02/23/2016 52318 ASSA Y OF FREE THYROXINE GRACE MARTINEZ JR, MD 02/23/2016 G0103 PSA SCREENING JUAN MCCABE MD, GRACE Viramontes 02/23/2016 10898 URIN ALYSIS AUTO W/SCOPE GRACE MARTINEZ JR, MD 02/28/2016 03673 MICR OALBUMIN SEMIQUANT JUAN MCCABE MD, GRACE Viramontes 02/28/2016 81470 ASSA Y OF URINE CREATININE JUAN MCCABE MD, GRACE Viarmontes 02/28/2016 [id number] IN SERTION OF ENDOTRACHEAL AIRWAY INTO TR 09/03/2018 [id number] RE SPIRATORY VENTILATION, 24- 96 CONSECUTI 09/03/2018 Results Test Result Range MRSA Nasal Screen - 04/07/12 17:17 MRSA Nasal Screen SMR Wound Culture - 04/08/12 13:21 Wound Culture SMR Wound Culture - 04/08/12 13:21 Wound Culture SMR COMPLETE BLOOD COUNT - 04/10/12 06:26 Platelet 397 10^3u 142-424 MPV 9.4 FL 9.4-12.4 Bowman # 1.00 10^3u 0.0-1.0 RBC 3.27 10^6u 4.04-6.13 Bowman % 7.4 % 0-12 RDW 15.7 % [...] 353 10^3u 142-424 MPV 9.2 FL 9.4-12.4 Bowman 8.0 RBC 3.18 10^6u 4.04-6.13 RDW 15.8 % 11.6-14.8 Seg 72.0 WBC 12.23 10^3u 4.60-10.20 Bands 3.0 MCV 91.5 FL 80.0-97.0 Eos 5.0 MCHC 30.9 G/DL 31.8-35.4 MCH 28.3 PG 27.0-31.2 Lymph 12.0 HGB 9.0 G/DL 12.2-18.1 HCT 29.1 % 37.7-53.7 COMPLETE BLOOD COUNT - 05/12/12 15:21 Platelet 356 10^3u 142-424 MPV 9.6 FL 9.4-12.4 Bowman # 0.57 10^3u 0.0-1.0 RBC 4.28 10^6u 4.04-6.13 Bowman % 6.1 % 0-12 RDW 16.3 % [...] 526 10^3u 142-424 MPV 10.3 FL 9.4-12.4 Bowman # 0.76 10^3u 0.0-1.0 RBC 4.55 10^6u 4.04-6.13 Bowman % 7.4 % 0-12 RDW 16.7 % [...] 423 10^3u 142-424 MPV 9.6 FL 9.4-12.4 Bowman # 0.80 10^3u 0.0-1.0 RBC 4.04 10^6u 4.04-6.13 Bowman % 7.6 % 0-12 RDW 17.2 % [...] 439 10^3u 142-424 MPV 11.0 FL 9.4-12.4 Bowman # 0.61 10^3u 0.0-1.0 RBC 4.70 10^6u 4.04-6.13 Bowman % 6.5 % 0-12 RDW 15.0 % [...] 399 10^3u 142-424 MPV 10.2 FL 9.4-12.4 Bowman # 0.72 10^3u 0.0-1.0 RBC 4.17 10^6u 4.04-6.13 Bowman % 6.7 % 0-12 RDW 14.9 % [...] 462 10^3u 142-424 MPV 10.2 FL 9.4-12.4 Bowman # 0.77 10^3u 0.0-1.0 Bowman 4.0 RBC 4.69 10^6u 4.04-6.13 Bowman % 4.0 % 0-12 RDW 15.0 % [...] Urobilinogen 0.2 0.2-1.0 Urine RBC N0-2 Specific Wayne 1.015 1.010-1.020 Urine WBC N0-2 Blood Negative Negative Color Yellow Yellow Bilirubin Negative Negative Blood Culture - 07/30/12 22:53 Blood Culture [facility] Blood Culture - 07/30/12 22:59 Blood Culture [facility] MRSA Nasal Screen - 07/31/12 02:04 MRSA Nasal Screen [facility] COMPLETE BLOOD COUNT - 07/31/12 05:50 Platelet 310 10^3u 142-424 MPV 10.1 FL 9.4-12.4 Bowman # 0.83 10^3u 0.0-1.0 RBC 4.07 10^6u 4.04-6.13 Bowman % 4.7 % 0-12 RDW 14.9 % [...] 263 10^3u 142-424 MPV 9.6 FL 9.4-12.4 Bowman # 0.56 10^3u 0.0-1.0 RBC 3.39 10^6u 4.04-6.13 Bowman % 5.3 % 0-12 RDW 15.0 % [...] 309 10^3u 142-424 MPV 10.4 FL 9.4-12.4 Bowman # 0.54 10^3u 0.0-1.0 RBC 4.43 10^6u 4.04-6.13 Bowman % 7.2 % 0-12 RDW 15.0 % [...] 316 10^3u 142-424 MPV 10.0 FL 9.4-12.4 Bowman # 0.66 10^3u 0.0-1.0 RBC 4.41 10^6u 4.04-6.13 Bowman % 6.5 % 0-12 RDW 14.5 % [...] 243 10^3u 142-424 MPV 10.0 FL 9.4-12.4 Bowman # 0.58 10^3u 0.0-1.0 RBC 4.21 10^6u 4.04-6.13 Bowman % 7.3 % 0-12 RDW 15.0 % [...] 245 10^3u 142-424 MPV 10.7 FL 9.4-12.4 Bowman # 0.73 10^3u 0.0-1.0 RBC 4.35 10^6u 4.04-6.13 Bowman % 10.8 % 0-12 RDW 14.1 % [...] 203 10^3u 142-424 MPV 10.2 FL 9.4-12.4 Bowman # 0.43 10^3u 0.0-1.0 RBC 3.98 10^6u 4.04-6.13 Bowman % 7.8 % 0-12 RDW 15.1 % [...] 203 10^3u 142-424 MPV 10.1 FL 9.4-12.4 Bowman # 0.47 10^3u 0.0-1.0 RBC 4.00 10^6u 4.04-6.13 Bowman % 5.6 % 0-12 RDW 14.0 % [...] 212 10^3u 142-424 MPV 10.3 FL 9.4-12.4 Bowman # 0.55 10^3u 0.0-1.0 RBC 3.82 10^6u 4.04-6.13 Bowman % 7.5 % 0-12 RDW 14.0 % [...] 191 10^3u 142-424 MPV 10.3 FL 9.4-12.4 Bowman # 0.52 10^3u 0.0-1.0 RBC 4.86 10^6u 4.04-6.13 Bowman % 5.8 % 0-12 RDW 13.2 % [...] 229 10^3u 142-424 MPV 11.5 FL 9.4-12.4 Bowman # 0.85 10^3u 0.0-1.0 RBC 5.43 10^6u 4.04-6.13 Bowman % 6.2 % 0-12 RDW 13.4 % [...] Urobilinogen 0.2 0.2-1.0 Urine RBC N16-20 Specific Wayne 1.020 1.010-1.020 Urine WBC N3-5 Urine Bacteria 1+ Blood 1+ Negative Color Yellow Yellow Squamous Epithelial Cells 2+ Bilirubin Negative Negative Site UNK COMPLETE BLOOD COUNT - 02/25/14 12:58 Platelet 211 10^3u 142-424 MPV 11.0 FL 9.4-12.4 Bowman # 0.46 10^3u 0.0-1.0 RBC 4.49 10^6u 4.04-6.13 Bowman % 4.9 % 0-12 RDW 13.3 % [...] 2.4-3.5 Creatinine 1.5 MG/DL 0.7-1.5 Respiratory Panel-Bio [facility] - 02/25/14 16 :44 [place] ND Not [...] Human Rhinovirus 4 ND Not Detecte d [id number] ND Not Detected FluA-H1-mccullough ND Not Detected [...] 329 10^3u 142-424 MPV 10.7 FL 9.4-12.4 Bowman # 0.67 10^3u 0.0-1.0 RBC 4.43 10^6u 4.04-6.13 Bowman % 5.8 % 0-12 RDW 13.3 % [...] 216 10^3u 142-424 MPV 11.2 FL 9.4-12.4 Bowman # 0.50 10^3u 0.0-1.0 RBC 4.35 10^6u 4.04-6.13 Bowman % 5.3 % 0-12 RDW 14.1 % [...] Urobilinogen 0.2 0.2-1.0 Urine RBC NONESEEN Specific Wayne 1.010 1.010-1.020 Urine WBC NONESEEN Urine Bacteria Trace Blood Negative Negative Color Yellow Yellow Squamous Epithelial Cells 1+ Bilirubin Negative Negative Site UNK EKG - 07/11/15 03:33 EKG [facility] Urinalysis - 02/28/16 11:23 Glucose Negative Negative Leukocyte Negative Negative Nitrite Negative Negative pH 6.0 5.5-7.5 Urine Appearance Clear Clear Protein Negative Negative Ketones Negative Negative Urobilinogen 0.2 0.2-1.0 Urine RBC NONESEEN Specific Wayne 1.010 1.010-1.020 Urine WBC NONESEEN Blood Negative [...] OF GROWTH Isolated NR Bacterial blood culture [id number] NR FREE TEXT ENTRY 2 TESTING IN PROGRESS N FREE TEXT ENTRY 3 RML REPORTED ID 09/05/18 14:05 NRG Bacterial blood culture - 09/03/18 08:57 FREE TEXT EXTERNAL SUSCEPTIBILITY REPORTED 09-06-18 , 5. NR QUANTITY OF GROWTH Isolated NR Bacterial blood culture [id number] NR FREE TEXT ENTRY 2 RML REPORTED [...] 01:18 Sputum Gram stain Mixed Bacterial Kellen [facility] Bacterial sputum culture - 09/04/18 01:1 8 QUANTITY OF GROWTH Moderate Growth [facility] Bacterial sputum culture [id number] [facility] Dirithromycin susceptibility test by dis k diffusion [...] body temperature 36.8 NRG Radiology Report from [id number] on 012 08:23:00 Final ReportADMITTING DIAGNOSIS: Renal Failure line placementCHEST PORTABLE SINGLE VIEW - 01/28/2012 [facility] RESULT: INDICATION: Evaluation line placement.No prior examinations are available for comparison.FINDINGS: There is a right internal jugular central venouscatheter which has its tip in the superior vena cava. Heart sizeis normal. Lungs are clear. There is no pleural effusion orpneumothorax.IMPRESSION: 1. Stable appearance of the chest.2. Right internal jugular central venous catheter with its tipin the superior vena cava.Dictated on workstation # [id number] BY: DEZ ROGERS II, M.D., RADIOLOGISTELECTRONICALLY SIGNED BY: DEZ ROGERS II, M.D., RADIOLOGISTD Jan 28 2012 6:28AT FRANCOIS: Jan 29 2012 6:32AS Jan 29 2012 6:32A Radiology Report from [id number] on 012 08:23:00 Final ReportADMITTING DIAGNOSIS: Renal Failure CHANGE OF EXAM FOR CORRECT CHARGINGCT CHEST/ABD/PELVIS W/O - 01/28/2012 [facility] RESULT: INDICATION: Sepsis, fall, shortness of breath.TECHNIQUE: [...] about the right hip.Cholelithiasis.Dictated on workstation # [id number] BY: DEZ ROGESR II, M.D., RADIOLOGISTELECTRONICALLY SIGNED BY: DEZ ROGERS II, M.D., RADIOLOGISTD Jan 28 2012 6:05AT JUWAN: Jan 29 2012 6:32AS Jan 29 2012 6:32A Radiology Report from [id number] on 012 08:23:00 Final ReportADMITTING DIAGNOSIS: Renal Failure acute renal failureRENAL SONO BILATERAL - 01/28/2012 [facility] RESULT: INDICATION: Acute renal failure.TECHNIQUE: Multiple real [...] renal cyst.Cholelithiasis and ascites.Dictated on workstation # [id number] RADIOLOGIST: DEZ ROGERS II, M.D., RADIOLOGISTELECTRONICALLY SIGNED BY: DEZ ROGERS II, M.D., RADIOLOGISTD Jan 28 2012 7:08AT SA2: Jan 29 2012 6:32AS Jan 29 2012 6:32A Radiology Report from [id number] on 012 15:40:00 Final ReportADMITTING DIAGNOSIS: Renal Failure ETT placementCHEST PORTABLE SINGLE VIEW - 01/29/2012 [facility] RESULT: INDICATION:Evaluate tube placement.COMPARISON:January 28, 2012.FINDINGS:The heart [...] and right pleural effusion.Dictated on workstation # [id number] BY: DEZ ROGERS II, M.D., RADIOLOGISTELECTRONICALLY SIGNED BY: DEZ ROGERS II, M.D., RADIOLOGISTD Jan 29 2012 1:23PT JM : Jan 29 2012 3:38PS Jan 29 2012 3:38P Radiology Report from [id number] on 012 09:01:00 Final ReportADMITTING DIAGNOSIS: Renal Failure MESENTERIC W/ POSSIBLE THROMBOLYSISMESENTERIC(VISCERAL)ARTERIOGRAM - 01/29/2012 [facility] RESULT: Indication: bowel. Nonpalpable pulse of the superiormesenteric artery intraoperatively. Concern for SMA thrombosis.Comparison: None.Rolling Down Machine Operator: Dr. Musa.Total fluoroscopy time: 19.3 minutes.Total contrast: [...] the procedure on 01/29/2012.Dictated on workstation # [id number] BY: CARLTON MUSA M.D., ELECTRONICALLY SIGNED BY: CARLTON MUSA M.D., D Feb 01 2012 7:49AT KB : Feb 01 2012 8:58AS Feb 01 2012 8:58A Radiology Report from [id number] on 012 08:46:00 Final ReportADMITTING DIAGNOSIS: Renal Failure resp distressCHEST PORTABLE SINGLE VIEW - 01/30/2012 [facility] RESULT: TIME: 4:42 a.m.INDICATION: Respiratory distressUpright portable [...] a telectasis and infiltrate.Dictated on workstation # [id number] BY: JONAH BRUCE M.D., RADIOLOGISTELECTRONICALLY SIGNED BY: JONAH BRUCE M.D., RADIOLOGISTD Jan 30 2012 7:17AT JUWAN: Jan 30 2012 8:44AS Jan 30 2012 8:44A Radiology Report from [id number] on 012 16:54:00 Final ReportADMITTING DIAGNOSIS: Renal Failure OR 25 post-op exp lapABDOMEN(KUB) - 01/30/2012 [facility] RESULT: INDICATION: Rule out postop foreign body.FINDINGS: Skin pedro are seen down the midline of the abdomen.The bowel gas pattern is nonspecific. A nasogastric tube is inplace. There are no unexpected postop foreign bodies.IMPRESSION: No unexpected postop foreign bodies.Dictated on workstation # [id number] BY: DEZ ROGERS II, M.D., RADIOLOGISTELECTRONICALLY SIGNED BY: DEZ ROGERS II, M.D., RADIOLOGISTD Jan 30 2012 3:35PT PH : Jan 30 2012 3:38PS Jan 30 2012 4:51P Radiology Report from [id number] on 012 11:33:00 Final ReportADMITTING DIAGNOSIS: Renal Failure Resp distressCHEST PORTABLE SINGLE VIEW - 01/31/2012 [facility] RESULT: INDICATION: Respiratory failureCOMPARISON: 01/30/2012FINDINGS: Single frontal view of the chest demonstratesunchanged infiltrate, effusion and atelectasis in the right lungbase. Left lung is clear. The heart size is prominent butstable. There is no pneumothorax. Tubes and lines are stable.IMPRESSION: Unchanged aeration of the right lung base.Dictated on workstation # [id number] BY: MARZENA LYLES M.D., RADIOLOGISTELECTRONICALLY SIGNED BY: MARZENA LYLES M.D., RADIOLOGISTD Jan 31 2012 6:57AT JUWAN: Jan 31 2012 11:31AS Jan 31 2012 11:31A Radiology Report from [id number] on 012 08:34:00 Final ReportADMITTING DIAGNOSIS: Renal Failure To assess resp. statusCHEST PORTABLE SINGLE VIEW - 02/01/2012 [facility] RESULT: Indication: Respiratory distress.Comparison: 01/31/2012.Findings: Single frontal view of the chest demonstratesworsening bilateral pulmonary infiltrates and atelectasis. Heartremains enlarged with trace interstitial edema. There is nopneumothorax.IMPRESSION: Worsening infiltrates, atelectasis and interstitialedema.Dictated on workstation # [id number] BY: MARZENA LYLES M.D., RADIOLOGISTELECTRONICALLY SIGNED BY: MARZENA LYLES M.D., RADIOLOGISTD Feb 01 2012 6:31AT KB : Feb 01 2012 8:31AS Feb 01 2012 8:31A Radiology Report from [id number] on 012 12:19:00 Final ReportADMITTING DIAGNOSIS: Renal Failure assess resp statusCHEST PORTABLE SINGLE VIEW - 02/02/2012 [facility] RESULT: INDICATION: Assess respiratory status.EXAMINATION: Frontal chest [...] noted but overall improving.Dictated on workstation # [id number] BY: KEIKO SIMMONS M.D., ELECTRONICALLY SIGNED BY: KEIKO SIMMONS M.D., Lyndsey Feb 02 2012 8:27AT MAX: Feb 02 2012 12:16PS Feb 02 2012 12:16P Radiology Report from [id number] on 012 12:23:00 Final ReportADMITTING DIAGNOSIS: Renal Failure Dobhoff placementKUB (ABDOMEN) - 02/02/2012 [facility] RESULT: INDICATION: Dobbhoff catheter placementEXAMINATION: Abdomen 02/02/2012FINDINGS:Frontal abdomenA Dobbhoff catheter is noted. It is looped in the stomach butthe tip appears to extend into the second portion of theduodenum. The stomach is distended with air. No free air noted.IMPRESSION: 1. Dobbhoff catheter tip likely in the second portion of theduodenum.Dictated on workstation # [id number] BY: KEIKO SIMMONS M.D., ELECTRONICALLY SIGNED BY: KEIKO SIMMONS M.D., Lyndsey Feb 02 2012 11:04AT JUWAN: Feb 02 2012 12:20PS Feb 02 2012 12:20P Radiology Report from [id number] on 012 09:13:00 Final ReportADMITTING DIAGNOSIS: Renal Failure R/O DVTEXT LOWER VENOUS DUPLEX UNI RT - 02/02/2012 [facility] RESULT: INDICATION: Right leg pain and swelling. [...] lower extremity deep venousthrombosis.Dictated on workstation # [id number] RADIOLOGIST: Edwar MELTON M.D., RADIOLOGISTELECTRONICALLY SIGNED BY: Edwar MELTON M.D., RADIOLOGISTD Feb 02 2012 1:17PT MAX: Feb 04 2012 9:11AS Feb 04 2012 9:11A Radiology Report from [id number] on 012 13:32:00 Final ReportADMITTING DIAGNOSIS: Renal Failure dobhoff placementKUB(ABD)TUBE PLCMT POST PYLORIC - 02/03/2012 [facility] RESULT: INDICATION: Dobhoff placement.TIME OF EXAM: 11:42 [...] for malpositioned Dobhoff.Di ctated on workstation # [id number] BY: JOSUE CORDOVA M.D., RADIOLOGISTELECTRONICALLY SIGNED BY: JOSUE CORDOVA M.D., RADIOLOGISTD Feb 04 2012 11:53AT MSK: Feb 05 2012 1:30PS Feb 05 2012 1:30P Radiology Report from [id number] on 012 10:46:00 Final ReportADMITTING DIAGNOSIS: Renal Failure to assess resp. statusCHEST PORTABLE SINGLE VIEW - 02/03/2012 [facility] RESULT: INDICATION: Check respiratory status.EXAMINATION: Frontal chest 02/03/2012.COMPARISON: 02/03/2012 at earlier time.FINDINGS: The heart is stable in appearance. There is pulmonaryvascular congestion. Bibasilar infiltrates and effusions arenoted with pulmonary edema throughout remaining lungs. The chestappears overall stable. Right central line is unchanged with afeeding tube coursing beneath the diaphragm.IMPRESSION: 1. Stable chest.Dictated on wor kstation # [id number] BY: KEIKO SIMMONS M.D., ELECTRONICALLY SIGNED BY: KEIKO SIMMONS M.D., D Feb 03 2012 8:40AT SA2: Feb 03 2012 10:44AS Feb 03 2012 10:44A Radiology Report from [id number] on 09:52:00 Final ReportADMITTING DIAGNOSIS: Renal Failure To assess resp. statusCHEST PORTABLE SINGLE VIEW - 02/04/2012 [facility] RESULT: INDICATION: Pulmonary infiltrates.Time of exam: 4:49 AMComparison is made with prior study from one day earlier.Right-sided central line and Dobbhoff remain in place. Bibasilarinfiltrates and effusions persist. There is some perihilarinfiltrate noted. No pneumothorax is seen.IMPRESSION: No change when compared with exam one day earlier.Dictated on workstation # [id number] BY: JOSUE CORDOVA M.D., RADIOLOGISTELECTRONICALLY SIGNED BY: JOSUE CORDOVA M.D., RADIOLOGISTD Feb 04 2012 7:46AT RF : Feb 04 2012 9:49AS Feb 04 2012 9:49A Radiology Report from [id number] on 09:52:00 Final ReportADMITTING DIAGNOSIS: Renal Failure dh placementKUB(ABD)TUBE PLCMT POST PYLORIC - 02/04/2012 [facility] RESULT: INDICATION: Dobbhoff placement.Time of exam: 4:43 AMPortable supine view of the abdomen was obtained.FINDINGS: Dobbhoff catheter appears to have a tip at thejunction of the second and third portion of the duodenum. Thereis moderate gaseous distention to the stomach noted.IMPRESSION: Dobbhoff catheter has a tip at the junction of thesecond and third portion of the duodenum.Dictated on workstation # [id number] BY: JOSUE CORDOVA M.D., RAD IOLOGISTELECTRONICALLY SIGNED BY: JOSUE CORDOVA M.D., RADIOLOGISTD Feb 04 2012 7:40AT SA2: Feb 04 2012 9:49AS Feb 04 2012 9:49A Radiology Report from [id number] on 13:33:00 Final ReportADMITTING DIAGNOSIS: Renal Failure DHT placementKUB (ABDOMEN) - 02/04/2012 [facility] RESULT: INDICATION: Dobbhoff placement.Time of exam: 10:28 a.m.Portable view of the abdomen was obtained. There is Dobbhoffcatheter which has tip at the junction of the second and thirdportion of the duodenum. There is some linear atelectasis inright base.IMPRESSION: Satisfactory Dobbhoff placement.Dictated on workstation # [id number] BY: JOSUE CORDOVA M.D., RADIOLOGISTELECTRONICALLY SIGNED BY: JOSUE CORDOVA M.D., RADIOLOGISTD Feb 04 2012 11:55AT JUWAN: Feb 05 2012 1:31PS Feb 05 2012 1:31P Radiology Report from [id number] on 012 11:34:00 Final ReportADMITTING DIAGNOSIS: Renal Failure increased o2 requirementsCHEST PORTABLE SINGLE VIEW - 02/05/2012 [facility] RESULT: INDICATION: Hypoxia.COMPARISON: Study compared 02/04/2012.FINDINGS: Findings of pulmonary edema and vascular congestionhave improved from the previous study. There is some discoidright basilar subsegmental atelectasis with no other adversechange.IMPRESSION: Reduction in edema and failure pattern with mildright basilar atelectasis.Dictated on workstation # [id number] BY: DEMETRIUS KUMAR M.D., RADIOLOGISTELECTRONICALLY SIGNED BY: DEMETRIUS KUMAR M.D., RADIOLOGISTD Feb 05 2012 7:19AT AIG: Feb 05 2012 11:31AS Feb 05 2012 11:31A Radiology Report from [id number] on 012 09:28:00 Final ReportADMITTING DIAGNOSIS: Renal Failure SOACHEST PORTABLE SINGLE VIEW - 02/06/2012 [facility] RESULT: TIME: 5:54 a.m.INDICATION: Short of air.FINDINGS: Upright portable chest shows normal heart size andvascularity. There is bibasilar discoid atelectasis. There is noeffusion. PICC line tip is in the SVC. Dobbhoff tube is present.IMPRESSION: Bibasilar atelectasis. The vascularity has decreasedslightly since 02/05/2012.Dictated on workstation # [id number] BY: JONAH BRUCE M.D., RADIOLOGISTELECTRONICALLY SIGNED BY: JONAH BRUCE M.D., RADIOLOGIS TD Feb 06 2012 7:12AT SA2: Feb 06 2012 9:25AS Feb 06 2012 9:25A Radiology Report from [id number] on 012 10:21:00 Final ReportADMITTING DIAGNOSIS: Renal Failure Resp distressCHEST PORTABLE SINGLE VIEW - 02/07/2012 [facility] RESULT: INDICATION: Respiratory distress.Portable chest obtained at 5:24 a.m. and compared to yesterday.FINDINGS: Dobbhoff tube and central venous catheter areunchanged. The heart is normal in size. There is centralvascular congestion with patchy bibasilar infiltrate, rightgreater than left. There is no pneumothorax.IMPRESSION: Unchanged Dobbhoff tube and central venous catheter. Patchybibasilar infiltrates, right greater than left. No newabnormality compared to yesterday.Dictated on workstation # [id number] BY: CYNTHIA FERREIRA M.D., RADIOLOGISTELECTRONICALLY SIGNED BY: CYNTHIA FERREIRA M.D., RADIOLOGISTD Feb 07 2012 7:32AT FRANCOIS: Feb 07 2012 10:19AS Feb 07 2012 10:19A Radiology Report from [id number] on 012 15:10:00 Final ReportADMITTING DIAGNOSIS: Renal Failure tube placementCHEST PORTABLE SINGLE VIEW - 02/07/2012 [facility] RESULT: INDICATION: Endotracheal tube placementRESULT: A portable [...] significant change ofthe lungs.Dictated on workstation # [id number] BY: LUIS A JAMES M.D., ELECTRONICALLY SIGNED BY: LUIS A JAMES M.D., Lyndsey Feb 07 2012 1:14PT MAX: Feb 07 2012 3:07PS Feb 07 2012 3:07P Radiology Report from [id number] on 012 08:36:00 Final ReportADMITTING DIAGNOSIS: Renal Failure R/O anastamosis leakGASTROGRAFIN SMALL BOWEL - 02/07/2012 [facility] RESULT: INDICATION: Suspicion for anastomotic leak.TECHNIQUE: 240 [...] visualize extravasated or extraluminalcontrast.Dictated on workstation # [id number] BY: DEMETRIUS KUMAR M.D., RADIOLOGISTELECTRONICALLY SIGNED BY: DEMETRIUS KUMAR M.D., RADIOLOGISTD Feb 07 2012 4:03PT MICHELLE : Feb 11 2012 8:33AS Feb 11 2012 8:33A Radiology Report from [id number] on 012 15:55:00 Final ReportADMITTING DIAGNOSIS: Renal Failure anastamosis leakCT ABD/PELVIS W - 02/07/2012 [facility] RESULT: EXAMINATION: CT of the abdomen and [...] and right-sided pleural effusion.Dictated on workstation # [id number] BY: PAIGE DYER M.D., RADIOLOGISTELECTRONICALLY SIGNED BY: PAIGE DYER M.D., RADIOLOGISTD Feb 07 2012 2:24PT FRANCOIS: Feb 07 2012 3:53PS Feb 07 2012 3:53P Radiology Report from [id number] on 012 12:07:00 Final ReportADMITTING DIAGNOSIS: Renal Failure fluid volume overloadCHEST PORTABLE SINGLE VIEW - 02/08/2012 [facility] RESULT: INDICATION: Fluid overload. Respiratory distress.Portable film done on : compared to the previous day. Thereis interval increase in the diffuse bilateral edema/infiltratesin the hilar and perihilar areas and in both lung bases. Thepulmonary vessels remain congested. Tip of ET tube is well abovethe katie. Right jugular catheter is unchanged in the SVC.IMPRESSION: Bilateral infiltrates/edema have increased from theprevious day.Dictated on workstation # [id number] BY: IVETT PONCE M.D., RADIOLOGISTELECTRONICALLY SIGNED BY: IVETT PONCE M.D., RADIOLOGISTD Feb 08 2012 8:25AT JUWAN: Feb 08 2012 12:05PS Feb 08 2012 12:05P Radiology Report from [id number] on 11:31:00 Final ReportADMITTING DIAGNOSIS: Renal Failure intraabdominal fluid collectionCT ABDOMEN (WO CONTRAST) - 02/08/2012 [facility] RESULT: INDICATION: Abdominal fluid collection.FINDINGS: Patient presented [...] was therefore not performed.Dictated on workstation # [id number] BY: CYNTHIA FERREIRA M.D., RADIOLOGISTELECTRONICALLY SIGNED BY: CYNTHIA FERREIRA M.D., RADIOLOGISTD Feb 08 2012 10:02AT AIG: Feb 08 2012 11:29AS Feb 08 2012 11:29A Radiology Report from [id number] on 06:10:00 Final ReportADMITTING DIAGNOSIS: Renal Failure to assess resp. statusCHEST PORTABLE SINGLE VIEW - 02/09/2012 [facility] RESULT: INDICATION: Fluid overload.COMPARISON: Comparison made with prior examination of 02/08/2012.FINDINGS: Lines and tubes are in satisfactory position. Theheart size is stable. There is some central pulmonary venouscongestion. There are bibasilar infiltrates. There is no pleuraleffusion or pneumothorax. Mediastinum is unremarkable.IMPRESSION: 1. Interval improvement in the bibasilar pulmonary infiltrates.2. Persistent central pulmonary venous congestion.Dictated on workstation # [id number] BY: DEZ ROGERS II, M.D., RADIOLOGISTELECTRONICALLY SIGNED BY: DEZ ROGERS II, M.D., RADIOLOGISTD Feb 09 2012 8:16AT MK4: Feb 11 2012 6:07AS Feb 11 2012 6:07A Radiology Report from [id number] on 12/01/2 012 16:58:00 Final ReportADMITTING DIAGNOSIS: Renal Failure POST OP JEJUNUMOSTOMY TUBE PLACEMENTABDOMEN(KUB) - 02/09/2012 [facility] RESULT: Single AP view of the abdomen.INDICATION: Jejunostomy tube placement.FINDINGS: Jejunostomy tube is demonstrated. There is no evidenceof unexpected radiopaque foreign body. The bowel gas patternappears nonobstructed.Patient is status post previous bilateral hip arthroplasty.IMPRESSION: Single AP view of the abdomen demonstrates a newlyplaced jejunostomy tube. No supine evidence of free air isdemonstrated. No unexpected radiopaque foreign body is seen.Dictated on workstation # [id number] BY: PAIGE DYER M.D., RADIOLOGISTELECTRONICALLY SIGNED BY: PAIGE DYER M.D., RADIOLOGISTD Feb 09 2012 2:25PT SA2: Feb 09 2012 4:56PS Feb 09 2012 4:56P Radiology Report from [id number] on 012 13:45:00 Final ReportADMITTING DIAGNOSIS: Renal Failure Resp distressCHEST PORTABLE SINGLE VIEW - 02/10/2012 [facility] RESULT: Portable chest, February 10, 2012. Comparison [...] appearance of bibasilar infiltrates.Dictated on workstation # [id number] BY: PAIGE DYER M.D., RADIOLOGISTELECTRONICALLY SIGNED BY: PAIGE DYER M.D., RADIOLOGISTD Feb 10 2012 11:33AT SA2: Feb 10 2012 11:43AS Feb 10 2012 1:43P Radiology Report from [id number] on 012 16:46:00 Final ReportADMITTING DIAGNOSIS: Renal Failure picc placementCHEST PIC LINE PLACEMENT-ONE VIE - 02/10/2012 [facility] RESULT: EXAMINATION: Portable chest.Compared to prior from [...] tube remains appropriately positioned.Dictated on workstation # [id number] BY: PAIGE DYER M.D., RADIOLOGISTELECTRONICALLY SIGNED BY: PAIGE DYER M.D., RADIOLOGISTD Feb 10 2012 4:34PT FRANCOIS: Feb 10 2012 4:38PS Feb 10 2012 4:44P Radiology Report from [id number] on 012 17:08:00 Final ReportADMITTING DIAGNOSIS: Renal Failure Resp distressCHEST PORTABLE SINGLE VIEW - 02/11/2012 [facility] RESULT: INDICATION: Respiratory distressEXAMINATION: Chest AP upright [...] alignment. The chest otherwisenormal.Dictated on workstation # [id number] BY: SANJIV WESTON M.D., RADIOLOGISTELECTRONICALLY SIGNED BY: SANJIV WESTON M.D., RADIOLOGISTD Feb 11 2012 8:31AT MAX: Feb 11 2012 5:05PS Feb 11 2012 5:05P Radiology Report from [id number] on 012 08:56:00 Final ReportADMITTING DIAGNOSIS: Renal Failure Resp distressCHEST PORTABLE SINGLE VIEW - 02/12/2012 [facility] RESULT: INDICATION: Respiratory distressEXAMINATION: Chest AP upright [...] is in good alignment.Dictated on workstation # [id number] BY: SANJIV WESTON M.D., RADIOLOGISTELECTRONICALLY SIGNED BY: SANJIV WESTON M.D., RADIOLOGISTD Feb 12 2012 6:52AT MAX: Feb 12 2012 8:54AS Feb 12 2012 8:54A Radiology Report from [id number] on 13:49:00 Final ReportADMITTING DIAGNOSIS: Renal Failure unidentified bleedMESENTERIC(VISCERAL)ARTERIOGRAM - 02/12/2012 [facility] RESULT: INDICATION: Recurrent GI bleed, most likely [...] femoralartery and arteriotomy was upsized to a 4[place] sheath. Next, a4-[place] Cobra catheter was advanced into the superiormesenteric [...] addressed at this time.Dictated on workstation # [id number] BY: Edwar MELTON M.D., RADIOLOGISTELECTRONICALLY SIGNED BY: Edwar MELTON M.D., RADIOLOGISTD Feb 14 2012 1:28PT FRANCOIS: Feb 15 2012 1:46PS Feb 15 2012 1:46P Radiology Report from [id number] on 012 09:25:00 Final ReportADMITTING DIAGNOSIS: Renal Failure to assess resp. statusCHEST PORTABLE SINGLE VIEW - 02/13/2012 [facility] RESULT: INDICATION: Respiratory distress.2 frontal radiographs of [...] aboutthe areas of infiltrate.Dictated on workstation # [id number] BY: MARITZA MENDOZA D.O., RADIOLOGISTELECTRONICALLY SIGNED BY: MARITZA MENDOZA D.O., RADIOLOGISTD Feb 13 2012 7:45AT MAX: Feb 13 2012 8:02AS Feb 13 2012 9:23A Radiology Report from [id number] on 012 08:34:00 Final ReportADMITTING DIAGNOSIS: Renal Failure Resp distressCHEST PORTABLE SINGLE VIEW - 02/14/[address] [facility] RESULT: INDICATION: Respiratory distress.TIME OF EXAM: [...] from thecomparison study 02/13/2012.Dictated on workstation # [id number] BY: LEW LYONS M.D., RADIOLOGISTELECTRONICALLY SIGNED BY: LEW LYONS M.D., RADIOLOGISTD Feb 14 2012 7:54AT AIG: Feb 14 2012 8:32AS Feb 14 2012 8:32A Radiology Report from [id number] on 09:17:00 Final ReportADMITTING DIAGNOSIS: Renal Failure to assess resp. statusCHEST PORTABLE SINGLE VIEW - 02/15/2012 [facility] RESULT: INDICATION: Respiratory distressCOMPARISON: 02/14/2012FINDINGS:Again seen is patchy infiltrate in the bases bilaterally, leftgreater than right. The heart remains stable. There is nopulmonary edema, pneumothorax or pleural effusion. Tubes andlines are stable.IMPRESSION: Unchanged basilar infiltrates.Dictated on workstation # [id number] BY: MARZENA LYLES M.D., RADIOLOGISTELECTRONICALLY SIGNED BY: MARZENA LYLES M.D., RADIOLOGISTD Feb 15 2012 6:30AT RF : Feb 15 2012 9:14AS Feb 15 2012 9:14A Radiology Report from [id number] on 11:06:00 Final ReportADMITTING DIAGNOSIS: Renal Failure Resp. assessmentCHEST PORTABLE SINGLE VIEW - 02/16/2012 [facility] RESULT: INDICATION: Shortness of breath.Comparison made with prior examination from February 15, 2012FINDINGS: The heart size is normal. There is some venouscongestion. There are bibasilar infiltrates. There is no pleuraleffusion or pneumothorax. The mediastinum is unremarkable.IMPRESSION: Bibasilar pulmonary infiltrates.Mild central pulmonary venous congestion.Dictated on workstation # [id number] BY: DEZ ROGERS II, M.D., RADIOLOGISTELECTRONICALLY SIGNED BY: DEZ ROGERS II, M.D., RADIOLOGISTD Feb 16 2012 7:50AT JUWAN: Feb 16 2012 11:03AS Feb 16 2012 11:03A Radiology Report from [id number] on 08:56:00 Final ReportADMITTING DIAGNOSIS: Renal Failure to assess resp. statusCHEST PORTABLE SINGLE VIEW - 02/17/2012 [facility] RESULT: INDICATION: Respiratory distress.EXAMINATION: Portable chest at 6:04 a.m.FINDINGS: The right upper extremity PICC line tip projects overthe SVC. The heart size and pulmonary vascularity are normal.There has been some interval improvement of bibasilarinterstitial infiltrates compared to the previous day.IMPRESSION: Improving basilar pulmonary infiltrates.Dictated on workstation # [id number] BY: HARRY NARAYAN M.D., RADIOLOGISTELECTRONICALLY SIGNED BY: HARRY NARAYAN M.D., RADIOLOGISTD Feb 17 2012 8:37AT IMS: Feb 17 2012 8:54AS Feb 17 2012 8:54A Radiology Report from [id number] on 08:13:00 Final ReportADMITTING DIAGNOSIS: Renal Failure to assess resp. statusCHEST PORTABLE SINGLE VIEW - 02/18/2012 [facility] RESULT: INDICATION: Pulmonary infiltrates.Time of exam: 5:33 a.m.Correlation is made with prior study one day earlier. Rightupper extremity line has tip overlying the SVC. Heart size isstable. Basilar infiltrates appear to be slightly worse ontoday''s study. Minimal infiltrate right midlung is also noted.There is no effusion or pneumothorax.IMPRESSION: Slight increase in basilar infiltrates when comparedto exam one day earlier.Dictated on workstation # [id number] BY: JOSUE CORDOVA M.D., RADIOLOGISTELECTRONICALLY SIGNED BY: JOSUE CORDOVA M.D., RADIOLOGISTD Feb 18 2012 6:25AT JUWAN: Feb 18 2012 8:11AS Feb 18 2012 8:11A Radiology Report from [id number] on 012 08:16:00 Final ReportADMITTING DIAGNOSIS: Renal Failure today- swallow failedMODIFIED BARIUM SWALLOW - 02/18/2012 [facility] RESULT: INDICATION: Dysphagia.EXAMINATION: Video fluoroscopy was performed in the routinefashion, with speech pathology, in the upright and lateralposition.Patient was given thin barium, nectar material, as well aspudding material and then barium-coated cookie. There is weakand discoordinated swallowing with evidence of silent aspirationwith all materials. There is no residual in the pharyngealrecesses.IMPRESSION: Evidence of aspiration, as above.Dictated on workstation # [id number] BY: CYNTHIA FERREIRA M.D., RADIOLOGISTELECTRONICALLY SIGNED BY: CYNTHIA FERREIRA M.D., RADIOLOGISTD Feb 18 2012 4:27PT AS6: Feb 19 2012 8:14AS Feb 19 2012 8:14A Radiology Report from [id number] on 012 08:21:00 Final ReportADMITTING DIAGNOSIS: Renal Failure change in mental status - CT of head without contrastCT HEAD (W/O CONTRAST ) - 02/21/2012 [facility] RESULT: INDICATION: Change in mental status.COMPARISON: I [...] No hemorrhage oracute-appearing abnormality.Dictated on workstation # [id number] BY: DEMETRIUS KUMAR M.D., RADIOLOGISTELECTRONICALLY SIGNED BY: DEMETRIUS KUMAR M.D., RADIOLOGISTD Feb 21 2012 4:14PT AS6: Feb 22 2012 8:19AS Feb 22 2012 8:19A Encounters ACCT No. Visit Date/Time Discharge Status Pt. Type Provider Facility Loc./Unit Complaint [id number] 02/28/2016 10:00:00 02/28/2016 10:00 :00 DIS Outpatient JUAN MCCABE MD, [facility] OTHER [id number] 02/23/2016 10:18:00 02/23/2016 10:18 :00 DIS Outpatient JUAN MCCABE MD, [facility] OTHER [id number] 07/07/2015 18:20:00 07/19/2015 13:25 :00 DIS Inpatient MARQUITA PHELAN, [facility] [id number] 07/07/2015 18:20:00 07/07/2015 18:20 :00 DIS Outpatient DWAINE PHELAN, [facility] OTHER [id number] 02/11/2015 10:20:00 02/11/2015 10:20 :00 DIS Outpatient JUANITO PHELAN, [facility] OTHER [id number] 11/16/2014 10:59:00 11/16/2014 10:59 :00 DIS Outpatient JUANITO PHELAN, [facility] OTHER [id number] 09/09/2014 14:58:00 09/09/2014 23:59 :59 CLS Outpatient JUANITO PHELAN, [facility] OTHER [id number] 02/25/2014 12:39:00 02/25/2014 12:39 :00 DIS Outpatient JUANITO PHELAN, [facility] OTHER [id number] 12/22/2013 11:36:00 12/22/2013 11:36 :00 DIS Outpatient JUANITO PHELAN, [facility] OTHER [id number] 10/19/2013 05:30:00 10/19/2013 05:30 :00 DIS Outpatient LEN PHELAN, [facility] OTHER [id number] 10/19/2013 04:03:00 10/19/2013 05:30 :00 DIS Emergency JUANITO PHELAN, [facility] ER [id number] 10/19/2013 03:32:00 10/19/2013 03:32 :00 DIS Outpatient LEN PHELAN, [facility] OTHER [id number] 10/07/2013 12:46:00 10/07/2013 12:46 :00 DIS Outpatient JUANITO PHELAN, [facility] OTHER [id number] 07/22/2013 10:23:00 07/22/2013 10:23 :00 DIS Outpatient JUANITO PHELAN, [facility] OTHER [id number] 07/02/2013 16:02:00 07/02/2013 16:02 :00 DIS Outpatient JUANITO PHELAN, [facility] OTHER [id number] 06/09/2013 06:29:00 06/09/2013 06:29 :00 DIS Outpatient JUANITO PHELAN, [facility] GLC [id number] 06/02/2013 09:51:00 06/02/2013 09:51 :00 DIS Outpatient JUANITO PHELAN, [facility] OTHER [id number] 05/25/2013 11:01:00 05/25/2013 11:01 :00 DIS Outpatient JUANITO PHELAN, [facility] GLC [id number] 05/05/2013 10:00:00 05/05/2013 10:00 :00 DIS Outpatient JUANITO PHELAN, [facility] GLC [id number] 04/27/2013 14:14:00 04/27/2013 14:14 :00 DIS Outpatient JUANITO PHELAN, [facility] GLC [id number] 03/31/2013 09:41:00 03/31/2013 09:41 :00 DIS Outpatient JUANITO PHELAN, [facility] GLC [id number] 03/10/2013 08:20:00 03/10/2013 08:20 :00 DIS Outpatient JUANITO PHELAN, [facility] GLC [id number] 03/02/2013 15:42:00 03/02/2013 15:42 :00 DIS Outpatient JUANITO PHELAN, [facility] [id number] 02/27/2013 08:22:00 02/27/2013 08:22 :00 DIS Outpatient JUAINTO PHELAN, [facility] GLC [id number] 02/25/2013 07:01:00 02/25/2013 07:01 :00 DIS Outpatient JUANITO PHELAN, [facility] [id number] 02/23/2013 08:17:00 02/23/2013 08:17 :00 DIS Outpatient JUANITO PHELAN, [facility] [id number] 02/22/2013 06:31:00 02/22/2013 06:31 :00 DIS Outpatient JUANITO PHELAN, [facility] [id number] 02/21/2013 09:14:00 02/21/2013 09:14 :00 DIS Outpatient JUANITO PHELAN, [facility] [id number] 02/20/2013 08:29:00 02/20/2013 08:29 :00 DIS Outpatient JUANITO PHELAN, [facility] GLC [id number] 02/19/2013 08:19:00 02/19/2013 08:19 :00 DIS Outpatient JUANITO PHELAN, [facility] GLC [id number] 02/16/2013 09:47:00 02/16/2013 09:47 :00 DIS Outpatient JUANITO PHELAN, [facility] GLC [id number] 02/12/2013 06:11:00 02/12/2013 06:11 :00 DIS Outpatient JUANITO PHELAN, [facility] GLC [id number] 02/11/2013 06:42:00 02/11/2013 06:42 :00 DIS Outpatient JUANITO PHELAN, [facility] GLC [id number] 02/10/2013 06:27:00 02/10/2013 06:27 :00 DIS Outpatient JUANITO PHELAN, [facility] GLC [id number] 02/06/2013 09:27:00 02/06/2013 09:27 :00 DIS Outpatient JUANITO PHELAN, [facility] GLC [id number] 02/02/2013 06:12:00 02/02/2013 06:12 :00 DIS Outpatient JUANITO PHELAN, [facility] [id number] 01/29/2013 06:30:00 01/29/2013 06:30 :00 DIS Outpatient JUANITO PHELAN, [facility] GLC [id number] 01/26/2013 06:37:00 01/26/2013 06:37 :00 DIS Outpatient JUANITO PEHLAN, [facility] GLC [id number] 01/23/2013 06:48:00 01/23/2013 06:48 :00 DIS Outpatient JUANITO PHELAN, [facility] [id number] 01/14/2013 09:13:00 01/14/2013 09:13 :00 DIS Outpatient JUANITO PHELAN, [facility] OTHER [id number] 12/30/2012 12:59:00 12/30/2012 12:59 :00 DIS Outpatient JUANITO PHELAN, [facility] GLC [id number] 12/03/2012 06:49:00 12/03/2012 06:49 :00 DIS Outpatient JUANITO PHELAN, [facility] [id number] 11/07/2012 06:29:00 11/07/2012 06:29 :00 DIS Outpatient JUANITO PHELAN, [facility] GLC [id number] 10/29/2012 12:05:00 10/29/2012 12:05 :00 DIS Outpatient JUANITO PHELAN, [facility] OTHER [id number] 10/08/2012 11:32:00 10/08/2012 11:32 :00 DIS Outpatient JUANITO PHELAN, [facility] OTHER [id number] 09/24/2012 08:23:00 09/24/2012 08:23 :00 DIS Outpatient JUANITO PHELAN, [facility] GLC [id number] 09/17/2012 12:27:00 09/17/2012 12:27 :00 DIS Outpatient JUANITO PHELAN, [facility] OTHER [id number] 08/26/2012 09:54:00 08/26/2012 09:54 :00 DIS Outpatient JUANITO PHELAN, [facility] GLC [id number] 08/06/2012 09:51:00 08/06/2012 09:51 :00 DIS Outpatient JUANITO PHELAN, [facility] OTHER [id number] 07/30/2012 23:15:00 08/03/2012 15:30 :00 DIS Inpatient LEN PHELAN, [facility] NS1 [id number] 07/30/2012 21:30:00 07/30/2012 23:15 :00 DIS Emergency JUANITO PHELAN, [facility] OTHER [id number] 07/30/2012 22:20:00 07/30/2012 22:20 :00 DIS Outpatient LEN PHELAN, [facility] OTHER [id number] 07/30/2012 21:14:00 07/30/2012 21:14 :00 DIS Outpatient LEN PHELAN, [facility] OTHER [id number] 07/29/2012 06:12:00 07/29/2012 06:12 :00 DIS Outpatient JUANITO PHELAN, [facility] GLC [id number] 07/25/2012 11:22:00 07/25/2012 11:22 :00 DIS Outpatient JUANITO PHELAN, [facility] GLC [id number] 07/15/2012 16:26:00 07/15/2012 16:26 :00 DIS Outpatient JUANITO PHELAN, [facility] GLC [id number] 06/10/2012 12:26:00 06/10/2012 12:26 :00 DIS Outpatient JUANITO PHELAN, [facility] GLC [id number] 06/09/2012 06:36:00 06/09/2012 06:36 :00 DIS Outpatient JUANITO PHELAN, [facility] GLC [id number] 05/29/2012 11:46:00 05/29/2012 11:46 :00 DIS Outpatient JUANITO PHELAN, [facility] GLC [id number] 05/20/2012 07:51:00 05/20/2012 07:51 :00 DIS Outpatient JUANITO PHELAN, [facility] GLC [id number] 05/12/2012 15:10:00 05/14/2012 17:30 :00 DIS Inpatient JUANITO PHELAN, [facility] NS1 [id number] 05/12/2012 13:09:00 05/12/2012 13:09 :00 DIS Outpatient JUANITO PHELAN, [facility] OTHER [id number] 05/05/2012 08:05:00 05/05/2012 08:05 :00 DIS Outpatient JUANITO PHELAN, [facility] [id number] 04/28/2012 07:41:00 04/28/2012 07:41 :00 DIS Outpatient JUANITO PHELAN, [facility] [id number] 04/25/2012 09:03:00 04/25/2012 09:03 :00 DIS Outpatient JUANITO PHELAN, [facility] [id number] 04/21/2012 06:34:00 04/21/2012 06:34 :00 DIS Outpatient JUANITO PHELAN, [facility] [id number] 04/07/2012 14:25:00 04/14/2012 17:00 :00 DIS Inpatient JUANITO PHELAN, [facility] NS1 [id number] 04/10/2012 10:19:00 04/10/2012 23:59 :59 CLS Emergency KRISTIN SOLOMON MD [id number] 04/10/2012 10:19:00 04/10/2012 23:59 :59 CLS Emergency RAMIRO SOLOMON MDO [place] [id number] 04/10/2012 10:19:00 04/10/2012 23:59 :59 CLS Outpatient KRISTIN SOLOMON MD [id number] 04/10/2012 10:19:00 04/10/2012 23:59 :59 CLS Outpatient JUANITO PHELAN, [facility] OTHER [id number] 04/10/2012 10:19:00 04/10/2012 23:59 :59 CLS Emergency FREDY HARRINGTON MD [id number] 04/10/2012 10:19:00 04/10/2012 23:59 :59 CLS Outpatient KRISTIN SOLOMON MD [id number] 04/07/2012 12:40:00 04/07/2012 14:25 :00 DIS Emergency BACANI MD, [facility] ER [id number] 04/07/2012 13:00:00 04/07/2012 13:00 :00 DIS Outpatient JUANITO PHELAN, [facility] OTHER [id number] 04/07/2012 12:28:00 04/07/2012 12:28 :00 DIS Emergency JUANITO PHELAN, [facility] ER [id number] 01/27/2012 11:25:00 01/27/2012 23:59 :59 CLS Outpatient KRISTIN SOLOMON MD [id number] 01/26/2012 23:45:00 01/26/2012 23:59 :59 CLS Outpatient KRISTIN SOLOMON MD [id number] 01/26/2012 23:00:00 01/26/2012 23:59 :59 CLS Emergency KRISTIN SOLOMON MD [id number] 01/26/2012 22:26:00 01/26/2012 23:59 :59 CLS Outpatient KRISTIN SOLOMON MD [id number] 01/16/2012 15:55:00 01/16/2012 23:59 :59 CLS Outpatient KRISTIN SOLOMON MD [id number] 01/16/2012 14:50:00 01/16/2012 23:59 :59 CLS Outpatient FREDY HARRINGTON MD [id number] 01/16/2012 14:21:00 01/16/2012 23:59 :59 CLS Outpatient FREDY HARRINGTON MD [id number] 01/16/2012 13:57:00 01/16/2012 23:59 :59 CLS Outpatient FREDY HARRINGTON MD [id number] 01/01/2012 15:52:00 01/01/2012 23:59 :59 CLS Outpatient KRISTIN SOLOMON MD [id number] 12/14/2011 08:03:00 12/14/2011 23:59 :59 CLS Outpatient KRISTIN SOLOMON MD [id number] 12/14/2011 08:03:00 12/14/2011 23:59 :59 CLS Outpatient KRISTIN SOLOMON MD [id number] 12/07/2011 12:06:00 12/07/2011 23:59 :59 CLS Outpatient KRISTIN SOLOMON MD [id number] 12/03/2011 11:06:00 12/03/2011 23:59 :59 CLS Outpatient KRISTIN SOLOMON MD [id number] 11/27/2011 12:00:00 11/27/2011 23:59 :59 CLS Outpatient JERONIMO PHELAN JAELYNANTONIA [place] [id number] 11/26/2011 18:16:00 11/26/2011 23:59 :59 CLS Outpatient KRISTIN SOLOMON MD [id number] 11/22/2011 09:45:00 11/22/2011 23:59 :59 CLS Outpatient KRISTIN SOLOMON MD [id number] 11/22/2011 09:45:00 11/22/2011 23:59 :59 CLS Outpatient KRISTIN SOLOMON MD [id number] 11/08/2011 16:25:00 11/08/2011 23:59 :59 CLS Outpatient KRISTIN SOLOMON MD [id number] 11/08/2011 15:05:00 11/08/2011 23:59 :59 CLS Emergency KRISTIN SOLOMON MD [id number] 11/08/2011 14:40:00 11/08/2011 23:59 :59 CLS Outpatient KRISTIN SOLOMON MD [id number] 11/08/2011 14:22:00 11/08/2011 23:59 :59 CLS Outpatient JOANNA ISIDRO MD [id number] 10/13/2011 23:00:00 10/13/2011 23:59 :59 CLS Outpatient KRISTIN SOLOMON MD [id number] 10/13/2011 22:15:00 10/13/2011 23:59 :59 CLS Emergency KRISTIN SOLOMON MD [id number] 10/10/2011 14:53:00 10/10/2011 23:59 :59 CLS Outpatient KRISTIN SOLOMON MD [id number] 09/30/2011 10:35:00 09/30/2011 23:59 :59 CLS Emergency KRISTIN SOLOMON MD [id number] 09/30/2011 10:35:00 09/30/2011 23:59 :59 CLS Outpatient KEIKO SEVERINO [id number] 09/04/2011 08:54:00 09/04/2011 23:59 :59 CLS Outpatient KRISTIN SOLOMON MD [id number] 09/03/2011 09:00:00 09/03/2011 23:59 :59 CLS Outpatient KRISTIN SOLOMON MD [id number] 09/02/2011 08:52:00 09/02/2011 23:59 :59 CLS Outpatient KRISTIN SOLOMON MD [id number] 09/01/2011 08:28:00 09/01/2011 23:59 :59 CLS Outpatient FREDY HARRINGTON MD [id number] 08/31/2011 09:03:00 08/31/2011 23:59 :59 CLS Outpatient KRISTIN SOLOMON MD [id number] 08/30/2011 08:55:00 08/30/2011 23:59 :59 CLS Outpatient KRISTIN SOLOMON MD [id number] 08/29/2011 08:51:00 08/29/2011 23:59 :59 CLS Outpatient KRISTIN SOLOMON MD [id number] 08/28/2011 14:42:00 08/28/2011 23:59 :59 CLS Outpatient KRISTIN SOLOMON MD [id number] 08/20/2011 15:06:00 08/20/2011 23:59 :59 CLS Outpatient KRISTIN SOLOMON MD [id number] 07/26/2011 11:30:00 07/26/2011 23:59 :59 CLS Outpatient KRISTIN SOLOMON MD [id number] 07/26/2011 11:30:00 07/26/2011 23:59 :59 CLS Outpatient KRISTIN SOLOMON MD [id number] 07/12/2011 10:00:00 07/12/2011 23:59 :59 CLS Outpatient KRISTIN SOLOMON MD [id number] 07/12/2011 10:00:00 07/12/2011 23:59 :59 CLS Outpatient KRISTIN SOLOMON MD [id number] 07/03/2011 15:00:00 07/03/2011 23:59 :59 CLS Outpatient KRISTIN SOLOMON MD [id number] 06/28/2011 12:15:00 06/28/2011 23:59 :59 CLS Outpatient KRISTIN SOLOMON MD [id number] 06/28/2011 12:15:00 06/28/2011 23:59 :59 CLS Outpatient KRISTIN SOLOMON MD [id number] 05/31/2011 08:19:00 05/31/2011 23:59 :59 CLS Outpatient KRISTIN SOLOMON MD [id number] 05/29/2011 16:02:00 05/29/2011 23:59 :59 CLS Outpatient KRISTIN SOLOMON MD [id number] 05/21/2011 23:20:00 05/21/2011 23:59 :59 CLS Outpatient KRISTIN SOLOMON MD [id number] 05/20/2011 23:20:00 05/20/2011 23:59 :59 CLS Emergency KRISTIN SOLOMON MD [id number] 05/20/2011 23:20:00 05/20/2011 23:59 :59 CLS Outpatient ESTEFANIA CUETO DO [id number] 05/20/2011 22:53:00 05/20/2011 23:59 :59 CLS Outpatient ESTEFANIA CUETO DO [id number] 05/07/2011 08:10:00 05/07/2011 23:59 :59 CLS Emergency KRISTIN SOLOMON MD [id number] 05/07/2011 07:40:00 05/07/2011 23:59 :59 CLS Outpatient KRISTIN SOLOMON MD [id number] 05/06/2011 15:45:00 05/06/2011 23:59 :59 CLS Emergency KRISTIN SOLOMON MD [id number] 05/06/2011 15:45:00 05/06/2011 23:59 :59 CLS Outpatient FREDY HARRINGTON MD [id number] 05/06/2011 15:23:00 05/06/2011 23:59 :59 CLS Outpatient FREDY HARRINGTON MD [id number] 05/01/2011 09:30:00 05/01/2011 23:59 :59 CLS Outpatient ANDRES DECKER MD [id number] 03/21/2011 16:40:00 03/21/2011 23:59 :59 CLS Outpatient KRISTIN SOLOMON MD [id number] 03/21/2011 15:10:00 03/21/2011 23:59 :59 CLS Outpatient KRISTIN SOLOMON MD [id number] 02/05/2011 18:00:00 02/05/2011 23:59 :59 CLS Outpatient KRISTIN SOLOMON MD [id number] 01/26/2011 14:10:00 01/26/2011 23:59 :59 CLS Outpatient KRISTIN SOLOMON MD [id number] 12/28/2010 16:13:00 12/28/2010 23:59 :59 CLS Outpatient KRISTIN SOLOMON MD [id number] 12/06/2010 15:15:00 12/06/2010 23:59 :59 CLS Outpatient KRISTIN SOLOMON MD [id number] 11/29/2010 13:25:00 11/29/2010 23:59 :59 CLS Outpatient KRISTIN SOLOMON MD [id number] 11/23/2010 15:10:00 11/23/2010 23:59 :59 CLS Outpatient KRISTIN SOLOMON MD [id number] 11/13/2010 13:27:00 11/13/2010 23:59 :59 CLS Outpatient JOANNA ISIDRO MD [id number] 11/13/2010 12:00:00 11/13/2010 23:59 :59 CLS Emergency KRISTIN SOLOMON MD [id number] 10/24/2010 10:30:00 10/24/2010 23:59 :59 CLS Outpatient ANDRES DECKER MD [id number] 09/25/2010 11:07:00 09/25/2010 23:59 :59 CLS Outpatient KRISTIN SOLOMON MD [id number] 09/25/2010 11:05:00 09/25/2010 23:59 :59 CLS Emergency KRISTIN SOLOMON MD [id number] 09/25/2010 10:42:00 09/25/2010 23:59 :59 CLS Outpatient KRISTIN SOLOMON MD [id number] 09/12/2010 09:30:00 09/12/2010 23:59 :59 CLS Outpatient DARA AGUSTIN MD [id number] 2010 08:40:00 2010 23:59 :59 CLS Outpatient DARA AGUSTIN MD [id number] 07/12/2010 09:32:00 07/12/2010 23:59 :59 CLS Outpatient KRISTIN SOLOMON MD [id number] 07/11/2010 10:50:00 07/11/2010 23:59 :59 CLS Outpatient DARA AGUSTIN MD [id number] 06/07/2010 13:45:00 06/07/2010 23:59 :59 CLS Emergency KRISTIN SOLOMON MD [id number] 06/07/2010 13:20:00 06/07/2010 23:59 :59 CLS Outpatient KRISTIN SOLOMON MD [id number] 06/01/2010 15:58:00 06/01/2010 23:59 :59 CLS Outpatient KRISTIN SOLOMON MD [id number] 04/05/2010 15:07:00 04/05/2010 23:59 :59 CLS Outpatient KRISTIN SOLOMON MD [id number] 02/24/2010 12:57:00 02/24/2010 23:59 :59 CLS Outpatient KRISTIN SOLOMON MD [id number] 01/27/2012 01:25:00 Inpatient KRISTIN SOLOMON MD [id number] 11/08/2011 16:50:00 Inpatient KRISTIN SOLOMON MD [id number] 05/21/2011 01:00:00 Inpatient KRISTIN SOLOMON MD [id number] 03/23/2011 09:30:00 Inpatient KRISTIN SOLOMON MD [id number] 11/13/2010 13:45:00 Inpatient KRISTIN SOLOMON MD [id number] 05/10/2010 15:50:00 Inpatient MARQUITA PHELAN, EBEN Kaufman [id number] 05/03/2010 17:10:00 Inpatient NIKOLE PHELAN, DARA R [id number] 01/27/2012 22:27:00 02/22/20 12 15:54:00 DIS Inpatient Nash PHELAN, Curtis Hortonma [facility] on [address] [id number] 05/19/2015 10:50:13 05/19/2015 23:59: 59 CLS Outpatient Adriano, V S [id number] 01/18/2015 13:57:00 23:59:00 DIS Outpatient Vinnie Monterroso Via [facility] ENT PO 1 WK L TYMPANO MASTOIDECT JESSICA [id number] 01/10/2015 06:12:00 15:22:00 DIS Outpatient Vinnie Monterroso Via [facility] Surgery SURGERY [id number] 12/27/2014 13:35:00 23:59:00 DIS Outpatient Vinnie Monterroso [facility] ENT RCK 1 MO SINUS [id number] 12/01/2014 15:42:00 23:59:00 DIS Outpatient RegehVinnie mills [facility] ENT po ess [id number] 11/26/2014 07:46:00 11:39:00 DIS Outpatient RegehVinnie mills [facility] Surgery SURGERY [id number] 10/27/2014 14:29:00 23:59:00 DIS Outpatient Michelle Duque V ia [facility] Audio Michelle - Medicare - Regehr [id number] 10/27/2014 12:42:00 23:59:00 DIS Outpatient RegehVinnie mills [facility] ENT CHECK EARS AND SINUS [id number] 12/04/2018 15:34:00 23:59:59 CLS Outpatient FIORELLA ROQUE MD [facility] ER FS SOB [id number] 09/03/2018 10:56:00 12:55:00 DIS Inpatient ROZ WILKINS MD [facility] 4TH SEPTIC SHOCK [id number] 07/11/2018 10:27:00 12:30:00 DIS Emergency SOMMER STEFF CLARK [facility] ER FS SOB [id number] 05/27/2018 19:36:00 13:35:00 DIS Inpatient FIORELLA ROQUE MD [facility] 4TH RIGHT MIDDLE LOBE PNEUM ONIA; COPD W/ EXACERBATION [id number] 05/20/2018 10:40:00 23:59:59 CLS Outpatient BELLA KARIMI APRN [facility] WOUNDCARE [id number] 05/16/2018 10:38:00 23:59:59 CLS Outpatient BELLA KARIMI APRN [facility] RAD FS [id number] 05/06/2018 11:03:00 23:59:59 CLS Outpatient BELLA KARIMI APRN [facility] WOUNDCARE [id number] 04/29/2018 12:29:00 23:59:59 CLS Outpatient BELLA KARIMI APRN [facility] RAD PRESSURE [place] OF [place] [id number] 04/29/2018 10:44:00 23:59:59 CLS Outpatient BELLA KARIMI APRN [facility] WOUNDCARE [id number] 04/01/2018 08:09:00 23:59:59 CLS Outpatient BELLA KARIMI APRN [facility] WOUNDCARE [id number] 05/24/2019 03:11:00 Document Registration
[2019-05-25 00:16] VITALS: BP 140/82
[2019-05-25] MEDS ORDERED: ACETAMINOPHEN 500 MG TAB (TYLENOL) PO PRN (00:45)
[2019-05-25] MEDS ORDERED: ACETAMINOPHEN 500 MG TAB (TYLENOL) ONE (01:00)
[2019-05-25] MEDS: RT-ALBUTEROL/IPRATROPIUM 3 ML (DUONEB) VIAL INH SCH (02:47)
[2019-05-25] MEDS: NS IV 1000 ML 1,000 ML IV SCH (03:41)
[2019-05-25 04:00] VITALS: BP 131/70
[2019-05-25 05:17] LABS: BASOPHILS % (AUTO) 0 % (0-10); EOSINOPHILS % (AUTO) 0 % (0-10); HEMATOCRIT 41 % (40-54); HEMOGLOBIN 12.7 G/DL (13.3-17.7); LYMPHOCYTES # (AUTO) 0.3 X 10^3 (1.0-4.0); LYMPHOCYTES % (AUTO) 4 % (12-44); MEAN CORPUSCULAR HEMOGLOBIN 28 PG (25-34); MEAN CORPUSCULAR HGB CONC 31 G/DL (32-36); MEAN CORPUSCULAR VOLUME 90 FL (80-99); MEAN PLATELET VOLUME 11.6 FL (7.4-10.4); MONOCYTES # (AUTO) 0.1 X 10^3 (0.0-1.0); MONOCYTES % (AUTO) 1 % (0-12); NEUTROPHILS # (AUTO) 5.8 X 10^3 (1.8-7.8); NEUTROPHILS % (AUTO) 95 % (42-75); PLATELET COUNT 204 10^3/uL (130-400); RED CELL DISTRIBUTION WIDTH 15.5 % (10.0-14.5); WHITE BLOOD COUNT 6.2 10^3/uL (4.3-11.0)
[2019-05-25 05:51] LABS: ALANINE AMINOTRANSFERASE 11 U/L (0-55); ALBUMIN 3.7 GM/DL (3.2-4.5); ALKALINE PHOSPHATASE 101 U/L (40-136); BILIRUBIN,TOTAL 0.5 MG/DL (0.1-1.0); BUN/CREATININE RATIO 14; CALCIUM 9.1 MG/DL (8.5-10.1); CARBON DIOXIDE 21 MMOL/L (21-32); CHLORIDE 107 MMOL/L (98-107); CHOLESTEROL 193 MG/DL (< 200); CREATININE SERUM 0.81 MG/DL (0.60-1.30); GFR ESTIMATED > 60; GLUCOSE 101 MG/DL (70-105); HDL CHOLESTEROL 59 MG/DL (40-60); POTASSIUM 4.1 MMOL/L (3.6-5.0); SODIUM 143 MMOL/L (135-145); TOTAL PROTEIN 6.5 GM/DL (6.4-8.2); TRIGLYCERIDES 103 MG/DL (<150); VLDL CHOLESTEROL 21 MG/DL (5-40)
[2019-05-25] MEDS: morphine ER 30 MG (MS CONTIN) TAB PO SCH (06:06)
[2019-05-25 06:12] LABS: BAND NEUTROPHILS 1 %; NEUTROPHILS % (MANUAL) 89 %
[2019-05-25 06:13] LABS: BASOPHILS % (MANUAL) 1 %; LYMPHOCYTES % (MANUAL) 8 %; MONOCYTES % (MANUAL) 1 %; RBC MORPH NORMAL
[2019-05-25] MEDS ORDERED: predniSONE 20 MG TAB PO SCH (07:00)
[2019-05-25 08:00] VITALS: BP 115/65
[2019-05-25] MEDS: guaiFENesin (MUCINEX) 600 MG TAB PO SCH (08:48)
[2019-05-25] MEDS: PREGABALIN 100 MG (LYRICA) CAPSULE PO SCH (08:48)
[2019-05-25] MEDS: APIXABAN 5 MG (ELIQUIS) TABLET PO SCH (08:48)
[2019-05-25] MEDS: FAMOTIDINE 20 MG (PEPCID) TABLET PO SCH (08:49)
[2019-05-25] MEDS ORDERED: MEGESTROL 40 MG (MEGACE) TAB PO SCH (09:00)
[2019-05-25] MEDS ORDERED: FLUTICASONE NASAL SPRAY (FLONASE) 16 GM BTL NS SCH (09:00)
[2019-05-25] MEDS ORDERED: CITA10TA7 PO (09:05)
--- NOTE | 2019-05-25 09:09 | NUR ---
ENTERED [facility] REC USING THE [facility] ORDERS FROM [facility] FOR FT. DOBBINS
[2019-05-25] MEDS: AMIODARONE 200 MG (CORDARONE) TAB PO SCH (09:40)
[2019-05-25] MEDS ORDERED: PRD20T PO (10:59)
--- NOTE | 2019-05-25 14:17 | Occ Therapy Progress Note ---
Therapy Progress Note Pt seen by OT for ~10 minutes for prep to return to [facility]. Pt c/o pain in leg, denies use of transfer w/c and utilizes manual w/c for comfort. Pt max Ax2 for squat-pivot transfers. Pt left with nursing program chair and [facility] fiberline supervisor for transfer. EDER PEDROZA OTR May 25, 2019 14:17
--- NOTE | 2019-05-25 14:21 | Physical Therapy Evaluation ---
PT Evaluation-General Medical Diagnosis Admission Date May 24, 2019 at 05:47 Medical Diagnosis: Fall Onset Date: May 24, 2019 Therapy Diagnosis Therapy Diagnosis: Impaired mobility Height/Weight Height (Feet): 5 Height (Inches): 8.00 Weight (Pounds): 156 Weight (Ounces): 2.0 Precautions Precautions/Isolations: Fall Prevention, Standard Precautions, Pressure Ulcer Weight Bear Status Right Lower Extremity: Right Weight Bearing/Tolerated Left Lower Extremity: Left Weight Bearing/Tolerated Referral Physician: Te Reason for Referral: Evaluation/Treatment Medical History Pertinent Medical History: Alcoholism, COPD Current History ER 2nd to low BP Social History Home: Custodial Current Living Status: Alone PT Steps Into Home: 0 PT Steps Inside Home: 0 Prior Prior Level of Function SCALE: Activities may be completed with or without assistive devices. 4-Fplefrnfvy-onbhbfl completes the activity by him/herself with no assistance from a helper. 5-Set-up or Clean-up Assistance-helper sets up or cleans up; patient completes activity. [place] assists only prior to or following the activity. 4-Supervision or Touching Assistance-helper provides verbal cues and/or touching/steadying and/or contact guard assistance as patient completes activity. Assistance may be provided throughout the activity or intermittently. 3-Partial/Moderate Assistance-helper does LESS THAN HALF the effort. [place] lifts, holds or supports trunk or limbs, but provides less than half the effort. 2-Substantial/Maximal Assistance-helper does MORE THAN HALF the effort. [place] lifts or holds trunk or limbs and provides more than half the effort. 4-Jbpkcdhbp-txxxnv does ALL the effort. Patient does none of the effort to complete the activity. Or, the assistance of 2 or more helpers is required for the patient to complete the activity. If activity was not attempted, code reason: 7-Patient Refused. 9-Not Applicable-not attempted and the patient did not perform the activity before the current illness, exacerbation or injury. 10-Not Attempted due to Environmental Limitations-(lack of equipment, weather restraints, etc.). 88-Not Attempted due to Medical Conditions or Safety Concerns. Bed Mobility: 3 Transfers (B,C,W/C): 1 Gait: 88 Stairs: 09 Indoor Mobility (Ambulation): Dependent Stairs: Not Applicalbe Prior Devices Use: Manual wheelchair Patient unable to stand safely to RW due to foot droop on L side and overall weakness with lack of cognitive level for safe mobility. PT Evaluation-Current Subjective Pain 5/10 in L hip. Objective Patient Orientation: Person, Confused, Place, Eyes Open ROM/Strength Strength Lower Extremities Gross strength is 3/5 with plantar flexion mark 1/5 on L and B dorsiflexion being -3/5. Integumentary/Posture Bladder Incontinence: Yes Neuromuscular (Tone, Coordination, Reflexes) diminished coordination due to inactivity PLOF Sensory Vision: Functional Hearing: Impaired Sensation Right Lower Extremit: Impaired Sensation Left Lower Extremity: Impaired Sensation Lower Extremities below b knees Transfers Sit to Lying (QC): 3 Sit to Stand (QC): 1 Chair/Rvt-cd-Puxwm Xfer(QC): 1 (2x pt for transfer) Gait Walk 10 feet (QC): 9 Walk 50 ft with 2 Turns(QC): 9 Walk 150 ft (QC): 9 Walking 10ft/uneven surface-QC: 9 Wheelchair Training Wheel 50 ft with 2 turns (QC): 88 Wheel 150 ft (QC): 88 Type of Wheelchair: N/A Patient was in too much pain to move w/c and did not have cognitive capacity at time to do it safely. Stairs 1 Step (curb) (QC): 9 4 Steps (QC): 9 12 Steps (QC): 9 Balance Sitting Static: Poor Sitting Dynamic: Poor Standing Static: Poor Standing Dynamic: Poor Assessment/Needs Patient is focused on his pain and is weak due to DX and lack of mobility. He was DC during therapy eval and left with family for his SNF facility post this session. Rehab Potential: Fair PT Plan Problem List Problem List: Activity Tolerance, Functional Strength, Safety, Balance, Gait, Bed Mobility Treatment/Plan Treatment Plan: Discontinue PT Treatment Plan: Bed Mobility, Concurrent Therapy, Education, Functional Activity Brett, Functional Strength, Group Therapy, Therapeutic Exercise, Transfers Treatment Duration: May 25, 2019 Frequency: 1 time per week (Patient DC) Estimated Hrs Per Day: .5 hour per day Safety Risks/Education Patient Education: Gait Training, Transfer Techniques, Correct Positioning, Safety Issues Teaching Recipient: Patient, Family Teaching Methods: Demonstration, Discussion, Audiovisual Response to Teaching: Verbalize Understanding, Return Demonstration, Reinforcement Needed Time/GCodes Time In: 1300 Time Out: 1320 Total Billed Treatment Time: 20 Total Billed Treatment 1 visit EVL 20 WILMAN,ABELARDO PT May 25, 2019 14:21
--- NOTE | 2019-05-25 15:22 | NUR ---
CM/SS: Follow up with [facility] as pt is to be discharged today Plan : Pt will return to [facility] in [place] Summary: [facility] contacted [phone] (Em). She is notified that pt will be discharge today. Em reports they can pickling grader pt when ready. Phone call to [facility] ( Em) to let her know that pt is ready to be picked up. She reports that they will be able to pickling grader pt at 1:00pm.
--- NOTE | 2019-05-25 15:58 | Discharge Summary ---
Discharge Summary Hospital Course Was the Problem List Reviewed?: Yes Problems/Dx: (1) COPD (chronic obstructive pulmonary disease) Status: Acute Qualifiers: Qualified Codes: J44.1 - Chronic obstructive pulmonary disease with (acute) exacerbation Hospital Course Date of Admission: May 24, 2019 at 05:47 Admission Diagnosis : Acute COPD exacerbation Family Physician/Provider: Feliz Hernandez MD Date of Discharge: 05/25/19 Discharge Diagnosis: Acute COPD exacerbation Hospital Course: Clifton Ornelas is a 68 year old male who was admitted with COPD exacerbation. He was treated with nebulizers and steroids and improved rapidly. His oxygen requirement remained at baseline. He was given a taper of steroids on discharge. He was discharged back to his [facility]. He should follow up with his PCP. Labs and Pending Lab Test: Laboratory Tests 05/25/19 04:34: White Blood Count 6.2, Red Blood Count 4.51, Hemoglobin 12.7L, Hematocrit 41, Mean Corpuscular Volume 90, Mean Corpuscular Hemoglobin 28, Mean Corpuscular H emoglobin Concent 31L, Red Cell Distribution Width 15.5H, Platelet Count 204, Mean Platelet Volume 11.6H, Neutrophils (%) (Auto) 95H, Lymphocytes (%) (Auto) 4L, Monocytes (%) (Auto) 1, Eosinophils (%) (Auto) 0, Basophils (%) (Auto) 0, Neutrophils # (Auto) 5.8, Lymphocytes # (Auto) 0.3L, Monocytes # (Auto) 0.1, Eosinophils # (Auto) 0.0, Basophils # (Auto) 0.0, Neutrophils % (Manual) 89, Lymphocytes % (Manual) 8, Monocytes % (Manual) 1, Basophils % (Manual) 1, Band Neutrophils 1, Blood Morphology Comment NORMAL, Sodium Level 143, Potassium Level 4.1, Chloride Level 107, Carbon Dioxide Level 21, Anion Gap 15H, Blood Urea Nitrogen 11, Creatinine 0.81, Estimat Glomerular Filtration Rate > 60, BUN/Creatinine Ratio 14, Glucose Level 101, Calcium Level 9.1, Corrected Calcium 9.3, Total Bilirubin 0.5, Aspartate Amino Transf (AST/SGOT) 21, Alanine Aminotransferase (ALT/SGPT) 11, Alkaline Phosphatase 101, Total Protein 6.5, Albumin 3.7, Triglycerides Level 103, Cholesterol Level 193, LDL Cholesterol Direct 126, VLDL Cholesterol 21, HDL Cholesterol 59 Microbiology 3/15/20 Urine Culture - Final, Complete NO GROWTH Home Meds Active Prednisone 20 Mg Tab 40 Mg PO DAILY@0700 3 Days Reported Citalopram HBr (Citalopram Hydrobromide) 10 Mg Tablet 10 Mg PO DAILY Magnesium (Magnesium Oxide) 400 Mg Tablet 400 Mg PO DAILY Guaifenesin 400 Mg Tablet 400 Mg PO QID Nystatin 15 Gm Powder TOP TID APPLY TO THIGHS AND GROIN UNTIL CLEAR Fluticasone Propionate 16 Gm [place].susp 2 Sprays NS DAILY Zinc (Zinc Gluconate) 30 Mg Tablet 30 Mg PO DAILY Multivitamins (Multivitamin) 1 Each Tablet 1 Tab PO DAILY Megestrol Acetate 400 Mg/10 Ml Oral.susp 5 Ml PO DAILY [Alcohol/Vinegar] 4 Drops EACH EAR PRN PRN ALCOHOL/WHITE VINEGAR EQUAL PARTS Nystatin-Triamcinolone Ointm (Nystatin/Triamcinolone) 15 Gm Oint TP BID PRN Ibu (Ibuprofen) 400 Mg Tablet 400 Mg PO TID PRN Tylenol Extra Strength (Acetaminophen) 500 Mg Tablet 500 Mg PO Q6H PRN Tea Tree (Tea Tree Oil) 1 Ml Oil 4 Drop EACH EAR BID PRN Zofran (Ondansetron HCl) 4 Mg Tab 4 Mg PO Q4H PRN Iprat-Albut 0.5-3(2.5) mg/3 ml (Ipratropium/Albuterol Sulfate) 3 Ml Ampul.neb 3 Ml NEB Q6H PRN Lyrica (Pregabalin) 225 Mg Capsule 225 Mg PO TID Alprazolam 0.5 Mg Tablet 0.5 Mg PO HS Morphine Sulfate ER (Morphine Sulfate) 30 Mg Tablet.er 30 Mg PO 0600,1400,2200 Flomax (Tamsulosin HCl) 0.4 Mg Cap 0.8 Mg PO HS TAKES 2 (0.4MG) CAPSULES Eliquis (Apixaban) 5 Mg Tablet 5 Mg PO BID Quetiapine Fumarate 50 Mg Tablet 50 Mg PO HS Citalopram HBr (Citalopram Hydrobromide) 20 Mg Tablet 20 Mg PO DAILY Famotidine 20 Mg Tablet 20 Mg PO BID Amiodarone HCl 200 Mg Tablet 200 Mg PO Q12H Tramadol HCl 50 Mg Tablet 100 Mg PO Q6H PRN Assessment/Pt Instructions Take medications as prescribed. Complete your course of steroids. Follow up with your primary care physician. Discharge Planning: <30 minutes discharge planning Discharge Instructions Discharge Diet: No Restrictions Activity as Tolerated: Yes Discharge Physical Examination Vital Signs Vital Signs Date Time Temp Pulse Resp B/P (MAP) Pulse Ox O2 Delivery O2 Flow Rate FiO2 05/25/19 08:00 99 Nasal Cannula 2.00 99 05/25/19 08:00 36.3 75 18 115/65 (82) General Appearance: No Apparent Distress, Thin Respiratory: Lungs Clear, Normal Breath Sounds, No Respiratory Distress Cardiovascular: Regular Rate, Rhythm, No Edema, No Murmur Gastrointestinal: Normal Bowel Sounds, Non Tender, Soft, Other (urostomy in place) Extremity: Normal Inspection, Non Tender, No Pedal Edema Skin: Normal Color, Warm/Dry Neurologic/Psychiatric: Alert, Normal Mood/Affect Allergies: Coded Allergies: No Known Drug Allergies (Unverified , 05/24/19) Discharge Summary Date of Admission May 24, 2019 at 05:47 Date of Discharge May 25, 2019 at 13:25 Discharge Date: May 25, 2019 Discharge Time: 13:25 Admission Diagnosis Acute on Chronic hypercapnic respiratory failure Discharge Diagnosis (1) COPD (chronic obstructive pulmonary disease) Status: Acute Qualifiers: Qualified Codes: J44.1 - Chronic obstructive pulmonary disease with (acute) exacerbation Clinical Quality Measures DVT/VTE Risk/Contraindication: Risk Factor Score Per Nursin RFS Level Per Nursing on Admit: 4+=Very High BERRY BISHOP MD May 25, 2019 15:58
== END 2019-05-25 13:25 ==
LOC: EDUNIT# 02:23 → ER FS 02:28 → 4TH 05:47
PROVIDERS: ADMIT Family Medicine; ATTEND Family Medicine
DX: J44.1 Chronic obstructive pulmonary disease with (acute) exacerbation (principal); J96.22 Acute and chronic respiratory failure with hypercapnia; G35 Multiple sclerosis; M19.90 Unspecified osteoarthritis, unspecified site; N18.9 Chronic kidney disease, unspecified; I12.9 Hypertensive chronic kidney disease with stage 1 through stage 4 chronic kidney disease, or unspecified chronic kidney disease; I48.91 Unspecified atrial fibrillation; I95.9 Hypotension, unspecified; G89.29 Other chronic pain; F32.9 Major depressive disorder, single episode, unspecified; F17.210 Nicotine dependence, cigarettes, uncomplicated; Z79.01 Long term (current) use of anticoagulants; Z79.899 Other long term (current) drug therapy
CPT/HCPCS: 36415; 70450; 71045; 80053; 80061; 80306; 80320; 81000; 82805; 83735; 83874; 83880; 84484; 85007; 85025; 85027; 85610; 85730; 87088; 93005; 93041; 94010; 94760; G0378

== ENCOUNTER 2019-09-06 22:07 | Inpatient (IN) | payer MEDICARE, MEDICAID ==
[~2019-09-06] VITALS: Ht 172.7 cm; Wt 65.1 kg
[~2019-09-06 22:07] MED LIST changes: +CITA10TA7 PO; +MULT-567 PO; -MULT1TAB69 PO
--- NOTE | 2019-09-06 22:12 | ED General ---
General Stated Complaint: WEAKNESS History of Present Illness Date Seen by Provider: Sep 06, 2019 Time Seen by Provider: 22:12 Initial Comments Patient is a 69-year-old chronically ill-appearing male who is brought to the emergency department today [facility]. senior care staff report he had some intermittent low blood pressures and also that he developed a fever over the last 24 hours. Patient has baseline dementia and can provide very little history. He does answer yes no questions. He denies com plaints on arrival to the ER. He is very hot to touch. Reported by EMS that the patient is full code. Allergies and Home Medications Allergies Coded Allergies: No Known Drug Allergies (Unverified , 05/24/19) Home Medications Acetaminophen 500 Mg Tablet, 500 MG PO Q6H PRN for PAIN-MILD OR TEMPATURE, (Reported) Alprazolam 0.5 Mg Tablet, 0.5 MG PO HS, (Reported) Amiodarone HCl 200 Mg Tablet, 200 MG PO Q12H, (Reported) Apixaban 5 Mg Tablet, 5 MG PO BID, (Reported) Citalopram Hydrobromide 20 Mg Tablet, 20 MG PO DAILY, (Reported) Citalopram Hydrobromide 10 Mg Tablet, 10 MG PO DAILY, (Reported) Famotidine 20 Mg Tablet, 20 MG PO BID, (Reported) Fluticasone Propionate 16 Gm [place].susp, 2 SPRAYS NS DAILY, (Reported) Guaifenesin 400 Mg Tablet, 400 MG PO QID, (Reported) Ibuprofen 400 Mg Tablet, 400 MG PO TID PRN for PAIN-MILD, (Reported) Ipratropium/Albuterol Sulfate 3 Ml Ampul.neb, 3 ML NEB Q6H PRN for SHORTNESS OF BREATH, (Reported) Magnesium Oxide 400 Mg Tablet, 400 MG PO DAILY, (Reported) Megestrol Acetate 400 Mg/10 Ml Oral.susp, 5 ML PO DAILY, (Reported) Morphine Sulfate 30 Mg Tablet.er, 30 MG PO 0600,1400,2200, (Reported) Multivitamin 1 Each Tablet, 1 TAB PO DAILY, (Reported) Nystatin 15 Gm Powder, TOP TID, (Reported) APPLY TO THIGHS AND GROIN UNTIL CLEAR Nystatin/Triamcinolone 15 Gm Oint, TP BID PRN for STOMA, (Reported) Ondansetron HCl 4 Mg Tab, 4 MG PO Q4H PRN for NAUSEA/VOMITING-1ST LINE, (Reported) Prednisone 20 Mg Tab, 40 MG PO DAILY@0700 Prescribed by: BERRY BISHOP on 05/25/19 1059 Pregabalin 225 Mg Capsule, 225 MG PO TID, (Reported) Quetiapine Fumarate 50 Mg Tablet, 50 MG PO HS, (Reported) Tamsulosin HCl 0.4 Mg Cap, 0.8 MG PO HS, (Reported) TAKES 2 (0.4MG) CAPSULES Tea Tree Oil 1 Ml Oil, 4 DROP EACH EAR BID PRN for EAR, (Reported) Tramadol HCl 50 Mg Tablet, 100 MG PO Q6H PRN for PAIN-MODERATE, (Reported) Zinc Gluconate 30 Mg Tablet, 30 MG PO DAILY, (Reported) [Alcohol/Vinegar] , 4 DROPS EACH EAR PRN PRN for EAR PAIN, (Reported) ALCOHOL/WHITE VINEGAR EQUAL PARTS Patient Home Medication List Home Medication List Reviewed: Yes Review of Systems Review of Systems Constitutional: see HPI, fever Respiratory: no symptoms reported Cardiovascular: no symptoms reported Musculoskeletal: no symptoms reported Skin: no symptoms reported All Other Systems Reviewed Negative Unless Noted: Yes Past Cdcssao-Hytlzh-Cvenyz Hx Patient Social History Alcohol Beverage of Choice: Beer Type Used: Cigarettes 2nd Hand Smoke Exposure: No Recent Foreign Travel: No Contact w/Someone Who Travel: No Recent Hopitalizations: No Immunizations Up To Date Date of Pneumonia Vaccine: Dec 09, 2017 Date of Influenza Vaccine: Dec 09, 2017 Seasonal Allergies Seasonal Allergies: No Past Medical History Surgeries: Yes (Colostomy) Respiratory: Yes COPD, Emphysema Cardiac: Yes (CHF) Irregular Heartbeat Neurological: Yes Multiple Sclerosis Genitourinary: Yes (renal insufficiency) Gastrointestinal: Yes (Colostomy; ventral hernia) Musculoskeletal: Yes Arthritis Endocrine: No HEENT: No Cancer: No Psychosocial: Yes Depression Integumentary: No Blood Disorders: No Family Medical History FH: CHF (congestive heart failure) 19 FATHER, , Age:70, Onset:60 years & older Physical Exam Vital Signs Vital Signs - First Documented 09/06/19 23:13 Temp 40.0 Pulse 115 Resp 21 B/P (MAP) 147/113 (124) O2 Delivery Nasal Cannula O2 Flow Rate 6.00 Capillary Refill : Height, Weight, BMI Height: 5'8.00" Weight: 156lbs. 2.0oz. [id number]; 19.88 BMI Method:Stated General Appearance: No Apparent Distress HEENT: PERRL/EOMI, Pharynx Normal Neck: Non Tender, Supple Respiratory: Chest Non Tender, Other (diminished breath sounds to auscultation with a few scattered wheezes. No increased work of breathing) Cardiovascular: Tachycardia Gastrointestinal: Non Tender, Soft, Hernia, Other (ostomy bag present over the right lower quadrant and draining brown stool) Back: Other (patient has clean dry bandages 2 over the lower coccyx area and right posterior pelvis. No local redness of the skin or purulence) Neurologic/Psychiatric: Other (awake alert. Answering yes no questions. Protect his airway. No facial asymmetry. Has baseline tremor) Skin: Other (hot to touch) Focused Exam Lactate Level 09/06/19 00:45: 09/06/19 22:45: Lactic Acid Level 3.68*H Lactic Acid Level Laboratory Tests Test 09/06/19 22:45 Lactic Acid Level 3.68 MMOL/L (0.50-2.00) *H Procedures/Interventions Date of ETT Placement: Sep 03, 2018 Time of ETT Placement: 1032 Progress/Results/Core Measures Suspected Sepsis SIRS Temperature: Pulse: Respiratory Rate: Laboratory Tests 09/06/19 22:45: White Blood Count 13.6H Blood Pressure / Mean: 09/06/19 00:45: 09/06/19 22:45: Lactic Acid Level 3.68*H Laboratory Tests 09/06/19 22:45: Creatinine 1.08, Platelet Count 229, Total Bilirubin 3.8H Results/Orders Lab Results Laboratory Tests Test 09/06/19 00:45 09/06/19 22:45 09/06/19 23:50 Range/Units White Blood Count 13.6 H 4.3-11.0 10^3/uL Red Blood Count 4.72 4.35-5.85 10^6/uL Hemoglobin 13.5 13.3-17.7 G/DL Hematocrit 42 40-54 % Mean Corpuscular Volume 89 80-99 FL Mean Corpuscular Hemoglobin 29 25-34 PG Mean Corpuscular Hemoglobin Concent 32 32-36 G/DL Red Cell Distribution Width 17.1 H 10.0-14.5 % Platelet Count 229 130-400 10^3/uL Mean Platelet Volume 11.4 H 7.4-10.4 FL Neutrophils (%) (Auto) 93 H 42-75 % Lymphocytes (%) (Auto) 2 L 12-44 % Monocytes (%) (Auto) 5 0-12 % Eosinophils (%) (Auto) 0 0-10 % Basophils (%) (Auto) 0 0-10 % Neutrophils # (Auto) 12.6 H 1.8-7.8 X 10^3 Lymphocytes # (Auto) 0.2 L 1.0-4.0 X 10^3 Monocytes # (Auto) 0.6 0.0-1.0 X 10^3 Eosinophils # (Auto) 0.0 0.0-0.3 10^3/uL Basophils # (Auto) 0.0 0.0-0.1 10^3/uL Neutrophils % (Manual) 97 % Lymphocytes % (Manual) 2 % Monocytes % (Manual) 1 % Toxic Granulation 4+ Clumped Platelets OCCASIONAL Polychromasia SLIGHT Poikilocytosis SLIGHT Sodium Level 138 135-145 MMOL/L Potassium Level 5.5 H 3.6-5.0 MMOL/L Chloride Level 99 98-107 MMOL/L Carbon Dioxide Level 23 21-32 MMOL/L Anion Gap 16 H 5-14 MMOL/L Blood Urea Nitrogen 27 H 7-18 MG/DL Creatinine 1.08 0.60-1.30 MG/DL Estimat Glomerular Filtration Rate > 60 BUN/Creatinine Ratio 25 Glucose Level 106 H 70-105 MG/DL Lactic Acid Level 3.68 *H 0.50-2.00 MMOL/L Calcium Level 9.3 8.5-10.1 MG/DL Corrected Calcium 9.7 8.5-10.1 MG/DL Total Bilirubin 3.8 H 0.1-1.0 MG/DL Aspartate Amino Transf (AST/SGOT) 52 H 5-34 U/L Alanine Aminotransferase (ALT/SGPT) 64 H 0-55 U/L Alkaline Phosphatase 411 H 40-136 U/L Troponin I < 0.30 <0.30 NG/ML Total Protein 6.9 6.4-8.2 GM/DL Albumin 3.5 3.2-4.5 GM/DL Smear Scan LARGE PLT Urine Color DARK YELLOW Urine Clarity CLOUDY Urine pH 7.5 5-9 Urine Specific [place] 1.015 L 1.016-1.022 Urine Protein TRACE H NEGATIVE Urine Glucose (UA) NEGATIVE NEGATIVE Urine Ketones NEGATIVE NEGATIVE Urine Nitrite NEGATIVE NEGATIVE Urine Bilirubin 2+ H NEGATIVE Urine Urobilinogen 1.0 < = 1.0 MG/DL Urine Leukocyte Esterase TRACE H NEGATIVE Urine RBC (Auto) NEGATIVE NEGATIVE Urine RBC NONE /HPF Urine WBC 25-50 H /HPF Urine Squamous Epithelial Cells 2-5 /HPF Urine Crystals NONE /LPF Urine Bacteria LARGE H /HPF Urine Casts NONE /LPF Urine Mucus NEGATIVE /LPF Urine Culture Indicated NO My Orders Orders - MAINOR JACKSON DO Ed Iv/Invasive Line Start (09/06/19 22:15) Ekg Tracing (09/06/19 22:15) Troponin I Fs (09/06/19 22:15) Cbc With Automated Diff (09/06/19 22:15) Comprehensive Metabolic Panel (09/06/19 22:15) Lactic Acid Analyzer (09/06/19 22:15) Coronavirus Sars-Cov-2 So 2018 (09/06/19 22:15) Blood Culture (09/06/19 22:15) Chest 1 View Ap/Pa Only (09/06/19 22:15) Urinalysis (09/06/19 22:15) Urine Culture (09/06/19 22:15) Ns Iv 500 Ml (Sodium Chloride 0.9%) (09/06/19 22:30) Acetaminophen Suppository (Tylenol Suppo (09/06/19 22:30) Acetaminophen Suppository (Tylenol Suppo (09/06/19 22:30) Procalcitonin (Pct) (09/06/19 22:24) Manual Differential (09/06/19 22:45) Ns Iv 500 Ml (Sodium Chloride 0.9%) (09/06/19 23:45) Vancomycin Injection (Vancomycin Injecti (09/06/19 23:45) Piperacillin Sodium/Tazobactam (Zosyn Vi (09/06/19 23:45) Ketorolac Injection (Toradol Injection) (09/06/19 23:45) Blood Culture (09/07/19 00:04) Medications Given in ED Current Medications Medications Dose Ordered Sig/Ignacio Route Start Time Stop Time Status Last Admin Dose Admin Acetaminophen 325 mg Q4H PRN SD 09/06/19 22:30 09/06/19 22:53 325 MG Acetaminophen 650 mg ONCE ONCE SD 09/06/19 22:30 09/06/19 22:31 DC 09/06/19 22:53 650 MG Ketorolac Tromethamine 15 mg ONCE ONCE IVP 09/06/19 23:45 09/06/19 23:52 DC 09/07/19 00:15 15 MG Piperacillin Sod/ Tazobactam Sod 4.5 gm/Sodium Chloride 100 ml @ 200 mls/hr ONCE ONCE IV 09/06/19 23:45 09/07/19 00:14 DC 09/07/19 00:15 200 MLS/HR Vancomycin HCl 1000 mg/Sodium Chloride 250 ml @ 250 mls/hr ONCE ONCE IV 09/06/19 23:45 09/07/19 00:44 DC 09/07/19 00:16 250 MLS/HR Vital Signs/I&O 09/06/19 23:13 Temp 40.0 Pulse 115 Resp 21 B/P (MAP) 147/113 (124) O2 Delivery Nasal Cannula O2 Flow Rate 6.00 09/07/19 00:00 Intake Total 500 ml Balance 500 ml Capillary Refill : Progress Note : Time: 23:30 Progress Note Patient is evaluated immediately on arrival to his room. He is sitting upright in the bed and is alert. He has no acute distress and no increased work of breathing. He is answering questions. He denies shortness of breath or cough. He is uncertain if he has had a fever. He currently denies pain. Septic workup is immediately ordered and COVID test. After blood cultures are collected, we will begin empiric antibiotic therapy. Will give fluid bolus with goal of 30 mL/kg in judicious amounts initially. 00:45: Results are reviewed. I do not appreciate acute findings or changes on chest x-ray although radiologist reading is pending. Patient has significant pyuria. Mild leukocytosis. Lactate is elevated above 3. Vancomycin and Zosyn were empirically ordered and given prior to return of urinalysis. Would switch antibiotics at this point to Rocephin which is ordered on the inpatient temporary order sheet. Between antibiotics and fluids, patient has had total of 1350 mL of fluid bolus in the ER. We'll order one additional 500 male[address] I spoke to Dr. Hayes about this patient who was agreeable to admit to medical surgical unit. I feel the patient is stable for MedSurg as his vitals have been stable and heart rate improving during the ED course. Patient is now awake and alert. He answers questions appropriately. He denies complaints. EMS will be notified for transfer to [place] for admission. ECG Initial ECG Impression Date: Sep 06, 2019 Initial ECG Impression Time: 23:05 Initial ECG Rate: 109 Initial ECG Rhythm: S.Tach Departure Communication (Admissions) Time/Spoke to Admitting Phy: 00:45 Dr. Hayes Impression Primary Impression: Urinary tract infection Disposition: ADMITTED INPATIENT Condition: Improved Admissions Decision to Admit Reason: Admit from ER (General) Decision to Admit/Date: Sep 07, 2019 Time/Decision to Admit Time: 00:30 Departure-Patient Inst. Referrals: ROCHELLE VASQUEZ MD (PCP/Family) Primary Care Physician MAINOR JACKSON DO Sep 06, 2019 22:12
--- OUTSIDE RECORDS SUMMARY | 2019-09-06 22:17 | XMS REPORT | Continuity of Care Document ---
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 UPHOLSTERER Ot L89.153 PRESSURE ULCER OF [place], STAGE 3 07/11/2018 SOMMER DO, STEFF L Ot G35 MULTIPLE SCLEROSIS 07/11/2018 SOMMER DO, STEFF L Ot J44.9 CHRONIC OBSTRUCTIVE PULMONARY DISEASE, U 07/11/2018 SOMMER DO, STEFF L Ot R06.2 WHEEZING 07/11/2018 SOMMER DO, STEFF L Ot Z79.0 1 GROUP HOME (CURRENT) USE OF ANTICOAGULANT 07/11/2018 SOMMER DO, STEFF L Ot Z79.5 1 GROUP HOME (CURRENT) USE OF INHALED STERO 07/11/2018 SOMMER DO, STEFF L Ot Z79.5 2 GROUP HOME (CURRENT) USE OF SYSTEMIC STER 07/11/2018 SOMMER [...] SOMMER DO, STEFF L Ot Z79.0 1 GROUP HOME (CURRENT) USE OF ANTICOAGULANT 07/17/2018 SOMMER DO, STEFF L Ot Z79.5 1 PROP AND SCENERY MAKER (CURRENT) USE OF INHALED STERO 07/17/2018 SOMMER DO, STEFF L Ot Z79.5 2 GROUP HOME (CURRENT) USE OF SYSTEMIC STER 07/17/2018 SOMMER [...] Ot G35 MULTIPLE SCLEROSIS 09/08/2018 ROZ WILKINS MD, Ot G89. 4 CHRONIC PAIN SYNDROME 09/08/2018 [...] WILKINS MD Ot Y95 NOSOCOMIAL CONDITION 09/08/2018 ORZ WILKINS MD Ot Z93. 3 COLOSTOMY STATUS [...] BREATHING 12/08/2018 FIORELLA ROQUE MD Ot Z79.01 PROP AND SCENERY MAKER (CURRENT) USE OF ANTICOAGULANT 12/08/2018 FIORELLA ROQUE MD Ot Z79.51 PROP AND SCENERY MAKER (CURRENT) USE OF INHALED STERO 12/08/2018 FIORELLA ROQUE MD Ot Z82.49 FAMILY HX OF ISCHEM HEART DIS AND OTH DI 05/25/2019 ROZ WILKINS MD Ot F17.210 NICOTINE DEPENDENCE, CIGARETTES, UNCOMPL 05/25/2019 ROZ WILKINS MD Ot F32. 9 MAJOR DEPRESSIVE DISORDER, SINGLE EPISOD 05/25/2019 ROZ WILKINS MD Ot G35 MULTIPLE SCLEROSIS 05/25/2019 ROZ WILKINS MD Ot G89. 29 OTHER CHRONIC PAIN 05/25/2019 ROZ WILKINS MD Ot I12. 9 HYPERTENSIVE CHRONIC KIDNEY DISEASE W ST 05/25/2019 ROZ WILKINS MD Ot I48. 91 UNSPECIFIED ATRIAL FIBRILLATION 05/25/2019 ROZ WILKINS MD Ot I95. 9 HYPOTENSION, UNSPECIFIED 05/25/2019 ROZ WILKINS MD Ot J44. 1 CHRONIC OBSTRUCTIVE PULMONARY DISEASE W 05/25/2019 ROZ WILKINS MD Ot J96. 22 ACUTE AND CHRONIC RESPIRATORY FAILURE [place] 05/25/2019 ROZ WILKINS MD Ot M19. 90 UNSPECIFIED OSTEOARTHRITIS, UNSPECIFIED 05/25/2019 ROZ WILKINS MD Ot N18. 9 CHRONIC KIDNEY DISEASE, UNSPECIFIED 05/25/2019 ROZ WILKINS MD Ot Z79. 01 GROUP HOME (CURRENT) USE OF ANTICOAGULANT 05/25/2019 ROZ WILKINS MD Ot Z79.899 OTHER PROP AND SCENERY MAKER (CURRENT) DRUG THERAPY 05/25/2019 ROZ WILKINS MD Ot F17.210 NICOTINE DEPENDENCE, CIGARETTES, UNCOMPL 05/25/2019 ROZ WILKINS MD Ot F32. 9 MAJOR DEPRESSIVE DISORDER, SINGLE EPISOD 05/25/2019 ROZ WILKINS MD Ot G35 MULTIPLE SCLEROSIS 05/25/2019 ROZ WILKINS MD Ot G89. 29 OTHER CHRONIC PAIN 05/25/2019 ROZ WILKINS MD Ot I12. 9 HYPERTENSIVE CHRONIC KIDNEY DISEASE W ST 05/25/2019 ROZ WILKINS MD Ot I48. 91 UNSPECIFIED ATRIAL FIBRILLATION 05/25/2019 ROZ WILKINS MD Ot I95. 9 HYPOTENSION, UNSPECIFIED 05/25/2019 ROZ WILKINS MD Ot J44. 1 CHRONIC OBSTRUCTIVE PULMONARY DISEASE W 05/25/2019 ROZ WILKINS MD Ot J96. 22 ACUTE AND CHRONIC RESPIRATORY FAILURE [place] 05/25/2019 ROZ WILKINS MD Ot M19. 90 UNSPECIFIED OSTEOARTHRITIS, UNSPECIFIED 05/25/2019 ROZ WILKINS MD Ot N18. 9 CHRONIC KIDNEY DISEASE, UNSPECIFIED 05/25/2019 ROZ WILKINS MD Ot Z79. 01 PROP AND SCENERY MAKER (CURRENT) USE OF ANTICOAGULANT 05/25/2019 ROZ WILKINS MD Ot Z79.899 OTHER PROP AND SCENERY MAKER (CURRENT) DRUG THERAPY 06/10/2019 ROZ WILKINS MD Ot F17.210 NICOTINE DEPENDENCE, CIGARETTES, UNCOMPL 06/10/2019 ROZ WILKINS MD Ot F32. 9 MAJOR DEPRESSIVE DISORDER, SINGLE EPISOD 06/10/2019 ROZ WILKINS MD Ot G35 MULTIPLE SCLEROSIS 06/10/2019 ROZ WILKINS MD Ot G89. 29 OTHER CHRONIC PAIN 06/10/2019 ROZ WILKINS MD Ot I12. 9 HYPERTENSIVE CHRONIC KIDNEY DISEASE W ST 06/10/2019 ROZ WILKINS MD Ot I48. 91 UNSPECIFIED ATRIAL FIBRILLATION 06/10/2019 ROZ WILKINS MD Ot I95. 9 HYPOTENSION, UNSPECIFIED 06/10/2019 ROZ WILKINS MD Ot J44. 1 CHRONIC OBSTRUCTIVE PULMONARY DISEASE W 06/10/2019 ROZ WILKINS MD Ot J96. 22 ACUTE AND CHRONIC RESPIRATORY FAILURE [place] 06/10/2019 ROZ WILKINS MD Ot M19. 90 UNSPECIFIED OSTEOARTHRITIS, UNSPECIFIED 06/10/2019 ROZ WILKINS MD Ot N18. 9 CHRONIC KIDNEY DISEASE, UNSPECIFIED 06/10/2019 ROZ WILKINS MD Ot Z79. 01 GROUP HOME (CURRENT) USE OF ANTICOAGULANT 06/10/2019 ROZ WILKINS MD Ot Z79.899 OTHER GROUP HOME (CURRENT) DRUG THERAPY 06/10/2019 ROZ WILKINS MD Ot F17.210 NICOTINE DEPENDENCE, CIGARETTES, UNCOMPL 06/10/2019 ROZ WILKINS MD Ot F32. 9 MAJOR DEPRESSIVE DISORDER, SINGLE EPISOD 06/10/2019 ROZ WILKINS MD Ot G35 MULTIPLE SCLEROSIS 06/10/2019 ROZ WILKINS MD Ot G89. 29 OTHER CHRONIC PAIN 06/10/2019 ROZ WILKINS MD Ot I12. 9 HYPERTENSIVE CHRONIC KIDNEY DISEASE W ST 06/10/2019 ROZ WILKINS MD Ot I48. 91 UNSPECIFIED ATRIAL FIBRILLATION 06/10/2019 ROZ WILKINS MD Ot I95. 9 HYPOTENSION, UNSPECIFIED 06/10/2019 ROZ WILKINS MD Ot J44. 1 CHRONIC OBSTRUCTIVE PULMONARY DISEASE W 06/10/2019 ROZ WILKINS MD Ot J96. 22 ACUTE AND CHRONIC RESPIRATORY FAILURE [place] 06/10/2019 ROZ WILKINS MD Ot M19. 90 UNSPECIFIED OSTEOARTHRITIS, UNSPECIFIED 06/10/2019 ROZ WILKINS MD Ot N18. 9 CHRONIC KIDNEY DISEASE, UNSPECIFIED 06/10/2019 ROZ WILKINS MD Ot Z79. 01 PROP AND SCENERY MAKER (CURRENT) USE OF ANTICOAGULANT 06/10/2019 ROZ WILKINS MD Ot Z79.899 OTHER GROUP HOME (CURRENT) DRUG THERAPY Procedures Code [place] [address] ROUT INE VENIPUNCTURE RAMIRO SOLOMON MDO C 02/24/2010 10879 COMP REHEN METABOLIC PANEL RAMIRO SOLOMON MDO C 02/24/2010 07193 COMP LETE CBC W/AUTO DIFF WBC TEX SOLOMON MDWALDO C 02/24/2010 28495 CULT URE, BACTERIA, OTHER JUANITO PHELAN KRISTIN C 02/24/2010 42946 NUBIA I IDENTIFICATION, MOLD JUANITO PHELAN KRISTIN C 02/24/2010 88914 CULT URE TYPE, IMMUNOLOGIC JUANITO PHELAN KRISTIN C 02/24/2010 72270 SMEA R, GRAM STAIN JUANITO PHELAN KRISTIN C 02/24/2010 31958 ROUT INE VENIPUNCTURE KRISTIN SOLOMON MD C 04/05/2010 32422 COMP REHEN METABOLIC PANEL KRISTIN SOLOMON MD C 04/05/2010 66755 COMP LETE CBC W/AUTO DIFF WBC TEX SOLOMON MDWALDO C 04/05/2010 45830 CULT URE, BACTERIA, OTHER JUANITO PHELAN, [facility] 04/05/2010 38915 NUBIA I IDENTIFICATION, MOLD JUANITO PHELAN, [facility] 04/05/2010 51142 SMEA R, GRAM STAIN JUANITO PHELAN, [facility] 04/05/2010 83592 ROUT INE VENIPUNCTURE JUANITO PHELAN, [facility] 06/01/2010 35399 COMP REHEN METABOLIC PANEL JUANITO PHELAN, [facility] 06/01/2010 49215 BL S MEAR W/DIFF WBC COUNT JUANITO PHELAN, [facility] 06/01/2010 92471 COMP LETE CBC, AUTOMATED JUANITO PHELAN, [facility] 06/01/2010 41834 ROUT INE VENIPUNCTURE JUANITO PHELAN, [facility] 06/07/2010 20303 CHES T X-RAY JUANITO PHELAN [facility] 06/07/2010 69895 X-RA Y EXAM OF RIBS JUANITO PHELAN, [facility] 06/07/2010 11393 X-RA Y EXAM OF PELVIS JUANITO PHELAN, [facility] 06/07/2010 15749 COMP REHEN METABOLIC PANEL JUANITO PHELAN [facility] 06/07/2010 [address]38 [address] S MEAR W/DIFF WBC COUNT JUANITO PHELAN, [facility] 06/07/2010 22943 COMP LETE CBC, AUTOMATED JUANITO PHELAN, [facility] 06/07/2010 35470 THER /PROPH/DIAG INJ, SC/IM JUANITO PHELAN, [facility] 06/07/2010 68582 POOJA GENCY DEPT VISIT JUANITO PHELAN, [facility] 06/07/2010 A0425 GROU ND OLINDA SOLOMON MD, [facility] 06/07/2010 A0429 BLS EMERGENCY JUANITO PHELAN, [facility] 06/07/2010 86397 OFFI CE/OUTPATIENT VISIT, MATTY AGUSTIN MD, [facility] [place] 07/11/2010 15568 META BOLIC PANEL TOTAL CA JUANITO PHELAN, [facility] 07/12/2010 32198 OFFI CE/OUTPATIENT VISIT, MATTY AGUSTIN MD, DARA [place] 2010 28274 X-RA Y EXAM OF HIP NIKOLE PHELAN, D[facility] [place] 09/12/2010 95953 OFFI CE/OUTPATIENT VISIT, MATTY AGUSTIN MD, DARA R 09/12/2010 35579 WITH DRAWAL OF ARTERIAL BLOOD JUANITO PHELAN [facility] 09/25/2010 25201 INSE RT TEMP BLADDER CATH JUANITO PHELAN [facility] 09/25/[address] H EAD/BRAIN W/O DYE JUANITO PHELAN [facility] 09/25/2010 73108 CHES T X-RAY JUANITO PHELAN [facility] 09/25/2010 47061 X-RA Y EXAM OF ABDOMEN JUANITO PHELAN [facility] 09/25/2010 41565 COMP REHEN METABOLIC PANEL JUANITO PHELAN [facility] 09/25/2010 56298 ASSA Y OF SALICYLATE JUANITO PHELAN [facility] 09/25/2010 76823 URIN ALYSIS, AUTO W/SCOPE JUANITO PHELAN [facility] 09/25/2010 09087 ASSA Y OF ACETAMINOPHEN JUANITO PHELAN [facility] 09/25/2010 88805 ASSA Y OF ETHANOL JUANITO PHELAN [facility] 09/25/2010 62438 ASSA Y OF CK (CPK) JUANITO PHELAN [facility] 09/25/2010 83901 CREAna M MORGAN, MB FRACTION JUANITO PHELAN [facility] 09/25/2010 32331 BLOO D GASES: PH, PO2 & PCO2 JUANITO PHELAN [facility] 09/25/2010 60109 NATR IURETIC PEPTIDE JUANITO PHELAN [facility] 09/25/2010 38967 ASSA Y OF TROPONIN, QUANT JUANITO PHELAN [facility] 09/25/2010 61801 COMP LETE CBC W/AUTO DIFF WBC JUANITO PHELAN [facility] 09/25/2010 86637 PROT HROMBIN TIME JUANITO PHELAN KRISTIN C 09/25/2010 85562 THRO MBOPLASTIN TIME, PARTIAL JUANITO PHELAN [facility] C 09/25/2010 68750 CULT URE AEROBIC IDENTIFY JUANITO PHELAN [facility]STIN C 09/25/2010 68945 URIN E CULTURE/COLONY COUNT JUANITO PHELAN [facility] C 09/25/2010 65164 URIN E BACTERIA CULTURE JUANITO PHELAN [facility] C 09/25/2010 19249 MICR OBE SUSCEPTIBLE, DAVID JUANITO PHELAN [facility] C 09/25/2010 42945 ELEC TROCARDIOGRAM, TRACING JUANITO PHELAN, [facility]ST[facility] C 09/25/2010 39659 THER /PROPH/DIAG INJ, IV PUSH JUANITO PHELAN, KRISTIN C 09/25/2010 61616 TX/P RO/DX INJ NEW DRUG NILEON JUANITO PHELAN, [facility] 09/25/2010 55907 POOJA GENCY DEPT VISIT JUANITO PHELAN, KRISTIN C 09/25/2010 G0431 DRUG SCREEN SINGLE CLASS JUANITO PHELAN, KRISTIN C 09/25/2010 J1644 HEPA RIN INJECTION JUANITO PHELAN, [facility]STIN C 09/25/2010 96463 ELEC TROCARDIOGRAM REPORT DWAINE PHELAN, JOANNA L 09/25/2010 A0425 GROU ND OLINDA SOLOMON MD, [facility] 09/25/2010 A0427 ALS1 EMERGENCY JUANITO PHELAN, [facility] 09/25/2010 66330 OFFI CE/OUTPATIENT VISIT, EST JERONIMO PHELAN, [facility] R 10/24/2010 47166 ROUT INE VENIPUNCTURE JUANITO PHELAN, KRISTIN C 11/13/2010 02756 CHES T X-RAY JUANITO PHELAN, [facility]ST[facility] C 11/13/2010 85749 COMP REHEN METABOLIC PANEL JUANITO PHELAN, K[facility]STIN C 11/13/2010 71228 URIN ALYSIS, AUTO W/SCOPE JUANITO PHELAN, [facility] C 11/13/2010 56692 ASSA Y OF CK (CPK) JUANITO PHELAN, [facility] C 11/13/2010 86755 CREA CATHY, MB FRACTION JUANITO PHELAN, [facility] C 11/13/2010 23914 NATR IURETIC PEPTIDE JUANITO PHELAN, [facility]ST[facility] C 11/13/2010 69342 ASSA Y OF TROPONIN, QUANT JUANITO PHELAN, [facility] C 11/13/2010 94907 COMP LETE CBC W/AUTO DIFF WBC JUANITO PHELAN, [facility] C 11/13/2010 84764 URIN E CULTURE/COLONY COUNT JUANITO PHELAN, [facility] C 11/13/2010 21591 CULT URE TYPE, IMMUNOLOGIC JUANITO PHELAN, KRISTIN C 11/13/2010 65874 IMMU NIZATION ADMIN JUANITO PHELAN, [facility] C 11/13/2010 66377 TD V ACCINE > 7, IM JUANITO PHELAN, [facility] 11/13/2010 46304 ELEC TROCARDIOGRAM, TRACING JUANITO PHELAN, [facility] 11/13/2010 69129 POOJA GENCY DEPT VISIT JUANITO PHELAN, [facility] 11/13/2010 G0431 DRUG SCREEN SINGLE CLASS JUANITO PHELAN, [facility] 11/13/2010 20021 ELEC TROCARDIOGRAM REPORT DWAINE , JOANNA Summers 11/13/2010 23515 ROUT INE VENIPUNCTURE JUANITO PHELAN, [facility] 11/23/2010 21372 COMP REHEN METABOLIC PANEL JUANITO PHELAN, [facility] 11/23/2010 07237 NATR IURETIC PEPTIDE JUANITO PHELAN, [facility] 11/23/2010 57861 COMP LETE CBC W/AUTO DIFF WBC JUANITO PHELAN, [facility] 11/23/2010 60675 CULT URE, BACTERIA, OTHER JUANIOT PHELAN [facility] 11/29/2010 05660 CULT URE AEROBIC IDENTIFY JUANITO PHELAN, [facility] 11/29/2010 24985 MICR OBE SUSCEPTIBLE, DAVID JUANITO PHELAN, [facility] 11/29/2010 18695 SMEA R, GRAM STAIN JUANITO PHELAN, [facility] 11/29/2010 06188 CHES T X-RAY JUANITO PHELAN [facility] 12/06/2010 17938 COMP REHEN METABOLIC PANEL JUANITO PHELAN, [facility] 12/06/2010 87057 URIN ALYSIS, AUTO W/SCOPE JUANITO PHELAN [facility] 12/06/2010 32185 ASSA Y OF AMYLASE JUANITO PHELAN, [facility] 12/06/2010 20162 ASSA Y OF LIPASE JUANITO PHELAN, [facility] 12/06/2010 10063 BL S MEAR W/DIFF WBC COUNT JUANITO PHELAN [facility] 12/06/2010 32209 COMP LETE CBC, AUTOMATED JUANITO PHELAN, [facility] 12/06/2010 62590 HYDR ATE IV INFUSION, ADD-ON JUANITO PHEALN, [facility] 12/06/2010 54684 THER /PROPH/DIAG INJ, IV PUSH JUANITO PHELAN, [facility] 12/06/2010 18653 TX/P RO/DX INJ NEW DRUG ADDON JUANITO PHELAN, [facility] 12/06/2010 G0378 HOSP ITAL OBSERVATION PER HR JUANITO PHELAN [facility] C 12/06/2010 J2550 PROM ETHAZINE HCL INJECTION JUANITO PHELAN [facility] 12/06/2010 63873 ROUT INE VENIPUNCTURE JUANITO PHELAN [facility] 12/07/2010 83750 COMP REHEN METABOLIC PANEL JUANITO PHELAN [facility] 12/07/2010 49099 NATR IURETIC PEPTIDE JUANITO PHELAN [facility] 12/07/2010 22005 BL S MEAR W/DIFF WBC COUNT JUANITO PHELAN [facility] C 12/07/2010 88789 COMP LETE CBC, AUTOMATED JUANITO PHELAN [facility] C 12/07/2010 32785 TTE W/DOPPLER, COMPLETE JUANITO PHELAN [facility] C 12/07/2010 64313 HYDR ATE IV INFUSION, ADD-ON JUANITO PHELAN KRISTIN C 12/07/2010 74950 ROUT INE VENIPUNCTURE JUANITO PHELAN [facility] C 12/08/2010 55327 META BOLIC PANEL TOTAL CA JUANITO PHELAN [facility] C 12/08/2010 89264 HYDR ATE IV INFUSION, ADD-ON JUANITO PHELAN K[facility]STIN C 12/08/2010 67126 ROUT INE VENIPUNCTURE JUANITO PHELAN [facility] C 12/28/2010 67028 COMP REHEN METABOLIC PANEL JUANITO PHELAN [facility] C 12/28/2010 41463 ASSA Y OF MAGNESIUM JUANITO PHELAN [facility] C 12/28/2010 13033 COMP LETE CBC W/AUTO DIFF WBC JUANITO PHELAN [facility] 12/28/2010 46178 ROUT INE VENIPUNCTURE JUANITO PHELAN [facility] 01/26/2011 90414 COMP REHEN METABOLIC PANEL JUANITO PHELAN [facility] C 01/26/2011 35605 COMP LETE CBC W/AUTO DIFF WBC JUANITO PHELAN [facility] C 01/26/2011 48025 ROUT INE VENIPUNCTURE JUANITO PHELAN [facility] C 02/05/2011 89020 COMP REHEN METABOLIC PANEL JUANITO PHELAN [facility] C 02/05/2011 71237 URIN ALYSIS, AUTO W/SCOPE JUANITO PHELAN [facility] C 02/05/2011 06609 NATR IURETIC PEPTIDE JUANITO PHELAN [facility] 02/05/2011 75474 COMP LETE CBC W/AUTO DIFF WBC JUANITO PHELAN [facility] C 02/05/2011 78344 URIN E CULTURE/COLONY COUNT JUANITO PHELAN [facility] 02/05/2011 36701 THER /PROPH/DIAG INJ, IV PUSH JUANITO PHELAN [facility] 02/05/2011 18634 POOJA GENCY DEPT VISIT JUANITO PHELAN [facility] 02/05/2011 G0378 HOSP ITAL OBSERVATION PER HR JUANITO PHELAN [facility] 02/05/2011 G0431 DRUG SCREEN SINGLE CLASS JUANITO PHELAN [facility] 02/05/2011 J0696 CEFT RIAXONE SODIUM INJECTION JUANITO PHELAN [facility] 02/05/2011 J1940 FURO SEMIDE INJ JUANITO PHELAN [facility] 02/05/2011 44755 CULT URE SCREEN ONLY JUANITO PHELAN [facility] 02/06/2011 57131 TX/P RO/DX INJ NEW DRUG MICA PLATE LAYER JUANITO PHELAN [facility] 02/06/2011 J1940 FURO SEMIDE INJ JUANITO PHELAN [facility] 02/06/2011 85394 ROUT INE VENIPUNCTURE JUANITO PHELAN [facility] 02/07/2011 37224 COMP REHEN METABOLIC PANEL JUANITO PHELAN [facility] 02/07/2011 39805 ROUT INE VENIPUNCTURE JUANITO PHELAN [facility] 03/21/2011 87571 CHES T X-RAY JUANITO PHELAN [facility] 03/21/2011 39053 COMP REHEN METABOLIC PANEL JUANITO PHELAN [facility] 03/21/2011 68371 URIN ALYSIS, AUTO W/SCOPE JUANITO PHELAN [facility] 03/21/2011 50019 URIN ALYSIS NONAUTO W/O SCOPE JUANITO PHELAN [facility] 03/21/2011 86723 COMP LETE CBC W/AUTO DIFF WBC JUANITO PHELAN [facility] 03/21/2011 05132 URIN E CULTURE/COLONY COUNT JUANITO PHELAN [facility] 03/21/2011 40579 URIN E BACTERIA CULTURE JUANITO PHELAN [facility] 03/21/2011 64669 CULT URE TYPE, IMMUNOLOGIC JUANITO PHELAN [facility] 03/21/2011 87658 MICR OBE SUSCEPTIBLE, DAVID JUANITO PHELAN [facility] 03/21/2011 93119 HYDR ATE IV INFUSION, ADD-ON JUANITO PHELAN, [facility] 03/21/2011 47425 THER /PROPH/DIAG INJ, SC/IM JUANITO PHELAN, [facility] 03/21/2011 90064 THER /PROPH/DIAG INJ, IV PUSH JUANITO PHELAN, [facility] 03/21/2011 49473 TX/P RO/DX INJ NEW DRUG ANDRES SOLOMON MD, [facility] 03/21/2011 72353 POOJA GENCY DEPT VISIT JUANITO HPELAN, [facility] 03/21/2011 C9113 INJ PANTOPRAZOLE SODIUM, VIA JUANITO PHELAN, [facility] 03/21/2011 G0378 HOSP ITAL OBSERVATION PER HR JUANITO PHELAN, [facility] 03/21/2011 G0431 DRUG SCREEN SINGLE CLASS JUANITO PHELAN, [facility] 03/21/2011 J2550 PROM ETHAZINE HCL INJECTION JUANITO PHELAN, [facility] 03/21/2011 A0425 GROU ND OLINDA SOLOMON MD, [facility] 03/21/2011 A0429 BLS EMERGENCY JUANITO PHELAN, [facility] 03/21/2011 16596 ROUT INE VENIPUNCTURE JUANITO PHELAN, [facility] 03/22/2011 98672 COMP REHEN METABOLIC PANEL JUANITO PHELAN, [facility] 03/22/2011 84694 HYDR ATE IV INFUSION, ADD-ON JUANITO PHELAN, [facility] 03/22/2011 93367 THER /PROPH/DIAG INJ, SC/IM JUANITO PHELAN [facility] 03/22/2011 63723 TX/P RO/DX INJ NEW DRUG KAE SOLOMON MD, [facility] 03/22/2011 J2550 PROM ETHAZINE HCL INJECTION JUANITO PHELAN, [facility] 03/22/2011 J3411 THIA MINE HCL 100 MG JUANITO PHELAN, [facility] 03/22/2011 42107 ROUT INE VENIPUNCTURE JUANITO PHELAN, [facility] 03/23/2011 31779 COMP REHEN METABOLIC PANEL JUANITO PHELAN, [facility] 03/23/2011 57092 HYDR ATE IV INFUSION, ADD-ON JUANITO PHELAN, [facility] 03/23/2011 83025 THER /PROPH/DIAG INJ, SC/IM JUANITO PHELAN, [facility] 03/23/2011 66660 TX/P RO/DX INJ NEW DRUG ANDRES SOLOMON MD, [facility] 03/23/2011 [id number] ATIV AN INJECTION JUANITO PHELAN, [facility] 03/23/2011 84429 OFFI CE/OUTPATIENT VISIT, MATTY DECKER MD, [facility] R 05/01/2011 05763 THER /PROPH/DIAG INJ, IV PUSH JUANITO PHELAN, [facility] 05/06/2011 52296 TX/P RO/DX INJ NEW DRUG ANDRES SOLOMON MD, [facility] 05/06/2011 20557 POOJA GENCY DEPT VISIT JUANITO PHELAN, [facility] 05/06/2011 J1885 KETO ROLAC TROMETHAMINE INJ JUANITO PHELAN, [facility] 05/06/2011 J2550 PROM ETHAZINE HCL INJECTION JUANITO PHELAN, [facility]STIN C 05/06/2011 A0425 GROU ND OLINDA HARRINGTON MD, FREDY Mandeep 05/06/2011 A0427 ALS1 EMERGENCY LEN PHELAN, FREDY Mandeep 05/06/2011 66890 [facility] GENCY DEPT VISIT LEN PHELAN, [facility] 05/06/2011 84587 ROUT INE VENIPUNCTURE JUANITO PHELAN, KRISTIN C 05/07/2011 04606 COMP REHEN METABOLIC PANEL JUANITO PHELAN, KRISTIN C 05/07/2011 79222 COMP LETE CBC W/AUTO DIFF WBC JUANITO PHELAN, KRISTIN C 05/07/2011 35759 THER /PROPH/DIAG INJ, IV PUSH JUANITO PHELAN, KRISTIN C 05/07/2011 20232 [facility] GENCY DEPT VISIT JUANITO PHELAN, KRISTIN C 05/07/2011 [id number] KETO ROLAC TROMETHAMINE INJ JUANITO PHELAN, KRISTIN C 05/07/2011 A0425 GROU ND OLINDA SOLOMON MD, KRISTIN C 05/07/2011 A0427 ALS1 EMERGENCY JUANITO PHELAN, KRISTIN C 05/07/2011 90522 [facility] GENCY DEPT VISIT JUANITO PHELAN, KRISTIN C 05/20/2011 A0425 GROU ND ESTEFANIA WHITTINGTON DO 05/20/2011 A0427 ALS1 EMERGENCY ESTEFANIA CUETO DO 05/20/2011 64367 [facility] GENCY DEPT VISIT ESTEFANIA CUETO DO 05/20/2011 75548 ROUT INE VENIPUNCTURE TEX SOLOMON MDWALDO C 05/21/2011 53363 INSE RT TEMP BLADDER CATH JUANITO PHELAN KRISTIN Burke 05/21/[address] H EAD/BRAIN W/O TEX WILSON MDWALDO Burke 05/21/2011 92744 CHES T X-RAY JUANITO PHELAN KRISTIN Burke 05/21/[address] N PRAFUL SPINE W/O ANA SOLOMON MD KRISTIN C 05/21/2011 21358 COMP REHEN METABOLIC PANEL TEX SOLOMON MDWALDO C 05/21/2011 53069 URIN ALYSIS, AUTO W/SCOPE JUANITO PHELAN KRISTIN C 05/21/2011 58170 ASSA Y OF ETHANOL JUANITO PHELAN [facility] 05/21/2011 19485 ASSA Y OF CK (CPK) JUANITO PHELAN KRISTIN C 05/21/2011 33359 CREA CATHY, MB FRACTION JUANITO PHELAN KRISTIN C 05/21/2011 29646 NATR IURETIC PEPTIDE JUANITO PHELAN KRISTIN C 05/21/2011 59321 ASSA Y OF TROPONIN, QUANT JUANITO PHELAN KRISTIN C 05/21/2011 17849 COMP LETE CBC W/AUTO DIFF WBC JUANITO PHELAN KRISTIN C 05/21/2011 87249 ELEC TROCARDIOGRAM, TRACING JUANITO PHELAN KRISTIN C 05/21/2011 78561 HYDR ATION IV INFUSION, INIT JUANITO PHELAN KRISTIN C 05/21/2011 95280 HYDR ATE IV INFUSION, ADD-ON JUANITO PHELAN KRISTIN C 05/21/2011 G0431 DRUG SCREEN SINGLE CLASS JUANITO PHELAN KRISTIN Burke 05/21/2011 04203 ELEC TROCARDIOGRAM REPORT JOANNA ISIDRO MD 05/21/2011 59546 ROUT INE VENIPUNCTURE JUANITO PHELAN KRISTIN C 05/29/2011 88537 X-RA Y EXAM OF LOWER SPINE JUANITO PHELAN KRISTIN C 05/29/2011 91771 X-RA Y EXAM OF PELVIS JUANITO PHELAN KRISTIN C 05/29/2011 90044 COMP REHEN METABOLIC PANEL JUANITO PHELAN KRISTIN 05/29/2011 10211 COMP LETE CBC W/AUTO DIFF WBC JUANITO PHELAN KRISTIN C 05/29/2011 57189 MRI LUMBAR SPINE W/O & W/DYE JUANITO PHELAN KRISTIN C 05/31/[address] SPINE L/S (CD) JUANITO HPELAN KRISTIN C 06/28/2011 01547 FLUO ROGUIDE FOR SPINE INJECT TEX SOLOMON MDWALDO C 06/28/2011 J1040 METH LPREDNISOLONE ACETATE JUANITO PHELAN KRISTIN C 06/28/2011 Q9961 HOCM 250-299MG/ML IODINE,1ML JUANITO PHELAN KRISTIN C 06/28/[address] SPINE L/S (CD) SHIRAZ SCHWARTZ CRNA 06/28/2011 58260 ROUT INE VENIPUNCTURE JUANITO PHELAN [facility] 07/03/2011 83884 COMP REHEN METABOLIC PANEL JUANITO PHELAN KRISTIN C 07/03/2011 97404 CHAUNCEY MIN B-12 JUANITO PHELAN [facility] 07/03/2011 41616 ASSA Y OF BLOOD/URIC ACID JUANITO PHELAN [facility] 07/03/2011 37351 COMP LETE CBC W/AUTO DIFF WBC JUANITO PHELAN KRISTIN C 07/03/[address] SPINE L/S (CD) JUANITO PHELAN [facility] 07/12/2011 26393 FLUO ROGUIDE FOR SPINE INJECT TEX SOLOMON MDWALDO C 07/12/2011 J1040 METH LPREDNISOLONE ACETATE JUANITO PHELAN KRISTIN C 07/12/2011 Q9961 HOCM 250-299MG/ML IODINE,1ML JUANITO PHELAN [facility] 07/12/[address] SPINE L/S (CD) ABBIE RINCON 07/12/[address] SPINE L/S (CD) JUANITO PHLEAN KRISTIN C 07/26/2011 51069 FLUO ROGUIDE FOR SPINE INJECT JUANITO PHELAN [facility] 07/26/2011 J1040 METH LPREDNISOLONE ACETATE JUANITO PHELAN KRISTIN C 07/26/2011 Q9961 HOCM 250-299MG/ML IODINE,1ML JUANITO PHELAN KRISTIN C 07/26/[address] SPINE L/S (CD) SHIRAZ SCHWARTZ CRNA L 07/26/2011 08299 ROUT INE VENIPUNCTURE JUANITO PHELAN, [facility] 08/20/2011 89926 COMP REHEN METABOLIC PANEL JUANITO PHELAN [facility] 08/20/2011 38784 COMP LETE CBC W/AUTO DIFF WBC JUANITO PHELAN KRISTIN C 08/20/2011 37965 META BOLIC PANEL TOTAL DAMARIS SOLOMON MD [facility] 08/28/2011 06099 THER /PROPH/DIAG IV INF, INIT JUANITO PHELAN [facility] 08/28/2011 J1580 GARA MYCIN GENTAMICIN INJ JUANITO PHELAN [facility] 08/28/2011 90632 THER /PROPH/DIAG IV INF ANDRES SOLOMON MD, [facility] 08/29/2011 J1580 GARA MYCIN GENTAMICIN INJ JUANITO PHELAN [facility] 08/29/2011 81420 ROUT INE VENIPUNCTURE JUANITO PHELAN [facility] 08/30/2011 75653 META BOLIC PANEL TOTAL DAMARIS SOLOMON MD, [facility] 08/30/2011 51760 ASSA Y OF GENTAMICIN JUANITO PHELAN [facility] 08/30/2011 54974 THER /PROPH/DIAG IV INF ANDRES SOLOMON MD [facility] 08/30/2011 98473 THER /PROPH/DIAG INJ, SC/IM JUANITO PHELAN KRISTIN C 08/30/2011 J1580 GARA MYCIN GENTAMICIN INJ JUANITO PHELAN KRISTIN C 08/30/2011 27156 THER /PROPH/DIAG INJ, SC/IM JUANITO PHELAN [facility] 08/31/2011 J1580 GARA MYCIN GENTAMICIN INJ JUANITO PHELAN KRISTIN C 08/31/2011 27880 THER /PROPH/DIAG INJ, SC/IM FREDY HARRINGTON MD 09/01/2011 [id number] GARA MYCIN GENTAMICIN INJ FREDY HARRINGTON MD 09/01/2011 70802 THER /PROPH/DIAG INJ, SC/IM JUANITO PHELAN KRISTIN Burke 09/02/2011 [id number] GARA MYCIN GENTAMICIN INJ JUANITO PHELAN [facility] 09/02/2011 25522 ROUT INE VENIPUNCTURE KRISTIN SOLOMON MD 09/03/2011 15417 COMP REHEN METABOLIC PANEL KRISTIN SOLOMON MD 09/03/2011 65336 ASSA Y OF GENTAMICIN KRISTIN SOLOMON MD 09/03/2011 71562 COMP LETE CBC W/AUTO DIFF WBC KRISTIN SOLOMON MD 09/03/2011 50487 THER /PROPH/DIAG INJ, SC/IM KRISTIN SOLOMON MD 09/03/2011 [id number] GARA MYCIN GENTAMICIN INJ KRISTIN SOLOMON MD 09/03/2011 67941 THER /PROPH/DIAG INJ, SC/IM KRISTIN SOLOMON MD 09/04/2011 [id number] GARA MYCIN GENTAMICIN INJ KRISTIN SOLOMON MD 09/04/2011 11004 REPA IR SUPERFICIAL WOUND(S) [facility] 09/30/2011 22485 IMMU NIZATION ADMIN [facility] 09/30/2011 34240 TD V ACCINE > 7, IM KRISTIN SOLOMON MD 09/30/2011 17726 [facility] GENCY DEPT VISIT [facility] 09/30/2011 19067 [facility]JA GENCY DEPT VISIT [facility] 09/30/2011 35482 URIN E CULTURE/COLONY COUNT KRISTIN SOLOMON MD 10/10/2011 95873 URIN E BACTERIA CULTURE KRISTIN SOLOMON MD 10/10/2011 10575 MICR OBE SUSCEPTIBLE, DAVID KRISTIN SOLOMON MD 10/10/2011 60720 REPA IR SUPERFICIAL WOUND(S) KRISTIN SOLOMON MD 10/13/2011 88846 THER /PROPH/DIAG INJ, SC/IM KRISTIN SOLOMON MD 10/13/2011 67079 POOJA GENCY DEPT VISIT KRISTIN SOLOMON MD 10/13/2011 J0696 CEFT RIAXONE SODIUM INJECTION KRISTIN SOLOMON MD 10/13/2011 71878 [facility] GENCY DEPT VISIT KRISTIN SOLOMON MD 10/13/2011 13011 ROUT INE VENIPUNCTURE KRISTIN SOLOMON MD 11/08/2011 81098 CHES T X-RAY KRISTIN SOLOMON MD 11/08/2011 24222 COMP REHEN METABOLIC PANEL JUANITO PHELAN, KRISTIN C 11/08/2011 88809 ASSA Y OF CK (CPK) JUANITO PHELAN, KRISTIN C 11/08/2011 00992 TRES MORGAN, PEDRO FRACTION JUANITO PHELAN, KRISTIN C 11/08/2011 98277 ASSA Y OF MAGNESIUM JUANITO PHELAN KRISTIN C 11/08/2011 48595 NATR IURETIC PEPTIDE JUANITO PHELAN, KRISTIN C 11/08/2011 46525 ASSA Y OF TROPONIN, QUANT JUANITO PHELAN, KRISTIN C 11/08/2011 94133 BL S MEAR W/DIFF WBC COUNT JUANITO PHELAN, KRISTIN C 11/08/2011 64268 COMP LETE CBC, AUTOMATED JUANITO PHELAN, KRISTIN C 11/08/2011 31829 ELEC TROCARDIOGRAM, TRACING JUANITO PHELAN, KRISTIN C 11/08/2011 34341 POOJA GENCY DEPT VISIT JUANITO PHELAN KRISTIN C 11/08/2011 A0425 GROU ND OLINDA SOLOMON MD, KRISTIN C 11/08/2011 A0427 ALS1 EMERGENCY JUANITO PHELAN, KRISTIN C 11/08/2011 78635 ELEC TROCARDIOGRAM REPORT JOANNA ISIDRO MD 11/08/2011 47748 POOJA GENCY DEPT VISIT JUANITO PHELAN, KRISTIN C 11/08/[address] SPINE L/S (CD) JUANITO PHELAN KRISTIN C 11/22/2011 20684 FLUO ROGUIDE FOR SPINE INJECT JUANITO PHELAN KRISTIN C 11/22/2011 J1040 METH LPREDNISOLONE ACETATE JUANITO PHELAN, KRISTIN C 11/22/2011 Q9961 HOCM 250-299MG/ML IODINE,1ML JUANITO PHELAN KRISTIN C 11/22/[address] SPINE L/S (CD) ABBIE RINCON 11/22/2011 18567 CULT URE AEROBIC IDENTIFY JUANITO PHELAN KRISTIN C 11/26/2011 10434 URIN E CULTURE/COLONY COUNT JUANITO PHELAN KRISTIN C 11/26/2011 20216 URIN E BACTERIA CULTURE JUANITO PHELAN KRISTIN C 11/26/2011 96500 MICR OBE SUSCEPTIBLE, DAVID JUANITO PHELAN, KRISTIN C 11/26/2011 19645 OFFI CE/OUTPATIENT VISIT, EST JERONIMO PHELAN, [place] R 11/27/2011 69883 ROUT INE VENIPUNCTURE JUANITO PHELAN KRISTIN C 12/03/2011 06914 COMP REHEN METABOLIC PANEL JUANITO PHELAN KRISTIN C 12/03/2011 66220 COMP LETE CBC W/AUTO DIFF WBC JUANITO PHELAN KRISTIN C 12/03/2011 21077 ROUT INE VENIPUNCTURE JUANITO PHELAN KRISTIN C 12/07/2011 38225 COMP REHEN METABOLIC PANEL JUANITO PHELAN KRISTIN C 12/07/2011 96876 COMP LETE CBC W/AUTO DIFF WBC JUANITO PHELAN KRISTIN C 12/07/2011 56624 HT M USCLE IMAGE SPECT, ADONIS SOLOMON MD KRISTIN C 12/14/2011 A9500 TC99 M SESTAMIBI JUANITO PHELAN KRISTIN C 12/14/2011 J2785 REGA DENOSON INJECTION JUANITO PHELAN KRISTIN C 12/14/2011 J7050 NS S OLUTION 250 CC INFUSION JUANITO PHELAN KRISTIN C 12/14/2011 67882 CARD IOVASCULAR STRESS TEST JUANITO PHELAN KRISTIN C 12/14/2011 39197 ROUT INE VENIPUNCTURE JUANITO PHELAN KRISTIN C 01/01/2012 43279 COMP REHEN METABOLIC PANEL JUANITO PHELAN KRISTIN C 01/01/2012 55343 COMP LETE CBC W/AUTO DIFF WBC JUANITO PHELAN KRISTIN C 01/01/2012 88060 ROUT INE VENIPUNCTURE JUANITO PHELAN KRISTIN C 01/16/2012 77523 CHES T X-RAY JUANITO PHELAN KRISTIN C 01/16/2012 69883 COMP REHEN METABOLIC PANEL JUANITO PHELAN KRISTIN C 01/16/2012 82256 ASSA Y OF CK (CPK) JUANITO PHELAN KRISTIN C 01/16/2012 85033 CREAna M MORGAN, PEDRO SOLOMON MD KRISTIN C 01/16/2012 19723 NATR IURETIC PEPTIDE JUANITO PHELAN KRISTIN C 01/16/2012 89498 ASSA Y OF TROPONIN, QUANT JUANITO PHELAN [facility] 01/16/2012 40968 COMP LETE CBC W/AUTO DIFF WBC [facility] 01/16/2012 43650 CULT URE, BACTERIA, OTHER JUANITO PHELAN [facility] 01/16/2012 58214 CULT URE SCREEN ONLY JUANITO PHELAN [facility] 01/16/2012 59717 CULT URE TYPE, IMMUNOLOGIC [facility] 01/16/2012 74552 MICR OBE SUSCEPTIBLE, DAVID JUANITO PHELAN [facility] 01/16/2012 77480 SMEA R, GRAM STAIN JUANITO PHELAN [facility] 01/16/2012 47463 ELEC TROCARDIOGRAM, TRACING JUANITO PHELAN [facility] 01/16/2012 47247 EVAL UATE PT USE OF INHALER JUANITO PHELAN [facility] 01/16/2012 33477 HYDR ATE IV INFUSION, ADD-ON TEX SOLOMON MD[facility] 01/16/2012 34433 THER /PROPH/DIAG INJ, IV PUSH JUANITO PHELAN [facility] 01/16/2012 85813 [facility] GENCY DEPT VISIT [facility] 01/16/2012 G0378 HOSP ITAL OBSERVATION PER HR [facility] 01/16/2012 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 JUANITO PHELAN [facility] 01/16/2012 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 JUANITO PHELAN [facility] 01/16/2012 J7611 ALBU TEROL NON-COMP CON [facility] 01/16/2012 75081 ELEC TROCARDIOGRAM REPORT DWAINE PHELAN, JOANNA L 01/16/2012 A0425 GROU ND FREDY MADRIGAL MD 01/16/2012 A0427 ALS1 EMERGENCY FREDY HARRINGTON MD 01/16/2012 19777 POOJA GENCY DEPT VISIT FREDY HARRINGTON MD 01/16/2012 23203 ROUT INE VENIPUNCTURE JUANITO PHELAN [facility] 01/17/2012 74384 COMP REHEN METABOLIC PANEL TEX SOLOMON MDW[facility] 01/17/2012 25460 ASSA Y OF CK (CPK) TEX SOLOMON MDW[facility] 01/17/2012 49219 PEDRO TRINH MD, KRISTIN C 01/17/2012 33207 NATR IURETIC PEPTIDE [facility] 01/17/2012 99643 ASSA Y OF TROPONIN, QUANT [facility] 01/17/2012 87992 COMP LETE CBC W/AUTO DIFF WBC RAMIRO SOLOMON MDO Burke 01/17/2012 48494 ELEC TROCARDIOGRAM, TRACING TEX SOLOMON [facility] 01/17/2012 67558 AIRW AY INHALATION TREATMENT [facility] 01/17/2012 69798 EVAL UATE PT USE OF INHALER [facility] 01/17/2012 00709 HYDR ATE IV INFUSION, ADD-ON [facility] 01/17/2012 75228 TX/P RO/DX INJ NEW DRUG MICA PLATE LAYER [facility] 01/17/2012 A9270 Non- covered item or service [facility] 01/17/2012 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 [facility] 01/17/2012 J7611 ALBU TEROL NON-COMP CON [facility] 01/17/2012 67380 ELEC TROCARDIOGRAM REPORT DWAINE PHELAN, JOANNA Summers 01/17/2012 56622 ROUT INE VENIPUNCTURE RAMIRO SOLOMON MDO Burke 01/18/2012 72497 COMP REHEN METABOLIC PANEL KRISTIN SOLOMON MD 01/18/2012 54654 COMP LETE CBC W/AUTO DIFF WBC KRISTIN SOLOMON MD 01/18/2012 87708 EVAL UATE PT USE OF INHALER KRISTIN SOLOMON MD 01/18/2012 A9270 Non- covered item or service [facility] 01/18/2012 G0008 INFL UENZA VIRUS VACCINE TEX SOLOMON MDW[facility]DO Burke 01/18/2012 Q2037 FLUV IRIN VACC, 3 YRS & >, IM [facility] 01/18/2012 65667 ROUT INE VENIPUNCTURE KRISTIN SOLOMON MD 01/26/2012 94966 INSE RT TEMP BLADDER CATH KRISTIN SOLOMON MD 01/26/2012 16781 COMP REHEN METABOLIC PANEL KRISTIN SOLOMON MD 01/26/2012 61933 URIN ALYSIS, AUTO W/SCOPE TEX SOLOMON MDWALDO Burke 01/26/2012 44299 BL S MEAR W/DIFF WBC COUNT TEX SOLOMON MDW[facility] Burke 01/26/2012 30101 COMP LETE CBC, AUTOMATED [facility] 01/26/2012 38685 POOJA GENCY DEPT VISIT TEX SOLOMON MDWALDO Burke 01/26/2012 G0431 DRUG SCREEN SINGLE CLASS TEX SOLOMON MDWALDO Burke 01/26/2012 A0425 GROU ND MILEAGE [facility] 01/26/2012 A0429 BLS EMERGENCY [facility] 01/26/2012 59889 POOJA GENCY DEPT VISIT TEX SOLOMON MDWALDO Burke 01/26/2012 37225 ELEC TROCARDIOGRAM REPORT DWAINE PHELAN, JOANNA Summers 01/27/[address] H EAD/BRAIN W/O DYE TEX SOLOMON MDWALDJudy Turk 01/27/2012 86918 CHES T X-RAY TEX SOLOMON MDWALDO Burke 01/27/2012 44837 X-RA Y EXAM OF PELVIS TEX SOLOMON MD[facility] Burke 01/27/2012 04408 X-RA Y EXAM OF HIP TEX SOLOMON MDW[facility] Burke 01/27/2012 45.73 RIGH T HEMICOLECTOMY Hugo Estes MD 01/29/2012 45.73 RIGH T HEMICOLECTOMY Hugo Estes MD 01/30/2012 96.72 CONT MECH VENT->95 HOURS Hugo Estes MD 02/07/2012 43.19 LORETTA ROSTOMY NEC Hugo Estes MD 02/09/2012 45.73 RIGH T HEMICOLECTOMY Hugo Estes MD 02/09/2012 46.20 ILEO STOMY NOS Hugo Estes MD 02/09/2012 45.14 CLSD (ENDO) SM INTEST BX Hugo Estes MD 02/12/2012 25305 ROUT INE VENIPUNCTURE KRISTIN SOLOMON MD 04/07/2012 88836 COMP REHEN METABOLIC PANEL KRISTIN SOLOMON MD 04/07/2012 46461 BL S MEAR W/DIFF WBC COUNT KRISTIN SOLOMON MD 04/07/2012 99785 COMP LETE CBC, AUTOMATED JUANITO PHELAN, KRISTIN C 04/07/2012 38743 POOJA GENCY DEPT VISIT JUANITO PHELAN, KRISTIN C 04/07/2012 A0425 GROU ND OLINDA SOLOMON MD, KRISTIN C 04/07/2012 A0429 BLS EMERGENCY JUANITO PHELAN, KRISTIN C 04/07/2012 81239 POOJA GENCY DEPT VISIT JUANITO PHELAN, KRISTIN C 04/07/2012 03720 COMP REHEN METABOLIC PANEL JUANITO PHELAN, KRISTIN C 04/21/2012 18722 COMP LETE CBC W/AUTO DIFF WBC JUANITO PHELAN, KRISTIN C 04/21/2012 60499 URIN ALYSIS, AUTO W/SCOPE JUANITO PHELAN, KRISTIN C 04/25/2012 18854 COMP REHEN METABOLIC PANEL JUANITO PHELAN, KRISTIN C 04/28/2012 34204 COMP LETE CBC W/AUTO DIFF WBC JUANITO PHELAN, KRISTIN C 04/28/2012 90615 COMP REHEN METABOLIC PANEL JUANITO PHELAN, KRISTIN C 05/05/2012 59897 COMP LETE CBC W/AUTO DIFF WBC JUANITO PHELAN KRISTIN C 05/05/2012 13546 EXTR EMITY STUDY JUANITO PHELAN, KRISTIN C 05/12/2012 95763 COMP REHEN METABOLIC PANEL JUANITO PHELAN, KRISTIN C 05/20/2012 67319 COMP LETE CBC W/AUTO DIFF WBC JUANITO PHELAN KRISTIN C 05/20/2012 26036 PROT HROMBIN TIME JUANITO PHELAN KRISTIN C 05/20/2012 52386 ROUT INE VENIPUNCTURE JUANITO PHELAN KRISTIN C 05/29/2012 46219 COMP REHEN METABOLIC PANEL JUANITO PHELAN KRISTIN C 05/29/2012 31974 COMP LETE CBC W/AUTO DIFF WBC JUANITO PHELAN KRISTIN C 05/29/2012 87924 PROT HROMBIN TIME JUANITO PHELAN KRISTIN C 05/29/2012 13223 PROT HROMBIN TIME JUANITO PHELAN KRISTIN C 06/09/2012 15212 ROUT INE VENIPUNCTURE JUANITO PHELAN KRISTIN C 06/10/2012 81410 META BOLIC PANEL TOTAL CA JUANITO PHELAN KRISTIN C 06/10/2012 26568 ROUT INE VENIPUNCTURE JUANITO PHELAN KRISTIN C 07/15/2012 25283 COMP REHEN METABOLIC PANEL JUANITO PHELAN KRISTIN C 07/15/2012 25132 COMP LETE CBC W/AUTO DIFF WBC JUANITO PHELAN, KRISTIN C 07/15/2012 58846 PROT HROMBIN TIME JUANITO PHELAN KRISTIN C 07/15/2012 95830 PROT HROMBIN TIME JUANITO PHELAN, KRISTIN C 07/25/2012 24989 ROUT INE VENIPUNCTURE JUANITO PHELAN KRISTIN C 07/29/2012 55206 COMP REHEN METABOLIC PANEL JUANITO PHELAN KRISTIN C 07/29/2012 46440 COMP LETE CBC W/AUTO DIFF WBC JUANITO PHELAN KRISTIN C 07/29/2012 42802 PROT HROMBIN TIME JUANITO PHELAN KRISTIN C 07/29/2012 A0425 GROU ND MILEAGE LEN PHELAN, FREDY Mandeep 07/30/2012 A0429 BLS EMERGENCY LEN PHELAN, FREDY Mandeep 07/30/2012 17735 POOJA GENCY DEPT VISIT BRIAN HARRINGTON MDFER Mandeep 07/30/2012 15662 POOJA GENCY DEPT VISIT JUANITO PHELAN KRISTIN C 07/30/2012 29866 PROT HROMBIN TIME JUANITO PHELAN KRISTIN C 08/06/2012 89006 PROT HROMBIN TIME JUANITO PHELAN KRISTIN C 08/26/2012 96734 ROUT INE VENIPUNCTURE JUANITO PHELAN KRISTIN C 09/17/2012 51152 COMP REHEN METABOLIC PANEL JUANITO PHELAN KRISTIN C 09/17/2012 37063 ASSA Y OF MAGNESIUM JUANITO PHELAN KRISTIN C 09/17/2012 07887 COMP LETE CBC W/AUTO DIFF WBC JUANITO PHELAN KRISTIN C 09/17/2012 23370 PROT HROMBIN TIME JUANITO PHELAN KRISTIN C 09/17/2012 21831 ASSA Y OF MAGNESIUM JUANITO PHELAN KRISTIN C 09/24/2012 55735 ROUT INE VENIPUNCTURE JUANITO PHELAN KRISTIN C 10/08/2012 69494 COMP REHEN METABOLIC PANEL JUANITO PHELAN KRISTIN C 10/08/2012 29189 ASSA Y OF MAGNESIUM JUANITO PHELAN KRISTIN C 10/08/2012 69571 COMP LETE CBC W/AUTO DIFF WBC JUANITO PHELAN KRISTIN C 10/08/2012 10037 ROUT INE VENIPUNCTURE JUANITO PHELAN [facility] 10/29/2012 57196 COMP REHEN METABOLIC PANEL JUANITO PHELAN [facility] 10/29/2012 15616 ASSA Y OF MAGNESIUM JUANITO PHELAN KRISTIN C 10/29/2012 22818 ASSA Y THYROID STIM HORMONE JUANITO PHELAN [facility] 10/29/2012 02926 COMP LETE CBC W/AUTO DIFF WBC JUANITO PHELAN [facility] 10/29/2012 59696 PROT HROMBIN TIME JUANITO PHELAN [facility] 10/29/2012 13482 COMP REHEN METABOLIC PANEL JUANITO PHELAN [facility] 11/07/2012 38726 PROT HROMBIN TIME JUANITO PHELAN [facility] 11/07/2012 08356 PROT HROMBIN TIME JUANITO PHELAN [facility] 12/03/2012 93467 PROT HROMBIN TIME JUANITO PHELAN [facility] 12/30/2012 01958 CULT URE, BACTERIA, OTHER JUANITO PHELAN [facility] 01/14/2013 86741 CULT URE AEROBIC IDENTIFY JUANITO PHELAN [facility] 01/14/2013 60957 MICR OBE SUSCEPTIBLE, DAVID JUANITO PHELAN [facility] 01/14/2013 48402 SMEA R, GRAM STAIN JUANITO PHELAN [facility] 01/14/2013 74306 ASSA Y OF CREATININE JUANITO PHELAN KRISTIN C 01/23/2013 91562 ASSA Y OF UREA NITROGEN JUANITO PHELAN [facility] 01/23/2013 81964 COMP REHEN METABOLIC PANEL JUANITO PHELAN [facility] 01/26/2013 83145 COMP LETE CBC W/AUTO DIFF WBC JUANITO PHELAN KRISTIN C 01/26/2013 33898 PROT HROMBIN TIME JUANITO PHELAN KRISTIN C 01/26/2013 61409 ASSA Y OF CREATININE JUANITO PHELAN KRISTIN C 01/29/2013 13660 ASSA Y OF UREA NITROGEN JUANITO PHELAN KRISTIN C 01/29/2013 67460 ASSA Y OF CREATININE JUANITO PHELAN [facility] 02/02/2013 56047 ASSA Y OF UREA NITROGEN JUANITO PHELAN [facility] 02/02/2013 68296 ASSA Y OF CREATININE JUANITO PHELAN [facility] 02/06/2013 33582 [facility] 33743 COMP REHEN METABOLIC PANEL JUANITO PHEALN [facility] 02/10/2013 76014 CULT URE, BACTERIA, OTHER JUANITO PHELAN [facility] 02/11/2013 54636 CULT URE AEROBIC IDENTIFY JUANITO PHELAN [facility] 02/11/2013 72489 MICR OBE SUSCEPTIBLE, DAVID [facility] 02/11/2013 38939 SMEA R, GRAM STAIN JUANITO PHELAN [facility] 02/11/2013 54140 ASSA Y OF CREATININE JUANITO PHELAN [facility] 02/12/2013 36538 ASSA Y OF UREA NITROGEN JUANITO PHELAN [facility] 02/12/2013 89653 ASSA Y OF CREATININE JUANITO PHELAN [facility] 02/16/2013 79987 ASSA Y OF [facility]REA [facility]OGEN [facility]/16[facility]2013 97502 ASSA Y OF CREATININE JUANITO PHELAN [facility] 02/19/2013 37062 ASSA Y OF UREA NITROGEN JUANITO PHELAN [facility] 02/19/2013 98173 PROT HROMBIN TIME JUANITO PHELAN [facility] 02/19/2013 00765 PROT [facility]OMBIN TIME [facility] 02/20/2013 01274 PROT HROMBIN TIME [facility] 02/21/2013 42509 PROT [facility]OMBIN TIME [facility] 02/22/2013 80981 ASSA Y OF CREATININE JUANITO PHELAN [facility] 02/23/2013 70586 ASSA Y OF UREA NITROGEN JUANITO PHELAN [facility] 02/23/2013 97557 PROT HROMBIN TIME [facility] 02/23/2013 31358 CULT URE, BACTERIA, OTHER JUANITO PHELAN [facility] 02/25/2013 33110 CULT URE AEROBIC IDENTIFY JUANITO PHELAN [facility] 02/25/2013 68877 MICR OBE SUSCEPTIBLE, DAVID JUANITO PHELAN KRISTIN C 02/25/2013 82409 SMEA R, GRAM STAIN JUANITO PHELAN KRISTIN C 02/25/2013 13164 PROT HROMBIN TIME JUANITO PHELAN KRISTIN C 02/27/2013 95019 ASSA Y OF CREATININE JUAINTO PHELAN KRISTIN C 03/02/2013 45559 ASSA Y OF UREA NITROGEN JUANITO PHELAN KRISTIN C 03/02/2013 52440 PROT HROMBIN TIME JUANITO PHELAN KRISTIN C 03/10/2013 92980 PROT HROMBIN TIME JUANITO PHELAN KRISTIN C 03/31/2013 88791 CULT URE, BACTERIA, OTHER JUANITO PHELAN KRISTIN C 04/27/2013 22516 CULT URE AEROBIC IDENTIFY JUANITO PHELAN KRISTIN C 04/27/2013 43110 MICR OBE SUSCEPTIBLE, DAVID JUANITO PHELAN KRISTIN C 04/27/2013 89077 SMEA R, GRAM STAIN JUANITO PHELAN KRISTIN C 04/27/2013 14635 ROUT INE VENIPUNCTURE JUANITO PHELAN KRISTIN C 05/05/2013 96446 PROT HROMBIN TIME JUANITO PHELAN KRISTIN C 05/05/2013 56124 ROUT INE VENIPUNCTURE JUANITO PHELAN KRISTIN C 05/25/2013 64969 COMP REHEN METABOLIC PANEL JUANITO PHELAN KRISTIN C 05/25/2013 61448 ASSA Y OF MAGNESIUM JUANITO PHELAN KRISTIN C 05/25/2013 48111 COMP LETE CBC W/AUTO DIFF WBC JUANITO PHELAN KRISTIN C 05/25/2013 35712 PROT HROMBIN TIME JUANITO PHELAN KRISTIN C 05/25/2013 33529 PROT HROMBIN TIME JUANITO PHELAN KRISTIN C 06/02/2013 70223 COMP REHEN METABOLIC PANEL JUANITO PHELAN KRISTIN C 06/09/2013 94545 COMP LETE CBC W/AUTO DIFF WBC JUANITO PHELAN KRISTIN C 06/09/2013 82993 PROT HROMBIN TIME JUANITO PHELAN KRISTIN C 06/09/2013 75196 ROUT INE VENIPUNCTURE JUANITO PHELAN KRISTIN C 07/02/2013 02465 COMP REHEN METABOLIC PANEL JUANITO PHELAN KRISTIN C 07/02/2013 88551 NATR IURETIC PEPTIDE JUANITO PHELAN KRISTIN C 07/02/2013 13572 COMP LETE CBC W/AUTO DIFF WBC JUANITO PHELAN KRISTIN C 07/02/2013 73056 PROT HROMBIN TIME JUANITO PHELAN KRISTIN C 07/02/2013 42541 ROUT INE VENIPUNCTURE JUANITO PHELAN KRISTIN C 07/22/2013 71902 COMP REHEN METABOLIC PANEL JUANITO PHELAN KRISTIN C 07/22/2013 81548 COMP LETE CBC W/AUTO DIFF WBC JUANITO PHELAN KRISTIN C 07/22/2013 85287 PROT HROMBIN TIME JUANITO PHELAN RKISTIN C 07/22/2013 39038 ROUT INE VENIPUNCTURE JUANITO PHELAN KRISTIN C 10/07/2013 91069 COMP REHEN METABOLIC PANEL JUANITO PHELAN KRISTIN C 10/07/2013 36905 COMP LETE CBC W/AUTO DIFF WBC JUANITO PHELAN KRISTIN C 10/07/2013 05002 COMP REHEN METABOLIC PANEL JUANITO PHELAN KRISTIN C 10/19/2013 13556 URIN ALYSIS, AUTO W/SCOPE JUANITO PHELAN, KRISTIN C 10/19/2013 22351 ASSA Y OF AMYLASE JUANITO PHELAN KRISTIN C 10/19/2013 20280 ASSA Y OF LIPASE JUANITO PHELAN, KRISTIN C 10/19/2013 32652 COMP LETE CBC W/AUTO DIFF WBC JUANITO PHELAN KRISTIN C 10/19/2013 14883 SHAWANDA COBACTER PYLORI JUANITO PHELAN KRISTIN C 10/19/2013 54457 CULT URE AEROBIC IDENTIFY JUANITO PHELAN, KRISTIN C 10/19/2013 20874 URIN E CULTURE/COLONY COUNT JUANITO PHELAN, KRISTIN C 10/19/2013 56727 MICR OBE SUSCEPTIBLE, DAVID JUANITO PHELAN, KRISTIN C 10/19/2013 06551 THER /PROPH/DIAG INJ, IV PUSH JUANITO PHELAN, KRISTIN C 10/19/2013 96776 TX/P RO/DX INJ NEW DRUG ANDRES SOLOMON MD, KRISTIN C 10/19/2013 36734 [facility] GENCY DEPT VISIT JUANITO PHELAN KRISTIN C 10/19/2013 A9270 NON- COVERED ITEM [facility]2013 G0434 DRUG SCREEN MULTI DRUG CLASS JUANITO PHELAN, [facility] 10/19/2013 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 LEN PHELAN, [facility] 10/19/2013 J2550 PROM ETHAZINE HCL INJECTION LEN PHELAN, [facility] 10/19/2013 J7030 INFU NEO, NS, 1000 CC LEN PHELAN, [facility] 10/19/2013 A0425 GROU ND MILEAGE LEN PHELAN, [facility] 10/19/2013 A0427 ALS1 EMERGENCY LEN PHELAN, [facility] 10/19/2013 71129 [facility] GENCY DEPT VISIT LEN PHELAN, [facility] 10/19/2013 54006 X-RA Y EXAM OF FOOT JUANITO PHELAN, [facility] 12/22/2013 79486 ROUT INE VENIPUNCTURE JUANITO PHELAN [facility] 02/25/2014 47441 COMP REHEN METABOLIC PANEL JUANITO PHELAN KRISTIN C 02/25/2014 28127 COMP LETE CBC W/AUTO DIFF WBC JUANITO PHELAN KRISTIN C 02/25/2014 45502 CHYL PNEUM, DNA, AMP PROBE JUANITO PHELAN KRISTIN C 02/25/2014 98607 M.PN EUMON, DNA, AMP PROBE JUANITO PHELAN, [facility] 02/25/2014 18972 RESP VIRUS 12-25 TARGETS JUANITO PHELAN, [facility] 02/25/[address] AGENT NOS, DNA, AMP JUANITO PHELAN KRISTIN C 02/25/2014 76971 ROUT INE VENIPUNCTURE JUANITO PHELAN KRISTIN C 09/09/2014 54724 CHES T X-RAY JUANITO PEHLAN KRISTIN C 09/09/2014 13803 COMP REHEN METABOLIC PANEL JUANITO PHELAN KRISTIN C 09/09/2014 15086 COMP LETE CBC W/AUTO DIFF WBC JUANITO PHELAN KRISTIN C 09/09/2014 60319 MYCO PLASMA ANTIBODY JUANITO PHELAN, KRISTIN C 09/09/2014 48925 ELEC TROCARDIOGRAM TRACING JUANITO PHELAN KRISTIN C 11/16/2014 61996 X-RA Y EXAM OF ABDOMEN JUANITO PHELAN KRISTIN C 02/11/2015 48658 ELEC TROCARDIOGRAM REPORT DWAINE PHELAN, JOANNA L 07/07/2015 15471 Offi ce or other outpatient visit for the evaluation and management of a new patient, which requires Cynthia Noriega 02/17/2016 67543 ALFREDO L FUNCTION PANEL JUAN MCCABE MD, GRACE Viramontes 02/23/2016 03090 ASSA Y OF FREE THYROXINE JUAN MCCABE MD, GRACE Viramontes 02/23/2016 G0103 PSA SCREENING JUAN MCCABE MD, GRACE Viramontes 02/23/2016 30662 URIN ALYSIS AUTO W/SCOPE JUAN MCCABE MD, GRACE Viramontes 02/28/2016 60859 MICR OALBUMIN SEMIQUANT JUAN MCCABE MD, GRACE Viramontes 02/28/2016 94149 ASSA Y OF URINE CREATININE JUAN MCCABE MD, GRACE Viramontes 02/28/2016 50013 Offi ce or other outpatient visit for the evaluation and management of a new patient, which requires Cynthia Noriega 03/07/2016 V2020 Visi on svcs frames purchases 08/29/2016 V2203 Lens sphcyl bifocal 4.00d/.1 08/29/2016 V2204 Lens sphcy bifocal 4.00d/2.1 08/29/2016 V2744 Tint photochromatic lens/es 08/29/2016 V2782 Lens , 1.54-1.65 p/1.60-1.79g 08/29/2016 [id number] IN SERTION OF ENDOTRACHEAL AIRWAY INTO TR 09/03/2018 [id number] RE SPIRATORY VENTILATION, 24- 96 CONSECUTI 09/03/2018 Results Test Result Range MRSA Nasal Screen - 04/07/12 17:17 MRSA Nasal Screen SMR Wound Culture - 04/08/12 13:21 Wound Culture SMR Wound Culture - 04/08/12 13:21 Wound Culture [facility] COMPLETE BLOOD COUNT - 04/10/12 06:26 Platelet 397 10^3u 142-424 MPV 9.4 FL 9.4-12.4 [place] # 1.00 10^3u 0.0-1.0 RBC 3.27 10^6u 4.04-6.13 [place] % 7.4 % 0-12 RDW 15.7 % [...] 353 10^3u 142-424 MPV 9.2 FL 9.4-12.4 [place] 8.0 RBC 3.18 10^6u 4.04-6.13 RDW 15.8 % 11.6-14.8 Seg 72.0 WBC 12.23 10^3u 4.60-10.20 Bands 3.0 MCV 91.5 FL 80.0-97.0 Eos 5.0 MCHC 30.9 G/DL 31.8-35.4 MCH 28.3 PG 27.0-31.2 Lymph 12.0 HGB 9.0 G/DL 12.2-18.1 HCT 29.1 % 37.7-53.7 COMPLETE BLOOD COUNT - 05/12/12 15:21 Platelet 356 10^3u 142-424 MPV 9.6 FL 9.4-12.4 [place] # 0.57 10^3u 0.0-1.0 RBC 4.28 10^6u 4.04-6.13 [place] % 6.1 % 0-12 RDW 16.3 % [...] 526 10^3u 142-424 MPV 10.3 FL 9.4-12.4 [place] # 0.76 10^3u 0.0-1.0 RBC 4.55 10^6u 4.04-6.13 [place] % 7.4 % 0-12 RDW 16.7 % [...] 423 10^3u 142-424 MPV 9.6 FL 9.4-12.4 [place] # 0.80 10^3u 0.0-1.0 RBC 4.04 10^6u 4.04-6.13 [place] % 7.6 % 0-12 RDW 17.2 % [...] 439 10^3u 142-424 MPV 11.0 FL 9.4-12.4 [place] # 0.61 10^3u 0.0-1.0 RBC 4.70 10^6u 4.04-6.13 [place] % 6.5 % 0-12 RDW 15.0 % [...] 399 10^3u 142-424 MPV 10.2 FL 9.4-12.4 [place] # 0.72 10^3u 0.0-1.0 RBC 4.17 10^6u 4.04-6.13 [place] % 6.7 % 0-12 RDW 14.9 % [...] 462 10^3u 142-424 MPV 10.2 FL 9.4-12.4 [place] # 0.77 10^3u 0.0-1.0 [place] 4.0 RBC 4.69 10^6u 4.04-6.13 [place] % 4.0 % 0-12 RDW 15.0 % [...] Urobilinogen 0.2 0.2-1.0 Urine RBC N0-2 Specific [place] 1.015 1.010-1.020 Urine WBC N0-2 Blood Negative Negative Color Yellow Yellow Bilirubin Negative Negative Blood Culture - 07/30/12 22:53 Blood Culture SMR Blood Culture - 07/30/12 22:59 Blood Culture SMR MRSA Nasal Screen - 07/31/12 02:04 MRSA Nasal Screen [facility] COMPLETE BLOOD COUNT - 07/31/12 05:50 Platelet 310 10^3u 142-424 MPV 10.1 FL 9.4-12.4 [place] # 0.83 10^3u 0.0-1.0 RBC 4.07 10^6u 4.04-6.13 [place] % 4.7 % 0-12 RDW 14.9 % [...] 263 10^3u 142-424 MPV 9.6 FL 9.4-12.4 [place] # 0.56 10^3u 0.0-1.0 RBC 3.39 10^6u 4.04-6.13 [place] % 5.3 % 0-12 RDW 15.0 % [...] 309 10^3u 142-424 MPV 10.4 FL 9.4-12.4 [place] # 0.54 10^3u 0.0-1.0 RBC 4.43 10^6u 4.04-6.13 [place] % 7.2 % 0-12 RDW 15.0 % [...] 316 10^3u 142-424 MPV 10.0 FL 9.4-12.4 [place] # 0.66 10^3u 0.0-1.0 RBC 4.41 10^6u 4.04-6.13 [place] % 6.5 % 0-12 RDW 14.5 % [...] 243 10^3u 142-424 MPV 10.0 FL 9.4-12.4 [place] # 0.58 10^3u 0.0-1.0 RBC 4.21 10^6u 4.04-6.13 [place] % 7.3 % 0-12 RDW 15.0 % [...] Calcium 9.8 MG/DL 8.4-10.2 BUN 22 MG/DL 7- Chloride 99 MMOLL 98-107 AST 31 U/L 15-46 ALT 33 U/L 7- Albumin 4.3 G/DL 3.5-5.0 A/G Ratio 1.4 [...] Calcium 10.4 MG/DL 8.4-10.2 BUN 25 MG/DL 7-21 Chloride 101 MMOLL 98-107 AST 22 U/L 15-46 ALT 30 U/L 7-56 Albumin 3.9 G/DL 3.5-5.0 A/G Ratio 1.4 RATIO 1.2-2.2 Bun/Creat 27.1 RATIO 7-25 Alk Phos 95 U/L 38-126 CO2 31 MMOLL 22-30 Glucose 90 MG/DL 65-110 Globulin 2.8 2.4-3.5 Creatinine 0.9 MG/DL 0.7-1.5 Protime - 11/07/12 06:27 INR 1.7 Protime 17.5 SEC 9.6-11.9 Protime - 12/03/12 06:47 INR 1.5 Protime 15.4 SEC 9.6-11.9 Protime - 12/30/12 10:15 INR 2.4 Protime 25.4 SEC 9.6-11.9 BUN - 01/23/13 06:46 BUN 32 MG/DL 7-21 Creatinine - 01/23/13 06:46 Creatinine 1.2 MG/DL 0.7-1.5 CMP - 01/26/13 06:36 Osmo Calculated 277 MOSM 261-280 Sodium 142 MMOLL 137-145 T. Protein 7.4 G/DL 6.3-8.2 Potassium 3.5 MMOLL 3.6-5.0 T Bili 0.5 MG/DL 0.2-1.3 Calcium 10.0 MG/DL 8.4-10.2 BUN 23 MG/DL 7-21 Chloride 97 MMOLL 98-107 AST 23 U/L 15-46 ALT 30 U/L 7-56 Albumin 4.2 G/DL 3.5-5.0 A/G Ratio 1.3 RATIO 1.2-2.2 Bun/Creat 21.3 RATIO 7-25 Alk Phos 99 U/L 38-126 CO2 34 MMOLL 22-30 Glucose 88 MG/DL 65-110 Globulin 3.2 2.4-3.5 Creatinine 1.1 MG/DL 0.7-1.5 COMPLETE BLOOD COUNT - 01/26/13 06:36 Platelet 245 10^3u 142-424 MPV 10.7 FL 9.4-12.4 [place] # 0.73 10^3u 0.0-1.0 RBC 4.35 10^6u 4.04-6.13 [place] % 10.8 % 0-12 RDW 14.1 % [...] Calcium 10.4 MG/DL 8.4-10.2 BUN 36 MG/DL 7- Chloride 97 MMOLL 98-107 AST 22 U/L [...] BUN - 02/23/13 08:18 BUN 34 MG/DL 09-28 Creatinine - 02/23/13 08:18 Creatinine 1.8 MG/DL 0.7-1.5 Protime - 02/23/13 08:18 INR 1.2 Protime 12.4 SEC 9.6-11.9 Protime - 02/27/13 08:35 INR 3.6 Protime 36.8 SEC 9.6-11.9 BUN - 03/02/13 15:44 BUN 42 MG/DL 7 Creatinine - 03/02/13 15:44 Creatinine 2.6 MG/DL [...] 203 10^3u 142-424 MPV 10.2 FL 9.4-12.4 [place] # 0.43 10^3u 0.0-1.0 RBC 3.98 10^6u 4.04-6.13 [place] % 7.8 % 0-12 RDW 15.1 % [...] 203 10^3u 142-424 MPV 10.1 FL 9.4-12.4 [place] # 0.47 10^3u 0.0-1.0 RBC 4.00 10^6u 4.04-6.13 [place] % 5.6 % 0-12 RDW 14.0 % [...] 212 10^3u 142-424 MPV 10.3 FL 9.4-12.4 [place] # 0.55 10^3u 0.0-1.0 RBC 3.82 10^6u 4.04-6.13 [place] % 7.5 % 0-12 RDW 14.0 % [...] 191 10^3u 142-424 MPV 10.3 FL 9.4-12.4 [place] # 0.52 10^3u 0.0-1.0 RBC 4.86 10^6u 4.04-6.13 [place] % 5.8 % 0-12 RDW 13.2 % [...] AST 44 U/L 15-46 ALT 72 U/L 7-56 Albumin 4.8 G/DL 3.5-5.0 A/G Ratio 1.4 RATIO 1.2-2.2 Bun/Creat 21.1 RATIO 7-25 Alk Phos 146 U/L 38-126 CO2 36 MMOLL 22-30 Glucose 101 MG/DL 65-110 Globulin 3.4 2.4-3.5 Creatinine 1.5 MG/DL 0.7-1.5 COMPLETE BLOOD COUNT - 10/19/13 04:40 Platelet 229 10^3u 142-424 MPV 11.5 FL 9.4-12.4 [place] # 0.85 10^3u 0.0-1.0 RBC 5.43 10^6u 4.04-6.13 [place] % 6.2 % 0-12 RDW 13.4 % [...] Calcium 10.1 MG/DL 8.4-10.2 BUN 18 MG/DL 7-21 Chloride 97 MMOLL 98-107 AST 35 U/L [...] Urobilinogen 0.2 0.2-1.0 Urine RBC N16-20 Specific [place] 1.020 1.010-1.020 Urine WBC N3-5 Urine Bacteria 1+ Blood 1+ Negative Color Yellow Yellow Squamous Epithelial Cells 2+ Bilirubin Negative Negative Site UNK COMPLETE BLOOD COUNT - 02/25/14 12:58 Platelet 211 10^3u 142-424 MPV 11.0 FL 9.4-12.4 [place] # 0.46 10^3u 0.0-1.0 RBC 4.49 10^6u 4.04-6.13 [place] % 4.9 % 0-12 RDW 13.3 % [...] 3.3 2.4-3.5 Creatinine 1.5 MG/DL 0.7-1.5 Respiratory Panel-[facility] - 02/25/14 16 :44 [place] Not [...] Human Rhinovirus 4 ND Not Detecte d [id number] ND Not Detected FluA-H1-mccullough ND Not Detected [...] 329 10^3u 142-424 MPV 10.7 FL 9.4-12.4 [place] # 0.67 10^3u 0.0-1.0 RBC 4.43 10^6u 4.04-6.13 [place] % 5.8 % 0-12 RDW 13.3 % [...] 216 10^3u 142-424 MPV 11.2 FL 9.4-12.4 [place] # 0.50 10^3u 0.0-1.0 RBC 4.35 10^6u 4.04-6.13 [place] % 5.3 % 0-12 RDW 14.1 % [...] Urobilinogen 0.2 0.2-1.0 Urine RBC NONESEEN Specific [place] 1.010 1.010-1.020 Urine WBC NONESEEN Urine Bacteria Trace Blood Negative Negative Color Yellow Yellow Squamous Epithelial Cells 1+ Bilirubin Negative Negative Site UNK EKG - 07/11/15 03:33 EKG SMR Urinalysis - 02/28/16 11:23 Glucose Negative Negative Leukocyte Negative Negative Nitrite Negative Negative pH 6.0 5.5-7.5 Urine Appearance Clear Clear Protein Negative Negative Ketones Negative Negative Urobilinogen 0.2 0.2-1.0 Urine RBC NONESEEN Specific [place] 1.010 1.010-1.020 Urine WBC NONESEEN Blood Negative [...] NRG Blood erythrocyte morphology finding identification [facility] Comprehensive metabolic panel - 05/27/18 17:20 Serum [...] 0.0-0.1 Whole blood basic metabolic panel - 05/0 05/27 10:30 Serum or plasma sodium measurement [...] 08:47 FREE TEXT EXTERNAL NO SUSCEPTIBILITY PERFORMED NRG QUANTITY OF GROWTH Isolated NRG Bacterial blood culture [id number] NRG FREE TEXT ENTRY 2 TESTING IN PROGRESS N FREE TEXT ENTRY 3 RML REPORTED ID 09/05/18 14:05 NRG Bacterial blood culture - 09/03/18 08:57 FREE TEXT EXTERNAL SUSCEPTIBILITY REPORTED 09-06-185. NRG QUANTITY OF GROWTH Isolated NRG Bacterial blood culture [id number] NRG FREE TEXT ENTRY 2 RML REPORTED ID 09/05/18 14:05 NRG FREE TEXT ENTRY 3 CLINDAMYCIN RESISTANT WITHOUT IN DUCTION NRG RML [facility] - 09/03/18 08:5 [...] (moles/volume) 1.06 % 1.16-1.32 pH measurement 7.37 NRG Sputum Gram stain - 09/04/18 01:18 Sputum Gram stain Mixed Bacterial Kellen NRG Bacterial sputum culture - 09/04/18 01:1 8 QUANTITY OF GROWTH Moderate Growth NRG Bacterial sputum culture [id number] NRG Dirithromycin susceptibility test by dis k [...] - 09/08/18 05:45 Magnesium 1.4 mg/dL 1.8-2.4 POTASSIUM - 10/17/18 15:01 POTASSIUM 5.4 mmol/L 3.5-5.3 Comprehensive metabolic panel - 12/04/18 15:45 Serum or plasma sodium measurement (moles/volume) 142 mmol/L 135-145 Serum or plasma potassium measurement (moles/volume) 4.8 mmol/L 3.6-5.0 Serum or plasma chloride measurement (moles/volume) 103 mmol/L 98-107 Carbon dioxide 26 mmol/L 21-32 [...] body temperature 36.8 NRG Radiology Report from [id number] on 012 08:23:00 Final ReportADMITTING DIAGNOSIS: Renal Failure line placementCHEST PORTABLE SINGLE VIEW - 01/28/2012 [facility] RESULT: INDICATION: Evaluation line placement.No prior examinations are available for comparison.FINDINGS: There is a right internal jugular central venouscatheter which has its tip in the superior vena cava. Heart sizeis normal. Lungs are clear. There is no pleural effusion orpneumothorax.IMPRESSION: 1. Stable appearance of the chest.2. Right internal jugular central venous catheter with its tipin the superior vena cava.Dictated on workstation # [id number] BY: DEZ ROGERS II, M.D., RADIOLOGISTELECTRONICALLY SIGNED BY: DEZ ROGERS II, M.D., RADIOLOGISTD Jan 28 2012 6:28AT [place]: Jan 29 2012 6:32AS Jan 29 2012 6:32A Radiology Report from [id number] on 08:23:00 Final ReportADMITTING DIAGNOSIS: Renal Failure CHANGE OF EXAM FOR CORRECT CHARGINGCT CHEST/ABD/PELVIS W/O - 01/28/2012 [facility] RESULT: INDICATION: Sepsis, fall, shortness of [...] about the right hip.Cholelithiasis.Dictated on workstation # [id number] BY: DEZ ROGERS II, M.D., RADIOLOGISTELECTRONICALLY SIGNED BY: DEZ ROGERS II, M.D., RADIOLOGISTD Jan 28 2012 6:05AT JUWAN: Jan 29 2012 6:32AS Jan 29 2012 6:32A Radiology Report from [id number] on 012 08:23:00 Final ReportADMITTING DIAGNOSIS: Renal Failure acute renal failureRENAL SONO BILATERAL - 01/28/2012 [facility] ON [facility] RESULT: INDICATION: Acute renal failure.TECHNIQUE: Multiple [...] renal cyst.Cholelithiasis and ascites.Dictated on workstation # [id number] RADIOLOGIST: DEZ ROGERS II, M.D., RADIOLOGISTELECTRONICALLY SIGNED BY: DEZ ROGERS II, M.D., RADIOLOGISTD Jan 28 2012 7:08AT SA2: Jan 29 2012 6:32AS Jan 29 2012 6:32A Radiology Report from [id number] on 012 15:40:00 Final ReportADMITTING DIAGNOSIS: Renal Failure ETT placementCHEST PORTABLE SINGLE VIEW - 01/29/2012 [facility] RESULT: INDICATION:Evaluate tube placement.COMPARISON:January 28, 2012.FINDINGS:The [...] and right pleural effusion.Dictated on workstation # [id number] BY: DEZ ROGERS II, M.D., RADIOLOGISTELECTRONICALLY SIGNED BY: DEZ ROGERS II, M.D., RADIOLOGISTD Jan 29 2012 1:23PT JM : Jan 29 2012 3:38PS Jan 29 2012 3:38P Radiology Report from [id number] on 012 09:01:00 Final ReportADMITTING DIAGNOSIS: Renal Failure MESENTERIC W/ POSSIBLE THROMBOLYSISMESENTERIC(VISCERAL)ARTERIOGRAM - 01/29/2012 [facility] RESULT: Indication: bowel. Nonpalpable pulse of the superiormesenteric artery intraoperatively. 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 Musa.Total fluoroscopy time: 19.3 minutes.Total contrast: [...] to recent surgery.Results were discussed with Dr. aJyden Torres by Dr. Musa at thecompletion of the procedure on 01/29/2012.Dictated on workstation # [id number] BY: CARLTON MUSA M.D., ELECTRONICALLY SIGNED BY: CARLTON MUSA M.D., Lyndsey Feb 01 2012 7:49AT KB : Feb 01 2012 8:58AS Feb 01 2012 8:58A Radiology Report from [id number] on 08:46:00 Final ReportADMITTING DIAGNOSIS: Renal Failure resp distressCHEST PORTABLE SINGLE VIEW - 01/30/2012 [facility] RESULT: TIME: 4:42 a.m.INDICATION: Respiratory distressUpright [...] a telectasis and infiltrate.Dictated on workstation # [id number] BY: JONAH BRUCE M.D., RADIOLOGISTELECTRONICALLY SIGNED BY: JONAH BRUCE M.D., RADIOLOGISTD Jan 30 2012 7:17AT JUWAN: Jan 30 2012 8:44AS Jan 30 2012 8:44A Radiology Report from [id number] on 16:54:00 Final ReportADMITTING DIAGNOSIS: Renal Failure OR 25 post-op exp lapABDOMEN(KUB) - 01/30/2012 [facility] RESULT: INDICATION: Rule out postop foreign body.FINDINGS: Skin pedro are seen down the midline of the abdomen.The bowel gas pattern is nonspecific. A nasogastric tube is inplace. There are no unexpected postop foreign bodies.IMPRESSION: No unexpected postop foreign bodies.Dictated on workstation # [id number] BY: DEZ ROGERS II, M.D., RADIOLOGISTELECTRONICALLY SIGNED BY: DEZ ROGERS II, M.D., RADIOLOGISTD Jan 30 2012 3:35PT PH : Jan 30 2012 3:38PS Jan 30 2012 4:51P Radiology Report from [id number] on 11:33:00 Final ReportADMITTING DIAGNOSIS: Renal Failure Resp distressCHEST PORTABLE SINGLE VIEW - 01/31/2012 [facility] RESULT: INDICATION: Respiratory failureCOMPARISON: 01/30/2012FINDINGS: Single frontal view of the chest demonstratesunchanged infiltrate, effusion and atelectasis in the right lungbase. Left lung is clear. The heart size is prominent butstable. There is no pneumothorax. Tubes and lines are stable.IMPRESSION: Unchanged aeration of the right lung base.Dictated on workstation # [id number] BY: MARZENA LYLES M.D., RADIOLOGISTELECTRONICALLY SIGNED BY: MARZENA LYLES M.D., RADIOLOGISTD Jan 31 2012 6:57AT JUWAN: Jan 31 2012 11:31AS Jan 31 2012 11:31A Radiology Report from [id number] on 012 08:34:00 Final ReportADMITTING DIAGNOSIS: Renal Failure To assess resp. statusCHEST PORTABLE SINGLE VIEW - 02/01/2012 [facility] RESULT: Indication: Respiratory distress.Comparison: 01/31/2012.Findings: Single frontal view of the chest demonstratesworsening bilateral pulmonary infiltrates and atelectasis. Heartremains enlarged with trace interstitial edema. There is nopneumothorax.IMPRESSION: Worsening infiltrates, atelectasis and interstitialedema.Dictated on workstation # [id number] BY: MARZENA LYLES M.D., RADIOLOGISTELECTRONICALLY SIGNED BY: MARZENA LYLES M.D., RADIOLOGISTD Feb 01 2012 6:31AT KB : Feb 01 2012 8:31AS Feb 01 2012 8:31A Radiology Report from [id number] on 012 12:19:00 Final ReportADMITTING DIAGNOSIS: Renal Failure assess resp statusCHEST PORTABLE SINGLE VIEW - 02/02/2012 [facility] RESULT: INDICATION: Assess respiratory status.EXAMINATION: Frontal [...] noted but overall improving.Dictated on workstation # [id number] BY: KEIKO SIMMONS M.D., ELECTRONICALLY SIGNED BY: KEIKO SIMMONS M.D., D Feb 02 2012 8:27AT MAX: Feb 02 2012 12:16PS Feb 02 2012 12:16P Radiology Report from [id number] on 12:23:00 Final ReportADMITTING DIAGNOSIS: Renal Failure Dobhoff placementKUB (ABDOMEN) - 02/02/2012 [facility] RESULT: INDICATION: Dobbhoff catheter placementEXAMINATION: Abdomen 02/02/2012FINDINGS:Frontal abdomenA Dobbhoff catheter is noted. It is looped in the stomach butthe tip appears to extend into the second portion of theduodenum. The stomach is distended with air. No free air noted.IMPRESSION: 1. Dobbhoff catheter tip likely in the second portion of theduodenum.Dictated on workstation # [id number] BY: KEIKO SIMMONS M.D., ELECTRONICALLY SIGNED BY: KEIKO SIMMONS M.D., D Feb 02 2012 11:04AT JUWAN: Feb 02 2012 12:20PS Feb 02 2012 12:20P Radiology Report from [id number] on 09:13:00 Final ReportADMITTING DIAGNOSIS: Renal Failure R/O DVTEXT LOWER VENOUS DUPLEX UNI RT - 02/02/2012 [facility] RESULT: INDICATION: Right leg pain and [...] lower extremity deep venousthrombosis.Dictated on workstation # [id number] RADIOLOGIST: Edwar MELTON M.D., RADIOLOGISTELECTRONICALLY SIGNED BY: Edwar MELTON M.D., RADIOLOGISTD Feb 02 2012 1:17PT MAX: Feb 04 2012 9:11AS Feb 04 2012 9:11A Radiology Report from [id number] on 13:32:00 Final ReportADMITTING DIAGNOSIS: Renal Failure dobhoff placementKUB(ABD)TUBE PLCMT POST PYLORIC - 02/03/[address] [facility] [address] RESULT: INDICATION: Dobhoff placement.TIME OF EXAM: [...] for malpositioned Dobhoff.Di ctated on workstation # [id number] BY: JOSUE CORDOVA M.D., RADIOLOGISTELECTRONICALLY SIGNED BY: JOSUE CORDOVA M.D., RADIOLOGISTD Feb 04 2012 11:53AT MSK: Feb 05 2012 1:30PS Feb 05 2012 1:30P Radiology Report from [id number] on 012 10:46:00 Final ReportADMITTING DIAGNOSIS: [facility]al Failure [facility] 02/03/2012 [facility] RESULT: INDICATION: Check respiratory status.EXAMINATION: Frontal chest 02/03/2012.COMPARISON: 02/03/2012 at earlier time.FINDINGS: The heart is stable in appearance. There is pulmonaryvascular congestion. Bibasilar infiltrates and effusions arenoted with pulmonary edema throughout remaining lungs. The chestappears overall stable. Right central line is unchanged with afeeding tube coursing beneath the diaphragm.IMPRESSION: 1. Stable chest.Dictated on wor kstation # [id number] BY: KEIKO SIMMONS M.D., ELECTRONICALLY SIGNED BY: KEIKO SIMMONS M.D., D Feb 03 2012 8:40AT SA2: Feb 03 2012 10:44AS Feb 03 2012 10:44A Radiology Report from [id number] on 012 09:52:00 Final ReportADMITTING DIAGNOSIS: Renal Failure To assess resp. statusCHEST PORTABLE SINGLE VIEW - 02/04/2012 [facility] RESULT: INDICATION: Pulmonary infiltrates.Time of exam: 4:49 AMComparison is made with prior study from one day earlier.Right-sided central line and Dobbhoff remain in place. Bibasilarinfiltrates and effusions persist. There is some perihilarinfiltrate noted. No pneumothorax is seen.IMPRESSION: No change when compared with exam one day earlier.Dictated on workstation # [id number] BY: JOSUE CORDOVA M.D., RADIOLOGISTELECTRONICALLY SIGNED BY: JOSUE CORDOVA M.D., RADIOLOGISTD Feb 04 2012 7:46AT RF : Feb 04 2012 9:49AS Feb 04 2012 9:49A Radiology Report from [id number] on 012 09:52:00 Final ReportADMITTING DIAGNOSIS: Renal Failure dh placementKUB(ABD)TUBE PLCMT POST PYLORIC - 02/04/2012 [facility] RESULT: INDICATION: Dobbhoff placement.Time of exam: 4:43 AMPortable supine view of the abdomen was obtained.FINDINGS: Dobbhoff catheter appears to have a tip at thejunction of the second and third portion of the duodenum. Thereis moderate gaseous distention to the stomach noted.IMPRESSION: Dobbhoff catheter has a tip at the junction of thesecond and third portion of the duodenum.Dictated on workstation # [id number] BY: JOSUE CORDOVA M.D., RAD IOLOGISTELECTRONICALLY SIGNED BY: JOSUE CORDOVA M.D., RADIOLOGISTD Feb 04 2012 7:40AT SA2: Feb 04 2012 9:49AS Feb 04 2012 9:49A Radiology Report from [id number] on 012 13:33:00 Final ReportADMITTING DIAGNOSIS: Renal Failure DHT placementKUB (ABDOMEN) - 02/04/2012 [facility] RESULT: INDICATION: Dobbhoff placement.Time of exam: 10:28 a.m.Portable view of the abdomen was obtained. There is Dobbhoffcatheter which has tip at the junction of the second and thirdportion of the duodenum. There is some linear atelectasis inright base.IMPRESSION: Satisfactory Dobbhoff placement.Dictated on workstation # [id number] BY: JOSUE CORDOVA M.D., RADIOLOGISTELECTRONICALLY SIGNED BY: JOSUE CORDOVA M.D., RADIOLOGISTD Feb 04 2012 11:55AT JUWAN: Feb 05 2012 1:31PS Feb 05 2012 1:31P Radiology Report from [id number] on 012 11:34:00 Final ReportADMITTING DIAGNOSIS: Renal Failure increased o2 requirementsCHEST PORTABLE SINGLE VIEW - 02/05/2012 [facility] RESULT: INDICATION: Hypoxia.COMPARISON: Study compared 02/04/2012.FINDINGS: Findings of pulmonary edema and vascular congestionhave improved from the previous study. There is some discoidright basilar subsegmental atelectasis with no other adversechange.IMPRESSION: Reduction in edema and failure pattern with mildright basilar atelectasis.Dictated on workstation # [id number] BY: DEMETRIUS KUMAR M.D., RADIOLOGISTELECTRONICALLY SIGNED BY: DEMETRIUS KUMAR M.D., RADIOLOGISTD Feb 05 2012 7:19AT AIG: Feb 05 2012 11:31AS Feb 05 2012 11:31A Radiology Report from [id number] on 09:28:00 Final ReportADMITTING DIAGNOSIS: Renal Failure SOACHEST PORTABLE SINGLE VIEW - 02/06/2012 [facility] RESULT: TIME: 5:54 a.m.INDICATION: Short of air.FINDINGS: Upright portable chest shows normal heart size andvascularity. There is bibasilar discoid atelectasis. There is noeffusion. PICC line tip is in the SVC. Dobbhoff tube is present.IMPRESSION: Bibasilar atelectasis. The vascularity has decreasedslightly since 02/05/2012.Dictated on workstation # [id number] BY: JONAH BRUCE M.D., RADIOLOGISTELECTRONICALLY SIGNED BY: JONAH BRUCE M.D., RADIOLOGIS TD Feb 06 2012 7:12AT SA2: Feb 06 2012 9:25AS Feb 06 2012 9:25A Radiology Report from [id number] on 012 10:21:00 Final ReportADMITTING DIAGNOSIS: Renal Failure Resp distressCHEST PORTABLE SINGLE VIEW - 02/07/2012 [facility] RESULT: INDICATION: Respiratory distress.Portable chest obtained at 5:24 a.m. and compared to yesterday.FINDINGS: Dobbhoff tube and central venous catheter areunchanged. The heart is normal in size. There is centralvascular congestion with patchy bibasilar infiltrate, rightgreater than left. There is no pneumothorax.IMPRESSION: Unchanged Dobbhoff tube and central venous catheter. Patchybibasilar infiltrates, right greater than left. No newabnormality compared to yesterday.Dictated on workstation # [id number] BY: CYNTHIA FERREIRA M.D., RADIOLOGISTELECTRONICALLY SIGNED BY: CYNTHIA FERREIRA M.D., RADIOLOGISTD Feb 07 2012 7:32AT FRANCOIS: Feb 07 2012 10:19AS Feb 07 2012 10:19A Radiology Report from [id number] on 012 15:10:00 Final ReportADMITTING DIAGNOSIS: Renal Failure tube placementCHEST PORTABLE SINGLE VIEW - 02/07/2012 [facility] RESULT: INDICATION: Endotracheal tube placementRESULT: A [...] significant change ofthe lungs.Dictated on workstation # [id number] BY: LUIS A JAMES M.D., ELECTRONICALLY SIGNED BY: LUIS A JAMES M.D., Lyndsey Feb 07 2012 1:14PT MAX: Feb 07 2012 3:07PS Feb 07 2012 3:07P Radiology Report from [id number] on 012 08:36:00 Final ReportADMITTING DIAGNOSIS: Renal Failure R/O anastamosis leakGASTROGRAFIN SMALL BOWEL - 02/07/2012 [facility] RESULT: INDICATION: Suspicion for anastomotic leak.TECHNIQUE: [...] visualize extravasated or extraluminalcontrast.Dictated on workstation # [id number] BY: DEMETRIUS KUMAR M.D., RADIOLOGISTELECTRONICALLY SIGNED BY: DEMETRIUS KUMAR M.D., RADIOLOGISTD Feb 07 2012 4:03PT MICHELLE : Feb 11 2012 8:33AS Feb 11 2012 8:33A Radiology Report from [id number] on 012 15:55:00 Final ReportADMITTING DIAGNOSIS: Renal Failure anastamosis leakCT ABD/PELVIS W - 02/07/2012 [facility] RESULT: EXAMINATION: CT of the abdomen [...] and right-sided pleural effusion.Dictated on workstation # [id number] BY: PAIGE DYER M.D., RADIOLOGISTELECTRONICALLY SIGNED BY: PAIGE DYER M.D., RADIOLOGISTD Feb 07 2012 2:24PT FRANCOIS: Feb 07 2012 3:53PS Feb 07 2012 3:53P Radiology Report from [id number] on 012 12:07:00 Final ReportADMITTING DIAGNOSIS: Renal Failure fluid volume overloadCHEST PORTABLE SINGLE VIEW - 02/08/2012 [facility] RESULT: INDICATION: Fluid overload. Respiratory distress.Portable film done on 11:30 compared to the previous day. Thereis interval increase in the diffuse bilateral edema/infiltratesin the hilar and perihilar areas and in both lung bases. Thepulmonary vessels remain congested. Tip of ET tube is well abovethe katie. Right jugular catheter is unchanged in the SVC.IMPRESSION: Bilateral infiltrates/edema have increased from theprevious day.Dictated on workstation # [id number] BY: IVETT PONCE M.D., RADIOLOGISTELECTRONICALLY SIGNED BY: IVETT PONCE M.D., RADIOLOGISTD Feb 08 2012 8:25AT JUWAN: Feb 08 2012 12:05PS Feb 08 2012 12:05P Radiology Report from [id number] on 012 11:31:00 Final ReportADMITTING DIAGNOSIS: Renal Failure intraabdominal fluid collectionCT ABDOMEN (WO CONTRAST) - 02/08/2012 [facility] RESULT: INDICATION: Abdominal fluid collection.FINDINGS: Patient [...] was therefore not performed.Dictated on workstation # [id number] BY: CYNTHIA FERREIRA M.D., RADIOLOGISTELECTRONICALLY SIGNED BY: CYNTHIA FERREIRA M.D., RADIOLOGISTD Feb 08 2012 10:02AT AIG: Feb 08 2012 11:29AS Feb 08 2012 11:29A Radiology Report from [id number] on 012 06:10:00 Final ReportADMITTING DIAGNOSIS: Renal Failure to assess resp. statusCHEST PORTABLE SINGLE VIEW - 02/09/2012 [facility] RESULT: INDICATION: Fluid overload.COMPARISON: Comparison made with prior examination of 02/08/2012.FINDINGS: Lines and tubes are in satisfactory position. Theheart size is stable. There is some central pulmonary venouscongestion. There are bibasilar infiltrates. There is no pleuraleffusion or pneumothorax. Mediastinum is unremarkable.IMPRESSION: 1. Interval improvement in the bibasilar pulmonary infiltrates.2. Persistent central pulmonary venous congestion.Dictated on workstation # [id number] BY: DEZ ROGERS II, M.D., RADIOLOGISTELECTRONICALLY SIGNED BY: DEZ ROGERS II, M.D., RADIOLOGISTD Feb 09 2012 8:16AT MK4: Feb 11 2012 6:07AS Feb 11 2012 6:07A Radiology Report from [id number] on 012 16:58:00 Final ReportADMITTING DIAGNOSIS: Renal Failure POST OP JEJUNUMOSTOMY TUBE PLACEMENTABDOMEN(KUB) - 02/09/2012 [facility] RESULT: Single AP view of the abdomen.INDICATION: Jejunostomy tube placement.FINDINGS: Jejunostomy tube is demonstrated. There is no evidenceof unexpected radiopaque foreign body. The bowel gas patternappears nonobstructed.Patient is status post previous bilateral hip arthroplasty.IMPRESSION: Single AP view of the abdomen demonstrates a newlyplaced jejunostomy tube. No supine evidence of free air isdemonstrated. No unexpected radiopaque foreign body is seen.Dictated on workstation # [id number] BY: PAIGE DYER M.D., RADIOLOGISTELECTRONICALLY SIGNED BY: PAIGE DYER M.D., RADIOLOGISTD Feb 09 2012 2:25PT SA2: Feb 09 2012 4:56PS Feb 09 2012 4:56P Radiology Report from [id number] on 012 13:45:00 Final ReportADMITTING DIAGNOSIS: Renal Failure Resp distressCHEST PORTABLE SINGLE VIEW - 02/10/2012 [facility] RESULT: Portable chest, February 10, 2012. [...] appearance of bibasilar infiltrates.Dictated on workstation # [id number] BY: PAIGE DYER M.D., RADIOLOGISTELECTRONICALLY SIGNED BY: PAIGE DYER M.D., RADIOLOGISTD Feb 10 2012 11:33AT SA2: Feb 10 2012 11:43AS Feb 10 2012 1:43P Radiology Report from [id number] on 012 16:46:00 Final ReportADMITTING DIAGNOSIS: Renal Failure picc placementCHEST PIC LINE PLACEMENT-ONE VIE - 02/10/2012 [facility] RESULT: EXAMINATION: Portable chest.Compared to prior [...] tube remains appropriately positioned.Dictated on workstation # [id number] BY: PAIGE DYER M.D., RADIOLOGISTELECTRONICALLY SIGNED BY: PAIGE DYER M.D., RADIOLOGISTD Feb 10 2012 4:34PT FRANCOIS: Feb 10 2012 4:38PS Feb 10 2012 4:44P Radiology Report from [id number] on 012 17:08:00 Final ReportADMITTING DIAGNOSIS: Renal Failure Resp distressCHEST PORTABLE SINGLE VIEW - 02/11/2012 [facility] RESULT: INDICATION: Respiratory distressEXAMINATION: Chest AP [...] alignment. The chest otherwisenormal.Dictated on workstation # [id number] BY: SANJIV WESTON M.D., RADIOLOGISTELECTRONICALLY SIGNED BY: SANJIV WESTON M.D., RADIOLOGISTD Feb 11 2012 8:31AT MAX: Feb 11 2012 5:05PS Feb 11 2012 5:05P Radiology Report from [id number] on 012 08:56:00 Final ReportADMITTING DIAGNOSIS: Renal Failure Resp distressCHEST PORTABLE SINGLE VIEW - 02/12/2012 [facility] RESULT: INDICATION: Respiratory distressEXAMINATION: Chest AP [...] is in good alignment.Dictated on workstation # [id number] BY: SANJIV WESTON M.D., RADIOLOGISTELECTRONICALLY SIGNED BY: SANJIV WESTON M.D., RADIOLOGISTD Feb 12 2012 6:52AT MAX: Feb 12 2012 8:54AS Feb 12 2012 8:54A Radiology Report from [id number] on 012 13:49:00 Final ReportADMITTING DIAGNOSIS: Renal Failure unidentified bleedMESENTERIC(VISCERAL)ARTERIOGRAM - 02/12/2012 [facility] RESULT: INDICATION: Recurrent GI bleed, most [...] femoralartery and arteriotomy was upsized to a 4-Chinese sheath. Next, a4-Chinese Cobra catheter was advanced into the superiormesenteric [...] addressed at this time.Dictated on workstation # [id number] BY: Edwar MELTON M.D., RADIOLOGISTELECTRONICALLY SIGNED BY: Edwar MELTON M.D., RADIOLOGISTD Feb 14 2012 1:28PT FRANCOIS: Feb 15 2012 1:46PS Feb 15 2012 1:46P Radiology Report from [id number] on 012 09:25:00 Final ReportADMITTING DIAGNOSIS: Renal Failure to assess resp. statusCHEST PORTABLE SINGLE VIEW - 02/13/2012 [facility] RESULT: INDICATION: Respiratory distress.2 frontal radiographs [...] aboutthe areas of infiltrate.Dictated on workstation # [id number] BY: MARITZA MENDOZA D.O., RADIOLOGISTELECTRONICALLY SIGNED BY: MARITZA MENDOZA D.O., RADIOLOGISTD Feb 13 2012 7:45AT MAX: Feb 13 2012 8:02AS Feb 13 2012 9:23A Radiology Report from [id number] on 012 08:34:00 Final ReportADMITTING DIAGNOSIS: Renal Failure Resp distressCHEST PORTABLE SINGLE VIEW - 02/14/[address] [facility] [address] [facility] RESULT: INDICATION: Respiratory distress.TIME OF EXAM: [...] from thecomparison study 02/13/2012.Dictated on workstation # [id number] BY: LEW LYONS M.D., RADIOLOGISTELECTRONICALLY SIGNED BY: LEW LYONS M.D., RADIOLOGISTD Feb 14 2012 7:54AT AIG: Feb 14 2012 8:32AS Feb 14 2012 8:32A Radiology Report from [id number] on 09:17:00 Final ReportADMITTING DIAGNOSIS: Renal Failure to assess resp. statusCHEST PORTABLE SINGLE VIEW - 02/15/2012 [facility] RESULT: INDICATION: Respiratory distressCOMPARISON: 02/14/2012FINDINGS:Again seen is patchy infiltrate in the bases bilaterally, leftgreater than right. The heart remains stable. There is nopulmonary edema, pneumothorax or pleural effusion. Tubes andlines are stable.IMPRESSION: Unchanged basilar infiltrates.Dictated on workstation # [id number] BY: MARZENA LYLES M.D., RADIOLOGISTELECTRONICALLY SIGNED BY: MARZENA LYLES M.D., RADIOLOGISTD Feb 15 2012 6:30AT RF : Feb 15 2012 9:14AS Feb 15 2012 9:14A Radiology Report from [id number] on 012 11:06:00 Final ReportADMITTING DIAGNOSIS: Renal Failure Resp. assessmentCHEST PORTABLE SINGLE VIEW - 02/16/[address] [facility] RESULT: INDICATION: Shortness of breath.Comparison made with prior examination from February 15, 2012FINDINGS: The heart size is normal. There is some venouscongestion. There are bibasilar infiltrates. There is no pleuraleffusion or pneumothorax. The mediastinum is unremarkable.IMPRESSION: Bibasilar pulmonary infiltrates.Mild central pulmonary venous congestion.Dictated on workstation # [id number] BY: DEZ ROGERS II, M.D., RADIOLOGISTELECTRONICALLY SIGNED BY: DEZ ROGERS II, M.D., RADIOLOGISTD Feb 16 2012 7:50AT JUWAN: Feb 16 2012 11:03AS Feb 16 2012 11:03A Radiology Report from [id number] on 08:56:00 Final ReportADMITTING DIAGNOSIS: [facility]17[facility]2012 [facility] RESULT: INDICATION: Respiratory distress.EXAMINATION: Portable chest at 6:04 a.m.FINDINGS: The right upper extremity PICC line tip projects overthe SVC. The heart size and pulmonary vascularity are normal.There has been some interval improvement of bibasilarinterstitial infiltrates compared to the previous day.IMPRESSION: Improving basilar pulmonary infiltrates.Dictated on workstation # [id number] BY: HARRY NARAYAN M.D., RADIOLOGISTELECTRONICALLY SIGNED BY: HARRY NARAYAN M.D., RADIOLOGISTD Feb 17 2012 8:37AT IMS: Feb 17 2012 8:54AS Feb 17 2012 8:54A Radiology Report from [id number] on 08:13:00 Final ReportADMITTING DIAGNOSIS: Renal Failure to [facility] - 02/18/2012 [facility] RESULT: INDICATION: Pulmonary infiltrates.Time of exam: 5:33 a.m.Correlation is made with prior study one day earlier. Rightupper extremity line has tip overlying the SVC. Heart size isstable. Basilar infiltrates appear to be slightly worse ontoday''s study. Minimal infiltrate right midlung is also noted.There is no effusion or pneumothorax.IMPRESSION: Slight increase in basilar infiltrates when comparedto exam one day earlier.Dictated on workstation # [id number] BY: JOSUE D TASHA, M.D., RADIOLOGISTELECTRONICALLY SIGNED BY: JOSUE CORDOVA M.D., RADIOLOGISTD Feb 18 2012 6:25AT JUWAN: Feb 18 2012 8:11AS Feb 18 2012 8:11A Radiology Report from [id number] on 012 08:16:00 Final ReportADMITTING DIAGNOSIS: Renal Failure today- swallow failedMODIFIED BARIUM SWALLOW - 02/18/2012 [facility] RESULT: INDICATION: Dysphagia.EXAMINATION: Video fluoroscopy was performed in the routinefashion, with speech pathology, in the upright and lateralposition.Patient was given thin barium, nectar material, as well aspudding material and then barium-coated cookie. There is weakand discoordinated swallowing with evidence of silent aspirationwith all materials. There is no residual in the pharyngealrecesses.IMPRESSION: Evidence of aspiration, as above.Dictated on workstation # [id number] BY: CYNTHIA FERREIRA M.D., RADIOLOGISTELECTRONICALLY SIGNED BY: CYNTHIA FERREIRA M.D., RADIOLOGISTD Feb 18 2012 4:27PT AS6: Feb 19 2012 8:14AS Feb 19 2012 8:14A Radiology Report from [id number] on 012 08:21:00 Final ReportADMITTING DIAGNOSIS: Renal Failure change in mental status - CT of head without contrastCT HEAD (W/O CONTRAST ) - 02/21/2012 [facility] RESULT: INDICATION: Change in mental status.COMPARISON: [...] No hemorrhage oracute-appearing abnormality.Dictated on workstation # [id number] BY: DEMETRIUS KUMAR M.D., RADIOLOGISTELECTRONICALLY SIGNED BY: DEMETRIUS KUMAR M.D., RADIOLOGISTD Feb 21 2012 4:14PT AS6: Feb 22 2012 8:19AS Feb 22 2012 8:19A Encounters ACCT No. Visit Date/Time Discharge Status Pt. Type Provider Facility Loc./Unit Complaint [id number] 02/28/2016 10:00:00 02/28/2016 10:00 :00 DIS Outpatient JUAN MCCABE MD, [facility] OTHER [id number] 02/23/2016 10:18:00 02/23/2016 10:18 :00 DIS Outpatient JUAN MCCABE MD, [facility] OTHER [id number] 07/07/2015 18:20:00 07/19/2015 13:25 :00 DIS Inpatient MARQUITA PHELAN, [facility] [id number] 07/07/2015 18:20:00 07/07/2015 18:20 :00 DIS Outpatient DWAINE PHELAN, [facility] OTHER [id number] 02/11/2015 10:20:00 02/11/2015 10:20 :00 DIS Outpatient JUANITO PHELAN, [facility] OTHER [id number] 11/16/2014 10:59:00 11/16/2014 10:59 :00 DIS Outpatient JUANITO PHELAN, [facility] OTHER [id number] 09/09/2014 14:58:00 09/09/2014 23:59 :59 CLS Outpatient JUANITO PHELAN, [facility] OTHER [id number] 02/25/2014 12:39:00 02/25/2014 12:39 :00 DIS Outpatient JUANITO PHELAN, [facility] OTHER [id number] 12/22/2013 11:36:00 12/22/2013 11:36 :00 DIS Outpatient JUANITO PHELAN, [facility] OTHER [id number] 10/19/2013 05:30:00 10/19/2013 05:30 :00 [facility] [id number] 10/19/2013 04:03:00 10/19/2013 05:30 :00 DIS Emergency JUANITO PHELAN, [facility] ER [id number] 10/19/2013 03:32:00 10/19/2013 03:32 :00 [facility] [id number] 10/07/2013 12:46:00 10/07/2013 12:46 :00 DIS Outpatient JUANITO PHELAN, [facility] OTHER [id number] 07/22/2013 10:23:00 07/22/2013 10:23 :00 DIS Outpatient JUANITO PHELAN, [facility] OTHER [id number] 07/02/2013 16:02:00 07/02/2013 16:02 :00 DIS Outpatient JUANITO PHELAN, [facility] OTHER [id number] 06/09/2013 06:29:00 06/09/2013 06:29 :00 DIS Outpatient JUANITO PHELAN, [facility] GLC [id number] 06/02/2013 09:51:00 06/02/2013 09:51 :00 DIS Outpatient JUANITO PHELAN, [facility] OTHER [id number] 05/25/2013 11:01:00 05/25/2013 11:01 :00 DIS Outpatient JUANITO PHELAN, [facility] GLC [id number] 05/05/2013 10:00:00 05/05/2013 10:00 :00 DIS Outpatient JUANITO PHELAN, [facility] GLC [id number] 04/27/2013 14:14:00 04/27/2013 14:14 :00 DIS Outpatient JUANITO PHELAN, [facility] GLC [id number] 03/31/2013 09:41:00 03/31/2013 09:41 :00 DIS Outpatient JUANITO PHELAN, [facility] GLC [id number] 03/10/2013 08:20:00 03/10/2013 08:20 :00 DIS Outpatient JUANITO PHELAN, [facility] GLC [id number] 03/02/2013 15:42:00 03/02/2013 15:42 :00 DIS Outpatient JUANITO PHELAN, [facility] GLC [id number] 02/27/2013 08:22:00 02/27/2013 08:22 :00 DIS Outpatient JUANITO PHELAN, [facility] [id number] 02/25/2013 07:01:00 02/25/2013 07:01 :00 DIS Outpatient JUANITO PHELAN, [facility] [id number] 02/23/2013 08:17:00 02/23/2013 08:17 :00 DIS Outpatient JUANITO PHELAN, [facility] GLC [id number] 02/22/2013 06:31:00 02/22/2013 06:31 :00 DIS Outpatient JUANITO PHELAN, [facility] [id number] 02/21/2013 09:14:00 02/21/2013 09:14 :00 DIS Outpatient JUANITO PHELAN, [facility] GLC [id number] 02/20/2013 08:29:00 02/20/2013 08:29 :00 DIS Outpatient JUANITO PHELAN, [facility] [id number] 02/19/2013 08:19:00 02/19/2013 08:19 :00 DIS Outpatient JUANITO PHELAN, [facility] [id number] 02/16/2013 09:47:00 02/16/2013 09:47 :00 DIS Outpatient JUANITO PHELAN, [facility] GLC [id number] 02/12/2013 06:11:00 02/12/2013 06:11 :00 DIS Outpatient JUANITO PHELAN, [facility] [id number] 02/11/2013 06:42:00 02/11/2013 06:42 :00 DIS Outpatient JUANITO PHELAN, [facility] GLC [id number] 02/10/2013 06:27:00 02/10/2013 06:27 :00 DIS Outpatient JUANITO PHELAN, [facility] GLC [id number] 02/06/2013 09:27:00 02/06/2013 09:27 :00 DIS Outpatient JUANITO PHELAN, [facility] [id number] 02/02/2013 06:12:00 02/02/2013 06:12 :00 DIS Outpatient JUANITO PHELAN, [facility] [id number] 01/29/2013 06:30:00 01/29/2013 06:30 :00 DIS Outpatient JUANITO PHELAN, [facility] [id number] 01/26/2013 06:37:00 01/26/2013 06:37 :00 DIS Outpatient JUANITO PHELAN, [facility] [id number] 01/23/2013 06:48:00 01/23/2013 06:48 :00 DIS Outpatient JUANITO PHELAN, [facility] GLC [id number] 01/14/2013 09:13:00 01/14/2013 09:13 :00 DIS Outpatient JUANITO PHELAN, [facility] OTHER [id number] 12/30/2012 12:59:00 12/30/2012 12:59 :00 DIS Outpatient JUANITO PHELAN, [facility] [id number] 12/03/2012 06:49:00 12/03/2012 06:49 :00 DIS Outpatient JUANITO PHELAN, [facility] GLC [id number] 11/07/2012 06:29:00 11/07/2012 06:29 :00 DIS Outpatient JUANITO PHELAN, [facility] GLC [id number] 10/29/2012 12:05:00 10/29/2012 12:05 :00 DIS Outpatient JUANITO PHELAN, [facility] OTHER [id number] 10/08/2012 11:32:00 10/08/2012 11:32 :00 DIS Outpatient JUANITO PHELAN, [facility] OTHER [id number] 09/24/2012 08:23:00 09/24/2012 08:23 :00 DIS Outpatient JUANITO PHELAN, [facility] GLC [id number] 09/17/2012 12:27:00 09/17/2012 12:27 :00 DIS Outpatient JUANITO PHELAN, [facility] OTHER [id number] 08/26/2012 09:54:00 08/26/2012 09:54 :00 DIS Outpatient JUANITO PHELAN, [facility] GLC [id number] 08/06/2012 09:51:00 08/06/2012 09:51 :00 DIS Outpatient JUANITO PHELAN, [facility] OTHER [id number] 07/30/2012 23:15:00 08/03/2012 15:30 :00 DIS Inpatient LEN PHELAN, [facility] NS1 [id number] 07/30/2012 21:30:00 07/30/2012 23:15 :00 DIS Emergency JUANITO PHELAN, [facility] OTHER [id number] 07/30/2012 22:20:00 07/30/2012 22:20 :00 DIS Outpatient LEN PHELAN, [facility] OTHER [id number] 07/30/2012 21:14:00 07/30/2012 21:14 :00 DIS Outpatient LEN PHELAN, [facility] OTHER [id number] 07/29/2012 06:12:00 07/29/2012 06:12 :00 DIS Outpatient JUANITO PHELAN, [facility] GLC [id number] 07/25/2012 11:22:00 07/25/2012 11:22 :00 DIS Outpatient JUANITO PHELAN, [facility] GLC [id number] 07/15/2012 16:26:00 07/15/2012 16:26 :00 DIS Outpatient JUANITO PHELAN, [facility] GLC [id number] 06/10/2012 12:26:00 06/10/2012 12:26 :00 DIS Outpatient JUANITO PHELAN, [facility] GLC [id number] 06/09/2012 06:36:00 06/09/2012 06:36 :00 DIS Outpatient JUANITO PHELAN, [facility] GLC [id number] 05/29/2012 11:46:00 05/29/2012 11:46 :00 DIS Outpatient JUANITO PHELAN, [facility] GLC [id number] 05/20/2012 07:51:00 05/20/2012 07:51 :00 DIS Outpatient JUANITO PHELAN, [facility] GLC [id number] 05/12/2012 15:10:00 05/14/2012 17:30 :00 DIS Inpatient JUANITO PHELAN, [facility] NS1 [id number] 05/12/2012 13:09:00 05/12/2012 13:09 :00 DIS Outpatient JUANITO PHELAN, [facility] OTHER [id number] 05/05/2012 08:05:00 05/05/2012 08:05 :00 DIS Outpatient JUANITO PHELAN, [facility] GLC [id number] 04/28/2012 07:41:00 04/28/2012 07:41 :00 DIS Outpatient JUANITO PHELAN, [facility] [id number] 04/25/2012 09:03:00 04/25/2012 09:03 :00 DIS Outpatient JUANITO PHELAN, [facility] [id number] 04/21/2012 06:34:00 04/21/2012 06:34 :00 DIS Outpatient JUANITO PHELAN, [facility] [id number] 04/07/2012 14:25:00 04/14/2012 17:00 :00 DIS Inpatient JUANITO PHELAN, [facility] NS1 [id number] 04/10/2012 10:19:00 04/10/2012 23:59 :59 CLS Emergency JUANITO PHELAN [facility] [id number] 04/10/2012 10:19:00 04/10/2012 23:59 :59 [facility] [id number] 04/10/2012 10:19:00 04/10/2012 23:59 :59 CLS Outpatient JUANITO PHELAN [facility] [id number] 04/10/2012 10:19:00 04/10/2012 23:59 :59 CLS Outpatient JUANITO PHELAN, [facility] OTHER [id number] 04/10/2012 10:19:00 04/10/2012 23:59 :59 CLS Emergency FREDY HARRINGTON MD [id number] 04/10/2012 10:19:00 04/10/2012 23:59 :59 CLS Outpatient JUANITO PHELAN [facility] [id number] 04/07/2012 12:40:00 04/07/2012 14:25 :00 DIS Emergency JUANITO PHELAN, [facility] ER [id number] 04/07/2012 13:00:00 04/07/2012 13:00 :00 DIS Outpatient JUANITO PHELAN, [facility] OTHER [id number] 04/07/2012 12:28:00 04/07/2012 12:28 :00 DIS Emergency JUANITO PHELAN, [facility] ER [id number] 01/27/2012 11:25:00 01/27/2012 23:59 :59 CLS Outpatient KRISTIN SOLOMON MD [id number] 01/26/2012 23:45:00 01/26/2012 23:59 :59 CLS Outpatient KRISTIN SOLOMON MD [id number] 01/26/2012 23:00:00 01/26/2012 23:59 :59 CLS Emergency KRISTIN SOLOMON MD [id number] 01/26/2012 22:26:00 01/26/2012 23:59 :59 CLS Outpatient KRISTIN SOLOMON MD [id number] 01/16/2012 15:55:00 01/16/2012 23:59 :59 CLS Outpatient KRISTIN SOLOMON MD [id number] 01/16/2012 14:50:00 01/16/2012 23:59 :59 CLS Outpatient FREDY HARRINGTON MD [id number] 01/16/2012 14:21:00 01/16/2012 23:59 :59 CLS Outpatient FREDY HARRINGTON MD [id number] 01/16/2012 13:57:00 01/16/2012 23:59 :59 CLS Outpatient FREDY HARRINGTON MD [id number] 01/01/2012 15:52:00 01/01/2012 23:59 :59 CLS Outpatient KRISTIN SOLOMON MD [id number] 12/14/2011 08:03:00 12/14/2011 23:59 :59 CLS Outpatient KRISTIN SOLOMON MD [id number] 12/14/2011 08:03:00 12/14/2011 23:59 :59 CLS Outpatient KRISTIN SOLOMON MD [id number] 12/07/2011 12:06:00 12/07/2011 23:59 :59 CLS Outpatient KRISTIN SOLOMON MD [id number] 12/03/2011 11:06:00 12/03/2011 23:59 :59 CLS Outpatient KRISTIN SOLOMON MD [id number] 11/27/2011 12:00:00 11/27/2011 23:59 :59 CLS Outpatient ANDRES DECKER MD [id number] 11/26/2011 18:16:00 11/26/2011 23:59 :59 CLS Outpatient KRISTIN SOLOMON MD [id number] 11/22/2011 09:45:00 11/22/2011 23:59 :59 CLS Outpatient KRISTIN SOLOMON MD [id number] 11/22/2011 09:45:00 11/22/2011 23:59 :59 CLS Outpatient KRISTIN SOLOMON MD [id number] 11/08/2011 16:25:00 11/08/2011 23:59 :59 CLS Outpatient KRISTIN SOLOMON MD [id number] 11/08/2011 15:05:00 11/08/2011 23:59 :59 CLS Emergency KRISTIN SOLOMON MD [id number] 11/08/2011 14:40:00 11/08/2011 23:59 :59 CLS Outpatient KRISTIN SOLOMON MD [id number] 11/08/2011 14:22:00 11/08/2011 23:59 :59 CLS Outpatient JOANNA ISIDRO MD [id number] 10/13/2011 23:00:00 10/13/2011 23:59 :59 CLS Outpatient KRISTIN SOLOMON MD [id number] 10/13/2011 22:15:00 10/13/2011 23:59 :59 CLS Emergency KRISTIN SOLOMON MD [id number] 10/10/2011 14:53:00 10/10/2011 23:59 :59 CLS Outpatient KRISTIN SOLOMON MD [id number] 09/30/2011 10:35:00 09/30/2011 23:59 :59 CLS Emergency KRISTIN SOLOMON MD [id number] 09/30/2011 10:35:00 09/30/2011 23:59 :59 CLS Outpatient KEIKO SEVERINO [id number] 09/04/2011 08:54:00 09/04/2011 23:59 :59 CLS Outpatient KRISTIN SOLOMON MD [id number] 09/03/2011 09:00:00 09/03/2011 23:59 :59 CLS Outpatient KRISTIN SOLOMON MD [id number] 09/02/2011 08:52:00 09/02/2011 23:59 :59 CLS Outpatient KRISTIN SOLOMON MD [id number] 09/01/2011 08:28:00 09/01/2011 23:59 :59 CLS Outpatient FREDY HARRINGTON MD [id number] 08/31/2011 09:03:00 08/31/2011 23:59 :59 CLS Outpatient KRISTIN SOLOMON MD [id number] 08/30/2011 08:55:00 08/30/2011 23:59 :59 CLS Outpatient KRISTIN SOLOMON MD [id number] 08/29/2011 08:51:00 08/29/2011 23:59 :59 CLS Outpatient KRISTIN SOLOMON MD [id number] 08/28/2011 14:42:00 08/28/2011 23:59 :59 CLS Outpatient KRISTIN SOLOMON MD [id number] 08/20/2011 15:06:00 08/20/2011 23:59 :59 CLS Outpatient KRISTIN SOLOMON MD [id number] 07/26/2011 11:30:00 07/26/2011 23:59 :59 CLS Outpatient KRISTIN SOLOMON MD [id number] 07/26/2011 11:30:00 07/26/2011 23:59 :59 CLS Outpatient KRISTIN SOLOMON MD [id number] 07/12/2011 10:00:00 07/12/2011 23:59 :59 CLS Outpatient KRISTIN SOLOMON MD [id number] 07/12/2011 10:00:00 07/12/2011 23:59 :59 CLS Outpatient KRISTIN SOLOMON MD [id number] 07/03/2011 15:00:00 07/03/2011 23:59 :59 CLS Outpatient KRISTIN SOLOMON MD [id number] 06/28/2011 12:15:00 06/28/2011 23:59 :59 CLS Outpatient KRISTIN SOLOMON MD [id number] 06/28/2011 12:15:00 06/28/2011 23:59 :59 CLS Outpatient KRISTIN SOLOMON MD [id number] 05/31/2011 08:19:00 05/31/2011 23:59 :59 CLS Outpatient KRISTIN SOLOMON MD [id number] 05/29/2011 16:02:00 05/29/2011 23:59 :59 CLS Outpatient KRISTIN SOLOMON MD [id number] 05/21/2011 23:20:00 05/21/2011 23:59 :59 CLS Outpatient KRISTIN SOLOMON MD [id number] 05/20/2011 23:20:00 05/20/2011 23:59 :59 CLS Emergency KRISTIN SOLOMON MD [id number] 05/20/2011 23:20:00 05/20/2011 23:59 :59 CLS Outpatient ESTEFANIA CUETO DO [id number] 05/20/2011 22:53:00 05/20/2011 23:59 :59 CLS Outpatient ESTEFANIA CUETO DO [id number] 05/07/2011 08:10:00 05/07/2011 23:59 :59 CLS Emergency KRISTIN SOLOMON MD [id number] 05/07/2011 07:40:00 05/07/2011 23:59 :59 CLS Outpatient KRISTIN SOLOMON MD [id number] 05/06/2011 15:45:00 05/06/2011 23:59 :59 CLS Emergency KRISTIN SOLOMON MD [id number] 05/06/2011 15:45:00 05/06/2011 23:59 :59 CLS Outpatient FREDY HARRINGTON MD [id number] 05/06/2011 15:23:00 05/06/2011 23:59 :59 CLS Outpatient FREDY HARRINGTON MD [id number] 05/01/2011 09:30:00 05/01/2011 23:59 :59 CLS Outpatient ANDRES DECKER MD [id number] 03/21/2011 16:40:00 03/21/2011 23:59 :59 CLS Outpatient KRISTIN SOLOMON MD [id number] 03/21/2011 15:10:00 03/21/2011 23:59 :59 CLS Outpatient KRISTIN SOLOMON MD [id number] 02/05/2011 18:00:00 02/05/2011 23:59 :59 CLS Outpatient KRISTIN SOLOMON MD [id number] 01/26/2011 14:10:00 01/26/2011 23:59 :59 CLS Outpatient KRISTIN SOOLMON MD [id number] 12/28/2010 16:13:00 12/28/2010 23:59 :59 CLS Outpatient KRISTIN SOLOMON MD [id number] 12/06/2010 15:15:00 12/06/2010 23:59 :59 CLS Outpatient KRISTIN SOLOMON MD [id number] 11/29/2010 13:25:00 11/29/2010 23:59 :59 CLS Outpatient KRISTIN SOLOMON MD [id number] 11/23/2010 15:10:00 11/23/2010 23:59 :59 CLS Outpatient KRISTIN SOLOMON MD [id number] 11/13/2010 13:27:00 11/13/2010 23:59 :59 CLS Outpatient JOANNA ISIDRO MD [id number] 11/13/2010 12:00:00 11/13/2010 23:59 :59 CLS Emergency KRISTIN SOLOMON MD [id number] 10/24/2010 10:30:00 10/24/2010 23:59 :59 CLS Outpatient ANDRES DECKER MD [id number] 09/25/2010 11:07:00 09/25/2010 23:59 :59 CLS Outpatient KRISTIN SOLOMON MD [id number] 09/25/2010 11:05:00 09/25/2010 23:59 :59 CLS KRISTIN Alanis MD [id number] 09/25/2010 10:42:00 09/25/2010 23:59 :59 CLS Outpatient KRISTIN SOLOMON MD [id number] 09/12/2010 09:30:00 09/12/2010 23:59 :59 CLS Outpatient DARA AGUSTIN MD R [id number] 2010 08:40:00 2010 23:59 :59 CLS Outpatient DARA AGUSTIN MD R [id number] 07/12/2010 09:32:00 07/12/2010 23:59 :59 CLS Outpatient KRISTIN SOLOMON MD [id number] 07/11/2010 10:50:00 07/11/2010 23:59 :59 CLS Outpatient DARA AGUSTIN MD R [id number] 06/07/2010 13:45:00 06/07/2010 23:59 :59 CLS Emergency KRISTIN SOLOMON MD [id number] 06/07/2010 13:20:00 06/07/2010 23:59 :59 CLS Outpatient KRISTIN SOLOMON MD [id number] 06/01/2010 15:58:00 06/01/2010 23:59 :59 CLS Outpatient KRISTIN SOLOMON MD [id number] 04/05/2010 15:07:00 04/05/2010 23:59 :59 CLS Outpatient KRISTIN SOLOMON MD [id number] 02/24/2010 12:57:00 02/24/2010 23:59 :59 CLS Outpatient KRISTIN SOLOMON MD [id number] 01/27/2012 01:25:00 Inpatient KRISTIN SOLOMON MD [id number] 11/08/2011 16:50:00 Inpatient KRISTIN SOLOMON MD [id number] 05/21/2011 01:00:00 Inpatient KRISTIN SOLOMON MD [id number] 03/23/2011 09:30:00 Inpatient KRISTIN SOLOMON MD [id number] 11/13/2010 13:45:00 Inpatient KRISTIN SOLOMON MD [id number] 05/10/2010 15:50:00 Inpatient MARQUITA PHELAN, EBEN Kaufman [id number] 05/03/2010 17:10:00 Inpatient NIKOLE PHELAN, DARA [place] [id number] 03/07/2016 11:12:35 23:59:59 CLS Outpatient Cynthia Noriega [id number] 10/21/2015 13:20:32 10/21/2015 13:2 0:33 Outpatient [facility] [id number] 01/18/2015 13:57:00 23:59:00 DIS Outpatient Vinnie Monterroso Via [facility] ENT PO 1 WK L TYMPANO MASTOIDECT JESSICA [id number] 01/10/2015 06:12:00 15:22:00 DIS Outpatient Vinnie Monterroso Via [facility] Surgery SURGERY [id number] 12/27/2014 13:35:00 23:59:00 DIS Outpatient Vinnie Monterroso [facility] ENT RCK 1 MO SINUS [id number] 12/01/2014 15:42:00 23:59:00 DIS Outpatient Vinnie Monterroso [facility] ENT po ess [id number] 11/26/2014 07:46:00 11:39:00 DIS Outpatient Vinnie Monterroso [facility] Surgery SURGERY [id number] 10/27/2014 14:29:00 23:59:00 DIS Outpatient Michelle Duque V ia [facility] Audio Michelle - Medicare - Regehr [id number] 10/27/2014 12:42:00 23:59:00 DIS Outpatient Vinnie Monterroso [facility] ENT CHECK EARS AND SINUS [id number] 10/17/2018 17:45:00 10/17/2018 23:59: 59 CLS Outpatient GAURAV ALAN L[facility] [id number] 10/17/2018 17:45:00 Document Registration [id number] 05/24/2019 11:25:00 10:58:00 DIS Inpatient ROZ WILKINS MD Via [facility] 4TH FALL [id number] 12/04/2018 15:34:00 23:59:59 CLS Outpatient FIORELLA ROQUE MD [facility] ER FS SOB [id number] 09/03/2018 10:56:00 12:55:00 DIS Inpatient ROZ WILKINS MD [facility] 4TH SEPTIC SHOCK [id number] 07/11/2018 10:27:00 12:30:00 DIS Emergency SOMMER STEFF CLARK [facility] ER FS SOB [id number] 05/27/2018 19:36:00 13:35:00 DIS Inpatient FIORELLA ROQUE MD [facility] 4TH RIGHT MIDDLE LOBE PNEUM ONIA; COPD W/ EXACERBATION [id number] 05/20/2018 10:40:00 23:59:59 CLS Outpatient BELLA KARIMI APRN [facility] WOUNDCARE [id number] 05/16/2018 10:38:00 23:59:59 CLS Outpatient BELLA KARIMI APRN [facility] RAD FS [id number] 05/06/2018 11:03:00 23:59:59 CLS Outpatient BELLA KARIMI [employer] [facility] WOUNDCARE [id number] 04/29/2018 12:29:00 23:59:59 CLS Outpatient BELLA KARIMI [employer] [facility] RAD PRESSURE [facility] [place] [facility] [id number] 04/29/2018 10:44:00 23:59:59 CLS Outpatient BELLA KARIMI [employer] [facility] WOUNDCARE [id number] 04/01/2018 08:09:00 23:59:59 CLS Outpatient BELLA KARIMI [employer] [facility] WOUNDCARE [id number] 09/06/2019 22:10:[address] Emergency MAINOR JACKSON DO [facility] ER FS WEAKNESS [id number] 08/29/2016 00:00:00 Document Registration [id number] 08/29/2016 00:00:00 Document Registration [id number] 01/27/2012 22:27:00 02/22/20 15:54:00 DIS Inpatient Curtis Melton MD Via [facility] on [address] [employer] 11/16/2014 11:00:12 ACT Document Registration [id number] 05/19/2015 10:50:13 05/19/2015 23:59: 59 CLS Outpatient Marco Oh [id number] 07/06/2015 15:08:00 07/06/2015 16: 08:00 DIS LO BACANI, KRISTIN C [facility] OT [id number] 07/05/2015 11:12:00 07/05/2015 12: 12:00 DIS LO BACANI, KRISTIN C [facility] OT [id number] 04/11/2015 10:30:00 04/11/2015 11: 30:00 DIS LO BACANI, KRISTIN C [facility] OT [id number] 11/03/2014 10:41:00 11/03/2014 11: 41:00 DIS LO BACANI, KRISTIN C [facility] OT [id number] 08/19/2014 12:40:00 08/19/2014 13: 40:00 DIS LO BACANI, KRISTIN C [facility] OT
[2019-09-06] MEDS ORDERED: ACETAMINOPHEN 650 MG SUPP (TYLENOL) PR ONE (22:30)
[2019-09-06] MEDS ORDERED: NS IV 500 ML 500 ML IV SCH ×2 (22:30→23:45)
[2019-09-06] MEDS ORDERED: ACETAMINOPHEN 325 MG SUPP (TYLENOL) PR PRN (22:30)
[2019-09-06 22:57] LABS: BASOPHILS % (AUTO) 0 % (0-10); EOSINOPHILS % (AUTO) 0 % (0-10); HEMATOCRIT 42 % (40-54); HEMOGLOBIN 13.5 G/DL (13.3-17.7); LYMPHOCYTES # (AUTO) 0.2 X 10^3 (1.0-4.0); LYMPHOCYTES % (AUTO) 2 % (12-44); MEAN CORPUSCULAR HEMOGLOBIN 29 PG (25-34); MEAN CORPUSCULAR HGB CONC 32 G/DL (32-36); MEAN CORPUSCULAR VOLUME 89 FL (80-99); MEAN PLATELET VOLUME 11.4 FL (7.4-10.4); MONOCYTES # (AUTO) 0.6 X 10^3 (0.0-1.0); MONOCYTES % (AUTO) 5 % (0-12); NEUTROPHILS # (AUTO) 12.6 X 10^3 (1.8-7.8); NEUTROPHILS % (AUTO) 93 % (42-75); PLATELET COUNT 229 10^3/uL (130-400); RED CELL DISTRIBUTION WIDTH 17.1 % (10.0-14.5); WHITE BLOOD COUNT 13.6 10^3/uL (4.3-11.0)
[2019-09-06 23:16] LABS: ALANINE AMINOTRANSFERASE 64 U/L (0-55); ALBUMIN 3.5 GM/DL (3.2-4.5); ALKALINE PHOSPHATASE 411 U/L (40-136); BILIRUBIN,TOTAL 3.8 MG/DL (0.1-1.0); BUN/CREATININE RATIO 25; CALCIUM 9.3 MG/DL (8.5-10.1); CARBON DIOXIDE 23 MMOL/L (21-32); CHLORIDE 99 MMOL/L (98-107); CREATININE SERUM 1.08 MG/DL (0.60-1.30); GFR ESTIMATED > 60; GLUCOSE 106 MG/DL (70-105); POTASSIUM 5.5 MMOL/L (3.6-5.0); SODIUM 138 MMOL/L (135-145); TOTAL PROTEIN 6.9 GM/DL (6.4-8.2)
[2019-09-06 23:19] LABS: LYMPHOCYTES % (MANUAL) 2 %; MONOCYTES % (MANUAL) 1 %; NEUTROPHILS % (MANUAL) 97 %
[2019-09-06 23:20] LABS: PLATELET CLUMPS OCCASIONAL; POIKILOCYTOSIS SLIGHT; POLYCHROMASIA SLIGHT
[2019-09-06 23:21] LABS: TOXIC GRANULATION/VACUOLAZATIO 4+
[2019-09-06 23:22] LABS: SMEAR SCAN COMMENT LARGE PLT
[2019-09-06] MEDS ORDERED: PIPERACILLIN SODIUM/TAZOBACTAM 4.5 GM in NS (IVPB) 100 ML IV ONE (23:45)
[2019-09-06] MEDS ORDERED: KETOROLAC 30 MG/ML VIAL IVP ONE (23:45)
[2019-09-06] MEDS ORDERED: VANCOMYCIN INJECTION 1,000 MG in NS (IVPB) 250 ML IV ONE (23:45)
[2019-09-07 00:01] LABS: BILIRUBIN,URINE 2+ (NEGATIVE); CLARITY,URINE CLOUDY; COLOR,URINE DARK YELLOW; GLUCOSE, URINE (UA) NEGATIVE (NEGATIVE); KETONES,URINE NEGATIVE (NEGATIVE); LEUKOCYTE ESTERASE ,URINE TRACE (NEGATIVE); NITRITE,URINE NEGATIVE (NEGATIVE); PH,URINE 7.5 (5-9); PROTEIN,URINE TRACE (NEGATIVE)
[2019-09-07 00:02] LABS: BACTERIA,URINE LARGE /HPF; WBC,URINE 25-50 /HPF
--- OUTSIDE RECORDS SUMMARY | 2019-09-07 01:25 | XMS REPORT | Continuity of Care Document ---
Author Organization Unknown Address Unknown Phone Unavailable Allergies Active Description Code Type Severity Reaction Onset Reported/Identified Relationship to Patient Clinical Status Yes No Known Drug Allergy [id number] Drug Allergy N/A N/A Confi rmed but [...] N/A 10/19/2013 Erroneous Yes No known allergies [id number] Drug Allergy N/A N/A 10/19/2013 Confirmed but inactive Yes No Known Drug Allergies 42919020 ND N/A N/A 07/07/2015 Confirmed or Verified Yes No Known Drug Allergy Drug Allergy Unknown N/A 01/31/2016 Yes No Known Drug Category Allergy Drug Allergy Unknown N/A 01/31/2016 Yes No Known Environment Allergy Environmental Allergy Unknown N/A 01/31/2016 Yes No Known Food Allergy Food Allergy Unknown N/A 01/31/2016 Yes No Known Drug Allergies [id number] Drug Allergy Unknown N/A 05/24/2019 Medications Medication [...] Lyndsey 303. 90 ALCOH DEP NEC/NOS-UNSPEC 05/10/2010 NIKLOE PHELAN DARA R Lyndsey 311 DEPRESSIVE DISORDER [...] ALCOHOL ABUSE-UNSPEC 10/24/2010 ANDRES DECKER MD R Lyndsey 305. 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 51 DEHYDRATION 05/21/2011 ESTEFANIA CUETO DO D 305. 01 ALCOHOL ABUSE-CONTINUOUS 05/21/2011 ESTEFANIA CUETO DO D 780. 09 ALTERATION/CONSCIOUSNESS 05/21/2011 ESTEFANIA CUETO DO Kristopher D 959. 8 INJURY FOREIGN EXCHANGE TRADER SITE/SITE NEC 05/21/2011 ESTEFANIA CUETO DO D 994. 9 EFFECT EXTERNAL CAUS NEC 05/21/2011 ESTEFANIA CUETO DO Kristopher D E904 .3 EXPOSURE NEC 05/21/2011 KRISTIN SOLOMON MD 276.51 DEHYDRATION 05/21/2011 KRISTIN SOLOMON MD 305.01 ALCOHOL ABUSE-CONTINUOUS 05/21/2011 KRISTIN SOLOMON MD 780.09 ALTERATION/CONSCIOUSNESS 05/21/2011 KRISTIN SOLOMON MD 95 9.8 INJURY FOREIGN EXCHANGE TRADER SITE/SITE NEC 05/21/2011 KRISTIN SOLOMON MD 99 [...] SOLOMON MD 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 07/12/2011 KRISTNI SOLOMON MD 722.52 LUMB/LUMBOSAC DISC DEGEN 07/12/2011 [...] MD R Lyndsey 414. 00 CAD UNS VESSEL/NUIQSUT/GR 11/27/2011 ANDRES DECKER MD 530. 81 ESOPHAGEAL [...] 12/14/2011 KRISTIN SOLOMON MD 414.00 CAD UNS VESSEL/NUIQSUT/GR 12/14/2011 KRISTIN SOLOMON MD 58 6 RENAL FAILURE NOS 12/14/2011 KRISTIN SOLOMON MD 72 9.5 PAIN IN LIMB 12/14/2011 KRISTIN SOLOMON MD 786.05 SHORTNESS OF BREATH 12/14/2011 KRISTIN SOLOMON MD 786.50 CHEST PAIN NOS 12/14/2011 KRISTIN SOLOMON MD 414.00 CAD UNS VESSEL/NUIQSUT/GR 12/14/2011 KRISTIN SOLOMON MD 786.50 CHEST PAIN [...] Melton MD Final 995.92 SEVERE SEPSIS 01/27/2012 Curtsi Metlon MD Final 996.64 INFECT D/T URETHRAL CATH [...] SOLOMON MD 28 5.9 ANEMIA NOS 04/25/2012 KIRSTIN SOLOMON MD 599.70 HEMATURIA NOS 04/25/2012 KRISTIN [...] LONG T 09/24/2012 KRISTIN SOLOMON MD V58.69 COPYING MACHINE MECHANIC MEDICATION USE 10/08/2012 KRISTIN SOLOMON MD 40 [...] MULTIPLE SCLEROSIS 02/02/2013 KRISTIN SOLOMON MD V58.69 COPYING MACHINE MECHANIC MEDICATION USE 02/06/2013 KRISTIN SOLOMON MD V58.69 RETIREMENT MEDICATION USE 02/10/2013 KRISTIN SOLOMON MD 275.41 HYPOCALCEMIA 02/10/2013 KRISTIN SOLOMON MD V58.69 COPYING MACHINE MECHANIC MEDICATION USE 02/11/2013 KRISTIN SOLOMON MD 04 1.6 PROTEUS INFECTION NOS 02/11/2013 KRISTIN SOLOMON MD 04 1.7 PSEUDOMONAS INFECT NOS 02/11/2013 KRISTIN SOLOMON MD 388.70 OTALGIA NOS 02/11/2013 KRISTIN SOLOMON MD 38 8.8 DISORDERS OF EAR NEC 02/12/2013 KRISTIN SOLOMON MD V58.69 COPYING MACHINE MECHANIC MEDICATION USE 02/16/2013 KRISTIN SOLOMON MD 34 0 MULTIPLE SCLEROSIS 02/16/2013 KRISTIN SOLOMON MD 40 1.9 HYPERTENSION NOS 02/16/2013 KRISTIN SOLOMON MD V58.69 RETIREMENT MEDICATION USE 02/19/2013 KRISTIN SOLOMON MD V58.61 ANTICOAGULANT USE LONG T 02/19/2013 KRISTIN SOLOMON MD V58.69 COPYING MACHINE MECHANIC MEDICATION USE 02/20/2013 KRISTIN SOLOMON MD V58.61 ANTICOAGULANT USE LONG T 02/20/2013 KRISTNI SOLOMON MD V58.69 RETIREMENT MEDICATION USE 02/21/2013 KRISTIN SOLOMON MD V58.61 [...] LONG T 05/25/2013 KRISTIN SOLOMON MD V58.69 COPYING MACHINE MECHANIC MEDICATION USE 06/02/2013 KRISTIN SOLOMON MD V58.61 [...] SOLOMON 782.3 Edema, localized, NOS 09/09/2014 KRISTIN SOOLMON MD 49 6 CHR AIRWAY OBSTRUCT NEC [...] 07/07/2015 JOANNA ISIDRO MD Z79.89 9 Other mcfp (current) drug therapy 07/19/2015 EBEN JUÁREZ MD 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 Hari, Cynthia [...] SACRAL REGION, STAGE 3 05/19/2018 BELLA KARIMI TRIAL EXAMINER Ot L89.153 PRESSURE ULCER OF SACRAL REGION, STAGE 3 05/19/2018 BELLA KARIMI R TRIAL EXAMINER Ot Z96.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, BILATE 05/22/2018 TREV BELLA R TRIAL EXAMINER Ot L89.153 PRESSURE ULCER OF SACRAL REGION, STAGE 3 05/23/2018 TREV BELLA R TRIAL EXAMINER Ot L89.153 PRESSURE ULCER OF SACRAL REGION, STAGE 3 05/27/2018 TREV BELLA R TRIAL EXAMINER Ot L89.153 PRESSURE ULCER OF SACRAL REGION, STAGE 3 05/27/2018 TREV BELLA R TRIAL EXAMINER Ot L89.153 PRESSURE ULCER OF SACRAL REGION, STAGE 3 05/27/2018 TREV BELLA R TRIAL EXAMINER Ot L89.153 PRESSURE ULCER OF SACRAL REGION, STAGE 3 05/27/2018 BELLA KARIMI R TRIAL EXAMINER Ot Z53.8 PROCEDURE AND TREATMENT NOT CARRIED OUT 05/27/2018 TREV BELLA R TRIAL EXAMINER Ot L89.153 PRESSURE ULCER OF SACRAL REGION, STAGE 3 05/27/2018 TREV BELLA R TRIAL EXAMINER Ot L89.153 PRESSURE ULCER OF SACRAL REGION, STAGE 3 05/27/2018 TREV BELLA R TRIAL EXAMINER Ot Z96.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, BILATE 05/27/2018 TREV BELLA R TRIAL EXAMINER Ot L89.153 PRESSURE ULCER OF SACRAL REGION, STAGE 3 05/29/2018 TREV BELLA R TRIAL EXAMINER Ot L89.153 PRESSURE ULCER OF SACRAL REGION, STAGE 3 05/29/2018 BELLA KARIMI TRIAL EXAMINER Ot Z96.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, BILATE 05/30/2018 FIORELLA ROQUE MD Ot A41 .9 SEPSIS, UNSPECIFIED ORGANISM 05/30/2018 FIORELLA ROQUE MD Ot E83.42 HYPOMAGNESEMIA 05/30/2018 FIORELLA ROQUE MD Ot G35 MULTIPLE SCLEROSIS 05/30/2018 FIORELLA ROQUE MD Ot G89 .4 CHRONIC PAIN SYNDROME 05/30/2018 FIORELLA ROQUE MD Ot I25.10 ATHSCL HEART DISEASE OF [place] CORONARY 05/30/2018 FIORELLA ROQUE MD Ot I48 [...] NODULE 05/30/2018 FIORELLA ROQUE MD, Ot Z79.01 RETIREMENT (CURRENT) USE OF ANTICOAGULANT 05/30/2018 FIORELLA ROQUE [...] MD Ot I25.10 ATHSCL HEART DISEASE OF [place] CORONARY 05/31/2018 FIORELLA ROQUE MD Ot I48 [...] NODULE 05/31/2018 FIORELLA ROQUE MD Ot Z79.01 COPYING MACHINE 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 (CURRENT) USE OF ANTICOAGULANT 05/31/2018 FIORELLA ROQUE [...] MD Ot I25.10 ATHSCL HEART DISEASE OF [place] CORONARY 06/01/2018 FIORELLA ROQUE MD Ot I48 [...] NODULE 06/01/2018 FIORELLA ROQUE MD Ot Z79.01 RETIREMENT (CURRENT) USE OF ANTICOAGULANT 06/01/2018 FIORELLA ROQUE [...] MD Ot I25.10 ATHSCL HEART DISEASE OF [place] CORONARY 06/02/2018 FIORELLA ROQUE MD Ot I48 [...] NODULE 06/02/2018 FIORELLA ROQUE MD Ot Z79.01 RETIREMENT (CURRENT) USE OF ANTICOAGULANT 06/02/2018 FIORELLA ROQUE [...] G81.91 HEMIPLEGIA, UNSPECIFIED AFFECTING RIGHT 06/02/2018 FIORELLA ROQEU MD Ot G81.94 HEMIPLEGIA, UNSPECIFIED AFFECTING LEFT N 06/02/2018 FIORELLA ROQUE MD Ot G89 .4 CHRONIC PAIN SYNDROME 06/02/2018 FIORELLA ROQUE MD Ot I25.10 ATHSCL HEART DISEASE OF [place] CORONARY 06/02/2018 FIORELLA ROQUE MD Ot I48 [...] NODULE 06/02/2018 FIORELLA ROQUE MD Ot Z79.01 RETIREMENT (CURRENT) USE OF ANTICOAGULANT 06/02/2018 FIORELLA ROQUE [...] DEPENDENCE ON SUPPLEMENTAL OXYGEN 06/05/2018 BELLA KARIMI TRIAL EXAMINER Ot L89.153 PRESSURE ULCER OF SACR[place] REGION, STAGE 3 06/05/2018 BELLA KARIMI TRIAL EXAMINER Ot Z96.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, BILATE 06/10/2018 BELLA KARIMI TRIAL EXAMINER Ot L89.153 PRESSURE ULCER OF SACRAL REGION, STAGE 3 06/19/2018 BELLA KARIMI APRN Ot L89.153 PRESSURE ULCER OF SACRAL REGION, STAGE 3 06/19/2018 BELLA KARIMI TRIAL EXAMINER Ot Z96.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, BILATE 06/23/2018 BELLA KARIMI TRIAL EXAMINER Ot L89.153 PRESSURE ULCER OF SACRAL REGION, STAGE 3 07/03/2018 BELLA KARIMI APRN Ot L89.153 PRESSURE ULCER OF SACRAL REGION, STAGE 3 07/03/2018 BELLA KARIMI TRIAL EXAMINER Ot L89.153 PRESSURE ULCER OF SACRAL REGION, STAGE 3 07/03/2018 BELLA KARIMI TRIAL EXAMINER Ot L89.153 PRESSURE ULCER OF SACRAL REGION, STAGE 3 07/03/2018 BELLA KARIMI APRN Ot Z53.8 PROCEDURE AND TREATMENT NOT CARRIED OUT 07/03/2018 BELLA KARIMI TRIAL EXAMINER Ot L89.153 PRESSURE ULCER OF SACRAL REGION, STAGE 3 07/03/2018 BELLA KARIMI TRIAL EXAMINER Ot L89.153 PRESSURE ULCER OF SACRAL REGION, STAGE 3 07/03/2018 BELLA KARIMI TRIAL EXAMINER Ot Z96.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, BILATE 07/03/2018 BELLA KARIMI TRIAL EXAMINER Ot L89.153 PRESSURE ULCER OF SACRAL REGION, STAGE 3 07/11/2018 SOMMER DO, STEFF L Ot G35 MULTIPLE SCLEROSIS 07/11/2018 SOMMER DO, STEFF L Ot J44.9 CHRONIC OBSTRUCTIVE PULMONARY DISEASE, U 07/11/2018 SOMMER DO, STEFF L Ot R06.2 WHEEZING 07/11/2018 SOMMER DO, STEFF L Ot Z79.0 1 RETIREMENT (CURRENT) USE OF ANTICOAGULANT 07/11/2018 SOMMER DO, STEFF L Ot Z79.5 1 RETIREMENT (CURRENT) USE OF INHALED STERO 07/11/2018 SOMMER DO, STEFF L Ot Z79.5 2 RETIREMENT (CURRENT) USE OF SYSTEMIC STER 07/11/2018 SOMMER [...] SOMMER DO, STEFF L Ot Z79.0 1 RETIREMENT (CURRENT) USE OF ANTICOAGULANT 07/17/2018 SOMMER DO, STEFF L Ot Z79.5 1 COPYING MACHINE MECHANIC (CURRENT) USE OF INHALED STERO 07/17/2018 SOMEMR DO, STEFF L Ot Z79.5 2 RETIREMENT (CURRENT) USE OF SYSTEMIC STER 07/17/2018 SOMMER [...] BREATHING 12/08/2018 FIORELLA ROQUE MD Ot Z79.01 COPYING MACHINE MECHANIC (CURRENT) USE OF ANTICOAGULANT 12/08/2018 FIORELLA ROQUE MD Ot Z79.51 COPYING MACHINE MECHANIC (CURRENT) USE OF INHALED STERO 12/08/2018 FIORELLA [...] 05/25/2019 ROZ WILKINS MD Ot Z79. 01 RETIREMENT (CURRENT) USE OF ANTICOAGULANT 05/25/2019 ROZ WILKINS MD Ot Z79.899 OTHER COPYING MACHINE MECHANIC (CURRENT) DRUG THERAPY 05/25/2019 ROZ WILKINS MD [...] 05/25/2019 ROZ WILKINS MD Ot Z79. 01 COPYING MACHINE MECHANIC (CURRENT) USE OF ANTICOAGULANT 05/25/2019 ROZ WILKINS MD Ot Z79.899 OTHER COPYING MACHINE MECHANIC (CURRENT) DRUG THERAPY 06/10/2019 ROZ WILKINS MD [...] 06/10/2019 ROZ WILKINS MD Ot Z79. 01 RETIREMENT (CURRENT) USE OF ANTICOAGULANT 06/10/2019 ROZ WILKINS MD Ot Z79.899 OTHER RETIREMENT (CURRENT) DRUG THERAPY 06/10/2019 ROZ WILKINS MD [...] 06/10/2019 ROZ WILKINS MD Ot Z79. 01 COPYING MACHINE MECHANIC (CURRENT) USE OF ANTICOAGULANT 06/10/2019 ROZ WILKINS MD Ot Z79.899 OTHER RETIREMENT (CURRENT) DRUG THERAPY Procedures Code Description [place] [address] ROUT INE VENIPUNCTURE RAMIRO SOLOMON MDO C 02/24/2010 40983 COMP REHEN METABOLIC PANEL RAMIRO SOLOMON MDO C 02/24/2010 85340 COMP LETE CBC W/AUTO DIFF WBC TEX SOLOMON MDWALDO C 02/24/2010 04086 CULT URE, BACTERIA, OTHER JUANITO PHELAN KRISTIN C 02/24/2010 45420 NUBIA I IDENTIFICATION, MOLD JUANITO PHELAN KRISTIN C 02/24/2010 24873 CULT URE TYPE, IMMUNOLOGIC JUANITO PHELAN KRISTIN C 02/24/2010 66126 SMEA R, GRAM STAIN JUANITO PHELAN KRISTIN C 02/24/2010 22338 ROUT INE VENIPUNCTURE KRISTIN SOLOMON MD C 04/05/2010 88923 COMP REHEN METABOLIC PANEL KRISTIN SOLOMON MD C 04/05/2010 80112 COMP LETE CBC W/AUTO DIFF WBC TEX SOLOMON MDWALDO C 04/05/2010 15073 CULT URE, BACTERIA, OTHER JUANITO PHELAN, [facility] 04/05/2010 53296 NUBIA I IDENTIFICATION, MOLD JUANITO PHELAN, [facility] 04/05/2010 85306 SMEA R, GRAM STAIN JUANITO PHELAN, [facility] 04/05/2010 82089 ROUT INE VENIPUNCTURE JUANITO PHELAN, [facility] 06/01/2010 39472 COMP REHEN METABOLIC PANEL JUANITO PHELAN, [facility] 06/01/[address] S MEAR W/DIFF WBC COUNT JUANITO PHELAN, [facility] 06/01/2010 30671 COMP LETE CBC, AUTOMATED JUANITO PHELAN, [facility] 06/01/2010 54558 ROUT INE VENIPUNCTURE JUANITO PHELAN, [facility] 06/07/2010 11251 CHES T X-RAY JUANITO PHELAN [facility] 06/07/2010 12578 X-RA Y EXAM OF RIBS JUANITO PHELAN, [facility] 06/07/2010 91602 X-RA Y EXAM OF PELVIS JUANITO PHELAN, [facility] 06/07/2010 94978 COMP REHEN METABOLIC PANEL JUANITO PHELAN [facility] 06/07/2010 [address]13 [address] S MEAR W/DIFF WBC COUNT JUANITO PHELAN, [facility] 06/07/2010 14393 COMP LETE CBC, AUTOMATED JUANITO PHELAN, [facility] 06/07/2010 52616 THER /PROPH/DIAG INJ, SC/IM JUANITO PHELAN, [facility] 06/07/2010 89197 POOJA GENCY DEPT VISIT JUANITO PHELAN, [facility] 06/07/2010 A0425 GROU ND OLINDA SOLOMON MD, [facility] 06/07/2010 A0429 BLS EMERGENCY JUANITO PHELAN, [facility] 06/07/2010 12928 OFFI CE/OUTPATIENT VISIT, MATTY AGUSTIN MD, [facility] [place] 07/11/2010 94338 META BOLIC PANEL TOTAL CA JUANITO PHELAN, [facility] 07/12/2010 57427 OFFI CE/OUTPATIENT VISIT, MATTY AGUSTIN MD, DARA [place] 2010 51246 X-RA Y EXAM OF HIP NIKOLE PHELAN, D[facility] [place] 09/12/2010 20151 OFFI CE/OUTPATIENT VISIT, MATTY AGUSTIN MD, DARA R 09/12/2010 28557 WITH DRAWAL OF ARTERIAL BLOOD JUANITO PHELAN [facility] 09/25/2010 45731 INSE RT TEMP BLADDER CATH JUANITO PHELAN [facility] 09/25/[address] H EAD/BRAIN W/O DYE JUANITO PHELAN [facility] 09/25/2010 63464 CHES T X-RAY JUANITO PHELAN [facility] 09/25/2010 11106 X-RA Y EXAM OF ABDOMEN JUANITO PHELAN [facility] 09/25/2010 90589 COMP REHEN METABOLIC PANEL JUANITO PHELAN [facility] 09/25/2010 89172 ASSA Y OF SALICYLATE JUANITO PHELAN [facility] 09/25/2010 04178 URIN ALYSIS, AUTO W/SCOPE JUANITO PHELAN [facility] 09/25/2010 22526 ASSA Y OF ACETAMINOPHEN JUANITO PHELAN [facility] 09/25/2010 90422 ASSA Y OF ETHANOL JUANITO PHELAN [facility] 09/25/2010 99417 ASSA Y OF CK (CPK) JUANITO PHELAN [facility] 09/25/2010 83032 CREAna M MORGAN, MB FRACTION JUANITO PHELAN [facility] 09/25/2010 04356 BLOO D GASES: PH, PO2 & PCO2 JUANITO PHELAN [facility] 09/25/2010 09451 NATR IURETIC PEPTIDE JUANITO PHELAN [facility] 09/25/2010 93426 ASSA Y OF TROPONIN, QUANT JUANITO PHELAN [facility] 09/25/2010 75780 COMP LETE CBC W/AUTO DIFF WBC JUANITO PHELAN [facility] 09/25/2010 12800 PROT HROMBIN TIME JUANITO PHELAN KRISTIN C 09/25/2010 56594 THRO MBOPLASTIN TIME, PARTIAL JUANITO PHELAN KRISTIN C 09/25/2010 70811 CULT URE AEROBIC IDENTIFY JUANITO PHELAN KRISTIN C 09/25/2010 70469 URIN E CULTURE/COLONY COUNT JUANITO PHELAN KRISTIN C 09/25/2010 29776 URIN E BACTERIA CULTURE JUANITO PHELAN KRISTIN C 09/25/2010 73304 MICR OBE SUSCEPTIBLE, DAVID JUANITO PHELAN KRISTIN C 09/25/2010 84771 ELEC TROCARDIOGRAM, TRACING JUANITO PHELAN, KRISTIN C 09/25/2010 76173 THER /PROPH/DIAG INJ, IV PUSH JUANITO PHELAN, KRISTIN C 09/25/2010 73574 TX/P RO/DX INJ NEW DRUG NILEON JUANITO PHELAN, [facility] 09/25/2010 37527 POOJA GENCY DEPT VISIT JUANITO PHELAN, KRISTIN C 09/25/2010 G0431 DRUG SCREEN SINGLE CLASS JUANITO PHELAN, KRISTIN C 09/25/2010 J1644 HEPA RIN INJECTION JUANITO PHELAN, KRISTIN C 09/25/2010 77409 ELEC TROCARDIOGRAM REPORT DWAINE PHELAN, JAONNA L 09/25/2010 A0425 GROU ND OLINDA SOLOMON MD, [facility] 09/25/2010 A0427 ALS1 EMERGENCY JUANITO PHELAN, [facility] 09/25/2010 74928 OFFI CE/OUTPATIENT VISIT, EST JERONIMO PHELAN, [facility] R 10/24/2010 05851 ROUT INE VENIPUNCTURE JUANITO PHELAN, KRISTIN C 11/13/2010 42137 CHES T X-RAY JUANITO PHELAN, KRISTIN C 11/13/2010 87786 COMP REHEN METABOLIC PANEL JUANITO PHELAN, KRISTIN C 11/13/2010 03982 URIN ALYSIS, AUTO W/SCOPE JUANITO PHELAN, KRISTIN C 11/13/2010 95918 ASSA Y OF CK (CPK) JUANITO PHELAN, KRISTIN C 11/13/2010 24517 CREA CATHY, MB FRACTION JUANITO PHELAN, KRISTIN C 11/13/2010 64043 NATR IURETIC PEPTIDE JUANITO PHELAN, KRISTIN C 11/13/2010 51660 ASSA Y OF TROPONIN, QUANT JUANITO PHELAN, KRISTIN C 11/13/2010 23112 COMP LETE CBC W/AUTO DIFF WBC JUANITO PHELAN, KRISTIN C 11/13/2010 53917 URIN E CULTURE/COLONY COUNT JUANITO PHELAN, KRISTIN C 11/13/2010 42614 CULT URE TYPE, IMMUNOLOGIC JUANITO PHELAN, KRISTIN C 11/13/2010 64431 IMMU NIZATION ADMIN JUANITO PHELAN, KRISTIN C 11/13/2010 76193 TD V ACCINE > 7, IM JUANITO PHELAN, [facility] 11/13/2010 76097 ELEC TROCARDIOGRAM, TRACING JUANITO PHELAN, [facility] 11/13/2010 89373 POOJA GENCY DEPT VISIT JUANITO PHELAN, [facility] 11/13/2010 G0431 DRUG SCREEN SINGLE CLASS JUANITO PHELAN, [facility] 11/13/2010 25383 ELEC TROCARDIOGRAM REPORT DWAINE , JOANNA Summers 11/13/2010 79431 ROUT INE VENIPUNCTURE JUANITO PHELAN, [facility] 11/23/2010 90581 COMP REHEN METABOLIC PANEL JUANITO PHELAN, [facility] 11/23/2010 98871 NATR IURETIC PEPTIDE JUANITO PHELAN, [facility] 11/23/2010 41967 COMP LETE CBC W/AUTO DIFF WBC JUANITO PHELAN, [facility] 11/23/2010 13653 CULT URE, BACTERIA, OTHER JUANITO PHELAN [facility] 11/29/2010 77231 CULT URE AEROBIC IDENTIFY JUANITO PHELAN, [facility] 11/29/2010 91198 MICR OBE SUSCEPTIBLE, DAVID JUANITO PHELAN, [facility] 11/29/2010 15006 SMEA R, GRAM STAIN JUANITO PHELAN, [facility] 11/29/2010 11370 CHES T X-RAY JUANITO PHELAN [facility] 12/06/2010 50681 COMP REHEN METABOLIC PANEL JUANITO PHELAN, [facility] 12/06/2010 93220 URIN ALYSIS, AUTO W/SCOPE JUANITO PHELAN [facility] 12/06/2010 16814 ASSA Y OF AMYLASE JUANITO PHELAN, [facility] 12/06/2010 51658 ASSA Y OF LIPASE JUANITO PHELAN, [facility] 12/06/2010 47722 BL S MEAR W/DIFF WBC COUNT JUANITO PHELAN [facility] 12/06/2010 82078 COMP LETE CBC, AUTOMATED JUANITO PHELAN, [facility] 12/06/2010 20895 HYDR ATE IV INFUSION, ADD-ON JUANITO PHELAN, [facility] 12/06/2010 38972 THER /PROPH/DIAG INJ, IV PUSH JUANITO PHELAN, [facility] 12/06/2010 27503 TX/P RO/DX INJ NEW DRUG ADDON JUANITO PHELAN, [facility] 12/06/2010 G0378 HOSP ITAL OBSERVATION PER HR JUANITO PHELAN KRISTIN C 12/06/2010 J2550 PROM ETHAZINE HCL INJECTION JUANITO PHELAN KRISTIN C 12/06/2010 43765 ROUT INE VENIPUNCTURE JUANITO PHELAN KRISTIN C 12/07/2010 35989 COMP REHEN METABOLIC PANEL JUANITO PHELAN KRISTIN C 12/07/2010 82753 NATR IURETIC PEPTIDE JUANITO PHELAN KRISTIN C 12/07/2010 67995 BL S MEAR W/DIFF WBC COUNT JUANITO PHELAN KRISTIN C 12/07/2010 98738 COMP LETE CBC, AUTOMATED JUANITO PHELAN KRISTIN C 12/07/2010 48140 TTE W/DOPPLER, COMPLETE JUANITO PHELAN KRISTIN C 12/07/2010 26743 HYDR ATE IV INFUSION, ADD-ON JUANITO PHELAN KRISTIN C 12/07/2010 06557 ROUT INE VENIPUNCTURE JUANITO PHELAN KRISTIN C 12/08/2010 39144 META BOLIC PANEL TOTAL CA JUANITO PHELAN KRISTIN C 12/08/2010 27907 HYDR ATE IV INFUSION, ADD-ON JU[facility]ITO [facility] 12/08/2010 09607 ROUT INE VENIPUNCTURE J[facility]O [facility] 12/28/2010 66520 COMP REHEN METABOLIC PANEL J[facility]O [facility] 12/28/2010 26193 ASSA Y OF MAGNESIUM JUANITO PHELAN [facility] 12/28/2010 30471 COMP LETE CBC W/AUTO DIFF WBC J[facility]ITO [facility] 12/28/2010 05179 ROUT INE VENIPUNCTURE J[facility]ITO [facility] 01/26/2011 90752 COMP REHEN METABOLIC PANEL [facility] 01/26/2011 19907 COMP LETE CBC W/AUTO DIFF WBC [facility] 01/26/2011 33191 ROUT INE VENIPUNCTURE [facility] 02/05/2011 81555 COMP REHEN METABOLIC PANEL [facility] 02/05/2011 76234 URIN ALYSIS, AUTO W/SCOPE J[facility]O [facility] 02/05/2011 79143 NATR IURETIC PEPTIDE J[facility]ITO [facility]AN [facility] 02/05/2011 39495 COMP LETE CBC W/AUTO DIFF WBC [facility] 02/05/2011 13847 URIN E CULTURE/COLONY COUNT [facility] 02/05/2011 69100 THER /PROPH/DIAG INJ, IV PUSH JUANITO PHELAN [facility] 02/05/2011 24329 POOJA GENCY DEPT VISIT JUANITO PHELAN [facility] 02/05/2011 G0378 HOSP ITAL OBSERVATION PER HR J[facility]ITO [facility] 02/05/2011 G0431 DRUG SCREEN SINGLE CLASS [facility]O [facility] 02/05/2011 J0696 CEFT RIAXONE SODIUM INJECTION JUANITO PHELAN [facility] 02/05/2011 J1940 FURO SEMIDE INJ JUANITO PHELAN [facility] 02/05/2011 51603 CULT URE SCREEN ONLY JUANITO PHELAN [facility] 02/06/2011 95599 TX/P RO/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 JUANITO PHELAN [facility] 02/06/2011 J1940 FURO SEMIDE INJ JUANITO PHELAN [facility] 02/06/2011 37229 ROUT INE VENIPUNCTURE JUANITO PHELAN [facility] 02/07/2011 81838 COMP REHEN METABOLIC PANEL JUANITO PHELAN [facility] 02/07/2011 51622 ROUT INE VENIPUNCTURE JUANITO PHELAN [facility] 03/21/2011 90235 CHES T X-RAY JUANITO PHELAN [facility] 03/21/2011 60249 COMP REHEN METABOLIC PANEL JUANITO PHELAN [facility] 03/21/2011 25986 URIN ALYSIS, AUTO W/SCOPE [facility] 03/21/2011 32814 URIN ALYSIS NONAUTO W/O SCOPE [facility]O [facility] 03/21/2011 90134 COMP LETE CBC W/AUTO DIFF WBC [facility]O [facility] 03/21/2011 20886 URIN E CULTURE/COLONY COUNT [facility]O [facility] 03/21/2011 15917 URIN E BACTERIA CULTURE J[facility]ITO [facility] 03/21/2011 62037 CULT URE TYPE, IMMUNOLOGIC J[facility]ITO PHEL[facility] 03/21/2011 36299 MICR OBE SUSCEPTIBLE, DAVID J[facility]ITO [facility] 03/21/2011 27107 HYDR ATE IV INFUSION, ADD-ON JUANITO PHELAN, [facility] 03/21/2011 05441 THER /PROPH/DIAG INJ, SC/IM JUANITO PHELAN, [facility] 03/21/2011 34144 THER /PROPH/DIAG INJ, IV PUSH JUANITO PHELAN, [facility] 03/21/2011 12436 TX/P RO/DX INJ NEW DRUG ANDRES SOLOMON MD, [facility] 03/21/2011 82064 POOJA GENCY DEPT VISIT JUANITO PHELAN, [facility] 03/21/2011 C9113 INJ PANTOPRAZOLE SODIUM, VIA JUANITO PHELAN, [facility] 03/21/2011 G0378 HOSP ITAL OBSERVATION PER HR JUANITO PHELAN, [facility] 03/21/2011 G0431 DRUG SCREEN SINGLE CLASS JUANITO PHELAN, [facility] 03/21/2011 J2550 PROM ETHAZINE HCL INJECTION JUANITO PHELAN, [facility] 03/21/2011 A0425 GROU ND OLINDA SOLOMON MD, [facility] 03/21/2011 A0429 BLS EMERGENCY JUANITO PHELAN, [facility] 03/21/2011 53593 ROUT INE VENIPUNCTURE JUANITO PHELAN, [facility] 03/22/2011 65009 COMP REHEN METABOLIC PANEL JUANITO PHELAN, [facility] 03/22/2011 95469 HYDR ATE IV INFUSION, ADD-ON JUANITO PHELAN, [facility] 03/22/2011 93483 THER /PROPH/DIAG INJ, SC/IM JUANITO PHELAN [facility] 03/22/2011 88435 TX/P RO/DX INJ NEW DRUG KAE SOLOMON MD, [facility] 03/22/2011 J2550 PROM ETHAZINE HCL INJECTION JUANITO PHELAN, [facility] 03/22/2011 J3411 THIA MINE HCL 100 MG JUANITO PHELAN, [facility] 03/22/2011 02113 ROUT INE VENIPUNCTURE JUANITO PHELAN, [facility] 03/23/2011 26454 COMP REHEN METABOLIC PANEL JUANITO PHELAN, [facility] 03/23/2011 13167 HYDR ATE IV INFUSION, ADD-ON JUANITO PHELAN, [facility] 03/23/2011 90254 THER /PROPH/DIAG INJ, SC/IM JUANITO PHELAN, [facility] 03/23/2011 04735 TX/P RO/DX INJ NEW DRUG ANDRES SOLOMON MD, [facility] 03/23/2011 [id number] ATIV AN INJECTION JUANITO PHELAN, [facility] 03/23/2011 82584 OFFI CE/OUTPATIENT VISIT, MATTY DECKER MD, [facility] R 05/01/2011 98097 THER /PROPH/DIAG INJ, IV PUSH JUANITO PHELAN, [facility] 05/06/2011 65008 TX/P RO/DX INJ NEW DRUG ANDRES SOLOMON MD, [facility] 05/06/2011 60396 POOJA GENCY DEPT VISIT JUANITO PHELAN, [facility] 05/06/2011 J1885 KETO ROLAC TROMETHAMINE INJ JUANITO PHELAN, KRISTIN C 05/06/2011 [id number] PROM ETHAZINE HCL INJECTION JUANITO PHELAN, KRISTIN C 05/06/2011 A0425 GROU ND OLINDA HARRINGTON MD, FREDY Mandeep 05/06/2011 A0427 ALS1 EMERGENCY LEN PHELAN, FREDY Mandeep 05/06/2011 37442 [facility] G[facility] DEPT VISIT LEN PHELAN, [facility] 05/06/2011 84174 ROUT INE VENIPUNCTURE JUANITO PHELAN, KRISTIN C 05/07/2011 60944 COMP REHEN METABOLIC PANEL JUANITO PHELAN, KRISTIN C 05/07/2011 94050 COMP LETE CBC W/AUTO DIFF WBC JUANITO PHELAN, KRISTIN C 05/07/2011 32072 THER /PROPH/DIAG INJ, IV PUSH JUANITO PHELAN, KRISTIN C 05/07/2011 26328 [facility] GENCY DEPT VISIT JUANITO PHELAN, KRISTIN C 05/07/2011 [id number] KETO ROLAC TROMETHAMINE INJ JUANITO PHELAN, KRISTIN C 05/07/2011 A0425 GROU ND OLINDA SOLOMON MD, KRISTIN C 05/07/2011 A0427 ALS1 EMERGENCY JUANITO PHELAN, KRISTIN C 05/07/2011 44106 [facility] GENCY DEPT VISIT JUANITO PHELAN, KRISTIN C 05/20/2011 A0425 GROU ND ESTEFANIA WHITTINGTON DO 05/20/2011 A0427 ALS1 EMERGENCY ESTEFANIA CUETO DO 05/20/2011 49471 [facility] GENCY DEPT VISIT ESTEFANIA CUETO DO 05/20/2011 30093 ROUT INE VENIPUNCTURE TEX SOLOMON MDWALDO C 05/21/2011 20345 INSE RT TEMP BLADDER CATH JUANITO PHELAN KRISTIN Burke 05/21/[address] H EAD/BRAIN W/O TEX WILSON MDWALDO [facility] 05/21/2011 40892 CHES T X-RAY JUANITO PHELAN [facility] 05/21/[address] N PRAFUL SPINE W/O ANA SOLOMON MD KRISTIN C 05/21/2011 89718 COMP REHEN METABOLIC PANEL TEX SOLOMON MDWALDO C 05/21/2011 12854 URIN ALYSIS, AUTO W/SCOPE JUANITO PHELAN KRISTIN C 05/21/2011 81662 ASSA Y OF ETHANOL JUANITO PHELAN [facility] 05/21/2011 93356 ASSA Y OF CK (CPK) JUANITO PHELAN KRISTIN C 05/21/2011 39718 CREA CATHY, MB FRACTION JUANITO PHELAN KRISTIN C 05/21/2011 65202 NATR IURETIC PEPTIDE JUANITO PHELAN KRISTIN C 05/21/2011 39683 ASSA Y OF TROPONIN, QUANT JUANITO PHELAN KRISTIN C 05/21/2011 71158 COMP LETE CBC W/AUTO DIFF WBC JUANITO PHELAN KRISTIN C 05/21/2011 50198 ELEC TROCARDIOGRAM, TRACING JUANITO PHELAN KRISTIN C 05/21/2011 80930 HYDR ATION IV INFUSION, INIT JUANITO PHELAN KRISTIN C 05/21/2011 00677 HYDR ATE IV INFUSION, ADD-ON JUANITO PHELAN KRISTIN C 05/21/2011 G0431 DRUG SCREEN SINGLE CLASS JUANITO PHELAN KRISTIN [facility] 05/21/2011 59860 ELEC TROCARDIOGRAM REPORT JOANNA ISIDRO MD 05/21/2011 47369 ROUT INE VENIPUNCTURE JUANITO PHELAN KRISTIN C 05/29/2011 51213 X-RA Y EXAM OF LOWER SPINE JUANITO PHELAN KRISTIN C 05/29/2011 60975 X-RA Y EXAM OF PELVIS JUANITO PHELAN KRISTIN C 05/29/2011 40185 COMP REHEN METABOLIC PANEL JUANITO PHELAN KRISTIN 05/29/2011 09366 COMP LETE CBC W/AUTO DIFF WBC JUANITO PHELAN KRISTIN C 05/29/2011 23102 MRI LUMBAR SPINE W/O & W/DYE JUANITO PHELAN KRISTIN C 05/31/[address] SPINE L/S (CD) JUANITO PHELAN KRISTIN C 06/28/2011 57941 FLUO ROGUIDE FOR SPINE INJECT TEX SOLOMON MDWALDO C 06/28/2011 J1040 METH LPREDNISOLONE ACETATE JUANITO PHELAN KRISTIN C 06/28/2011 Q9961 HOCM 250-299MG/ML IODINE,1ML JUANITO PHELAN [facility] C 06/28/[address] SPINE L/S (CD) SHIRAZ SCHWARTZ CRNA 06/28/2011 56314 ROUT INE VENIPUNCTURE JUANITO PHELAN [facility] 07/03/2011 44290 COMP REHEN METABOLIC PANEL JUANITO PHELAN K[facility]STIN C 07/03/2011 42300 CHAUNCEY MIN B-[address] [facility] 07/03/2011 68786 ASSA Y OF BLOOD/URIC ACID JUANITO PHELAN [facility] 07/03/2011 36833 COMP LETE CBC W/AUTO DIFF WBC JUANITO PHELAN KRISTIN C 07/03/[address] SPINE L/S (CD) JUANITO PHELAN [facility] 07/12/2011 61109 FLUO ROGUIDE FOR SPINE INJECT TEX SOLOMON MDWALDO C 07/12/2011 J1040 METH LPREDNISOLONE ACETATE JUANITO PHELAN KRISTIN C 07/12/2011 Q9961 HOCM 250-299MG/ML IODINE,1ML JUANITO PHELAN [facility] 07/12/[address] SPINE L/S (CD) ABBIE RINCON 07/12/[address] SPINE L/S (CD) JUANITO PHELAN KRISTIN C 07/26/2011 03720 FLUO ROGUIDE FOR SPINE INJECT JUANITO PHELAN [facility] 07/26/2011 J1040 METH LPREDNISOLONE ACETATE JUANITO PHELAN KRISTIN C 07/26/2011 Q9961 HOCM 250-299MG/ML IODINE,1ML UJANITO PHELAN KRISTIN C 07/26/[address] SPINE L/S (CD) SHIRAZ SCHWARTZ CRNA L 07/26/2011 96904 ROUT INE VENIPUNCTURE JUANITO PHELAN, [facility] 08/20/2011 41757 COMP REHEN METABOLIC PANEL JUANITO PHELAN [facility] 08/20/2011 37801 COMP LETE CBC W/AUTO DIFF WBC JUANITO PHELAN KRISTIN C 08/20/2011 50019 META BOLIC PANEL TOTAL DAMARIS SOLOMON MD [facility] 08/28/2011 84666 THER /PROPH/DIAG IV INF, INIT JUANITO PHELAN [facility] 08/28/2011 J1580 GARA MYCIN GENTAMICIN INJ JUANITO PHELAN [facility] 08/28/2011 69302 THER /PROPH/DIAG IV INF ANDRES SOLOMON MD, [facility] 08/29/2011 J1580 GARA MYCIN GENTAMICIN INJ JUANITO PHELAN [facility] 08/29/2011 73637 ROUT INE VENIPUNCTURE JUANITO PHELAN [facility] 08/30/2011 80264 META BOLIC PANEL TOTAL DAMARIS SOLOMON MD, [facility] 08/30/2011 42253 ASSA Y OF GENTAMICIN JUANITO PHELAN [facility] 08/30/2011 49680 THER /PROPH/DIAG IV INF ANDRES SOLOMON MD [facility] 08/30/2011 26474 THER /PROPH/DIAG INJ, SC/IM JUANITO PHELAN K[facility]STIN C 08/30/2011 J1580 GARA MYCIN GENTAMICIN INJ JUANITO PHELAN KIRSTIN C 08/30/2011 25317 THER /PROPH/DIAG INJ, SC/IM JUANITO PHELAN [facility] 08/31/2011 J1580 GARA MYCIN GENTAMICIN INJ JUANITO PHELAN [facility] C 08/31/2011 24496 THER /PROPH/DIAG INJ, SC/IM FREDY HARRINGTON MD 09/01/2011 J1580 GARA MYCIN GENTAMICIN INJ FREDY HARRINGTON MD 09/01/2011 35390 THER /PROPH/DIAG INJ, SC/IM JUANITO PHELAN KRISTIN [facility] 09/02/2011 J1580 GARA MYCIN GENTAMICIN INJ JUANITO PHELAN [facility] 09/02/2011 39144 ROUT INE VENIPUNCTURE KRISTIN SOLOMON MD 09/03/2011 47646 COMP REHEN METABOLIC PANEL KRISTIN SOLOMON MD 09/03/2011 28267 ASSA Y OF GENTAMICIN KRISTIN SOLOMON MD 09/03/2011 49269 COMP LETE CBC W/AUTO DIFF WBC KRISTIN SOLOMON MD 09/03/2011 50257 THER /PROPH/DIAG INJ, SC/IM KRISTIN SOLOMON MD 09/03/2011 J1580 GARA MYCIN GENTAMICIN INJ KRISTIN SOLOMON MD 09/03/2011 22258 THER /PROPH/DIAG INJ, SC/IM KRISTIN SOLOMON MD 09/04/2011 J1580 GARA MYCIN GENTAMICIN INJ KRISTIN SOLOMON MD 09/04/2011 19394 REPA IR SUPERFICIAL WOUND(S) [facility] 09/30/2011 74925 IMMU NIZATION ADMIN [facility] 09/30/2011 41433 TD V ACCINE > 7, IM KRISTIN SOLOMON MD 09/30/2011 52606 [facility] G[facility]Y DEPT VISIT [facility] 09/30/2011 84043 [facility]ENC[facility] DEPT VISIT [facility] 09/30/2011 05592 URIN E CULTURE/COLONY COUNT KRISTIN SOLOMON MD 10/10/2011 14608 URIN E BACTERIA CULTURE KRISTIN SOLOMON MD 10/10/2011 81697 MICR OBE SUSCEPTIBLE, DAVID KRISTIN SOLOMON MD 10/10/2011 06148 REPA IR SUPERFICIAL WOUND(S) KRISTIN SOLOMON MD 10/13/2011 20822 THER /PROPH/DIAG INJ, SC/IM KRISTIN SOLOMON MD 10/13/2011 13672 [facility] GENCY DEPT VISIT KRISTIN SOLOMON MD 10/13/2011 J0696 CEFT RIAXONE SODIUM INJECTION KRISTIN SOLOMON MD 10/13/2011 75854 [facility] GENCY DEPT VISIT KRISTIN SOLOMON MD 10/13/2011 48800 ROUT INE VENIPUNCTURE KRISTIN SOLOMON MD 11/08/2011 61176 CHES T X-RAY KRISTIN SOLOMON MD 11/08/2011 25632 COMP REHEN METABOLIC PANEL JUANITO PHELAN, KRISTIN C 11/08/2011 49618 ASSA Y OF CK (CPK) JUANITO PHELAN, KRISTIN C 11/08/2011 27431 TRES MORGAN, PEDRO FRACTION JUANITO PHELAN, KRISTIN C 11/08/2011 45370 ASSA Y OF MAGNESIUM JUAINTO PHELAN KRISTIN C 11/08/2011 84776 NATR IURETIC PEPTIDE JUANITO PHELAN, KRISTIN C 11/08/2011 82714 ASSA Y OF TROPONIN, QUANT JUANITO PHELAN, KRISTIN C 11/08/2011 29669 BL S MEAR W/DIFF WBC COUNT JUANITO PHELAN, KRISTIN C 11/08/2011 35882 COMP LETE CBC, AUTOMATED JUANITO PHELAN, KRISTIN C 11/08/2011 61087 ELEC TROCARDIOGRAM, TRACING JUANITO PHELAN, KRISTIN C 11/08/2011 59984 [facility] GENCY DEPT VISIT JUANITO PHELAN KRISTIN C 11/08/2011 A0425 GROU ND OLINDA SOLOMON MD, KRISTIN C 11/08/2011 A0427 ALS1 EMERGENCY JUANITO PHELAN, KRISTIN C 11/08/2011 91157 ELEC TROCARDIOGRAM REPORT JOANNA ISIDRO MD 11/08/2011 80689 [facility] GENCY DEPT VISIT JUANITO PHELAN, KRISTIN C 11/08/[address] SPINE L/S (CD) JUANITO PHELAN KRISTIN C 11/22/2011 68925 FLUO ROGUIDE FOR SPINE INJECT JUANITO PHELAN KRISTIN C 11/22/2011 J1040 METH LPREDNISOLONE ACETATE JUANITO PHELAN, KRISTIN C 11/22/2011 Q9961 HOCM 250-299MG/ML IODINE,1ML JUANITO PHELAN KRISTIN C 11/22/[address] SPINE L/S (CD) ABBIE RINCON 11/22/2011 15255 CULT URE AEROBIC IDENTIFY JUANITO PHELAN KRISTIN C 11/26/2011 79124 URIN E CULTURE/COLONY COUNT JUANITO PHELAN KRISTIN C 11/26/2011 42944 URIN E BACTERIA CULTURE JUANITO PHELAN KRISTIN C 11/26/2011 38836 MICR OBE SUSCEPTIBLE, DAVID JUANITO PHELAN, KRISTIN C 11/26/2011 71241 OFFI CE/OUTPATIENT VISIT, EST JERONIMO PHELAN, [place] R 11/27/2011 80511 ROUT INE VENIPUNCTURE JUANITO PHELAN KRISTIN C 12/03/2011 74219 COMP REHEN METABOLIC PANEL JUANITO PHELAN KRISTIN C 12/03/2011 71537 COMP LETE CBC W/AUTO DIFF WBC JUANITO PHELAN KRISTIN C 12/03/2011 11168 ROUT INE VENIPUNCTURE JUANITO PHELAN KRISTIN C 12/07/2011 94358 COMP REHEN METABOLIC PANEL JUANITO PHELAN KRISTIN C 12/07/2011 51848 COMP LETE CBC W/AUTO DIFF WBC JUANITO PHELAN KRISTIN C 12/07/2011 39305 HT M USCLE IMAGE SPECT, ADONIS SOLOMON MD KRISTIN C 12/14/2011 A9500 TC99 M SESTAMIBI JUANITO PHELAN KRISTIN C 12/14/2011 J2785 REGA DENOSON INJECTION JUANITO PHELAN KRISTIN C 12/14/2011 J7050 NS S OLUTION 250 CC INFUSION JUANITO PHELAN KRISTIN C 12/14/2011 39091 CARD IOVASCULAR STRESS TEST JUANITO PHELAN KRISTIN C 12/14/2011 35020 ROUT INE VENIPUNCTURE JUANITO PHELAN KRISTIN C 01/01/2012 03980 COMP REHEN METABOLIC PANEL JUANITO PHELAN KRISTIN C 01/01/2012 44875 COMP LETE CBC W/AUTO DIFF WBC JUANITO PHELAN KRISTIN C 01/01/2012 59604 ROUT INE VENIPUNCTURE JUANITO PHELAN KRISTIN C 01/16/2012 74262 CHES T X-RAY JUANITO PHELAN KRISTIN C 01/16/2012 51592 COMP REHEN METABOLIC PANEL JUANITO PHELAN KRISTIN C 01/16/2012 48925 ASSA Y OF CK (CPK) JUANITO PHELAN KRISTIN C 01/16/2012 45510 CREAna M MORGAN, PEDRO SOLOMON MD KRISTIN C 01/16/2012 13830 NATR IURETIC PEPTIDE JUANITO PHELAN KRISTIN C 01/16/2012 78919 ASSA Y OF TROPONIN, QUANT JUANITO PHELAN [facility] 01/16/2012 39994 COMP LETE CBC W/AUTO DIFF WBC [facility] 01/16/2012 61836 CULT URE, BACTERIA, OTHER JUANITO PHELAN [facility] 01/16/2012 16313 CULT URE SCREEN ONLY JUANITO PHELAN [facility] 01/16/2012 40297 CULT URE TYPE, IMMUNOLOGIC TEX [facility] 01/16/2012 21021 MICR OBE SUSCEPTIBLE, DAVID JUANITO PHELAN [facility] 01/16/2012 84163 SMEA R, GRAM STAIN JUANITO PHELAN [facility] 01/16/2012 03735 ELEC TROCARDIOGRAM, TRACING JUANITO PHELAN [facility] 01/16/2012 01317 EVAL UATE PT USE OF INHALER JUANITO PHELAN [facility] 01/16/2012 66320 HYDR ATE IV INFUSION, ADD-ON TEX SOLOMON MDWALDO [facility] 01/16/2012 43812 THER /PROPH/DIAG INJ, IV PUSH JUANITO PHELAN [facility] 01/16/2012 13475 [facility] GENCY DEPT VISIT [facility] 01/16/2012 G0378 HOSP ITAL OBSERVATION PER HR [facility]ON [facility] 01/16/2012 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 JUANITO PHELAN [facility] 01/16/2012 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 JUANITO PHELAN [facility] 01/16/2012 J7611 ALBU TEROL NON-COMP CON TEX [facility] 01/16/2012 09382 ELEC TROCARDIOGRAM REPORT DWAINE PHELAN, JOANNA L 01/16/2012 A0425 GROU ND FREDY MADRIGAL MD 01/16/2012 A0427 ALS1 EMERGENCY FREDY HARRINGTON MD 01/16/2012 56321 [facility] GENCY DEPT VISIT FREDY HARRINGTON MD 01/16/2012 71393 ROUT INE VENIPUNCTURE JUANITO PHELAN [facility] 01/17/2012 51611 COMP REHEN METABOLIC PANEL TEX SOLOMON MDWALDO [facility] 01/17/2012 83584 ASSA Y OF CK (CPK) TEX SOLOMON MDWALDO [facility] 01/17/2012 37698 PEDRO TRINH MD, KRISTIN C 01/17/2012 75365 NATR IURETIC PEPTIDE [facility] 01/17/2012 01689 ASSA Y OF TROPONIN, QUANT TEX [facility] 01/17/2012 40208 COMP LETE CBC W/AUTO DIFF WBC RAMIRO SOLOMON MDO [facility] 01/17/2012 04752 ELEC TROCARDIOGRAM, TRACING TEX SOLOMON MDWALDO [facility] 01/17/2012 38767 AIRW AY INHALATION TREATMENT [facility] 01/17/2012 99532 EVAL UATE PT USE OF INHALER TEX [facility] 01/17/2012 03971 HYDR ATE IV INFUSION, ADD-ON TEX [facility] 01/17/2012 74788 TX/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/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 TEX SOLOMON [facility] 01/17/2012 A9270 Non- covered item or service TEX SOL[facility]ON [facility] 01/17/2012 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 [facility] 01/17/2012 J7611 ALBU TEROL NON-COMP CON [facility] 01/17/2012 21861 ELEC TROCARDIOGRAM REPORT DWAINE PHELAN, JOANNA Summers 01/17/2012 26064 ROUT INE VENIPUNCTURE RAMIRO SOLOMON MDO [facility] 01/18/2012 78676 COMP REHEN METABOLIC PANEL KRISTIN SOLOMON MD 01/18/2012 32929 COMP LETE CBC W/AUTO DIFF WBC KRISTIN SOLOMON MD 01/18/2012 50247 EVAL UATE PT USE OF INHALER KRISTIN SOLOMON MD 01/18/2012 A9270 Non- covered item or service [facility] 01/18/2012 G0008 INFL UENZA VIRUS VACCINE TEX SOLOMON MDWALDO [facility] 01/18/2012 Q2037 FLUV IRIN VACC, 3 YRS & >, IM TEX [facility] 01/18/2012 28910 ROUT INE VENIPUNCTURE KRISTIN SOLOMON MD 01/26/2012 83013 INSE RT TEMP BLADDER CATH KRISTIN SOLOMON MD 01/26/2012 97360 COMP REHEN METABOLIC PANEL KRISTIN SOLOMON MD 01/26/2012 40700 URIN ALYSIS, AUTO W/SCOPE TEX SOLOMON MDWALDO Burke 01/26/2012 06421 BL S MEAR W/DIFF WBC COUNT TEX SOLOMON MDWALDO Burke 01/26/2012 31550 COMP LETE CBC, AUTOMATED [facility] 01/26/2012 98936 [facility] GENCY DEPT VISIT TEX SOLOMON MDWALDO [facility] 01/26/2012 G0431 DRUG SCREEN SINGLE CLASS TEX SOLOMON MDWALDO Burke 01/26/2012 A0425 GROU ND MILEAGE [facility] 01/26/2012 A0429 BLS EMERGENCY [facility] 01/26/2012 37589 [facility] GENCY DEPT VISIT TEX SOLOMON MDWALDO [facility] 01/26/2012 61912 ELEC TROCARDIOGRAM REPORT DWAINE PHELAN, JOANNA Summers 01/27/[address] H EAD/BRAIN W/O DYE TEX SOLOMON MDWALDJudy Turk 01/27/2012 61790 CHES T X-RAY TEX SOLOMON MDWALDO [facility] 01/27/2012 36918 X-RA Y EXAM OF PELVIS TEX SOLOMON MDWALDO Burke 01/27/2012 60854 X-RA Y EXAM OF HIP TEX SOLOMON [...] SM INTEST BX Hugo Estes MD 02/12/2012 05004 ROUT INE VENIPUNCTURE KRISTIN SOLOMON MD 04/07/2012 55253 COMP REHEN METABOLIC PANEL KRISTIN SOLOMON MD 04/07/2012 21594 BL S MEAR W/DIFF WBC COUNT KRISTIN SOLOMON MD 04/07/2012 32992 COMP LETE CBC, AUTOMATED JUANITO PHELAN, KRISTIN C 04/07/2012 40041 [facility] GENCY DEPT VISIT JUANITO PHELAN, KRISTIN C 04/07/2012 A0425 GROU ND OLINDA SOLOMON MD, KRISTIN C 04/07/2012 A0429 BLS EMERGENCY JUANITO PHELAN, KRISTIN C 04/07/2012 90141 [facility] GENCY DEPT VISIT JUANITO PHELAN, KRISTIN C 04/07/2012 77653 COMP REHEN METABOLIC PANEL JUANITO PHELAN, KRISTIN C 04/21/2012 95870 COMP LETE CBC W/AUTO DIFF WBC JAUNITO PHELAN, KRISTIN C 04/21/2012 85085 URIN ALYSIS, AUTO W/SCOPE JUANITO PHELAN, KRISTIN C 04/25/2012 50851 COMP REHEN METABOLIC PANEL JUANITO PHELAN, KRISITN C 04/28/2012 89169 COMP LETE CBC W/AUTO DIFF WBC JUANITO PHELAN, KRISTIN C 04/28/2012 55360 COMP REHEN METABOLIC PANEL JUANITO PHELAN, KRISTIN C 05/05/2012 46914 COMP LETE CBC W/AUTO DIFF WBC JUANITO PHELAN KRISTIN C 05/05/2012 99153 EXTR EMITY STUDY JUANITO PHELAN, KRISTIN C 05/12/2012 49105 COMP REHEN METABOLIC PANEL JUANITO PHELAN, KRISTIN C 05/20/2012 29536 COMP LETE CBC W/AUTO DIFF WBC JUANITO PHELAN KRISTIN C 05/20/2012 62656 PROT HROMBIN TIME JUANITO PHELAN KRISTIN C 05/20/2012 01083 ROUT INE VENIPUNCTURE JUANITO PHELAN KRISTIN C 05/29/2012 33041 COMP REHEN METABOLIC PANEL JUANITO PHELAN KRISTIN C 05/29/2012 45674 COMP LETE CBC W/AUTO DIFF WBC JUANITO PHELAN KRISTIN C 05/29/2012 62114 PROT HROMBIN TIME JUANITO PHELAN KRISTIN C 05/29/2012 74481 PROT HROMBIN TIME JUANITO PHELAN KRISTIN C 06/09/2012 69636 ROUT INE VENIPUNCTURE JUANITO PHELAN KRISTIN C 06/10/2012 85538 META BOLIC PANEL TOTAL CA JUANITO PHELAN KRISTIN C 06/10/2012 73077 ROUT INE VENIPUNCTURE JUANITO PHELAN KRISTIN C 07/15/2012 33433 COMP REHEN METABOLIC PANEL JUANITO PHELAN KRISTIN C 07/15/2012 14487 COMP LETE CBC W/AUTO DIFF WBC JUANITO PHELAN, KRISTIN C 07/15/2012 00398 PROT HROMBIN TIME JUANITO PHELAN KRISTIN C 07/15/2012 05762 PROT HROMBIN TIME JUANITO PHELAN, KRISTIN C 07/25/2012 94025 ROUT INE VENIPUNCTURE JUANITO PHELAN KRISTIN C 07/29/2012 86576 COMP REHEN METABOLIC PANEL JUANITO PHELAN KRISTIN C 07/29/2012 65504 COMP LETE CBC W/AUTO DIFF WBC JUANITO PHELAN KRISTIN C 07/29/2012 75928 PROT HROMBIN TIME JUANITO PHELAN KRISTIN C 07/29/2012 A0425 GROU ND MILEAGE LEN PHELAN, FREDY Mandeep 07/30/2012 A0429 BLS EMERGENCY LEN PHELAN, FREDY Mandeep 07/30/2012 88148 [facility] GENCY DEPT VISIT BRIAN HARRINGTON MDFER Mandeep 07/30/2012 00675 [facility]OOJA GENCY DEPT VISIT JUANITO PHELAN KRISTIN C 07/30/2012 61727 PROT HROMBIN TIME JUANITO PHELAN KRISTIN C 08/06/2012 39810 PROT HROMBIN TIME JUANITO PHELAN KRISTIN C 08/26/2012 33629 ROUT INE VENIPUNCTURE JUANITO PHELAN KRISTIN C 09/17/2012 93605 COMP REHEN METABOLIC PANEL JUANITO PHELAN KRISTIN C 09/17/2012 05621 ASSA Y OF MAGNESIUM JUANITO PHELAN KRISTIN C 09/17/2012 35426 COMP LETE CBC W/AUTO DIFF WBC JUANITO PHELAN KRISTIN C 09/17/2012 24501 PROT HROMBIN TIME JUANITO PHELAN KRISTIN C 09/17/2012 68855 ASSA Y OF MAGNESIUM JUANITO PHELAN KRISTIN C 09/24/2012 39612 ROUT INE VENIPUNCTURE JUANITO PHELAN KRISTIN C 10/08/2012 62556 COMP REHEN METABOLIC PANEL JUANITO PHELAN KRISTIN C 10/08/2012 54230 ASSA Y OF MAGNESIUM JUANITO PHELAN KRISTIN C 10/08/2012 68281 COMP LETE CBC W/AUTO DIFF WBC JUANITO PHELAN KRISTIN C 10/08/2012 90302 ROUT INE VENIPUNCTURE JUANITO PHELAN [facility] 10/29/2012 73782 COMP REHEN METABOLIC PANEL JUANITO PHELAN [facility] 10/29/2012 14784 ASSA Y OF MAGNESIUM JUANITO PHELAN KRISTIN C 10/29/2012 78254 ASSA Y THYROID STIM HORMONE JUANITO PHELAN [facility] 10/29/2012 92363 COMP LETE CBC W/AUTO DIFF WBC JUANITO PHELAN [facility] 10/29/2012 79173 PROT HROMBIN TIME [facility]O [facility] 10/29/2012 28668 COMP REHEN METABOLIC PANEL [facility] 11/07/2012 43082 PROT HROMBIN TIME [facility] 11/07/2012 67249 PROT HROMBIN TIME [facility] 12/03/2012 75632 PROT HROMBIN TIME [facility] 12/30/2012 08354 CULT URE, BACTERIA, OTHER [facility] 01/14/2013 24630 CULT URE AEROBIC IDENTIFY [facility] 01/14/2013 99577 MICR OBE SUSCEPTIBLE, DAVID [facility] 01/14/2013 13538 SMEA R, GRAM STAIN [facility] 01/14/2013 12454 ASSA Y OF CREATININE [facility] 01/23/2013 82652 ASSA Y OF UREA NITROGEN [facility] 01/23/2013 04632 COMP REHEN METABOLIC PANEL [facility] 01/26/2013 66061 COMP LETE CBC W/AUTO DIFF WBC [facility] 01/26/2013 01660 PROT HROMBIN TIME [facility] 01/26/2013 46255 ASSA Y OF CREATININE [facility] 01/29/2013 91056 ASSA Y OF UREA NITROGEN [facility] 01/29/2013 63855 ASSA Y OF CREATININE [facility] 02/02/2013 07460 ASSA Y OF UREA NITROGEN [facility] 02/02/2013 84462 ASSA Y OF CREATININE [facility] 02/06/2013 66181 [facility] 04547 COMP REHEN METABOLIC PANEL [facility] 02/10/2013 10925 CULT URE, BACTERIA, OTHER [facility] 02/11/2013 79812 CULT URE AEROBIC IDENTIFY [facility] 02/11/2013 19579 MICR OBE SUSCEPTIBLE, [facility]2013 12549 SMEA R, GRAM STAIN [facility] 02/11/2013 89518 ASSA Y OF CREATININE [facility] 02/12/2013 74581 ASSA Y OF UREA NITROGEN [facility] 02/12/2013 59818 ASSA Y OF CREATININE [facility] 02/16/2013 26457 [facility] 47107 ASSA Y OF CREATININE [facility] 02/19/2013 23374 ASSA Y OF UREA NITROGEN [facility] 02/19/2013 15968 PROT HROMBIN TIME [facility]O [facility] 02/19/2013 16512 [facility]2013 24420 [facility]/21[facility]2013 79426 [facility]/22[facility]2013 61875 ASSA Y OF CREATININE [facility] 02/23/2013 64359 ASSA Y OF UREA NITROGEN [facility] 02/23/2013 47254 [facility]2013 94687 CULT URE, BACTERIA, OTHER [facility] 02/25/2013 52616 CULT URE AEROBIC IDENTIFY [facility] 02/25/2013 96902 MICR OBE SUSCEPTIBLE, DAVID [facility] 02/25/2013 44026 SMEA R, GRAM STAIN [facility] 02/25/2013 26994 PROT HROMBIN TIME [facility] 02/27/2013 82508 ASSA Y OF CREATININE [facility] 03/02/2013 76777 ASSA Y OF UREA NITROGEN [facility] 03/02/2013 15276 PROT HROMBIN TIME [facility] 03/10/2013 22537 PROT HROMBIN TIME [facility] 03/31/2013 49152 CULT URE, BACTERIA, OTHER [facility] 04/27/2013 21328 CULT URE AEROBIC IDENTIFY [facility] 04/27/2013 00513 MICR OBE SUSCEPTIBLE, DAVID [facility] 04/27/2013 89382 SMEA R, GRAM STAIN [facility] 04/27/2013 04858 ROUT INE VENIPUNCTURE [facility] 05/05/2013 82489 PROT HROMBIN TIME [facility] 05/05/2013 09436 ROUT INE VENIPUNCTURE [facility] 05/25/2013 69858 COMP REHEN METABOLIC PANEL [facility] 05/25/2013 46610 ASSA Y OF MAGNESIUM [facility] 05/25/2013 00366 COMP LETE CBC W/AUTO DIFF WBC [facility] 05/25/2013 46874 PROT HROMBIN TIME [facility] 05/25/2013 61408 PROT HROMBIN TIME [facility] 06/02/2013 28017 COMP REHEN METABOLIC PANEL [facility] 06/09/2013 36683 COMP LETE CBC W/AUTO DIFF WBC [facility] 06/09/2013 43893 PROT HROMBIN TIME [facility] 06/09/2013 34428 ROUT INE VENIPUNCTURE [facility] 07/02/2013 46530 COMP REHEN METABOLIC PANEL [facility] 07/02/2013 20075 NATR IURETIC PEPTIDE [facility] 07/02/2013 40030 COMP LETE CBC W/AUTO DIFF WBC [facility] 07/02/2013 55213 PROT HROMBIN TIME [facility] 07/02/2013 90312 ROUT INE VENIPUNCTURE [facility] 07/22/2013 47075 COMP REHEN METABOLIC PANEL [facility] 07/22/2013 91642 COMP LETE CBC W/AUTO DIFF WBC [facility] 07/22/2013 45572 PROT HROMBIN TIME [facility] 07/22/2013 85920 ROUT INE VENIPUNCTURE [facility] 10/07/2013 05026 COMP REHEN METABOLIC PANEL [facility] 10/07/2013 03671 COMP LETE CBC W/AUTO DIFF WBC [facility] 10/07/2013 59670 COMP REHEN METABOLIC PANEL [facility] 10/19/2013 04048 URIN ALYSIS, AUTO W/SCOPE [facility], [facility] 10/19/2013 66102 ASSA Y OF AMYLASE [facility] 10/19/2013 07810 ASSA Y OF LIPASE [facility], [facility] 10/19/2013 56162 COMP LETE CBC W/AUTO DIFF WBC [facility] 10/19/2013 90578 SHAWANDA COBACTER PYLORI [facility] 10/19/2013 77455 CULT URE AEROBIC IDENTIFY [facility], KRISTIN C 10/19/2013 29725 URIN E CULTURE/COLONY COUNT JUANITO PHELAN, KRISTIN C 10/19/2013 15638 MICR OBE SUSCEPTIBLE, DAVID JUANITO PHELAN, KRISTIN C 10/19/2013 92969 THER /PROPH/DIAG INJ, IV PUSH JUANITO PHELAN, KRISTIN C 10/19/2013 85140 TX/P RO/DX INJ NEW DRUG ANDRES SOLOMON MD, KRISTIN C 10/19/2013 19914 [facility] G[facility]Y DEPT VISIT JUANITO PHELAN KRISTIN C 10/19/2013 A9270 NON- COVERED [facility] G0434 DRUG SCREEN MULTI DRUG CLASS JUANITO PHELAN, [facility] 10/19/2013 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 LEN PHELAN, [facility] 10/19/2013 J2550 PROM ETHAZINE HCL INJECTION LEN PHELAN, [facility] 10/19/2013 J7030 INFU NEO, NS, 1000 CC LEN PHELAN, [facility] 10/19/2013 A0425 GROU ND MILEAGE LEN PHELAN, [facility] 10/19/2013 A0427 ALS1 EMERGENCY LEN PHELAN, [facility] 10/19/2013 07221 [facility] GENCY DEPT VISIT LEN PHELAN, [facility] 10/19/2013 48120 X-RA Y EXAM OF FOOT JUANITO PHELAN, [facility] 12/22/2013 94901 ROUT INE VENIPUNCTURE JUANITO PHELAN [facility] 02/25/2014 05597 COMP REHEN METABOLIC PANEL JUANITO PHELAN KRISTIN C 02/25/2014 53239 COMP LETE CBC W/AUTO DIFF WBC JUANITO PHELAN KRISTIN C 02/25/2014 96105 CHYL PNEUM, DNA, AMP PROBE JUANITO PHELAN KRISTIN C 02/25/2014 57131 M.PN EUMON, DNA, AMP PROBE JUANITO PHELAN, [facility] 02/25/2014 60939 RESP VIRUS 12-25 TARGETS JUANITO PHELAN, [facility] 02/25/[address] AGENT NOS, DNA, AMP JUANITO PHELAN KRISTIN C 02/25/2014 62426 ROUT INE VENIPUNCTURE JUANITO PHELAN KRISTIN C 09/09/2014 73698 CHES T X-RAY JUANITO PHELAN KRISTIN C 09/09/2014 36097 COMP REHEN METABOLIC PANEL JUANITO PHELAN KRISTIN C 09/09/2014 83693 COMP LETE CBC W/AUTO DIFF WBC JUANITO PHELAN KRISTIN C 09/09/2014 20523 MYCO PLASMA ANTIBODY JUANITO PHELAN, KRISTIN C 09/09/2014 70280 ELEC TROCARDIOGRAM TRACING JUANITO PHELAN KRISTIN C 11/16/2014 94355 X-RA Y EXAM OF ABDOMEN JUANITO PHELAN KRISTIN C 02/11/2015 38404 ELEC TROCARDIOGRAM REPORT DWAINE PHELAN, JOANNA L 07/07/2015 23386 Offi ce or other outpatient visit for the evaluation and management of a new patient, which requires Cynthia Noriega 02/17/2016 92329 ALFREDO L FUNCTION PANEL JUAN MCCABE MD, GRACE Viramontes 02/23/2016 12431 ASSA Y OF FREE THYROXINE JUAN MCCABE MD, GRACE Viramontes 02/23/2016 G0103 PSA SCREENING JUAN MCCABE MD, GRACE Viramontes 02/23/2016 34931 URIN ALYSIS AUTO W/SCOPE JUAN MCCABE MD, GRACE Viramontes 02/28/2016 71277 MICR OALBUMIN SEMIQUANT JUAN MCCABE MD, GRACE Viramontes 02/28/2016 02968 ASSA Y OF URINE CREATININE JUAN MCCABE MD, GRACE Viramontes 02/28/2016 22161 Offi ce or other outpatient visit for the evaluation and management of a new patient, which requires Cynthia Noriega 03/07/2016 V2020 Visi on svcs frames purchases 08/29/2016 V2203 Lens sphcyl bifocal 4.00d/.1 08/29/2016 V2204 Lens sphcy bifocal 4.00d/2.1 08/29/2016 V2744 Tint photochromatic lens/es 08/29/2016 V2782 Lens , 1.54-1.65 p/1.60-1.79g 08/29/2016 [id number] IN SERTION OF ENDOTRACHEAL AIRWAY INTO TR 09/03/2018 [id number] RE SPIRATORY VENTILATION, 24- 96 CONSECUTI 09/03/2018 Results Test Result Range MRSA Nasal Screen - 04/07/12 17:17 MRSA Nasal Screen SMR Wound Culture - 04/08/12 13:21 Wound Culture SMR Wound Culture - 04/08/12 13:21 Wound Culture [facility] COMPLETE BLOOD COUNT - 04/10/12 06:26 Platelet 397 10^3u 142-424 MPV 9.4 FL 9.4-12.4 Garrard # 1.00 10^3u 0.0-1.0 RBC 3.27 10^6u 4.04-6.13 Garrard % 7.4 % 0-12 RDW 15.7 % [...] 353 10^3u 142-424 MPV 9.2 FL 9.4-12.4 Garrard 8.0 RBC 3.18 10^6u 4.04-6.13 RDW 15.8 % 11.6-14.8 Seg 72.0 WBC 12.23 10^3u 4.60-10.20 Bands 3.0 MCV 91.5 FL 80.0-97.0 Eos 5.0 MCHC 30.9 G/DL 31.8-35.4 MCH 28.3 PG 27.0-31.2 Lymph 12.0 HGB 9.0 G/DL 12.2-18.1 HCT 29.1 % 37.7-53.7 COMPLETE BLOOD COUNT - 05/12/12 15:21 Platelet 356 10^3u 142-424 MPV 9.6 FL 9.4-12.4 Garrard # 0.57 10^3u 0.0-1.0 RBC 4.28 10^6u 4.04-6.13 Garrard % 6.1 % 0-12 RDW 16.3 % [...] 526 10^3u 142-424 MPV 10.3 FL 9.4-12.4 Garrard # 0.76 10^3u 0.0-1.0 RBC 4.55 10^6u 4.04-6.13 Garrard % 7.4 % 0-12 RDW 16.7 % [...] 423 10^3u 142-424 MPV 9.6 FL 9.4-12.4 Garrard # 0.80 10^3u 0.0-1.0 RBC 4.04 10^6u 4.04-6.13 Garrard % 7.6 % 0-12 RDW 17.2 % [...] 439 10^3u 142-424 MPV 11.0 FL 9.4-12.4 Garrard # 0.61 10^3u 0.0-1.0 RBC 4.70 10^6u 4.04-6.13 Garrard % 6.5 % 0-12 RDW 15.0 % [...] 399 10^3u 142-424 MPV 10.2 FL 9.4-12.4 Garrard # 0.72 10^3u 0.0-1.0 RBC 4.17 10^6u 4.04-6.13 Garrard % 6.7 % 0-12 RDW 14.9 % [...] 462 10^3u 142-424 MPV 10.2 FL 9.4-12.4 Garrard # 0.77 10^3u 0.0-1.0 Garrard 4.0 RBC 4.69 10^6u 4.04-6.13 Garrard % 4.0 % 0-12 RDW 15.0 % [...] Urobilinogen 0.2 0.2-1.0 Urine RBC N0-2 Specific Spencer 1.015 1.010-1.020 Urine WBC N0-2 Blood Negative Negative Color Yellow Yellow Bilirubin Negative Negative Blood Culture - 07/30/12 22:53 Blood Culture SMR Blood Culture - 07/30/12 22:59 Blood Culture SMR MRSA Nasal Screen - 07/31/12 02:04 MRSA Nasal Screen [facility] COMPLETE BLOOD COUNT - 07/31/12 05:50 Platelet 310 10^3u 142-424 MPV 10.1 FL 9.4-12.4 Garrard # 0.83 10^3u 0.0-1.0 RBC 4.07 10^6u 4.04-6.13 Garrard % 4.7 % 0-12 RDW 14.9 % [...] 263 10^3u 142-424 MPV 9.6 FL 9.4-12.4 Garrard # 0.56 10^3u 0.0-1.0 RBC 3.39 10^6u 4.04-6.13 Garrard % 5.3 % 0-12 RDW 15.0 % [...] 309 10^3u 142-424 MPV 10.4 FL 9.4-12.4 Garrard # 0.54 10^3u 0.0-1.0 RBC 4.43 10^6u 4.04-6.13 Garrard % 7.2 % 0-12 RDW 15.0 % [...] 316 10^3u 142-424 MPV 10.0 FL 9.4-12.4 Garrard # 0.66 10^3u 0.0-1.0 RBC 4.41 10^6u 4.04-6.13 Garrard % 6.5 % 0-12 RDW 14.5 % [...] 243 10^3u 142-424 MPV 10.0 FL 9.4-12.4 Garrard # 0.58 10^3u 0.0-1.0 RBC 4.21 10^6u 4.04-6.13 Garrard % 7.3 % 0-12 RDW 15.0 % [...] 245 10^3u 142-424 MPV 10.7 FL 9.4-12.4 Garrard # 0.73 10^3u 0.0-1.0 RBC 4.35 10^6u 4.04-6.13 Garrard % 10.8 % 0-12 RDW 14.1 % [...] 203 10^3u 142-424 MPV 10.2 FL 9.4-12.4 Garrard # 0.43 10^3u 0.0-1.0 RBC 3.98 10^6u 4.04-6.13 Garrard % 7.8 % 0-12 RDW 15.1 % [...] 203 10^3u 142-424 MPV 10.1 FL 9.4-12.4 Garrard # 0.47 10^3u 0.0-1.0 RBC 4.00 10^6u 4.04-6.13 Garrard % 5.6 % 0-12 RDW 14.0 % [...] 212 10^3u 142-424 MPV 10.3 FL 9.4-12.4 Garrard # 0.55 10^3u 0.0-1.0 RBC 3.82 10^6u 4.04-6.13 Garrard % 7.5 % 0-12 RDW 14.0 % [...] 191 10^3u 142-424 MPV 10.3 FL 9.4-12.4 Garrard # 0.52 10^3u 0.0-1.0 RBC 4.86 10^6u 4.04-6.13 Garrard % 5.8 % 0-12 RDW 13.2 % [...] 229 10^3u 142-424 MPV 11.5 FL 9.4-12.4 Garrard # 0.85 10^3u 0.0-1.0 RBC 5.43 10^6u 4.04-6.13 Garrard % 6.2 % 0-12 RDW 13.4 % [...] Urobilinogen 0.2 0.2-1.0 Urine RBC N16-20 Specific Spencer 1.020 1.010-1.020 Urine WBC N3-5 Urine Bacteria 1+ Blood 1+ Negative Color Yellow Yellow Squamous Epithelial Cells 2+ Bilirubin Negative Negative Site UNK COMPLETE BLOOD COUNT - 02/25/14 12:58 Platelet 211 10^3u 142-424 MPV 11.0 FL 9.4-12.4 Garrard # 0.46 10^3u 0.0-1.0 RBC 4.49 10^6u 4.04-6.13 Garrard % 4.9 % 0-12 RDW 13.3 % [...] 3.3 2.4-3.5 Creatinine 1.5 MG/DL 0.7-1.5 Respiratory Panel-[facility] - 02/25/14 16 :44 [place] Not [...] Human Rhinovirus 4 ND Not Detecte d [id number] ND Not Detected FluA-H1-mccullough ND Not Detected [...] 329 10^3u 142-424 MPV 10.7 FL 9.4-12.4 Garrard # 0.67 10^3u 0.0-1.0 RBC 4.43 10^6u 4.04-6.13 Garrard % 5.8 % 0-12 RDW 13.3 % [...] 216 10^3u 142-424 MPV 11.2 FL 9.4-12.4 Garrard # 0.50 10^3u 0.0-1.0 RBC 4.35 10^6u 4.04-6.13 Garrard % 5.3 % 0-12 RDW 14.1 % [...] Urobilinogen 0.2 0.2-1.0 Urine RBC NONESEEN Specific Spencer 1.010 1.010-1.020 Urine WBC NONESEEN Urine Bacteria Trace Blood Negative Negative Color Yellow Yellow Squamous Epithelial Cells 1+ Bilirubin Negative Negative Site UNK EKG - 07/11/15 03:33 EKG SMR Urinalysis - 02/28/16 11:23 Glucose Negative Negative Leukocyte Negative Negative Nitrite Negative Negative pH 6.0 5.5-7.5 Urine Appearance Clear Clear Protein Negative Negative Ketones Negative Negative Urobilinogen 0.2 0.2-1.0 Urine RBC NONESEEN Specific Spencer 1.010 1.010-1.020 Urine WBC NONESEEN Blood Negative [...] NRG Blood erythrocyte morphology finding identification [facility] Comprehensive metabolic panel - 05/27/18 17:20 [...] OF GROWTH Isolated NRG Bacterial blood culture [id number] NRG FREE TEXT ENTRY 2 TESTING IN PROGRESS N FREE TEXT ENTRY 3 RML REPORTED ID 09/05/18 14:05 NRG Bacterial blood culture - 09/03/18 08:57 FREE TEXT EXTERNAL SUSCEPTIBILITY REPORTED 09-06-185. NRG QUANTITY OF GROWTH Isolated NRG Bacterial blood culture [id number] NRG FREE TEXT ENTRY 2 RML REPORTED [...] GROWTH Moderate Growth NRG Bacterial sputum culture [id number] NRG Dirithromycin susceptibility test by dis k [...] body temperature 36.8 NRG Radiology Report from [id number] on 012 08:23:00 Final ReportADMITTING DIAGNOSIS: Renal Failure line placementCHEST PORTABLE SINGLE VIEW - 01/28/2012 [facility] RESULT: INDICATION: Evaluation line placement.No prior examinations are available for comparison.FINDINGS: There is a right internal jugular central venouscatheter which has its tip in the superior vena cava. Heart sizeis normal. Lungs are clear. There is no pleural effusion orpneumothorax.IMPRESSION: 1. Stable appearance of the chest.2. Right internal jugular central venous catheter with its tipin the superior vena cava.Dictated on workstation # [id number] BY: DEZ ROGERS II, M.D., RADIOLOGISTELECTRONICALLY SIGNED BY: DEZ ROGERS II, M.D., RADIOLOGISTD Jan 28 2012 6:28AT FRANCOIS: Jan 29 2012 6:32AS Jan 29 2012 6:32A Radiology Report from [id number] on 08:23:00 Final ReportADMITTING DIAGNOSIS: Renal Failure CHANGE OF EXAM FOR CORRECT CHARGINGCT CHEST/ABD/PELVIS W/O - 01/28/2012 [facility] RESULT: INDICATION: Sepsis, fall, shortness of [...] about the right hip.Cholelithiasis.Dictated on workstation # [id number] BY: DEZ ROGERS II, M.D., RADIOLOGISTELECTRONICALLY SIGNED BY: DEZ ROGERS II, M.D., RADIOLOGISTD Jan 28 2012 6:05AT JUWAN: Jan 29 2012 6:32AS Jan 29 2012 6:32A Radiology Report from [id number] on 012 08:23:00 Final ReportADMITTING DIAGNOSIS: Renal Failure acute renal failureRENAL SONO BILATERAL - 01/28/2012 [facility] RESULT: INDICATION: Acute renal failure.TECHNIQUE: Multiple [...] renal cyst.Cholelithiasis and ascites.Dictated on workstation # [id number] RADIOLOGIST: DEZ ROGERS II, M.D., RADIOLOGISTELECTRONICALLY SIGNED BY: DEZ ROGERS II, M.D., RADIOLOGISTD Jan 28 2012 7:08AT SA2: Jan 29 2012 6:32AS Jan 29 2012 6:32A Radiology Report from [id number] on 012 15:40:00 Final ReportADMITTING DIAGNOSIS: Renal Failure ETT placementCHEST PORTABLE SINGLE VIEW - 01/29/2012 [facility] RESULT: INDICATION:Evaluate tube placement.COMPARISON:January 28, 2012.FINDINGS:The [...] and right pleural effusion.Dictated on workstation # [id number] BY: DEZ ROGERS II, M.D., RADIOLOGISTELECTRONICALLY SIGNED BY: DEZ ROGERS II, M.D., RADIOLOGISTD Jan 29 2012 1:23PT JM : Jan 29 2012 3:38PS Jan 29 2012 3:38P Radiology Report from [id number] on 012 09:01:00 Final ReportADMITTING DIAGNOSIS: Renal Failure MESENTERIC W/ POSSIBLE THROMBOLYSISMESENTERIC(VISCERAL)ARTERIOGRAM - 01/29/2012 [facility] RESULT: Indication: bowel. Nonpalpable pulse of the superiormesenteric artery intraoperatively. Concern for SMA thrombosis.Comparison: None.Latin Teacher: Dr. Musa.Total fluoroscopy time: 19.3 minutes.Total contrast: [...] the procedure on 01/29/2012.Dictated on workstation # [id number] BY: CARLTON MUSA M.D., ELECTRONICALLY SIGNED BY: CARLTON MUSA M.D., Lyndsey Feb 01 2012 7:49AT KB : Feb 01 2012 8:58AS Feb 01 2012 8:58A Radiology Report from [id number] on 08:46:00 Final ReportADMITTING DIAGNOSIS: Renal Failure resp distressCHEST PORTABLE SINGLE VIEW - 01/30/2012 [facility] RESULT: TIME: 4:42 a.m.INDICATION: Respiratory distressUpright [...] a telectasis and infiltrate.Dictated on workstation # [id number] BY: JONAH BRUCE M.D., RADIOLOGISTELECTRONICALLY SIGNED BY: JONAH BRUCE M.D., RADIOLOGISTD Jan 30 2012 7:17AT JUWAN: Jan 30 2012 8:44AS Jan 30 2012 8:44A Radiology Report from [id number] on 16:54:00 Final ReportADMITTING DIAGNOSIS: Renal Failure OR 25 post-op exp lapABDOMEN(KUB) - 01/30/2012 [facility] RESULT: INDICATION: Rule out postop foreign body.FINDINGS: Skin pedro are seen down the midline of the abdomen.The bowel gas pattern is nonspecific. A nasogastric tube is inplace. There are no unexpected postop foreign bodies.IMPRESSION: No unexpected postop foreign bodies.Dictated on workstation # [id number] BY: DEZ ROGERS II, M.D., RADIOLOGISTELECTRONICALLY SIGNED BY: DEZ ROGERS II, M.D., RADIOLOGISTD Jan 30 2012 3:35PT PH : Jan 30 2012 3:38PS Jan 30 2012 4:51P Radiology Report from [id number] on 11:33:00 Final ReportADMITTING DIAGNOSIS: Renal Failure Resp distressCHEST PORTABLE SINGLE VIEW - 01/31/2012 [facility] RESULT: INDICATION: Respiratory failureCOMPARISON: 01/30/2012FINDINGS: Single frontal view of the chest demonstratesunchanged infiltrate, effusion and atelectasis in the right lungbase. Left lung is clear. The heart size is prominent butstable. There is no pneumothorax. Tubes and lines are stable.IMPRESSION: Unchanged aeration of the right lung base.Dictated on workstation # [id number] BY: MARZENA LYLES M.D., RADIOLOGISTELECTRONICALLY SIGNED BY: MARZENA LYLES M.D., RADIOLOGISTD Jan 31 2012 6:57AT JUWAN: Jan 31 2012 11:31AS Jan 31 2012 11:31A Radiology Report from [id number] on 012 08:34:00 Final ReportADMITTING DIAGNOSIS: Renal Failure To assess resp. statusCHEST PORTABLE SINGLE VIEW - 02/01/2012 [facility] RESULT: Indication: Respiratory distress.Comparison: 01/31/2012.Findings: Single frontal view of the chest demonstratesworsening bilateral pulmonary infiltrates and atelectasis. Heartremains enlarged with trace interstitial edema. There is nopneumothorax.IMPRESSION: Worsening infiltrates, atelectasis and interstitialedema.Dictated on workstation # [id number] BY: MARZENA LYLES M.D., RADIOLOGISTELECTRONICALLY SIGNED BY: MARZENA LYLES M.D., RADIOLOGISTD Feb 01 2012 6:31AT KB : Feb 01 2012 8:31AS Feb 01 2012 8:31A Radiology Report from [id number] on 012 12:19:00 Final ReportADMITTING DIAGNOSIS: Renal Failure assess resp statusCHEST PORTABLE SINGLE VIEW - 02/02/2012 [facility] RESULT: INDICATION: Assess respiratory status.EXAMINATION: Frontal [...] noted but overall improving.Dictated on workstation # [id number] BY: KEIKO SIMMONS M.D., ELECTRONICALLY SIGNED BY: KEIKO SIMMONS M.D., D Feb 02 2012 8:27AT MAX: Feb 02 2012 12:16PS Feb 02 2012 12:16P Radiology Report from [id number] on 12:23:00 Final ReportADMITTING DIAGNOSIS: Renal Failure Dobhoff placementKUB (ABDOMEN) - 02/02/2012 [facility] RESULT: INDICATION: Dobbhoff catheter placementEXAMINATION: Abdomen 02/02/2012FINDINGS:Frontal abdomenA Dobbhoff catheter is noted. It is looped in the stomach butthe tip appears to extend into the second portion of theduodenum. The stomach is distended with air. No free air noted.IMPRESSION: 1. Dobbhoff catheter tip likely in the second portion of theduodenum.Dictated on workstation # [id number] BY: KEIKO SIMMONS M.D., ELECTRONICALLY SIGNED BY: KEIKO SIMMONS M.D., D Feb 02 2012 11:04AT JUWAN: Feb 02 2012 12:20PS Feb 02 2012 12:20P Radiology Report from [id number] on 09:13:00 Final ReportADMITTING DIAGNOSIS: Renal Failure R/O DVTEXT LOWER VENOUS DUPLEX UNI RT - 02/02/2012 [facility] RESULT: INDICATION: Right leg pain and [...] lower extremity deep venousthrombosis.Dictated on workstation # [id number] RADIOLOGIST: Edwar MELTON M.D., RADIOLOGISTELECTRONICALLY SIGNED BY: Edwar MELTON M.D., RADIOLOGISTD Feb 02 2012 1:17PT MAX: Feb 04 2012 9:11AS Feb 04 2012 9:11A Radiology Report from [id number] on 13:32:00 Final ReportADMITTING DIAGNOSIS: Renal Failure dobhoff placementKUB(ABD)TUBE PLCMT POST PYLORIC - 02/03/[address] [facility] RESULT: INDICATION: Dobhoff placement.TIME OF EXAM: [...] for malpositioned Dobhoff.Di ctated on workstation # [id number] BY: JOSUE CORDOVA M.D., RADIOLOGISTELECTRONICALLY SIGNED BY: JOSUE CORDOVA M.D., RADIOLOGISTD Feb 04 2012 11:53AT MSK: Feb 05 2012 1:30PS Feb 05 2012 1:30P Radiology Report from [id number] on 012 10:46:00 Final ReportADMITTING DIAGNOSIS: [facility]al [facility]2012 [facility] RESULT: INDICATION: Check respiratory status.EXAMINATION: Frontal chest 02/03/2012.COMPARISON: 02/03/2012 at earlier time.FINDINGS: The heart is stable in appearance. There is pulmonaryvascular congestion. Bibasilar infiltrates and effusions arenoted with pulmonary edema throughout remaining lungs. The chestappears overall stable. Right central line is unchanged with afeeding tube coursing beneath the diaphragm.IMPRESSION: 1. Stable chest.Dictated on wor kstation # [id number] BY: KEIKO SIMMONS M.D., ELECTRONICALLY SIGNED BY: KEIKO SIMMONS M.D., D Feb 03 2012 8:40AT SA2: Feb 03 2012 10:44AS Feb 03 2012 10:44A Radiology Report from [id number] on 012 09:52:00 Final ReportADMITTING DIAGNOSIS: Renal Failure To assess resp. statusCHEST PORTABLE SINGLE VIEW - 02/04/2012 [facility] RESULT: INDICATION: Pulmonary infiltrates.Time of exam: 4:49 AMComparison is made with prior study from one day earlier.Right-sided central line and Dobbhoff remain in place. Bibasilarinfiltrates and effusions persist. There is some perihilarinfiltrate noted. No pneumothorax is seen.IMPRESSION: No change when compared with exam one day earlier.Dictated on workstation # [id number] BY: JOSUE CORDOVA M.D., RADIOLOGISTELECTRONICALLY SIGNED BY: JOSUE CORDOVA M.D., RADIOLOGISTD Feb 04 2012 7:46AT RF : Feb 04 2012 9:49AS Feb 04 2012 9:49A Radiology Report from [id number] on 012 09:52:00 Final ReportADMITTING DIAGNOSIS: Renal Failure dh placementKUB(ABD)TUBE PLCMT POST PYLORIC - 02/04/2012 [facility] RESULT: INDICATION: Dobbhoff placement.Time of exam: 4:43 AMPortable supine view of the abdomen was obtained.FINDINGS: Dobbhoff catheter appears to have a tip at thejunction of the second and third portion of the duodenum. Thereis moderate gaseous distention to the stomach noted.IMPRESSION: Dobbhoff catheter has a tip at the junction of thesecond and third portion of the duodenum.Dictated on workstation # [id number] BY: JOSUE CORDOVA M.D., RAD IOLOGISTELECTRONICALLY SIGNED BY: JOSUE CORDOVA M.D., RADIOLOGISTD Feb 04 2012 7:40AT SA2: Feb 04 2012 9:49AS Feb 04 2012 9:49A Radiology Report from [id number] on 012 13:33:00 Final ReportADMITTING DIAGNOSIS: Renal Failure DHT placementKUB (ABDOMEN) - 02/04/2012 [facility] RESULT: INDICATION: Dobbhoff placement.Time of exam: 10:28 a.m.Portable view of the abdomen was obtained. There is Dobbhoffcatheter which has tip at the junction of the second and thirdportion of the duodenum. There is some linear atelectasis inright base.IMPRESSION: Satisfactory Dobbhoff placement.Dictated on workstation # [id number] BY: JOSUE CORDOVA M.D., RADIOLOGISTELECTRONICALLY SIGNED BY: JOSUE CORDOVA M.D., RADIOLOGISTD Feb 04 2012 11:55AT JUWAN: Feb 05 2012 1:31PS Feb 05 2012 1:31P Radiology Report from [id number] on 012 11:34:00 Final ReportADMITTING DIAGNOSIS: Renal Failure increased o2 requirementsCHEST PORTABLE SINGLE VIEW - 02/05/2012 [facility] RESULT: INDICATION: Hypoxia.COMPARISON: Study compared 02/04/2012.FINDINGS: Findings of pulmonary edema and vascular congestionhave improved from the previous study. There is some discoidright basilar subsegmental atelectasis with no other adversechange.IMPRESSION: Reduction in edema and failure pattern with mildright basilar atelectasis.Dictated on workstation # [id number] BY: DEMETRIUS KUMAR M.D., RADIOLOGISTELECTRONICALLY SIGNED BY: DEMETRIUS KUMAR M.D., RADIOLOGISTD Feb 05 2012 7:19AT AIG: Feb 05 2012 11:31AS Feb 05 2012 11:31A Radiology Report from [id number] on 09:28:00 Final ReportADMITTING DIAGNOSIS: Renal Failure SOACHEST PORTABLE SINGLE VIEW - 02/06/2012 [facility] RESULT: TIME: 5:54 a.m.INDICATION: Short of air.FINDINGS: Upright portable chest shows normal heart size andvascularity. There is bibasilar discoid atelectasis. There is noeffusion. PICC line tip is in the SVC. Dobbhoff tube is present.IMPRESSION: Bibasilar atelectasis. The vascularity has decreasedslightly since 02/05/2012.Dictated on workstation # [id number] BY: JONAH BRUCE M.D., RADIOLOGISTELECTRONICALLY SIGNED BY: JONAH BRUCE M.D., RADIOLOGIS TD Feb 06 2012 7:12AT SA2: Feb 06 2012 9:25AS Feb 06 2012 9:25A Radiology Report from [id number] on 012 10:21:00 Final ReportADMITTING DIAGNOSIS: Renal Failure Resp distressCHEST PORTABLE SINGLE VIEW - 02/07/2012 [facility] RESULT: INDICATION: Respiratory distress.Portable chest obtained at 5:24 a.m. and compared to yesterday.FINDINGS: Dobbhoff tube and central venous catheter areunchanged. The heart is normal in size. There is centralvascular congestion with patchy bibasilar infiltrate, rightgreater than left. There is no pneumothorax.IMPRESSION: Unchanged Dobbhoff tube and central venous catheter. Patchybibasilar infiltrates, right greater than left. No newabnormality compared to yesterday.Dictated on workstation # [id number] BY: CYNTHIA FERREIRA M.D., RADIOLOGISTELECTRONICALLY SIGNED BY: CYNTHIA FERREIRA M.D., RADIOLOGISTD Feb 07 2012 7:32AT FRANCOIS: Feb 07 2012 10:19AS Feb 07 2012 10:19A Radiology Report from [id number] on 012 15:10:00 Final ReportADMITTING DIAGNOSIS: Renal Failure tube placementCHEST PORTABLE SINGLE VIEW - 02/07/2012 [facility] RESULT: INDICATION: Endotracheal tube placementRESULT: A [...] significant change ofthe lungs.Dictated on workstation # [id number] BY: LUIS A JAMES M.D., ELECTRONICALLY SIGNED BY: LUIS A JAMES M.D., [place] Feb 07 2012 1:14PT MAX: Feb 07 2012 3:07PS Feb 07 2012 3:07P Radiology Report from [id number] on 012 08:36:00 Final ReportADMITTING DIAGNOSIS: Renal Failure R/O anastamosis leakGASTROGRAFIN SMALL BOWEL - 02/07/2012 [facility] RESULT: INDICATION: Suspicion for anastomotic leak.TECHNIQUE: [...] visualize extravasated or extraluminalcontrast.Dictated on workstation # [id number] BY: DEMETRIUS KUMAR M.D., RADIOLOGISTELECTRONICALLY SIGNED BY: DEMETRIUS KUMAR M.D., RADIOLOGISTD Feb 07 2012 4:03PT MICHELLE : Feb 11 2012 8:33AS Feb 11 2012 8:33A Radiology Report from [id number] on 012 15:55:00 Final ReportADMITTING DIAGNOSIS: Renal Failure anastamosis leakCT ABD/PELVIS W - 02/07/2012 [facility] RESULT: EXAMINATION: CT of the abdomen [...] and right-sided pleural effusion.Dictated on workstation # [id number] BY: PAIGE DYER M.D., RADIOLOGISTELECTRONICALLY SIGNED BY: PAIGE DYER M.D., RADIOLOGISTD Feb 07 2012 2:24PT FRANCOIS: Feb 07 2012 3:53PS Feb 07 2012 3:53P Radiology Report from [id number] on 012 12:07:00 Final ReportADMITTING DIAGNOSIS: Renal Failure fluid volume overloadCHEST PORTABLE SINGLE VIEW - 02/08/2012 [facility] RESULT: INDICATION: Fluid overload. Respiratory distress.Portable [...] increased from theprevious day.Dictated on workstation # [id number] BY: IVETT OPNCE M.D., RADIOLOGISTELECTRONICALLY SIGNED BY: IVETT PONCE M.D., RADIOLOGISTD Feb 08 2012 8:25AT JUWAN: Feb 08 2012 12:05PS Feb 08 2012 12:05P Radiology Report from [id number] on 012 11:31:00 Final ReportADMITTING DIAGNOSIS: Renal Failure intraabdominal fluid collectionCT ABDOMEN (WO CONTRAST) - 02/08/2012 [facility] RESULT: INDICATION: Abdominal fluid collection.FINDINGS: Patient [...] was therefore not performed.Dictated on workstation # [id number] BY: CYNTHIA FERREIRA M.D., RADIOLOGISTELECTRONICALLY SIGNED BY: CYNTHIA FERREIRA M.D., RADIOLOGISTD Feb 08 2012 10:02AT AIG: Feb 08 2012 11:29AS Feb 08 2012 11:29A Radiology Report from [id number] on 012 06:10:00 Final ReportADMITTING DIAGNOSIS: Renal Failure to assess resp. statusCHEST PORTABLE SINGLE VIEW - 02/09/2012 [facility] RESULT: INDICATION: Fluid overload.COMPARISON: Comparison made with prior examination of 02/08/2012.FINDINGS: Lines and tubes are in satisfactory position. Theheart size is stable. There is some central pulmonary venouscongestion. There are bibasilar infiltrates. There is no pleuraleffusion or pneumothorax. Mediastinum is unremarkable.IMPRESSION: 1. Interval improvement in the bibasilar pulmonary infiltrates.2. Persistent central pulmonary venous congestion.Dictated on workstation # [id number] BY: DEZ ROGERS II, M.D., RADIOLOGISTELECTRONICALLY SIGNED BY: DEZ ROGERS II, M.D., RADIOLOGISTD Feb 09 2012 8:16AT MK4: Feb 11 2012 6:07AS Feb 11 2012 6:07A Radiology Report from [id number] on 012 16:58:00 Final ReportADMITTING DIAGNOSIS: Renal Failure POST OP JEJUNUMOSTOMY TUBE PLACEMENTABDOMEN(KUB) - 02/09/2012 [facility] RESULT: Single AP view of the abdomen.INDICATION: Jejunostomy tube placement.FINDINGS: Jejunostomy tube is demonstrated. There is no evidenceof unexpected radiopaque foreign body. The bowel gas patternappears nonobstructed.Patient is status post previous bilateral hip arthroplasty.IMPRESSION: Single AP view of the abdomen demonstrates a newlyplaced jejunostomy tube. No supine evidence of free air isdemonstrated. No unexpected radiopaque foreign body is seen.Dictated on workstation # [id number] BY: PAIGE DYER M.D., RADIOLOGISTELECTRONICALLY SIGNED BY: PAIGE DYER M.D., RADIOLOGISTD Feb 09 2012 2:25PT SA2: Feb 09 2012 4:56PS Feb 09 2012 4:56P Radiology Report from [id number] on 012 13:45:00 Final ReportADMITTING DIAGNOSIS: Renal Failure Resp distressCHEST PORTABLE SINGLE VIEW - 02/10/2012 [facility] RESULT: Portable chest, February 10, 2012. [...] appearance of bibasilar infiltrates.Dictated on workstation # [id number] BY: PAIGE DYER M.D., RADIOLOGISTELECTRONICALLY SIGNED BY: PAIGE DYER M.D., RADIOLOGISTD Feb 10 2012 11:33AT SA2: Feb 10 2012 11:43AS Feb 10 2012 1:43P Radiology Report from [id number] on 012 16:46:00 Final ReportADMITTING DIAGNOSIS: Renal Failure picc placementCHEST PIC LINE PLACEMENT-ONE VIE - 02/10/2012 [facility] RESULT: EXAMINATION: Portable chest.Compared to prior [...] tube remains appropriately positioned.Dictated on workstation # [id number] BY: PAIGE DYER M.D., RADIOLOGISTELECTRONICALLY SIGNED BY: PAIGE DYER M.D., RADIOLOGISTD Feb 10 2012 4:34PT FRANCOIS: Feb 10 2012 4:38PS Feb 10 2012 4:44P Radiology Report from [id number] on 012 17:08:00 Final ReportADMITTING DIAGNOSIS: Renal Failure Resp distressCHEST PORTABLE SINGLE VIEW - 02/11/2012 [facility] RESULT: INDICATION: Respiratory distressEXAMINATION: Chest AP [...] alignment. The chest otherwisenormal.Dictated on workstation # [id number] BY: SANJIV WESTON M.D., RADIOLOGISTELECTRONICALLY SIGNED BY: SANJIV WESTON M.D., RADIOLOGISTD Feb 11 2012 8:31AT MAX: Feb 11 2012 5:05PS Feb 11 2012 5:05P Radiology Report from [id number] on 012 08:56:00 Final ReportADMITTING DIAGNOSIS: Renal Failure Resp distressCHEST PORTABLE SINGLE VIEW - 02/12/2012 [facility] RESULT: INDICATION: Respiratory distressEXAMINATION: Chest AP [...] is in good alignment.Dictated on workstation # [id number] BY: SANJIV WESTON M.D., RADIOLOGISTELECTRONICALLY SIGNED BY: SANJIV WESTON M.D., RADIOLOGISTD Feb 12 2012 6:52AT MAX: Feb 12 2012 8:54AS Feb 12 2012 8:54A Radiology Report from [id number] on 012 13:49:00 Final ReportADMITTING DIAGNOSIS: Renal Failure unidentified bleedMESENTERIC(VISCERAL)ARTERIOGRAM - 02/12/[facility] RESULT: INDICATION: Recurrent GI bleed, most [...] femoralartery and arteriotomy was upsized to a 4-Belarusian sheath. Next, a4-[place]ian Cobra catheter was advanced into the superiormesenteric [...] addressed at this time.Dictated on workstation # [id number] BY: Edwar MELTON M.D., RADIOLOGISTELECTRONICALLY SIGNED BY: Edwar MELTON M.D., RADIOLOGISTD Feb 14 2012 1:28PT FRANCOSI: Feb 15 2012 1:46PS Feb 15 2012 1:46P Radiology Report from [id number] on 012 09:25:00 Final ReportADMITTING DIAGNOSIS: Renal Failure to assess resp. statusCHEST PORTABLE SINGLE VIEW - 02/13/2012 [facility] RESULT: INDICATION: Respiratory distress.2 frontal radiographs [...] aboutthe areas of infiltrate.Dictated on workstation # [id number] BY: MARITZA MENDOZA D.O., RADIOLOGISTELECTRONICALLY SIGNED BY: MARITZA MENDOZA D.O., RADIOLOGISTD Feb 13 2012 7:45AT MAX: Feb 13 2012 8:02AS Feb 13 2012 9:23A Radiology Report from [id number] on 012 08:34:00 Final ReportADMITTING DIAGNOSIS: Renal Failure Resp distressCHEST PORTABLE SINGLE VIEW - 02/14/[address] [facility] RESULT: INDICATION: Respiratory distress.TIME OF EXAM: [...] from thecomparison study 02/13/2012.Dictated on workstation # [id number] BY: LEW LYONS M.D., RADIOLOGISTELECTRONICALLY SIGNED BY: LEW LYONS M.D., RADIOLOGISTD Feb 14 2012 7:54AT AIG: Feb 14 2012 8:32AS Feb 14 2012 8:32A Radiology Report from [id number] on 09:17:00 Final ReportADMITTING DIAGNOSIS: Renal Failure to assess resp. statusCHEST PORTABLE SINGLE VIEW - 02/15/2012 [facility] RESULT: INDICATION: Respiratory distressCOMPARISON: 02/14/2012FINDINGS:Again seen is patchy infiltrate in the bases bilaterally, leftgreater than right. The heart remains stable. There is nopulmonary edema, pneumothorax or pleural effusion. Tubes andlines are stable.IMPRESSION: Unchanged basilar infiltrates.Dictated on workstation # [id number] BY: MARZENA LYLES M.D., RADIOLOGISTELECTRONICALLY SIGNED BY: MARZENA LYLES M.D., RADIOLOGISTD Feb 15 2012 6:30AT RF : Feb 15 2012 9:14AS Feb 15 2012 9:14A Radiology Report from [id number] on 012 11:06:00 Final ReportADMITTING DIAGNOSIS: Renal Failure Resp. assessmentCHEST PORTABLE SINGLE VIEW - 02/16/[address] [facility] RESULT: INDICATION: Shortness of breath.Comparison made with prior examination from February 15, 2012FINDINGS: The heart size is normal. There is some venouscongestion. There are bibasilar infiltrates. There is no pleuraleffusion or pneumothorax. The mediastinum is unremarkable.IMPRESSION: Bibasilar pulmonary infiltrates.Mild central pulmonary venous congestion.Dictated on workstation # [id number] BY: DEZ ROGERS II, M.D., RADIOLOGISTELECTRONICALLY SIGNED BY: DEZ ROGERS II, M.D., RADIOLOGISTD Feb 16 2012 7:50AT JUWAN: Feb 16 2012 11:03AS Feb 16 2012 11:03A Radiology Report from [id number] on 08:56:00 Final ReportADMITTING DIAGNOSIS: [facility]al Failure [facility] RESULT: INDICATION: Respiratory distress.EXAMINATION: Portable chest at 6:04 a.m.FINDINGS: The right upper extremity PICC line tip projects overthe SVC. The heart size and pulmonary vascularity are normal.There has been some interval improvement of bibasilarinterstitial infiltrates compared to the previous day.IMPRESSION: Improving basilar pulmonary infiltrates.Dictated on workstation # [id number] BY: HARRY NARAYAN M.D., RADIOLOGISTELECTRONICALLY SIGNED BY: HARRY NARAYAN M.D., RADIOLOGISTD Feb 17 2012 8:37AT IMS: Feb 17 2012 8:54AS Feb 17 2012 8:54A Radiology Report from [id number] on 08:13:00 Final ReportADMITTING DIAGNOSIS: Renal Failure to assess resp. status[facility] - [facility]/18/2012 [facility] RESULT: INDICATION: Pulmonary infiltrates.Time of exam: 5:33 a.m.Correlation is made with prior study one day earlier. Rightupper extremity line has tip overlying the SVC. Heart size isstable. Basilar infiltrates appear to be slightly worse ontoday''s study. Minimal infiltrate right midlung is also noted.There is no effusion or pneumothorax.IMPRESSION: Slight increase in basilar infiltrates when comparedto exam one day earlier.Dictated on workstation # [id number] BY: JOSUE D TASHA, M.D., RADIOLOGISTELECTRONICALLY SIGNED BY: JOSUE CORDOVA M.D., RADIOLOGISTD Feb 18 2012 6:25AT JUWAN: Feb 18 2012 8:11AS Feb 18 2012 8:11A Radiology Report from [id number] on 012 08:16:00 Final ReportADMITTING DIAGNOSIS: Renal Failure today- swallow failedMODIFIED BARIUM SWALLOW - 02/18/2012 [facility] RESULT: INDICATION: Dysphagia.EXAMINATION: Video fluoroscopy was performed in the routinefashion, with speech pathology, in the upright and lateralposition.Patient was given thin barium, nectar material, as well aspudding material and then barium-coated cookie. There is weakand discoordinated swallowing with evidence of silent aspirationwith all materials. There is no residual in the pharyngealrecesses.IMPRESSION: Evidence of aspiration, as above.Dictated on workstation # [id number] BY: CYNTHIA FERREIRA M.D., RADIOLOGISTELECTRONICALLY SIGNED BY: CYNTHIA FERREIRA M.D., RADIOLOGISTD Feb 18 2012 4:27PT AS6: Feb 19 2012 8:14AS Feb 19 2012 8:14A Radiology Report from [id number] on 012 08:21:00 Final ReportADMITTING DIAGNOSIS: Renal Failure change in mental status - CT of head without contrastCT HEAD (W/O CONTRAST ) - 02/21/2012 [facility] RESULT: INDICATION: Change in mental status.COMPARISON: [...] No hemorrhage oracute-appearing abnormality.Dictated on workstation # [id number] BY: DEMETRIUS KUMAR M.D., RADIOLOGISTELECTRONICALLY SIGNED BY: DEMETRIUS KUMAR M.D., RADIOLOGISTD Feb 21 2012 4:14PT AS6: Feb 22 2012 8:19AS Feb 22 2012 8:19A Encounters ACCT No. Visit Date/Time Discharge Status Pt. Type Provider Facility Loc./Unit Complaint [id number] 02/28/2016 10:00:00 02/28/2016 10:00 :00 DIS Outpatient JUAN MCCABE MD, [facility] OTHER [id number] 02/23/2016 10:18:00 02/23/2016 10:18 :00 DIS Outpatient JUAN MCCABE MD, [facility] OTHER [id number] 07/07/2015 18:20:00 07/19/2015 13:25 :00 DIS Inpatient MARQUITA PHELAN, [facility] [id number] 07/07/2015 18:20:00 07/07/2015 18:20 :00 DIS Outpatient DWAINE PHELAN, [facility] OTHER [id number] 02/11/2015 10:20:00 02/11/2015 10:20 :00 DIS Outpatient JUANITO PHELAN, [facility] OTHER [id number] 11/16/2014 10:59:00 11/16/2014 10:59 :00 DIS Outpatient JUANITO PHELAN, [facility] OTHER [id number] 09/09/2014 14:58:00 09/09/2014 23:59 :59 CLS Outpatient JUANITO PHELAN, [facility] OTHER [id number] 02/25/2014 12:39:00 02/25/2014 12:39 :00 DIS Outpatient JUANITO PHELAN, [facility] OTHER [id number] 12/22/2013 11:36:00 12/22/2013 11:36 :00 DIS Outpatient JUANITO PHELAN, [facility] OTHER [id number] 10/19/2013 05:30:00 10/19/2013 05:30 :00 [id number] 10/19/2013 04:03:00 10/19/2013 05:30 :00 DIS Emergency JUANITO PHELAN, [facility] ER [id number] 10/19/2013 03:32:00 10/19/2013 03:32 :00 [facility] [id number] 10/07/2013 12:46:00 10/07/2013 12:46 :00 DIS Outpatient JUANITO PHELAN, [facility] OTHER [id number] 07/22/2013 10:23:00 07/22/2013 10:23 :00 DIS Outpatient JUANITO PHELAN, [facility] OTHER [id number] 07/02/2013 16:02:00 07/02/2013 16:02 :00 DIS Outpatient JUANITO PHELAN, [facility] OTHER [id number] 06/09/2013 06:29:00 06/09/2013 06:29 :00 DIS Outpatient JUANITO PHELAN, [facility] GLC [id number] 06/02/2013 09:51:00 06/02/2013 09:51 :00 DIS Outpatient JUANITO PHELAN, [facility] OTHER [id number] 05/25/2013 11:01:00 05/25/2013 11:01 :00 DIS Outpatient JUANITO PHELAN, [facility] GLC [id number] 05/05/2013 10:00:00 05/05/2013 10:00 :00 DIS Outpatient JUANITO PHELAN, [facility] GLC [id number] 04/27/2013 14:14:00 04/27/2013 14:14 :00 DIS Outpatient JUANITO PHELAN, [facility] GLC [id number] 03/31/2013 09:41:00 03/31/2013 09:41 :00 DIS Outpatient JUANITO PHELAN, [facility] GLC [id number] 03/10/2013 08:20:00 03/10/2013 08:20 :00 DIS Outpatient JUANITO PHELAN, [facility] GLC [id number] 03/02/2013 15:42:00 03/02/2013 15:42 :00 DIS Outpatient JUANITO PHELAN, [facility] GLC [id number] 02/27/2013 08:22:00 02/27/2013 08:22 :00 DIS Outpatient JUANITO PHELAN, [facility] [id number] 02/25/2013 07:01:00 02/25/2013 07:01 :00 DIS Outpatient JUANITO PHELAN, [facility] [id number] 02/23/2013 08:17:00 02/23/2013 08:17 :00 DIS Outpatient JUANITO PHELAN, [facility] GLC [id number] 02/22/2013 06:31:00 02/22/2013 06:31 :00 DIS Outpatient JUANITO PHELAN, [facility] [id number] 02/21/2013 09:14:00 02/21/2013 09:14 :00 DIS Outpatient JUANITO PHELAN, [facility] GLC [id number] 02/20/2013 08:29:00 02/20/2013 08:29 :00 DIS Outpatient JUANITO PHELAN, [facility] [id number] 02/19/2013 08:19:00 02/19/2013 08:19 :00 DIS Outpatient JUANITO PHELAN, [facility] [id number] 02/16/2013 09:47:00 02/16/2013 09:47 :00 DIS Outpatient JUANITO PHELAN, [facility] GLC [id number] 02/12/2013 06:11:00 02/12/2013 06:11 :00 DIS Outpatient JUANITO PHELAN, [facility] [id number] 02/11/2013 06:42:00 02/11/2013 06:42 :00 DIS Outpatient JUANITO PHELAN, [facility] GLC [id number] 02/10/2013 06:27:00 02/10/2013 06:27 :00 DIS Outpatient JUANITO PHELAN, [facility] GLC [id number] 02/06/2013 09:27:00 02/06/2013 09:27 :00 DIS Outpatient JUANITO PHELAN, [facility] [id number] 02/02/2013 06:12:00 02/02/2013 06:12 :00 DIS Outpatient JUANITO PHELAN, [facility] [id number] 01/29/2013 06:30:00 01/29/2013 06:30 :00 DIS Outpatient JUANITO PHELAN, [facility] [id number] 01/26/2013 06:37:00 01/26/2013 06:37 :00 DIS Outpatient JUANITO PHELAN, [facility] [id number] 01/23/2013 06:48:00 01/23/2013 06:48 :00 DIS Outpatient JUANITO PHELAN, [facility] GLC [id number] 01/14/2013 09:13:00 01/14/2013 09:13 :00 DIS Outpatient JUANITO PHELAN, [facility] OTHER [id number] 12/30/2012 12:59:00 12/30/2012 12:59 :00 DIS Outpatient JUANITO PHELAN, [facility] [id number] 12/03/2012 06:49:00 12/03/2012 06:49 :00 DIS Outpatient JUANITO PHELAN, [facility] GLC [id number] 11/07/2012 06:29:00 11/07/2012 06:29 :00 DIS Outpatient JUANITO PHELAN, [facility] GLC [id number] 10/29/2012 12:05:00 10/29/2012 12:05 :00 DIS Outpatient JUANITO PHELAN, [facility] OTHER [id number] 10/08/2012 11:32:00 10/08/2012 11:32 :00 DIS Outpatient JUANITO PHELAN, [facility] OTHER [id number] 09/24/2012 08:23:00 09/24/2012 08:23 :00 DIS Outpatient JUANITO PHELAN, [facility] GLC [id number] 09/17/2012 12:27:00 09/17/2012 12:27 :00 DIS Outpatient JUANITO PHELAN, [facility] OTHER [id number] 08/26/2012 09:54:00 08/26/2012 09:54 :00 DIS Outpatient JUANITO PHELAN, [facility] GLC [id number] 08/06/2012 09:51:00 08/06/2012 09:51 :00 DIS Outpatient JUANITO PHELAN, [facility] OTHER [id number] 07/30/2012 23:15:00 08/03/2012 15:30 :00 DIS Inpatient LEN PHELAN, [facility] NS1 [id number] 07/30/2012 21:30:00 07/30/2012 23:15 :00 DIS Emergency JUANITO PHELAN, [facility] OTHER [id number] 07/30/2012 22:20:00 07/30/2012 22:20 :00 DIS Outpatient LEN PHELAN, [facility] OTHER [id number] 07/30/2012 21:14:00 07/30/2012 21:14 :00 DIS Outpatient LEN PHELAN, [facility] OTHER [id number] 07/29/2012 06:12:00 07/29/2012 06:12 :00 DIS Outpatient JUANIOT PHELAN, [facility] GLC [id number] 07/25/2012 11:22:00 07/25/2012 11:22 :00 DIS Outpatient JUANITO PHELAN, [facility] GLC [id number] 07/15/2012 16:26:00 07/15/2012 16:26 :00 DIS Outpatient JUANITO PHELAN, [facility] GLC [id number] 06/10/2012 12:26:00 06/10/2012 12:26 :00 DIS Outpatient JUANITO PHELAN, [facility] GLC [id number] 06/09/2012 06:36:00 06/09/2012 06:36 :00 DIS Outpatient JUANITO PHELAN, [facility] GLC [id number] 05/29/2012 11:46:00 05/29/2012 11:46 :00 DIS Outpatient JUANITO PHELAN, [facility] GLC [id number] 05/20/2012 07:51:00 05/20/2012 07:51 :00 DIS Outpatient JUANITO PHELAN, [facility] GLC [id number] 05/12/2012 15:10:00 05/14/2012 17:30 :00 DIS Inpatient JUANITO PHELAN, [facility] NS1 [id number] 05/12/2012 13:09:00 05/12/2012 13:09 :00 DIS Outpatient JUANITO PHELAN, [facility] OTHER [id number] 05/05/2012 08:05:00 05/05/2012 08:05 :00 DIS Outpatient JUANITO PHELAN, [facility] GLC [id number] 04/28/2012 07:41:00 04/28/2012 07:41 :00 DIS Outpatient JUANITO PHELAN, [facility] [id number] 04/25/2012 09:03:00 04/25/2012 09:03 :00 DIS Outpatient JUANITO PHELAN, [facility] [id number] 04/21/2012 06:34:00 04/21/2012 06:34 :00 DIS Outpatient JUANITO PHELAN, [facility] [id number] 04/07/2012 14:25:00 04/14/2012 17:00 :00 DIS Inpatient JUANITO PHELAN, [facility] NS1 [id number] 04/10/2012 10:19:00 04/10/2012 23:59 :59 CLS Emergency [facility]ITO PHEL[facility] [id number] 04/10/2012 10:19:00 04/10/2012 23:59 :[id number]/10/2012 10:19:00 04/10/2012 23:59 :59 CLS Outpatient [facility]UANITO PHELAN [facility] [id number] 04/10/2012 10:19:00 04/10/2012 23:59 :59 CLS Outpatient JUANITO PHELAN, [facility] OTHER [id number] 04/10/2012 10:19:00 04/10/2012 23:59 :59 CLS Emergency FREDY HARRINGTON MD [id number] 04/10/2012 10:19:00 04/10/2012 23:59 :59 CLS Out[address]ANITO PHEL[address] [facility] [id number] 04/07/2012 12:40:00 04/07/2012 14:25 :00 DIS Emergency JUANITO PHELAN, [facility] ER [id number] 04/07/2012 13:00:00 04/07/2012 13:00 :00 DIS Outpatient JUANITO PHELAN, [facility] OTHER [id number] 04/07/2012 12:28:00 04/07/2012 12:28 :00 DIS Emergency JUANITO PHELAN, [facility] ER [id number] 01/27/2012 11:25:00 01/27/2012 23:59 :59 CLS Outpatient KRISTIN SOLOMON MD [id number] 01/26/2012 23:45:00 01/26/2012 23:59 :59 CLS Outpatient KRISTIN SOLOMON MD [id number] 01/26/2012 23:00:00 01/26/2012 23:59 :59 CLS Emergency KRISTIN SOLOMON MD [id number] 01/26/2012 22:26:00 01/26/2012 23:59 :59 CLS Outpatient KRISTIN SOLOMON MD [id number] 01/16/2012 15:55:00 01/16/2012 23:59 :59 CLS Outpatient KRISTIN SOLOMON MD [id number] 01/16/2012 14:50:00 01/16/2012 23:59 :59 CLS Outpatient FREDY HARRINGTON MD [id number] 01/16/2012 14:21:00 01/16/2012 23:59 :59 CLS Outpatient FREDY HARRINGTON MD [id number] 01/16/2012 13:57:00 01/16/2012 23:59 :59 CLS Outpatient FREDY HARRINGTON MD [id number] 01/01/2012 15:52:00 01/01/2012 23:59 :59 CLS Outpatient KRISTIN SOLOMON MD [id number] 12/14/2011 08:03:00 12/14/2011 23:59 :59 CLS Outpatient KRISTIN SOLOMON MD [id number] 12/14/2011 08:03:00 12/14/2011 23:59 :59 CLS Outpatient KRISTIN SOLOMON MD [id number] 12/07/2011 12:06:00 12/07/2011 23:59 :59 CLS Outpatient KRISTIN SOLOMON MD [id number] 12/03/2011 11:06:00 12/03/2011 23:59 :59 CLS Outpatient KRISTIN SOLOMON MD [id number] 11/27/2011 12:00:00 11/27/2011 23:59 :59 CLS Outpatient ANDRES DECKER MD [id number] 11/26/2011 18:16:00 11/26/2011 23:59 :59 CLS Outpatient KRISTIN SOLOMON MD [id number] 11/22/2011 09:45:00 11/22/2011 23:59 :59 CLS Outpatient KRISTIN SOLOMON MD [id number] 11/22/2011 09:45:00 11/22/2011 23:59 :59 CLS Outpatient KRISTIN SOLOMON MD [id number] 11/08/2011 16:25:00 11/08/2011 23:59 :59 CLS Outpatient KRISTIN SOLOMON MD [id number] 11/08/2011 15:05:00 11/08/2011 23:59 :59 CLS Emergency KRISTIN SOLOMON MD [id number] 11/08/2011 14:40:00 11/08/2011 23:59 :59 CLS Outpatient KRISTIN SOLOMON MD [id number] 11/08/2011 14:22:00 11/08/2011 23:59 :59 CLS Outpatient JOANNA ISIDRO MD [id number] 10/13/2011 23:00:00 10/13/2011 23:59 :59 CLS Outpatient KRISTIN SOLOMON MD [id number] 10/13/2011 22:15:00 10/13/2011 23:59 :59 CLS Emergency KRISTIN SOLOMON MD [id number] 10/10/2011 14:53:00 10/10/2011 23:59 :59 CLS Outpatient KRISTIN SOLOMON MD [id number] 09/30/2011 10:35:00 09/30/2011 23:59 :59 CLS Emergency KRISTIN SOLOMON MD [id number] 09/30/2011 10:35:00 09/30/2011 23:59 :59 CLS Outpatient KEIKO SEVERINO [id number] 09/04/2011 08:54:00 09/04/2011 23:59 :59 CLS Outpatient KRISTIN SOLOMON MD [id number] 09/03/2011 09:00:00 09/03/2011 23:59 :59 CLS Outpatient KRISTIN SOLOMON MD [id number] 09/02/2011 08:52:00 09/02/2011 23:59 :59 CLS Outpatient KRISTIN SOLOMON MD [id number] 09/01/2011 08:28:00 09/01/2011 23:59 :59 CLS Outpatient FREDY HARRINGTON MD [id number] 08/31/2011 09:03:00 08/31/2011 23:59 :59 CLS Outpatient KRISTIN SOLOMON MD [id number] 08/30/2011 08:55:00 08/30/2011 23:59 :59 CLS Outpatient KRISTIN SOLOMON MD [id number] 08/29/2011 08:51:00 08/29/2011 23:59 :59 CLS Outpatient KRISTIN SOLOMON MD [id number] 08/28/2011 14:42:00 08/28/2011 23:59 :59 CLS Outpatient KRISTIN SOLOMON MD [id number] 08/20/2011 15:06:00 08/20/2011 23:59 :59 CLS Outpatient KRISTIN SOLOMON MD [id number] 07/26/2011 11:30:00 07/26/2011 23:59 :59 CLS Outpatient KRISTIN SOLOMON MD [id number] 07/26/2011 11:30:00 07/26/2011 23:59 :59 CLS Outpatient KRISTIN SOLOMON MD [id number] 07/12/2011 10:00:00 07/12/2011 23:59 :59 CLS Outpatient KRISTIN SOLOMON MD [id number] 07/12/2011 10:00:00 07/12/2011 23:59 :59 CLS Outpatient KRISTIN SOLOMON MD [id number] 07/03/2011 15:00:00 07/03/2011 23:59 :59 CLS Outpatient KRISTIN SOLOMON MD [id number] 06/28/2011 12:15:00 06/28/2011 23:59 :59 CLS Outpatient KRISTIN SOLOMON MD [id number] 06/28/2011 12:15:00 06/28/2011 23:59 :59 CLS Outpatient KRISTIN SOLOMON MD [id number] 05/31/2011 08:19:00 05/31/2011 23:59 :59 CLS Outpatient KRISTIN SOLOMON MD [id number] 05/29/2011 16:02:00 05/29/2011 23:59 :59 CLS Outpatient KRISTIN SOLOMON MD [id number] 05/21/2011 23:20:00 05/21/2011 23:59 :59 CLS Outpatient KRISTIN SOLOMON MD [id number] 05/20/2011 23:20:00 05/20/2011 23:59 :59 CLS Emergency KRISTIN SOLOMON MD [id number] 05/20/2011 23:20:00 05/20/2011 23:59 :59 CLS Outpatient ESTEFANIA CUETO DO [id number] 05/20/2011 22:53:00 05/20/2011 23:59 :59 CLS Outpatient ESTEFANIA CUETO DO [id number] 05/07/2011 08:10:00 05/07/2011 23:59 :59 CLS Emergency KRISTIN SOLOMON MD [id number] 05/07/2011 07:40:00 05/07/2011 23:59 :59 CLS Outpatient KRISTIN SOLOMON MD [id number] 05/06/2011 15:45:00 05/06/2011 23:59 :59 CLS Emergency KRISTIN SOLOMON MD [id number] 05/06/2011 15:45:00 05/06/2011 23:59 :59 CLS Outpatient FREDY HARRINGTON MD [id number] 05/06/2011 15:23:00 05/06/2011 23:59 :59 CLS Outpatient FREDY HARRINGTON MD [id number] 05/01/2011 09:30:00 05/01/2011 23:59 :59 CLS Outpatient ANDRES DECKER MD [id number] 03/21/2011 16:40:00 03/21/2011 23:59 :59 CLS Outpatient KRISTIN SOLOMON MD [id number] 03/21/2011 15:10:00 03/21/2011 23:59 :59 CLS Outpatient KRISTIN SOLOMON MD [id number] 02/05/2011 18:00:00 02/05/2011 23:59 :59 CLS Outpatient KRISTIN SOLOMON MD [id number] 01/26/2011 14:10:00 01/26/2011 23:59 :59 CLS Outpatient KRISTIN SOLOMON MD [id number] 12/28/2010 16:13:00 12/28/2010 23:59 :59 CLS Outpatient KRISTIN SOLOMON MD [id number] 12/06/2010 15:15:00 12/06/2010 23:59 :59 CLS Outpatient KRISTIN SOLOMON MD [id number] 11/29/2010 13:25:00 11/29/2010 23:59 :59 CLS Outpatient KRISTIN SOLOMON MD [id number] 11/23/2010 15:10:00 11/23/2010 23:59 :59 CLS Outpatient KRISTIN SOLOMON MD [id number] 11/13/2010 13:27:00 11/13/2010 23:59 :59 CLS Outpatient JOANNA ISIDRO MD [id number] 11/13/2010 12:00:00 11/13/2010 23:59 :59 CLS Emergency KRISTIN SOLOMON MD [id number] 10/24/2010 10:30:00 10/24/2010 23:59 :59 CLS Outpatient ANDRES DECKER MD [id number] 09/25/2010 11:07:00 09/25/2010 23:59 :59 CLS Outpatient KRISTIN SOLOMON MD [id number] 09/25/2010 11:05:00 09/25/2010 23:59 :59 CLS KRISTIN Alanis MD [id number] 09/25/2010 10:42:00 09/25/2010 23:59 :59 CLS Outpatient KRISTIN SOLOMON MD [id number] 09/12/2010 09:30:00 09/12/2010 23:59 :59 CLS Outpatient DARA AGUSTIN MD R [id number] 2010 08:40:00 2010 23:59 :59 CLS Outpatient DARA AGUSTIN MD R [id number] 07/12/2010 09:32:00 07/12/2010 23:59 :59 CLS Outpatient KRISTIN SOLOMON MD [id number] 07/11/2010 10:50:00 07/11/2010 23:59 :59 CLS Outpatient DARA AGUSTIN MD R [id number] 06/07/2010 13:45:00 06/07/2010 23:59 :59 CLS Emergency KRISTIN SOLOMON MD [id number] 06/07/2010 13:20:00 06/07/2010 23:59 :59 CLS Outpatient KRISTIN SOLOMON MD [id number] 06/01/2010 15:58:00 06/01/2010 23:59 :59 CLS Outpatient KRISTIN SOLOMON MD [id number] 04/05/2010 15:07:00 04/05/2010 23:59 :59 CLS Outpatient KRISTIN SOLOMON MD [id number] 02/24/2010 12:57:00 02/24/2010 23:59 :59 CLS Outpatient KRISTIN SOLOMON MD [id number] 01/27/2012 01:25:00 Inpatient KRISTIN SOLOMON MD [id number] 11/08/2011 16:50:00 Inpatient KRISTIN SOLOMON MD [id number] 05/21/2011 01:00:00 Inpatient KRISTIN SOLOMON MD [id number] 03/23/2011 09:30:00 Inpatient KRISTIN SOLOMON MD [id number] 11/13/2010 13:45:00 Inpatient KRISTIN SOLOMON MD [id number] 05/10/2010 15:50:00 Inpatient MARQUITA PHELAN, EBEN Kaufman [id number] 05/03/2010 17:10:00 Inpatient NIKOLE PHELAN, DARA [place] [id number] 03/07/2016 11:12:35 23:59:59 CLS Outpatient Cynthia Noriega [id number] 10/21/2015 13:20:32 10/21/2015 13:2 0:33 Outpatient [facility] U [id number] 01/18/2015 13:57:00 23:59:00 DIS Outpatient Vinnie Monterroso Via [facility] ENT PO 1 WK L TYMPANO MASTOIDECT JESSICA [id number] 01/10/2015 06:12:00 15:22:00 DIS Outpatient Vinnie Monterroso Via [facility] Surgery SURGERY [id number] 12/27/2014 13:35:00 23:59:00 DIS Outpatient Vinnie Monterroso Via [facility] ENT RCK 1 MO SINUS [id number] 12/01/2014 15:42:00 23:59:00 DIS Outpatient Vinnie Monterroso Via [facility] ENT po ess [id number] 11/26/2014 07:46:00 11:39:00 DIS Outpatient Vinnie Monterroso [facility] Surgery SURGERY [id number] 10/27/2014 14:29:00 23:59:00 DIS Outpatient Michelle Duque V ia [facility] Audio Michelle - Medicare - Regehr [id number] 10/27/2014 12:42:00 23:59:00 DIS Outpatient Vinnie Monterroso Via [facility] ENT CHECK EARS AND SINUS [id number] 10/17/2018 17:45:00 10/17/2018 23:59: 59 CLS Outpatient GAURAV ALAN L[facility] [id number] 10/17/2018 17:45:00 Document Registration [id number] 05/24/2019 11:25:00 10:58:00 DIS Inpatient ROZ WILKINS MD Via [facility] 4TH FALL [id number] 12/04/2018 15:34:00 23:59:59 CLS Outpatient FIORELLA ROQUE MD [facility] ER FS SOB [id number] 09/03/2018 10:56:00 12:55:00 DIS Inpatient ROZ WILKINS MD [facility] 4TH SEPTIC SHOCK [id number] 07/11/2018 10:27:00 12:30:00 DIS Emergency SOMMER STEFF CLARK [facility] ER FS SOB [id number] 05/27/2018 19:36:00 13:35:00 DIS Inpatient FIORELLA ROQUE MD [facility] 4TH RIGHT MIDDLE LOBE PNEUM ONIA; COPD W/ EXACERBATION [id number] 05/20/2018 10:40:00 23:59:59 CLS Outpatient BELLA KARIMI APRN [facility] WOUNDCARE [id number] 05/16/2018 10:38:00 23:59:59 CLS Outpatient BELLA KARIMI APRN [facility] RAD FS [id number] 05/06/2018 11:03:00 23:59:59 CLS Outpatient BELLA KARIMI TRIAL EXAMINER [facility] WOUNDCARE [id number] 04/29/2018 12:29:00 23:59:59 CLS Outpatient BELLA KARIMI TRIAL EXAMINER [facility] RAD PRESSURE ULCER OF [place] [id number] 04/29/2018 10:44:00 23:59:59 CLS Outpatient BELLA KARIMI TRIAL EXAMINER [facility] WOUNDCARE [id number] 04/01/2018 08:09:00 23:59:59 CLS Outpatient BELLA KARIMI TRIAL EXAMINER [facility] WOUNDCARE [id number] 09/07/2019 01:17:[address] Inpatient ORTIZ PHELAN, LEW Solorio Via [address] [id number] 08/29/2016 00:00:00 Document Registration [id number] 08/29/2016 00:00:00 Document Registration [id number] 01/27/2012 22:27:00 02/22/20 12 15:54:00 DIS Inpatient Curtis Melton MD [id number] 11/16/2014 11:00:12 ACT Document Registration [id number] 05/19/2015 10:50:13 05/19/2015 23:59: 59 CLS Outpatient Adriano, Marco S [id number] 07/06/2015 15:08:00 07/06/2015 16: 08:00 DIS LO BACANI, KRISTIN [facility] OT [id number] 07/05/2015 11:12:00 07/05/2015 12: 12:00 DIS LO BACANI, KRISTIN C [facility] OT [id number] 04/11/2015 10:30:00 04/11/2015 11: 30:00 DIS LO BACANI, KRISTIN C [facility] OT [id number] 11/03/2014 10:41:00 11/03/2014 11: 41:00 DIS LO BACANI, KRISTIN C [facility] OT [id number] 08/19/2014 12:40:00 08/19/2014 13: 40:00 DIS LO BACANI, KRISTIN [facility] OT
[2019-09-07 02:25] VITALS: BP 90/53
--- NOTE | 2019-09-07 02:25 | NUR ---
TRISTAN MESSINA admitted to room 425-1, with an admitting diagnosis of WEAKNESS, on 09/07/19 from [facility] via [facility], accompanied by EMS STAFF. TRISTAN MESSINA introduced to surroundings, call light, bed controls, phone, TV, temperature control, lights, meal times, smoking policy, visitor policy, side rail policy, bathrooms and showers. Patient Rights given to patient in the handbook. TRISTAN MESSINA verbalizes understanding that [facility] is not responsible for the loss or damage to any personal effects or valuables that are kept in the patients possession during their hospitalization.
[2019-09-07] MEDS: NS IV 1000 ML 1,000 ML IV SCH ×2 (03:27→18:18)
[2019-09-07] MEDS ORDERED: NS IV 1000 ML 1,000 ML IV ONE (03:45)
[2019-09-07 05:29] VITALS: BP 93/52
[2019-09-07 05:34] LABS: BASOPHILS % (AUTO) 0 % (0-10); EOSINOPHILS % (AUTO) 0 % (0-10); HEMATOCRIT 35 % (40-54); HEMOGLOBIN 11.3 G/DL (13.3-17.7); LYMPHOCYTES # (AUTO) 0.3 X 10^3 (1.0-4.0); LYMPHOCYTES % (AUTO) 2 % (12-44); MEAN CORPUSCULAR HEMOGLOBIN 28 PG (25-34); MEAN CORPUSCULAR HGB CONC 33 G/DL (32-36); MEAN CORPUSCULAR VOLUME 87 FL (80-99); MEAN PLATELET VOLUME 11.6 FL (7.4-10.4); MONOCYTES # (AUTO) 0.5 X 10^3 (0.0-1.0); MONOCYTES % (AUTO) 4 % (0-12); NEUTROPHILS % (AUTO) 94 % (42-75); PLATELET COUNT 156 10^3/uL (130-400); RED CELL DISTRIBUTION WIDTH 17.2 % (10.0-14.5); WHITE BLOOD COUNT 13.8 10^3/uL (4.3-11.0)
[2019-09-07 05:48] LABS: CHLORIDE 110 MMOL/L (98-107); POTASSIUM 5.2 MMOL/L (3.6-5.0); SODIUM 137 MMOL/L (135-145)
[2019-09-07 05:49] LABS: CALCIUM 7.9 MG/DL (8.5-10.1)
[2019-09-07 05:50] LABS: GLUCOSE 113 MG/DL (70-105); TOTAL PROTEIN 5.4 GM/DL (6.4-8.2)
--- NOTE | 2019-09-07 05:50 | Diagnostic Imaging Report ---
EXAMINATION: Chest 1 view HISTORY: Hypertension. COMPARISON: Chest radiograph on 05/24/2019. FINDINGS: The lungs are hyperexpanded. Chronic prominent interstitial markings are seen in the perihilar regions bilaterally. Hazy opacities are seen in the mid and upper right lung. Biapical scarring is again seen. No large pleural effusion or pneumothorax. Stable cardiac silhouette. No acute osseous abnormalities. IMPRESSION: 1. Hazy opacities in the mid and upper right lung. This may represent developing infection versus overlapping soft tissues due to patient rotation. Consider follow-up if indicated. 2. Hyperexpanded lungs with chronic interstitial markings and biapical scarring. These findings can be seen with COPD. Dictated by: Dictated on workstation # [id number]
[2019-09-07 05:51] LABS: CARBON DIOXIDE 18 MMOL/L (21-32)
[2019-09-07 05:52] LABS: BILIRUBIN,TOTAL 4.3 MG/DL (0.1-1.0)
[2019-09-07 05:54] LABS: ALKALINE PHOSPHATASE 292 U/L (40-136); CREATININE SERUM 1.13 MG/DL (0.60-1.30); GFR ESTIMATED > 60
[2019-09-07 05:55] LABS: BUN/CREATININE RATIO 25
[2019-09-07 05:57] LABS: ALANINE AMINOTRANSFERASE 53 U/L (0-55)
--- NOTE | 2019-09-07 06:28 | NUR ---
DR. ALCANTAR NOTIFIED OF PT'S BLADDER SCAN SHOWING MORE THAN 999 MLS IN URINE. NEW ORDERS RECEIVED TO PLACE MOROCHO CATHETER. CATHETER PLACED USING STERILE TECHNIQUE, RETURN OF 1600 MLS OF DARK NICKY URINE. PT TOLERATED PROCEDURE WELL. WILL CONTINUE TO MONITOR. 629 DR. ALCANTAR ALSO NOTIFIED OF PT'S DVT SCORE OF 7. NEW ORDERS RECEIVED FOR LOVENOX 40MG SQ DAILY.
[2019-09-07] MEDS ORDERED: ENOXAPARIN 30 MG/0.3 ML (LOVENOX) SYR SC SCH (07:00)
[2019-09-07 08:43] VITALS: BP 140/67
[2019-09-07] MEDS ORDERED: AMIN887L16 PO (09:20)
[2019-09-07] MEDS ORDERED: PREG225C7 PO (09:20)
--- NOTE | 2019-09-07 09:52 | NUR ---
MED REC WAS ENTERED USING THE MAR FROM [employer]
--- NOTE | 2019-09-07 09:56 | History & Physical-Hospitalist ---
History of Present Illness HPI/Chief Complaint CC: Pneumonia HPI: This is a 69yoWM clinic pt of Dr. Hernandez who presented with cough, SOB, hypoxia and temperature of 104. Pt was placed in the hospital. Started on Vanc and Zosyn, changed to Rocephin and since that time he is a Covid-19 rule out so we are waiting for that result. I did use PPE to see him. WC 13.8. Appetite has decreased and he lives at [facility] in [facility]. We will DC Rocephin and start him back on Zosyn because the lungs are coarse and he is still running a fever and WC is elevated. Source: patient, RN/MD Exam Limitations: clinical condition Date Seen 09/07/19 Time Seen by a Provider: 09:00 Attending Physician Devon Hayes MD PCP Feliz Hernandez MD Referring Physician Date of Admission Sep 07, 2019 at 01:17 Home Medications & Allergies Home Medications Reviewed patient Home Medication Reconciliation performed by pharmacy medication reconciliations hazardous waste technician and/or nursing. Patients Allergies have been reviewed. Allergies Allergies Coded Allergies No Known Drug Allergies (Unverified05/24/19) Past Qnxtutx-Mabevr-Gybrka Hx Past Med/Social Hx: Reviewed Nursing Past Med/Soc Hx, Reviewed and Corrections made Patient Social History Marrital Status: single Employed/Student: retired Alcohol Use: Past History Number of Drinks Today: AA Alcohol Beverage of Choice: Beer Recreational Drug Use: No Smoking Status: Current Everyday Smoker Type Used: Cigarettes 2nd Hand Smoke Exposure: No Recent Foreign Travel: No Contact w/other who traveled: No Recent Hopitalizations: No Recent Infectious Disease Expo: No Immunizations Up To Date Date of Pneumonia Vaccine: Dec 09, 2017 Date of Influenza Vaccine: Dec 09, 2017 Seasonal Allergies Seasonal Allergies: No Past Medical History Respiratory: COPD Cardiac: Irregular Heartbeat Neurological: Multiple Sclerosis Musculoskeletal: Arthritis Psychosocial: Depression History of Blood Disorders: No Family History FH: CHF (congestive heart failure) 19 FATHER, , Age:70, Onset:60 years & older Review of Systems Constitutional: see HPI, chills, dizziness, fever, malaise, weakness Respiratory: dyspnea on exertion Musculoskeletal: back pain Skin: dryness Physical Exam Physical Exam Vital Signs Vital Signs - First Documented 09/06/19 09/07/19 23:13 01:47 Temp 40.0 Pulse 115 Resp 21 B/P (MAP) 147/113 (124) Pulse Ox 99 O2 Delivery Nasal Cannula O2 Flow Rate 6.00 Capillary Refill : Less Than 3 Seconds Height, Weight, BMI Height: 5'8.00" Weight: 156lbs. 2.0oz. 70.900232wt; 18.34 BMI Method:Stated General Appearance: Anxious, Chronically ill, Thin Eyes: Right Eye Normal Inspection, Right Eye PERRL HEENT: PERRL/EOMI, Normal ENT Inspection, Pharynx Normal, Moist Mucous Membranes Neck: Full Range of Motion, Normal Inspection, Non Tender Respiratory: Chest Non Tender, Lungs Clear, No Accessory Muscle Use, No Resp iratory Distress, Decreased Breath Sounds Cardiovascular: Regular Rate, Rhythm, No Edema, No Gallop, No JVD, No Murmur, Normal Peripheral Pulses Gastrointestinal: Normal Bowel Sounds, No Organomegaly, No Pulsatile Mass, Non Tender, Soft Back: Normal Inspection, No CVA Tenderness, No Vertebral Tenderness Extremity: Normal Capillary Refill, Normal Inspection, Normal Range of Motion, Non Tender, No Calf Tenderness, No Pedal Edema Neurologic/Psychiatric: Alert, Oriented x3, No Motor/Sensory Deficits, Normal Mood/Affect Skin: Normal Color, Warm/Dry Lymphatic: No Adenopathy Results Results/Procedures Labs Laboratory Tests 09/06/19 22:45 09/07/19 05:25 Patient resulted labs reviewed. Assessment/Plan Admission Diagnosis Assessment: Fever Hypoxia Dehydration MS Chronic debility Plan: Abx empiric IVF Monitor closely Lovenox DC when OAC started home dose PT OT Admission Status: Inpatient Order (span 2 midnights) Reason for Inpatient Admission: Fever and elevated wbc with sepsis Diagnosis/Problems Diagnosis/Problems (1) Sepsis Status: Acute (2) Urinary tract infection Status: Acute (3) PUI (4) COPD (chronic obstructive pulmonary disease) Status: Acute (5) Wheelchair dependence Status: Chronic (6) Chronic pain Status: Chronic (7) Multiple sclerosis Status: Chronic (8) Atrial fibrillation Status: Chronic (9) Smoker Status: Chronic Clinical Quality Measures DVT/VTE Risk/Contraindication: Risk Factor Score Per Nursin RFS Level Per Nursing on Admit: 4+=Very High CORINE LU DO Sep 07, 2019 09:56
[2019-09-07] MEDS ORDERED: TEA TREE OIL EACH EAR PRN (10:00)
[2019-09-07] MEDS ORDERED: RT-ALBUTEROL/IPRATROPIUM 3 ML (DUONEB) VIAL IH PRN (10:00)
[2019-09-07] MEDS ORDERED: ACETAMINOPHEN 500 MG TAB (TYLENOL) PO PRN (10:00)
[2019-09-07] MEDS ORDERED: IBUPROFEN TABLET 200 MG TAB PO PRN (10:00)
[2019-09-07] MEDS ORDERED: ONDANSETRON 4 MG (ZOFRAN) ORAL DISSOLVE TAB PO PRN (10:45)
--- NOTE | 2019-09-07 11:38 | Physical Therapy Evaluation ---
PT Evaluation-General Medical Diagnosis Admission Date Sep 07, 2019 at 01:17 Medical Diagnosis: weakness Onset Date: Sep 06, 2019 Therapy Diagnosis Therapy Diagnosis: debility/weakness Height/Weight Height (Feet): 5 Height (Inches): 8.00 Weight (Pounds): 156 Weight (Ounces): 2.0 Precautions Precautions/Isolations: Contact Isolation, Droplet Isolation Weight Bear Status Right Lower Extremity: Right Non Weight Bearing Left Lower Extremity: Left Non Weight Bearing Referral Physician: Carmelita Reason for Referral: Evaluation/Treatment Medical History Pertinent Medical History: Alcoholism, COPD, Heart Failure, Renal Insufficiency Additional Medical History MS Current History ER from [place] secondary to fever and decreased BP. Reviewed History: Yes Social History Home: [facility] Prior Prior Level of Function SCALE: Activities may be completed with or without assistive devices. 8-Pcjitddojt-ttmdfrf completes the activity by him/herself with no assistance from a helper. 5-Set-up or Clean-up Assistance-helper sets up or cleans up; patient completes activity. Steens assists only prior to or following the activity. 4-Supervision or Touching Assistance-helper provides verbal cues and/or touching/steadying and/or contact guard assistance as patient completes activity. Assistance may be provided throughout the activity or intermittently. 3-Partial/Moderate Assistance-helper does LESS THAN HALF the effort. Steens lifts, holds or supports trunk or limbs, but provides less than half the effort. 2-Substantial/Maximal Assistance-helper does MORE THAN HALF the effort. Steens lifts or holds trunk or limbs and provides more than half the effort. 7-Lptuyaerg-mxoqhs does ALL the effort. Patient does none of the effort to complete the activity. Or, the assistance of 2 or more helpers is required for the patient to complete the activity. If activity was not attempted, code reason: 7-Patient Refused. 9-Not Applicable-not attempted and the patient did not perform the activity before the current illness, exacerbation or injury. 10-Not Attempted due to Environmental Limitations-(lack of equipment, weather restraints, etc.). 88-Not Attempted due to Medical Conditions or Safety Concerns. Bed Mobility: 2 Transfers (B,C,W/C): 2 Gait: 9 Stairs: 9 Wheelchair Mobility: 3 Indoor Mobility (Ambulation): Not Applicalbe Stairs: Not Applicalbe Prior Devices Use: Manual wheelchair nonambulatory patient PLOF PT Evaluation-Current Subjective Patient reluctantly agrees to PT. Pain Numeric Pain Scale: 0-No Pain Location: No Pain Reported Objective Patient Orientation: Confused Attachments: Oxygen, Frankel Catheter, IV ROM/Strength ROM Lower Extremities bilateral LE WFL Strength Lower Extremities bilateral DF/PF 1-/5/bilateral LE 3-/5 grossly Integumentary/Posture Integumentary refer to nursing notes Bladder Incontinence: Frankel Cath Posture kyphotic Neuromuscular (Tone, Coordination, Reflexes) severely diminished Sensory Vision: Functional Hearing: Functional Sensation Right Lower Extremit: Impaired Sensation Left Lower Extremity: Impaired Transfers Roll Left to Right (QC): 2 Lying to Sitting/Side of Bed(Q: 2 Sit to Stand (QC): 2 Chair/Nnd-sf-Beamy Xfer(QC): 2 squat pivot transfer Gait Does the Patient Walk?: No and Walking Goal NOT indicated Wheelchair Training Does the Pt Use a Wheelchair?: Yes Type of Wheelchair: Manual Balance Sitting Static: Fair Sitting Dynamic: Fair Standing Static: Poor Standing Dynamic: Poor Assessment/Needs 69 y.o. male, will be seen short term by skilled PT to address functional transfers and bed mobility. Patient in non ambulatory PLOF and utilizes FWW for mobility at [place]. Rehab Potential: Guarded PT Hospice/Home Health Aide Goals Hospice/Home Health Aide Goals PT Hospice/Home Health Aide Goals Time Frame: Sep 18, 2019 Roll Left & Right (QC): 3 Sit to Lying (QC): 3 Lying-Sitting on Side/Bed(QC): 3 Sit to Stand (QC): 3 Chair/Ruu-zy-Rzftl Xfer(QC): 3 Does the Patient Walk: No and Walking Goal NOT indicated PT Plan Problem List Problem List: Activity Tolerance, Functional Strength, Safety, Balance, Transfer, Bed Mobility Treatment/Plan Treatment Plan: Continue Plan of Care Treatment Plan: Bed Mobility, Education, Functional Activity Brett, Functional Strength, Safety, Therapeutic Exercise, Transfers Treatment Duration: Sep 18, 2019 Frequency: 3 times per week Estimated Hrs Per Day: .25 hour per day Patient and/or Family Agrees t: Yes Time/GCodes Time In: 1032 Time Out: 1046 Total Billed Treatment Time: 14 Total Billed Treatment 1 visit EVMod 14 min ABELARDO STOVALL PT Sep 07, 2019 11:38
[2019-09-07] MEDS: AMIODARONE 200 MG (CORDARONE) TAB PO SCH ×2 (11:45→22:05)
[2019-09-07] MEDS: FLUTICASONE NASAL SPRAY (FLONASE) 16 GM BTL NS SCH ×2 (11:45→11:49)
[2019-09-07] MEDS: PIPERACILLIN/TAZOBACTAM (BULK) 4.5 GM in NS (IVPB) 100 ML IV SCH ×2 (11:46→18:27)
[2019-09-07] MEDS: MEGESTROL ACETATE 400 MG/10 ML (MEGACE) UDC PO SCH (11:49)
[2019-09-07 11:56] VITALS: BP 177/73
[2019-09-07] MEDS: ACETAMINOPHEN 325 MG TABLET PO PRN ×2 (11:56→18:32)
--- NOTE | 2019-09-07 13:34 | NUR ---
CM/SS: Telephone Call to Christie, Acting Manager Drug Safety, at [facility] in [place] [phone], to let them know that this worker would be working with pt while he were here and work on his plan for discharge once it was determined when he would be leaving. They expressed appreciation for the call. This worker will follow up.
[2019-09-07] MEDS: guaiFENesin SYRUP 100 MG/5 ML 10 ML (ROBITUSSIN SF) PO SCH ×3 (14:37→22:06)
[2019-09-07] MEDS: PREGABALIN 75 MG (LYRICA) CAP PO SCH ×2 (14:38→22:06)
[2019-09-07] MEDS: morphine ER 30 MG (MS CONTIN) TAB PO SCH ×2 (14:38→22:04)
[2019-09-07 16:39] VITALS: BP 100/59
[2019-09-07 20:00] VITALS: BP 150/83
[2019-09-07] MEDS: TAMSULOSIN 0.4 MG (FLOMAX) CAP PO SCH (22:05)
[2019-09-07] MEDS: FAMOTIDINE 20 MG (PEPCID) TABLET PO SCH (22:05)
[2019-09-07] MEDS: APIXABAN 5 MG (ELIQUIS) TABLET PO SCH (22:05)
[2019-09-07] MEDS: QUEtiapine 100 MG (SEROquel) TAB IMMEDIATE RELEASE PO SCH (22:05)
[2019-09-07] MEDS: ALPRAZolam 0.5 MG (XANAX) TAB PO SCH (22:05)
--- NOTE | 2019-09-07 23:50 | NUR ---
PT REQUESTS ZOFRAN D/T NAUSEA AT THIS TIME.
[2019-09-08] VITALS (17 sets, daily range): BP systolic 71–126; BP diastolic 45–90
[2019-09-08] MEDS ORDERED: cefTRIAXone 1,000 MG/SWFI 10 ML IV PUSH IV SCH ×2
[2019-09-08] MEDS: PIPERACILLIN/TAZOBACTAM (BULK) 4.5 GM in NS (IVPB) 100 ML IV SCH ×2 (04:24→15:03)
[2019-09-08] MEDS: NS IV 1000 ML 1,000 ML IV SCH (05:37)
[2019-09-08] MEDS: morphine ER 30 MG (MS CONTIN) TAB PO SCH ×3 (05:37→21:30)
[2019-09-08 06:06] LABS: BASOPHILS % (AUTO) 0 % (0-10); EOSINOPHILS % (AUTO) 0 % (0-10); HEMATOCRIT 36 % (40-54); HEMOGLOBIN 11.8 G/DL (13.3-17.7); LYMPHOCYTES # (AUTO) 0.3 X 10^3 (1.0-4.0); LYMPHOCYTES % (AUTO) 2 % (12-44); MEAN CORPUSCULAR HEMOGLOBIN 29 PG (25-34); MEAN CORPUSCULAR HGB CONC 33 G/DL (32-36); MEAN CORPUSCULAR VOLUME 86 FL (80-99); MEAN PLATELET VOLUME 12.2 FL (7.4-10.4); MONOCYTES # (AUTO) 0.6 X 10^3 (0.0-1.0); MONOCYTES % (AUTO) 5 % (0-12); NEUTROPHILS # (AUTO) 12.1 X 10^3 (1.8-7.8); NEUTROPHILS % (AUTO) 93 % (42-75); PLATELET COUNT 108 10^3/uL (130-400); RED CELL DISTRIBUTION WIDTH 17.3 % (10.0-14.5)
[2019-09-08 06:07] LABS: ALBUMIN 2.7 GM/DL (3.2-4.5)
[2019-09-08 06:08] LABS: CHLORIDE 113 MMOL/L (98-107); POTASSIUM 4.2 MMOL/L (3.6-5.0); SODIUM 143 MMOL/L (135-145)
[2019-09-08 06:10] LABS: GLUCOSE 100 MG/DL (70-105); TOTAL PROTEIN 5.1 GM/DL (6.4-8.2)
[2019-09-08 06:11] LABS: CARBON DIOXIDE 19 MMOL/L (21-32)
[2019-09-08 06:12] LABS: BILIRUBIN,TOTAL 4.5 MG/DL (0.1-1.0)
[2019-09-08 06:13] LABS: ALKALINE PHOSPHATASE 194 U/L (40-136)
[2019-09-08 06:14] LABS: CREATININE SERUM 1.06 MG/DL (0.60-1.30); GFR ESTIMATED > 60
[2019-09-08 06:15] LABS: BUN/CREATININE RATIO 22
[2019-09-08 06:17] LABS: ALANINE AMINOTRANSFERASE 48 U/L (0-55)
--- NOTE | 2019-09-08 07:10 | NUR ---
PT IS IN NO RESPIRATORY DISTRESS. PT DENIES NEEDING BREATHING TX. RN IS TO CALL RT TO GIVE PT BREATHING TX IF PT NEEDS.
[2019-09-08] MEDS: MEGESTROL ACETATE 400 MG/10 ML (MEGACE) UDC PO SCH (08:29)
[2019-09-08] MEDS: guaiFENesin SYRUP 100 MG/5 ML 10 ML (ROBITUSSIN SF) PO SCH ×5 (08:29→20:31)
[2019-09-08] MEDS: AMIODARONE 200 MG (CORDARONE) TAB PO SCH ×2 (08:30→21:30)
[2019-09-08] MEDS: MULTIVIT W/MINERALS TAB (THERAGRAN M) PO SCH (08:30)
[2019-09-08] MEDS: FLUTICASONE NASAL SPRAY (FLONASE) 16 GM BTL NS SCH (08:30)
[2019-09-08] MEDS: APIXABAN 5 MG (ELIQUIS) TABLET PO SCH ×2 (08:30→20:30)
[2019-09-08] MEDS: MAGNESIUM OXIDE (MAG-OX)400 MG TAB PO SCH (08:30)
[2019-09-08] MEDS: FAMOTIDINE 20 MG (PEPCID) TABLET PO SCH ×2 (08:30→20:30)
[2019-09-08] MEDS: PREGABALIN 75 MG (LYRICA) CAP PO SCH ×3 (08:30→20:30)
--- NOTE | 2019-09-08 08:30 | NUR ---
amiodorone 200 mg p.o. held as this patient's b/p was 77/48. this rn will contact doctor of these findings. This RN will cont to monitor this patient throughout the remainder of this shift.
[2019-09-08] MEDS ORDERED: NON-FORMULARY MEDICATION 1 EA EA (Amino Acids/Protein Hydrolys (Pro-Stat Sugar Free Liquid PO SCH (09:00)
[2019-09-08] MEDS ORDERED: ZINC GLUCONATE 30 MG PO SCH (09:00)
[2019-09-08] MEDS ORDERED: NS IV 1000 ML 1,000 ML IV SCH (09:15)
[2019-09-08] MEDS ORDERED: NS IV ONE (09:15)
--- NOTE | 2019-09-08 09:54 | Diagnostic Imaging Report ---
Indication: Cough and fever Portable chest 9:40 AM There is some scarring in the right upper lobe with emphysematous changes in the lungs. There are no infiltrates, effusions or pneumothoraces. Heart size and pulmonary vascularity are normal. IMPRESSION: COPD. No acute abnormalities seen. Dictated by: Dictated on workstation # [id number]
--- NOTE | 2019-09-08 10:12 | NUR ---
THIS RN GAVE LUBA RAMEY FROM ICU REPORT BEDSIDE AFTER TRANSFER HIM TO [facility] PER DR. VU ORDERS. THIS RN DOES REPORT TO TANVIR THAT A FLUID BOLUS NEEDS TO BE COMPLETED UPON ARRIVAL TO THE ICU UNIT. THIS RN TRANSFERRED THIS PATIENT VIA BED WITH OXYGEN AT 6L PER N/C AT 0940. NEW ORDERS PLACED FOR NEW LABS PER DR. LU TO BE COMPLETED AFTER ARRIVING TO ICU.
--- NOTE | 2019-09-08 10:42 | Progress Note - Hospitalist ---
Subjective HPI/CC On Admission Date Seen by Provider: Sep 08, 2019 Time Seen by Provider: 09:45 CC: Pneumonia HPI: This is a 69yoWM clinic pt of Dr. Hernandez who presented with cough, SOB, hypoxia and temperature of 104. Pt was placed in the hospital. Started on Vanc and Zosyn, changed to Rocephin and since that time he is a Covid-19 rule out so we are waiting for that result. I did use PPE to see him. WC 13.8. Appetite has decreased and he lives at [facility]. We will DC Rocephin and start him back on Zosyn because the lungs are coarse and he is still running a fever and WC is elevated. Subjective/Events-last exam Pt had been doing pretty well until BP was 77 systolics I sent him up to the this morning promptly Procalcitonin is 33 Dr. Whitley consulted and he reviewed everything and it appears he does have resistant type of Klebsiellaand Enterobacter so will switch Zosyn to Meropenem and add Vanc Pt has had a lot of Steroids recently so I did start him on Solu-Cortef to treat for any adrenal insufficiency Pt appears to be very debilitated very weak and overall prognosis is very guarded Review of Systems General: Fatigue, Malaise Pulmonary: Cough Musculoskeletal: back pain Neurological: Weakness, Confusion Focused Exam Lactate Level 09/06/19 22:45: Lactic Acid Level 3.68*H 09/07/19 05:15: Lactic Acid Level 0.68 09/08/19 12:25: Lactic Acid Level 0.75 Objective Exam Vital Signs Vital Signs Date Time Temp Pulse Resp B/P (MAP) Pulse Ox O2 Delivery O2 Flow Rate FiO2 09/08/19 16:00 59 16 107/57 (74) 98 NIV Bilevel 09/08/19 15:52 30.00 09/08/19 08:25 36.2 Capillary Refill : NONE General Appearance: Anxious, Chronically ill, Cachetic, Mild Distress Respiratory: Decreased Breath Sounds, Wheezing Cardiovascular: Regular Rate, Rhythm Neurologic/Psychiatric: Alert, Other (drowsy) Results/Procedures Lab Laboratory Tests 09/08/19 05:50 09/08/19 12:25 Patient resulted labs reviewed. Assessment/Plan Assessment and Plan Assess & Plan/Chief Complaint Assessment: Septic shock due to gram negative bacteremia Presumed adrenal insufficiency Impending decompensation Fever Hypoxia Dehydration MS Chronic debility Plan: IV Zosyn IV Steroids IVF Monitor closely Lovenox DC when OAC started home dose ICU transfer Diagnosis/Problems Diagnosis/Problems (1) Sepsis Status: Acute (2) Urinary tract infection Status: Acute (3) PUI (4) COPD (chronic obstructive pulmonary disease) Status: Acute (5) Wheelchair dependence Status: Chronic (6) Chronic pain Status: Chronic (7) Multiple sclerosis Status: Chronic (8) Atrial fibrillation Status: Chronic (9) Smoker Status: Chronic Clinical Quality Measures DVT/VTE Risk/Contraindication: Risk Factor Score Per Nursin RFS Level Per Nursing on Admit: 4+=Very High CORINE LU DO Sep 08, 2019 10:41
--- NOTE | 2019-09-08 11:53 | Pulmonary Consultation ---
History of Present Illness History of Present Illness Date Seen by Provider: Sep 08, 2019 Time Seen by Provider: 11:48 Date of Admission History of Present Illness 69o pt who was admitted from [facility] on 09/06 to 4th floor secondary to worsening SOB, hypoxia, and fever of 104. He was start on Vanco and Zosyn then switched to Rocephin. COVID 19 testing has been negative. Procalcitonin was 2.71 and today is 33.93. Dr. Mae took over care today and found pt to be declining and hypotensive. She transferred pt to ICU. Allergies and Home Medications Allergies Coded Allergies: No Known Drug Allergies (Unverified , 05/24/19) Home Medications Acetaminophen 500 Mg Tablet, 500 MG PO Q6H PRN for PAIN-MILD OR TEMPATURE, (Reported) Alprazolam 0.5 Mg Tablet, 0.5 MG PO HS, (Reported) Amino Acids/Protein Hydrolys 887 Ml Liquid, 30 ML PO DAILY, (Reported) Amiodarone HCl 200 Mg Tablet, 200 MG PO Q12H, (Reported) Apixaban 5 Mg Tablet, 5 MG PO BID, (Reported) Citalopram Hydrobromide 20 Mg Tablet, 20 MG PO DAILY, (Reported) Citalopram Hydrobromide 10 Mg Tablet, 10 MG PO DAILY, (Reported) Famotidine 20 Mg Tablet, 20 MG PO BID, (Reported) Fluticasone Propionate 16 Gm [place]ulkner.susp, 2 SPRAYS NS DAILY, (Reported) Guaifenesin 400 Mg Tablet, 400 MG PO QID, (Reported) Ibuprofen 400 Mg Tablet, 400 MG PO TID PRN for PAIN-MILD, (Reported) Ipratropium/Albuterol Sulfate 3 Ml Ampul.neb, 3 ML NEB Q6H PRN for SHORTNESS OF BREATH, (Reported) Magnesium Oxide 400 Mg Tablet, 400 MG PO DAILY, (Reported) Megestrol Acetate 400 Mg/10 Ml Oral.susp, 10 ML PO DAILY, (Reported) Morphine Sulfate 30 Mg Tablet.er, 30 MG PO 0600,1400,2200, (Reported) Multivitamin 1 Each Tablet, 1 TAB PO DAILY, (Reported) Nystatin/Triamcinolone 15 Gm Oint, TP BID PRN for STOMA, (Reported) Ondansetron HCl 4 Mg Tab, 4 MG PO Q4H PRN for NAUSEA/VOMITING-1ST LINE, (Reported) Pregabalin 225 Mg Capsule, 225 MG PO TID, (Reported) Quetiapine Fumarate 50 Mg Tablet, 50 MG PO HS, (Reported) Tamsulosin HCl 0.4 Mg Cap, 0.4 MG PO HS, (Reported) Tea Tree Oil 1 Ml Oil, 4 DROP EACH EAR BID PRN for EAR, (Reported) Tramadol HCl 50 Mg Tablet, 100 MG PO Q6H PRN for PAIN-MODERATE, (Reported) Zinc Gluconate 30 Mg Tablet, 30 MG PO DAILY, (Reported) [Alcohol/Vinegar] , 4 DROPS EACH EAR PRN PRN for EAR PAIN, (Reported) ALCOHOL/WHITE VINEGAR EQUAL PARTS Past Wgwqprs-Medxps-Sthlpi Hx Past Med/Social Hx: Reviewed Nursing Past Med/Soc Hx, Reviewed and Corrections made Patient Social History Alcohol Use: Past History Number of Drinks Today: AA Alcohol Beverage of Choice: Beer Recreational Drug Use: No Smoking Status: Current Everyday Smoker Type Used: Cigarettes 2nd Hand Smoke Exposure: No Recent Foreign Travel: No Contact w/Someone Who Travel: No Recent Infectious Disease Expo: No Recent Hopitalizations: No Physical Abuse: No Sexual Abuse: No Mistreated: No Fear: No Immunizations Up To Date Date of Pneumonia Vaccine: Dec 09, 2017 Date of Influenza Vaccine: Dec 09, 2017 Seasonal Allergies Seasonal Allergies: No Past Medical History Surgeries: Yes (Colostomy) Respiratory: Yes COPD, Emphysema Cardiac: Yes (CHF) Irregular Heartbeat Neurological: Yes Multiple Sclerosis Genitourinary: Yes (renal insufficiency) Gastrointestinal: Yes (Colostomy; ventral hernia) Musculoskeletal: Yes Arthritis Endocrine: No HEENT: No Cancer: No Psychosocial: Yes Depression Integumentary: No Blood Disorders: No Family Medical History FH: CHF (congestive heart failure) 19 FATHER, , Age:70, Onset:60 years & older Review of Systems Time Seen by Provider: 12:04 Sepsis Event Evaluation Height, Weight, BMI Height: 5'8.00" Weight: 156lbs. 2.0oz. 70.423769vw; 18.34 BMI Method:Stated Exam Exam Vital Signs Date Time Temp Pulse Resp B/P (MAP) Pulse Ox O2 Delivery O2 Flow Rate FiO2 09/08/19 10:00 67 8 81/54 (63) 99 Nasal Cannula 6.00 09/08/19 08:25 36.2 74 16 77/48 (58) 100 Nasal Cannula 6.00 09/08/19 08:00 100 Nasal Cannula 6.00 09/08/19 07:09 Nasal Cannula 5.00 09/08/19 04:00 37.1 86 20 126/72 (90) 96 Nasal Cannula 5.00 09/08/19 00:00 36.9 98 18 102/60 (74) 98 Nasal Cannula 5.00 09/07/19 20:00 36.8 108 18 150/83 (105) 92 Nasal Cannula 5.00 09/07/19 20:00 Nasal Cannula 5.00 09/07/19 16:39 36.1 99 20 100/59 (73) 99 Nasal Cannula 5.00 09/07/19 11:56 35.9 118 20 177/73 (107) 93 Nasal Cannula 6.00 I & O 09/08/19 07:00 Intake Total 950 ml Output Total 1650 ml Balance -700 ml Height & Weight Height: 5'8.00" Weight: 156lbs. 2.0oz. 70.430821jc; 18.34 BMI Method:Stated General Appearance: Anxious, Chronically ill, Cachetic, Mild Distress HEENT: PERRL/EOMI, Normal ENT Inspection, Pharynx Normal, Moist Mucous Membranes Neck: Full Range of Motion, Normal Inspection, Non Tender Respiratory: Decreased Breath Sounds, Wheezing Cardiovascular: Regular Rate, Rhythm Capillary Refill: NONE Extremity: Normal Capillary Refill, Normal Inspection, Normal Range of Motion, Non Tender, No Calf Tenderness, No Pedal Edema Neurologic/Psychiatric: Alert, Other (drowsy) Skin: Normal Color, Warm/Dry Lymphatic: No Adenopathy Results Lab Laboratory Tests 09/06/19 22:45 09/07/19 05:25 09/08/19 05:50 Assessment/Plan Assessment/Plan Severe Sepsis with shock -IVF 30cc/kg -Rocephin changed to Zosyn -After reviewing previous cultures I am going to start pt on Vanco and Merrem. -repeat mccullough cultures and LA ordered Bacteremia and hypotension -Check echo UTI with sepsis -Continue ANNELISE Martinez DO Sep 08, 2019 11:53
[2019-09-08] MEDS ORDERED: VANCOMYCIN INJECTION 1,000 MG in NS (IVPB) 250 ML IV SCH (12:00)
[2019-09-08] MEDS ORDERED: LACTATED RINGERS 1,000 ML IV SCH (12:00)
[2019-09-08] MEDS ORDERED: PHARMACY TO DOSE IV SCH (12:00)
--- NOTE | 2019-09-08 12:48 | NUR ---
PHARMACY TO DOSE VANCOMYCIN: PATIENT WEIGHT 57.2 KG, SCr 1.06, CrCl 53.2, BMI 19.2; VANCOMYCIN LOADING DOSE 20MG/KG X 57.2KG = 1144 ~ 1250MG 09/07 @ 1300; MAINT DOSE 15MG/KG X 57.2 KG = 858 ~ 1G Q24H STARTING 09/08 @ 1300; VANCOMYCIN TROUGH DUE 09/10 @ 1200. IF TROUGH IS > 20, HOLD DOSE AND NOTIFY PHARMACY FOR ADJUSTMENTS.
[2019-09-08 12:49] LABS: BASOPHILS % (AUTO) 0 % (0-10); EOSINOPHILS % (AUTO) 0 % (0-10); HEMATOCRIT 32 % (40-54); HEMOGLOBIN 10.7 G/DL (13.3-17.7); LYMPHOCYTES # (AUTO) 0.5 X 10^3 (1.0-4.0); LYMPHOCYTES % (AUTO) 4 % (12-44); MEAN CORPUSCULAR HEMOGLOBIN 29 PG (25-34); MEAN CORPUSCULAR HGB CONC 33 G/DL (32-36); MEAN CORPUSCULAR VOLUME 87 FL (80-99); MONOCYTES # (AUTO) 0.5 X 10^3 (0.0-1.0); MONOCYTES % (AUTO) 4 % (0-12); NEUTROPHILS # (AUTO) 10.4 X 10^3 (1.8-7.8); NEUTROPHILS % (AUTO) 92 % (42-75); PLATELET COUNT 103 10^3/uL (130-400); RED CELL DISTRIBUTION WIDTH 17.5 % (10.0-14.5); WHITE BLOOD COUNT 11.4 10^3/uL (4.3-11.0)
[2019-09-08] MEDS ORDERED: VANCOMYCIN 1250 MG/NS 250 ML IVPB IV NR ×2 (13:00)
[2019-09-08 13:04] LABS: ALBUMIN 2.5 GM/DL (3.2-4.5); CHLORIDE 115 MMOL/L (98-107); POTASSIUM 4.2 MMOL/L (3.6-5.0); SODIUM 143 MMOL/L (135-145)
[2019-09-08 13:05] LABS: CALCIUM 7.9 MG/DL (8.5-10.1)
[2019-09-08 13:06] LABS: GLUCOSE 116 MG/DL (70-105); TOTAL PROTEIN 4.8 GM/DL (6.4-8.2)
[2019-09-08 13:07] LABS: CARBON DIOXIDE 21 MMOL/L (21-32)
[2019-09-08 13:08] LABS: BILIRUBIN,TOTAL 3.8 MG/DL (0.1-1.0)
[2019-09-08 13:10] LABS: ALKALINE PHOSPHATASE 164 U/L (40-136); CREATININE SERUM 1.05 MG/DL (0.60-1.30); GFR ESTIMATED > 60
[2019-09-08 13:11] LABS: BUN/CREATININE RATIO 25
[2019-09-08 13:13] LABS: ALANINE AMINOTRANSFERASE 43 U/L (0-55)
--- NOTE | 2019-09-08 13:45 | NUR ---
CM/SS: Telephone call to [facility] in [place] [phone] spoke to Em, Drop Hammer Mechanic. Pt was moved this morning to ICU - current bed number is 9. She clarified the visitor policy. Reminded that the policy is one visitor per day per patient. This worker will follow up.
[2019-09-08] MEDS: NOREPINEPHRINE 4 MG/250 ML 250 ML IV SCH ×2 (13:48→22:15)
[2019-09-08 13:49] LABS: BAND NEUTROPHILS 12 %; BASOPHILS % (MANUAL) 0 %; EOSINOPHILS % (MANUAL) 0 %; LYMPHOCYTES % (MANUAL) 6 %; MONOCYTES % (MANUAL) 1 %; NEUTROPHILS % (MANUAL) 81 %
[2019-09-08] MEDS: LACTATED RINGERS 1,000 ML IV SCH ×2 (13:49→21:04)
[2019-09-08 13:50] LABS: ANISOCYTOSIS SLIGHT; TOXIC GRANULATION/VACUOLAZATIO 2+
[2019-09-08] MEDS: MEROPENEM 500 MG in WATER (STERILE) FOR INJECTION 10 ML IV SCH ×3 (13:50→22:59)
[2019-09-08] MEDS: HYDROCORTISONE 100 MG/2 ML (Solu-CORTEF) VIAL IV SCH ×2 (13:50→22:46)
[2019-09-08 15:09] LABS: ABG BASE EXCESS -7.4 MMOL/L (-2.5-2.5); ABG OXYGEN SATURATION 99 % (94-100); ABG PCO2 51 MMHG (35-45); ABG PO2 146 MMHG (79-93)
[2019-09-08 15:12] LABS: INSPIRED O2 4L; PATIENT TEMP 36.6; VENTILATOR NO
--- NOTE | 2019-09-08 15:52 | Consultation - Surgery ---
History of Present Illness History of Present Illness Patient Consulted On(johanna/time) 09/08/19 11:17 Date Seen by Provider: Sep 08, 2019 Time Seen by Provider: 11:17 History of Present Illness Patient is a 69 year old male transferred up to ICU with septic shock , UTI and fever. Patient having blood pressure systolic in the 80's. He is not feeling well. Does not answer questions, not feeling well. No family at bedside. Allergies and Home Medications Allergies Coded Allergies: No Known Drug Allergies (Unverified , 05/24/19) Home Medications Acetaminophen 500 Mg Tablet, 500 MG PO Q6H PRN for PAIN-MILD OR TEMPATURE, (Reported) Alprazolam 0.5 Mg Tablet, 0.5 MG PO HS, (Reported) Amino Acids/Protein Hydrolys 887 Ml Liquid, 30 ML PO DAILY, (Reported) Amiodarone HCl 200 Mg Tablet, 200 MG PO Q12H, (Reported) Apixaban 5 Mg Tablet, 5 MG PO BID, (Reported) Citalopram Hydrobromide 20 Mg Tablet, 20 MG PO DAILY, (Reported) Citalopram Hydrobromide 10 Mg Tablet, 10 MG PO DAILY, (Reported) Famotidine 20 Mg Tablet, 20 MG PO BID, (Reported) Fluticasone Propionate 16 Gm [place].susp, 2 SPRAYS NS DAILY, (Reported) Guaifenesin 400 Mg Tablet, 400 MG PO QID, (Reported) Ibuprofen 400 Mg Tablet, 400 MG PO TID PRN for PAIN-MILD, (Reported) Ipratropium/Albuterol Sulfate 3 Ml Ampul.neb, 3 ML NEB Q6H PRN for SHORTNESS OF BREATH, (Reported) Magnesium Oxide 400 Mg Tablet, 400 MG PO DAILY, (Reported) Megestrol Acetate 400 Mg/10 Ml Oral.susp, 10 ML PO DAILY, (Reported) Morphine Sulfate 30 Mg Tablet.er, 30 MG PO 0600,1400,2200, (Reported) Multivitamin 1 Each Tablet, 1 TAB PO DAILY, (Reported) Nystatin/Triamcinolone 15 Gm Oint, TP BID PRN for STOMA, (Reported) Ondansetron HCl 4 Mg Tab, 4 MG PO Q4H PRN for NAUSEA/VOMITING-1ST LINE, (Reported) Pregabalin 225 Mg Capsule, 225 MG PO TID, (Reported) Quetiapine Fumarate 50 Mg Tablet, 50 MG PO HS, (Reported) Tamsulosin HCl 0.4 Mg Cap, 0.4 MG PO HS, (Reported) Tea Tree Oil 1 Ml Oil, 4 DROP EACH EAR BID PRN for EAR, (Reported) Tramadol HCl 50 Mg Tablet, 100 MG PO Q6H PRN for PAIN-MODERATE, (Reported) Zinc Gluconate 30 Mg Tablet, 30 MG PO DAILY, (Reported) [Alcohol/Vinegar] , 4 DROPS EACH EAR PRN PRN for EAR PAIN, (Reported) ALCOHOL/WHITE VINEGAR EQUAL PARTS Patient Home Medication List Home Medication List Reviewed: Yes Past Xhgencx-Sbrifg-Rnhdpv Hx Patient Social History Alcohol Use: Past History Number of Drinks Today: AA Recreational Drug Use: No Smoking Status: Current Everyday Smoker Type Used: Cigarettes 2nd Hand Smoke Exposure: No Recent Foreign Travel: No Contact w/Someone Who Travel: No Recent Infectious Disease Expo: No Recent Hopitalizations: No Immunizations Up To Date Date of Pneumonia Vaccine: Dec 09, 2017 Date of Influenza Vaccine: Dec 09, 2017 Seasonal Allergies Seasonal Allergies: No Surgeries History of Surgeries: Yes (Colostomy) Respiratory History of Respiratory Disorde: Yes Respiratory Disorders: COPD, Emphysema Cardiovascular History of Cardiac Disorders: Yes (CHF) Cardiac Disorders: Irregular Heartbeat Neurological History of Neurological Disord: Yes Neurological Disorders: Multiple Sclerosis Genitourinary History of Genitourinary Disor: Yes (renal insufficiency) Gastrointestinal History of Gastrointestinal Di: Yes (Colostomy; ventral hernia) Musculoskeletal History of Musculoskeletal Dis: Yes Musculoskeletal Disorders: Arthritis Endocrine History of Endocrine Disorders: No HEENT History of HEENT Disorders: No Cancer History of Cancer: No Psychosocial History of Psychiatric Problem: Yes Behavioral Health Disorders: Depression Integumentary History of Skin or Integumenta: No Blood Transfusions History of Blood Disorders: No Reviewed Nursing Assessment Reviewed/Agree w Nursing PMH: Yes Family Medical History Significant Family History: No Pertinent Family Hx Family Medial History: FH: CHF (congestive heart failure) 19 FATHER, , Age:70, Onset:60 years & older Review of Systems-General ROS-Unable to Obtain: patient unable to provide due to condition Physical Exam-General Problems Physical Exam Vital Signs Vital Signs - First Documented 09/06/19 09/07/19 23:13 01:47 Temp 40.0 Pulse 115 Resp 21 B/P (MAP) 147/113 (124) Pulse Ox 99 O2 Delivery Nasal Cannula O2 Flow Rate 6.00 Capillary Refill : NONE General Appearance: moderate distress, thin HEENT: PERRL/EOMI, normal ENT inspection Neck: non-tender, supple, normal inspection Respiratory: chest non-tender, no respiratory distress, no accessory muscle use Cardiovascular: regular rate, rhythm, no edema Gastrointestinal: non tender, soft, hernia (large incisional hernia), other (ostomy right lower quadrant) Back: no CVA tenderness, no vertebral tenderness Extremities: non-tender, no pedal edema Neurologic/Psychiatric: no motor/sensory deficits, alert; No oriented x 3 Skin: normal color, warm/dry Lymphatic: no adenopathy Data Review Labs Laboratory Tests 09/08/19 05:50: White Blood Count 13.0H, Red Blood Count 4.11L, Hemoglobin 11.8L, Hematocrit 36L , Mean Corpuscular Volume 86, Mean Corpuscular Hemoglobin 29, Mean Corpuscular Hemoglobin Concent 33, Red Cell Distribution Width 17.3H, Platelet Count 108L, Mean Platelet Volume 12.2H, Neutrophils (%) (Auto) 93H, Lymphocytes (%) (Auto) 2L, Monocytes (%) (Auto) 5, Eosinophils (%) (Auto) 0, Basophils (%) (Auto) 0, Neutrophils # (Auto) 12.1H, Lymphocytes # (Auto) 0.3L, Monocytes # (Auto) 0.6, Eosinophils # (Auto) 0.0, Basophils # (Auto) 0.0, Sodium Level 143, Potassium Level 4.2, Chloride Level 113H, Carbon Dioxide Level 19L, Anion Gap 11, Blood Urea Nitrogen 23H, Creatinine 1.06, Estimat Glomerular Filtration Rate > 60, BUN/Creatinine Ratio 22, Glucose Level 100, Calcium Level 8.0L, Corrected C alcium 9.0, Total Bilirubin 4.5H, Aspartate Amino Transf (AST/SGOT) 37H, Alanine Aminotransferase (ALT/SGPT) 48, Alkaline Phosphatase 194H, Total Protein 5.1L, Albumin 2.7L, Procalcitonin 33.93H 09/08/19 12:25: White Blood Count 11.4H, Red Blood Count 3.73L, Hemoglobin 10.7L, Hematocrit 32L , Mean Corpuscular Volume 87, Mean Corpuscular Hemoglobin 29, Mean Corpuscular Hemoglobin Concent 33, Red Cell Distribution Width 17.5H, Platelet Count 103L, Mean Platelet Volume , Neutrophils (%) (Auto) 92H, Lymphocytes (%) (Auto) 4L, Monocytes (%) (Auto) 4, Eosinophils (%) (Auto) 0, Basophils (%) (Auto) 0, Neutrophils # (Auto) 10.4H, Lymphocytes # (Auto) 0.5L, Monocytes # (Auto) 0.5, Eosinophils # (Auto) 0.0, Basophils # (Auto) 0.0, Sodium Level 143, Potassium Level 4.2, Chloride Level 115H, Carbon Dioxide Level 21, Anion Gap 7, Blood Urea Nitrogen 26H, Creatinine 1.05, Estimat Glomerular Filtration Rate > 60, BUN/Creatinine Ratio 25, Glucose Level 116H, Calcium Level 7.9L, Corrected Calcium 9.1, Total Bilirubin 3.8H, Aspartate Amino Transf (AST/SGOT) 32, Alanine Aminotransferase (ALT/SGPT) 43, Alkaline Phosphatase 164H, Total Protein 4.8L, Albumin 2.5L, Neutrophils % (Manual) 81, Lymphocytes % (Manual) 6, Monocytes % (Manual) 1, Eosinophils % (Manual) 0, Basophils % (Manual) 0, Band Neutrophils 12, Toxic Granulation 2+, Anisocytosis SLIGHT, Lactic Acid Level 0.75, Troponin I < 0.028 09/08/19 12:30: 09/08/19 15:00: Blood Gas Puncture Site ART LINE, Blood Gas Patient Temperature 36.6, Arterial Blood pH 7.20*L, Arterial Blood Partial Pressure CO2 51H, Arterial Blood Partial Pressure O2 146H, Arterial Blood HCO3 19L, Arterial Blood Total CO2 21.0, Arterial Blood Oxygen Saturation 99, Arterial Blood Base Excess -7.4L, Jefferson Test N/A, Blood Gas Ventilator Setting NO, Blood Gas Inspired Oxygen 4L Microbiology 09/07/19 Blood Culture - Preliminary, Resulted Klebsiella pneumoniae 09/06/19 Urine Culture - Preliminary, Resulted Staphylococcus epidermidis Assessment/Plan Assessment/Plan Assessment/Plan septic shock UTI Fever Afib 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 Clinical Quality Measures DVT/VTE Risk/Contraindication: Risk Factor Score Per Nursin RFS Level Per Nursing on Admit: 4+=Very High SERGIO LEE DO Sep 08, 2019 15:52
[2019-09-08 17:27] LABS: ABG BASE EXCESS -7.4 MMOL/L (-2.5-2.5); ABG OXYGEN SATURATION 97 % (94-100); ABG PCO2 46 MMHG (35-45); ABG PO2 94 MMHG (79-93); ABG TCO2 20.4 MMOL/L (21.0-31.0)
[2019-09-08 17:30] LABS: ABG PH 7.24 (7.37-7.43); INSPIRED O2 30%; PATIENT TEMP 36.4; VENTILATOR NO
[2019-09-08] MEDS: TAMSULOSIN 0.4 MG (FLOMAX) CAP PO SCH (20:30)
[2019-09-08] MEDS: QUEtiapine 100 MG (SEROquel) TAB IMMEDIATE RELEASE PO SCH (20:31)
[2019-09-08] MEDS: ALPRAZolam 0.5 MG (XANAX) TAB PO SCH (20:31)
--- NOTE | 2019-09-08 20:38 | NUR ---
THIS RN CALLED TELE-ICU TO UPDATE DR. PA ON PT'S MOST RECENT ABG LEVELS. THIS RN INSTRUCTED TO CHANGE EPAP FROM 5 TO 8. RT NOTIFIED. THIS RN ALSO DISCUSSED WITH DR. PA THAT PT IS TOO LETHARGIC FOR THIS RN TO ADMINISTER EVEN PO MEDICATIONS.
[2019-09-09] VITALS (26 sets, daily range): BP systolic 81–143; BP diastolic 51–115
[2019-09-09] MEDS: NOREPINEPHRINE 4 MG/250 ML 250 ML IV SCH ×2 (00:25→20:22)
--- NOTE | 2019-09-09 02:12 | OPERATIVE REPORT ---
DATE OF SERVICE: 09/08/2019 PREOPERATIVE DIAGNOSIS: Hypotension. POSTOPERATIVE DIAGNOSIS: Hypotension. PROCEDURE: Left femoral vein ultrasound-guided central line placement and left brachial art line placement. SURGEON: Sergio Gillespie DO ANESTHESIA: A 1% lidocaine. ESTIMATED BLOOD LOSS: Minimal. COMPLICATIONS: None. INDICATIONS: The patient is a 69-year-old male, who has been transferred to the intensive care unit. He is hypotensive. It has been requested that I urgently place a central line and art line. DESCRIPTION OF PROCEDURE: The patient was prepped and draped in sterile fashion in left groin. Using ultrasound guidance, the left femoral vein was identified. Local anesthetic was infiltrated around the femoral vein. The vein was then accessed under ultrasound guidance. Dark nonpulsatile blood was withdrawn. A guidewire was inserted through the needle and the needle was removed. A #11 blade scalpel was used to make a small skin incision at the insertion point. Dilator was then advanced over the guidewire and removed. The triple lumen catheter was then advanced over the guidewire and the wire was removed. All ports were accessed and flushed without difficulty. The catheter was secured in the usual fashion. The area was washed and dried and sterile bandage was applied. The left radial artery was palpable. He had good flow from both the radial and ulnar artery into the hand. No signs of any ischemia. The left radial artery was faint, but palpable. The three attempts were made on the left radial artery using ultrasound guidance, but was unable to successfully thread the wire on the art line catheter. Therefore, pressure was held. Anesthesia was also called to attempt a right radial artery, which was unsuccessful. I was able to palpate a left brachial artery and the left brachial artery was able to be accessed. The wire was then advanced and the catheter was advanced over the wire. Good pulsatile blood was present from the catheter and then the catheter was secured. The patient tolerated procedure well without any complications. Job ID: [id number] DocumentID: [id number] Dictated Date: 09/08/2019 15:29:37 Offshore Diver Date: 09/09/2019 02:11:20 Dictated By: SERGIO GILLESPIE DO
[2019-09-09 02:24] LABS: BASOPHILS % (AUTO) 0 % (0-10); EOSINOPHILS % (AUTO) 0 % (0-10); HEMATOCRIT 35 % (40-54); HEMOGLOBIN 11.6 G/DL (13.3-17.7); LYMPHOCYTES # (AUTO) 0.3 X 10^3 (1.0-4.0); LYMPHOCYTES % (AUTO) 2 % (12-44); MEAN CORPUSCULAR HEMOGLOBIN 29 PG (25-34); MEAN CORPUSCULAR HGB CONC 33 G/DL (32-36); MEAN CORPUSCULAR VOLUME 87 FL (80-99); MONOCYTES # (AUTO) 0.5 X 10^3 (0.0-1.0); MONOCYTES % (AUTO) 4 % (0-12); NEUTROPHILS # (AUTO) 12.9 X 10^3 (1.8-7.8); NEUTROPHILS % (AUTO) 94 % (42-75); PLATELET COUNT 125 10^3/uL (130-400); WHITE BLOOD COUNT 13.7 10^3/uL (4.3-11.0)
[2019-09-09 02:37] LABS: ALBUMIN 2.6 GM/DL (3.2-4.5); CHLORIDE 115 MMOL/L (98-107); POTASSIUM 4.5 MMOL/L (3.6-5.0); SODIUM 144 MMOL/L (135-145)
[2019-09-09 02:38] LABS: CALCIUM 8.6 MG/DL (8.5-10.1)
[2019-09-09 02:39] LABS: GLUCOSE 124 MG/DL (70-105); TOTAL PROTEIN 5.1 GM/DL (6.4-8.2)
[2019-09-09 02:40] LABS: CARBON DIOXIDE 18 MMOL/L (21-32)
[2019-09-09 02:41] LABS: BILIRUBIN,TOTAL 3.4 MG/DL (0.1-1.0)
[2019-09-09 02:43] LABS: ALKALINE PHOSPHATASE 168 U/L (40-136); CREATININE SERUM 0.99 MG/DL (0.60-1.30); GFR ESTIMATED > 60; PHOSPHORUS 3.5 MG/DL (2.3-4.7)
[2019-09-09 02:44] LABS: BUN/CREATININE RATIO 28
[2019-09-09 02:46] LABS: ALANINE AMINOTRANSFERASE 38 U/L (0-55); MAGNESIUM 1.5 MG/DL (1.6-2.4)
[2019-09-09] MEDS: POTASSIUM CL 10MEQ/50ML IVPB 50 ML IV SCH (02:52)
[2019-09-09] MEDS: KCL 20 MEQ TAB (K-DUR) PO SCH (02:53)
[2019-09-09] MEDS: MAGNESIUM 1 GM/100 ML IVPB 100 ML IV SCH ×3 (02:53→05:07)
[2019-09-09 02:58] LABS: ABG BASE EXCESS -5.9 MMOL/L (-2.5-2.5); ABG OXYGEN SATURATION 98 % (94-100); ABG PCO2 41 MMHG (35-45); ABG PO2 104 MMHG (79-93); ABG TCO2 20.9 MMOL/L (21.0-31.0)
[2019-09-09 03:00] LABS: ABG PH 7.29 (7.37-7.43); ALLENS TEST YES-POS; INSPIRED O2 30%; PATIENT TEMP 36.4; VENTILATOR NO
[2019-09-09] MEDS: LACTATED RINGERS 1,000 ML IV SCH ×5 (03:18→21:06)
[2019-09-09] MEDS: morphine ER 30 MG (MS CONTIN) TAB PO SCH ×3 (04:48→22:42)
[2019-09-09] MEDS: MEROPENEM 500 MG in WATER (STERILE) FOR INJECTION 10 ML IV SCH ×4 (05:07→23:34)
--- NOTE | 2019-09-09 05:52 | Pulmonary Progress Note ---
Subjective Time Seen by a Provider: 05:47 Subjective/Events-last exam Pt is currently on BiPAP. Still on pressors. Sepsis Event Evaluation Height, Weight, BMI Height: 5'8.00" Weight: 156lbs. 2.0oz. 70.451790tr; 18.34 BMI Method:Stated Focused Exam Lactate Level 09/06/19 22:45: Lactic Acid Level 3.68*H 09/07/19 05:15: Lactic Acid Level 0.68 09/08/19 12:25: Lactic Acid Level 0.75 Exam Exam Vital Signs Date Time Temp Pulse Resp B/P (MAP) Pulse Ox O2 Delivery O2 Flow Rate FiO2 09/09/19 05:07 61 133/71 09/09/19 05:00 56 131/82 (98) 98 NIV Bilevel 30.00 09/09/19 04:00 64 117/88 (98) 98 NIV Bilevel 30.00 09/09/19 03:52 NIV Bilevel 30 09/09/19 03:30 36.4 09/09/19 03:00 56 11 107/67 (80) 97 NIV Bilevel 30.00 09/09/19 02:00 57 16 112/60 (77) 98 NIV Bilevel 30.00 09/09/19 01:00 53 09/09/19 01:00 53 30 114/66 (82) 98 NIV Bilevel 30.00 09/09/19 00:30 51 12 105/65 (78) 98 NIV Bilevel 30.00 09/09/19 00:25 64 84/51 09/09/19 00:00 69 16 81/51 (61) 96 NIV Bilevel 30.00 09/08/19 23:29 NIV Bilevel 30 09/08/19 23:05 36.6 09/08/19 23:00 57 21 100/61 (74) 99 NIV Bilevel 30.00 09/08/19 22:44 60 94/63 (73) 98 NIV Bilevel 30.00 09/08/19 21:09 61 10 103/75 (84) 99 NIV Bilevel 30.00 09/08/19 20:52 60 22 104/90 (95) 98 NIV Bilevel 30.00 09/08/19 20:18 36.6 09/08/19 20:00 NIV Bilevel 30 6/30/20 19:08 58 32 108/58 (75) 99 NIV Bilevel 30.00 09/08/19 19:00 57 09/08/19 18:00 62 45 103/58 (73) 99 NIV Bilevel 09/08/19 17:00 63 16 111/59 (76) 98 NIV Bilevel 09/08/19 16:00 59 16 107/57 (74) 98 NIV Bilevel 09/08/19 15:52 63 18 99 30.00 09/08/19 15:00 64 10 105/53 (70) 90 NIV Bilevel 09/08/19 14:00 61 17 116/53 (74) 100 NIV Bilevel 09/08/19 13:48 102/52 09/08/19 13:00 64 10 96/61 (73) 83 NIV Bilevel 09/08/19 13:00 65 09/08/19 12:00 63 10 100 NIV Bilevel 09/08/19 11:00 63 7 71/45 (54) 99 NIV Bilevel 09/08/19 10:00 67 8 81/54 (63) 99 Nasal Cannula 6.00 09/08/19 08:25 36.2 74 16 77/48 (58) 100 Nasal Cannula 6.00 09/08/19 08:00 100 Nasal Cannula 6.00 09/08/19 07:09 Nasal Cannula 5.00 I & O 09/09/19 07:00 Intake Total 2400 ml Output Total 490 ml Balance 1910 ml Height & Weight Height: 5'8.00" Weight: 156lbs. 2.0oz. 70.358549fp; 18.34 BMI Method:Stated General Appearance: Anxious, Chronically ill, Cachetic, Mild Distress HEENT: PERRL/EOMI, Normal ENT Inspection, Pharynx Normal, Moist Mucous Membranes Neck: Full Range of Motion, Normal Inspection, Non Tender Respiratory: Decreased Breath Sounds, Wheezing Cardiovascular: Regular Rate, Rhythm Capillary Refill: Less Than 3 Seconds Gastrointestinal: non tender, soft, hernia (large incisional hernia), other (ostomy right lower quadrant) Extremity: Normal Capillary Refill, Normal Inspection, Normal Range of Motion, Non Tender, No Calf Tenderness, No Pedal Edema Neurologic/Psychiatric: Alert, Other (drowsy) Skin: Normal Color, Warm/Dry Lymphatic: No Adenopathy Results Lab Laboratory Tests 6/30/20 05:50 09/08/19 12:25 09/09/19 02:05 Assessment/Plan Assessment/Plan Severe Sepsis with shock -IVF 30cc/kg -Continue Vanco and Merrem. -repeat mccullough cultures and LA ordered -COVID negative - D/C isolation -Obtain PICC line then D/C femoral central line -Arterial line is not working - will d/c Bacteremia and hypotension -Check echo -Give a liter bolus -titrate Levophed down UTI with sepsis -Continue Vanco and Merrem ANNELISE HOOVER DO Sep 09, 2019 05:52
[2019-09-09] MEDS ORDERED: LACTATED RINGERS 1,000 ML IV SCH (06:00)
[2019-09-09] MEDS: HYDROCORTISONE 100 MG/2 ML (Solu-CORTEF) VIAL IV SCH ×3 (06:36→22:42)
[2019-09-09] MEDS ORDERED: LACTATED RINGERS 1,000 ML IV ONE (06:45)
[2019-09-09 07:00] LABS: CLARITY,URINE CLEAR; COLOR,URINE ORANGE; GLUCOSE, URINE (UA) NEGATIVE (NEGATIVE); KETONES,URINE TRACE (NEGATIVE); LEUKOCYTE ESTERASE ,URINE NEGATIVE (NEGATIVE); NITRITE,URINE NEGATIVE (NEGATIVE); PROTEIN,URINE 1+ (NEGATIVE)
[2019-09-09 07:17] LABS: BACTERIA,URINE NEGATIVE /HPF; BILIRUBIN,URINE 2+ (NEGATIVE); SQUAMOUS EPITHELIAL CELL,UR RARE /HPF; WBC,URINE RARE /HPF
[2019-09-09 07:18] LABS: GRANULAR CASTS,URINE 0-2 /LPF
[2019-09-09] MEDS: APIXABAN 5 MG (ELIQUIS) TABLET PO SCH ×2 (08:23→20:03)
[2019-09-09] MEDS: AMIODARONE 200 MG (CORDARONE) TAB PO SCH ×2 (08:23→22:42)
[2019-09-09] MEDS: MAGNESIUM OXIDE (MAG-OX)400 MG TAB PO SCH (08:23)
[2019-09-09] MEDS: PREGABALIN 75 MG (LYRICA) CAP PO SCH ×3 (08:23→20:03)
[2019-09-09] MEDS: MEGESTROL ACETATE 400 MG/10 ML (MEGACE) UDC PO SCH (08:24)
[2019-09-09] MEDS: FAMOTIDINE 20 MG (PEPCID) TABLET PO SCH ×2 (08:24→20:03)
[2019-09-09] MEDS: guaiFENesin SYRUP 100 MG/5 ML 10 ML (ROBITUSSIN SF) PO SCH ×4 (08:24→20:03)
[2019-09-09] MEDS: MULTIVIT W/MINERALS TAB (THERAGRAN M) PO SCH (08:29)
[2019-09-09] MEDS: FLUTICASONE NASAL SPRAY (FLONASE) 16 GM BTL NS SCH (08:41)
--- NOTE | 2019-09-09 09:31 | Progress Note - Hospitalist ---
Subjective HPI/CC On Admission Date Seen by Provider: Sep 09, 2019 Time Seen by Provider: 10:00 CC: Pneumonia HPI: This is a 69yoWM clinic pt of Dr. Hernandez who presented with cough, SOB, hypoxia and temperature of 104. Pt was placed in the hospital. Started on Vanc and Zosyn, changed to Rocephin and since that time he is a Covid-19 rule out so we are waiting for that result. I did use PPE to see him. WC 13.8. Appetite has decreased and he lives at [facility] in [place]. We will DC Rocephin and start him back on Zosyn because the lungs are coarse and he is still running a fever and WC is elevated. Subjective/Events-last exam Pt feeling a little bit of right upper quadrant pain Colostomy maintained Now on vapotherm sat at 88% Pt appears to be very critically ill and debilitated Unsure of the next step considering he is on Meropenem and Vancomycin required pressor therapy and he's on Solucortef for presumed adrenal insufficiency Checked meds and labs Review of Systems General: Fatigue, Malaise Pulmonary: Dyspnea, Cough Gastrointestinal: Nausea, Abdominal Pain Neurological: Confusion Focused Exam Lactate Level 09/06/19 22:45: Lactic Acid Level 3.68*H 09/07/19 05:15: Lactic Acid Level 0.68 09/08/19 12:25: Lactic Acid Level 0.75 Objective Exam Vital Signs Vital Signs Date Time Temp Pulse Resp B/P (MAP) Pulse Ox O2 Delivery O2 Flow Rate FiO2 09/09/19 20:00 37.1 09/09/19 20:00 Vapotherm 30.00 40 09/09/19 18:30 98 09/09/19 18:00 76 17 90/70 (77) Capillary Refill : Less Than 3 Seconds General Appearance: No Apparent Distress, Anxious, Chronically ill, Cachetic Respiratory: Chest Non Tender, Lungs Clear, Normal Breath Sounds, No Accessory Muscle Use, No Respiratory Distress Cardiovascular: Regular Rate, Rhythm, No Edema, No Gallop, No JVD, No Murmur, Normal Peripheral Pulses Gastrointestinal: Normal Bowel Sounds, No Organomegaly, No Pulsatile Mass, Non Tender, Soft, Other (colostomy in place) Neurologic/Psychiatric: Alert, Oriented x3, No Motor/Sensory Deficits, Normal Mood/Affect Results/Procedures Lab Laboratory Tests 09/09/19 02:05 Patient resulted labs reviewed. Assessment/Plan Assessment and Plan Assess & Plan/Chief Complaint Assessment: Septic shock due to gram negative bacteremia on Meropenem UTI on Meropenem and Vanc Presumed adrenal insufficiency Impending decompensation Fever Hypoxia Dehydration MS Chronic debility Colostomy status Hypoxia on vapotherm Plan: IV Meropenem and Vanc IV Steroids IVF Monitor closely Lovenox DC when OAC started home dose ICU transfer Diagnosis/Problems Diagnosis/Problems (1) Sepsis Status: Acute (2) Urinary tract infection Status: Acute (3) PUI (4) COPD (chronic obstructive pulmonary disease) Status: Acute (5) Wheelchair dependence Status: Chronic (6) Chronic pain Status: Chronic (7) Multiple sclerosis Status: Chronic (8) Atrial fibrillation Status: Chronic (9) Smoker Status: Chronic Clinical Quality Measures DVT/VTE Risk/Contraindication: Risk Factor Score Per Nursin RFS Level Per Nursing on Admit: 4+=Very High CORINE LU DO Sep 09, 2019 09:31
--- NOTE | 2019-09-09 10:41 | Physical Therapy Progress Note ---
Therapy Progress Note Patient went to ICU from the 4th floor. Notified nurse that we will need new orders to evaluate patient due to a decline in medical status. Nurse understood and said that she was not sure if it would be today because the patient was still hypotensive. DANIELLA SPAIN PT Sep 09, 2019 10:41
--- NOTE | 2019-09-09 11:00 | NUR ---
Pastoral care visit.
--- NOTE | 2019-09-09 12:57 | Consultation-Cardiology ---
HPI-Cardiology Cardiology Consultation: Date of Consultation 09/09/19 Date of Admission Attending Physician Devon Hayes MD Admitting Physician Feliz Hernandez MD Consulting Physician Angelica CHOI MD HPI: Time Seen by a Provider: 09:00 Chief Complaint: Shortness of breath This is a 69-year-old gentleman who has history of CAD and PCI. Past history of MD. Patient also has history of atrial fibrillation and is on oral anticoagulation therapy. He is an active smoker. He lives in a long term and was brought to the hospital for fever. Patient is full code. There is mild dementia. He denies any chest pain but was found to be hypoxic in the ER. He is being treated for sepsis. Review of Systems-Cardiology Review of Systems Constitutional: As described under HPI; No As described under HPI, No no symptoms reported, No chills, No fever, No lightheadedness; tiredness Eyes: No As described under HPI, No no symptoms reported, No blindness, No blurred vision, No contact lenses, No drainage, No decreased acuity, No foreign body sensation, No pain, No vision change Ears/Nose/Throat: No As described under HPI, No no symptoms reported, No chronic hearing loss, No ear discharge, No ear pain, No nasal drainage, No ulcerations Respiratory: No no symptoms reported; As described under HPI; No As described under HPI, No cough, No orthopnea; shortness of breath; No SOB with excertion Cardiovascular: No no symptoms reported; As described under HPI; No As described under HPI, No chest pain, No edema, No irregular heart rate, No lightheadedness, No palpitations Gastrointestinal: No no symptoms reported, No As described under HPI, No abdomen distended, No abdominal pain, No blood streaked bowels, No constipation, No diarrhea, No nausea, No vomiting, No stool coloration changes Genitourinary: No As described under HPI, No burning, No dysuria, No discharge, No frequency, No flank pain, No hematuria, No urgency Skin: No rash, No skin related problems, No ulcerations Psychiatric/Neurological: No anxiety, No depression, No seizure, No focal weakness, No syncope Hematologic: No bleeding abnormalities All Other Systems Reviewed Negative Unless Noted: Yes [id number] Hx Patient Social History Marrital Status: single Employed/Student: retired Alcohol Use: Past History Recreational Drug Use: No Smoking Status: Current Everyday Smoker Type Used: Cigarettes 2nd Hand Smoke Exposure: No Recent Foreign Travel: No Recent Infectious Disease Expo: No Hospitalization with Isolation: Denies Immunizations Up To Date Date of Pneumonia Vaccine: Dec 09, 2017 Date of Influenza Vaccine: Dec 09, 2017 Past Medical History PMH As described under Assessment. Family Medical History Family History: FH: CHF (congestive heart failure) 19 FATHER, , Age:70, Onset:60 years & older Allergies and Home Medications Allergies Coded Allergies: No Known Drug Allergies (Unverified , 05/24/19) Home Medications Acetaminophen 500 Mg Tablet, 500 MG PO Q6H PRN for PAIN-MILD OR TEMPATURE, (Reported) Alprazolam 0.5 Mg Tablet, 0.5 MG PO HS, (Reported) Amino Acids/Protein Hydrolys 887 Ml Liquid, 30 ML PO DAILY, (Reported) Amiodarone HCl 200 Mg Tablet, 200 MG PO Q12H, (Reported) Apixaban 5 Mg Tablet, 5 MG PO BID, (Reported) Citalopram Hydrobromide 20 Mg Tablet, 20 MG PO DAILY, (Reported) Citalopram Hydrobromide 10 Mg Tablet, 10 MG PO DAILY, (Reported) Famotidine 20 Mg Tablet, 20 MG PO BID, (Reported) Fluticasone Propionate 16 Gm [place].susp, 2 SPRAYS NS DAILY, (Reported) Guaifenesin 400 Mg Tablet, 400 MG PO QID, (Reported) Ibuprofen 400 Mg Tablet, 400 MG PO TID PRN for PAIN-MILD, (Reported) Ipratropium/Albuterol Sulfate 3 Ml Ampul.neb, 3 ML NEB Q6H PRN for SHORTNESS OF BREATH, (Reported) Magnesium Oxide 400 Mg Tablet, 400 MG PO DAILY, (Reported) Megestrol Acetate 400 Mg/10 Ml Oral.susp, 10 ML PO DAILY, (Reported) Morphine Sulfate 30 Mg Tablet.er, 30 MG PO 0600,1400,2200, (Reported) Multivitamin 1 Each Tablet, 1 TAB PO DAILY, (Reported) Nystatin/Triamcinolone 15 Gm Oint, TP BID PRN for STOMA, (Reported) Ondansetron HCl 4 Mg Tab, 4 MG PO Q4H PRN for NAUSEA/VOMITING-1ST LINE, (Reported) Pregabalin 225 Mg Capsule, 225 MG PO TID, (Reported) Quetiapine Fumarate 50 Mg Tablet, 50 MG PO HS, (Reported) Tamsulosin HCl 0.4 Mg Cap, 0.4 MG PO HS, (Reported) Tea Tree Oil 1 Ml Oil, 4 DROP EACH EAR BID PRN for EAR, (Reported) Tramadol HCl 50 Mg Tablet, 100 MG PO Q6H PRN for PAIN-MODERATE, (Reported) Zinc Gluconate 30 Mg Tablet, 30 MG PO DAILY, (Reported) [Alcohol/Vinegar] , 4 DROPS EACH EAR PRN PRN for EAR PAIN, (Reported) ALCOHOL/WHITE VINEGAR EQUAL PARTS Patient Home Medication List Home Medication List Reviewed: Yes Physical Exam-Cardiology Physical Exam Vital Signs/I&O 09/09/19 09/09/19 09/09/19 09/09/19 02:00 03:00 03:30 03:52 Temp 36.4 Pulse 57 56 Resp 16 11 B/P (MAP) 112/60 (77) 107/67 (80) Pulse Ox 98 97 O2 Delivery NIV Bilevel NIV Bilevel NIV Bilevel O2 Flow Rate 30.00 30.00 FiO2 30 09/09/19 09/09/19 09/09/19 09/09/19 04:00 05:00 05:07 06:00 Pulse 64 56 61 57 Resp 8 B/P (MAP) 117/88 (98) 131/82 (98) 133/71 134/86 (102) Pulse Ox 98 98 97 O2 Delivery NIV Bilevel NIV Bilevel NIV Bilevel O2 Flow Rate 30.00 30.00 30.00 09/09/19 09/09/19 09/09/19 09/09/19 06:39 07:00 07:00 07:01 Pulse 64 65 64 66 Resp 44 16 B/P (MAP) 146/112 143/115 (124) 139/91 Pulse Ox 99 96 O2 Delivery NIV Bilevel O2 Flow Rate 30.00 25.00 09/09/19 09/09/19 09/09/19 09/09/19 07:16 08:00 08:00 09:00 Pulse 63 72 Resp 30 7 B/P (MAP) 121/76 (91) 118/78 (91) Pulse Ox 96 90 88 O2 Delivery Vapotherm Vapotherm NIV Bilevel NIV Bilevel O2 Flow Rate 30.00 30.00 30.00 30.00 FiO2 21 21 09/09/19 11:23 Temp 37.0 09/09/19 00:00 Intake Total 1000 ml Output Total 340 ml Balance 660 ml Capillary Refill : Less Than 3 Seconds Constitutional: appears stated age, AAO x 3; No apparent distress HEENT: PERRL; No discharge; hearing is well preserved, oral hygience is good; No ulceration, No xanthelasmas are seen Neck: No carotid bruit; carotid pulses are 2 + bilaterally Respiratory: chest is bilaterally symmetric, other (decreased breath sounds bilaterally.) Cardiovascular: regular rate-rhythm, S1 and S2; No diastolic murmur, No systolic murmur Gastrointestinal: soft, audible bowel sounds; No spleenomegaly Rectal: deferred Extremities: normal range of motion, non-tender, normal inspection; No clubbing, No cyanosis; no lower extremity edema bilateral; No significant edema Neurologic/Psychiatric: no motor/sensory deficits, alert, normal mood/affect, oriented x 3, power is 5/5 both on sides Skin: normal color; No rash, No ulcerations Lymphatic: no adenopathy Data Review Labs Laboratory Tests 09/08/19 15:00: Blood Gas Puncture Site ART LINE, Blood Gas Patient Temperature 36.6, Arterial Blood pH 7.20*L, Arterial Blood Partial Pressure CO2 51H, Arterial Blood Partial Pressure O2 146H, Arterial Blood HCO3 19L, Arterial Blood Total CO2 21.0, Arterial Blood Oxygen Saturation 99, Arterial Blood Base Excess -7.4L, Jefferson Test N/A, Blood Gas Ventilator Setting NO, Blood Gas Inspired Oxygen 4L 09/08/19 17:25: Blood Gas Puncture Site ART LINE, Blood Gas Patient Temperature 36.4, Arterial Blood pH 7.24*L, Arterial Blood Partial Pressure CO2 46H, Arterial Blood Partial Pressure O2 94H, Arterial Blood HCO3 19L, Arterial Blood Total CO2 20.4L, Arterial Blood Oxygen Saturation 97, Arterial Blood Base Excess -7.4L, Jefferson Test N/A, Blood Gas Ventilator Setting NO, Blood Gas Inspired Oxygen 30% 09/09/19 02:05: White Blood Count 13.7H, Red Blood Count 4.07L, Hemoglobin 11.6L, Hematocrit 35L , Mean Corpuscular Volume 87, Mean Corpuscular Hemoglobin 29, Mean Corpuscular Hemoglobin Concent 33, Red Cell Distribution Width 18.0H, Platelet Count 125L, Mean Platelet Volume 13.0H, Neutrophils (%) (Auto) 94H, Lymphocytes (%) (Auto) 2L, Monocytes (%) (Auto) 4, Eosinophils (%) (Auto) 0, Basophils (%) (Auto) 0, Neutrophils # (Auto) 12.9H, Lymphocytes # (Auto) 0.3L, Monocytes # (Auto) 0.5, Eosinophils # (Auto) 0.0, Basophils # (Auto) 0.0, Sodium Level 144, Potassium Level 4.5, Chloride Level 115H, Carbon Dioxide Level 18L, Anion Gap 11, Blood Urea Nitrogen 28H, Creatinine 0.99, Estimat Glomerular Filtration Rate > 60, BUN/Creatinine Ratio 28, Glucose Level 124H, Calcium Level 8.6, Corrected Calcium 9.7, Phosphorus Level 3.5, Magnesium Level 1.5L, Total Bilirubin 3.4H, Aspartate Amino Transf (AST/SGOT) 17, Alanine Aminotransferase (ALT/SGPT) 38, Alkaline Phosphatase 168H, Total Protein 5.1L, Albumin 2.6L 09/09/19 02:15: Blood Gas Puncture Site RIGHT RADIAL, Blood Gas Patient Temperature 36.4, Arterial Blood pH 7.29*L, Arterial Blood Partial Pressure CO2 41, Arterial Blood Partial Pressure O2 104H, Arterial Blood HCO3 20L, Arterial Blood Total CO2 20.9L, Arterial Blood Oxygen Saturation 98, Arterial Blood Base Excess -5.9L, Jefferson Test YES-POS, Blood Gas Ventilator Setting NO, Blood Gas Inspired Oxygen 30% 09/09/19 06:42: Urine Color ORANGE, Urine Clarity CLEAR, Urine pH 6.0, Urine Specific [place] 1.025H, Urine Protein 1+H, Urine Glucose (UA) NEGATIVE, Urine Ketones TRACEH, Urine Nitrite NEGATIVE, Urine Bilirubin 2+H, Urine Urobilinogen 1.0, Urine Leukocyte Esterase NEGATIVE, Urine RBC (Auto) NEGATIVE, Urine RBC NONE, Urine WBC RARE, Urine Squamous Epithelial Cells RARE, Urine Crystals NONE, Urine Bacteria NEGATIVE, Urine Casts PRESENT, Urine Granular Casts 0-2H, Urine Mucus NEGATIVE, Urine Culture Indicated NO Microbiology 09/07/19 Blood Culture - Final, Complete Klebsiella pneumoniae 09/06/19 Urine Culture - Preliminary, Resulted Staphylococcus epidermidis ECG Impression ECG Initial ECG Rhythm: S.Tach Initial ECG Impression: Nonspecific Changes A/P-Cardiology Assessment/Admission Diagnosis Sepsis, septic shock, UTI sepsis, History of CAD, PCI, Paroxysmal atrial fibrillation, Active smoking Plan Sepsis, septic shock, defer to the primary team. Aggressive IV fluid assess sedation and broad-spectrum antibiotics. On IV pressors. Bacteremia, echocardiogram pending. Blood culture shows Klebsiella pneumoniae, which is rare in infective endocarditis and present in 1 percent of all infective endocarditis patients. However we will review echocardiogram and if any valvular heart disease, may have low threshold for transesophageal echocardiogram. History of CAD, PCI, continue outpatient medical therapy. Not on aspirin or Plavix. Not on statin therapy. Paroxysmal atrial fibrillation, on amiodarone and Eliquis. Active smoking, smoking cessation was strongly recommended. COVID-19 negative. Thank you for your consultation. Please call me if you have any questions. Felecia Choi MD, FACP, FACC, FSCAI, FHRS, CCDS Interventional Cardiology Cardiac Electrophysiology Vascular Medicine and Endovascular Interventions Clinical Quality Measures DVT/VTE Risk/Contraindication: Risk Factor Score Per Nursin RFS Level Per Nursing on Admit: 4+=Very High Angelica CHOI MD Sep 09, 2019 12:56
[2019-09-09] MEDS: VANCOMYCIN 1 GM/NS 250 ML IVPB IV SCH ×2 (13:13)
--- NOTE | 2019-09-09 13:15 | NUR ---
TO BEDSIDE FOR PICC PLACEMENT. PT REFUSED PLACEMENT. HE SAID, "I HAD THIS DONE YESTERDAY." INFORMED PT THAT PHYSICIANS ARE HOPING TO AVOID INFECTION IN FEMORAL LINE BY REPLACING IN UPPER ARM. PT STATED, "MAYBE WE CAN DO IT LATER." PT HYPOXIC AT THIS TIME, SAO2 APPROX 87-90%. RN AT BEDSIDE. WILL REEVAL NEEDED.
--- NOTE | 2019-09-09 13:44 | NUR ---
CM/SS: Visited with pt as to his current status and plan for discharge Plan: Pt will return to [facility] in [place] where he previously lived, when medically appropriate Summary: Pt reports not doing so well today. Pt is given a message that this worker had spoke with Em, Watershed [employer] of [facility] on the other day and she wanted him to know that she was thinking about him and wanted him to get better. Pt reports he was not feeling as good. This worker shared she wanted to get an update, so that they could call and let the Assisted Living know how he was doing. Pt did not want to visit with this worker any further. This worker shared they would follow up at a later time.
[2019-09-09] MEDS: TAMSULOSIN 0.4 MG (FLOMAX) CAP PO SCH (20:03)
[2019-09-09] MEDS: QUEtiapine 100 MG (SEROquel) TAB IMMEDIATE RELEASE PO SCH (20:03)
[2019-09-09] MEDS: ALPRAZolam 0.5 MG (XANAX) TAB PO SCH (20:03)
[2019-09-10] VITALS (25 sets, daily range): BP systolic 80–138; BP diastolic 59–90
[2019-09-10 02:24] LABS: BASOPHILS % (AUTO) 0 % (0-10); EOSINOPHILS % (AUTO) 0 % (0-10); HEMATOCRIT 33 % (40-54); LYMPHOCYTES # (AUTO) 0.3 X 10^3 (1.0-4.0); LYMPHOCYTES % (AUTO) 3 % (12-44); MEAN CORPUSCULAR HEMOGLOBIN 28 PG (25-34); MEAN CORPUSCULAR HGB CONC 33 G/DL (32-36); MEAN CORPUSCULAR VOLUME 84 FL (80-99); MONOCYTES # (AUTO) 0.5 X 10^3 (0.0-1.0); MONOCYTES % (AUTO) 4 % (0-12); NEUTROPHILS # (AUTO) 10.7 X 10^3 (1.8-7.8); NEUTROPHILS % (AUTO) 93 % (42-75); PLATELET COUNT 101 10^3/uL (130-400); RED CELL DISTRIBUTION WIDTH 17.3 % (10.0-14.5); WHITE BLOOD COUNT 11.5 10^3/uL (4.3-11.0)
[2019-09-10 03:04] LABS: ALANINE AMINOTRANSFERASE 38 U/L (0-55); ALBUMIN 2.5 GM/DL (3.2-4.5); ALKALINE PHOSPHATASE 223 U/L (40-136); BUN/CREATININE RATIO 33; CALCIUM 8.2 MG/DL (8.5-10.1); CARBON DIOXIDE 21 MMOL/L (21-32); CHLORIDE 111 MMOL/L (98-107); CREATININE SERUM 0.85 MG/DL (0.60-1.30); GFR ESTIMATED > 60; GLUCOSE 114 MG/DL (70-105); MAGNESIUM 1.8 MG/DL (1.6-2.4); PHOSPHORUS 1.8 MG/DL (2.3-4.7); SODIUM 142 MMOL/L (135-145); TOTAL PROTEIN 4.8 GM/DL (6.4-8.2)
[2019-09-10] MEDS: KCL 20 MEQ TAB (K-DUR) PO SCH (03:36)
[2019-09-10] MEDS: POTASSIUM CL 10MEQ/50ML IVPB 50 ML IV SCH (03:36)
[2019-09-10] MEDS: MAGNESIUM 1 GM/100 ML IVPB 100 ML IV SCH (03:36)
--- NOTE | 2019-09-10 05:12 | Pulmonary Progress Note ---
Subjective Time Seen by a Provider: 05:06 Subjective/Events-last exam Pt appears to be doing better. Sepsis Event Evaluation Height, Weight, BMI Height: 5'8.00" Weight: 156lbs. 2.0oz. [id number]; 18.34 BMI Method:Stated Focused Exam Lactate Level 09/07/19 05:15: Lactic Acid Level 0.68 09/08/19 12:25: Lactic Acid Level 0.75 Exam Exam Vital Signs Date Time Temp Pulse Resp B/P (MAP) Pulse Ox O2 Delivery O2 Flow Rate FiO2 09/10/19 03:45 37.3 09/10/19 03:45 Vapotherm 30.00 40 09/10/19 03:30 Vapotherm 30.00 30.00 09/10/19 03:00 84 8 124/84 (97) 96 NIV Bilevel 25.00 09/10/19 02:39 72 16 95 25.00 09/10/19 02:19 NIV Bilevel 25.00 09/10/19 02:00 66 13 122/81 (95) 93 Vapotherm 30.00 40.00 09/10/19 01:00 72 11 121/79 (93) 93 Vapotherm 30.00 40.00 09/10/19 01:00 70 09/10/19 00:00 80 18 109/73 (85) 96 Vapotherm 30.00 40.00 09/09/19 23:56 Vapotherm 30.00 40 09/09/19 23:54 37.5 09/09/19 23:00 77 14 133/76 (95) 97 Vapotherm 30.00 40.00 09/09/19 22:00 75 13 130/82 (98) 96 Vapotherm 30.00 40.00 09/09/19 21:13 94 Vapotherm 30.00 30 09/09/19 21:00 77 10 123/85 (98) 96 Vapotherm 30.00 40.00 09/09/19 20:00 37.1 09/09/19 20:00 Vapotherm 30.00 40 09/09/19 20:00 77 120/79 (93) 97 Vapotherm 30.00 40.00 09/09/19 19:00 Vapotherm 30.00 40.00 09/09/19 19:00 78 17 108/76 (87) 95 Vapotherm 30.00 40.00 09/09/19 19:00 81 09/09/19 18:30 98 Vapotherm 30.00 40 09/09/19 18:00 76 17 90/70 (77) 95 NIV Bilevel 30.00 09/09/19 17:00 89 15 113/72 (86) 89 NIV Bilevel 30.00 09/09/19 16:00 37.2 09/09/19 16:00 Vapotherm 30.00 40 09/09/19 16:00 74 12 96/74 (81) 98 NIV Bilevel 30.00 09/09/19 15:00 73 23 116/67 (83) 99 NIV Bilevel 30.00 09/09/19 14:00 85 23 121/77 (92) 89 NIV Bilevel 30.00 09/09/19 13:28 74 09/09/19 13:00 78 13 112/76 (88) 78 NIV Bilevel 30.00 09/09/19 12:00 73 10 134/71 (92) 86 NIV Bilevel 30.00 09/09/19 12:00 Vapotherm 30.00 40 09/09/19 11:23 37.0 09/09/19 11:00 74 31 137/52 (80) 87 NIV Bilevel 30.00 09/09/19 10:00 71 31 96/79 (85) 87 NIV Bilevel 30.00 09/09/19 09:00 72 7 118/78 (91) 88 NIV Bilevel 30.00 09/09/19 08:00 63 30 121/76 (91) 90 NIV Bilevel 30.00 09/09/19 08:00 Vapotherm 30.00 21 09/09/19 07:16 96 Vapotherm 30.00 21 09/09/19 07:05 70 09/09/19 07:01 66 16 96 25.00 09/09/19 07:00 64 139/91 09/09/19 07:00 65 44 143/115 (124) 99 NIV Bilevel 30.00 09/09/19 06:39 64 146/112 09/09/19 06:00 57 8 134/86 (102) 97 NIV Bilevel 30.00 09/09/19 05:07 61 133/71 I & O 09/10/19 07:00 Intake Total 3640 ml Output Total 1175 ml Balance 2465 ml Height & Weight Height: 5'8.00" Weight: 156lbs. 2.0oz. 70.612701bp; 18.34 BMI Method:Stated General Appearance: No Apparent Distress, Anxious, Chronically ill, Cachetic HEENT: PERRL/EOMI, Normal ENT Inspection, Pharynx Normal, Moist Mucous Membra brian Neck: Full Range of Motion, Normal Inspection, Non Tender Respiratory: Chest Non Tender, Lungs Clear, Normal Breath Sounds, No Accessory Muscle Use, No Respiratory Distress Cardiovascular: Regular Rate, Rhythm, No Edema, No Gallop, No JVD, No Murmur, Normal Peripheral Pulses Capillary Refill: Less Than 3 Seconds Gastrointestinal: non tender, soft, hernia (large incisional hernia), other (ostomy right lower quadrant) Extremity: Normal Capillary Refill, Normal Inspection, Normal Range of Motion, Non Tender, No Calf Tenderness, No Pedal Edema Neurologic/Psychiatric: Alert, Oriented x3, No Motor/Sensory Deficits, Normal Mood/Affect Skin: Normal Color, Warm/Dry Lymphatic: No Adenopathy Results Lab Laboratory Tests 09/08/19 05:50 09/08/19 12:25 09/09/19 02:05 09/10/19 02:14 Assessment/Plan Assessment/Plan Acute respiratory failure -Pt is requiring high flow NC Severe Sepsis with shock -s/p IVF 30cc/kg - [facility]. -repeat mccullough cultures and LA ordered -COVID negative - D/C isolation Bacteremia and hypotension -Check echo -Levophed is now off. -D/C femoral central line UTI with sepsis - ANNELISE Aguirre DO Sep 10, 2019 05:12
[2019-09-10] MEDS ORDERED: SODIUM PHOSPHATE INJ 30 MM in NS (IVPB) 250 ML IV ONE (05:15)
[2019-09-10] MEDS: morphine ER 30 MG (MS CONTIN) TAB PO SCH ×4 (05:49→21:30)
[2019-09-10] MEDS: HYDROCORTISONE 100 MG/2 ML (Solu-CORTEF) VIAL IV SCH ×3 (05:49→21:00)
[2019-09-10] MEDS: MEROPENEM 500 MG in WATER (STERILE) FOR INJECTION 10 ML IV SCH ×4 (05:49→23:24)
--- NOTE | 2019-09-10 06:05 | NUR ---
FEMORAL CENTRAL LINE REMOVED BY THIS RN. PRESSURE HELD OVER SITE FOR 12MINUTES BY THIS RN. SITE COVERED WITH PRESSURE DRESSING MADE OF STERILE 4X4S AND OPSITE.
--- NOTE | 2019-09-10 06:14 | Diagnostic Imaging Report ---
INDICATION: Weakness. Comparison is made with prior examination from 09/08/2019 FINDINGS: The heart size is normal. There is some COPD. There is some scarring or atelectasis in the lung base. There is no pleural effusion or pneumothorax. Mediastinum is unremarkable. IMPRESSION: COPD with some scarring and/or atelectasis in the lung bases. Dictated by: Dictated on workstation # [id number]
--- NOTE | 2019-09-10 06:32 | Progress Note - Hospitalist ---
Subjective HPI/CC On Admission Date Seen by Provider: Sep 10, 2019 Time Seen by Provider: 09:30 CC: Pneumonia HPI: This is a 69yoWM clinic pt of Dr. Hernandez who presented with cough, SOB, hypoxia and temperature of 104. Pt was placed in the hospital. Started on Vanc and Zosyn, changed to Rocephin and since that time he is a Covid-19 rule out so we are waiting for that result. I did use PPE to see him. WC 13.8. Appetite has decreased and he lives at [facility]. We will DC Rocephin and start him back on Zosyn because the lungs are coarse and he is still running a fever and WC is elevated. Subjective/Events-last exam Pt O2 sat 83% on vapotherm Does not wish to have intubation Open for trial of biPAP Pt appears to be very end stage Will put in order for do not intubate Denies any significant other new issues Review of Systems General: Fatigue, Malaise Pulmonary: Dyspnea Neurological: Weakness Focused Exam Lactate Level 09/08/19 12:25: Lactic Acid Level 0.75 Objective Exam Vital Signs Vital Signs Date Time Temp Pulse Resp B/P (MAP) Pulse Ox O2 Delivery O2 Flow Rate FiO2 09/10/19 20:04 95 Vapotherm 30.00 40 09/10/19 19:28 37.2 09/10/19 18:00 60 106/81 (89) 09/10/19 17:00 14 Capillary Refill : Less Than 3 Seconds General Appearance: No Apparent Distress, Anxious, Chronically ill, Cachetic Respiratory: Chest Non Tender, Lungs Clear, Normal Breath Sounds, No Accessory Muscle Use, No Respiratory Distress, Decreased Breath Sounds Cardiovascular: Regular Rate, Rhythm, No Edema, No Gallop, No JVD, No Murmur, Normal Peripheral Pulses Extremity: Normal Capillary Refill, Normal Inspection, Normal Range of Motion, Non Tender, No Calf Tenderness, No Pedal Edema Neurologic/Psychiatric: Alert, Oriented x3, No Motor/Sensory Deficits, Normal Mood/Affect Results/Procedures Lab Laboratory Tests 09/10/19 02:14 Patient resulted labs reviewed. Assessment/Plan Assessment and Plan Assess & Plan/Chief Complaint Assessment: Septic shock due to gram negative bacteremia on Meropenem UTI on Meropenem and Vanc Presumed adrenal insufficiency Impending decompensation Fever Hypoxia Dehydration MS Chronic debility Colostomy status Hypoxia on vapotherm Plan: IV Meropenem and Vanc IV Steroids IVF Monitor closely Lovenox DC when OAC started home dose ICU transfer Patient wishes for do not intubate and open for trial of Bipap Diagnosis/Problems Diagnosis/Problems (1) Sepsis Status: Acute (2) Urinary tract infection Status: Acute (3) PUI (4) COPD (chronic obstructive pulmonary disease) Status: Acute (5) Wheelchair dependence Status: Chronic (6) Chronic pain Status: Chronic (7) Multiple sclerosis Status: Chronic (8) Atrial fibrillation Status: Chronic (9) Smoker Status: Chronic Clinical Quality Measures DVT/VTE Risk/Contraindication: Risk Factor Score Per Nursin RFS Level Per Nursing on Admit: 4+=Very High CORINE LU DO Sep 10, 2019 06:32
[2019-09-10] MEDS: PREGABALIN 75 MG (LYRICA) CAP PO SCH ×3 (08:27→21:03)
[2019-09-10] MEDS: MEGESTROL ACETATE 400 MG/10 ML (MEGACE) UDC PO SCH (08:27)
[2019-09-10] MEDS: MAGNESIUM OXIDE (MAG-OX)400 MG TAB PO SCH (08:27)
[2019-09-10] MEDS: APIXABAN 5 MG (ELIQUIS) TABLET PO SCH ×2 (08:27→20:59)
[2019-09-10] MEDS: guaiFENesin SYRUP 100 MG/5 ML 10 ML (ROBITUSSIN SF) PO SCH ×4 (08:27→21:02)
[2019-09-10] MEDS: FAMOTIDINE 20 MG (PEPCID) TABLET PO SCH ×2 (08:27→21:00)
[2019-09-10] MEDS: AMIODARONE 200 MG (CORDARONE) TAB PO SCH ×2 (08:27→21:00)
[2019-09-10] MEDS: LACTATED RINGERS 1,000 ML IV SCH ×3 (08:28→23:34)
[2019-09-10] MEDS: MULTIVIT W/MINERALS TAB (THERAGRAN M) PO SCH (08:28)
[2019-09-10] MEDS: FLUTICASONE NASAL SPRAY (FLONASE) 16 GM BTL NS SCH (08:29)
[2019-09-10] MEDS: NOREPINEPHRINE 4 MG/250 ML 250 ML IV SCH ×2 (08:41→20:58)
--- NOTE | 2019-09-10 08:51 | Diagnostic Imaging Report ---
PROCEDURE: US Gallbladder. TECHNIQUE: Multiple real-time grayscale images were obtained over the right upper quadrant in various projections. INDICATION: Elevated bilirubin. The liver is normal in size at 17.1 cm. No discrete liver mass is identified. The portal vein is patent and shows normal direction of flow. Gallbladder is dilated measuring 12.6 x 5.9 x 6.2 cm. There is moderate sludge throughout the gallbladder. Gallbladder wall is also thickened measuring 6 mm. There does appear to be some mild pericholecystic fluid present. Extra hepatic bile duct is dilated measuring 12 mm. In addition there is intrahepatic biliary ductal dilatation. No definite common duct stone is detected. The pancreas is obscured by overlying bowel gas. Aorta is obscured. IVC is patent. The right kidney contains several cysts, largest approximately 2.9 cm in size lower pole. No calculi or hydronephrosis is detected. IMPRESSION: 1. Gallbladder hydrops containing moderate amount of sludge as well as a wall thickening. Acalculous cholecystitis cannot be entirely excluded. There is also intrahepatic and extra hepatic biliary ductal dilatation. CT abdomen and pelvis may be useful for further evaluation. 2. Right renal cysts. Dictated by: Dictated on workstation # [id number]
--- NOTE | 2019-09-10 10:36 | Cardiology Progress Note ---
Cardiology SOAP Progress Note Subjective: Complain of shortness of breath. Objective: I&O/Vital Signs 09/09/19 09/09/19 09/09/19 09/10/19 23:00 23:54 23:56 00:00 Temp 37.5 Pulse 77 80 Resp 14 18 B/P (MAP) 133/76 (95) 109/73 (85) Pulse Ox 97 96 O2 Delivery Vapotherm Vapotherm Vapotherm O2 Flow Rate 30.00 30.00 30.00 40.00 40.00 FiO2 40 09/10/19 09/10/19 09/10/19 09/10/19 01:00 01:00 02:00 02:19 Pulse 70 72 66 Resp 11 13 B/P (MAP) 121/79 (93) 122/81 (95) Pulse Ox 93 93 O2 Delivery Vapotherm Vapotherm NIV Bilevel O2 Flow Rate 30.00 30.00 25.00 40.00 40.00 09/10/19 09/10/19 09/10/19 09/10/19 02:39 03:00 03:30 03:45 Pulse 72 84 Resp 16 8 B/P (MAP) 124/84 (97) Pulse Ox 95 96 O2 Delivery NIV Bilevel Vapotherm Vapotherm O2 Flow Rate 25.00 25.00 30.00 30.00 30.00 FiO2 40 09/10/19 09/10/19 09/10/19 09/10/19 03:45 04:00 05:00 06:00 Temp 37.3 Pulse 64 61 63 Resp 9 8 7 B/P (MAP) 125/80 (95) 123/71 (88) 134/77 (96) Pulse Ox 91 89 O2 Delivery Vapotherm Vapotherm Vapotherm O2 Flow Rate 30.00 30.00 30.00 30.00 30.00 30.00 09/10/19 09/10/19 09/10/19 09/10/19 06:48 07:00 07:00 08:00 Pulse 63 64 67 Resp 8 8 B/P (MAP) 131/79 (96) 123/82 (96) Pulse Ox 94 93 O2 Delivery Vapotherm Vapotherm Vapotherm O2 Flow Rate 30.00 30.00 30.00 30.00 30.00 FiO2 30 09/10/19 09/10/19 09/10/1920 08:00 08:41 09:00 10:00 Temp 36.6 Pulse 65 74 Resp 31 27 B/P (MAP) 95/75 130/69 (89) 137/62 (87) Pulse Ox 91 100 O2 Delivery Vapotherm Vapotherm O2 Flow Rate 30.00 30.00 30.00 30.00 09/10/19 00:00 Intake Total 2050 ml Output Total 575 ml Balance 1475 ml Weight (Pounds): 156 Weight (Ounces): 2.0 Weight (Calculated Kilograms): [id number] Constitutional: appears stated age, AAO x 3, apparent distress Respiratory: respiratory distress, chest is bilaterally symmetric, other (decreased breath sounds bilaterally.) Cardiovascular: regular rate-rhythm, S1 and S2; No diastolic murmur, No systolic murmur Gastrointestional: soft, audible bowel sounds; No spleenomegaly Extremities: normal range of motion, non-tender, normal inspection; No clubbing, No cyanosis; no lower extremity edema bilateral; No significant edema Neurologic/Psychiatric: no motor/sensory deficits, alert, normal mood/affect, oriented x 3, power is 5/5 both on sides Skin: normal color; No rash, No ulcerations Results/Procedures: Labs Laboratory Tests 09/10/19 02:14: White Blood Count 11.5H, Red Blood Count 3.91L, Hemoglobin 11.0L, Hematocrit 33L , Mean Corpuscular Volume 84, Mean Corpuscular Hemoglobin 28, Mean Corpuscular Hemoglobin Concent 33, Red Cell Distribution Width 17.3H, Platelet Count 101L, Mean Platelet Volume , Neutrophils (%) (Auto) 93H, Lymphocytes (%) (Auto) 3L, Monocytes (%) (Auto) 4, Eosinophils (%) (Auto) 0, Basophils (%) (Auto) 0, Neutrophils # (Auto) 10.7H, Lymphocytes # (Auto) 0.3L, Monocytes # (Auto) 0.5, Eosinophils # (Auto) 0.0, Basophils # (Auto) 0.0, Sodium Level 142, Potassium Level 4.0, Chloride Level 111H, Carbon Dioxide Level 21, Anion Gap 10, Blood Urea Nitrogen 28H, Creatinine 0.85, Estimat Glomerular Filtration Rate > 60, BUN/Creatinine Ratio 33, Glucose Level 114H, Calcium Level 8.2L, Corrected Calcium 9.4, Phosphorus Level 1.8L, Magnesium Level 1.8, Total Bilirubin 4.0H, Aspartate Amino Transf (AST/SGOT) 21, Alanine Aminotransferase (ALT/SGPT) 38, Alkaline Phosphatase 223H, Total Protein 4.8L, Albumin 2.5L Microbiology 09/08/19 Blood Culture - Preliminary, Resulted No growth 09/06/19 Urine Culture - Preliminary, Resulted Mixed Bacterial Kellen Staphylococcus epidermidis A/P: Assessment/Dx: Sepsis, septic shock, UTI sepsis, Acute respiratory failure, History of CAD, PCI, Paroxysmal atrial fibrillation, Active smoking Plan: Sepsis, septic shock, defer to the primary team. Aggressive IV fluid assess sedation and broad-spectrum antibiotics. On IV pressors. Bacteremia, transthoracic echocardiogram showed normal LV function with no significant valvular heart disease. Blood culture shows Klebsiella pneumoniae, which is rare in infective endocarditis and present in 1 percent of all infectiv e endocarditis patients. Defer to the primary team for advise. Acute respiratory failure, very likely pulmonary in origin. Defer to Dr. Whitley and the primary team. History of CAD, PCI, continue outpatient medical therapy. Not on aspirin or Plavix. Not on statin therapy. Paroxysmal atrial fibrillation, on amiodarone and Eliquis. Active smoking, smoking cessation was strongly recommended. COVID-19 negative. Thank you for your consultation. Please call me if you have any questions. Felecia Choi MD, FACP, FACC, FSCAI, FHRS, CCDS Interventional Cardiology Cardiac Electrophysiology Vascular Medicine and Endovascular Interventions Focused Exam Lactate Level 09/08/19 12:25: Lactic Acid Level 0.75 Angelica CHOI MD Sep 10, 2019 10:36
[2019-09-10] MEDS: VANCOMYCIN 1 GM/NS 250 ML IVPB IV SCH ×2 (12:10)
--- NOTE | 2019-09-10 14:05 | NUR ---
"RD ASSESSMENT PMHx: COPD; MS PT INTERACTION: Pt was awake and pleasant during nutrition assessment. Pt states current appetite not good, and had been this way for about 1mon. Note avg PO intake <25% x1d, per chart review. Pt states following a regular diet at home, and has no issues with chewing/swallowing food. Pt states no recent issues with nausea, vomiting, constipation, or diarrhea. Note last BM was 7/2, and pt currently on bowel regimen per chart review. Pt states no recent wt changes. Note recent 20# wt gain x3mon, per chart review. ABNORMAL NUTRITION-RELATED LAB VALUES LOW: Ca 8.2; phos 1.8; Pro 4.8; alb 2.5 HIGH: Cl 111; BUN 28; glu 114; bili 4.0; alkphos 223 Est. kcal needs: 3041-0629 kcal | 25-30 kcal/kg Est. Pro needs: 67-81 g Pro | 1.0-1.2 g Pro/kg PES STATEMENT: Inadequate oral intake (NI-2.1) related to loss of appetite as evidenced by pt interview | avg PO intake <25% x1d INTERVENTION: Continue with current diet order of Regular diet. Continue with current supplementation order of Ensure Enlive with meals TID, for increased kcal intake. Provides 350 kcal and 13 g Pro per serving. Encouraged pt to eat when able. Will continue to follow and reassess as pt needs, intake, and status change. MONITOR/EVALUATE: PO Intake; Plan of Care; Hydration Status; Weight Status; Lab Values Kala Asher, MS, RD, LD"
[2019-09-10] MEDS: TAMSULOSIN 0.4 MG (FLOMAX) CAP PO SCH (20:59)
[2019-09-10] MEDS: QUEtiapine 100 MG (SEROquel) TAB IMMEDIATE RELEASE PO SCH (20:59)
[2019-09-10] MEDS: ALPRAZolam 0.5 MG (XANAX) TAB PO SCH (21:00)
[2019-09-11] VITALS (11 sets, daily range): BP systolic 93–115; BP diastolic 61–85
[2019-09-11 03:03] LABS: BASOPHILS % (AUTO) 0 % (0-10); EOSINOPHILS % (AUTO) 0 % (0-10); HEMATOCRIT 32 % (40-54); HEMOGLOBIN 10.9 G/DL (13.3-17.7); LYMPHOCYTES # (AUTO) 0.3 X 10^3 (1.0-4.0); LYMPHOCYTES % (AUTO) 4 % (12-44); MEAN CORPUSCULAR HEMOGLOBIN 28 PG (25-34); MEAN CORPUSCULAR HGB CONC 34 G/DL (32-36); MEAN CORPUSCULAR VOLUME 84 FL (80-99); MONOCYTES # (AUTO) 0.6 X 10^3 (0.0-1.0); MONOCYTES % (AUTO) 7 % (0-12); NEUTROPHILS # (AUTO) 6.9 X 10^3 (1.8-7.8); NEUTROPHILS % (AUTO) 88 % (42-75); PLATELET COUNT 80 10^3/uL (130-400); RED CELL DISTRIBUTION WIDTH 17.4 % (10.0-14.5); WHITE BLOOD COUNT 7.8 10^3/uL (4.3-11.0)
[2019-09-11 03:13] LABS: ALBUMIN 2.4 GM/DL (3.2-4.5); CHLORIDE 111 MMOL/L (98-107); SODIUM 144 MMOL/L (135-145)
[2019-09-11 03:14] LABS: CALCIUM 8.1 MG/DL (8.5-10.1)
[2019-09-11 03:15] LABS: GLUCOSE 107 MG/DL (70-105); TOTAL PROTEIN 4.5 GM/DL (6.4-8.2)
[2019-09-11 03:16] LABS: CARBON DIOXIDE 25 MMOL/L (21-32)
[2019-09-11 03:19] LABS: ALKALINE PHOSPHATASE 196 U/L (40-136); CREATININE SERUM 0.84 MG/DL (0.60-1.30); GFR ESTIMATED > 60; PHOSPHORUS 3.3 MG/DL (2.3-4.7)
[2019-09-11 03:20] LABS: BUN/CREATININE RATIO 35
[2019-09-11 03:22] LABS: ALANINE AMINOTRANSFERASE 37 U/L (0-55); MAGNESIUM 1.7 MG/DL (1.6-2.4)
[2019-09-11] MEDS: KCL 20 MEQ TAB (K-DUR) PO SCH (06:07)
[2019-09-11] MEDS: morphine ER 30 MG (MS CONTIN) TAB PO SCH ×2 (06:07→14:02)
[2019-09-11] MEDS: POTASSIUM CL 10MEQ/50ML IVPB 50 ML IV SCH (06:07)
[2019-09-11] MEDS: MAGNESIUM 1 GM/100 ML IVPB 100 ML IV SCH (06:07)
[2019-09-11] MEDS: LACTATED RINGERS 1,000 ML IV SCH ×2 (06:21→14:02)
[2019-09-11] MEDS: MEROPENEM 500 MG in WATER (STERILE) FOR INJECTION 10 ML IV SCH ×2 (06:21→14:01)
[2019-09-11] MEDS: HYDROCORTISONE 100 MG/2 ML (Solu-CORTEF) VIAL IV SCH ×2 (06:21→14:01)
--- NOTE | 2019-09-11 06:28 | Progress Note - Hospitalist ---
Subjective HPI/CC On Admission CC: Pneumonia HPI: This is a 69yoWM clinic pt of Dr. Hernandez who presented with cough, SOB, hypoxia and temperature of 104. Pt was placed in the hospital. Started on Vanc and Zosyn, changed to Rocephin and since that time he is a Covid-19 rule out so we are waiting for that result. I did use PPE to see him. WC 13.8. Appetite has decreased and he lives at [facility] in [facility]. We will DC Rocephin and start him back on Zosyn because the lungs are coarse and he is still running a fever and WC is elevated. Focused Exam Lactate Level 09/08/19 12:25: Lactic Acid Level 0.75 Objective Exam Vital Signs Vital Signs Date Time Temp Pulse Resp B/P (MAP) Pulse Ox O2 Delivery O2 Flow Rate FiO2 09/11/19 09:00 93 28 93/61 (72) 95 Nasal Cannula 3.00 09/11/19 08:00 40 09/11/19 08:00 37.0 Capillary Refill : Less Than 3 Seconds Results/Procedures Lab Laboratory Tests 09/11/19 02:52 Patient resulted labs reviewed. Assessment/Plan Assessment and Plan Assess & Plan/Chief Complaint Assessment: Septic shock due to gram negative bacteremia on Meropenem UTI on Meropenem and Vanc Presumed adrenal insufficiency Impending decompensation Fever Hypoxia Dehydration MS Chronic debility Colostomy status Hypoxia on vapotherm Plan: IV Meropenem and Vanc IV Steroids IVF Monitor closely Lovenox DC when OAC started home dose ICU transfer Patient wishes for do not intubate and open for trial of Bipap Diagnosis/Problems Diagnosis/Problems (1) Sepsis Status: Acute (2) Urinary tract infection Status: Acute (3) PUI (4) COPD (chronic obstructive pulmonary disease) Status: Acute (5) Wheelchair dependence Status: Chronic (6) Chronic pain Status: Chronic (7) Multiple sclerosis Status: Chronic (8) Atrial fibrillation Status: Chronic (9) Smoker Status: Chronic Clinical Quality Measures DVT/VTE Risk/Contraindication: Risk Factor Score Per Nursin RFS Level Per Nursing on Admit: 4+=Very High CORINE LU DO Sep 11, 2019 06:28
--- NOTE | 2019-09-11 08:40 | Diagnostic Imaging Report ---
INDICATION: Lower respiratory infection. Portable chest 3:25 AM FINDINGS: Heart size and pulmonary vascularity are normal. There is some increased density at the lung bases causing some obscuration of the diaphragm. IMPRESSION: Bilateral basilar infiltrates and/or atelectasis. Dictated by: Dictated on workstation # [id number]
[2019-09-11] MEDS: MAGNESIUM OXIDE (MAG-OX)400 MG TAB PO SCH (09:18)
[2019-09-11] MEDS: AMIODARONE 200 MG (CORDARONE) TAB PO SCH (09:18)
[2019-09-11] MEDS: PREGABALIN 75 MG (LYRICA) CAP PO SCH ×2 (09:18→14:01)
[2019-09-11] MEDS: APIXABAN 5 MG (ELIQUIS) TABLET PO SCH (09:19)
[2019-09-11] MEDS: MEGESTROL ACETATE 400 MG/10 ML (MEGACE) UDC PO SCH (09:19)
[2019-09-11] MEDS: MULTIVIT W/MINERALS TAB (THERAGRAN M) PO SCH (09:19)
[2019-09-11] MEDS: FAMOTIDINE 20 MG (PEPCID) TABLET PO SCH (09:19)
[2019-09-11] MEDS: guaiFENesin SYRUP 100 MG/5 ML 10 ML (ROBITUSSIN SF) PO SCH ×2 (09:19→14:02)
--- NOTE | 2019-09-11 10:04 | Physical Therapy Evaluation ---
PT Evaluation-General Medical Diagnosis Admission Date Sep 07, 2019 at 01:17 Medical Diagnosis: weakness Onset Date: Sep 06, 2019 Therapy Diagnosis Therapy Diagnosis: debility/weakness Height/Weight Height (Feet): 5 Height (Inches): 8.00 Weight (Pounds): 156 Weight (Ounces): 2.0 Precautions Precautions/Isolations: Fall Prevention, Standard Precautions Weight Bear Status Right Lower Extremity: Right Non Weight Bearing Left Lower Extremity: Left Non Weight Bearing Referral Physician: Carmelita Reason for Referral: Evaluation/Treatment Medical History Pertinent Medical History: Alcoholism, COPD, Heart Failure, Renal Insufficiency Current History transfer to ICU secondary to decreased BP Reviewed History: Yes Social History Home: Correction Prior Prior Level of Function SCALE: Activities may be completed with or without assistive devices. 8-Otfwygbeky-pvbbyfx completes the activity by him/herself with no assistance from a helper. 5-Set-up or Clean-up Assistance-helper sets up or cleans up; patient completes activity. [place] assists only prior to or following the activity. 4-Supervision or Touching Assistance-helper provides verbal cues and/or touching/steadying and/or contact guard assistance as patient completes activity. Assistance may be provided throughout the activity or intermittently. 3-Partial/Moderate Assistance-helper does LESS THAN HALF the effort. [place] lifts, holds or supports trunk or limbs, but provides less than half the effort. 2-Substantial/Maximal Assistance-helper does MORE THAN HALF the effort. [place] lifts or holds trunk or limbs and provides more than half the effort. 6-Gsojxwvnd-trhxgn does ALL the effort. Patient does none of the effort to complete the activity. Or, the assistance of 2 or more helpers is required for the patient to complete the activity. If activity was not attempted, code reason: 7-Patient Refused. 9-Not Applicable-not attempted and the patient did not perform the activity before the current illness, exacerbation or injury. 10-Not Attempted due to Environmental Limitations-(lack of equipment, weather restraints, etc.). 88-Not Attempted due to Medical Conditions or Safety Concerns. Bed Mobility: 2 Transfers (B,C,W/C): 2 Gait: 9 Stairs: 9 Wheelchair Mobility: 3 Indoor Mobility (Ambulation): Not [place] Stairs: Not [place] Prior Devices Use: Manual wheelchair PT Evaluation-Current Subjective Patient much more alert and cooperative on this date. Agrees to PT. Pain Numeric Pain Scale: 5-Moderate Pain Location: Left Location Body Site: Knee Pain Description: Chronic Objective Patient Orientation: Person, Time, Situation Attachments: Oxygen, Frankel Catheter, IV ROM/Strength ROM Lower Extremities bilateral LE WFL Strength Lower Extremities 3-/5 grossly bilateral LE Integumentary/Posture Integumentary refer to nursing notes Bladder Incontinence: Frankel Cath Posture slightly kyphotic Neuromuscular (Tone, Coordination, Reflexes) diminished with all Sensory Vision: Functional Hearing: Functional Sensation Right Lower Extremit: Impaired Sensation Left Lower Extremity: Impaired Transfers Roll Left to Right (QC): 4 Lying to Sitting/Side of Bed(Q: 4 Sit to Stand (QC): 2 Chair/Ndq-gz-Cbgzu Xfer(QC): 2 Gait Does the Patient Walk?: No and Walking Goal NOT indicated Wheelchair Training Does the Pt Use a Wheelchair?: Yes Balance Sitting Static: Normal Sitting Dynamic: Fair Standing Static: Poor Standing Dynamic: Poor Assessment/Needs 69 y.o. male, will benefit from skilled PT to address functional strength and transfer training. Patient has improved from previous evaluation, however, remains limited with strength and safe transfer. Rehab Potential: Fair PT Housekeeper Nanny Goals Housekeeper Nanny Goals PT Alf Goals Time Frame: Sep 18, 2019 Roll Left & Right (QC): 5 Sit to Lying (QC): 5 Lying-Sitting on Side/Bed(QC): 5 Sit to Stand (QC): 3 Chair/Wrk-uk-Wiqgb Xfer(QC): 3 Does the Patient Walk: No and Walking Goal NOT indicated PT Plan Problem List Problem List: Activity Tolerance, Functional Strength, Safety, Balance, Transfer, Bed Mobility Treatment/Plan Treatment Plan: Continue Plan of Care Treatment Plan: Bed Mobility, Education, Functional Activity Brett, Functional Strength, Safety, Therapeutic Exercise, Transfers Treatment Duration: Sep 18, 2019 Frequency: 6 times per week Estimated Hrs Per Day: .25 hour per day Patient and/or Family Agrees t: Yes Discharge Recommendations Therapy Discharge Recommendati: Other, See Comments (longterm facility) Time/GCodes Time In: 945 Time Out: 956 Total Billed Treatment Time: 11 Total [facility] ABELARDO STOVALL PT Sep 11, 2019 10:04
--- NOTE | 2019-09-11 11:15 | Occupational Therapy Eval ---
OT Evaluation-General/PLF Medical Diagnosis Admission Date Sep 07, 2019 at 01:17 Medical Diagnosis: debility; septic shock Onset Date: Sep 06, 2019 Therapy Diagnosis Therapy Diagnosis: Decreased ADL stauts Height/Weight Height (Feet): 5 Height (Inches): 8.00 Weight (Pounds): 156 Weight (Ounces): 2.0 Precautions Precautions/Isolations: Standard Precautions Referral Physician: Carmelita Referral Reason: Activity Tolerance, Self Care, Evaluation/Treatment, S trengthening/ROM Medical History Pertinent Medical History: Alcoholism, COPD, Heart Failure, Renal Insufficiency Additional Medical History COPD, MS, arthritis, depression, colostomy Current History Pt admits with cough, SOB, hypoxia, UTI, septic shock with PNA. Reviewed History: Yes Social History Home: Assisted Living Entry Into Home: Level Entry ADL-Prior Level of Function SCALE: Activities may be completed with or without assistive devices. 3-Ytwdmcyrgk-ehbmorr completes the activity by him/herself with no assistance from a helper. 5-Set-up or Clean-up Assistance-helper sets up or cleans up; patient completes activity. [place] assists only prior to or following the activity. 4-Supervision or Touching Assistance-helper provides verbal cues and/or touching/steadying and/or contact guard assistance as patient completes activity. Assistance may be provided throughout the activity or intermittently. 3-Partial/Moderate Assistance-helper does LESS THAN HALF the effort. [place] lifts, holds or supports trunk or limbs, but provides less than half the effort. 2-Substantial/Maximal Assistance-helper does MORE THAN HALF the effort. [place] lifts or holds trunk or limbs and provides more than half the effort. 9-Mzeixethn-demhbu does ALL the effort. Patient does none of the effort to complete the activity. Or, the assistance of 2 or more helpers is required for the patient to complete the activity. If activity was not attempted, code reason: 7-Patient Refused. 9-Not Applicable-not attempted and the patient did not perform the activity before the current illness, exacerbation or injury. 10-Not Attempted due to Environmental Limitations-(lack of equipment, weather restraints, etc.). 88-Not Attempted due to Medical Conditions or Safety Concerns. ADL PLOF Comments Pt was min A- SBA with ADL tasks, use of w/c for mobility; pt states was able to toilet tx with mod I with use of gbs and tub/ tx with use of gb. Pt states received assist with LB dressing tasks. Self Care: Needed Some Help Functional Cognition: Independent DME/Equipment: Bath Chair, Grab Bars, Shower Occupation: retired. Drive Self: No OT Current Status Subjective Pt seen in recliner chair. Alert/ oriented to person, place. Pt states "some pain," though unable to localize. Pt states feels weak. Pt states confused on situation, pt educated on med dx. Pt nods head in understanding. Pt agrees to OT eval. Mental Status/Objective Patient Orientation: Person, Place, Time Attachments: Frankel Catheter, IV, Oxygen (3L) Current Hand Dominance: Left Upper Extremity ROM WFL BUE Upper Extremity Coordination Decreased coordination/ emergency medicine physician, requires assist with opening package on bottle. Upper Extremity Sensation decreased per pt (fingertips/ BLE) Upper Extremity Strength Decreased (3+/5) ADL-Treatment Eating (QC): 5 On/Off Footwear (QC): 2 Other Treatments Pt seen in chair. Educated on OT role. Pleasant and alert. Pt states PLOF/ completes MMT/ ROM screening. Pt states receives assist "at times" for ADLs with examples. Pt feels weak, expresses confusion on dx; education provided. Pt completes sock doffing/ donning with max A and LB washing with TD. Pt's BLE (dorsum of feet pitting edema), states some pain in LEs. Pt's LE's elevated with pillow to support. Pt educated on benefits of upright position and use of UE theraband ex for UE strengthening/ core endurance, etc. Pt completes 10 reps of 3/3 exercises with min cues with yellow theraband. HR increases from ~92-94 to ~98-99 BPM. Pt left with theraband and coffee. Pt requires assist with opening Ensure top due to decreased pinch strength/ coordination. Pt left in recliner with all needs met, call light in reach. Education OT Patient Education: Correct positioning, Exercise program, Home exercise program, Purpose of tx/functional activities Teaching Recipient: Patient Teaching Methods: Demonstration, Discussion Response to Teaching: Verbalize Understanding, Return Demonstration, Reinforcement Needed OT Seed Specialist Goals Assisted Goals Time Frame: Sep 18, 2019 Eating (QC): 5 Oral Hygiene (QC): 5 Toileting Hygiene (QC): 4 Shower/Bathe Self (QC): 3 Upper Body Dressing (QC): 6 Lower Body Dressing (QC): 3 On/Off Footwear (QC): 3 Additional Goals: 1-Demonstrate ADL Tasks, 2-Verbalize Understanding, 3- ImproveStrength/Brett 1=Demonstrate adherence to instructed precautions during ADL tasks. 2=Patient will verbalize/demonstrate understanding of assistive devices/modifications for ADL. 3=Patient will improve strength/tolerance for activity to enable patient to perform ADL's. OT Education/Plan Problem List/Assessment Assessment: Decreased Activ Tolerance, Decreased UE Strength, Dependent T ransfers, Impaired Bed Mobility, Impaired Coordination, Impaired Funct Balance, Impaired I ADL's, Impaired Self-Care Skills Discharge Recommendations Plan/Recommendations: Continue POC Therapy Discharge Recommendati: 24 Hour Supervision Equpiment Recommendations-D/C: Medicine Man, Dressing Stick Treatment Plan/Plan of Care Treatment,Training & Education: Yes Patient would benefit from OT for education, treatment and training to promote independence in ADL's, mobility, safety and/or upper extremity function for ADL's. Plan of Care: ADL Retraining, Functional Mobility, UE Funct Exercise/Act, W/C Management Training Treatment Duration: Sep 18, 2019 Frequency: 5 times per week Estimated Hrs Per Day: .25 hour per day Agreement: Yes Rehab Potential: Fair Time/GCodes Start Time: 10:16 Stop Time: 10:37 Total Time Billed (hr/min): 21 Billed Treatment Time 1, EVM (21) EDER PEDROZA OTR Sep 11, 2019 11:15
--- NOTE | 2019-09-11 11:44 | Cardiology Progress Note ---
Subjective Date Seen by Provider: Sep 11, 2019 Time Seen by Provider: 11:40 Subjective/Events-last exam Patient was seen at bedside, sitting comfortably, having mild shortness of breath Review of Systems General: No Chills, No Night Sweats; Fatigue, Malaise; No Appetite, No Other HEENT: No Head Aches, No Visual Changes, No Eye Pain, No Ear Pain, No Dysphasia, No Sinus Congestion, No Post Nasal Drip, No Sore Throat, No Other Pulmonary: Dyspnea; No Cough, No Pleuritic Chest Pain, No Other Cardiovascular: No: Chest Pain, Palpitations, Orthopnea, Paroxysmal Noc. Dyspnea, Edema, Lt Headedness, Other Focused Exam Lactate Level 09/08/19 12:25: Lactic Acid Level 0.75 Objective-Cardiology Exam Last Set of Vital Signs Vital Signs 09/11/19 09/11/19 08:00 09:00 Temp 37.0 Pulse 93 Resp 28 B/P (MAP) 93/61 (72) Pulse Ox 95 O2 Delivery Nasal Cannula O2 Flow Rate 3.00 FiO2 40 Capillary Refill : Less Than 3 Seconds I&O Intake and Output 09/11/19 00:00 Intake Total 2250 ml Output Total 1050 ml Balance 1200 ml Intake Oral 1250 ml IV Total 1000 ml Output Urine Total 825 ml Stool Total 225 ml # Bowel Movements 1 General: Alert, Oriented X3, Cooperative HEENT: Atraumatic, PERRLA Neck: Supple, No JVD, No Thyromegaly Lungs: Clear to Auscultation, Normal Air Movement Heart: Regular Rate, Normal S1, Normal S2, No Murmurs Abdomen: Normal Bowel Sounds, Soft, No Tenderness, No Hepatosplenomegaly, No Masses Extremities: No Clubbing, No Cyanosis, No Edema, Normal Pulses, No Tenderness/Swelling Skin: No Rashes, No Breakdown, No Significant Lesion Neuro: Normal Gait, Normal Speech, Strength at 5/5 X4 Ext, Normal Tone, S ensation Intact Psych/Mental Status: Mental Status NL, Mood NL Results Lab Laboratory Tests 09/11/19 02:52 A/P-Cardiology Admission Diagnosis Sepsis Acute respiratory failure Coronary artery disease Hypertension Assessment/Plan Sepsis, aged by primary care team and guest services assistant, better at this time, improving. Bacteremia, transthoracic echocardiogram showed normal LV function with no s ignificant valvular heart disease. Blood culture shows Klebsiella pneumoniae, which is rare in infective endocarditis and present in 1 percent of all infective endocarditis patients. Defer to the primary team for advise. Status post respiratory failure, better at this time. Continue to monitor History of CAD, PCI, continue outpatient medical therapy. Not on aspirin or Plavix. Not on statin therapy. Paroxysmal atrial fibrillation, on amiodarone and Eliquis. Active smoking, smoking cessation was strongly recommended. COVID-19 negative. Clinical Quality Measures DVT/VTE Risk/Contraindication: Risk Factor Score Per Nursin RFS Level Per Nursing on Admit: 4+=Very High DORCAS VELIZ MD Sep 11, 2019 11:43
[2019-09-11] MEDS: FLUTICASONE NASAL SPRAY (FLONASE) 16 GM BTL NS SCH (11:48)
[2019-09-11] MEDS: NOREPINEPHRINE 4 MG/250 ML 250 ML IV SCH (11:48)
[2019-09-11] MEDS ORDERED: TROUGH ORDER-PHARMACY XX NR (12:00)
--- NOTE | 2019-09-11 13:28 | Discharge Summary ---
Discharge Summary Hospital Course Was the Problem List Reviewed?: Yes Problems/Dx: (1) Sepsis Status: Acute (2) Urinary tract infection Status: Acute (3) PUI (4) COPD (chronic obstructive pulmonary disease) Status: Acute (5) Wheelchair dependence Status: Chronic (6) Chronic pain Status: Chronic (7) Multiple sclerosis Status: Chronic (8) Atrial fibrillation Status: Chronic (9) Smoker Status: Chronic Hospital Course Date of Admission: Sep 07, 2019 at 01:17 Admission Diagnosis : Family Physician/Provider: Feliz Hernandez MD Date of Discharge: 09/11/19 Discharge Diagnosis: Septic shock, UTI, MS, Severe and chronic debility, do not intubate Hospital Course: Patient had an uneventful hospital course although it was lengthy and remained in the ICU nearly the entire course but she did stabilize after septic shock treatment placed on broad-spectrum empiric antibiotics for ESBL and MRSA coverage but all blood cultures and urine cultures returned showing mccullough sensitivity so on day of transfer to [facility] to clear out bed for coronavirus patients at [facility] he was transitioned to single agent of Rocephin 1 g daily and will continue working on rehabilitation in order to return home to assisted living. Labs and Pending Lab Test: Laboratory Tests 09/11/19 02:52: White Blood Count 7.8, Red Blood Count 3.86L, Hemoglobin 10.9L, Hematocrit 32L, Mean Corpuscular Volume 84, Mean Corpuscular Hemoglobin 28, Mean Corpuscular Hemoglobin Concent 34, Red Cell Distribution Width 17.4H, Platelet Count 80L, Mean Platelet Volume , Neutrophils (%) (Auto) 88H, Lymphocytes (%) (Auto) 4L, Monocytes (%) (Auto) 7, Eosinophils (%) (Auto) 0, Basophils (%) (Auto) 0, Neutrophils # (Auto) 6.9, Lymphocytes # (Auto) 0.3L, Monocytes # (Auto) 0.6, Eosinophils # (Auto) 0.0, Basophils # (Auto) 0.0, Sodium Level 144, Potassium Level 4.0, Chloride Level 111H, Carbon Dioxide Level 25, Anion Gap 8, Blood Urea Nitrogen 29H, Creatinine 0.84, Estimat Glomerular Filtration Rate > 60, BUN/Creatinine Ratio 35, Glucose Level 107H, Calcium Level 8.1L, Corrected Calcium 9.4, Phosphorus Level 3.3, Magnesium Level 1.7, Total Bilirubin 6.0H, Aspartate Amino Transf (AST/SGOT) 20, Alanine Aminotransferase (ALT/SGPT) 37, A lkaline Phosphatase 196H, Total Protein 4.5L, Albumin 2.4L 09/11/19 12:14: Vancomycin Level Trough 13.7 Microbiology 09/09/19 Blood Culture - Preliminary, Resulted No growth 09/06/19 Urine Culture - Final, Complete Mixed Bacterial Kellen Staphylococcus epidermidis Staphylococcus epidermidis#2 Home Meds Active Reported Pro-Stat Sugar Free Liquid (Amino Acids/Protein Hydrolys) 887 Ml Liquid 30 Ml PO DAILY Pregabalin 225 Mg Capsule 225 Mg PO TID Citalopram HBr (Citalopram Hydrobromide) 10 Mg Tablet 10 Mg PO DAILY Magnesium (Magnesium Oxide) 400 Mg Tablet 400 Mg PO DAILY Guaifenesin 400 Mg Tablet 400 Mg PO QID Fluticasone Propionate 16 Gm [place].susp 2 Sprays NS DAILY Zinc (Zinc Gluconate) 30 Mg Tablet 30 Mg PO DAILY Multivitamins (Multivitamin) 1 Each Tablet 1 Tab PO DAILY Megestrol Acetate 400 Mg/10 Ml Oral.susp 10 Ml PO DAILY [Alcohol/Vinegar] 4 Drops EACH EAR PRN PRN ALCOHOL/WHITE VINEGAR EQUAL PARTS Nystatin-Triamcinolone Ointm (Nystatin/Triamcinolone) 15 Gm Oint TP BID PRN Ibu (Ibuprofen) 400 Mg Tablet 400 Mg PO TID PRN Tylenol Extra Strength (Acetaminophen) 500 Mg Tablet 500 Mg PO Q6H PRN Tea Tree (Tea Tree Oil) 1 Ml Oil 4 Drop EACH EAR BID PRN Zofran (Ondansetron HCl) 4 Mg Tab 4 Mg PO Q4H PRN Iprat-Albut 0.5-3(2.5) mg/3 ml (Ipratropium/Albuterol Sulfate) 3 Ml Ampul.neb 3 Ml NEB Q6H PRN Alprazolam 0.5 Mg Tablet 0.5 Mg PO HS Morphine Sulfate ER (Morphine Sulfate) 30 Mg Tablet.er 30 Mg PO 0600,1400,2200 Flomax (Tamsulosin HCl) 0.4 Mg Cap 0.4 Mg PO HS Eliquis (Apixaban) 5 Mg Tablet 5 Mg PO BID Quetiapine Fumarate 50 Mg Tablet 50 Mg PO HS Citalopram HBr (Citalopram Hydrobromide) 20 Mg Tablet 20 Mg PO DAILY Famotidine 20 Mg Tablet 20 Mg PO BID Amiodarone HCl 200 Mg Tablet 200 Mg PO Q12H Tramadol HCl 50 Mg Tablet 100 Mg PO Q6H PRN Assessment/Pt Instructions Transfer to [facility] for Valenzuela virus issue at [facility] Discharge Planning: <30 minutes discharge planning Discharge Instructions Discharge Diet: No Restrictions Discharge Physical Examination Vital Signs Vital Signs Date Time Temp Pulse Resp B/P (MAP) Pulse Ox O2 Delivery O2 Flow Rate FiO2 09/11/19 12:00 93 13 110/67 (81) 98 Nasal Cannula 3.00 09/11/19 12:00 37.0 09/11/19 08:00 40 General Appearance: Chronically ill, Cachetic, Other (extremely debilitated) Respiratory: Chest Non Tender, Lungs Clear, Normal Breath Sounds, No Accessory Muscle Use, No Respiratory Distress Cardiovascular: Regular Rate, Rhythm, No Edema, No Gallop, No JVD, No Murmur, Normal Peripheral Pulses Neurologic/Psychiatric: Alert, Oriented x3, No Motor/Sensory Deficits, Normal Mood/Affect, Other (confused) Allergies: Coded Allergies: No Known Drug Allergies (Unverified , 05/24/19) Discharge Summary Date of Admission Sep 07, 2019 at 01:17 Date of Discharge Discharge Date: Sep 11, 2019 Admission Diagnosis Assessment: Fever Hypoxia Dehydration MS Chronic debility Plan: Abx empiric IVF Monitor closely Lovenox DC when OAC started home dose PT OT Discharge Diagnosis Assessment: Septic shock due to gram negative bacteremia on Meropenem UTI on Meropenem and Vanc Presumed adrenal insufficiency Impending decompensation Fever Hypoxia Dehydration MS Chronic debility Colostomy status Hypoxia on vapotherm Plan: IV Meropenem and Vanc IV Steroids IVF Monitor closely Lovenox DC when OAC started home dose ICU transfer Patient wishes for do not intubate and open for trial of Bipap (1) Sepsis Status: Acute (2) Urinary tract infection Status: Acute (3) PUI (4) COPD (chronic obstructive pulmonary disease) Status: Acute (5) Wheelchair dependence Status: Chronic (6) Chronic pain Status: Chronic (7) Multiple sclerosis Status: Chronic (8) Atrial fibrillation Status: Chronic (9) Smoker Status: Chronic Clinical Quality Measures DVT/VTE Risk/Contraindication: Risk Factor Score Per Nursin RFS Level Per Nursing on Admit: 4+=Very High LU,CORINE DO Sep 11, 2019 13:27
--- NOTE | 2019-09-11 13:36 | NUR ---
CM/SS: Visited with pt as to his transfer to [facility] to fee up beds due to COVID 19. Pt is ok and reports that he feels better. Pt is is informed by the worker that she will notify [facility] as well as the [employer] on Saturday as to his plan to return to [facility] in [place] as they have agreed to take pt back. He verbalizes understanding. Telephone call to [facility] Paginator - Em of pt being transferred to [facility]. Room number known. She thanks this worker for calling.
[2019-09-11] MEDS: VANCOMYCIN 1 GM/NS 250 ML IVPB IV SCH ×2 (14:01)
--- NOTE | 2019-09-14 11:53 | NUR ---
CM/SS: Telephone call to Cate Director Advanced at [facility] to update her on the status of the pt and the previous discharge plan needs.
== END 2019-09-11 16:12 | disposition short-term general hospital (02) | DRG 871 ==
LOC: EDUNIT# 22:07 → ER FS 22:10 → 4TH 09-07 01:17 → ICU 09-08 09:29
PROVIDERS: ADMIT Internal Medicine; ATTEND Internal Medicine
PROC: 02HV33Z Insertion of Infusion Device into Superior Vena Cava, Percutaneous Approach (ICD-10-PCS; principal; 2019-09-08)
DX: A41.89 Other specified sepsis (principal); R65.21 Severe sepsis with septic shock; J96.00 Acute respiratory failure, unspecified whether with hypoxia or hypercapnia; N39.0 Urinary tract infection, site not specified; R64 Cachexia; E27.40 Unspecified adrenocortical insufficiency; I48.20 Chronic atrial fibrillation, unspecified; E86.0 Dehydration; G35 Multiple sclerosis; J43.9 Emphysema, unspecified; I50.9 Heart failure, unspecified; N28.9 Disorder of kidney and ureter, unspecified; F17.210 Nicotine dependence, cigarettes, uncomplicated; K43.2 Incisional hernia without obstruction or gangrene; M19.91 Primary osteoarthritis, unspecified site; G89.29 Other chronic pain; I48.0 Paroxysmal atrial fibrillation; F32.9 Major depressive disorder, single episode, unspecified; F03.90 Unspecified dementia, unspecified severity, without behavioral disturbance, psychotic disturbance, mood disturbance, and anxiety; Z20.828 Contact with and (suspected) exposure to other viral communicable diseases; Z93.3 Colostomy status; Z99.3 Dependence on wheelchair
CPT/HCPCS: 36415; 71045; 76705; 80053; 80202; 81000; 82805; 83605; 83735; 84100; 84145; 84484; 85007; 85025; 85027; 86769; 87040; 87077; 87088; 87186; 87635; 93005; 93306; 94660; 96361; 96365; 96367

== ENCOUNTER → 2019-09-12 | Outpatient (CLI) | payer OTHER, MEDICARE, MEDICAID ==
[~2019-09-12] MED LIST changes: +AMIN887L16 PO; +PREG225C7 PO
[2019-09-12 07:57] LABS: ALBUMIN 2.1 GM/DL (3.2-4.5); CHLORIDE 112 MMOL/L (98-107); POTASSIUM 3.5 MMOL/L (3.6-5.0); SODIUM 144 MMOL/L (135-145)
[2019-09-12 07:58] LABS: CALCIUM 7.3 MG/DL (8.5-10.1)
[2019-09-12 07:59] LABS: GLUCOSE 115 MG/DL (70-105)
[2019-09-12 08:00] LABS: TOTAL PROTEIN 3.5 GM/DL (6.4-8.2)
[2019-09-12 08:01] LABS: BILIRUBIN,TOTAL 9.9 MG/DL (0.1-1.0); CARBON DIOXIDE 24 MMOL/L (21-32)
[2019-09-12 08:03] LABS: ALKALINE PHOSPHATASE 190 U/L (40-136); CREATININE SERUM 0.87 MG/DL (0.60-1.30); GFR ESTIMATED > 60
[2019-09-12 08:04] LABS: BUN/CREATININE RATIO 36
[2019-09-12 08:06] LABS: ALANINE AMINOTRANSFERASE 41 U/L (0-55)
== END ==
LOC: LABNPT 07:45
PROVIDERS: ATTEND Internal Medicine
DX: Z01.89 Encounter for other specified special examinations (principal)
CPT/HCPCS: 80053

== ENCOUNTER → 2019-09-13 | Outpatient (CLI) | payer OTHER, MEDICARE, MEDICAID ==
[2019-09-13 09:29] LABS: ALANINE AMINOTRANSFERASE 30 U/L (0-55); ALBUMIN 1.9 GM/DL (3.2-4.5); ALKALINE PHOSPHATASE 133 U/L (40-136); BILIRUBIN,TOTAL 6.3 MG/DL (0.1-1.0); BUN/CREATININE RATIO 31; CALCIUM 7.4 MG/DL (8.5-10.1); CARBON DIOXIDE 25 MMOL/L (21-32); CHLORIDE 111 MMOL/L (98-107); GFR ESTIMATED > 60; GLUCOSE 114 MG/DL (70-105); POTASSIUM 3.1 MMOL/L (3.6-5.0); SODIUM 143 MMOL/L (135-145); TOTAL PROTEIN 3.9 GM/DL (6.4-8.2)
== END ==
LOC: LABNPT 09:10
PROVIDERS: ATTEND Internal Medicine
DX: Z01.89 Encounter for other specified special examinations (principal)
CPT/HCPCS: 80053

== ENCOUNTER → 2019-09-25 | Outpatient (CLI) | payer MEDICARE, MEDICAID | LOC: LAB FS 15:16 | PROVIDERS: ATTEND Pediatrics | DX: F32.9 Major depressive disorder, single episode, unspecified (principal); G35 Multiple sclerosis; J44.9 Chronic obstructive pulmonary disease, unspecified; I49.9 Cardiac arrhythmia, unspecified; K43.9 Ventral hernia without obstruction or gangrene; K94.00 Colostomy complication, unspecified; Z20.828 Contact with and (suspected) exposure to other viral communicable diseases | CPT/HCPCS: 87635 ==

== ENCOUNTER → 2019-09-27 | Outpatient (CLI) | payer MEDICARE, MEDICAID ==
[2019-09-27 18:27] LABS: CLARITY,URINE CLOUDY; COLOR,URINE YELLOW; GLUCOSE, URINE (UA) NEGATIVE (NEGATIVE); KETONES,URINE NEGATIVE (NEGATIVE); NITRITE,URINE POSITIVE (NEGATIVE); PH,URINE 6.5 (5-9); PROTEIN,URINE 1+ (NEGATIVE)
[2019-09-27 18:28] LABS: BACTERIA,URINE TRACE /HPF; BILIRUBIN,URINE 1+ (NEGATIVE); LEUKOCYTE ESTERASE ,URINE 3+ (NEGATIVE); WBC,URINE 50-100 /HPF
[2019-09-27 18:29] LABS: YEAST,URINE FEW /HPF
== END ==
LOC: LAB FS 18:03
PROVIDERS: ATTEND Pediatrics
DX: R39.15 Urgency of urination (principal); R82.998 Other abnormal findings in urine; R39.14 Feeling of incomplete bladder emptying
CPT/HCPCS: 81000; 87088

== ENCOUNTER → 2019-12-10 | Outpatient (CLI) | payer MEDICARE, MEDICAID ==
[2019-12-10 16:57] LABS: BACTERIA,URINE NEGATIVE /HPF; BILIRUBIN,URINE NEGATIVE (NEGATIVE); CLARITY,URINE CLEAR; COLOR,URINE YELLOW; GLUCOSE, URINE (UA) NEGATIVE (NEGATIVE); KETONES,URINE NEGATIVE (NEGATIVE); LEUKOCYTE ESTERASE ,URINE NEGATIVE (NEGATIVE); NITRITE,URINE NEGATIVE (NEGATIVE); PROTEIN,URINE 2+ (NEGATIVE); SQUAMOUS EPITHELIAL CELL,UR 0-2 /HPF; WBC,URINE RARE /HPF
== END ==
LOC: LAB FS 16:45
PROVIDERS: ATTEND Pediatrics
DX: N39.0 Urinary tract infection, site not specified (principal)
CPT/HCPCS: 81000

== ENCOUNTER 2020-01-08 11:00 | Emergency (ER) | payer MEDICARE, MEDICAID ==
[~2020-01-08 11:00] MED LIST changes: -AMIO200T4 PO; +AMIO200T6 PO
--- NOTE | 2020-01-08 11:13 | ED Cough/URI ---
General Chief Complaint: Respiratory Problems Stated Complaint: RESP PROBLEM History of Present Illness Date Seen by Provider: Jan 08, 2020 Time Seen by Provider: 11:13 Initial Comments 69-year-old male presents with some wheezing, decreased oxygen. Patient has known COPD and is normally on 3 L. Patient is known coronavirus positive. He tested +10 days ago. No reports of any fevers or chills. [facility] a [facility] and they report that his oxygen was low. When EMS arrived patient had received one albuterol by the prison. They gave him a DuoNeb. His oxygen saturations on 6 L was at 100%. Upon arrival to the emergency room patient is doing significantly better with oxygen saturations at 87-88% on room air. Patient was placed on 2 L and his oxygen is in the mid 90s. Allergies and Home Medications Allergies Coded Allergies: No Known Drug Allergies (Unverified , 05/24/19) Home Medications Acetaminophen 500 Mg Tablet, 500 MG PO Q6H PRN for PAIN-MILD OR TEMPATURE, (Reported) Alprazolam 0.5 Mg Tablet, 0.5 MG PO HS, (Reported) Amino Acids/Protein Hydrolys 887 Ml Liquid, 30 ML PO DAILY, (Reported) Amiodarone HCl 200 Mg Tablet, 200 MG PO Q12H, (Reported) Apixaban 5 Mg Tablet, 5 MG PO BID, (Reported) Citalopram Hydrobromide 20 Mg Tablet, 20 MG PO DAILY, (Reported) Citalopram Hydrobromide 10 Mg Tablet, 10 MG PO DAILY, (Reported) Famotidine 20 Mg Tablet, 20 MG PO BID, (Reported) Fluticasone Propionate 16 Gm [place].susp, 2 SPRAYS NS DAILY, (Reported) Guaifenesin 400 Mg Tablet, 400 MG PO QID, (Reported) Ibuprofen 400 Mg Tablet, 400 MG PO TID PRN for PAIN-MILD, (Reported) Ipratropium/Albuterol Sulfate 3 Ml Ampul.neb, 3 ML NEB Q6H PRN for SHORTNESS OF BREATH, (Reported) Magnesium Oxide 400 Mg Tablet, 400 MG PO DAILY, (Reported) Megestrol Acetate 400 Mg/10 Ml Oral.susp, 10 ML PO DAILY, (Reported) Morphine Sulfate 30 Mg Tablet.er, 30 MG PO 0600,1400,2200, (Reported) Multivitamin 1 Each Tablet, 1 TAB PO DAILY, (Reported) Nystatin/Triamcinolone 15 Gm Oint, TP BID PRN for STOMA, (Reported) Ondansetron HCl 4 Mg Tab, 4 MG PO Q4H PRN for NAUSEA/VOMITING-1ST LINE, (Reported) Pregabalin 225 Mg Capsule, 225 MG PO TID, (Reported) Quetiapine Fumarate 50 Mg Tablet, 50 MG PO HS, (Reported) Tamsulosin HCl 0.4 Mg Cap, 0.4 MG PO HS, (Reported) Tea Tree Oil 1 Ml Oil, 4 DROP EACH EAR BID PRN for EAR, (Reported) Tramadol HCl 50 Mg Tablet, 100 MG PO Q6H PRN for PAIN-MODERATE, (Reported) Zinc Gluconate 30 Mg Tablet, 30 MG PO DAILY, (Reported) [Alcohol/Vinegar] , 4 DROPS EACH EAR PRN PRN for EAR PAIN, (Reported) ALCOHOL/WHITE VINEGAR EQUAL PARTS Patient Home Medication List Home Medication List Reviewed: Yes Review of Systems Review of Systems Constitutional: No chills, No fever Respiratory: cough, short of breath, wheezing Cardiovascular: No chest pain, No palpitations Genitourinary: no symptoms reported Musculoskeletal: no symptoms reported Skin: no symptoms reported Psychiatric/Neurological: No Symptoms Reported Hematologic/Lymphatic: No Symptoms Reported Past Tpmnarh-Yynbla-Pplqhz Hx Past Med/Social Hx: Reviewed Nursing Past Med/Soc Hx Patient Social History Alcohol Beverage of Choice: Beer Type Used: Cigarettes 2nd Hand Smoke Exposure: No Recent Hopitalizations: No Immunizations Up To Date Date of Pneumonia Vaccine: Dec 09, 2017 Date of Influenza Vaccine: Dec 09, 2017 Seasonal Allergies Seasonal Allergies: No Past Medical History Surgeries: Yes (Colostomy) Respiratory: Yes COPD, Emphysema Cardiac: Yes (CHF) Irregular Heartbeat Neurological: Yes Multiple Sclerosis Genitourinary: Yes (renal insufficiency) Gastrointestinal: Yes (Colostomy; ventral hernia) Musculoskeletal: Yes Arthritis Endocrine: No HEENT: No Cancer: No Psychosocial: Yes Depression Integumentary: No Blood Disorders: No Family Medical History FH: CHF (congestive heart failure) 19 FATHER, , Age:70, Onset:60 years & older No Pertinent Family Hx Physical Exam Vital Signs - First Documented 01/08/20 11:07 Temp 36.8 Pulse 81 Resp 18 B/P (MAP) 107/70 (82) Pulse Ox 95 O2 Delivery Nasal Cannula O2 Flow Rate 2.00 Capillary Refill : Height: 5'8.00" Weight: 156lbs. 2.0oz. [id number]; 18.34 BMI Method:Stated General Appearance: no apparent distress, cachetic HEENT: PERRL/EOMI Neck: full range of motion Respiratory: decreased breath sounds (mild diffuse), wheezing (minimal) Cardiovascular: normal peripheral pulses, regular rate, rhythm Gastrointestinal: non tender, soft Neurologic/Psychiatric: no motor/sensory deficits, normal mood/affect Skin: normal color, warm/dry Procedures/Interventions Date of ETT Placement: Sep 03, 2018 Time of ETT Placement: 1032 Progress/Results/Core Measures Suspected Sepsis SIRS Temperature: Pulse: Respiratory Rate: Laboratory Tests 01/08/20 11:30: White Blood Count 6.6 Blood Pressure / Mean: Laboratory Tests 01/08/20 11:30: Creatinine 1.67H, Platelet Count 157, Total Bilirubin 0.5 Results/Orders Lab Results Laboratory Tests Test 01/08/20 11:30 Range/Units White Blood Count 6.6 4.3-11.0 10^3/uL Red Blood Count 4.73 4.35-5.85 10^6/uL Hemoglobin 14.0 13.3-17.7 G/DL Hematocrit 44 40-54 % Mean Corpuscular Volume 92 80-99 FL Mean Corpuscular Hemoglobin 30 25-34 PG Mean Corpuscular Hemoglobin Concent 32 32-36 G/DL Red Cell Distribution Width 15.0 H 10.0-14.5 % Platelet Count 157 130-400 10^3/uL Mean Platelet Volume 12.0 H 7.4-10.4 FL Immature Granulocyte % (Auto) 1 % Neutrophils (%) (Auto) 71 42-75 % Lymphocytes (%) (Auto) 20 12-44 % Monocytes (%) (Auto) 6 0-12 % Eosinophils (%) (Auto) 1 0-10 % Basophils (%) (Auto) 1 0-10 % Neutrophils # (Auto) 4.7 1.8-7.8 X 10^3 Lymphocytes # (Auto) 1.3 1.0-4.0 X 10^3 Monocytes # (Auto) 0.4 0.0-1.0 X 10^3 Eosinophils # (Auto) 0.1 0.0-0.3 10^3/uL Basophils # (Auto) 0.0 0.0-0.1 10^3/uL Immature Granulocyte # (Auto) 0.1 0.0-0.1 10^3/uL Sodium Level 141 135-145 MMOL/L Potassium Level 4.1 3.6-5.0 MMOL/L Chloride Level 101 98-107 MMOL/L Carbon Dioxide Level 30 21-32 MMOL/L Anion Gap 10 5-14 MMOL/L Blood Urea Nitrogen 21 H 7-18 MG/DL Creatinine 1.67 H 0.60-1.30 MG/DL Estimat Glomerular Filtration Rate 41 BUN/Creatinine Ratio 13 Glucose Level 88 70-105 MG/DL Calcium Level 8.9 8.5-10.1 MG/DL Corrected Calcium 9.4 8.5-10.1 MG/DL Total Bilirubin 0.5 0.1-1.0 MG/DL Aspartate Amino Transf (AST/SGOT) 22 5-34 U/L Alanine Aminotransferase (ALT/SGPT) 18 0-55 U/L Alkaline Phosphatase 117 40-136 U/L C-Reactive Protein 12.16 H <0.50 MG/DL Total Protein 6.5 6.4-8.2 GM/DL Albumin 3.4 3.2-4.5 GM/DL My Orders Orders - SOMMER,STEFF L DO Chest 1 View Ap/Pa Only (01/08/20 11:13) Cbc With Automated Diff (01/08/20 11:13) Crp Fs (01/08/20 11:13) Dexamethasone Injection (Decadron Injec (01/08/20 11:15) Comprehensive Metabolic Panel (01/08/20 11:24) Medications Given in ED Current Medications Medications Dose Ordered Sig/Ignacio Route Start Time Stop Time Status Last Admin Dose Admin Dexamethasone Sodium Phosphate 10 mg ONCE ONCE IV 01/08/20 11:15 01/08/20 11:16 DC 01/08/20 11:44 10 MG Vital Signs/I&O 01/08/20 11:07 Temp 36.8 Pulse 81 Resp 18 B/P (MAP) 107/70 (82) Pulse Ox 95 O2 Delivery Nasal Cannula O2 Flow Rate 2.00 Capillary Refill : Progress Note : Time: 12:26 Progress Note Patient with no acute findings on x-ray. He does have an CRP likely due to his COVID diagnoses but no elevated white count. Patient with known COPD. Following treatment his oxygen is in the upper 90s to 100 on 2 L. Patient is normally on 3 L at the prison. He will be discharged back to the prison in stable condition Diagnostic Imaging Diagonstic Imaging: Xray Plain Films/CT/US/NM/MRI: chest Comments [facility]. [place], [place] NAME: TRISTAN MESSINA [facility] REC#: [id number] PT STATUS: REG ER : 1950 PHYSICIAN: STEFF SOMMER DO ADMIT DATE: 01/08/20/ER FS Draft Date of Exam:01/08/20 CHEST 1 VIEW AP/PA ONLY INDICATION: Shortness of air. COMPARISON: 09/11/2019. FINDINGS: Single frontal radiographic view of the chest was obtained and demonstrates diffuse coarse interstitial lung markings superimposed on background of hyperlucent appearance to the lungs. Findings appear to be a chronic change when compared to prior exams and are likely on the basis of underlying emphysematous disease. There is no focal consolidation, large effusion, nor pneumothorax on today's study. Cardiac silhouette and pulmonary vasculature are within normal limits. Osseous structures show no gross acute abnormalities. IMPRESSION: 1. Chronic emphysematous disease of the lungs, but no definite acute cardiopulmonary process. Departure Impression Primary Impression: COPD (chronic obstructive pulmonary disease) Qualified Codes: J44.0 - Chronic obstructive pulmonary disease with (acute) lower respiratory infection Additional Impression: COVID-19 Disposition: 01 HOME, SELF-CARE Condition: Stable Departure-Patient Inst. Referrals: ROCHELLE VASQUEZ MD (PCP/Family) Primary Care Physician Patient Instructions: Acute Bronchitis, Adult (DC), COVID19 Add. Discharge Instructions: Follow-up with primary care provider next week for recheck of today symptoms All discharge instructions reviewed with patient and/or family. Voiced understanding. Scripts Doxycycline Hyclate (Doxycycline Hyclate) 100 Mg Tablet 100 MG PO BID, #20 TAB 0 Refills Prov: STEFF SOMMER DO 01/08/20 Prednisone (Prednisone) 20 Mg Tab 40 MG PO DAILY, #6 TAB 0 Refills Prov: STEFF SOMMER DO 01/08/20 STEFF SOMMER DO Jan 08, 2020 11:13
--- NOTE | 2020-01-08 11:31 | Diagnostic Imaging Report ---
INDICATION: Shortness of air. COMPARISON: 09/11/2019. FINDINGS: Single frontal radiographic view of the chest was obtained and demonstrates diffuse coarse interstitial lung markings superimposed on background of hyperlucent appearance to the lungs. Findings appear to be a chronic change when compared to prior exams and are likely on the basis of underlying emphysematous disease. There is no focal consolidation, large effusion, nor pneumothorax on today's study. Cardiac silhouette and pulmonary vasculature are within normal limits. Osseous structures show no gross acute abnormalities. IMPRESSION: 1. Chronic emphysematous disease of the lungs, but no definite acute cardiopulmonary process. Dictated by: Dictated on workstation # [id number]
[2020-01-08 12:03] LABS: HEMATOCRIT 44 % (40-54); MEAN CORPUSCULAR HEMOGLOBIN 30 PG (25-34); MEAN CORPUSCULAR VOLUME 92 FL (80-99); WHITE BLOOD COUNT 6.6 10^3/uL (4.3-11.0)
[2020-01-08 12:04] LABS: BASOPHILS % (AUTO) 1 % (0-10); EOSINOPHILS # (AUTO) 0.1 10^3/uL (0.0-0.3); EOSINOPHILS % (AUTO) 1 % (0-10); LYMPHOCYTES # (AUTO) 1.3 X 10^3 (1.0-4.0); LYMPHOCYTES % (AUTO) 20 % (12-44); MEAN CORPUSCULAR HGB CONC 32 G/DL (32-36); MONOCYTES # (AUTO) 0.4 X 10^3 (0.0-1.0); MONOCYTES % (AUTO) 6 % (0-12); NEUTROPHILS # (AUTO) 4.7 X 10^3 (1.8-7.8); NEUTROPHILS % (AUTO) 71 % (42-75); PLATELET COUNT 157 10^3/uL (130-400)
[2020-01-08 12:18] LABS: ALBUMIN 3.4 GM/DL (3.2-4.5); BILIRUBIN,TOTAL 0.5 MG/DL (0.1-1.0); CALCIUM 8.9 MG/DL (8.5-10.1); CREATININE SERUM 1.67 MG/DL (0.60-1.30); POTASSIUM 4.1 MMOL/L (3.6-5.0); TOTAL PROTEIN 6.5 GM/DL (6.4-8.2)
[2020-01-08] MEDS ORDERED: PRD20T PO (12:25)
[2020-01-08] MEDS ORDERED: DOXY100T2 PO (12:25)
[2020-01-08 13:06] VITALS: BP 148/87
== END 2020-01-08 13:06 | disposition home or self-care (01) ==
LOC: EDUNIT# 11:00 → ER FS 11:02
DX: U07.1 COVID-19 (principal); J44.9 Chronic obstructive pulmonary disease, unspecified; F32.9 Major depressive disorder, single episode, unspecified; Z82.49 Family history of ischemic heart disease and other diseases of the circulatory system; Z79.01 Long term (current) use of anticoagulants
CPT/HCPCS: 36415; 71045; 80053; 85025; 86141

== ENCOUNTER 2020-01-09 19:43 | Emergency (ER) | payer MEDICARE, MEDICAID ==
[~2020-01-09] VITALS: Ht 172.7 cm; Wt 70.8 kg
[~2020-01-09 19:43] MED LIST changes: +DOXY100T2 PO
[2020-01-09] MEDS ORDERED: NS IV 500 ML 500 ML IV ONE (20:03)
[2020-01-09 20:14] LABS: HEMATOCRIT 46 % (40-54); HEMOGLOBIN 14.9 G/DL (13.3-17.7); MEAN CORPUSCULAR HEMOGLOBIN 29 PG (25-34); MEAN CORPUSCULAR HGB CONC 33 G/DL (32-36); MEAN CORPUSCULAR VOLUME 90 FL (80-99); WHITE BLOOD COUNT 12.7 10^3/uL (4.3-11.0)
[2020-01-09 20:15] LABS: BASOPHILS % (AUTO) 0 % (0-10); EOSINOPHILS % (AUTO) 0 % (0-10); LYMPHOCYTES # (AUTO) 0.6 X 10^3 (1.0-4.0); LYMPHOCYTES % (AUTO) 5 % (12-44); MEAN PLATELET VOLUME 11.1 FL (7.4-10.4); MONOCYTES # (AUTO) 0.4 X 10^3 (0.0-1.0); MONOCYTES % (AUTO) 3 % (0-12); NEUTROPHILS # (AUTO) 11.5 X 10^3 (1.8-7.8); NEUTROPHILS % (AUTO) 91 % (42-75); PLATELET COUNT 212 10^3/uL (130-400)
--- NOTE | 2020-01-09 20:23 | ED General ---
General Stated Complaint: CIRCULATION PROBLEMS History of Present Illness Date Seen by Provider: Jan 09, 2020 Time Seen by Provider: 19:30 Initial Comments The patient is a 69-year-old chronically ill male with a history of multiple sclerosis with wheelchair dependence, some degree of heart failure not on a loop diuretic and without echocardiogram on file, atrial fibrillation on amiodarone and apixaban, COPD with chronic respiratory failure on 3 L per nasal cannula at baseline, colostomy in place. Tristan was diagnosed with COVID-19 11 days ago and has been managing the disease without any significant difficulty and has not had to be admitted to the hospital. He was seen here yesterday for evaluation of wheezing and shortness of breath and was diagnosed with a COPD exacerbation and placed on a steroid burst and doxycycline. Labs yesterday were unrevealing of any evidence of acute process aside from acute renal insufficiency with a creatinine of 1.6; baseline creatinine appears to be around 0.8. The patient presents with concern for leg perfusion issues. Today nursing staff at his facility noticed that his legs were discolored and cool, somewhat dusky in appearance bilaterally, with sluggish capillary refill. Nursing staff asked him if he could feel his feet and he stated that he could not. Typically he does have appropriate sensation in his feet per nursing staff at his facility. At that time they elected to call an ambulance to bring him to the hospital for evaluation. Reportedly Tristan was quite upset with nursing staff at his SNF about being transported and did not want to come to the hospital today. Upon arrival to the emergency department the patient is alert and oriented and appropriately interactive and in no acute distress. He is saturating appropriately on his typical 3 L of home oxygen and other vital signs are within normal limits. He seems upset to be here and does not engage with me very much and does not provide much history. He does not provide a clear and consistent answer when I ask if he can feel me touching his feet. He is able to move his feet and legs volitionally to some degree, although not much; unclear whether this is his baseline or how far it may be from his baseline as a wheelchair user with MS. His feet remain mildly dusky and with sluggish capillary refill. Tristan denies fevers, nausea or vomiting, upper respiratory congestion/rhinorrhea, worsening of his chronic productive cough, shortness of breath any worse than usual, chest pain of any kind, abdominal pain, flank pain, back pain, dysuria or hematuria, changes in ostomy output. He does clearly and repeatedly deny any pain in either of his legs, or anywhere else. Allergies and Home Medications Allergies Coded Allergies: No Known Drug Allergies (Unverified , 05/24/19) Home Medications Acetaminophen 500 Mg Tablet, 500 MG PO Q6H PRN for PAIN-MILD OR TEMPATURE, (Reported) Alprazolam 0.5 Mg Tablet, 0.5 MG PO HS, (Reported) Amino Acids/Protein Hydrolys 887 Ml Liquid, 30 ML PO DAILY, (Reported) Amiodarone HCl 200 Mg Tablet, 200 MG PO Q12H, (Reported) Apixaban 5 Mg Tablet, 5 MG PO BID, (Reported) Citalopram Hydrobromide 20 Mg Tablet, 20 MG PO DAILY, (Reported) Citalopram Hydrobromide 10 Mg Tablet, 10 MG PO DAILY, (Reported) Doxycycline Hyclate 100 Mg Tablet, 100 MG PO BID Prescribed by: STEFF SOMMER on 01/08/20 1225 Famotidine 20 Mg Tablet, 20 MG PO BID, (Reported) Fluticasone Propionate 16 Gm [place].susp, 2 SPRAYS NS DAILY, (Reported) Guaifenesin 400 Mg Tablet, 400 MG PO QID, (Reported) Ibuprofen 400 Mg Tablet, 400 MG PO TID PRN for PAIN-MILD, (Reported) Ipratropium/Albuterol Sulfate 3 Ml Ampul.neb, 3 ML NEB Q6H PRN for SHORTNESS OF BREATH, (Reported) Magnesium Oxide 400 Mg Tablet, 400 MG PO DAILY, (Reported) Megestrol Acetate 400 Mg/10 Ml Oral.susp, 10 ML PO DAILY, (Reported) Morphine Sulfate 30 Mg Tablet.er, 30 MG PO 0600,1400,2200, (Reported) Multivitamin 1 Each Tablet, 1 TAB PO DAILY, (Reported) Nystatin/Triamcinolone 15 Gm Oint, TP BID PRN for STOMA, (Reported) Ondansetron HCl 4 Mg Tab, 4 MG PO Q4H PRN for NAUSEA/VOMITING-1ST LINE, (Reported) Prednisone 20 Mg Tab, 40 MG PO DAILY Prescribed by: STEFF SOMMER on 01/08/20 1225 Pregabalin 225 Mg Capsule, 225 MG PO TID, (Reported) Quetiapine Fumarate 50 Mg Tablet, 50 MG PO HS, (Reported) Tamsulosin HCl 0.4 Mg Cap, 0.4 MG PO HS, (Reported) Tea Tree Oil 1 Ml Oil, 4 DROP EACH EAR BID PRN for EAR, (Reported) Tramadol HCl 50 Mg Tablet, 100 MG PO Q6H PRN for PAIN-MODERATE, (Reported) Zinc Gluconate 30 Mg Tablet, 30 MG PO DAILY, (Reported) [Alcohol/Vinegar] , 4 DROPS EACH EAR PRN PRN for EAR PAIN, (Reported) ALCOHOL/WHITE VINEGAR EQUAL PARTS Patient Home Medication List Home Medication List Reviewed: Yes Review of Systems Review of Systems Constitutional: see HPI All Other Systems Reviewed Negative Unless Noted: Yes (Negative excepted noted.) Past Fmemvlq-Tujkgi-Iwbogc Hx Past Med/Social Hx: Reviewed Nursing Past Med/Soc Hx Patient Social History Alcohol Beverage of Choice: Beer Type Used: Cigarettes 2nd Hand Smoke Exposure: No Recent Foreign Travel: No Contact w/Someone Who Travel: No Recent Hopitalizations: No Immunizations Up To Date Date of Pneumonia Vaccine: Dec 09, 2017 Date of Influenza Vaccine: Dec 09, 2017 Seasonal Allergies Seasonal Allergies: No Past Medical History Surgeries: Yes (Colostomy) Respiratory: Yes COPD, Emphysema Cardiac: Yes (CHF) Irregular Heartbeat Neurological: Yes Multiple Sclerosis Genitourinary: Yes (renal insufficiency) Gastrointestinal: Yes (Colostomy; ventral hernia) Musculoskeletal: Yes Arthritis Endocrine: No HEENT: No Cancer: No Psychosocial: Yes Depression Integumentary: No Blood Disorders: No Family Medical History Reviewed Nursing Family Hx FH: CHF (congestive heart failure) 19 FATHER, , Age:70, Onset:60 years & older No Pertinent Family Hx Physical Exam Vital Signs Vital Signs - First Documented 01/09/20 19:50 Temp 36.7 Pulse 83 Resp 18 B/P (MAP) 130/70 (90) Pulse Ox 97 O2 Delivery Nasal Cannula O2 Flow Rate 3.00 Capillary Refill : Height, Weight, BMI Height: 5'8.00" Weight: 156lbs. 2.0oz. [id number]; 18.34 BMI Method:Stated General Appearance: No Apparent Distress Comments This is a cachectic, elderly male appearing chronically ill but nontoxic and in no acute distress. Head is normocephalic and atraumatic. Neck is supple and nontender. No clear JVD. Oropharynx is moist. Lungs with scattered wheezes to all horton but good air movement bilaterally and no rales or rhonchi. Not tachypnea. There is a normal S1 and S2 without rubs or gallops and capillary refill is appropriate, less than 2 seconds globally. Abdomen is soft, nontender and nondistended with stigmata of multiple old surgeries and colostomy in place to left lower quadrant with soft brown stool in the bag. No pulsatile mass to the abdomen. Skin is warm and dry aside from to the bilateral legs as below. Psychiatrically, the patient demonstrates appropriate mood and affect and is alert. Examination of the bilateral lower extremities is remarkable for mildly cool, mildly dusky legs below the level of the knees bilaterally without palpable pulses bilaterally; a DP pulse is Dopplerable on the left but not on the right. Pitting edema, 2+, noted below the level of the knees bilaterally (this is reportedly baseline for the patient). Capillary refill about 4 seconds to both feet. Unable to clearly assess strength and sensation to the bilateral legs distally secondary to lack of patient cooperation. Focused Exam Lactate Level 01/09/20 20:00: Lactic Acid Level 1.36 Lactic Acid Level Laboratory Tests Test 01/09/20 20:00 Lactic Acid Level 1.36 MMOL/L (0.50-2.00) Procedures/Interventions Date of ETT Placement: Sep 03, 2018 Time of ETT Placement: 1032 Progress/Results/Core Measures Suspected Sepsis SIRS Temperature: Pulse: Respiratory Rate: Laboratory Tests 01/09/20 20:00: White Blood Count 12.7H Blood Pressure / Mean: 01/09/20 20:00: Lactic Acid Level 1.36 Laboratory Tests 01/09/20 20:00: Creatinine 1.23, INR Comment 1.5H, Platelet Count 212, Total Bilirubin 0.5 Results/Orders Lab Results Laboratory Tests Test 01/09/20 20:00 Range/Units White Blood Count 12.7 H 4.3-11.0 10^3/uL Red Blood Count 5.11 4.35-5.85 10^6/uL Hemoglobin 14.9 13.3-17.7 G/DL Hematocrit 46 40-54 % Mean Corpuscular Volume 90 80-99 FL Mean Corpuscular Hemoglobin 29 25-34 PG Mean Corpuscular Hemoglobin Concent 33 32-36 G/DL Red Cell Distribution Width 14.9 H 10.0-14.5 % Platelet Count 212 130-400 10^3/uL Mean Platelet Volume 11.1 H 7.4-10.4 FL Immature Granulocyte % (Auto) 1 % Neutrophils (%) (Auto) 91 H 42-75 % Lymphocytes (%) (Auto) 5 L 12-44 % Monocytes (%) (Auto) 3 0-12 % Eosinophils (%) (Auto) 0 0-10 % Basophils (%) (Auto) 0 0-10 % Neutrophils # (Auto) 11.5 H 1.8-7.8 X 10^3 Lymphocytes # (Auto) 0.6 L 1.0-4.0 X 10^3 Monocytes # (Auto) 0.4 0.0-1.0 X 10^3 Eosinophils # (Auto) 0.0 0.0-0.3 10^3/uL Basophils # (Auto) 0.0 0.0-0.1 10^3/uL Immature Granulocyte # (Auto) 0.1 0.0-0.1 10^3/uL Prothrombin Time 18.4 H 12.2-14.7 SEC INR Comment 1.5 H 0.8-1.4 Activated Partial Thromboplast Time 29 24-35 SEC Sodium Level 143 135-145 MMOL/L Potassium Level 4.7 3.6-5.0 MMOL/L Chloride Level 104 98-107 MMOL/L Carbon Dioxide Level 27 21-32 MMOL/L Anion Gap 12 5-14 MMOL/L Blood Urea Nitrogen 30 H 7-18 MG/DL Creatinine 1.23 0.60-1.30 MG/DL Estimat Glomerular Filtration Rate 58 BUN/Creatinine Ratio 24 Glucose Level 132 H 70-105 MG/DL Lactic Acid Level 1.36 0.50-2.00 MMOL/L Calcium Level 9.1 8.5-10.1 MG/DL Corrected Calcium 9.3 8.5-10.1 MG/DL Total Bilirubin 0.5 0.1-1.0 MG/DL Aspartate Amino Transf (AST/SGOT) 16 5-34 U/L Alanine Aminotransferase (ALT/SGPT) 16 0-55 U/L Alkaline Phosphatase 118 40-136 U/L Troponin I < 0.30 <0.30 NG/ML Total Protein 7.1 6.4-8.2 GM/DL Albumin 3.8 3.2-4.5 GM/DL My Orders Orders - ROXY DELANEY MD Cbc With Automated Diff (01/09/20 19:53) Comprehensive Metabolic Panel (01/09/20 19:53) Troponin I Fs (01/09/20 19:53) Ekg Tracing (01/09/20 19:53) Chest 1 View Ap/Pa Only (01/09/20 19:53) Protime With Inr (01/09/20 19:53) Partial Thromboplastin Time (01/09/20 19:53) Lactic Acid Analyzer (01/09/20 19:53) Ct Angio Ext Lower Bilat W (01/09/20 19:53) Ed Iv/Invasive Line Start (01/09/20 20:03) Ns Iv 500 Ml (Sodium Chloride 0.9%) (01/09/20 20:03) Manual Differential (01/09/20 20:00) Ekg Tracing (01/09/20 20:47) Iohexol Injection (Omnipaque 350 Mg/Ml 1 (01/09/20 21:30) Received Contrast (Hold Metformin- Contr (01/09/20 21:30) Ns (Ivpb) (Sodium Chloride 0.9% Ivpb Bag (01/09/20 21:30) Medications Given in ED Current Medications Medications Dose Ordered Sig/Ignacio Route Start Time Stop Time Status Last Admin Dose Admin Iohexol 150 ml ONCE ONCE IV 01/09/20 21:30 01/09/20 21:34 DC 01/09/20 21:29 140 ML Sodium Chloride 100 ml ONCE ONCE IV 01/09/20 21:30 01/09/20 21:34 DC 01/09/20 21:29 80 ML Sodium Chloride 500 ml @ 0 mls/hr Q0M ONCE IV 01/09/20 20:03 01/09/20 20:04 DC 01/09/20 20:28 999 MLS/HR Vital Signs/I&O 01/09/20 19:50 Temp 36.7 Pulse 83 Resp 18 B/P (MAP) 130/70 (90) Pulse Ox 97 O2 Delivery Nasal Cannula O2 Flow Rate 3.00 Capillary Refill : Progress Note : Time: 20:30 Progress Note Elderly, very comorbid 69-year-old male who continues to abuse tobacco and today presents with an apparent acute change in perfusion today to his bilateral legs. He can move both of them to some degree but told his nurse at his nursing facility that he could not feel his feet bilaterally. He does not provide a clear answer when I ask him this question; he appears to be upset that he had to come here. A dorsalis pedis pulse is Dopplerable on the left but not on the right. Mr. Ledezma is certainly at high risk for peripheral vasculopathy and peripheral thromboembolic disease given his comorbidities and tobacco use history; diminished distal perfusion may also simply reflect degree of dehydration and/or transient vasospasm but at this time cannot exclude some degree of acute vascular occlusion. We will place IV and give a small fluid bolus and check labs and EKG and chest x-ray and will obtain a CT angiography with runoff study to better characterize bilateral leg perfusion. We will then reevaluate. 2220: Workup including labs and imaging as above is generally without signif icant evidence of acute process. A minimal left basilar infiltrate is noted on chest x-ray; patient is COVID positive, was placed on doxycycline yesterday for COPD exacerbation, is at baseline from an oxygen requirement standpoint and is not acutely dyspneic. No further intervention is felt necessary for pulmonary issues today. Labs with creatinine significantly improved versus yesterday, with minimal leukocytosis slightly worsened versus yesterday in the setting of patient's initiating a steroid burst yesterday, and otherwise unremarkable and reassuring. CT runoff study without evidence of acute arterial occlusion either above the aortoiliac bifurcation or distal to it on either side. A variety of incidental findings are noted on CT imaging including pneumobilia which, per discussion with Dr. Ward, is not of concern in the setting of a nontender abdomen and normal LFTs. Patient does have a 3.7 cm AAA which will need to be followed up on outpatient. After a small fluid bolus and warm blankets about his legs and feet, DP and PT pulses are now easily Dopplerable bilaterally and color and temperature of the distal legs has essentially returned to normal. Overall, no evidence of emergency condition is identified. Patient is resting comfortably in no acute distress and requests to go home. We'll discharge back to his facility at this time. Tristan is counseled to follow up with his primary doctor in the next 2-4 days for a reevaluation of his symptoms and a discussion of next steps in care. He understands that if he feels worse is that of better or develops other new symptoms of concern that he will need to return to the emergency department right away for reevaluation. All questions are answered. ECG Comment Sinus rhythm, rate 79, no acute ST elevation or depression, NC 163, QRS 87, QTC 457, EP interpretation. Nonischemic tracing, intervals appropriate. Diagnostic Imaging Comments NAME: TRISTAN MESSINA [facility] REC#: [id number] PT STATUS: REG ER : 1950 PHYSICIAN: ROXY DELANEY MD ADMIT DATE: 01/09/20/ER FS Draft Date of Exam:01/09/20 CHEST 1 VIEW AP/PA ONLY INDICATION: Pneumonia. COMPARISON: Prior examination from 01/08/2020. FINDINGS: There is some bullous emphysematous disease. Heart size is normal. There is no pleural effusion or pneumothorax. Mediastinum is unremarkable. IMPRESSION: Bullous emphysematous disease with patchy left basilar infiltrate. Dictated on workstation # [id number] Dict: 01/09/202124 Trans: 01/09/202126 [facility] [id number] Interpreted by: DEZ ROGERS MD Electronically signed by: NAME: TRISTAN MESSINA [facility] REC#: [id number] PT STATUS: REG ER : 1950 PHYSICIAN: ROXY DELANEY MD ADMIT DATE: 01/09/20/ER FS Draft Date of Exam:01/09/20 CT ANGIO EXT LOWER BILAT W INDICATION: Acute diminished perfusion to lower extremities. EXAMINATION: CTA of bilateral lower extremities with contrast. FINDINGS: There is scarring in the lung bases. There also appears to be some bullous emphysematous disease. There is pneumobilia which is presumably postsurgical. The spleen is normal. The pancreas is normal. The adrenal glands are unremarkable. There are bilateral renal cysts. There is a 3.7 cm infrarenal abdominal aortic aneurysm. There is a right lower quadrant ostomy. There is also a left paramidline anterior abdominal wall hernia containing a loop of colon. There is no evidence of obstruction or strangulation. There is marked distention of the urinary bladder. The evaluation of the pelvic structures is limited due to bilateral hip arthroplasty. The common femoral and superficial femoral arteries are patent. There does appear to be some small vessel disease below the knee. Bolus timing is suboptimal. There is no other abnormal fluid collection or mass. IMPRESSION: 1. Pneumobilia, presumably postsurgical. 2. Bilateral renal cysts. 3. Marked distention of the urinary bladder. 4. 3.7 cm infrarenal abdominal aortic aneurysm. 5. Right lower quadrant ostomy with a peristomal hernia as well as a left paramedian anterior abdominal wall hernia containing a loop of colon which does not appear to be strangulated or obstructed. 6. Grossly unremarkable lower extremity arterial runoff although bolus timing below the knee is suboptimal. Dictated on workstation # [id number] Dict: 01/09/202143 Trans: 01/09/202152 [facility] [id number] Interpreted by: DEZ ROGERS MD Electronically signed by: Departure Impression Primary Impression: Feared condition not demonstrated Disposition: 03 XFER SNF Condition: Improved Departure-Patient Inst. Referrals: ROCHELLE VASQUEZ MD (PCP/Family) Primary Care Physician Patient Instructions: COVID19 Add. Discharge Instructions: Follow-up very closely with your primary care physician in the office in the next 2-4 days for a reevaluation of your symptoms and a discussion of next best steps in care. Continue taking the antibiotic and the steroid as they were prescribed to you yesterday to help with your breathing. Return to the emergency department right away with worsening symptoms of any kind or with any other new symptoms of concern. Imaging today revealed an abdominal aortic aneurysm, which is a weak spot in the aorta which supplies blood to your lower body. Please make certain to follow this up with your primary care physician at your upcoming appointment as you will likely need a referral to the vascular surgeon for further outpatient evaluation of this issue. ROXY DELANEY MD Jan 09, 2020 20:23
[2020-01-09 20:28] LABS: INR 1.5 (0.8-1.4); PROTHROMBIN TIME PATIENT 18.4 SEC (12.2-14.7)
[2020-01-09 20:36] LABS: ALANINE AMINOTRANSFERASE 16 U/L (0-55); ALBUMIN 3.8 GM/DL (3.2-4.5); ALKALINE PHOSPHATASE 118 U/L (40-136); BILIRUBIN,TOTAL 0.5 MG/DL (0.1-1.0); BUN/CREATININE RATIO 24; CALCIUM 9.1 MG/DL (8.5-10.1); CARBON DIOXIDE 27 MMOL/L (21-32); CHLORIDE 104 MMOL/L (98-107); CREATININE SERUM 1.23 MG/DL (0.60-1.30); GFR ESTIMATED 58; GLUCOSE 132 MG/DL (70-105); POTASSIUM 4.7 MMOL/L (3.6-5.0); SODIUM 143 MMOL/L (135-145); TOTAL PROTEIN 7.1 GM/DL (6.4-8.2)
--- NOTE | 2020-01-09 20:45 | NUR ---
bilateral pedal pulses doppled at dp
--- NOTE | 2020-01-09 21:27 | Diagnostic Imaging Report ---
INDICATION: Pneumonia. COMPARISON: Prior examination from 01/08/2020. FINDINGS: There is some bullous emphysematous disease. Heart size is normal. There is no pleural effusion or pneumothorax. Mediastinum is unremarkable. IMPRESSION: Bullous emphysematous disease with patchy left basilar infiltrate. Dictated by: Dictated on workstation # [id number]
[2020-01-09] MEDS ORDERED: NS 100 ML (IVPB) BAG IV ONE (21:30)
[2020-01-09] MEDS ORDERED: IOHEXOL 350 MG/ML 150 ML (OMNIPAQUE 350) VIAL IV ONE (21:30)
[2020-01-09] MEDS ORDERED: HOLD METFORMIN - RECEIVED CONTRAST 20 ML VIAL IV SCH (21:30)
--- NOTE | 2020-01-09 21:55 | Diagnostic Imaging Report ---
INDICATION: Acute diminished perfusion to lower extremities. EXAMINATION: CTA of bilateral lower extremities with contrast. All CT scans use one or more of the following dose optimizing techniques: automated exposure control, MA and/or KvP adjustment based on patient size and exam type or iterative reconstruction. FINDINGS: There is scarring in the lung bases. There also appears to be some bullous emphysematous disease. There is pneumobilia which is presumably postsurgical. The spleen is normal. The pancreas is normal. The adrenal glands are unremarkable. There are bilateral renal cysts. There is a 3.7 cm infrarenal abdominal aortic aneurysm. There is a right lower quadrant ostomy. There is also a left paramidline anterior abdominal wall hernia containing a loop of colon. There is no evidence of obstruction or strangulation. There is marked distention of the urinary bladder. The evaluation of the pelvic structures is limited due to bilateral hip arthroplasty. The common femoral and superficial femoral arteries are patent. There does appear to be some small vessel disease below the knee. Bolus timing is suboptimal. There is no other abnormal fluid collection or mass. IMPRESSION: 1. Pneumobilia, presumably postsurgical. 2. Bilateral renal cysts. 3. Marked distention of the urinary bladder. 4. 3.7 cm infrarenal abdominal aortic aneurysm. 5. Right lower quadrant ostomy with a peristomal hernia as well as a left paramedian anterior abdominal wall hernia containing a loop of colon which does not appear to be strangulated or obstructed. 6. Grossly unremarkable lower extremity arterial runoff although bolus timing below the knee is suboptimal. Dictated by: Dictated on workstation # [id number]
--- NOTE | 2020-01-09 22:15 | NUR ---
report called to snf.
[2020-01-09 22:31] LABS: LYMPHOCYTES % (MANUAL) 3 %; MONOCYTES % (MANUAL) 2 %; NEUTROPHILS % (MANUAL) 95 %; POLYCHROMASIA SLIGHT; TOXIC GRANULATION/VACUOLAZATIO 4+
[2020-01-09 22:35] VITALS: BP 151/87
--- NOTE | 2020-01-09 22:35 | NUR ---
ems here for transport report and care given
== END 2020-01-09 22:35 ==
LOC: EDUNIT# 19:43 → ER FS 19:45
DX: Z71.1 Person with feared health complaint in whom no diagnosis is made (principal); J44.9 Chronic obstructive pulmonary disease, unspecified; F32.9 Major depressive disorder, single episode, unspecified; Z82.49 Family history of ischemic heart disease and other diseases of the circulatory system; Z79.52 Long term (current) use of systemic steroids; Z79.01 Long term (current) use of anticoagulants
CPT/HCPCS: 36415; 71045; 80053; 83605; 84484; 85007; 85027; 85610; 85730

== ENCOUNTER 2020-01-14 11:10 | Emergency (ER) | payer MEDICARE, MEDICAID ==
--- NOTE | 2020-01-14 11:15 | ED General ---
General Stated Complaint: LETHARGY Source of Information: EMS, Long-Term Records Exam Limitations: Physical Impairments History of Present Illness Date Seen by Provider: Jan 14, 2020 Time Seen by Provider: 11:15 Initial Comments 69-[facility]-old [facility] This is patient's third visit with known COVID. shelter reports that he was having low oxygen saturations and low blood pressure. [facility] the [facility]. He also report he was lethargic. EMS reports when they arrived his oxygen on 3-4 L was in the upper 90s with his blood pressure systolic of the 100s. Upon arrival patient's been is alert with good vital signs. Patient just asked why he is here. He does not provide any other information. Allergies and Home Medications Allergies Coded Allergies: No Known Drug Allergies (Unverified , 05/24/19) Home Medications Acetaminophen 500 Mg Tablet, 500 MG PO Q6H PRN for PAIN-MILD OR TEMPATURE, (Reported) Alprazolam 0.5 Mg Tablet, 0.5 MG PO HS, (Reported) Amino Acids/Protein Hydrolys 887 Ml Liquid, 30 ML PO DAILY, (Reported) Amiodarone HCl 200 Mg Tablet, 200 MG PO Q12H, (Reported) Apixaban 5 Mg Tablet, 5 MG PO BID, (Reported) Citalopram Hydrobromide 20 Mg Tablet, 20 MG PO DAILY, (Reported) Citalopram Hydrobromide 10 Mg Tablet, 10 MG PO DAILY, (Reported) Doxycycline Hyclate 100 Mg Tablet, 100 MG PO BID Prescribed by: STEFF SOMMER on 01/08/20 1225 Famotidine 20 Mg Tablet, 20 MG PO BID, (Reported) Fluticasone Propionate 16 Gm [place].susp, 2 SPRAYS NS DAILY, (Reported) Guaifenesin 400 Mg Tablet, 400 MG PO QID, (Reported) Ibuprofen 400 Mg Tablet, 400 MG PO TID PRN for PAIN-MILD, (Reported) Ipratropium/Albuterol Sulfate 3 Ml Ampul.neb, 3 ML NEB Q6H PRN for SHORTNESS OF BREATH, (Reported) Magnesium Oxide 400 Mg Tablet, 400 MG PO DAILY, (Reported) Megestrol Acetate 400 Mg/10 Ml Oral.susp, 10 ML PO DAILY, (Reported) Morphine Sulfate 30 Mg Tablet.er, 30 MG PO 0600,1400,2200, (Reported) Multivitamin 1 Each Tablet, 1 TAB PO DAILY, (Reported) Nystatin/Triamcinolone 15 Gm Oint, TP BID PRN for STOMA, (Reported) Ondansetron HCl 4 Mg Tab, 4 MG PO Q4H PRN for NAUSEA/VOMITING-1ST LINE, (Reported) Prednisone 20 Mg Tab, 40 MG PO DAILY Prescribed by: STEFF SOMMER on 01/08/20 1225 Pregabalin 225 Mg Capsule, 225 MG PO TID, (Reported) Quetiapine Fumarate 50 Mg Tablet, 50 MG PO HS, (Reported) Tamsulosin HCl 0.4 Mg Cap, 0.4 MG PO HS, (Reported) Tea Tree Oil 1 Ml Oil, 4 DROP EACH EAR BID PRN for EAR, (Reported) Tramadol HCl 50 Mg Tablet, 100 MG PO Q6H PRN for PAIN-MODERATE, (Reported) Zinc Gluconate 30 Mg Tablet, 30 MG PO DAILY, (Reported) [Alcohol/Vinegar] , 4 DROPS EACH EAR PRN PRN for EAR PAIN, (Reported) ALCOHOL/WHITE VINEGAR EQUAL PARTS Patient Home Medication List Home Medication List Reviewed: Yes Review of Systems Review of Systems Constitutional: see HPI EENTM: no symptoms reported Respiratory: see HPI, cough Cardiovascular: no symptoms reported Gastrointestinal: no symptoms reported Genitourinary: no symptoms reported Musculoskeletal: no symptoms reported Skin: no symptoms reported Psychiatric/Neurological: See HPI Hematologic/Lymphatic: No Symptoms Reported Past Plqsikm-Jsqfzf-Holniv Hx Past Med/Social Hx: Reviewed Nursing Past Med/Soc Hx Patient Social History Alcohol Beverage of Choice: Beer Type Used: Cigarettes 2nd Hand Smoke Exposure: No Recent Foreign Travel: No Contact w/Someone Who Travel: No Recent Hopitalizations: No Immunizations Up To Date Date of Pneumonia Vaccine: Dec 09, 2017 Date of Influenza Vaccine: Dec 09, 2017 Seasonal Allergies Seasonal Allergies: No Past Medical History Surgeries: Yes (Colostomy) Respiratory: Yes COPD, Emphysema Cardiac: Yes (CHF) Irregular Heartbeat Neurological: Yes Multiple Sclerosis Genitourinary: Yes (renal insufficiency) Gastrointestinal: Yes (Colostomy; ventral hernia) Musculoskeletal: Yes Arthritis Endocrine: No HEENT: No Cancer: No Psychosocial: Yes Depression Integumentary: No Blood Disorders: No Family Medical History FH: CHF (congestive heart failure) 19 FATHER, , Age:70, Onset:60 years & older No Pertinent Family Hx Physical Exam Vital Signs Vital Signs - First Documented 01/14/20 11:15 Temp 36.3 Pulse 73 Resp 20 B/P (MAP) 109/67 (81) Pulse Ox 96 O2 Delivery Nasal Cannula O2 Flow Rate 3.00 Capillary Refill : Height, Weight, BMI Height: 5'8.00" Weight: 156lbs. 2.0oz. 70.805399it; 23.00 BMI Method:Stated General Appearance: No Apparent Distress, Cachetic HEENT: PERRL/EOMI Neck: Full Range of Motion Respiratory: No Accessory Muscle Use, No Respiratory Distress, Decreased Breath Sounds (mild decreased breath sound in the bases) Cardiovascular: Regular Rate, Rhythm, No Edema Gastrointestinal: Non Tender, Soft, Other (ostomy bag present in right lower quadrant) Extremity: Normal Inspection, Normal Range of Motion Neurologic/Psychiatric: Alert, No Motor/Sensory Deficits Focused Exam Lactate Level 01/14/20 11:20: Lactic Acid Level 1.66 Lactic Acid Level Laboratory Tests Test 01/14/20 11:20 Lactic Acid Level 1.66 MMOL/L (0.50-2.00) Procedures/Interventions Date of ETT Placement: Sep 03, 2018 Time of ETT Placement: 1032 Progress/Results/Core Measures Suspected Sepsis SIRS Temperature: Pulse: Respiratory Rate: Laboratory Tests 01/14/20 11:20: White Blood Count 15.9H Blood Pressure / Mean: 01/14/20 11:20: Lactic Acid Level 1.66 Laboratory Tests 01/14/20 11:20: Creatinine 1.73H, Platelet Count 206, Total Bilirubin 0.9 Results/Orders Lab Results Laboratory Tests Test 01/14/20 11:20 Range/Units White Blood Count 15.9 H 4.3-11.0 10^3/uL Red Blood Count 5.10 4.35-5.85 10^6/uL Hemoglobin 14.7 13.3-17.7 G/DL Hematocrit 46 40-54 % Mean Corpuscular Volume 90 80-99 FL Mean Corpuscular Hemoglobin 29 25-34 PG Mean Corpuscular Hemoglobin Concent 32 32-36 G/DL Red Cell Distribution Width 14.9 H 10.0-14.5 % Platelet Count 206 130-400 10^3/uL Mean Platelet Volume 12.8 H 7.4-10.4 FL Immature Granulocyte % (Auto) 2 % Neutrophils (%) (Auto) 83 H 42-75 % Lymphocytes (%) (Auto) 8 L 12-44 % Monocytes (%) (Auto) 6 0-12 % Eosinophils (%) (Auto) 1 0-10 % Basophils (%) (Auto) 0 0-10 % Neutrophils # (Auto) 13.2 H 1.8-7.8 X 10^3 Lymphocytes # (Auto) 1.3 1.0-4.0 X 10^3 Monocytes # (Auto) 1.0 0.0-1.0 X 10^3 Eosinophils # (Auto) 0.1 0.0-0.3 10^3/uL Basophils # (Auto) 0.1 0.0-0.1 10^3/uL Immature Granulocyte # (Auto) 0.3 H 0.0-0.1 10^3/uL Sodium Level 141 135-145 MMOL/L Potassium Level 4.4 3.6-5.0 MMOL/L Chloride Level 101 98-107 MMOL/L Carbon Dioxide Level 25 21-32 MMOL/L Anion Gap 15 H 5-14 MMOL/L Blood Urea Nitrogen 57 H 7-18 MG/DL Creatinine 1.73 H 0.60-1.30 MG/DL Estimat Glomerular Filtration Rate 39 BUN/Creatinine Ratio 33 Glucose Level 105 70-105 MG/DL Lactic Acid Level 1.66 0.50-2.00 MMOL/L Calcium Level 9.1 8.5-10.1 MG/DL Corrected Calcium 9.4 8.5-10.1 MG/DL Total Bilirubin 0.9 0.1-1.0 MG/DL Aspartate Amino Transf (AST/SGOT) 36 H 5-34 U/L Alanine Aminotransferase (ALT/SGPT) 51 0-55 U/L Alkaline Phosphatase 108 40-136 U/L C-Reactive Protein 1.40 H <0.50 MG/DL Total Protein 6.5 6.4-8.2 GM/DL Albumin 3.6 3.2-4.5 GM/DL My Orders Orders - SOMMER,STEFF L DO Cbc With Automated Diff (01/14/20 11:15) Comprehensive Metabolic Panel (01/14/20 11:15) Lactic Acid Analyzer (01/14/20 11:15) Ua Culture If Indicated (01/14/20 11:15) Blood Culture (01/14/20 11:15) Crp Fs (01/14/20 11:15) Chest 1 View Ap/Pa Only (01/14/20 11:15) Manual Differential (01/14/20 11:20) Ed Iv/Invasive Line Start (01/14/20 12:41) Ns Iv 1000 Ml (Sodium Chloride 0.9%) (01/14/20 12:41) Ns Iv 1000 Ml (Sodium Chloride 0.9%) (01/14/20 12:42) Vital Signs/I&O 01/14/20 11:15 Temp 36.3 Pulse 73 Resp 20 B/P (MAP) 109/67 (81) Pulse Ox 96 O2 Delivery Nasal Cannula O2 Flow Rate 3.00 Capillary Refill : Progress Note : Time: 12:56 Progress Note Patient with blood pressure that is mildly soft ranging from mid 80s to mid 110s. Patient with slight elevation in white count and slight new infiltrate for pneumonia. Based on patient's blood pressure variation we will transfer him for observation. Patient is a Dr. Rochelle Vasquez patient has requested that he be sent in the [facility]. Called and discussed with Dr. Vasquez who accepted patient. Diagnostic Imaging Diagonstic Imaging: Xray Plain Films/CT/US/NM/MRI: chest Comments [facility], [place] NAME: TRISTAN MESSINA [facility] REC#: [id number] PT STATUS: REG ER : 1950 PHYSICIAN: STEFF SOMMER DO ADMIT DATE: 01/14/20/ER FS Draft Date of Exam:01/14/20 CHEST 1 VIEW AP/PA ONLY INDICATION: Shortness of breath. TIME OF EXAM: 11:22 a.m. COMPARISON: Correlation is made with prior chest from 01/09/2020. FINDINGS: There is left convexity thoracic scoliotic curvature. Heart size is stable. Patient's face does obscure the right upper lung field. Lungs appear to be fairly clear apart from minimal infiltrate or atelectasis in the left base. There is no effusion or pneumothorax. IMPRESSION: Minimal left basilar infiltrate or atelectasis. Dictated on workstation # [id number] Dict: 01/14/20 1134 Trans: 01/14/20 1137 [id number] Interpreted by: JOSUE CORDOVA MD Electronically signed by: Departure Impression Primary Impression: COVID-19 Additional Impression: Hypotension Qualified Codes: I95.9 - Hypotension, unspecified Disposition: 02 XFER SHT-TRM HOSP Condition: Stable Transfer Transfer Reason: Patient preference Time Spoke to Accepting Phy: 12:50 Transfer Progress Notes Patient accepted by Dr. Vasquez for transferred [facility] Transfer Facility: [facility] Method of Transfer: EMS Departure-Patient Inst. Referrals: ROCHELLE VASQUEZ MD (PCP/Family) Primary Care Physician Patient Instructions: Coronavirus Disease 2019 (COVID-19) (DC) STEFF SOMMER DO Jan 14, 2020 11:15
--- NOTE | 2020-01-14 11:38 | Diagnostic Imaging Report ---
INDICATION: Shortness of breath. TIME OF EXAM: 11:22 a.m. COMPARISON: Correlation is made with prior chest from 01/09/2020. FINDINGS: There is left convexity thoracic scoliotic curvature. Heart size is stable. Patient's face does obscure the right upper lung field. Lungs appear to be fairly clear apart from minimal infiltrate or atelectasis in the left base. There is no effusion or pneumothorax. IMPRESSION: Minimal left basilar infiltrate or atelectasis. Dictated by: Dictated on workstation # [id number]
[2020-01-14 11:45] LABS: HEMATOCRIT 46 % (40-54); HEMOGLOBIN 14.7 G/DL (13.3-17.7); MEAN CORPUSCULAR HEMOGLOBIN 29 PG (25-34); MEAN CORPUSCULAR HGB CONC 32 G/DL (32-36); MEAN CORPUSCULAR VOLUME 90 FL (80-99); MEAN PLATELET VOLUME 12.8 FL (7.4-10.4); PLATELET COUNT 206 10^3/uL (130-400); WHITE BLOOD COUNT 15.9 10^3/uL (4.3-11.0)
[2020-01-14 11:46] LABS: BASOPHILS # (AUTO) 0.1 10^3/uL (0.0-0.1); BASOPHILS % (AUTO) 0 % (0-10); EOSINOPHILS # (AUTO) 0.1 10^3/uL (0.0-0.3); EOSINOPHILS % (AUTO) 1 % (0-10); LYMPHOCYTES # (AUTO) 1.3 X 10^3 (1.0-4.0); LYMPHOCYTES % (AUTO) 8 % (12-44); MONOCYTES % (AUTO) 6 % (0-12); NEUTROPHILS # (AUTO) 13.2 X 10^3 (1.8-7.8); NEUTROPHILS % (AUTO) 83 % (42-75)
[2020-01-14 11:55] LABS: BILIRUBIN,TOTAL 0.9 MG/DL (0.1-1.0); CALCIUM 9.1 MG/DL (8.5-10.1); CREATININE SERUM 1.73 MG/DL (0.60-1.30); POTASSIUM 4.4 MMOL/L (3.6-5.0)
[2020-01-14 11:56] LABS: ALBUMIN 3.6 GM/DL (3.2-4.5); TOTAL PROTEIN 6.5 GM/DL (6.4-8.2)
[2020-01-14] MEDS ORDERED: NS IV 1000 ML 1,000 ML IV SCH (12:41)
[2020-01-14] MEDS ORDERED: NS IV 1000 ML 1,000 ML ONE (12:42)
[2020-01-14 13:04] LABS: BAND NEUTROPHILS 6 %; BASOPHILS % (MANUAL) 0 %; EOSINOPHILS % (MANUAL) 1 %; LYMPHOCYTES % (MANUAL) 11 %; METAMYELOCYTES % 1 %; MONOCYTES % (MANUAL) 4 %; NEUTROPHILS % (MANUAL) 77 %; RBC MORPH NORMAL
[2020-01-14 13:50] VITALS: BP 105/69
== END 2020-01-14 14:10 | disposition short-term general hospital (02) ==
LOC: EDUNIT# 11:10 → ER FS 11:11
DX: U07.1 COVID-19 (principal); I95.9 Hypotension, unspecified; J44.9 Chronic obstructive pulmonary disease, unspecified; F32.9 Major depressive disorder, single episode, unspecified; Z82.49 Family history of ischemic heart disease and other diseases of the circulatory system; Z79.01 Long term (current) use of anticoagulants; Z79.52 Long term (current) use of systemic steroids
CPT/HCPCS: 36415; 71045; 80053; 83605; 85007; 85027; 86141; 87040

== ENCOUNTER → 2020-01-21 | Outpatient (CLI) | payer MEDICARE, MEDICAID ==
[2020-01-21 17:31] LABS: BASOPHILS % (AUTO) 0 % (0-10); EOSINOPHILS % (AUTO) 1 % (0-10); HEMATOCRIT 42 % (40-54); HEMOGLOBIN 13.8 G/DL (13.3-17.7); LYMPHOCYTES % (AUTO) 7 % (12-44); MEAN CORPUSCULAR HEMOGLOBIN 29 PG (25-34); MEAN CORPUSCULAR HGB CONC 33 G/DL (32-36); MEAN CORPUSCULAR VOLUME 89 FL (80-99); MONOCYTES % (AUTO) 6 % (0-12); NEUTROPHILS % (AUTO) 85 % (42-75); PLATELET COUNT 115 10^3/uL (130-400); WHITE BLOOD COUNT 17.7 10^3/uL (4.3-11.0)
[2020-01-21 17:32] LABS: EOSINOPHILS # (AUTO) 0.1 10^3/uL (0.0-0.3); LYMPHOCYTES # (AUTO) 1.3 X 10^3 (1.0-4.0); MONOCYTES # (AUTO) 1.1 X 10^3 (0.0-1.0); NEUTROPHILS # (AUTO) 15.1 X 10^3 (1.8-7.8)
[2020-01-21 17:48] LABS: CREATININE SERUM 1.53 MG/DL (0.60-1.30); POTASSIUM 3.8 MMOL/L (3.6-5.0)
[2020-01-21 17:49] LABS: CALCIUM 8.4 MG/DL (8.5-10.1)
[2020-01-21 18:22] LABS: BAND NEUTROPHILS 1 %; BASOPHILS % (MANUAL) 0 %; EOSINOPHILS % (MANUAL) 1 %; LYMPHOCYTES % (MANUAL) 7 %; MONOCYTES % (MANUAL) 7 %; NEUTROPHILS % (MANUAL) 84 %
== END ==
LOC: LAB FS 16:50
PROVIDERS: ATTEND Pediatrics
DX: U07.1 COVID-19 (principal); I12.9 Hypertensive chronic kidney disease with stage 1 through stage 4 chronic kidney disease, or unspecified chronic kidney disease; N18.9 Chronic kidney disease, unspecified
CPT/HCPCS: 36415; 80048; 85007; 85027

== ENCOUNTER 2020-01-29 19:56 | Inpatient (IN) | payer MEDICARE, MEDICAID ==
[~2020-01-29] VITALS: Ht 175.2 cm; Wt 64.0 kg
[2020-01-29 20:37] LABS: ABG BASE EXCESS -6.4 MMOL/L (-2.5-2.5); ABG OXYGEN SATURATION 99 % (94-100); ABG PCO2 32 MMHG (35-45); ABG PH 7.36 (7.37-7.43); ABG PO2 154 MMHG (79-93); ABG TCO2 19.1 MMOL/L (21.0-31.0); ALLENS TEST NEGATIVE; VENTILATOR NO
[2020-01-29 20:38] LABS: INSPIRED O2 99
[2020-01-29 20:40] LABS: BASOPHILS # (AUTO) 0.1 10^3/uL (0.0-0.1); BASOPHILS % (AUTO) 0 % (0-10); EOSINOPHILS % (AUTO) 0 % (0-10); HEMATOCRIT 47 % (40-54); HEMOGLOBIN 14.8 G/DL (13.3-17.7); LYMPHOCYTES # (AUTO) 0.9 X 10^3 (1.0-4.0); LYMPHOCYTES % (AUTO) 4 % (12-44); MEAN CORPUSCULAR HEMOGLOBIN 29 PG (25-34); MEAN CORPUSCULAR HGB CONC 31 G/DL (32-36); MEAN CORPUSCULAR VOLUME 94 FL (80-99); MONOCYTES # (AUTO) 1.2 X 10^3 (0.0-1.0); MONOCYTES % (AUTO) 5 % (0-12); NEUTROPHILS # (AUTO) 19.6 X 10^3 (1.8-7.8); NEUTROPHILS % (AUTO) 89 % (42-75); PLATELET COUNT 109 10^3/uL (130-400); WHITE BLOOD COUNT 22.1 10^3/uL (4.3-11.0)
[2020-01-29 21:04] LABS: CARBON DIOXIDE 18 MMOL/L (21-32); CHLORIDE 103 MMOL/L (98-107); SODIUM 135 MMOL/L (135-145)
[2020-01-29 21:05] LABS: ALANINE AMINOTRANSFERASE 45 U/L (0-55); ALBUMIN 3.4 GM/DL (3.2-4.5); ALKALINE PHOSPHATASE 150 U/L (40-136); BILIRUBIN,TOTAL 1.7 MG/DL (0.1-1.0); BUN/CREATININE RATIO 25; CALCIUM 8.7 MG/DL (8.5-10.1); CREATININE SERUM 2.08 MG/DL (0.60-1.30); GFR ESTIMATED 32; GLUCOSE 86 MG/DL (70-105); TOTAL PROTEIN 6.1 GM/DL (6.4-8.2)
--- NOTE | 2020-01-29 21:16 | Diagnostic Imaging Report ---
INDICATION: Shortness of air. EXAMINATION: Chest, 01/29/2020. COMPARISON: 01/14/2020. FINDINGS: There are linear vertical densities along the right mid and lower chest likely skinfolds. Repeat chest x-ray with an expiratory view recommended to exclude pneumothorax. Remaining lungs demonstrate diffuse chronic changes. No effusions. Heart and pulmonary vasculature are normal. IMPRESSION: Findings along the right hemithorax most likely caused by skin folds. However, repeat imaging with an expiratory view and care taken to eliminate any skin folds is recommended in order to better exclude a pneumothorax. Dictated by: Dictated on workstation # [id number]
[2020-01-29 21:17] LABS: ELLIPT/OVALOCYTES SLIGHT; LYMPHOCYTES % (MANUAL) 1 %; MONOCYTES % (MANUAL) 2 %; NEUTROPHILS % (MANUAL) 97 %; POIKILOCYTOSIS SLIGHT; POLYCHROMASIA SLIGHT; SMEAR SCAN COMMENT LRG PLTS; TEAR DROP CELLS SLIGHT; TOXIC GRANULATION/VACUOLAZATIO 4+
[2020-01-29] MEDS ORDERED: PIPERACILLIN SODIUM/TAZOBACTAM 4.5 GM in NS (IVPB) 100 ML IV ONE (21:30)
[2020-01-29] MEDS ORDERED: VANCOMYCIN INJECTION 1,000 MG in NS (IVPB) 250 ML IV ONE (21:30)
--- NOTE | 2020-01-29 21:33 | ED EENT ---
History of Present Illness General Chief Complaint: Lower Extremity Stated Complaint: LEG SWELLING Nursing Triage Note: Patient was brought in via EMS for bilateral leg swelling. EMS states that the patient was 70% on RA. Patient normally wears 3L via nasal cannula. EMS put patient on a NRM at 15L with a rise on SPO2 to 99%. Patient has severe bilateral lower leg swelling with weeping noted. Patient states that he hasn't urinated all day. Patient does not have any current complaints of shortness of breath. Patient is placed on a NC at 3L and SPO2 is 97%. Source: EMS notes reviewed History of Present Illness Date Seen by Provider: Jan 29, 2020 Time Seen by Provider: 20:00 Initial Comments Patient is a 69-year-old nonweightbearing [facility] patient who presents with increased bilateral leg swelling and hypoxia. Patient noted to be 70% on room air on EMS arrival. Patient normally wears liters at baseline via nasal cannula. Patient placed on nonrebreather 15 L and satting 99% on ED arrival. Patient decided. No current respiratory distress. Placement with chronic peripheral edema with mottling of bilateral lower extremities extending from mid calf to feet with serous drainage and cellulitis of her right foot. Patient does not currently complain of shortness of breath. No reported chest pain palpitations, fever, nausea vomiting or sweats. Timing/Duration: gradual Severity: moderate Location: other Prearrival Treatment: other Modifying Factors: Improves With Lying Down Allergies and Home Medications Allergies Coded Allergies: No Known Drug Allergies (Unverified , 05/24/19) Home Medications Acetaminophen 500 Mg Tablet, 500 MG PO Q6H PRN for PAIN-MILD OR TEMPATURE, (Reported) Alprazolam 0.5 Mg Tablet, 0.5 MG PO HS, (Reported) Amino Acids/Protein Hydrolys 887 Ml Liquid, 30 ML PO DAILY, (Reported) Amiodarone HCl 200 Mg Tablet, 200 MG PO Q12H, (Reported) Apixaban 5 Mg Tablet, 5 MG PO BID, (Reported) Citalopram Hydrobromide 20 Mg Tablet, 20 MG PO DAILY, (Reported) Citalopram Hydrobromide 10 Mg Tablet, 10 MG PO DAILY, (Reported) Doxycycline Hyclate 100 Mg Tablet, 100 MG PO BID Prescribed by: STEFF SOMMER on 01/08/20 1225 Famotidine 20 Mg Tablet, 20 MG PO BID, (Reported) Fluticasone Propionate 16 Gm [place].susp, 2 SPRAYS NS DAILY, (Reported) Guaifenesin 400 Mg Tablet, 400 MG PO QID, (Reported) Ibuprofen 400 Mg Tablet, 400 MG PO TID PRN for PAIN-MILD, (Reported) Ipratropium/Albuterol Sulfate 3 Ml Ampul.neb, 3 ML NEB Q6H PRN for SHORTNESS OF BREATH, (Reported) Magnesium Oxide 400 Mg Tablet, 400 MG PO DAILY, (Reported) Megestrol Acetate 400 Mg/10 Ml [place].susp, 10 ML PO DAILY, (Reported) Morphine Sulfate 30 Mg Tablet.er, 30 MG PO 0600,1400,2200, (Reported) Multivitamin 1 Each Tablet, 1 TAB PO DAILY, (Reported) Nystatin/Triamcinolone 15 Gm Oint, TP BID PRN for STOMA, (Reported) Ondansetron HCl 4 Mg Tab, 4 MG PO Q4H PRN for NAUSEA/VOMITING-1ST LINE, (Reported) Prednisone 20 Mg Tab, 40 MG PO DAILY Prescribed by: STEFF SOMMER on 01/08/20 1225 Pregabalin 225 Mg Capsule, 225 MG PO TID, (Reported) Quetiapine Fumarate 50 Mg Tablet, 50 MG PO HS, (Reported) Tamsulosin HCl 0.4 Mg Cap, 0.4 MG PO HS, (Reported) Tea Tree Oil 1 Ml Oil, 4 DROP EACH EAR BID PRN for EAR, (Reported) Tramadol HCl 50 Mg Tablet, 100 MG PO Q6H PRN for PAIN-MODERATE, (Reported) Zinc Gluconate 30 Mg Tablet, 30 MG PO DAILY, (Reported) [Alcohol/Vinegar] , 4 DROPS EACH EAR PRN PRN for EAR PAIN, (Reported) ALCOHOL/WHITE VINEGAR EQUAL PARTS Patient Home Medication List Home Medication List Reviewed: Yes Review of Systems Review of Systems Constitutional: see HPI, other Eyes: No Symptoms Reported Ears: No Symptoms Reported Nose: see HPI Mouth: no symptoms reported Throat: no symptoms reported Respiratory: no symptoms reported Cardiovascular: see HPI Gastrointestinal: see HPI Neurological: See HPI Hematologic/Lymphatic: See HPI Immunological/Allergic: see HPI Past Rflhtrh-Ogeibl-Ncphov Hx Past Med/Social Hx: Reviewed Nursing Past Med/Soc Hx Patient Social History Alcohol Use: Denies Use Alcohol Beverage of Choice: Beer Recreational Drug Use: No Smoking Status: Unknown if Ever Smoked Type Used: Cigarettes 2nd Hand Smoke Exposure: No Recent Foreign Travel: No Contact w/Someone Who Travel: No Recent Infectious Disease Expo: No Recent Hopitalizations: No Physical Abuse: No Sexual Abuse: No Mistreated: No Fear: No Immunizations Up To Date Date of Pneumonia Vaccine: Dec 09, 2017 Date of Influenza Vaccine: Dec 09, 2017 Seasonal Allergies Seasonal Allergies: No Past Medical History Surgeries: Yes (Colostomy) Respiratory: Yes (Home O2) COPD, Emphysema Cardiac: Yes (CHF) Irregular Heartbeat Neurological: Yes Multiple Sclerosis Genitourinary: Yes (renal insufficiency) Gastrointestinal: Yes (Colostomy; ventral hernia) Musculoskeletal: Yes Arthritis Endocrine: No HEENT: No Cancer: No Psychosocial: Yes Depression Integumentary: No Blood Disorders: No Family Medical History FH: CHF (congestive heart failure) 19 FATHER, , Age:70, Onset:60 years & older No Pertinent Family Hx Physical Exam Vital Signs Vital Signs - First Documented 01/29/20 19:56 Temp 37.0 Pulse 99 Resp 20 B/P (MAP) 139/87 (104) Pulse Ox 99 O2 Delivery Non Rebreather Height, Weight, BMI Height: 5'8.00" Weight: 156lbs. 2.0oz. 70.877316tu; 18.00 BMI Method:Stated General Appearance: WD/WN, other (disheveled, bedridden, chronically ill-appe aring) Eyes: bilateral eye normal inspection, bilateral eye PERRL, bilateral eye EOMI Ears: bilateral ear auricle normal, bilateral ear canal normal Mouth/Throat: normal mouth inspection Neck: supple Cardiovascular: tachycardia Respiratory: decreased breath sounds, rhonchi Gastrointestinal: soft, other (large nonincarcerated ventral hernia) Neurologic/Psychiatric: alert, other (flat, ) Skin: other (peripheral edema bilateral lower extremities extending from distal thighs 2 feet, wheezing of right foot with cellulitis noted.) Procedures/Interventions Date of ETT Placement: Sep 03, 2018 Time of ETT Placement: 1032 Progress/Results/Core Measures Results/Orders Lab Results Laboratory Tests Test 01/29/20 19:58 01/29/20 20:05 01/29/20 20:35 01/29/20 22:51 Range/Units White Blood Count 22.1 H 4.3-11.0 10^3/uL Red Blood Count 5.04 4.35-5.85 10^6/uL Hemoglobin 14.8 13.3-17.7 G/DL Hematocrit 47 40-54 % Mean Corpuscular Volume 94 80-99 FL Mean Corpuscular Hemoglobin 29 25-34 PG Mean Corpuscular Hemoglobin Concent 31 L 32-36 G/DL Red Cell Distribution Width 17.4 H 10.0-14.5 % Platelet Count 109 L 130-400 10^3/uL Mean Platelet Volume 7.4-10.4 FL Immature Granulocyte % (Auto) 1 % Neutrophils (%) (Auto) 89 H 42-75 % Lymphocytes (%) (Auto) 4 L 12-44 % Monocytes (%) (Auto) 5 0-12 % Eosinophils (%) (Auto) 0 0-10 % Basophils (%) (Auto) 0 0-10 % Neutrophils # (Auto) 19.6 H 1.8-7.8 X 10^3 Lymphocytes # (Auto) 0.9 L 1.0-4.0 X 10^3 Monocytes # (Auto) 1.2 H 0.0-1.0 X 10^3 Eosinophils # (Auto) 0.0 0.0-0.3 10^3/uL Basophils # (Auto) 0.1 0.0-0.1 10^3/uL Immature Granulocyte # (Auto) 0.2 H 0.0-0.1 10^3/uL Neutrophils % (Manual) 97 % Lymphocytes % (Manual) 1 % Monocytes % (Manual) 2 % Toxic Granulation 4+ Polychromasia SLIGHT Poikilocytosis SLIGHT Tear Drop Cells SLIGHT Elliptocytes SLIGHT Sodium Level 135 135-145 MMOL/L Potassium Level 5.0 3.6-5.0 MMOL/L Chloride Level 103 98-107 MMOL/L Carbon Dioxide Level 18 L 21-32 MMOL/L Anion Gap 14 5-14 MMOL/L Blood Urea Nitrogen 51 H 7-18 MG/DL Creatinine 2.08 H 0.60-1.30 MG/DL Estimat Glomerular Filtration Rate 32 BUN/Creatinine Ratio 25 Glucose Level 86 70-105 MG/DL Lactic Acid Level 2.29 *H 2.41 *H 0.50-2.00 MMOL/L Calcium Level 8.7 8.5-10.1 MG/DL Corrected Calcium 9.2 8.5-10.1 MG/DL Total Bilirubin 1.7 H 0.1-1.0 MG/DL Aspartate Amino Transf (AST/SGOT) 30 5-34 U/L Alanine Aminotransferase (ALT/SGPT) 45 0-55 U/L Alkaline Phosphatase 150 H 40-136 U/L Troponin I < 0.30 <0.30 NG/ML C-Reactive Protein 7.83 H <0.50 MG/DL Pro-B-Type Natriuretic Peptide 347.2 H <75.0 PG/ML Total Protein 6.1 L 6.4-8.2 GM/DL Albumin 3.4 3.2-4.5 GM/DL Smear Scan LRG PLTS Blood Gas Puncture Site LEFT WRIST Blood Gas Patient Temperature 37.0 Arterial Blood pH 7.36 L 7.37-7.43 Arterial Blood Partial Pressure CO2 32 L 35-45 MMHG Arterial Blood Partial Pressure O2 154 H 79-93 MMHG Arterial Blood HCO3 18 L 23-27 MMOL/L Arterial Blood Total CO2 19.1 L 21.0-31.0 MMOL/L Arterial Blood Oxygen Saturation 99 94-100 % Arterial Blood Base Excess -6.4 L -2.5-2.5 MMOL/L [place] Test NEGATIVE Blood Gas Ventilator Setting NO Blood Gas Inspired Oxygen 99 Test 01/29/20 23:54 Range/Units Urine Color DARK YELLOW Urine Clarity CLEAR Urine pH 6.0 5-9 Urine Specific [place] 1.025 H 1.016-1.022 Urine Protein TRACE H NEGATIVE Urine Glucose (UA) NEGATIVE NEGATIVE Urine Ketones NEGATIVE NEGATIVE Urine Nitrite NEGATIVE NEGATIVE Urine Bilirubin NEGATIVE NEGATIVE Urine Urobilinogen 0.2 < = 1.0 MG/DL Urine Leukocyte Esterase NEGATIVE NEGATIVE Urine RBC (Auto) NEGATIVE NEGATIVE Urine RBC 2-5 H /HPF Urine WBC 2-5 /HPF Urine Squamous Epithelial Cells NONE /HPF Urine Crystals NONE /LPF Urine Bacteria FEW H /HPF Urine Casts PRESENT /LPF Urine Hyaline Casts 2-5 H /LPF Urine Mucus NEGATIVE /LPF Urine Culture Indicated YES My Orders Orders - ANTWON BENSON DO Cbc With Automated Diff (01/29/20 19:56) Comprehensive Metabolic Panel (01/29/20 19:56) Chest 1 View Ap/Pa Only (01/29/20 19:56) Arterial Blood Gas (01/29/20 19:56) Blood Culture (01/29/20 19:56) Crp Fs (01/29/20 19:56) Probnp Fs (01/29/20 19:56) Troponin I Fs (01/29/20 19:56) Ekg Tracing (01/29/20 19:56) Lactic Acid Analyzer (01/29/20 19:59) Coronavirus Sars-Cov-2 So 2019 (01/29/20 19:59) Manual Differential (01/29/20 20:05) Blood Culture (01/29/20 20:35) Piperacillin Sodium/Tazobactam (Zosyn Vi (01/29/20 21:30) Vancomycin Injection (Vancomycin Injecti (01/29/20 21:30) Ct Head Wo (01/29/20 21:36) Ct Chest/Abdomen/Pelvis Wo (01/29/20 21:36) Ed Iv/Invasive Line Start (01/29/20 22:49) Catheter(Urinary) Insert & Ass 03,15 (01/29/20 23:49) Ua Culture If Indicated (01/29/20 23:53) Urine Culture (01/29/20 23:54) Medications Given in ED Current Medications Medications Dose Ordered Sig/Ignacio Route Start Time Stop Time Status Last Admin Dose Admin Piperacillin Sod/ Tazobactam Sod 4.5 gm/Sodium Chloride 100 ml @ 200 mls/hr ONCE ONCE IV 01/29/20 21:30 01/29/20 21:59 DC 01/29/20 21:29 200 MLS/HR Vancomycin HCl 1000 mg/Sodium Chloride 250 ml @ 250 mls/hr ONCE ONCE IV 01/29/20 21:30 01/29/20 22:29 DC 01/29/20 22:20 250 MLS/HR Vital Signs/I&O 01/29/20 19:56 Temp 37.0 Pulse 99 Resp 20 B/P (MAP) 139/87 (104) Pulse Ox 99 O2 Delivery Non Rebreather 01/30/20 00:00 Intake Total 100 ml Balance 100 ml Blood Pressure Mean: 104 Departure Communication (Admissions) EKG, CT, chest x-ray reviewed. Multiple findings noted on CT abdomen and pelvis reviewed in detail with Dr. Senior stone planer for general surgery. Recommendations are equally catheter placement for bladder decompression, bowel care and transfer to [facility] for medical admission. Acute surgical intervention not indicated at this time. Dr. holman stone planer for [facility] hospitalist service to admit for treatment of chronic peripheral edema of lower extremities and right lower extremity cellulitis. Impression Primary Impression: Cellulitis of right leg Additional Impressions: Sepsis Urinary retention Disposition: XFER SHT-TRM HOSP Condition: Improved Admissions Decision to Admit Reason: Admit from ER (General) Decision to Admit/Date: Jan 30, 2020 Time/Decision to Admit Time: 00:45 (Dr. Tiwari) Transfer Method of Transfer: EMS Departure-Patient Inst. Referrals: ROCHELLE VASQUEZ MD (PCP/Family) Primary Care Physician ANTWON BENSON DO Jan 29, 2020 21:33
[2020-01-30 00:14] LABS: CLARITY,URINE CLEAR; COLOR,URINE DARK YELLOW
[2020-01-30 00:19] LABS: BACTERIA,URINE FEW /HPF; BILIRUBIN,URINE NEGATIVE (NEGATIVE); GLUCOSE, URINE (UA) NEGATIVE (NEGATIVE); KETONES,URINE NEGATIVE (NEGATIVE); LEUKOCYTE ESTERASE ,URINE NEGATIVE (NEGATIVE); NITRITE,URINE NEGATIVE (NEGATIVE); PROTEIN,URINE TRACE (NEGATIVE)
[2020-01-30 03:05] VITALS: BP 137/61
--- NOTE | 2020-01-30 03:05 | NUR ---
TRISTAN MESSINA admitted to room 512-1, with an admitting diagnosis of Sepsis, on 01/30/20 from [facility] via [facility], accompanied by EMS. TRISTAN MESSINA introduced to surroundings, call light, bed controls, phone, TV, temperature control, lights, meal times, smoking policy, visitor policy, side rail policy, bathrooms and showers. Patient Rights given to patient in the handbook.
[2020-01-30] MEDS: NS IV 1000 ML 1,000 ML IV SCH ×3 (04:44→20:28)
[2020-01-30] MEDS ORDERED: NS (IVPB) 100 ML ONE (04:49)
[2020-01-30] MEDS ORDERED: PIPERACILLIN/TAZO 4.5 GM VIAL (ZOSYN) IV ONE (04:49)
[2020-01-30] MEDS: PIPERACILLIN/TAZO 4.5 GM/NS 100 ML IV SCH ×6 (04:52→20:28)
[2020-01-30] MEDS ORDERED: MELA1TAB27 PO (07:15)
[2020-01-30] MEDS ORDERED: MIDO5TAB3 PO (07:16)
[2020-01-30 08:00] VITALS: BP 106/7
--- NOTE | 2020-01-30 09:39 | Diagnostic Imaging Report ---
PROCEDURE: CT head without contrast. TECHNIQUE: Multiple contiguous axial images were obtained through the brain without the use of intravenous contrast. Auto Exposure Controls were utilized during the CT exam to meet ALARA standards for radiation dose reduction. INDICATION: Sepsis and infection. FINDINGS: There is mild prominence of ventricles and sulci. No hydrocephalus. No midline shift. No mass, hemorrhage or extra-axial fluid collection. Calvarium is intact. Some fluid in the left mastoid air cells. There is also partial left mastoidectomy. Sinuses and right mastoid air cells are clear. IMPRESSION: No acute intracranial abnormality. Left mastoid effusion. Dictated by: Dictated on workstation # [id number]
--- NOTE | 2020-01-30 09:49 | Diagnostic Imaging Report ---
PROCEDURE: CT chest, abdomen, and pelvis without contrast. TECHNIQUE: Multiple contiguous axial images were obtained through the chest, abdomen, and pelvis without the use of intravenous contrast. Auto Exposure Controls were utilized during the CT exam to meet ALARA standards for radiation dose reduction. DATE: January 29, 2020. COMPARISON: Chest radiograph January 29, 2020. INDICATION: 69-year-old male, right hip replacement infection. Evaluation for source of sepsis. FINDINGS: There are limitations for evaluation of the abdominal organs, neoplastic processes, abscess, and limited evaluation of the vasculature relating to the lack of intravenous contrast. There are prominent findings of emphysema with apical bulla. There is no identified pulmonary nodule. There is no lung mass. There is no focal airspace consolidation. There is no pneumothorax. There is no pleural effusion. The central airways are patent. Heart is not enlarged. There is no pericardial effusion. There are coronary artery calcifications and additional areas of atherosclerotic disease. There is no identified abnormally enlarged mediastinal or axillary lymph node meeting CT size criteria for adenopathy. There is a low-attenuation right thyroid nodule measuring 2.6 cm in size. There is pneumobilia in the left lobe of the liver. The liver is not nodular in outer contour. The gallbladder is grossly unremarkable in appearance. There is no identified intrahepatic or extrahepatic bile duct dilation. There is very limited evaluation of the pancreas. There is no clearly identified pancreatic parenchymal abnormality on noncontrast assessment. The spleen is normal in size. The adrenal glands are unremarkable. There are multiple renal lesions bilaterally, somewhat high in attenuation and not able to be definitively classified as benign cysts. There is mild to moderate right hydronephrosis. There is very prominent abnormal distention of the urinary bladder without urinary bladder wall thickening. There is moderate left hydronephrosis and dilation of the proximal and mid left ureter. There is no identified renal or ureteral stone. There is an anterior abdominal wall hernia containing segment of transverse colon without associated obstruction. There is also a right anterior abdominal wall hernia containing a bowel segment without associated obstruction. There is no free intraperitoneal air. There is no drainable fluid collection. There are atherosclerotic calcifications. There is an infrarenal abdominal aortic aneurysm measuring up to 3.2 x 3.3 cm in diameter. There is no identified abnormally enlarged lymph node in the abdomen or pelvis which meets CT size criteria for adenopathy. There is a remote prior fracture deformity of the right inferior pubic ramus. There are bilateral hip prostheses. There are degenerative changes of the spine. There is no identified acute bony abnormality. IMPRESSION: CT chest, abdomen, and pelvis. 1. Marked abnormal distention of the urinary bladder without identified urinary bladder wall thickening. 2. Mild to moderate right and moderate left hydronephrosis without identified renal or ureteral stone. 3. Anterior abdominal wall hernias containing segments of bowel without associated obstruction. 4. No identified acute cardiopulmonary abnormality. 5. Prominent findings of emphysema. 6. Multiple renal lesions bilaterally including high attenuation renal lesions not well characterized on this study. Dictated by: Dictated on workstation # [id number]
--- NOTE | 2020-01-30 11:25 | NUR ---
PT ARRIVED TO FLOOR VIA BED, REPORT RECEIVED FROM [employer]OC[employer] PROFESSOR OF THEOLOGY
--- NOTE | 2020-01-30 11:57 | Consultation - Surgery ---
History of Present Illness History of Present Illness Patient Consulted On(johanna/time) 01/30/20 11:51 Time Seen by Provider: 09:53 History of Present Illness Surgery asked to consult regarding incarcerated incisional hernia. HPI per ED: Patient was brought in via EMS for bilateral leg swelling. EMS states that the patient was 70% on RA. Patient normally wears 3L via nasal cannula. EMS put patient on a NRM at 15L with a rise on SPO2 to 99%. Patient has severe bilateral lower leg swelling with weeping noted. Patient states that he hasn't urinated all day. Patient does not have any current complaints of shortness of breath. Patient is placed on a NC at 3L and SPO2 is 97%. Source: EMS notes reviewed Patient is a 69-year-old nonweightbearing care home patient who presents with increased bilateral leg swelling and hypoxia. Patient noted to be 70% on room air on EMS arrival. Patient normally wears liters at baseline via nasal cannula. Patient placed on nonrebreather 15 L and satting 99% on ED arrival. Patient decided. No current respiratory distress. Placement with chronic peripheral edema with mottling of bilateral lower extremities extending from mid calf to feet with serous drainage and cellulitis of her right foot. Patient does not currently complain of shortness of breath. No reported chest pain palpitations, fever, nausea vomiting or sweats. Timing/Duration: gradual Severity: moderate Location: other Prearrival Treatment: other Modifying Factors: Improves With Lying Down Pt is non-communicative, but does answer to his name. I spoke with the ER physician just after midnight. Pt seen today and does not appear to be in any distress. Allergies and Home Medications Allergies Coded Allergies: No Known Drug Allergies (Unverified , 05/24/19) Home Medications Acetaminophen 500 Mg Tablet, 500 MG PO Q6H PRN for PAIN-MILD OR TEMPATURE, (Reported) Alprazolam 0.5 Mg Tablet, 0.5 MG PO HS, (Reported) Amino Acids/Protein Hydrolys 887 Ml Liquid, 30 ML PO DAILY, (Reported) Amiodarone HCl 200 Mg Tablet, 200 MG PO Q12H, (Reported) Apixaban 5 Mg Tablet, 5 MG PO BID, (Reported) Citalopram Hydrobromide 20 Mg Tablet, 20 MG PO DAILY, (Reported) Citalopram Hydrobromide 10 Mg Tablet, 10 MG PO DAILY, (Reported) Famotidine 20 Mg Tablet, 20 MG PO BID, (Reported) Fluticasone Propionate 16 Gm [place].susp, 2 SPRAYS NS DAILY, (Reported) Ipratropium/Albuterol Sulfate 3 Ml Ampul.neb, 3 ML NEB Q6H PRN for SHORTNESS OF BREATH, (Reported) Magnesium Oxide 400 Mg Tablet, 400 MG PO DAILY, (Reported) Megestrol Acetate 400 Mg/10 Ml Oral.susp, 10 ML PO DAILY, (Reported) Melatonin/Pyridoxine HCl (B6) 1 Each Tablet, 3 MG PO HS PRN for INSOMNIA, (Reported) Midodrine HCl 5 Mg Tablet, 5 MG PO TID, (Reported) Morphine Sulfate 30 Mg Tablet.er, 30 MG PO 0600,1400,2200, (Reported) Multivitamin 1 Each Tablet, 1 TAB PO DAILY, (Reported) Ondansetron HCl 4 Mg Tab, 4 MG PO Q4H PRN for NAUSEA/VOMITING-1ST LINE, (Reported) Pregabalin 225 Mg Capsule, 225 MG PO TID, (Reported) Quetiapine Fumarate 50 Mg Tablet, 50 MG PO HS, (Reported) Tamsulosin HCl 0.4 Mg Cap, 0.4 MG PO HS, (Reported) Tea Tree Oil 1 Ml Oil, 4 DROP EACH EAR BID PRN for EAR, (Reported) Tramadol HCl 50 Mg Tablet, 100 MG PO Q6H PRN for PAIN-MODERATE, (Reported) Zinc Gluconate 30 Mg Tablet, 30 MG PO DAILY, (Reported) [Alcohol/Vinegar] , 4 DROPS EACH EAR PRN PRN for EAR PAIN, (Reported) ALCOHOL/WHITE VINEGAR EQUAL PARTS Patient Home Medication List Home Medication List Reviewed: Yes Past Ywugons-Zolrul-Wclsmu Hx Patient Social History Alcohol Use: Denies Use Recreational Drug Use: No Smoking Status: Unknown if Ever Smoked Type Used: Cigarettes 2nd Hand Smoke Exposure: No Recent Foreign Travel: No Contact w/Someone Who Travel: No Recent Infectious Disease Expo: No Recent Hopitalizations: No Immunizations Up To Date Date of Pneumonia Vaccine: Dec 09, 2017 Date of Influenza Vaccine: Dec 30, 2019 Seasonal Allergies Seasonal Allergies: No Surgeries History of Surgeries: Yes (Colostomy) Respiratory History of Respiratory Disorde: Yes (Home O2) Respiratory Disorders: COPD, Emphysema Cardiovascular History of Cardiac Disorders: Yes (CHF) Cardiac Disorders: Irregular Heartbeat Neurological History of Neurological Disord: Yes Neurological Disorders: Multiple Sclerosis Genitourinary History of Genitourinary Disor: Yes (renal insufficiency) Gastrointestinal History of Gastrointestinal Di: Yes (Colostomy; ventral hernia) Musculoskeletal History of Musculoskeletal Dis: Yes Musculoskeletal Disorders: Arthritis Endocrine History of Endocrine Disorders: No HEENT History of HEENT Disorders: No Cancer History of Cancer: No Psychosocial History of Psychiatric Problem: Yes Behavioral Health Disorders: Depression Integumentary History of Skin or Integumenta: No Blood Transfusions History of Blood Disorders: No Family Medical History Significant Family History: Heart Disease Family Medial History: FH: CHF (congestive heart failure) 19 FATHER, , Age:70, Onset:60 years & older Review of Systems-General ROS-Unable to Obtain: pt non-communicative Physical Exam-General Problems Physical Exam Vital Signs Vital Signs - First Documented 01/29/20 01/30/20 19:56 01:59 Temp 37.0 Pulse 99 Resp 20 B/P (MAP) 139/87 (104) Pulse Ox 99 O2 Delivery Non Rebreather O2 Flow Rate 3.00 Capillary Refill : Greater Than 3 Seconds General Appearance: no apparent distress, cachetic Eyes: Bilateral Eye PERRL, Bilateral Eye EOMI HEENT: pharynx normal; No scleral icterus (R), No scleral icterus (L) Neck: non-tender; No carotid bruit Respiratory: lungs clear, normal breath sounds, no respiratory distress, no accessory muscle use Cardiovascular: regular rate, rhythm, no murmur Gastrointestinal: soft, no organomegaly, hernia (incarcerated incisional hernia), other (ostomy pink and fxn, small area of erythema near umbilicus. abd is scaphoid and no signs of obstruction) Extremities: pedal edema (+2 from knees down, mild erythema at shins), other (top of both feet are very swollen and appear to have hematoma) Skin: normal color, warm/dry Lymphatic: no adenopathy (neck, axilla or groin) Data Review Labs Laboratory Tests 01/29/20 19:58: 01/29/20 20:05: White Blood Count 22.1H, Red Blood Count 5.04, Hemoglobin 14.8, Hematocrit 47, Mean Corpuscular Volume 94, Mean Corpuscular Hemoglobin 29, Mean Corpuscular Hemoglobin Concent 31L, Red Cell Distribution Width 17.4H, Platelet Count 109L, Mean Platelet Volume , Immature Granulocyte % (Auto) 1, Neutrophils (%) (Auto) 89H, Lymphocytes (%) (Auto) 4L, Monocytes (%) (Auto) 5, Eosinophils (%) (Auto) 0, Basophils (%) (Auto) 0, Neutrophils # (Auto) 19.6H, Lymphocytes # (Auto) 0.9L , Monocytes # (Auto) 1.2H, Eosinophils # (Auto) 0.0, Basophils # (Auto) 0.1, Immature Granulocyte # (Auto) 0.2H, Neutrophils % (Manual) 97, Lymphocytes % (Manual) 1, Monocytes % (Manual) 2, Toxic Granulation 4+, Polychromasia SLIGHT, Poikilocytosis SLIGHT, Tear Drop Cells SLIGHT, Elliptocytes SLIGHT, Sodium Level 135, Potassium Level 5.0, Chloride Level 103, Carbon Dioxide Level 18L, Anion Gap 14, Blood Urea Nitrogen 51H, Creatinine 2.08H, Estimat Glomerular Filtration Rate 32, BUN/Creatinine Ratio 25, Glucose Level 86, Lactic Acid Level 2.29*H, Calcium Level 8.7, Corrected Calcium 9.2, Total Bilirubin 1.7H, Aspartate Amino Transf (AST/SGOT) 30, Alanine Aminotransferase (ALT/SGPT) 45, Alkaline Phosphatase 150H, Troponin I < 0.30, C-Reactive Protein 7.83H, Pro-B-Type Natriuretic Peptide 347.2H, Total Protein 6.1L, Albumin 3.4, Smear Scan LRG PLTS 01/29/20 20:35: Blood Gas Puncture Site LEFT WRIST, Blood Gas Patient Temperature 37.0, Arterial Blood pH 7.36L, Arterial Blood Partial Pressure CO2 32L, Arterial Blood Partial Pressure O2 154H, Arterial Blood HCO3 18L, Arterial Blood Total CO2 19.1L, Arterial Blood Oxygen Saturation 99, Arterial Blood Base Excess -6.4L, [place] Test NEGATIVE, Blood Gas Ventilator Setting NO, Blood Gas Inspired Oxygen 99 01/29/20 22:51: Lactic Acid Level 2.41*H 01/29/20 23:54: Urine Color DARK YELLOW, Urine Clarity CLEAR, Urine pH 6.0, Urine Specific [place] 1.025H, Urine Protein TRACEH, Urine Glucose (UA) NEGATIVE, Urine Ketones NEGATIVE, Urine Nitrite NEGATIVE, Urine Bilirubin NEGATIVE, Urine Urobilinogen 0.2, Urine Leukocyte Esterase NEGATIVE, Urine RBC (Auto) NEGATIVE, Urine RBC 2- 5H, Urine WBC 2-5, Urine Squamous Epithelial Cells NONE, Urine Crystals NONE, Urine Bacteria FEWH, Urine Casts PRESENT, Urine Hyaline Casts 2-5H, Urine Mucus NEGATIVE, Urine Culture Indicated YES Radiology Date of Exam:01/29/20 CT CHEST/ABDOMEN/PELVIS WO PROCEDURE: CT chest, abdomen, and pelvis without contrast. TECHNIQUE: Multiple contiguous axial images were obtained through the chest, abdomen, and pelvis without the use of intravenous contrast. Auto Exposure Controls were utilized during the CT exam to meet ALARA standards for radiation dose reduction. DATE: January 29, 2020. COMPARISON: Chest radiograph January 29, 2020. INDICATION: 69-year-old male, right hip replacement infection. Evaluation for source of sepsis. FINDINGS: There are limitations for evaluation of the abdominal organs, neoplastic processes, abscess, and limited evaluation of the vasculature relating to the lack of intravenous contrast. There are prominent findings of emphysema with apical bulla. There is no identified pulmonary nodule. There is no lung mass. There is no focal airspace consolidation. There is no pneumothorax. There is no pleural effusion. The central airways are patent. Heart is not enlarged. There is no pericardial effusion. There are coronary artery calcifications and additional areas of atherosclerotic disease. There is no identified abnormally enlarged mediastinal or axillary lymph node meeting CT size criteria for adenopathy. There is a low-attenuation right thyroid nodule measuring 2.6 cm in size. There is pneumobilia in the left lobe of the liver. The liver is not nodular in outer contour. The gallbladder is grossly unremarkable in appearance. There is no identified intrahepatic or extrahepatic bile duct dilation. There is very limited evaluation of the pancreas. There is no clearly identified pancreatic parenchymal abnormality on noncontrast assessment. The spleen is normal in size. The adrenal glands are unremarkable. There are multiple renal lesions bilaterally, somewhat high in attenuation and not able to be definitively classified as benign cysts. There is mild to moderate right hydronephrosis. There is very prominent abnormal distention of the urinary bladder without urinary bladder wall thickening. There is moderate left hydronephrosis and dilation of the proximal and mid left ureter. There is no identified renal or ureteral stone. There is an anterior abdominal wall hernia containing segment of transverse colon without associated obstruction. There is also a right anterior abdominal wall hernia containing a bowel segment without associated obstruction. There is no free intraperitoneal air. There is no drainable fluid collection. There are atherosclerotic calcifications. There is an infrarenal abdominal aortic aneurysm measuring up to 3.2 x 3.3 cm in diameter. There is no identified abnormally enlarged lymph node in the abdomen or pelvis which meets CT size criteria for adenopathy. There is a remote prior fracture deformity of the right inferior pubic ramus. There are bilateral hip prostheses. There are degenerative changes of the spine. There is no identified acute bony abnormality. IMPRESSION: CT chest, abdomen, and pelvis. 1. Marked abnormal distention of the urinary bladder without identified urinary bladder wall thickening. 2. Mild to moderate right and moderate left hydronephrosis without identified renal or ureteral stone. 3. Anterior abdominal wall hernias containing segments of bowel without associated obstruction. 4. No identified acute cardiopulmonary abnormality. 5. Prominent findings of emphysema. 6. Multiple renal lesions bilaterally including high attenuation renal lesions not well characterized on this study. Dictated on workstation # [id number] Dict: 01/30/20 0934 Trans: 01/30/20 0949 [facility] [id number] Interpreted by: KEYLA GUSMAN MD Assessment/Plan Assessment/Plan Assessment/Plan Incarcerated Incisional Hernia Urinary Retention UTI Cellulitis Pedal edema I believe pt's problem last were due to Urinary retention and UTI. Now that he has bennett in place his abdomen is completely soft, he does have an incarcerated hernia. However, this is a chronic condition and not causing any problems at this time. Cellulitis on the abdomen was most likely because of the abdominal distention due to urinary retention; will monitor. Pedal edema looks to be chronic, may be due to some CHF; pt's BNP is elevated. I will follow along. Clinical Quality Measures DVT/VTE Risk/Contraindication: Risk Factor Score Per Nursin RFS Level Per Nursing on Admit: 4+=Very High FLAVIA MONTESINOS DO Jan 30, 2020 11:57
[2020-01-30 12:22] VITALS: BP 120/61
--- NOTE | 2020-01-30 13:13 | NUR ---
O2 SAT 99% ON 3L VIA NC, O2 DECREASED TO 2L, WILL CONTINUE TO MONITOR
--- NOTE | 2020-01-30 13:59 | History & Physical-Hospitalist ---
History of Present Illness HPI/Chief Complaint Pt is 69yoCM with a PMH of COPD, a fib, MS, and depression who presented to the ER due to leg swelling. Unfortunately Mr Ornelas would not let me examine him or discuss his illness. When I asked if I could at least listen to his heart and lungs he stated "quit jabbering and get out." He then covered himself back up with his blanket. I honored his request and left. All history is obtained from the record but obviously very limited. Source: patient Date Seen 01/30/20 Time Seen by a Provider: 13:52 Attending Physician Roz Wilkins MD PCP Feliz Hernandez MD Referring Physician Date of Admission Jan 30, 2020 at 00:30 Home Medications & Allergies Home Medications Reviewed patient Home Medication Reconciliation performed by pharmacy medication reconciliations commercial hvac technician and/or nursing. Patients Allergies have been reviewed. Allergies Allergies Coded Allergies No Known Drug Allergies (Unverified05/24/19) Past Nerulpj-Cuvwkd-Oeejuh Hx Past Med/Social Hx: Reviewed Nursing Past Med/Soc Hx Patient Social History Employed/Student: unemployed Alcohol Use: Past History Recreational Drug Use: No Smoking Status: Unknown if Ever Smoked Type Used: Cigarettes 2nd Hand Smoke Exposure: No Recent Foreign Travel: No Contact w/other who traveled: No Recent Hopitalizations: No Recent Infectious Disease Expo: No Immunizations Up To Date Date of Pneumonia Vaccine: Dec 09, 2017 Date of Influenza Vaccine: Dec 30, 2019 Seasonal Allergies Seasonal Allergies: No Past Medical History Respiratory: COPD Cardiac: Irregular Heartbeat Neurological: Multiple Sclerosis Musculoskeletal: Arthritis Psychosocial: Depression History of Blood Disorders: No Family History Reviewed Nursing Family Hx FH: CHF (congestive heart failure) 19 FATHER, , Age:70, Onset:60 years & older Heart Disease Review of Systems ROS-Unable to Obtain: would not talk to me Constitutional: see HPI Physical Exam Physical Exam Vital Signs Vital Signs - First Documented 01/29/20 01/30/20 19:56 01:59 Temp 37.0 Pulse 99 Resp 20 B/P (MAP) 139/87 (104) Pulse Ox 99 O2 Delivery Non Rebreather O2 Flow Rate 3.00 Capillary Refill : Less Than 3 Seconds Height, Weight, BMI Height: 5'8.00" Weight: 156lbs. 2.0oz. [id number]; 20.58 BMI Method:Stated General Appearance: No Apparent Distress, Chronically ill, Thin Comments would not let me examine him, hard to even do observational exam as he was likely in bed on his side covered from head to toe in blankets Results Results/Procedures Labs Laboratory Tests 01/29/20 20:05 01/31/20 05:51 Patient resulted labs reviewed. Imaging: Reviewed Imaging Report [facility] [place], [place] NAME: TRISTAN ORNELAS [facility] REC#: [id number] PT STATUS: REG ER : 1950 PHYSICIAN: ANTWON BENSON DO ADMIT DATE: 01/29/20/ER FS Signed Date of Exam:01/29/20 CHEST 1 VIEW AP/PA ONLY INDICATION: Shortness of air. EXAMINATION: Chest, 01/29/2020. COMPARISON: 01/14/2020. FINDINGS: There are linear vertical densities along the right mid and lower chest likely skinfolds. Repeat chest x-ray with an expiratory view recommended to exclude pneumothorax. Remaining lungs demonstrate diffuse chronic changes. No effusions. Heart and pulmonary vasculature are normal. IMPRESSION: Findings along the right hemithorax most likely caused by skin folds. However, repeat imaging with an expiratory view and care taken to eliminate any skin folds is recommended in order to better exclude a pneumothorax. Dictated by: Dictated on workstation # [id number] Dict: 01/29/202047 Trans: 01/29/202137 [facility] [id number] Interpreted by: KEIKO SIMMONS MD Electronically signed by: KEIKO SIMMONS MD 01/29/202137 [facility] [place], [place] NAME: TRISTAN ORNELAS [facility] REC#: [id number] PT STATUS: ADM IN : 1950 PHYSICIAN: ANTWON BENSON DO ADMIT DATE: 01/30/20/CSD Signed Date of Exam:01/29/20 CT HEAD WO PROCEDURE: CT head without contrast. TECHNIQUE: Multiple contiguous axial images were obtained through the brain without the use of intravenous contrast. Auto Exposure Controls were utilized during the CT exam to meet ALARA standards for radiation dose reduction. INDICATION: Sepsis and infection. FINDINGS: There is mild prominence of ventricles and sulci. No hydrocephalus. No midline shift. No mass, hemorrhage or extra-axial fluid collection. Calvarium is intact. Some fluid in the left mastoid air cells. There is also partial left mastoidectomy. Sinuses and right mastoid air cells are clear. IMPRESSION: No acute intracranial abnormality. Left mastoid effusion. Dictated by: Dictated on workstation # [id number] Dict: 01/30/20 0936 Trans: 01/30/20 1025 CV [id number] Interpreted by: DEZ ROGERS MD Electronically signed by: DEZ ROGERS MD 01/30/20 1025 [facility], [place] NAME: TRISTAN ORNELAS [facility] REC#: [id number] PT STATUS: ADM IN : 1950 PHYSICIAN: ANTWON BENSON DO ADMIT DATE: 01/30/20 Signed Date of Exam:01/29/20 CT CHEST/ABDOMEN/PELVIS WO PROCEDURE: CT chest, abdomen, and pelvis without contrast. TECHNIQUE: Multiple contiguous axial images were obtained through the chest, abdomen, and pelvis without the use of intravenous contrast. Auto Exposure Controls were utilized during the CT exam to meet ALARA standards for radiation dose reduction. DATE: January 29, 2020. COMPARISON: Chest radiograph January 29, 2020. INDICATION: 69-year-old male, right hip replacement infection. Evaluation for source of sepsis. FINDINGS: There are limitations for evaluation of the abdominal organs, neoplastic processes, abscess, and limited evaluation of the vasculature relating to the lack of intravenous contrast. There are prominent findings of emphysema with apical bulla. There is no identified pulmonary nodule. There is no lung mass. There is no focal airspace consolidation. There is no pneumothorax. There is no pleural effusion. The central airways are patent. Heart is not enlarged. There is no pericardial effusion. There are coronary artery calcifications and additional areas of atherosclerotic disease. There is no identified abnormally enlarged mediastinal or axillary lymph node meeting CT size criteria for adenopathy. There is a low-attenuation right thyroid nodule measuring 2.6 cm in size. There is pneumobilia in the left lobe of the liver. The liver is not nodular in outer contour. The gallbladder is grossly unremarkable in appearance. There is no identified intrahepatic or extrahepatic bile duct dilation. There is very limited evaluation of the pancreas. There is no clearly identified pancreatic parenchymal abnormality on noncontrast assessment. The spleen is normal in size. The adrenal glands are unremarkable. There are multiple renal lesions bilaterally, somewhat high in attenuation and not able to be definitively classified as benign cysts. There is mild to moderate right hydronephrosis. There is very prominent abnormal distention of the urinary bladder without urinary bladder wall thickening. There is moderate left hydronephrosis and dilation of the proximal and mid left ureter. There is no identified renal or ureteral stone. There is an anterior abdominal wall hernia containing segment of transverse colon without associated obstruction. There is also a right anterior abdominal wall hernia containing a bowel segment without associated obstruction. There is no free intraperitoneal air. There is no drainable fluid collection. There are atherosclerotic calcifications. There is an infrarenal abdominal aortic aneurysm measuring up to 3.2 x 3.3 cm in diameter. There is no identified abnormally enlarged lymph node in the abdomen or pelvis which meets CT size criteria for adenopathy. There is a remote prior fracture deformity of the right inferior pubic ramus. There are bilateral hip prostheses. There are degenerative changes of the spine. There is no identified acute bony abnormality. IMPRESSION: CT chest, abdomen, and pelvis. 1. Marked abnormal distention of the urinary bladder without identified urinary bladder wall thickening. 2. Mild to moderate right and moderate left hydronephrosis without identified renal or ureteral stone. 3. Anterior abdominal wall hernias containing segments of bowel without associated obstruction. 4. No identified acute cardiopulmonary abnormality. 5. Prominent findings of emphysema. 6. Multiple renal lesions bilaterally including high attenuation renal lesions not well characterized on this study. Dictated by: Dictated on workstation # [id number] Dict: 01/30/20 0934 Trans: 01/30/20 1300 CVB [id number] Interpreted by: KEYLA GUSMAN MD Electronically signed by: KEYLA GUSMAN MD 01/30/20 1300 Assessment/Plan Admission Diagnosis Cellulitis of the right leg Admission Status: Inpatient Order (span 2 midnights) Reason for Inpatient Admission: see below Assessment and Plan Severe Sepsis- Cellulitis of the right leg Continue on Vanc and Zosyn Unable to evaluate as patient declined exam Blood cultures pending Hypoxia New onset Does not wear oxygen at home CT chest shows no acute changes but emphysema noted COVID PCR pending Urinary Retention s/p catheter placed Monitor UOP Consult Dr Whatley Incarcerated incisional hernia Surgery consulted, no intervention needed, ansley tse MS Chronic debility PT/OT DVT PPX: Home Eliquis Diagnosis/Problems Diagnosis/Problems (1) Sepsis Status: Acute (2) Cellulitis of right leg Status: Acute (3) Urinary retention Status: Acute (4) PUI (5) Atrial fibrillation Status: Chronic (6) Urinary tract infection Status: Acute Clinical Quality Measures DVT/VTE Risk/Contraindication: Risk Factor Score Per Nursin RFS Level Per Nursing on Admit: 4+=Very High ROZ WILKINS MD Jan 30, 2020 13:59
[2020-01-30] MEDS ORDERED: ACETAMINOPHEN 500 MG TAB (TYLENOL) PO PRN (14:15)
[2020-01-30] MEDS ORDERED: RT-ALBUTEROL/IPRATROPIUM 3 ML (DUONEB) VIAL INH PRN (14:15)
[2020-01-30] MEDS ORDERED: ONDANSETRON 4 MG (ZOFRAN) ORAL DISSOLVE TAB PO PRN (14:30)
[2020-01-30] MEDS: AMIODARONE 200 MG (CORDARONE) TAB PO SCH (14:50)
[2020-01-30] MEDS ORDERED: RT-ALBUTEROL INHALER HFA (VENTOLIN HFA) 18 GM IH PRN (15:00)
[2020-01-30 16:05] VITALS: BP 115/56
[2020-01-30 20:00] VITALS: BP 104/55
[2020-01-30] MEDS ORDERED: MELATONIN 3 MG TABLET PO PRN (21:00)
[2020-01-30] MEDS: FAMOTIDINE 20 MG (PEPCID) TABLET PO SCH (21:12)
[2020-01-30] MEDS: morphine ER 30 MG (MS CONTIN) TAB PO SCH (21:12)
[2020-01-30] MEDS: APIXABAN 5 MG (ELIQUIS) TABLET PO SCH (21:13)
[2020-01-30] MEDS: TAMSULOSIN 0.4 MG (FLOMAX) CAP PO SCH (21:13)
[2020-01-30] MEDS: MIDODRINE 10 MG (PROAMATINE) TAB PO SCH (21:13)
[2020-01-30] MEDS: ALPRAZolam 0.5 MG (XANAX) TAB PO SCH (21:13)
[2020-01-30] MEDS: PREGABALIN 75 MG (LYRICA) CAP PO SCH (21:13)
[2020-01-30] MEDS: QUEtiapine 25 MG (SEROquel) TAB IMMEDIATE RELEASE PO SCH (21:13)
[2020-01-30] MEDS: VANCOMYCIN 1 GM/NS 250 ML IVPB IV SCH ×2 (21:32)
[2020-01-31 00:13] VITALS: BP 98/57
[2020-01-31] MEDS: AMIODARONE 200 MG (CORDARONE) TAB PO SCH ×2 (02:58→12:52)
[2020-01-31] MEDS: PIPERACILLIN/TAZO 4.5 GM/NS 100 ML IV SCH ×6 (02:58→20:49)
[2020-01-31 03:05] VITALS: BP 97/52
[2020-01-31] MEDS: NS IV 1000 ML 1,000 ML IV SCH ×2 (04:10→07:57)
[2020-01-31] MEDS: morphine ER 30 MG (MS CONTIN) TAB PO SCH ×3 (05:59→22:07)
[2020-01-31 06:21] LABS: HEMOGLOBIN 10.1 g/dL (13.3-17.7); MEAN PLATELET VOLUME 12.4 fL (9.0-12.2); WHITE BLOOD COUNT 6.8 10^3/uL (4.3-11.0)
[2020-01-31 06:40] LABS: POTASSIUM 4.5 MMOL/L (3.6-5.0)
[2020-01-31 06:41] LABS: CALCIUM 6.9 MG/DL (8.5-10.1)
[2020-01-31 06:45] LABS: CREATININE SERUM 1.25 MG/DL (0.60-1.30)
[2020-01-31 07:54] VITALS: BP 130/71
[2020-01-31] MEDS: MEGESTROL ACETATE 400 MG/10 ML (MEGACE) UDC PO SCH (07:57)
[2020-01-31] MEDS: MIDODRINE 10 MG (PROAMATINE) TAB PO SCH ×3 (07:58→20:50)
[2020-01-31] MEDS: PREGABALIN 75 MG (LYRICA) CAP PO SCH ×3 (07:58→20:50)
[2020-01-31] MEDS: MULTIVIT W/MINERALS TAB (THERAGRAN M) PO SCH (07:58)
[2020-01-31] MEDS: FLUTICASONE NASAL SPRAY (FLONASE) 16 GM BTL NS SCH (07:59)
[2020-01-31] MEDS: MAGNESIUM OXIDE (MAG-OX)400 MG TAB PO SCH (07:59)
[2020-01-31] MEDS: FAMOTIDINE 20 MG (PEPCID) TABLET PO SCH ×2 (08:00→20:49)
[2020-01-31] MEDS: APIXABAN 5 MG (ELIQUIS) TABLET PO SCH ×2 (08:00→20:49)
[2020-01-31] MEDS: dexAMETHasone 6 MG TAB (DECADRON) PO SCH (12:51)
--- NOTE | 2020-01-31 12:53 | Progress Note - Hospitalist ---
Subjective HPI/CC On Admission Date Seen by Provider: Jan 31, 2020 Time Seen by Provider: 12:43 Pt is 69yoCM with a PMH of COPD, a fib, MS, and depression who presented to the ER due to leg swelling. Unfortunately Mr Ornelas would not let me examine him or discuss his illness. When I asked if I could at least listen to his heart and lungs he stated "quit jabbering and get out." He then covered himself back up with his blanket. I honored his request and left. All history is obtained from the record but obviously very limited. Subjective/Events-last exam Pt reports feeling better today. Did talk to me some and allowed exam today. No complaints. Informed him of his COVID diagnosis. States symptoms started around 10 days ago. Discussed treatment options of convalescent plasma and remdesivir with him but he states he wants to think about it before agreeing. Focused Exam Lactate Level 01/29/20 20:05: Lactic Acid Level 2.29*H 01/29/20 22:51: Lactic Acid Level 2.41*H Objective Exam Vital Signs Vital Signs Date Time Temp Pulse Resp B/P (MAP) Pulse Ox O2 Delivery O2 Flow Rate FiO2 01/31/20 08:05 Nasal Cannula 1.50 01/31/20 07:54 36.1 87 18 130/71 (90) 01/31/20 03:05 95 Capillary Refill : Greater Than 3 Seconds General Appearance: No Apparent Distress, Chronically ill Respiratory: Lungs Clear, No Accessory Muscle Use, Other (on 1.5lpml) Extremity: Pedal Edema, Swelling Neurologic/Psychiatric: Alert, Oriented x3 (to major details, some slight confusion with minor details) Skin: Erythema (of bilateral legs) Results/Procedures Lab Laboratory Tests 01/31/20 05:51 Patient resulted labs reviewed. Imaging: Reviewed Imaging Report Assessment/Plan Assessment and Plan Assess & Plan/Chief Complaint Severe Sepsis- resolved Cellulitis of the right leg Continue on Vanc and Zosyn Blood cultures pending still Decrease IVF Acute Hypoxic Respiratory Failure due to COVID19 CT chest shows no acute changes but emphysema noted COVID PCR positive Decadron ordered On day ten of symptoms, offered remdesivir and CP- patient states he will think about it before agreeing to use IS Urinary Retention MAURICIO s/p catheter placed Monitor UOP, has been adequate so far Consult Dr Whatley Creatinine improve Incarcerated incisional hernia Surgery consulted, no intervention needed, appreciate recs MS Chronic debility PT/OT DVT PPX: Home Eliquis Diagnosis/Problems Diagnosis/Problems (1) Sepsis Status: Acute Qualifiers: Sepsis type: sepsis due to unspecified organism Sepsis acute organ dysfunction status: with acute organ dysfunction Severe sepsis acute organ dysfunction type: acute renal failure Acute renal failure type: unspecified Severe sepsis shock status: without septic shock Qualified Codes: A41.9 - Sepsis, unspecified organism; R65.20 - Severe sepsis without septic shock; N17.9 - Acute kidney failure, unspecified (2) Cellulitis of right leg Status: Acute (3) Urinary retention Status: Acute (4) Atrial fibrillation Status: Chronic Qualifiers: Atrial fibrillation type: paroxysmal Qualified Codes: I48.0 - Paroxysmal atrial fibrillation (5) Urinary tract infection Status: Acute Qualifiers: Urinary tract infection type: acute cystitis Hematuria presence: without hematuria Qualified Codes: N30.00 - Acute cystitis without hematuria (6) COVID-19 Status: Acute Clinical Quality Measures DVT/VTE Risk/Contraindication: Risk Factor Score Per Nursin RFS Level Per Nursing on Admit: 4+=Very High ROZ WILKINS MD Jan 31, 2020 12:53
--- NOTE | 2020-01-31 12:59 | Progress Note - Surgery ---
Subjective Time Seen by a Provider: 11:31 Subjective/Events-last exam Pt seen and examined, no changes and does not appear to be in pain. Review of Systems Cardiovascular: Chest Pain Pt does not answer questions Focused Exam Lactate Level 01/29/20 20:05: Lactic Acid Level 2.29*H 01/29/20 22:51: Lactic Acid Level 2.41*H Objective Exam Vital Signs Date Time Temp Pulse Resp B/P (MAP) Pulse Ox O2 Delivery O2 Flow Rate FiO2 01/31/20 08:05 Nasal Cannula 1.50 01/31/20 07:54 36.1 87 18 130/71 (90) Nasal Cannula 2.00 01/31/20 03:05 36.7 76 16 97/52 (67) 95 Nasal Cannula 1.50 01/31/20 00:13 36.6 78 16 98/57 (71) 97 Nasal Cannula 1.50 01/30/20 20:50 Nasal Cannula 1.50 01/30/20 20:00 37.1 87 18 104/55 (71) 98 Nasal Cannula 1.50 01/30/20 19:45 Nasal Cannula 2.00 01/30/20 16:05 36.5 84 18 115/56 (75) 100 Nasal Cannula 1.50 I & O 01/31/20 07:00 Intake Total 1580 ml Output Total 1675 ml Balance -95 ml Capillary Refill : Greater Than 3 Seconds General Appearance: No Apparent Distress, Chronically ill, Thin Respiratory: Lungs Clear, Normal Breath Sounds, No Accessory Muscle Use, No Respiratory Distress Cardiovascular: Regular Rate, Rhythm, No Murmur Gastrointestinal: soft, no organomegaly, hernia (incarcerated incisional hernia), other (ostomy pink and fxn, small area of erythema near umbilicus is gone. abd is scaphoid and no signs of obstruction) Results Lab Laboratory Tests 01/31/20 05:51: White Blood Count 6.8, Red Blood Count 3.39L, Hemoglobin 10.1L, Hematocrit 32L, Mean Corpuscular Volume 94, Mean Corpuscular Hemoglobin 30, Mean Corpuscular Hemoglobin Concent 32, Red Cell Distribution Width 16.7H, Platelet Count 66L, Mean Platelet Volume 12.4H, Sodium Level 142, Potassium Level 4.5, Chloride Level 114H, Carbon Dioxide Level 17L, Anion Gap 11, Blood Urea Nitrogen 32H, Creatinine 1.25, Estimat Glomerular Filtration Rate 57, BUN/Creatinine Ratio 26, Glucose Level 65L, Calcium Level 6.9L Assessment/Plan Assessment/Plan Assessment/Plan Incarcerated Incisional Hernia Urinary Retention UTI Cellulitis Pedal edema No changes from yesterday continue current care. I believe pt's problem last were due to Urinary retention and UTI. Now that he has bennett in place his abdomen is completely soft, he does have an incarcerated hernia. However, this is a chronic condition and not causing any problems at this time. Cellulitis on the abdomen was most likely because of the abdominal distention due to urinary retention; will monitor. Pedal edema looks to be chronic, may be due to some CHF; pt's BNP is elevated. Clinical Quality Measures DVT/VTE Risk/Contraindication: Risk Factor Score Per Nursin RFS Level Per Nursing on Admit: 4+=Very High FLAVIA MONTESINOS DO Jan 31, 2020 12:59
[2020-01-31 13:05] VITALS: BP 120/56
[2020-01-31 16:00] VITALS: BP 104/58
[2020-01-31 19:00] VITALS: BP 133/81
[2020-01-31] MEDS: TAMSULOSIN 0.4 MG (FLOMAX) CAP PO SCH (20:49)
[2020-01-31] MEDS: QUEtiapine 25 MG (SEROquel) TAB IMMEDIATE RELEASE PO SCH (20:49)
[2020-01-31] MEDS: ALPRAZolam 0.5 MG (XANAX) TAB PO SCH (20:49)
[2020-01-31] MEDS ORDERED: TROUGH ORDER-PHARMACY XX NR (21:00)
[2020-01-31] MEDS: VANCOMYCIN 1 GM/NS 250 ML IVPB IV SCH ×2 (22:06)
[2020-02-01] VITALS (8 sets, daily range): BP systolic 99–153; BP diastolic 59–87
[2020-02-01] MEDS: NS IV 1000 ML 1,000 ML IV SCH (01:26)
[2020-02-01] MEDS: AMIODARONE 200 MG (CORDARONE) TAB PO SCH ×2 (01:28→13:30)
[2020-02-01] MEDS: PIPERACILLIN/TAZO 4.5 GM/NS 100 ML IV SCH ×2 (04:05)
[2020-02-01 05:08] LABS: HEMATOCRIT 40 % (40-54); HEMOGLOBIN 12.5 g/dL (13.3-17.7); MEAN CORPUSCULAR HEMOGLOBIN 29 pg (25-34); MEAN CORPUSCULAR HGB CONC 31 g/dL (32-36); MEAN CORPUSCULAR VOLUME 95 fL (80-99); PLATELET COUNT 86 10^3/uL (130-400); WHITE BLOOD COUNT 5.7 10^3/uL (4.3-11.0)
[2020-02-01 05:20] LABS: POTASSIUM 4.3 MMOL/L (3.6-5.0)
[2020-02-01 05:21] LABS: CALCIUM 7.4 MG/DL (8.5-10.1)
[2020-02-01 05:25] LABS: CREATININE SERUM 1.3 MG/DL (0.60-1.30)
[2020-02-01] MEDS: dexAMETHasone 6 MG TAB (DECADRON) PO SCH (06:12)
[2020-02-01] MEDS: morphine ER 30 MG (MS CONTIN) TAB PO SCH ×3 (06:12→21:07)
[2020-02-01] MEDS: MIDODRINE 10 MG (PROAMATINE) TAB PO SCH ×3 (09:57→20:25)
[2020-02-01] MEDS: PREGABALIN 75 MG (LYRICA) CAP PO SCH ×3 (09:57→21:07)
[2020-02-01] MEDS: MEGESTROL ACETATE 400 MG/10 ML (MEGACE) UDC PO SCH (09:57)
[2020-02-01] MEDS: FLUTICASONE NASAL SPRAY (FLONASE) 16 GM BTL NS SCH (09:57)
[2020-02-01] MEDS: MULTIVIT W/MINERALS TAB (THERAGRAN M) PO SCH (09:57)
[2020-02-01] MEDS: MAGNESIUM OXIDE (MAG-OX)400 MG TAB PO SCH (09:57)
[2020-02-01] MEDS: APIXABAN 5 MG (ELIQUIS) TABLET PO SCH ×2 (09:57→20:24)
[2020-02-01] MEDS: FAMOTIDINE 20 MG (PEPCID) TABLET PO SCH ×2 (09:57→20:24)
[2020-02-01] MEDS ORDERED: VANCOMYCIN INJECTION 750 MG in NS (IVPB) 250 ML IV SCH (10:00)
--- NOTE | 2020-02-01 10:30 | Physical Therapy Progress Note ---
Therapy Progress Note Patient is dependent PLOF with [place] Lift transfer at [place]. RN reports he is highly agitated and verbal and states PT is not necessary. No PT indicated. ABELARDO STOVALL PT Feb 01, 2020 10:30
[2020-02-01] MEDS ORDERED: FLUT1BLS3 INH (11:55)
--- NOTE | 2020-02-01 12:01 | NUR ---
MED REC WAS COMPLETED USING [facility] [employer] [facility]
[2020-02-01] MEDS ORDERED: TRIM/SULFAMETH 160/800 (SEPTRA DS) TAB PO NR (12:15)
--- NOTE | 2020-02-01 14:04 | Occupational Therapy Eval ---
OT Evaluation-General/PLF Medical Diagnosis Admission Date Jan 30, 2020 at 00:30 Medical Diagnosis: Sepis/COVID+ Onset Date: Jan 29, 2020 Therapy Diagnosis Therapy Diagnosis: Impaired ADLs. Height/Weight Height (Feet): 5 Height (Inches): 8.00 Weight (Pounds): 156 Weight (Ounces): 2.0 Precautions Precautions/Isolations: Contact Isolation, Droplet Isolation Referral Physician: Te Referral Reason: Evaluation/Treatment Medical History Pertinent Medical History: Alcoholism, COPD, Heart Failure, Renal Insufficiency Additional Medical History emphysema, colostomy surgery, CHF, MS, arthritis, depression, AFib Current History Pt to ED via EMS due to bilateral leg swelling Social History Home: Long-Term ADL-Prior Level of Function SCALE: Activities may be completed with or without assistive devices. 2-Bjvrajsvvm-vjhgdlv completes the activity by him/herself with no assistance from a helper. 5-Set-up or Clean-up Assistance-helper sets up or cleans up; patient completes activity. [place] assists only prior to or following the activity. 4-Supervision or Touching Assistance-helper provides verbal cues and/or touching/steadying and/or contact guard assistance as patient completes activity. Assistance may be provided throughout the activity or intermittently. 3-Partial/Moderate Assistance-helper does LESS THAN HALF the effort. [place] lifts, holds or supports trunk or limbs, but provides less than half the effort. 2-Substantial/Maximal Assistance-helper does MORE THAN HALF the effort. [place] lifts or holds trunk or limbs and provides more than half the effort. 0-Bkpxqpolv-iryyjw does ALL the effort. Patient does none of the effort to complete the activity. Or, the assistance of 2 or more helpers is required for the patient to complete the activity. If activity was not attempted, code reason: 7-Patient Refused. 9-Not Applicable-not attempted and the patient did not perform the activity before the current illness, exacerbation or injury. 10-Not Attempted due to Environmental Limitations-(lack of equipment, weather restraints, etc.). 88-Not Attempted due to Medical Conditions or Safety Concerns. ADL PLOF Comments Pt resides at a detention where he has assistance with bathing, toileting, and dressing. He has meals provided but indicates he is able to use utensils to feed himself. Transfers are performed via [facility]. Self Care: Needed Some Help Functional Cognition: Needed Some Help OT Current Status Subjective Pt laying in bed, agreeable to OT evaluation Current Upper Extremity ROM WFL, BUE shoulder flexion to approx 150 degrees, he is able to touch the back of his head with his hands. ADL-Treatment Eating (QC): 6 (Pt able to pecan picker almonds from container, bring to mouth, chew and swallow. Pt also able to reach forward for cup, bring to mouth and drink.) Other Treatments Pt laying in bed, agreeable to OT evaluation. OT educates pt on purpose and benefits of OT. Pt provided information about PLOF, stating he has assistance with all ADLs, and meals provided to him. He is able to eat and bring food to his mouth at PLOF. Pt eating almonds with HOB raised, pt has no difficulty reaching forward grabbing almond and bringing to his mouth. He is also able to reach forward and grab his cup in order to take a drink. Pt is at his PLOF and no skilled OT services are indicated at this time. Post OT tx, pt laying in bed, call light in reach and all needs met. Education OT Patient Education: Correct positioning, Modified ADL techniques, Progress toward Goal/Update tx plan, Purpose of tx/functional activities Teaching Recipient: Patient Teaching Methods: Discussion Response to Teaching: Verbalize Understanding OT Tap And Die Maker Technician Goals [facility] Goals 1=Demonstrate adherence to instructed precautions during ADL tasks. 2=Patient will verbalize/demonstrate understanding of assistive devices/modifications for ADL. 3=Patient will improve strength/tolerance for activity to enable patient to perform ADL's. OT Education/Plan Problem List/Assessment Assessment: No Skilled OT Needs ID'd Pt is at his PLOF, he is able to feed himself independently. No skilled OT services are indicated at this time, d/c from OT. Discharge Recommendations Plan/Recommendations: Discontinue OT Treatment Plan/Plan of Care Treatment,Training & Education: Yes Patient would benefit from OT for education, treatment and training to promote independence in ADL's, mobility, safety and/or upper extremity function for ADL's. Plan of Care: ADL Retraining Treatment Duration: Feb 01, 2020 Frequency: 1 time per week (eval only) Time/GCodes Start Time: 13:38 Stop Time: 13:48 Total Time Billed (hr/min): 10 Billed Treatment Time 1, EVL CRUMPACKER,YAN OT Feb 01, 2020 14:04
--- NOTE | 2020-02-01 14:26 | NUR ---
"RD ASSESSMENT PMHx: COPD; afib; MS; PT INTERACTION: Note pt is currently in COVID isolation, per chart review. Note all diet information for nutrition assessment is per Tawana RN or per chart review. Tawana states current appetite is not good. Note avg PO intake <25% x2d, per chart review. Tawana states no issues with nausea, vomiting, constipation, or diarrhea that she is aware of. Note last BM was 01/31, and pt not currently on bowel regimen per chart review. Note recent 2# wt loss x4mon, per chart review. Note presence of wound (R leg, coccyx/sacrum), per chart review. ABNORMAL NUTRITION-RELATED LAB VALUES LOW: Ca 7.4; HIGH: Cl 111; BNU 26; glu 122; Est. kcal needs: 7418-1863 kcal | 25-30 kcal/kg Est. Pro needs: 77-90 g Pro | 1.2-1.4 g Pro/kg PES STATEMENT: Inadequate oral intake (NI-2.1) related to loss of appetite, as evidenced by chart review, communication with RN, and avg PO intake <25% x2d. Inadequate protein intake (NI-5.6.1) related to increased protein needs as evidenced by presence of wounds (R leg, coccyx/sacrum). INTERVENTION: Continue with current diet order of CHO 60g/m 3snack diet. Pt may benefit from regular diet, as pt does not have hx of DM, per chart review. Add Ensure HP (vary) to meals TID. Provides 160 kcal and 16 g Pro per serving, for perceived benefit to wound healing. Will continue to follow and reassess as pt needs, intake, and status change. Kala Asher, MS RD LD"
--- NOTE | 2020-02-01 15:43 | Progress Note - Hospitalist ---
Subjective HPI/CC On Admission Date Seen by Provider: Feb 01, 2020 Time Seen by Provider: 10:20 Pt is 69yoCM with a PMH of COPD, a fib, MS, and depression who presented to the ER due to leg swelling. Unfortunately Mr Ornelas would not let me examine him or discuss his illness. When I asked if I could at least listen to his heart and lungs he stated "quit jabbering and get out." He then covered himself back up with his blanket. I honored his request and left. All history is obtained from the record but obviously very limited. Subjective/Events-last exam He reports no complaints. When asked he reports bilateral leg pain. He denies fevers. He denies trouble breathing. Focused Exam Lactate Level 01/29/20 20:05: Lactic Acid Level 2.29*H 01/29/20 22:51: Lactic Acid Level 2.41*H Objective Exam Vital Signs Vital Signs Date Time Temp Pulse Resp B/P (MAP) Pulse Ox O2 Delivery O2 Flow Rate FiO2 02/01/20 11:02 36.8 82 20 123/77 (92) 97 Nasal Cannula 0.50 Capillary Refill : Greater Than 3 Seconds General Appearance: No Apparent Distress, WD/WN Respiratory: Lungs Clear, Normal Breath Sounds, No Respiratory Distress Cardiovascular: Regular Rate, Rhythm, No Edema, No Murmur Gastrointestinal: Normal Bowel Sounds, Non Tender, Soft Extremity: Inflammation, Pedal Edema, Swelling Neurologic/Psychiatric: Alert, Normal Mood/Affect, Motor Weakness Results/Procedures Lab Laboratory Tests 02/01/20 04:42 Patient resulted labs reviewed. Imaging: Reviewed Imaging Report Assessment/Plan Assessment and Plan Assess & Plan/Chief Complaint Cellulitis of the legs Vanc and Zosyn Blood cultures with no growth Tranition to Bactrim Acute respiratory failure due to COVID-19 CT chest shows no acute changes but emphysema noted COVID PCR positive Decadron Convalescent plasma ordered Urinary Retention MAURICIO Catheter placed Monitor UOP Dr Whatley consulted Creatinine improved Incarcerated incisional hernia Surgery consulted, no intervention needed, appreciate recs MS Chronic debility PT/OT AFib Eliquis DVT PPX: already receiving therapeutic anticoagulation Severe sepsis, resolved Diagnosis/Problems Diagnosis/Problems (1) Acute respiratory failure due to COVID-19 Status: Acute (2) Bilateral lower leg cellulitis Status: Acute (3) MAURICIO (acute kidney injury) Status: Acute (4) Urinary retention Status: Acute (5) Multiple sclerosis Status: Chronic (6) Wheelchair dependence Status: Chronic (7) Atrial fibrillation Status: Chronic Qualifiers: Atrial fibrillation type: paroxysmal Qualified Codes: I48.0 - Paroxysmal atrial fibrillation Clinical Quality Measures DVT/VTE Risk/Contraindication: Risk Factor Score Per Nursin RFS Level Per Nursing on Admit: 4+=Very High BERRY BISHOP MD Feb 01, 2020 15:43
[2020-02-01] MEDS: TRIM/SULFAMETH 160/800 (SEPTRA DS) TAB PO SCH (17:30)
[2020-02-01] MEDS: QUEtiapine 25 MG (SEROquel) TAB IMMEDIATE RELEASE PO SCH (20:24)
[2020-02-01] MEDS: ALPRAZolam 0.5 MG (XANAX) TAB PO SCH (20:24)
[2020-02-01] MEDS: TAMSULOSIN 0.4 MG (FLOMAX) CAP PO SCH (20:25)
[2020-02-02 00:07] VITALS: BP 110/63
[2020-02-02] MEDS: AMIODARONE 200 MG (CORDARONE) TAB PO SCH ×2 (02:14→14:36)
[2020-02-02] MEDS: NS IV 1000 ML 1,000 ML IV SCH (02:14)
[2020-02-02 04:11] VITALS: BP 143/80
[2020-02-02] MEDS: dexAMETHasone 6 MG TAB (DECADRON) PO SCH (06:12)
[2020-02-02] MEDS: morphine ER 30 MG (MS CONTIN) TAB PO SCH ×2 (06:12→14:36)
[2020-02-02 08:06] VITALS: BP 152/78
[2020-02-02] MEDS ORDERED: TROUGH ORDER-PHARMACY XX NR (09:00)
[2020-02-02] MEDS: TRIM/SULFAMETH 160/800 (SEPTRA DS) TAB PO SCH (09:08)
[2020-02-02] MEDS: FLUTICASONE NASAL SPRAY (FLONASE) 16 GM BTL NS SCH (09:09)
[2020-02-02] MEDS: MAGNESIUM OXIDE (MAG-OX)400 MG TAB PO SCH (09:09)
[2020-02-02] MEDS: FAMOTIDINE 20 MG (PEPCID) TABLET PO SCH (09:10)
[2020-02-02] MEDS: MEGESTROL ACETATE 400 MG/10 ML (MEGACE) UDC PO SCH (09:10)
[2020-02-02] MEDS: MULTIVIT W/MINERALS TAB (THERAGRAN M) PO SCH (09:10)
[2020-02-02] MEDS: PREGABALIN 75 MG (LYRICA) CAP PO SCH ×2 (09:10→14:35)
[2020-02-02] MEDS: APIXABAN 5 MG (ELIQUIS) TABLET PO SCH (09:10)
[2020-02-02] MEDS: MIDODRINE 10 MG (PROAMATINE) TAB PO SCH ×2 (09:11→14:35)
[2020-02-02 09:27] LABS: BASOPHILS % (AUTO) 0 % (0-10); NEUTROPHILS % (AUTO) 92 % (42-75)
[2020-02-02 09:29] LABS: EOSINOPHILS % (AUTO) 0 % (0-10); HEMATOCRIT 39 % (40-54); HEMOGLOBIN 12.4 g/dL (13.3-17.7); LYMPHOCYTES # (AUTO) 0.4 10^3/uL (1.0-4.0); LYMPHOCYTES % (AUTO) 5 % (12-44); MEAN CORPUSCULAR HEMOGLOBIN 30 pg (25-34); MEAN CORPUSCULAR HGB CONC 32 g/dL (32-36); MEAN CORPUSCULAR VOLUME 93 fL (80-99); MONOCYTES # (AUTO) 0.2 10^3/uL (0.0-1.0); MONOCYTES % (AUTO) 3 % (0-12); NEUTROPHILS # (AUTO) 7.8 10^3/uL (1.8-7.8); PLATELET COUNT 68 10^3/uL (130-400); WHITE BLOOD COUNT 8.5 10^3/uL (4.3-11.0)
[2020-02-02 09:44] LABS: CHLORIDE 110 MMOL/L (98-107); SODIUM 140 MMOL/L (135-145)
[2020-02-02 09:45] LABS: CALCIUM 7.5 MG/DL (8.5-10.1); GLUCOSE 94 MG/DL (70-105)
[2020-02-02 09:47] LABS: CARBON DIOXIDE 22 MMOL/L (21-32)
[2020-02-02 09:49] LABS: CREATININE SERUM 1.06 MG/DL (0.60-1.30); GFR ESTIMATED > 60
[2020-02-02 09:50] LABS: BUN/CREATININE RATIO 20
[2020-02-02 10:41] LABS: BAND NEUTROPHILS 9 %; BASOPHILS % (MANUAL) 0 %; EOSINOPHILS % (MANUAL) 0 %; LYMPHOCYTES % (MANUAL) 3 %; METAMYELOCYTES % 2 %; MONOCYTES % (MANUAL) 2 %; NEUTROPHILS % (MANUAL) 84 %
[2020-02-02 10:42] LABS: TOXIC GRANULATION/VACUOLAZATIO 1+
[2020-02-02 11:22] VITALS: BP 125/74
--- NOTE | 2020-02-02 13:21 | NUR ---
CM/SS: Telephone call to [facility] [phone] ([place]) to notify about the pt being discharged today. He has requested records and orders. This worker will fax. He request that pt return non emergent EMS. He asks if pt has declined - this worker indicates pt is about the same - no noted decline during this stay. He reports they have been looking at Hospice for pt. He verifies the fax number of [phone]. This worker will fax over the information and arrange non emergent EMS transfer.
[2020-02-02] MEDS ORDERED: Trimethoprim/Sulfamethoxazole PO (15:10)
[2020-02-02 16:00] VITALS: BP 140/76
--- NOTE | 2020-02-02 16:22 | NUR ---
CM/SS: Information faxed to [facility] - [phone] - pt has been on services before. They will resume care of pt. at time of discharge.
--- NOTE | 2020-02-02 16:49 | NUR ---
CM/SS: [facility] is notified that pt will be returning non emergent EMS. They are also notified that it could be later this evening as EMS has two transfers prior to picking up pt. Staff verbalized understanding.
[2020-02-02 17:00] VITALS: BP 125/74
== END 2020-02-02 17:00 | DRG 871 ==
LOC: ER FS 19:56 → EDUNIT# 19:56 → CSD 01-30 00:30 → ER FS 01-30 02:15 → 4TH 01-30 12:50
PROVIDERS: ADMIT Family Medicine; ATTEND Internal Medicine
PROC: XW13325 Transfusion of Convalescent Plasma (Nonautologous) into Peripheral Vein, Percutaneous Approach, New Technology Group 5 (ICD-10-PCS; principal; 2020-02-01)
DX: A41.9 Sepsis, unspecified organism (principal); U07.1 COVID-19; J96.01 Acute respiratory failure with hypoxia; L03.115 Cellulitis of right lower limb; K43.0 Incisional hernia with obstruction, without gangrene; N17.9 Acute kidney failure, unspecified; N39.0 Urinary tract infection, site not specified; R65.20 Severe sepsis without septic shock; R33.9 Retention of urine, unspecified; I48.91 Unspecified atrial fibrillation; G35 Multiple sclerosis; F32.9 Major depressive disorder, single episode, unspecified; M19.90 Unspecified osteoarthritis, unspecified site; R53.81 Other malaise; I50.9 Heart failure, unspecified; J43.9 Emphysema, unspecified
CPT/HCPCS: 36415; 51702; 70450; 71045; 71250; 74176; 80048; 80053; 80202; 81000; 82805; 82962; 83605; 83880; 84484; 85007; 85027; 86141; 86900; 86901; 87040; 87088; 87635; 93005; 96365; 96367

== ENCOUNTER 2020-02-04 16:09 | Emergency (ER) | payer MEDICARE, MEDICAID ==
[~2020-02-04 16:09] MED LIST changes: +FLUT1BLS3 INH; +MELA1TAB27 PO; +MIDO5TAB3 PO; +Trimethoprim/Sulfamethoxazole PO
--- NOTE | 2020-02-04 17:00 | Diagnostic Imaging Report ---
Indication: Right lower leg injury from a fall AP and lateral views of the right tibia-fibula show a fracture of the fibular neck that is nondisplaced. The tibia appears to be grossly intact. IMPRESSION: Nondisplaced right fibular neck fracture. Dictated by: Dictated on workstation # [id number]
--- NOTE | 2020-02-04 17:04 | ED Lower Extremity ---
General Chief Complaint: Lower Extremity Stated Complaint: FALL Nursing Triage Note: Having R lower leg pain. States he was transferring from bed to wheelchair yesterday when wheelchair slipped and he slid to the floor. States he twisted leg on the way down. Is from [facility]. Was recently in hospital for cellulitis. Tested positive for COVID on 01/28. Nursing Sepsis Screen: No Definite Risk Source: patient, EMS History of Present Illness Date Seen by Provider: Feb 04, 2020 Time Seen by Provider: 17:04 Initial Comments 69-year-old male presents with right leg pain for the last day. He is mostly bedridden but stands for transfers to a wheelchair. He states that 2 days ago he had slid out of bed when trying to get into the wheelchair and twisted his leg. Then yesterday he had his leg twisted when trying to transfer into a wheelchair. He has had severe pain since yesterday. The staff at [facility] had him transported for an x-ray today. He recently tested positive for COVID-19 on January 28. He states that he does not walk but he does stand for transfers from the bed to wheelchair. He denies hitting his head or having any other injuries. He has not taken anything for pain. Allergies and Home Medications Allergies Coded Allergies: No Known Drug Allergies (Unverified , 05/24/19) Home Medications Acetaminophen 500 Mg Tablet, 500 MG PO Q6H PRN for PAIN-MILD OR TEMPATURE, (Reported) Alprazolam 0.5 Mg Tablet, 0.5 MG PO HS, (Reported) Amino Acids/Protein Hydrolys 887 Ml Liquid, 30 ML PO DAILY, (Reported) Amiodarone HCl 200 Mg Tablet, 200 MG PO Q12H, (Reported) Apixaban 5 Mg Tablet, 5 MG PO BID, (Reported) Citalopram Hydrobromide 20 Mg Tablet, 20 MG PO DAILY, (Reported) TAKES 20MG +10MG TO EQUAL 30MG DAILY Citalopram Hydrobromide 10 Mg Tablet, 10 MG PO DAILY, (Reported) TAKES 20MG +10MG TO EQUAL 30MG DAILY Famotidine 20 Mg Tablet, 20 MG PO BID, (Reported) Fluticasone Propionate 16 Gm [place].susp, 2 SPRAYS NS DAILY, (Reported) Fluticasone/Umeclidin/Vilanter 1 Each Blst.w.dev, 1 PUFF INH DAILY, (Reported) Ipratropium/Albuterol Sulfate 3 Ml Ampul.neb, 3 ML NEB Q6H PRN for SHORTNESS OF BREATH, (Reported) Magnesium Oxide 400 Mg Tablet, 400 MG PO DAILY, (Reported) Megestrol Acetate 400 Mg/10 Ml Oral.susp, 10 ML PO DAILY, (Reported) Melatonin/Pyridoxine HCl (B6) 1 Each Tablet, 3 MG PO HS PRN for INSOMNIA, (Repo rted) Midodrine HCl 5 Mg Tablet, 5 MG PO TID, (Reported) Morphine Sulfate 30 Mg Tablet.er, 30 MG PO 0600,1400,2200, (Reported) Multivitamin 1 Each Tablet, 1 TAB PO DAILY, (Reported) Ondansetron HCl 4 Mg Tab, 4 MG PO Q4H PRN for NAUSEA/VOMITING-1ST LINE, (R eported) Pregabalin 225 Mg Capsule, 225 MG PO TID, (Reported) Quetiapine Fumarate 50 Mg Tablet, 50 MG PO HS, (Reported) Tamsulosin HCl 0.4 Mg Cap, 0.4 MG PO HS, (Reported) Tramadol HCl 50 Mg Tablet, 100 MG PO Q6H PRN for PAIN-MODERATE, (Reported) Tramadol HCl 50 Mg Tablet, 50 MG PO Q6H PRN for PAIN-SEVERE (8-10) Prescribed by: PRASAD MONTOYA on 02/04/20 1744 Zinc Gluconate 30 Mg Tablet, 30 MG PO DAILY, (Reported) [Trimethoprim/Sulfamethoxazole] 1 EA TAB, 1 EA PO BID WITH MEALS Prescribed by: BERRY BISHOP on 02/02/20 1510 Patient Home Medication List Home Medication List Reviewed: Yes Review of Systems Constitutional: No chills, No fever EENTM: no symptoms reported Respiratory: cough (occasional.) Cardiovascular: no symptoms reported Gastrointestinal: no symptoms reported Genitourinary: no symptoms reported Musculoskeletal: see HPI Skin: change in color (multiple areas of bruising and abrasions) Psychiatric/Neurological: No Symptoms Reported Past Jdfsfms-[id number]-Qnslya Hx Past Med/Social Hx: Reviewed Nursing Past Med/Soc Hx Patient Social History Alcohol Use: Occasionally Uses Number of Drinks Today: AA Alcohol Beverage of Choice: Beer Recreational Drug Use: No Smoking Status: Current Everyday Smoker Type Used: Cigarettes 2nd Hand Smoke Exposure: No Recent Foreign Travel: No Contact w/Someone Who Travel: No Recent Infectious Disease Expo: No Recent Hopitalizations: No Physical Abuse: No Sexual Abuse: No Mistreated: No Fear: No Immunizations Up To Date Date of Pneumonia Vaccine: Dec 09, 2017 Date of Influenza Vaccine: Dec 30, 2019 Seasonal Allergies Seasonal Allergies: No Past Medical History Surgeries: Yes (Colostomy) Respiratory: Yes (Home O2) COPD, Emphysema Cardiac: Yes (CHF) Irregular Heartbeat Neurological: Yes Multiple Sclerosis Genitourinary: Yes (renal insufficiency) Gastrointestinal: Yes (Colostomy; ventral hernia) Musculoskeletal: Yes Arthritis Endocrine: No HEENT: No Cancer: No Psychosocial: Yes Depression Integumentary: No Blood Disorders: No Family Medical History FH: CHF (congestive heart failure) 19 FATHER, , Age:70, Onset:60 years & older Heart Disease Physical Exam Vital Signs Vital Signs - First Documented 02/04/20 16:12 Temp 37.0 Pulse 90 Resp 18 B/P (MAP) 139/68 (91) Pulse Ox 98 Capillary Refill : Less Than 3 Seconds Height, Weight, BMI Height: 5'8.00" Weight: 156lbs. 2.0oz. 70.781911qy; 20.58 BMI Method:Stated General Appearance: no apparent distress, other (appears chronically ill) Knees: right knee pain (tender to palpation especially over the proximal fibular head), right knee soft tissue tenderness; bilateral knee other (bilateral pedal edema with mild erythema) Neurologic/Psychiatric: alert, oriented x 3 Skin: warm/dry, other (mild erythema to the bilateral lower extremities with pedal edema) Procedures/Interventions Date of ETT Placement: Sep 03, 2018 Time of ETT Placement: 1032 Progress/Results/Core Measures Results/Orders My Orders Orders - PRASAD MONTOYA MD Tibia Fibula 2 View Right (02/04/20 16:26) Knee Immobilizer (02/04/20 17:27) Rx-Tramadol Hcl (Rx-Ultram) (02/04/20 17:30) Tramadol Tablet (Ultram Tablet) (02/04/20 17:27) Acetaminophen Tablet (Tylenol Tablet) (02/04/20 17:27) Vital Signs/I&O 02/04/20 02/04/20 16:12 18:00 Temp 37.0 Pulse 90 90 Resp 18 18 B/P (MAP) 139/68 (91) 125/65 Pulse Ox 98 99 Blood Pressure Mean: 91 Progress Progress Note : Progress Note X-rays of the right tib-fib showed nondisplaced proximal fibular head fracture. Counseled patient on results and will place in a knee immobilizer. Advised to be nonweightbearing on this leg and follow-up with orthopedics. As patient does not walk and only bears weight enough to do standing transfers the knee immobilizer may be all the treatment he needs. However follow-up with orthopedics would be beneficial to see if there was any additional treatment or more specific splint to be helpful for him. Counseled on follow-up and return precautions. As for pain and will use tramadol since he has taken that previously from review of his medication history in the computer. Advised to use Tylenol if needed on top. Resume all other medications on return to the [facility]. Diagnostic Imaging Diagonstic Imaging: Xray Plain Films/CT/US/NM/MRI: leg Comments NAME: TRISTAN MESSINA [facility] REC#: [id number] PT STATUS: REG ER : 1950 PHYSICIAN: PRASAD MONTOYA MD ADMIT DATE: 02/04/20/ER FS Signed Date of Exam:02/04/20 TIBIA FIBULA 2 VIEW RIGHT Indication: Right lower leg injury from a fall AP and lateral views of the right tibia-fibula show a fracture of the fibular neck that is nondisplaced. The tibia appears to be grossly intact. IMPRESSION: Nondisplaced right fibular neck fracture. Dictated by: Dictated on workstation # [id number] Dict: 02/04/201656 Trans: 02/04/201658 [id number] Interpreted by: HARRY NARAYAN MD Electronically signed by: HARRY NARAYAN MD 02/04/201658 Departure Impression Primary Impression: Closed traumatic nondisplaced fracture of proximal end of right fibula Qualified Codes: S82.831A - Other fracture of upper and lower end of right fibula, initial encounter for closed fracture Disposition: 01 HOME, SELF-CARE Condition: Stable Departure-Patient Inst. Decision time for Depature: 17:36 Referrals: ROCHELLE VASQUEZ MD (PCP/Family) Primary Care Physician Patient Instructions: Fibula Fracture (DC) Add. Discharge Instructions: Call Orthopedics for follow up with Madi Mandel at [phone]. Wear Knee immobilizer at all times to stabilize fracture of proximal right fibula. Non weight bearing on right leg to help keep fracture from moving or getting displaced. All discharge instructions reviewed with patient and/or family. Voiced understanding. Scripts Tramadol HCl (Tramadol HCl) 50 Mg Tablet 50 MG PO Q6H PRN for PAIN-SEVERE (8-10) for 5 Days, #20 TAB 0 Refills Prov: PRASAD MONTOYA MD 02/04/20 PRASAD MONTOYA MD Feb 04, 2020 17:04
[2020-02-04] MEDS ORDERED: ACETAMINOPHEN 500 MG TAB (TYLENOL) PO STA (17:27)
[2020-02-04] MEDS ORDERED: RX-TRAMADOL 50 MG (ULTRAM) TAB PPK#4 PO PRN (17:30)
[2020-02-04] MEDS ORDERED: TRM50T PO (17:42)
--- NOTE | 2020-02-04 17:58 | NUR ---
Patient declined to have family called and updated on status.
[2020-02-04 18:00] VITALS: BP 125/65
== END 2020-02-04 18:00 | disposition home or self-care (01) ==
LOC: EDUNIT# 16:09 → ER FS 16:10
DX: S82.831A Other fracture of upper and lower end of right fibula, initial encounter for closed fracture (principal); F32.9 Major depressive disorder, single episode, unspecified; F17.210 Nicotine dependence, cigarettes, uncomplicated; Z82.49 Family history of ischemic heart disease and other diseases of the circulatory system; Z79.01 Long term (current) use of anticoagulants; X50.1XXA Overexertion from prolonged static or awkward postures, initial encounter
CPT/HCPCS: 73590